=== PATIENT | female | born 1985 | race Caucasian/White ===

== ENCOUNTER 2017-08-16 22:18 | Emergency (ER) | payer SELFPAY ==
[2017-08-16 23:57] LABS: Urine Blood NEGATIVE (NEG); Urine Glucose NEGATIVE (NEG); Urine Protein NEGATIVE (NEG); Urine Specific Gravity <1.005 (1.005-1.030); Urine pH 5.5 (5.0-7.0)
--- NOTE | 2017-08-17 00:12 | ER ---
Nurse's Notes [facility] Name: Joyce Mera Age: 31 yrs Sex: Female : 1985 Arrival Date: 08/16/2017 Time: 22:20 Bed 8 Private MD: Diagnosis: Plantar fascial fibromatosis;Essential (primary) hypertension;Sprain of other specified parts of knee Presentation: 08/16 22:30 Presenting complaint: Patient states: that every morning she wakes up and cannot walk fc on her feet due to pain and swelling. Also has pain behind right knee. BP high 182/122 at [facility] yesterday. Transition of care: patient was not received from another setting of care. Onset of symptoms was 2017. Initial Sepsis Screen: Does the patient meet any 2 criteria? No. Patient's initial sepsis screen is negative. Does the patient have a suspected source of infection? No. Patient's initial sepsis screen is negative. Care prior to arrival: Medication(s) given: Motrin, last at 1430 Tylenol, last at 1430. 22:30 Method Of Arrival: Ambulatory fc 22:30 Acuity: ALICIA 3 fc PROMPT CARE RN: 22:33 LMP 08/01/2017 fc Historical: - Allergies: 22:33 No Known Allergies; fc - Home Meds: 22:33 None [Active]; fc - PMHx: 22:33 Hypertension; fc - PSHx: 22:33 ; fc - Immunization history:: Last tetanus immunization: up to date. - Social history:: Smoking status: Patient/guardian denies using tobacco. Screenin:18 Abuse screen: Denies threats or abuse. Nutritional screening: No deficits noted. ea Tuberculosis screening: No symptoms or risk factors identified. Fall Risk None identified. Assessment: 23:15 General: Appears uncomfortable, Behavior is calm, cooperative, appropriate for age. ea General: "I took my blood pressure at [facility] and it read super high, I have been having headaches and my right knee feels swollen". Pain: Complains of pain in right knee Pain radiates to right foot Pain currently is 8 out of 10 on a pain scale. Quality of pain is described as aching. Neuro: Level of Consciousness is awake, alert, obeys commands, Oriented to person, place, time, situation. Cardiovascular: Heart tones S1 S2 present Patient's skin is warm and dry. Respiratory: Airway is patent Respiratory effort is even, unlabored, Respiratory pattern is regular, symmetrical, Breath sounds are clear bilaterally. GI: Abdomen is non-distended, Bowel sounds present X 4 quads. Abd is soft and non tender. : No signs and/or symptoms were reported regarding the genitourinary system. EENT: No signs and/or symptoms were reported regarding the EENT system. Derm: Skin is pink, warm \\T\\ dry. Vital Signs: 22:34 BP 157 / 107; Pulse 98; Resp 18; Temp 97.9(TE); Pulse Ox 100% on R/A; Weight 99.79 kg fc (R); Height 5 ft. 3 in. (160.02 cm) (R); Pain 8/10; 23:45 BP 147 / 89; Pulse 81; Resp 18; Pulse Ox 100% on R/A; ea 22:34 Body Mass Index 38.97 (99.79 kg, 160.02 cm) fc ED Course: 22:20 Patient arrived in ED. am2 22:32 Triage completed. fc 22:33 Arm band placed on left wrist. Patient placed in an exam room, on a stretcher, Patient fc notified of wait time. 22:44 Abilio Fernandez MD is Attending Physician. gs 23:07 Pretty Hdez RN is Primary Nurse. ea 23:17 Patient has correct armband on for positive identification. Placed in gown. Bed in low ea position. Call light in reach. Side rails up X 1. [id number] 00:10 José Miguel Yu DO is Referral Physician. gs 00:10 No provider procedures requiring assistance completed. Patient did not have IV access ea during this emergency room visit. Administered Medications: No medications were administered Outcome: 00:11 Discharge ordered by . gs 00:15 Discharged to home ambulatory, with significant other. ea 00:15 Condition: good 00:15 Discharge instructions given to patient, Instructed on discharge instructions, follow up and referral plans. Demonstrated understanding of instructions, follow-up care. 00:15 Patient left the ED. ea Signatures: Laura Hodge RN RN Roselia Rowell am2 Pretty Hdez RN RN ea Starr, Gregory, MD MD
--- NOTE | 2017-08-17 00:12 | EDPHYS ---
Physician Documentation [facility] Name: Joyce Mera Age: 31 yrs Sex: Female : 1985 Arrival Date: 08/16/2017 Time: 22:20 Bed 8 Private MD: ED Physician Abilio Fernandez HPI: 08/17 00:04 This 31 yrs old Female presents to ER via Ambulatory with complaints of Feet gs Swelling, High Blood Pressure. 00:04 The patient presents with pain, that is acute, bilateral heel pain. The complaints gs affect the left foot, right foot. Context: Mechanism of Injury: Unknown the patient can fully bear weight. Onset: The symptoms/episode began/occurred 5 day(s) ago. Modifying factors: The symptoms are alleviated by nothing, the symptoms are aggravated by weight bearing, movement, wearing shoes. Associated signs and symptoms: Pertinent negatives: numbness, swelling, tingling. Severity of symptoms: At their worst the symptoms were moderate, in the emergency department the symptoms are unchanged. The patient has experienced similar episodes in the past, a few times. also noted bp elevated on no bp meds has had documented before. 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 - Social history:: Smoking status: Patient/guardian denies using tobacco. ROS: 08/17 00:04 All other systems are negative. gs Exam: 00:04 Head/Face: Normocephalic, atraumatic. Eyes: Pupils equal round and reactive to light, gs extra-ocular motions intact. Lids and lashes normal. Conjunctiva and sclera are non-icteric and not injected. Cornea within normal limits. Periorbital areas with no swelling, redness, or edema. ENT: Nares patent. No nasal discharge, no septal abnormalities noted. Tympanic membranes are normal and external auditory canals are clear. Oropharynx with no redness, swelling, or masses, exudates, or evidence of obstruction, uvula midline. Mucous membranes moist. Neck: Trachea midline, no thyromegaly or masses palpated, and no cervical lymphadenopathy. Supple, full range of motion without nuchal rigidity, or vertebral point tenderness. No Meningismus. Chest/axilla: Normal chest wall appearance and motion. Nontender with no deformity. No lesions are appreciated. Cardiovascular: Regular rate and rhythm with a normal S1 and S2. No gallops, murmurs, or rubs. Normal PMI, no JVD. No pulse deficits. Respiratory: Lungs have equal breath sounds bilaterally, clear to auscultation and percussion. No rales, rhonchi or wheezes noted. No increased work of breathing, no retractions or nasal flaring. Abdomen/GI: Soft, non-tender, with normal bowel sounds. No distension or tympany. No guarding or rebound. No evidence of tenderness throughout. Back: No spinal tenderness. No costovertebral tenderness. Full range of motion. Skin: Warm, dry with normal turgor. Normal color with no rashes, no lesions, and no evidence of cellulitis. Neuro: Awake and alert, GCS 15, oriented to person, place, time, and situation. Cranial nerves II-XII grossly intact. Motor strength 5/5 in all extremities. Sensory grossly intact. Cerebellar exam normal. Normal gait. 00:04 Constitutional: The patient appears alert, awake. 00:04 Musculoskeletal/extremity: Extremities: noted in the right foot and left foot: mild bl heel tenderness, reproduces pain, no edema, Circulation is intact in all extremities. Compartment Syndrome exam of affected extremity: is normal. Joints: the right knee displays painful range of motion, mild no swelling. Vital Signs: 08/16 22:34 BP 157 / 107; Pulse 98; Resp 18; Temp 97.9(TE); Pulse Ox 100% on R/A; Weight 99.79 kg fc (R); Height 5 ft. 3 in. (160.02 cm) (R); Pain 8/10; 23:45 BP 147 / 89; Pulse 81; Resp 18; Pulse Ox 100% on R/A; ea 22:34 Body Mass Index 38.97 (99.79 kg, 160.02 cm) fc MDM: 23:44 Patient medically screened. 08/17 00:04 Differential diagnosis: sprain, arthritis, plantar fasciitis. Data reviewed: vital gs signs, nurses notes. 00:11 Counseling: I had a detailed discussion with the patient and/or guardian regarding: the gs presence of at least one elevated blood pressure reading (>120/80) during this emergency department visit. Special discussion: I have referred the patient to see his PCP for further evaluation of high blood pressure. 08/16 22:52 Order name: Urine Dipstick--Ancillary (enter results); Complete Time: 00:12 rg2 Administered Medications: No medications were administered Disposition: 08/17/17 00:11 Discharged to Home. Impression: Plantar fascial fibromatosis, Essential (primary) hypertension, Sprain of other specified parts of knee. - Condition is Stable. - Discharge Instructions: Hypertension, Plantar Fasciitis, Managing Your High Blood Pressure. - Work release form, Medication Reconciliation Form, Thank You Letter, Antibiotic Education, Prescription Opioid Use form. - Follow up: José Miguel Yu DO; When: 2 - 3 days; Reason: Re-evaluation by your physician. Signatures: Dispatcher [employer] EDMS Laura Hodge RN RN fc Antunez, Elena, RN RN ea Starr, Gregory, MD MD gs Corrections: (The following items were deleted from the chart) 00:15 00:11 08/17/2017 00:11 Discharged to Home. Impression: Plantar fascial fibromatosis; ea Essential (primary) hypertension; Sprain of other specified parts of knee. Condition is Stable. Forms are Work release form, Medication Reconciliation Form, Thank You Letter, Antibiotic Education, Prescription Opioid Use. Follow up: José Miguel Yu; When: 2 - 3 days; Reason: Re-evaluation by your physician. gs
== END 2017-08-17 00:15 | disposition home or self-care (01) ==
LOC: ER 22:18
DX: M72.2 Plantar fascial fibromatosis (principal); I10 Essential (primary) hypertension; S83.91XA Sprain of unspecified site of right knee, initial encounter; X58.XXXA Exposure to other specified factors, initial encounter; Y92.9 Unspecified place or not applicable
CPT/HCPCS: 81003; 99281

== ENCOUNTER 2017-08-18 15:18 | Emergency (ER) | payer SELFPAY ==
[2017-08-18] MEDS ORDERED: ACETAMINOPHEN 325 MG TABLET ONE (16:25)
[2017-08-18] MEDS ORDERED: NA CHLORIDE 0.9% 1,000 ML ONE (16:26)
[2017-08-18] MEDS ORDERED: ONDANSETRON 4 MG/2 ML VIAL ONE (16:26)
[2017-08-18 16:29] LABS: Absolute Monocytes 0.3 K/uL (0.1-1.3); Absolute Neutrophil 3.8 K/uL (1.8-8.0); Basophils % 0.5 % (0-1.3); Eosinophils % 0.2 % (0-4.4); Hematocrit 15.4 % (36.0-45.0); MCH 21.4 pg (27.0-35.0); MCV 72.2 fL (80-100); MPV 8.6 fL (7.6-11.3); Monocytes % 5.5 % (3.3-12.3); RBC Red Blood Cell Count 2.13 M/uL (3.86-4.86)
[2017-08-18 16:38] LABS: Bicarbonate 24 mEq/L (21-31); Glucose Level 93 mg/dL (65-120); Lipase 18 U/L (22-51); Potassium 3.3 mEq/L (3.6-5.0); Sodium Level 138 mEq/L (135-145)
[2017-08-18 16:45] LABS: ALT/SGPT 27 IU/L (10-60); AST/SGOT 26 IU/L (10-42); Albumin 3.5 g/dL (3.2-5.5); Alkaline Phosphatase 56 IU/L (42-121); BUN Blood Urea Nitrogen 34 mg/dL (6-20); Bilirubin Direct < 0.1 mg/dL (0-0.2); Bilirubin Total 0.5 mg/dL (0.3-1.2); Protein, Total 6.1 g/dL (6.0-8.3)
[2017-08-18 16:52] LABS: Urine Blood NEGATIVE (NEG); Urine Glucose NEGATIVE (NEG); Urine Protein NEGATIVE (NEG); Urine Specific Gravity 1.015 (1.005-1.030); Urine pH 5.5 (5.0-7.0)
[2017-08-18 16:54] LABS: Blood Morphology Comment NOTED (NOT SEEN); Hypochromasia 2+; Platelet Estimate ADEQ; Polychromasia 1+; Urine White Blood Cell Casts OK
[2017-08-18 16:55] LABS: Anisocytosis 2+
[2017-08-18 17:00] LABS: Urine Bacteria >50 /HPF (<20); Urine Culture Reflex Order NOT NEEDED; Urine RBC <5 /HPF (NONE SEEN); Urine Yeast FEW (NONE SEEN)
[2017-08-18 17:01] LABS: Urine Yeast with Hyphae PRESENT
[2017-08-18] MEDS ORDERED: CEFTRIAXONE/SWI 1gm 1 GM/10 ML SYR ONE (17:26)
[2017-08-18] MEDS ORDERED: PANTOPRAZOLE 40 MG INJ ONE (17:26)
--- NOTE | 2017-08-18 17:47 | ER ---
Nurse's Notes [facility] Name: Joyce Mera Age: 31 yrs Sex: Female : 1985 Arrival Date: 08/18/2017 Time: 15:19 Bed 7 Private MD: Diagnosis: Presentation: 08/18 15:23 Presenting complaint: Patient states: "I've been vomiting black today since early this aa5 morning". Pt states "I also feel weak and my heart racing". Transition of care: patient was not received from another setting of care. Onset of symptoms was August 18, 2017. Initial Sepsis Screen: Does the patient meet any 2 criteria? No. Patient's initial sepsis screen is negative. Does the patient have a suspected source of infection? No. Patient's initial sepsis screen is negative. Care prior to arrival: None. 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 - Social history:: Smoking status: Patient/guardian denies using tobacco. Screenin:18 Abuse screen: Denies threats or abuse. Denies injuries from another. Nutritional ph screening: No deficits noted. Tuberculosis screening: No symptoms or risk factors identified. Fall Risk None identified. Assessment: 16:30 General: Appears in no apparent distress. uncomfortable, well groomed, Behavior is ph calm, cooperative, appropriate for age, Reports fatigue for Denies fever. Pain: Complains of pain in head, chest, and abdomen. Neuro: Level of Consciousness is awake, alert, obeys commands, Oriented to person, place, time, situation, Reports dizziness, headache weakness. Cardiovascular: Reports chest pain, fatigue, lightheadedness, nausea, palpitations, shortness of breath, vomiting, Capillary refill < 3 seconds in bilateral fingers Patient's skin is warm and dry. Respiratory: GI: Abdomen is round non-distended, Bowel sounds present X 4 quads. Reports upper abdominal pain, bloody stool, nausea, vomiting, black stool, and black vomitus. Derm: Skin is intact, Skin is pale, Skin temperature is cool. Musculoskeletal: Circulation, motion, and sensation intact. Range of motion: intact in all extremities. 17:30 Reassessment: Patient appears in no apparent distress at this time. Patient and/or ph family updated on plan of care and expected duration. Pain level reassessed. Patient is alert, oriented x 3, equal unlabored respirations, skin warm/dry/pink. Pt resting quietly, VSS. 18:52 Reassessment: Patient appears in no apparent distress at this time. Patient and/or ph family updated on plan of care and expected duration. Pain level reassessed. Patient is alert, oriented x 3, equal unlabored respirations, skin warm/dry/pink. Pt resting quietly, receiving PRBCs, tolerating well, VSS, awaiting transfer. 19:06 General: Appears in no apparent distress. comfortable, Behavior is calm, cooperative, ao appropriate for age. Pain: Denies pain. Neuro: Level of Consciousness is awake, alert, obeys commands, Oriented to person, place, time, situation, Appropriate for age Moves all extremities. Speech is normal. Cardiovascular: Capillary refill < 3 seconds Patient's skin is warm and dry. Respiratory: Airway is patent Respiratory effort is even, unlabored, Respiratory pattern is regular, symmetrical. GI: Abdomen is round non-distended. : No signs and/or symptoms were reported regarding the genitourinary system. EENT: No signs and/or symptoms were reported regarding the EENT system. Derm: Skin is intact, Skin is pink, warm \\T\\ dry. Skin temperature is warm. Musculoskeletal: Circulation, motion, and sensation intact. Range of motion: intact in all extremities. 20:10 Reassessment: Patient appears in no apparent distress at this time. Patient and/or ao family updated on plan of care and expected duration. Pain level reassessed. Patient is alert, oriented x 3, equal unlabored respirations, skin warm/dry/pink. Patient is thinking that she is going to refused a transfer. Sheely CATALOGING ASSISTANT was notified. 21:10 Reassessment: Patient appears in no apparent distress at this time. Patient and/or ao family updated on plan of care and expected duration. Pain level reassessed. Patient is alert, oriented x 3, equal unlabored respirations, skin warm/dry/pink. Patient stated that she will not go to this other facility. Patient was advised that she will have to go AMA. Tamie CATALOGING ASSISTANT was at bedside talking to patient about the outcome if she doesn't go. 22:20 Reassessment: Patient appears in no apparent distress at this time. Patient and/or ao family updated on plan of care and expected duration. Pain level reassessed. Patient is alert, oriented x 3, equal unlabored respirations, skin warm/dry/pink. Patient to leave AMA after infusion is done. 23:26 Reassessment: Patient and/or family updated on plan of care and expected duration. Pain ao level reassessed. Blood transfusion complete. Patient left AMA. and was told to comeback is any problems occur> patient stated that she will follow up with a GI doctor. Vital Signs: 15:24 BP 126 / 79; Pulse 94; Resp 16 S; Temp 98.2(TE); Pulse Ox 100% on R/A; Weight 99.34 kg aa5 (R); Height 5 ft. 3 in. (160.02 cm) (R); Pain 9/10; 17:18 BP 144 / 91; Pulse 97; Resp 18; Temp 97.9; Pulse Ox 100% on R/A; ph 18:35 BP 142 / 83; Pulse 84; Resp 16; Temp 97.6; Pulse Ox 97% on R/A; ph 19:06 BP 148 / 88; Pulse 97; Resp 16; Temp 99.3(O); Pulse Ox 98% on R/A; Pain 0/10; ao 20:10 BP 136 / 90; Pulse 82; Resp 16; Temp 99.2(O); Pulse Ox 99% on R/A; Pain 0/10; ao 21:10 BP 156 / 98; Pulse 80; Resp 18; Pulse Ox 100% on R/A; Pain 0/10; ao 22:30 BP 145 / 60; Pulse 82; Resp 16; Pulse Ox 100% ; Pain 0/10; ao 23:27 BP 148 / 94; Pulse 98; Resp 16; Pulse Ox 100% ; Pain 0/10; ao 15:24 Body Mass Index 38.79 (99.34 kg, 160.02 cm) aa5 ED Course: 15:19 Patient arrived in ED. as 15:23 Triage completed. aa5 15:23 Arm band placed on. aa5 15:34 [facility] snw 15:34 Aman Frazier MD is Attending Physician. snw 16:30 Inserted saline lock: 20 gauge in right antecubital area, using aseptic technique. ph Blood collected. 17:10 Jacquie Ochoa, RN is Primary Nurse. ph 17:13 Patient has correct armband on for positive identification. Placed in gown. Bed in low ph position. Call light in reach. Side rails up X 1. Pulse ox on. NIBP on. Warm blanket given. 17:16 initiated transfer with Xiao from [facility]. eb 17:35 GI from [facility] called to speak to Tamie CATALOGING ASSISTANT for pt consult for transfer. eb 17:40 Hospitalist called from [facility] to Speak to Tamie CATALOGING ASSISTANT for patient consult on transfer. eb 18:54 No provider procedures requiring assistance completed. Patient transferred, IV remains ph in place. Administered Medications: 16:45 Drug: NS 0.9% 1000 ml Route: IV; Rate: 1 bolus; Site: right antecubital; ph 19:10 Follow up: Response: No adverse reaction; IV Status: Completed infusion ph 16:45 Drug: Zofran 4 mg Route: IVP; Site: right antecubital; ph 19:10 Follow up: Response: No adverse reaction ph 17:00 Drug: Rocephin 1 grams Route: IV; Rate: calculated rate; Site: right antecubital; ph 19:09 Follow up: Response: No adverse reaction; IV Status: Completed infusion ph 17:30 Drug: ProTONIX 40 mg Route: IVP; Site: right antecubital; ph 19:10 Follow up: Response: No adverse reaction ph Medication: 18:35 Blood products: PRBCs X 1 unit given. ph Outcome: 17:47 ER care complete, transfer ordered by . snw 23:23 AMA AMA form signed ao 23:23 Condition: stable 23:23 Instructed on Patient decided to leave AMA. Patient was advised to return to the ER if any problems occur while she waits to follow up with a GI doctor 23:33 Patient left the ED. ao Signatures: Tamie Adam FNP-C FNP-Toma Fraser Audri, RN RN aa5 Jacquie Ochoa, REJI RN ph Beau Akbar RN RN Erin Finn
--- NOTE | 2017-08-18 17:47 | EDPHYS ---
Physician Documentation [facility] Name: Joyce Mera Age: 31 yrs Sex: Female : 1985 Arrival Date: 08/18/2017 Time: 15:19 Bed 7 Private MD: ED Physician Aman Frazier HPI: 08/18 16:06 This 31 yrs old Female presents to ER via Ambulatory with complaints of snw Palpitations, Vomiting, Headache. 16:06 The patient presents to the emergency department with nausea, vomiting, diarrhea. snw Onset: The symptoms/episode began/occurred suddenly, today. Possible causes: unknown. The symptoms are aggravated by movement, pressure, food . Associated signs and symptoms: Pertinent positives: abdominal pain, diarrhea, nausea, vomiting. Severity of symptoms: At their worst the symptoms were moderate. It is unknown whether or not the patient has had similar symptoms in the past. The patient has not recently seen a physician. hx of anemia, takes iron. 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 - Social history:: Smoking status: Patient/guardian denies using tobacco. ROS: 16:05 Constitutional: Negative for fever, chills, and weight loss, Eyes: Negative for injury, snw pain, redness, and discharge, ENT: Negative for injury, pain, and discharge, Neck: Negative for injury, pain, and swelling, Cardiovascular: Negative for chest pain, palpitations, and edema, Respiratory: Negative for shortness of breath, cough, wheezing, and pleuritic chest pain. 16:05 : Negative for injury, bleeding, discharge, and swelling, MS/Extremity: Negative for injury and deformity, Skin: Negative for injury, rash, and discoloration, Neuro: Negative for headache, weakness, numbness, tingling, and seizure. 16:05 Abdomen/GI: Positive for abdominal pain, nausea, vomiting, and diarrhea, abdominal cramps. Exam: 16:05 Constitutional: This is a well developed, well nourished patient who is awake, alert, snw and in no acute distress. +pallor, hx of anemia Head/Face: Normocephalic, atraumatic. Eyes: Pupils equal round and reactive to light, extra-ocular motions intact. Lids and lashes normal. Conjunctiva and sclera are non-icteric and not injected. Cornea within normal limits. Periorbital areas with no swelling, redness, or edema. ENT: Nares patent. No nasal discharge, no septal abnormalities noted. Tympanic membranes are normal and external auditory canals are clear. Oropharynx with no redness, swelling, or masses, exudates, or evidence of obstruction, uvula midline. Mucous membranes moist. Neck: Trachea midline, no thyromegaly or masses palpated, and no cervical lymphadenopathy. Supple, full range of motion without nuchal rigidity, or vertebral point tenderness. No Meningismus. Chest/axilla: Normal chest wall appearance and motion. Nontender with no deformity. No lesions are appreciated. 16:05 Respiratory: Lungs have equal breath sounds bilaterally, clear to auscultation and percussion. No rales, rhonchi or wheezes noted. No increased work of breathing, no retractions or nasal flaring. 16:05 Back: No spinal tenderness. No costovertebral tenderness. Full range of motion. Skin: Warm, dry with normal turgor. Normal color with no rashes, no lesions, and no evidence of cellulitis. MS/ Extremity: Pulses equal, no cyanosis. Neurovascular intact. Full, normal range of motion. Neuro: Awake and alert, GCS 15, oriented to person, place, time, and situation. Cranial nerves II-XII grossly intact. Motor strength 5/5 in all extremities. Sensory grossly intact. Cerebellar exam normal. Normal gait. 16:05 Cardiovascular: Rate: tachycardic, Heart sounds: normal. 16:05 Abdomen/GI: Inspection: abdomen appears normal, Bowel sounds: hyperactive, Palpation: mild abdominal tenderness, in all quadrants, Rectal exam: rectal tone normal, Stool: guaiac positive, black. Vital Signs: 15:24 BP 126 / 79; Pulse 94; Resp 16 S; Temp 98.2(TE); Pulse Ox 100% on R/A; Weight 99.34 kg aa5 (R); Height 5 ft. 3 in. (160.02 cm) (R); Pain 9/10; 17:18 BP 144 / 91; Pulse 97; Resp 18; Temp 97.9; Pulse Ox 100% on R/A; ph 18:35 BP 142 / 83; Pulse 84; Resp 16; Temp 97.6; Pulse Ox 97% on R/A; ph 19:06 BP 148 / 88; Pulse 97; Resp 16; Temp 99.3(O); Pulse Ox 98% on R/A; Pain 0/10; ao 20:10 BP 136 / 90; Pulse 82; Resp 16; Temp 99.2(O); Pulse Ox 99% on R/A; Pain 0/10; ao 21:10 BP 156 / 98; Pulse 80; Resp 18; Pulse Ox 100% on R/A; Pain 0/10; ao 22:30 BP 145 / 60; Pulse 82; Resp 16; Pulse Ox 100% ; Pain 0/10; ao 23:27 BP 148 / 94; Pulse 98; Resp 16; Pulse Ox 100% ; Pain 0/10; ao 15:24 Body Mass Index 38.79 (99.34 kg, 160.02 cm) aa5 MDM: 16:00 Patient medically screened. snw 17:47 Data reviewed: vital signs, nurses notes. Data interpreted: Pulse oximetry: on room air snw is 100 %. Interpretation: normal. Counseling: I had a detailed discussion with the patient and/or guardian regarding: the historical points, exam findings, and any diagnostic results supporting the discharge/admit diagnosis, the presence of at least one elevated blood pressure reading (>120/80) during this emergency department visit, lab results, the need to transfer to another facility, for higher level of care, [facility] does not immediately have the required specialist. Physician consultation: [facility] was called at 17:48, was contacted at 17:48, regarding regarding transfer, to [facility]. Spoke to GI and Hospitalist at [facility], Want blood products started. 18:45 Refusal of service: The patient/guardian displays adequate decision making capability snw and despite a detailed discussion of alternatives, benefits, risks, and consequences refuses: transfer. Pt refuses transfer to [facility]. Encouraged pt to reconsider. Declined. Risks discussed. Pt voices understanding and still refuses transfer. Pt encouraged to at least stay to receive second unit PRBC. Pt agrees to rec blood but will not stay for re-eval or transfer.. 18:45 ED course: Pt rec'd 2nd unit. Leaves ED ambulatory with friend. Refuses further care. snw Declines transfer. [facility] notified.. 08/18 15:35 Order name: Basic Metabolic Panel; Complete Time: 16:45 snw 08/18 15:35 Order name: CBC with Diff; Complete Time: 16:58 snw 08/18 15:35 Order name: Hepatic Function; Complete Time: 16:45 snw 08/18 15:35 Order name: Lipase; Complete Time: 16:45 snw 08/18 15:35 Order name: Urine Microscopic Only; Complete Time: 17:03 snw 08/18 16:42 Order name: CBC Smear Scan; Complete Time: 16:58 EDMS 08/18 16:45 Order name: Type And Screen snw 08/18 16:46 Order name: Type and Screen EDSD 08/18 16:48 Order name: Urine Dipstick--Ancillary (enter results); Complete Time: 16:58 eb 08/18 16:48 Order name: Urine --Ancillary (enter results); Complete Time: 16:58 eb 08/18 17:38 Order name: Bb Add On eb 08/18 17:43 Order name: ABO/RH no charge; Complete Time: 17:44 EDMS 08/18 15:35 Order name: Urine Test (obtain specimen); Complete Time: 17:12 snw 08/18 15:35 Order name: IV Saline Lock; Complete Time: 17:12 snw 08/18 15:35 Order name: Labs collected and sent; Complete Time: 17:12 snw 08/18 15:35 Order name: Urine Dipstick-Ancillary (obtain specimen); Complete Time: 17:12 snw 08/18 16:45 Order name: Consent for Blood Transfusion; Complete Time: 17:14 snw 08/18 19:11 Order name: NPO; Complete Time: 19:12 snw Administered Medications: 16:45 Drug: NS 0.9% 1000 ml Route: IV; Rate: 1 bolus; Site: right antecubital; ph 19:10 Follow up: Response: No adverse reaction; IV Status: Completed infusion ph 16:45 Drug: Zofran 4 mg Route: IVP; Site: right antecubital; ph 19:10 Follow up: Response: No adverse reaction ph 17:00 Drug: Rocephin 1 grams Route: IV; Rate: calculated rate; Site: right antecubital; ph 19:09 Follow up: Response: No adverse reaction; IV Status: Completed infusion ph 17:30 Drug: ProTONIX 40 mg Route: IVP; Site: right antecubital; ph 19:10 Follow up: Response: No adverse reaction ph Disposition: 08/19 10:35 Co-signature as Attending Physician, Aman Frazier MD. rn Disposition: 08/18/17 23:33 Patient has left against medical advice. - Patients states they are going to Home. - Condition is Stable. Signatures: Dispatcher [employer] EDMS Tamie Adam, SOCIAL SCIENCE INSTRUCTOR-C SOCIAL SCIENCE INSTRUCTOR-Csnw Aman Frazier MD MD rn Calderon, Audri, RN RN aa5 Jacquie Ochoa RN RN ph Ortiz, Alex RN RN ao Corrections: (The following items were deleted from the chart) 08/18 17:50 16:05 Abdomen/GI: Inspection: abdomen appears normal, Bowel sounds: hyperactive, snw Palpation: mild abdominal tenderness, in all quadrants, snw 18:17 17:47 08/18/2017 17:47 Transfer ordered to [facility]. Diagnosis is snw Gastrointestinal bleeding; Urinary tract infection, site not specified; Iron deficiency anemia. Reason for transfer: Higher level of care. [facility]. Condition is Stable. Problem is an acute exacerbation. Symptoms have worsened. snw 23:27 18:17 08/18/2017 17:47 Transfer ordered to [facility]. Diagnosis is ao Gastrointestinal bleeding; Urinary tract infection, site not specified; Iron deficiency anemia. Reason for transfer: Higher level of care. Accepting physician is Dr. Patel. Condition is Stable. Problem is an acute exacerbation. Symptoms have worsened. snw
[2017-08-18] MEDS ORDERED: NA CHLORIDE 0.9% 500 ML ONE (18:27)
== END 2017-08-18 23:33 | disposition left against medical advice (07) ==
LOC: ER 15:18
PROC: 30233N1 Transfusion of Nonautologous Red Blood Cells into Peripheral Vein, Percutaneous Approach (ICD-10-PCS; principal; 2017-08-18)
DX: R10.9 Unspecified abdominal pain (principal); R19.7 Diarrhea, unspecified; I10 Essential (primary) hypertension
CPT/HCPCS: 36415; 36430; 80048; 80076; 81003; 81015; 81025; 83690; 85025; 86850; 86900; 86901; 96365; 96366; 96375; 99284; C9113; J0696; J2405; J7030; P9016

== ENCOUNTER 2017-10-28 10:39 | Emergency (ER) | payer SELFPAY ==
--- OUTSIDE RECORDS SUMMARY | 2017-10-28 10:41 | XMS REPORT | Clinical Summary ---
:1985 Author Organization [facility] Address [address] [place] [address] Phone Care Team Providers Name Role Phone Unavailable Primary Care Provider Unavailable Allergies Not on File Current Medications Not on file Active Problems Problem Noted Date Coffee ground emesis 08/18/2017 Acute blood loss anemia 08/18/2017 Overview: In anticipation for transfer to [facility] from [facility] to [place] [facility] for acute blood loss anemia with evidence of upper GI bleed. GI aware and planning to perform upper endoscopy on Sunday once patient is able to be admitted. ETA unknown at this time. GI will see in the morning of admission, no need to page overnight unless more symptoms of active GI bleeding are apparent such as continuous me federico or bright red emesis and hemodynamic instability. Already received 2units at [facility] in anticipation for transfer. Will need to perform serial CBCs q6hs and keep NPO with IV fluids. Garfield Worley MD PGY6 Gastroenterology and Hepatology Fellow [facility] Encounters Date Type Specialty Care Team Description 08/20/2017 Procedure Pass Gastroenterology 08/19/2017 Anesthesia Event Gastroenterology Crystal Tobias MD after 10/27/2016 Social History Tobacco Use Types Packs/Day Years Used Date Never Assessed Sex Assigned at Date Recorded Not on file Last Filed Vital Signs Not on file Plan of Treatment Not on file Results Not on fileafter 10/27/2016
[2017-10-28] MEDS ORDERED: NA CHLORIDE 0.9% 1,000 ML ONE (11:32)
[2017-10-28] MEDS ORDERED: MORPHINE 4 MG/ML SYR ONE (11:32)
[2017-10-28] MEDS ORDERED: ONDANSETRON 4 MG/2 ML VIAL ONE (11:32)
[2017-10-28 11:57] LABS: Absolute Lymphocytes (CBC) 1.1 K/uL (0.7-4.9); Absolute Monocytes 0.4 K/uL (0.1-1.3); Absolute Neutrophil 3.4 K/uL (1.8-8.0); Basophils % 0.7 % (0-1.3); Eosinophils % 1.7 % (0-4.4); Hematocrit 30.8 % (36.0-45.0); Lymphocytes % 22.1 % (15.3-44.8); MCH 22.4 pg (27.0-35.0); MCV 72.7 fL (80-100); MPV 8.4 fL (7.6-11.3); RBC Red Blood Cell Count 4.24 M/uL (3.86-4.86)
[2017-10-28] MEDS ORDERED: KETOROLAC 30 MG/ML INJ ONE (12:03)
[2017-10-28 12:13] LABS: Urine Bacteria <20 /HPF (<20); Urine Culture Reflex Order REFLEXED; Urine RBC <5 /HPF (NONE SEEN)
[2017-10-28 12:14] LABS: Urine Blood NEGATIVE (NEG); Urine Glucose NEGATIVE (NEG); Urine Protein NEGATIVE (NEG); Urine pH 5.5 (5.0-7.0)
[2017-10-28 12:16] LABS: Albumin 4.1 g/dL (3.4-5.0); Bilirubin Direct 0.1 mg/dL (0-0.2); Bilirubin Total 0.5 mg/dL (0.2-1.0); Potassium 3.3 mmol/L (3.5-5.1); Protein, Total 7.6 g/dL (6.4-8.2)
--- NOTE | 2017-10-28 12:37 | RAD REPORT ---
EXAM DESCRIPTION: CT - Abdomen Pelvis W Contrast - 10/28/2017 12:19 pm CLINICAL HISTORY: Abdominal pain with vomiting and diarrhea since yesterday COMPARISON: none. TECHNIQUE: Computed axial tomography of the abdomen pelvis was obtained. 100 cc Isovue-300 was admin istered intravenously. Oral contrast was not requested which limits evaluation of bowel. All CT scans are performed using dose optimization technique as appropriate and may include automated exposure control or mA/KV adjustment according to patient size. FINDINGS: The liver, spleen, pancreas, adrenal and kidneys appear unremarkable. There is no evidence of diverticulitis. The appendix is normal A 2 centimeter irregularly-shaped left ovarian cyst is present without significant free-fluid IMPRESSION: A 2 centimeter irregularly-shaped left ovarian cyst is present without significant free- fluid. It may have recently ruptured
--- NOTE | 2017-10-28 13:57 | ER ---
Nurse's Notes [facility] Name: Joyce Mera Age: 31 yrs Sex: Female : 1985 Arrival Date: 10/28/2017 Time: 10:42 Bed 14 Private MD: None, None Diagnosis: Vomiting;Diarrhea, unspecified;Unspecified ovarian cysts Presentation: 10/28 10:44 Presenting complaint: Patient states: Vomiting, abdominal cramping, diarrhea since aj1 yesterday. States that she took an antidiarrheal but it has not helped. Denies fever. Reports RLQ, LLQ abdominal pain. Transition of care: patient was not received from another setting of care. Onset of symptoms was October 27, 2017. Risk Assessment: Do you want to hurt yourself or someone else? Patient reports no desire to harm self or others. Initial Sepsis Screen: Does the patient meet any 2 criteria? No. Patient's initial sepsis screen is negative. Does the patient have a suspected source of infection? No. Patient's initial sepsis screen is negative. Care prior to arrival: None. 10:44 Method Of Arrival: Ambulatory aj1 10:44 Acuity: ALICIA 3 aj1 Triage Assessment: 10:47 General: Appears in no apparent distress. uncomfortable, Behavior is calm, cooperative, aj1 appropriate for age. Pain: Complains of pain in right lower quadrant and left lower quadrant Pain radiates to epigastric area Pain currently is 7 out of 10 on a pain scale. Quality of pain is described as sharp, Pain began 1 day ago. Is continuous, Alleviated by staying still Aggravated by nothing. Neuro: Level of Consciousness is awake, alert, obeys commands. Cardiovascular: Patient's skin is warm and dry. Respiratory: Airway is patent Respiratory effort is even, unlabored, Respiratory pattern is regular, symmetrical. GI: Abdomen is non-distended, Reports upper abdominal pain, cramping, diarrhea, nausea, vomiting. Derm: Skin is pink, warm \T\ dry. normal. 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 - Social history:: Smoking status: Patient/guardian denies using tobacco. - Ebola Screening: : Patient denies travel to an Ebola-affected area in the 21 days before illness onset. Screenin:51 Abuse screen: Denies threats or abuse. Nutritional screening: No deficits noted. rb1 Tuberculosis screening: No symptoms or risk factors identified. Fall Risk None identified. Assessment: 10:51 General: Appears in no apparent distress. comfortable, Behavior is calm, cooperative. rb1 General: Reports possible fever, didn't actually measure her temperature. Pain: Complains of pain in suprapubic Pain currently is 7 out of 10 on a pain scale. Pain began 1 day ago. Neuro: Level of Consciousness is awake, alert, obeys commands, Oriented to person, place, time, situation. Cardiovascular: Capillary refill < 3 seconds is brisk in bilateral fingers. Respiratory: Airway is patent Respiratory effort is even, unlabored, Respiratory pattern is regular, symmetrical. GI: Reports diarrhea, nausea, vomiting. GI: Bowel sounds present X 4 quads. hyperactive in right upper quadrant, left upper quadrant, right lower quadrant and left lower quadrant. : No signs and/or symptoms were reported regarding the genitourinary system. Derm: Skin is pink, warm \T\ dry. 11:49 Reassessment: Patient appears in no apparent distress at this time. No changes from rb1 previously documented assessment. Friend at bedside. 12:40 Reassessment: Patient appears in no apparent distress at this time. Patient and/or rb1 family updated on plan of care and expected duration. Pain level reassessed. Patient is alert, oriented x 3, equal unlabored respirations, skin warm/dry/pink. Pain 5/10. 13:33 Reassessment: Patient appears in no apparent distress at this time. No changes from rb1 previously documented assessment. Friend at bedside. 14:26 Reassessment: Patient appears in no apparent distress at this time. Patient and/or rb1 family updated on plan of care and expected duration. Pain level reassessed. Patient is alert, oriented x 3, equal unlabored respirations, skin warm/dry/pink. Patient states feeling better. Vital Signs: 10:47 BP 150 / 102; Pulse 82; Resp 18; Temp 98.2; Pulse Ox 97% on R/A; Weight 92.99 kg (R); aj1 Height 5 ft. 3 in. (160.02 cm) (R); Pain 6/10; 12:40 BP 148 / 88; Pulse 63; Resp 18; Pulse Ox 100% on R/A; dh3 13:33 BP 137 / 84; Pulse 61; Resp 17; Pulse Ox 99% on R/A; rb1 14:26 BP 134 / 81; Pulse 66; Resp 17; Pulse Ox 99% on R/A; rb1 10:47 Body Mass Index 36.31 (92.99 kg, 160.02 cm) aj1 ED Course: 10:42 Patient arrived in ED. sb2 10:42 None, None is Private Physician. sb2 10:46 Triage completed. aj1 10:47 Arm band placed on Patient placed in an exam room. aj1 10:50 Lalit Kasper PA is PHCP. jmm 10:50 So Alicia MD is Attending Physician. jmm 10:51 Patient has correct armband on for positive identification. Bed in low position. Call rb1 light in reach. Side rails up X 1. Pulse ox on. NIBP on. 11:11 Meme Adamson, RN is Primary Nurse. rb1 11:45 Urine collected: clean catch specimen, clear. dh3 11:49 Initial lab(s) drawn, by me, sent to lab. Inserted saline lock: 22 gauge in right cb2 antecubital area, using aseptic technique. Blood collected. 12:19 CT Abd/Pelvis - W/Contrast In Process Unspecified. EDMS 12:20 CT completed. Patient tolerated procedure well. Patient moved back from CT. bq 14:26 No provider procedures requiring assistance completed. IV discontinued, intact, rb1 bleeding controlled, No redness/swelling at site. Pressure dressing applied. Administered Medications: 11:53 Drug: Zofran 4 mg Route: IVP; Site: right antecubital; rb1 12:09 Follow up: Response: No adverse reaction; Nausea is decreased rb1 11:53 Drug: NS 0.9% 1000 ml Route: IV; Rate: 1 bolus; Site: right antecubital; rb1 13:08 Follow up: IV Status: Completed infusion rb1 12:04 Not Given (Patient Refused; Provider notified.): morphine 2 mg IVP once rb1 12:05 Drug: TORadol 30 mg Route: IVP; Site: right antecubital; rb1 12:30 Follow up: Response: No adverse reaction; Pain is decreased rb1 Outcome: 13:57 Discharge ordered by MD. mendoza 14:26 Patient left the ED. rb1 14:26 Discharged to home ambulatory, with significant other. rb1 14:26 Condition: stable 14:26 Discharge instructions given to patient, Instructed on discharge instructions, follow up and referral plans. medication usage, Demonstrated understanding of instructions, follow-up care, medications, Prescriptions given X 2. Signatures: Dispatcher [employer] EDAmanda Bowden, RN RN aj1 Lalit Kasper PA PA jmm Quilty, Betty bq Barber, Rebecca RN RN rb1 Marko Pearce Deanna 3 Kristin Khoury 2 Corrections: (The following items were deleted from the chart) 12:50 12:49 BP 148 / 88; Pulse 63bpm; Resp 18bpm; Pulse Ox 100% RA; 3 3 14:56 14:54 Patient left the ED. rb1 rb1
--- NOTE | 2017-10-28 13:57 | EDPHYS ---
Physician Documentation [facility] Name: Joyce Mera Age: 31 yrs Sex: Female : 1985 Arrival Date: 10/28/2017 Time: 10:42 Bed 14 Private MD: None, None ED Physician So Alicia HPI: 10/28 11:07 This 31 yrs old Female presents to ER via Ambulatory with complaints of jmm Vomiting/Diarrhea. 11:07 The patient presents to the emergency department with nausea, vomiting, diarrhea, jmm abdominal pain. Onset: The symptoms/episode began/occurred acutely, last night. Possible causes: unknown. Associated signs and symptoms: Pertinent negatives: fever. This is a 31 year old female with a history of htn and anemia that presents to the ED with abdominal pain, vomiting, diarrhea beginning last night. patient denies recent travel or antibiotic use. . 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 - Social history:: Smoking status: Patient/guardian denies using tobacco. - Ebola Screening: : Patient denies travel to an Ebola-affected area in the 21 days before illness onset. ROS: 11:07 Constitutional: Negative for fever, chills, and weight loss, Cardiovascular: Negative jmm for chest pain, palpitations, and edema, Respiratory: Negative for shortness of breath, cough, wheezing, and pleuritic chest pain. 11:07 MS/Extremity: Negative for injury and deformity, Skin: Negative for injury, rash, and discoloration, Neuro: Negative for headache, weakness, numbness, tingling, and seizure. 11:07 Abdomen/GI: Positive for abdominal pain, nausea and vomiting, diarrhea. 11:07 All other systems are negative. Exam: 11:07 Constitutional: This is a well developed, well nourished patient who is awake, alert, jmm and in no acute distress. Head/Face: atraumatic. Chest/axilla: Normal chest wall appearance and motion. Cardiovascular: Regular rate and rhythm. No edema appreciated Respiratory: Normal respirations, no respiratory distress appreciated 11:07 Skin: General appearance color normal 11:07 Abdomen/GI: Inspection: obese Palpation: mild abdominal tenderness, in the right lower quadrant and left lower quadrant. 11:07 Back: ROM is normal. Vital Signs: 10:47 BP 150 / 102; Pulse 82; Resp 18; Temp 98.2; Pulse Ox 97% on R/A; Weight 92.99 kg (R); aj1 Height 5 ft. 3 in. (160.02 cm) (R); Pain 6/10; 12:40 BP 148 / 88; Pulse 63; Resp 18; Pulse Ox 100% on R/A; dh3 13:33 BP 137 / 84; Pulse 61; Resp 17; Pulse Ox 99% on R/A; rb1 14:26 BP 134 / 81; Pulse 66; Resp 17; Pulse Ox 99% on R/A; rb1 10:47 Body Mass Index 36.31 (92.99 kg, 160.02 cm) aj1 MDM: 11:06 Patient medically screened. [facility] 12:45 ED course: CT imaging did not reveal an acute intraabdominal process. Appendix was [facility] unremarkable. Patient symptoms of vomiting and diarrhea appear more consistent with gastroenteritis. Patient given early appendicitis return precautions. Patient is able to tolerate PO in the ED. . 13:55 Data reviewed: vital signs, nurses notes, lab test result(s), radiologic studies, CT [facility] scan. Counseling: I had a detailed discussion with the patient and/or guardian regarding: the historical points, exam findings, and any diagnostic results supporting the discharge/admit diagnosis, lab results, radiology results, the need for outpatient follow up, to return to the emergency department if symptoms worsen or persist or if there are any questions or concerns that arise at home. Response to treatment: the patient's symptoms have markedly improved after treatment. 10/28 11: Order name: Amylase, Serum; Complete Time: 12:18 [facility] 10/28 11:07 Order name: Basic Metabolic Panel; Complete Time: 12:18 [facility] 10/28 11:07 Order name: CBC with Diff; Complete Time: 12:06 [facility] 10/28 11:07 Order name: Creatinine for Radiology; Complete Time: 12:18 [facility] 10/28 11:07 Order name: Hepatic Function; Complete Time: 12:18 [facility] 10/28 11:07 Order name: Lipase; Complete Time: 12:18 [facility] 10/28 11:07 Order name: Urine Microscopic Only; Complete Time: 12:18 [facility] 10/28 11:46 Order name: CT Abd/Pelvis - W/Contrast; Complete Time: 12:39 [facility] 10/28 11:51 Order name: Urine Dipstick--Ancillary (enter results); Complete Time: 12:18 10/28 11:51 Order name: Urine --Ancillary (enter results); Complete Time: 12:18 10/28 12:14 Order name: Urine Culture [facility] 10/28 11:07 Order name: Urine Test (obtain specimen); Complete Time: 11:55 [facility] 10/28 11:07 Order name: IV Saline Lock; Complete Time: 11:50 [facility] 10/28 11:07 Order name: Labs collected and sent; Complete Time: 11:50 [facility] 10/28 11:07 Order name: Urine Dipstick-Ancillary (obtain specimen); Complete Time: 11:55 [facility] 10/28 12:43 Order name: PO challenge; Complete Time: 13:35 jm Administered Medications: 11:53 Drug: Zofran 4 mg Route: IVP; Site: right antecubital; rb1 12:09 Follow up: Response: No adverse reaction; Nausea is decreased rb1 11:53 Drug: NS 0.9% 1000 ml Route: IV; Rate: 1 bolus; Site: right antecubital; rb1 13:08 Follow up: IV Status: Completed infusion rb1 12:04 Not Given (Patient Refused; Provider notified.): morphine 2 mg IVP once rb1 12:05 Drug: TORadol 30 mg Route: IVP; Site: right antecubital; rb1 12:30 Follow up: Response: No adverse reaction; Pain is decreased rb1 Disposition: 10/28/17 13:57 Discharged to Home. Impression: Vomiting, Diarrhea, unspecified, Unspecified ovarian cysts. - Condition is Stable. - Discharge Instructions: Food Choices to Help Relieve Diarrhea, Adult, Diarrhea, Nausea and Vomiting, Ovarian Cyst. - Prescriptions for Zofran ODT 4 mg Oral tablet,disintegrating - place 2 tablet by TRANSLINGUAL route every 4-6 hours; 30 tablet. Bentyl 20 mg Oral Tablet - take 2 tablet by ORAL route every 6 hours As needed; 40 tablet. - Medication Reconciliation Form, Thank You Letter, Antibiotic Education, Prescription Opioid Use, Work release form form. - Follow up: Private Physician; When: 1 - 2 days; Reason: Continuance of care. Addendum: 10/29/2017 21:28 Co-signature as Attending Physician, So Alicia MD. m a2 Signatures: Dispatcher [employer] EDAmanda Bowden RN RN aj1 Lalit Kasper PA PA jmm Barber, Rebecca, RN RN rb1 So Alicia MD MD ma2 Corrections: (The following items were deleted from the chart) 10/28 14:54 13:57 10/28/2017 13:57 Discharged to Home. Impression: Vomiting; Diarrhea, unspecified; rb1 Unspecified ovarian cysts. Condition is Stable. Forms are Medication Reconciliation Form, Thank You Letter, Antibiotic Education, Prescription Opioid Use. Follow up: Private Physician; When: 1 - 2 days; Reason: Continuance of care. kelly
== END 2017-10-28 14:54 | disposition home or self-care (01) ==
LOC: ER 10:39
DX: R19.7 Diarrhea, unspecified (principal); N83.209 Unspecified ovarian cyst, unspecified side; I10 Essential (primary) hypertension
CPT/HCPCS: 36415; 74177; 80048; 80076; 81003; 81015; 81025; 82150; 83690; 85025; 87086; 87088; 96361; 96374; 96375; 99284; J2405; J7030; Q9967

== ENCOUNTER 2017-12-02 16:01 | Emergency (ER) | payer SELFPAY ==
--- OUTSIDE RECORDS SUMMARY | 2017-12-02 16:02 | XMS REPORT | Clinical Summary ---
:1985 Author Organization [facility] Address [address] [place] [address] Phone Care Team Providers Name Role Phone Unavailable Primary Care Provider Unavailable Allergies Not on File Current Medications Not on file Active Problems Problem Noted Date Coffee ground emesis 08/18/2017 Acute blood loss anemia 08/18/2017 Overview: In anticipation for transfer to [facility] from [facility] to [place] on for acute blood loss anemia with [...] and hemodynamic instability. Already received 2units at [facility] in anticipation for transfer. Will need to perform serial CBCs q6hs and keep NPO with IV fluids. Garfield Worley MD PGY6 Gastroenterology and Hepatology Fellow [facility] Encounters Date Type Specialty Care Team Description 08/20/2017 Procedure Pass Gastroenterology 08/19/2017 Anesthesia Event Gastroenterology Crystal Tobias MD after 12/01/2016 Social History Tobacco Use Types Packs/Day Years Used Date Never Assessed Sex Assigned at Date Recorded Not on file Last Filed Vital Signs Not on file Plan of Treatment Not on file Results Not on fileafter 12/01/2016
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
== END 2017-12-02 17:04 | disposition left against medical advice (07) ==
LOC: ER 16:01
DX: Z53.21 Procedure and treatment not carried out due to patient leaving prior to being seen by health care provider (principal)
CPT/HCPCS: 99281

== ENCOUNTER 2017-12-26 23:30 | Emergency (ER) | payer SELFPAY ==
--- OUTSIDE RECORDS SUMMARY | 2017-12-26 23:32 | XMS REPORT | Clinical Summary ---
:1985 Author Organization [facility] Address [address] [place] [address] Phone Care Team Providers Name Role Phone Unavailable Primary Care Provider Unavailable Allergies Not on File Current Medications Not on file Active Problems Problem Noted Date Coffee ground emesis 08/18/2017 Acute blood loss anemia 08/18/2017 Overview: In anticipation for transfer to [facility] from [facility] to [place] on for acute blood loss anemia with [...] MD PGY6 Gastroenterology and Hepatology Fellow [facility] Encounters Date Type Specialty Care Team Description 08/20/2017 Procedure Pass Gastroenterology 08/19/2017 Anesthesia Event Gastroenterology Crystal Tobias MD after 12/25/2016 Social History Tobacco Use Types Packs/Day Years Used Date Never Assessed Sex Assigned at Date Recorded Not on file Last Filed Vital Signs Not on file Plan of Treatment Not on file Results Not on fileafter 12/25/2016
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
== END 2017-12-26 23:46 | disposition left against medical advice (07) ==
LOC: ER 23:30
DX: Z53.21 Procedure and treatment not carried out due to patient leaving prior to being seen by health care provider (principal)

== ENCOUNTER 2018-06-05 23:56 | Emergency (ER) | payer SELFPAY ==
--- OUTSIDE RECORDS SUMMARY | 2018-06-05 23:59 | XMS REPORT | Clinical Summary ---
:1985 Author Organization [facility] Address [address] [place] [address] Care Team Providers Name Role Phone Unavailable Primary Care Provider Unavailable Allergies Not on File Medications Not on file Active Problems Problem Noted Date Coffee ground emesis 08/18/2017 Acute blood loss anemia 08/18/2017 Overview: In anticipation for transfer to [facility] from [facility] to [place] on for acute blood loss anemia with [...] Worley MD PGY6 Gastroenterology and Hepatology Fellow [facility] Encounters Date Type Specialty Care Team Description 08/19/2017 Anesthesia Event Gastroenterology Crystal Tobias MD after 06/04/2017 Social History Tobacco Use Types Packs/Day Years Used Date Never Assessed Sex Assigned at Date Recorded Not on file Job Start Date Occupation Industry Not on file Not on file Not on file Travel History Travel Start Travel End No recent travel history available. Last Filed Vital Signs Not on file Plan of Treatment Not on file Results Not on fileafter 06/04/2017
[2018-06-06 00:53] LABS: Absolute Lymphocytes (CBC) 1.1 K/uL (0.7-4.9); Absolute Monocytes 0.3 K/uL (0.1-1.3); Absolute Neutrophil 3.4 K/uL (1.8-8.0); Basophils % 0.7 % (0-1.3); Hematocrit 23.7 % (36.0-45.0); Lymphocytes % 22.9 % (15.3-44.8); MPV 8.1 fL (7.6-11.3); Monocytes % 6.8 % (3.3-12.3); RBC Red Blood Cell Count 3.35 M/uL (3.86-4.86)
[2018-06-06 01:06] LABS: Albumin 3.9 g/dL (3.4-5.0); Bilirubin Direct 0.1 mg/dL (0-0.2); Bilirubin Total 0.4 mg/dL (0.2-1.0); Potassium 3.7 mmol/L (3.5-5.1); Protein, Total 7.3 g/dL (6.4-8.2)
[2018-06-06 02:02] LABS: Blood Morphology Comment NOTED (NOT SEEN); Hypochromasia 1+; Platelet Estimate ADEQ; Polychromasia 1+; Urine White Blood Cell Casts OK
--- NOTE | 2018-06-06 04:33 | ER ---
Nurse's Notes [facility] Name: Joyce Mera Age: 32 yrs Sex: Female : 1985 Arrival Date: 06/06/2018 Time: 00:08 Bed 20 Private MD: Diagnosis: Vaginitis, vulvitis and vulvovaginitis in diseases classified elsewhere Presentation: 06/06 00:17 Presenting complaint: Patient states: "I think I might have a kidney infection and jd3 recently I have started to have sever itching and pain down there in my groin region.". Transition of care: patient was not received from another setting of care. Onset of symptoms was June 06, 2018. Risk Assessment: Do you want to hurt yourself or someone else? Patient reports no desire to harm self or others. Initial Sepsis Screen: Does the patient meet any 2 criteria? No. Patient's initial sepsis screen is negative. Does the patient have a suspected source of infection? No. Patient's initial sepsis screen is negative. Care prior to arrival: None. 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 - Social history:: Smoking status: Patient/guardian denies using tobacco. - Ebola Screening: : Patient negative for fever greater than or equal to 101.5 degrees Fahrenheit, and additional compatible Ebola Virus Disease symptoms. - Family history:: not pertinent. - Hospitalizations: : No recent hospitalization is reported. Screenin:22 Abuse screen: Denies threats or abuse. Nutritional screening: No deficits noted. jd3 Tuberculosis screening: No symptoms or risk factors identified. Fall Risk Ambulatory Aid- None/Bed Rest/Nurse Assist (0 pts). Gait- Normal/Bed Rest/Wheelchair (0 pts) Mental Status- Oriented to own ability (0 pts). Total Parsons Fall Scale indicates No Risk (0-24 pts). Assessment: 00:20 General: Appears in no apparent distress. uncomfortable, Behavior is cooperative, jd3 appropriate for age, anxious. Pain: Complains of pain in groin Quality of pain is described as burning. Neuro: Level of Consciousness is awake, alert, obeys commands, Oriented to person, place, time, situation, Appropriate for age. Cardiovascular: Capillary refill < 3 seconds Patient's skin is warm and dry. Respiratory: Airway is patent Respiratory effort is even, unlabored, Respiratory pattern is regular, symmetrical. GI: No signs and/or symptoms were reported involving the gastrointestinal system. : Reports burning with urination, since 06/04/18 vaginal itching. EENT: No signs and/or symptoms were reported regarding the EENT system. Derm: Skin is intact, Skin is dry, Skin is normal, Skin temperature is warm. Musculoskeletal: Circulation, motion, and sensation intact. Range of motion: intact in all extremities. 01:30 Reassessment: Patient appears in no apparent distress at this time. No changes from rr5 previously documented assessment. Patient is alert, oriented x 3, equal unlabored respirations, skin warm/dry/pink. no complaints made. 02:48 Reassessment: Patient appears in no apparent distress at this time. Patient is alert, rr5 oriented x 3, equal unlabored respirations, skin warm/dry/pink. Patient denies pain at this time. Patient states feeling better. Patient states symptoms have improved. 03:35 Reassessment: Patient appears in no apparent distress at this time. Patient is alert, rr5 oriented x 3, equal unlabored respirations, skin warm/dry/pink. asleep comfortably on bed. 04:03 Reassessment: Patient appears in no apparent distress at this time. Patient is alert, rr5 oriented x 3, equal unlabored respirations, skin warm/dry/pink. no complaints made awaiting for CT scan report. 04:40 Reassessment: Patient appears in no apparent distress at this time. Patient is alert, rr5 oriented x 3, equal unlabored respirations, skin warm/dry/pink. discharge instruction given and explained without complaints made. Vital Signs: 00:19 BP 181 / 94; Pulse 90; Resp 16 S; Temp 98.1(O); Pulse Ox 100% on R/A; Weight 44.91 kg jd3 (R); Height 5 ft. 3 in. (160.02 cm) (R); Pain 5/10; 01:50 BP 162 / 94; Pulse 87; Resp 18; Pulse Ox 99% ; rr5 02:48 BP 148 / 84; Pulse 86; Resp 14; Pulse Ox 99% ; rr5 03:40 BP 146 / 75; Pulse 80; Resp 17; Pulse Ox 98% ; rr5 04:30 BP 155 / 71; Pulse 75; Resp 17; Pulse Ox 99% ; rr5 00:19 Body Mass Index 17.54 (44.91 kg, 160.02 cm) jd3 ED Course: 00:08 Patient arrived in ED. am2 00:10 Aman Frazier MD is Attending Physician. rn 00:17 Cornell Gonzalez RN is Primary Nurse. jd3 00:18 Triage completed. jd3 00:20 Arm band placed on. jd3 00:22 Patient has correct armband on for positive identification. Bed in low position. Call jd3 light in reach. Side rails up X 1. 00:40 Inserted saline lock: 20 gauge in right antecubital area, using aseptic technique. jd3 Blood collected. 01:44 CT completed. Patient tolerated procedure well. Patient moved to CT WALKED. Patient moved back from CT. 01:50 Pulse ox on. NIBP on. rr5 02:52 Stone Protocol In Process Unspecified. EDMS 04:41 No provider procedures requiring assistance completed. IV discontinued, intact, rr5 bleeding controlled, No redness/swelling at site. Pressure dressing applied. Administered Medications: 04:27 Drug: DiFLUcan 150 mg Route: PO; ea 04:40 Follow up: Response: Medication administered at discharge. rr5 Outcome: 04:33 Discharge ordered by . rn 04:41 Discharged to home ambulatory. rr5 04:41 Condition: stable 04:41 Discharge instructions given to patient, Instructed on discharge instructions, follow up and referral plans. no driving heavy equipment, Demonstrated understanding of instructions, follow-up care, medications, Prescriptions given X 2. 04:42 Patient left the ED. rr5 Signatures: Dispatcher [employer] EDWA Corey Noel Aman Frazier MD MD rn Moreno, Amanda am2 Antunez, Elena, RN RN ea Davies, Jonathon, REJI MENDOZA jAngel Balderas RN RN rr5
--- NOTE | 2018-06-06 04:34 | EDPHYS ---
Physician Documentation [facility] Name: Joyce Mera Age: 32 yrs Sex: Female : 1985 Arrival Date: 06/06/2018 Time: 00:08 Bed 20 Private MD: ED Physician Aman Frazier HPI: 06/06 00:23 This 32 yrs old Female presents to ER via Ambulatory with complaints of Back rn Pain. 00:23 The patient presents with pain that is acute, with no known mechanism of injury. The rn symptoms are located in the left mid back. Onset: The symptoms/episode began/occurred 1 week(s) ago. The pain radiates to the pelvis. Modifying factors: The patient symptoms are alleviated by nothing, the patient symptoms are aggravated by nothing. Severity of symptoms: At their worst the symptoms were mild, in the emergency department the symptoms are unchanged. The patient has not experienced similar symptoms in the past. Reports thinks started as Urine infection with left flank pain, radiates to groin, intermittent, now having vaginal itching without rash/lesions/discharge. NO abd pain. No fever/vomiting/diarrhea. NO hematuria. . 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 - Social history:: Smoking status: Patient/guardian denies using tobacco. - Ebola Screening: : Patient negative for fever greater than or equal to 101.5 degrees Fahrenheit, and additional compatible Ebola Virus Disease symptoms. - Family history:: not pertinent. - Hospitalizations: : No recent hospitalization is reported. ROS: 00:23 Constitutional: Negative for fever, chills, and weight loss, Eyes: Negative for injury, rn pain, redness, and discharge, Neck: Negative for injury, pain, and swelling, Cardiovascular: Negative for chest pain, palpitations, and edema, Respiratory: Negative for shortness of breath, cough, wheezing, and pleuritic chest pain, Abdomen/GI: Negative for abdominal pain, nausea, vomiting, diarrhea, and constipation, Back: Negative for injury : Negative for injury, bleeding, discharge MS/Extremity: Negative for injury and deformity, Skin: Negative for injury, rash, and discoloration, Neuro: Negative for headache, weakness, numbness, tingling, and seizure. Exam: 00:23 Constitutional: This is a well developed, well nourished patient who is awake, alert, rn and in no acute distress. Head/Face: Normocephalic, atraumatic. Abdomen/GI: soft, non-tender Back: No spinal tenderness. No costovertebral tenderness. Full range of motion. Skin: Warm, dry with normal turgor. Normal color with no rashes, no lesions, and no evidence of cellulitis. MS/ Extremity: Pulses equal, no cyanosis. Neurovascular intact. Full, normal range of motion. Equal circumference. Neuro: Awake and alert, GCS 15, oriented to person, place, time, and situation. Cranial nerves II-XII grossly intact. Motor strength 5/5 in all extremities. Sensory grossly intact. Cerebellar exam normal. Normal gait. Vital Signs: 00:19 BP 181 / 94; Pulse 90; Resp 16 S; Temp 98.1(O); Pulse Ox 100% on R/A; Weight 44.91 kg jd3 (R); Height 5 ft. 3 in. (160.02 cm) (R); Pain 5/10; 01:50 BP 162 / 94; Pulse 87; Resp 18; Pulse Ox 99% ; rr5 02:48 BP 148 / 84; Pulse 86; Resp 14; Pulse Ox 99% ; rr5 03:40 BP 146 / 75; Pulse 80; Resp 17; Pulse Ox 98% ; rr5 04:30 BP 155 / 71; Pulse 75; Resp 17; Pulse Ox 99% ; rr5 00:19 Body Mass Index 17.54 (44.91 kg, 160.02 cm) jd3 MDM: 00:10 Patient medically screened. rn 01:05 ED course: Hemoglobin low, patient reports chronic anemia, no current bleeding. rn Asymptomatic. . 03:15 ED course: long delay of care due to [employer] and [employer] not communicating, orders not rn crossing over. . 04:31 Differential diagnosis: Ureterolithiasis vaginitis, kidney stone, UTI. Data reviewed: rn vital signs, nurses notes, lab test result(s), radiologic studies, CT scan, and as a result, I will discharge patient. Counseling: I had a detailed discussion with the patient and/or guardian regarding: the historical points, exam findings, and any diagnostic results supporting the discharge/admit diagnosis, lab results, radiology results, the need for outpatient follow up, to return to the emergency department if symptoms worsen or persist or if there are any questions or concerns that arise at home. Special discussion: I discussed with the patient/guardian in detail that at this point there is no indication for admission to the hospital. It is understood, however, that if the symptoms persist or worsen the patient needs to return immediately for re-evaluation. ED course: Sleeping comfortably, will dc home with medication for vaginitis, ct stone protocol negative for acute finding.. 06/06 00:33 Order name: Urine Dipstick--Ancillary (enter results) oe 06/06 00:47 Order name: Basic Metabolic Panel; Complete Time: 01:23 EDIA 06/06 00:47 Order name: Liver (Hepatic) Function; Complete Time: 01:23 EDIA 06/06 00:47 Order name: Lipase; Complete Time: 01:23 EDIA 06/06 00:47 Order name: Test Serum, Qualitat; Complete Time: 01:23 EDMS 06/06 00:47 Order name: CBC with Automated Diff; Complete Time: 02:11 EDIA 06/06 00:55 Order name: CBC Smear Scan; Complete Time: 02:11 EDIA 06/06 01:56 Order name: XRAY Abdomen 1 View bb 06/06 00:14 Order name: Urine Dipstick-Ancillary (obtain specimen); Complete Time: 00:24 rn 06/06 00:15 Order name: Urine Test (obtain specimen); Complete Time: 00:24 rn 06/06 00:29 Order name: IV Start; Complete Time: 00:44 rn 06/06 00:29 Order name: Labs collected and sent; Complete Time: 00:44 rn 06/06 02:48 Order name: Stone Protocol EDMS Administered Medications: 04:27 Drug: DiFLUcan 150 mg Route: PO; ea 04:40 Follow up: Response: Medication administered at discharge. rr5 Disposition: 06/06/18 04:33 Discharged to Home. Impression: Vaginitis, vulvitis and vulvovaginitis in diseases classified elsewhere. - Condition is Stable. - Discharge Instructions: Vaginitis. - Prescriptions for Flagyl 500 mg Oral Tablet - take 1 tablet by ORAL route every 12 hours for 7 days; 14 tablet. Miconazole 7 2 % Vaginal Cream - insert 1 applicatorful by VAGINAL route At bedtime for 7 days; 45 gram. - Medication Reconciliation Form, Thank You Letter, Antibiotic Education, Prescription Opioid Use form. - Follow up: Private Physician; When: As needed; Reason: Recheck today's complaints, Re-evaluation by your physician. - Problem is new. - Symptoms have improved. Signatures: Dispatcher [employer] EDMS Aman Frazier MD MD rn Antunez, Elena RN Cornell Yeboah ea RN Angel Larsen RN RN rr5 Corrections: (The following items were deleted from the chart) 00:24 00:23 Constitutional: Negative for fever, chills, and weight loss, Eyes: Negative for rn injury, pain, redness, and discharge, Neck: Negative for injury, pain, and swelling, Cardiovascular: Negative for chest pain, palpitations, and edema, Respiratory: Negative for shortness of breath, cough, wheezing, and pleuritic chest pain, Abdomen/GI: Negative for abdominal pain, nausea, vomiting, diarrhea, and constipation, Back: Negative for injury : Negative for injury, bleeding, discharge, and swelling, MS/Extremity: Negative for injury and deformity, Skin: Negative for injury, rash, and discoloration, Neuro: Negative for headache, weakness, numbness, tingling, and seizure, rn 04:42 04:33 06/06/2018 04:33 Discharged to Home. Impression: Vaginitis, vulvitis and rr5 vulvovaginitis in diseases classified elsewhere. Condition is Stable. Discharge Instructions: Vaginitis. Prescriptions for Flagyl 500 mg Oral Tablet - take 1 tablet by ORAL route every 12 hours for 7 days; 14 tablet, Miconazole 7 2 % Vaginal Cream - insert 1 applicatorful by VAGINAL route At bedtime for 7 days; 45 gram. and Forms are Medication Reconciliation Form, Thank You Letter, Antibiotic Education, Prescription Opioid Use. Follow up: Private Physician; When: As needed; Reason: Recheck today's complaints, Re-evaluation by your physician. Problem is new. Symptoms have improved. rn
[2018-06-06] MEDS ORDERED: FLUCONAZOLE 100 MG TAB ONE (04:36)
[2018-06-06 07:30] LABS: Urine Blood TRACE (NEG); Urine Glucose NEGATIVE (NEG); Urine Protein NEGATIVE (NEG); Urine Specific Gravity <1.005 (1.005-1.030)
--- NOTE | 2018-06-06 15:12 | RAD REPORT ---
EXAM DESCRIPTION: CT abdomen and pelvis without IV contrast CLINICAL HISTORY: 32-year-old female with left mid back pain. COMPARISON: CT abdomen and pelvis with contrast performed on 10/28/2017. TECHNIQUE: Axial CT imaging of the abdomen and pelvis was performed. Sagittal and coronal reconstruc cliff images were then performed. The CT study is performed according to ALARA (as low as reasonably ac hievable) or ALARA/IMAGE GENTLY, with automatic adjustment of mA and/or kV according to patient size. FINDINGS: Lung bases: The lung bases are clear. There is minimal bibasilar atelectasis and/or fibros is. Liver: The liver is normal in size and configuration. No focal hepatic abnormalities are appreciated on this unenhanced scan. Liver attenuation is within normal limits. Spleen: The spleen is normal in size, configuration and attenuation. No focal splenic abnormalities a re appreciated on this unenhanced scan. Gallbladder and bile duct: The gallbladder is contracted. There is no bilary ductal dilatation. Pancreas: The pancreas is grossly normal in size and configuration. Adrenal Glands: The adrenal glands are normal in size and configuration. Kidneys: The kidneys are normal in size and configuration. There is no evidence of hydronephrosis. Th ere is no evidence of nephrolithiasis. No focal renal abnormalities are identified. Stomach: The stomach is grossly normal. There is no definite hiatal hernia. Bowel: The bowel gas pattern is non-specific and non obstructive. Appendix: The appendix is normal. Free air: There is no evidence of free air. Free fluid: There is no evidence of free fluid. Vasculature: The aorta is normal in caliber and contour. The inferior vena cava is grossly unremarkab le. Lymphadenopathy: No pathologic lymphadenopathy is identified. Bladder: The bladder is well distended and smooth in contour. Reproductive: The uterus is grossly within normal limits. Bones: No acute osseous abnormalities are identified. Soft tissues: There is a small fat-containing ventral umbilical hernia. IMPRESSION: 1. Normal unenhanced CT scan of the abdomen and pelvis. There is no evidence of urinary tract calcification or urinary tract obstruction. 2. The gallbladder is contracted. 3. Small fat-containing ventral umbilical hernia. 4. Otherwise, unremarkable unenhanced CT scan of the abdomen and pelvis. Electronically signed by Kelly Guerrier DO 06/06/2018 4:02 AM [employer] STATISTICAL PROGRAMMER Due to temporary technical issues with the PACS/Fluency reporting system, reports are being signed by the in house radiologist as a courtesy to ensure prompt reporting. The interpreting radiologist is f ully responsible for the content of the report.
== END 2018-06-06 04:42 | disposition home or self-care (01) ==
LOC: ER 23:56
DX: N77.1 Vaginitis, vulvitis and vulvovaginitis in diseases classified elsewhere (principal); I10 Essential (primary) hypertension
CPT/HCPCS: 36415; 74176; 76377; 80048; 80076; 81003; 83690; 84703; 85025; 99284

== ENCOUNTER 2018-07-16 00:26 | Emergency (ER) | payer SELFPAY ==
--- OUTSIDE RECORDS SUMMARY | 2018-07-16 00:28 | XMS REPORT | Clinical Summary ---
:1985 Author Organization [facility] Address [address] [place] [address] Care Team Providers Name Role Phone Unavailable Primary Care Provider Unavailable Allergies Not on File Medications Not on file Active Problems Problem Noted Date Coffee ground emesis 08/18/2017 Acute blood loss anemia 08/18/2017 Overview: In anticipation for transfer to [facility] from [facility] to [place] on for acute blood loss anemia with [...] and hemodynamic instability. Already received 2units at [facility] in anticipation for transfer. Will need to perform serial CBCs q6hs and keep NPO with IV fluids. Garfield Worley MD PGY6 Gastroenterology and Hepatology Fellow [facility] Encounters Date Type Specialty Care Team Description 08/19/2017 Anesthesia Event Gastroenterology Crystal Tobias MD after 07/15/2017 Social History Tobacco Use Types Packs/Day Years Used Date Never Assessed Sex Assigned at Date Recorded Not on file Job Start Date Occupation Industry Not on file Not on file Not on file Travel History Travel Start Travel End No recent travel history available. Last Filed Vital Signs Not on file Plan of Treatment Not on file Results Not on fileafter 07/15/2017
[2018-07-16 01:27] LABS: Absolute Lymphocytes (CBC) 1.2 K/uL (0.7-4.9); Absolute Monocytes 0.3 K/uL (0.1-1.3); Absolute Neutrophil 3.7 K/uL (1.8-8.0); Basophils % 1.3 % (0-1.3); Hematocrit 24.1 % (36.0-45.0); Lymphocytes % 22.4 % (15.3-44.8); MPV 8.5 fL (7.6-11.3); Monocytes % 5.5 % (3.3-12.3)
[2018-07-16 02:02] LABS: ALT/SGPT 26 U/L (12-78); AST/SGOT 34 U/L (15-37); Albumin 3.7 g/dL (3.4-5.0); Alkaline Phosphatase 78 U/L (45-117); BUN Blood Urea Nitrogen 12 mg/dL (7-18); Bicarbonate 25 mmol/L (21-32); Bilirubin Direct < 0.1 mg/dL (0-0.2); Bilirubin Total 0.3 mg/dL (0.2-1.0); Glucose Level 95 mg/dL (74-106); Lipase 104 U/L (73-393); Potassium 3.5 mmol/L (3.5-5.1); Protein, Total 7.3 g/dL (6.4-8.2); Sodium Level 142 mmol/L (136-145)
[2018-07-16 02:26] LABS: Anisocytosis 1+; Blood Morphology Comment NOTED (NOT SEEN); Hypochromasia 1+; Platelet Estimate ADEQ; Urine White Blood Cell Casts OK
[2018-07-16] MEDS ORDERED: HYDRALAZINE HCL 20 MG/ML VIAL ONE (02:31)
[2018-07-16] MEDS ORDERED: cloNIDine HCl 0.1 MG TAB ONE (03:21)
[2018-07-16] MEDS ORDERED: NA CHLORIDE 0.9% 250 ML ONE (03:22)
--- NOTE | 2018-07-16 07:26 | ER ---
Nurse's Notes [facility] Name: Joyce Mera Age: 32 yrs Sex: Female : 1985 Arrival Date: 07/16/2018 Time: 00:29 Bed 2 Private MD: Diagnosis: anemia Presentation: 07/16 00:45 Presenting complaint: Patient states: she has been feeling weak for several days and bb currently is having a heavy menstrual cycle pt states she is anemic with high blood pressure but does not take any medication pt states she has had to have a blood transfusion in the past. Transition of care: patient was not received from another setting of care. Onset of symptoms was July 13, 2018. Risk Assessment: Do you want to hurt yourself or someone else? Patient reports no desire to harm self or others. Initial Sepsis Screen: Does the patient meet any 2 criteria? No. Patient's initial sepsis screen is negative. Does the patient have a suspected source of infection? No. Patient's initial sepsis screen is negative. Care prior to arrival: None. 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 - Social history:: Smoking status: Patient/guardian denies using tobacco, Patient/guardian denies using alcohol, street drugs. - Ebola Screening: : No symptoms or risks identified at this time. Screenin:17 Abuse screen: Denies threats or abuse. Denies injuries from another. Nutritional lp1 screening: No deficits noted. Tuberculosis screening: No symptoms or risk factors identified. Fall Risk None identified. Assessment: 00:51 General: Appears in no apparent distress. Behavior is calm, cooperative, appropriate lp1 for age. Pain: Denies pain. Neuro: Level of Consciousness is awake, alert, obeys commands, Oriented to person, place, time, situation, Reports dizziness. Cardiovascular: Patient's skin is warm and dry. Respiratory: Respiratory effort is even, unlabored. GI: No signs and/or symptoms were reported involving the gastrointestinal system. : No signs and/or symptoms were reported regarding the genitourinary system. EENT: No signs and/or symptoms were reported regarding the EENT system. Derm: Skin is intact, Skin is dry, Skin is pale. Musculoskeletal: Circulation, motion, and sensation intact. 02:00 Reassessment: Provider at bedside to discuss results and plan of care with patient; lp1 demonstrates understanding. 03:00 Reassessment: Patient appears in no apparent distress at this time. Patient and/or lp1 family updated on plan of care and expected duration. Pain level reassessed. Patient aware of pending blood transfusion. 04:00 Reassessment: Patient appears in no apparent distress at this time. Transfusion of 1st lp1 PRBC unit at this time; Patient tolerating well; Significant other at bedside. 05:10 Reassessment: Patient appears in no apparent distress at this time. Assisted patient to lp1 bathroom Patient states feeling better. 06:02 Reassessment: Patient appears to have color improvement, pink in color; 2nd unit of lp1 PRBC transfusing Patient states feeling better. 06:50 Reassessment: 2nd Unit of PRBC completed at this time; Patient aware of post 4 hour H/H.lp1 07:20 Reassessment: Patient appears in no apparent distress at this time. Patient and/or sv family updated on plan of care and expected duration. Pain level reassessed. Pt noted to ambulate to the bathroom. 08:37 Reassessment: Pt noted to not be in the room. Left before getting her redraw of her sv blood work. Vital Signs: 00:47 BP 176 / 103; Pulse 78; Resp 16 S; Temp 98.6(O); Pulse Ox 98% on R/A; Weight 88.45 kg bb (R); Height 5 ft. 3 in. (160.02 cm) (R); Pain 6/10; 01:00 BP 169 / 107; Pulse 72; Resp 18; Pulse Ox 100% on R/A; lp1 01:30 BP 173 / 106; Pulse 77; Resp 18; Pulse Ox 100% on R/A; lp1 02:00 BP 177 / 97; Pulse 80; Resp 16; Pulse Ox 100% on R/A; lp1 02:30 BP 163 / 96; Pulse 81; Resp 18; Pulse Ox 100% on R/A; lp1 03:22 BP 159 / 92; Pulse 83; Resp 18; Temp 98.3(O); Pulse Ox 100% on R/A; lp1 03:30 lp1 03:37 BP 155 / 88; Pulse 88; Resp 16; Pulse Ox 100% on R/A; ao 05:15 BP 137 / 84; Pulse 76; Resp 18; Temp 98.4(TE); Pulse Ox 100% on R/A; lp1 05:40 lp1 06:51 BP 148 / 94; Pulse 85; Resp 18; Temp 97.7(TE); Pulse Ox 100% on R/A; lp1 00:47 Body Mass Index 34.54 (88.45 kg, 160.02 cm) bb 03:30 1st Unit of PRBC began at this time; See Transfusion flowsheet for further vitals lp1 05:40 2nd unit of PRBC began at this time; See Transfusion sheet for further vitals lp1 ED Course: 00:29 Patient arrived in ED. es 00:46 Triage completed. bb 00:47 Arm band placed on Patient placed in an exam room, on a stretcher, on pulse oximetry. bb Family accompanied patient. 00:50 Evan Ramirez MD is Attending Physician. tw4 00:51 Maritza Hardin, REJI is Primary Nurse. lp1 01:00 Patient has correct armband on for positive identification. lp1 01:17 Initial lab(s) drawn, by me, sent to lab. Missed attempt(s): 20 gauge in right lp1 antecubital area. 01:35 Notified ED physician of a critical lab result(s). HGB of 7.0. Dr Ramirez notified. bb 02:15 Inserted saline lock: 22 gauge in right antecubital area, using aseptic technique. lp1 02:15 T\T\S collected, blood band applied to patient. lp1 02:26 No provider procedures requiring assistance completed. lp1 02:30 Consent for blood and/or blood product transfusion explained by staff, explained by lp1 physician, signed by patient. 06:56 IV discontinued, No redness/swelling at site. Pressure dressing applied. lp1 07:05 Basic Metabolic Panel Sent. sv 07:05 CBC with Diff Sent. sv 07:05 Creatinine for Radiology Sent. sv Administered Medications: 02:25 Drug: hydrALAZINE 10 mg Route: IV; Rate: per protocol; Site: right antecubital; lp1 03:18 Drug: hydrALAZINE 10 mg Route: IV; Rate: per protocol; Site: right antecubital; lp1 03:45 Follow up: Response: Blood pressure is lowered; IV Status: Completed infusion lp1 03:18 Drug: cloNIDine 0.1 mg Route: PO; lp1 04:00 Follow up: Response: Blood pressure is lowered lp1 Intake: 05:15 IV: 312ml (Blood Products); Total: 312ml. lp1 Outcome: 07:26 Discharge ordered by tw4 08:37 Eloped from patient exam room, after seeing physician Time discovered patient gone: sv July 16, 2018 at 08:38 08:38 Patient left the ED. Signatures: Mine Montes RN Maureen Potter Brenda, RN RN bb Pena, Laura, RN RN lp1 Beau Akbar RN RN ao Wadley, Terrence, MD MD tw4 Corrections: (The following items were deleted from the chart) 01:20 01:20 BP 169 / 107; Pulse 72bpm; Resp 18bpm; Pulse Ox 100% RA; lp1 lp1
--- NOTE | 2018-07-16 07:26 | EDPHYS ---
Physician Documentation [facility] Name: Joyce Mera Age: 32 yrs Sex: Female : 1985 Arrival Date: 07/16/2018 Time: 00:29 Bed 2 Private MD: ED Physician Evan Ramirez HPI: 07/17 07:15 This 32 yrs old Female presents to ER via Ambulatory with complaints of tw4 Dizziness. 07:15 The patient presents with dizziness. Onset: The symptoms/episode began/occurred today. tw4 Context: occurred at a bar or nightclub, at daycare, at home. Modifying factors: The symptoms are alleviated by nothing, the symptoms are aggravated by nothing. Associated signs and symptoms: The patient has no apparent associated signs or symptoms. Severity of symptoms: At their worst the symptoms were in the emergency department the symptoms. The patient has not experienced similar symptoms in the past. 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 - Social history:: Smoking status: Patient/guardian denies using tobacco, Patient/guardian denies using alcohol, street drugs. - Ebola Screening: : No symptoms or risks identified at this time. ROS: 07/17 07:15 Constitutional: Negative for fever, chills, and weight loss, Eyes: Negative for injury, tw4 pain, redness, and discharge, Cardiovascular: Negative for chest pain, palpitations, and edema, Respiratory: Negative for shortness of breath, cough, wheezing, and pleuritic chest pain, Abdomen/GI: Negative for abdominal pain, nausea, vomiting, diarrhea, and constipation, Back: Negative for injury and pain, MS/Extremity: Negative for injury and deformity. Exam: 07:15 Constitutional: This is a well developed, well nourished patient who is awake, alert, tw4 and in no acute distress. Head/Face: Normocephalic, atraumatic. Chest/axilla: Normal chest wall appearance and motion. Nontender with no deformity. No lesions are appreciated. Cardiovascular: Regular rate and rhythm with a normal S1 and S2. No gallops, murmurs, or rubs. Normal PMI, no JVD. No pulse deficits. Respiratory: Lungs have equal breath sounds bilaterally, clear to auscultation and percussion. No rales, rhonchi or wheezes noted. No increased work of breathing, no retractions or nasal flaring. Abdomen/GI: Soft, non-tender, with normal bowel sounds. No distension or tympany. No guarding or rebound. No evidence of tenderness throughout. Back: No spinal tenderness. No costovertebral tenderness. Full range of motion. MS/ Extremity: Pulses equal, no cyanosis. Neurovascular intact. Full, normal range of motion. Neuro: Awake and alert, GCS 15, oriented to person, place, time, and situation. Cranial nerves II-XII grossly intact. Motor strength 5/5 in all extremities. Sensory grossly intact. Cerebellar exam normal. Normal gait. Vital Signs: 07/16 00:47 BP 176 / 103; Pulse 78; Resp 16 S; Temp 98.6(O); Pulse Ox 98% on R/A; Weight 88.45 kg bb (R); Height 5 ft. 3 in. (160.02 cm) (R); Pain 6/10; 01:00 BP 169 / 107; Pulse 72; Resp 18; Pulse Ox 100% on R/A; lp1 01:30 BP 173 / 106; Pulse 77; Resp 18; Pulse Ox 100% on R/A; lp1 02:00 BP 177 / 97; Pulse 80; Resp 16; Pulse Ox 100% on R/A; lp1 02:30 BP 163 / 96; Pulse 81; Resp 18; Pulse Ox 100% on R/A; lp1 03:22 BP 159 / 92; Pulse 83; Resp 18; Temp 98.3(O); Pulse Ox 100% on R/A; lp1 03:30 lp1 03:37 BP 155 / 88; Pulse 88; Resp 16; Pulse Ox 100% on R/A; ao 05:15 BP 137 / 84; Pulse 76; Resp 18; Temp 98.4(TE); Pulse Ox 100% on R/A; lp1 05:40 lp1 06:51 BP 148 / 94; Pulse 85; Resp 18; Temp 97.7(TE); Pulse Ox 100% on R/A; lp1 00:47 Body Mass Index 34.54 (88.45 kg, 160.02 cm) bb 03:30 1st Unit of PRBC began at this time; See Transfusion flowsheet for further vitals lp1 05:40 2nd unit of PRBC began at this time; See Transfusion sheet for further vitals lp1 MDM: 00:51 Patient medically screened. tw4 07/17 07:15 Differential diagnosis: cardiac arrhythmia, CVA, generalized weakness. Data reviewed: tw4 vital signs, nurses notes, EMS record. Counseling: I had a detailed discussion with the patient and/or guardian regarding: the historical points, exam findings, and any diagnostic results supporting the discharge/admit diagnosis. 07:17 Special discussion: I discussed with the patient/guardian in detail that at this point tw4 there is no indication for admission to the hospital. It is understood, however, that if the symptoms persist or worsen the patient needs to return immediately for re-evaluation. ED course: pt received 2 U PRBCs in the Ed pt tolerated transfusions well . 07/16 00:57 Order name: Basic Metabolic Panel tw4 07/16 00:57 Order name: CBC with Diff tw4 07/16 00:57 Order name: Creatinine for Radiology tw4 07/16 00:57 Order name: Hepatic Function tw4 07/16 00:57 Order name: Lipase tw 07/16 00:59 Order name: Basic Metabolic Panel EDWA 07/16 00:59 Order name: CBC with Automated Diff EDWA 07/16 00:59 Order name: Creatinine (Radiology Only) EDWA 07/16 02:07 Order name: Type And Screen lp1 07/16 02:12 Order name: Packed RBC Leukored -1 EDWA 07/16 02:26 Order name: CBC Smear Scan EDWA 07/16 00:57 Order name: IV Saline Lock; Complete Time: 02:38 tw4 07/16 00:57 Order name: Labs collected and sent; Complete Time: 01:17 tw4 Administered Medications: 07/16 02:25 Drug: hydrALAZINE 10 mg Route: IV; Rate: per protocol; Site: right antecubital; lp1 03:18 Drug: hydrALAZINE 10 mg Route: IV; Rate: per protocol; Site: right antecubital; lp1 03:45 Follow up: Response: Blood pressure is lowered; IV Status: Completed infusion lp1 03:18 Drug: cloNIDine 0.1 mg Route: PO; lp1 04:00 Follow up: Response: Blood pressure is lowered lp1 Disposition: 07/16/18 07:26 Discharged to Home. Impression: anemia. - Condition is Stable. - Discharge Instructions: Anemia, Nonspecific. - Medication Reconciliation Form, Thank You Letter, Antibiotic Education, Prescription Opioid Use form. - Follow up: Private Physician; When: Upon discharge from the Emergency Department; Reason: If symptoms return, Recheck today's complaints, Continuance of care. - Problem is new. - Symptoms have improved. Signatures: Dispatcher [employer] [facility] Mine Montes RN RN sv Kamilah Melendez RN RN bb Maritza Hardin RN RN lp1 Evan Ramirez MD MD tw4 Corrections: (The following items were deleted from the chart) 07:08 07:07 CBC without Diff ordered. [facility] 08:38 07:26 07/16/2018 07:26 Discharged to Home. Impression: anemia. Condition is Stable. sv Forms are Medication Reconciliation Form, Thank You Letter, Antibiotic Education, Prescription Opioid Use. Follow up: Private Physician; When: Upon discharge from the Emergency Department; Reason: If symptoms return, Recheck today's complaints, Continuance of care. Problem is new. Symptoms have improved. tw4
== END 2018-07-16 08:38 | disposition home or self-care (01) ==
LOC: ER 00:26
PROC: 30233N1 Transfusion of Nonautologous Red Blood Cells into Peripheral Vein, Percutaneous Approach (ICD-10-PCS; principal; 2018-07-16)
DX: D64.9 Anemia, unspecified (principal); I10 Essential (primary) hypertension
CPT/HCPCS: 36415; 80048; 80076; 83690; 85025; 86850; 86900; 86901; 96365; 99284; J0360; P9016

== ENCOUNTER 2018-10-07 15:31 | Emergency (ER) | payer SELFPAY ==
--- OUTSIDE RECORDS SUMMARY | 2018-10-07 15:33 | XMS REPORT | Clinical Summary ---
:1985 Author Organization [facility] Address [address] [place] [address] Care Team Providers Name Role Phone Unavailable Primary Care Provider Unavailable Allergies Not on File Medications Not on file Active Problems Problem Noted Date Coffee ground emesis 08/18/2017 Acute blood loss anemia 08/18/2017 Overview: In anticipation for transfer to [facility] from [facility] to [facility] on for acute blood loss anemia with [...] Worley MD PGY6 Gastroenterology and Hepatology Fellow [facility] Social History Tobacco Use Types Packs/Day Years Used Date Never Assessed Sex Assigned at Date Recorded Not on file Job Start Date Occupation Industry Not on file Not on file Not on file Travel History Travel Start Travel End No recent travel history available. Last Filed Vital Signs Not on file Plan of Treatment Not on file Results Not on fileafter 10/06/2017
[2018-10-07] MEDS ORDERED: KETOROLAC 30 MG/ML INJ ONE (16:12)
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
== END 2018-10-07 17:03 | disposition home or self-care (01) ==
LOC: ER 15:31
DX: M25.512 Pain in left shoulder (principal); I10 Essential (primary) hypertension; D64.9 Anemia, unspecified
CPT/HCPCS: 96372; 99284

== ENCOUNTER 2019-06-12 13:30 | Emergency (ER) | payer SELFPAY ==
--- OUTSIDE RECORDS SUMMARY | 2019-06-12 13:32 | XMS REPORT ---
:1985 [facility] Address [address] [place] [address] Dr. Murdock [address] [place] [id number] Care Team Providers Name Role Phone Unavailable Unavailable Unavailable Problems This patient has no known problems. Allergies, Adverse Reactions, Alerts This patient has no known allergies or adverse reactions. Medications This patient has no known medications.
--- OUTSIDE RECORDS SUMMARY | 2019-06-12 13:32 | XMS REPORT | Summary of Care ---
:1985 Author Organization [facility] Address [address] [place] [id number] Care Team Providers Name Role Phone Pcp, Patient Does Not Have A Primary Care Provider Reason for Visit Reason Comments Vaginal Problem Auth/Cert Status Reason Specialty Diagnoses / Referred By Referred To Procedures Contact Contact [facility] [address] [place] [address] [place] [address] Encounter Details Date Type Department Care Team Description 12/30/2018 Emergency [facility] Department MyersMyrna R, Dysuria (Primary Dx) [address] [place] [address] [place] [address] [address] [facility] [id number] [place], [place] [id number] Allergies No Known Allergiesdocumented as of this encounter (statuses as of 12/30/2018) Medications Medication Sig Dispensed Refills Start Date End Date Status traMADOL (ULTRAM) 50 Take 1 tablet by 20 tablet 0 07/29/2016 Active mg tablet mouth every 6 (six) hours as needed for Pain (scale 7-10). documented as of this encounter (statuses as of 12/30/2018) Active Problems No known active problemsdocumented as of this encounter (statuses as of 2018) Social History Tobacco Use Types Packs/Day Years Used Date Never Smoker Sex Assigned at Date Recorded Not on file Job Start Date Occupation Industry Not on file Not on file Not on file Travel History Travel Start Travel End No recent travel history available. documented as of this encounter Last Filed Vital Signs Vital Sign Reading Time Taken Comments Blood Pressure 165/107 12/30/2018 2:59 PM CDT Pulse 85 12/30/2018 2:59 PM CDT Temperature 37 C (98.6 F) 12/30/2018 2:59 PM CDT Respiratory Rate 16 12/30/2018 2:59 PM CDT Oxygen Saturation 100% 12/30/2018 2:59 PM CDT Inhaled Oxygen Concentration - - Weight 86.2 kg (190 lb) 12/30/2018 2:59 PM CDT Height - - Body Mass Index 32.61 07/29/2016 1:05 AM CDT documented in this encounter Plan of Treatment Health Maintenance Due Date Last Done Comments VARICELLA VACCINES (1 of 2 - 11/18/1999 13+ 2-dose series) DTaP,Tdap,and Td Vaccines (1 2005 - Tdap) PAP SMEAR 12/18/2011 12/17/2008, 02/28/2005 INFLUENZA VACCINE (Retired 12/15/2018 version) PNEUMOCOCCAL 0-64 YEARS Aged Out No longer eligible based COMBINED SERIES on patient's age to complete this topic documented as of this encounter Procedures Procedure Name Priority Date/Time Associated Comments Diagnosis POCT TEST TANVIR 12/30/2018 4:08 PM Dysuria Results for this CDT procedure are in the results section. URINALYSIS STAT 12/30/2018 4:08 PM Dysuria Results for this CDT procedure are in the results section. NOTICE OF PRIVACY Routine 12/30/2018 2:33 PM PRACTICES CDT documented in this encounter Results POCT TEST (12/30/2018 4:08 PM CDT) POCT PREG negative On board controls acceptable present with C Line POCT PREG LOT # [id number] POCT PREG TEST DATE 04-15-2020 Specimen Urine - URINE, CLEAN CATCH URINALYSIS (12/30/2018 4:08 PM CDT) APPEARANCE Clear Clear [facility] COLOR Straw (A) Yellow [facility] PH 6.0 4.8 - 8.0 [facility] SP GRAVITY 1.011 1.003 - 1.030 [facility] GLU U QUAL Normal Normal [facility] BLOOD Negative Negative [facility] KETONES Negative Negative [facility] PROTEIN Negative Negative [facility] UROBILIN Normal Normal [facility] BILIRUBIN Negative Negative [facility] NITRITE Negative Negative [facility] LEUK RANJANA 25/uL (A) Negative [facility] RBC/HPF 3 0 - 3 HPF [facility] WBC/HPF 1 0 - 5 HPF [facility] BACTERIA Negative Negative [facility] SQ EPITH 6 HPF [facility] Specimen Urine - URINE, CLEAN CATCH Performing Organization Address City/State/Zipcode Phone Number [facility] CLIA: [id number], [address] [place] [address] documented in this encounter Visit Diagnoses Diagnosis Dysuria - Primary documented in this encounter
[2019-06-12] MEDS ORDERED: IBUPROFEN 400 MG TAB ONE (14:01)
[2019-06-12] MEDS ORDERED: IBUPROFEN 200 MG TAB PO ONE (14:01)
[2019-06-12] MEDS ORDERED: dexAMETHasone 4 MG/ML VIAL ONE (14:02)
[2019-06-12 14:51] LABS: Absolute Lymphocytes (CBC) 0.3 K/uL (0.7-4.9); Basophils % 0.9 % (0-1.3); Hematocrit 20.6 % (36.0-45.0); Lymphocytes % 9.5 % (15.3-44.8); MPV 8.7 fL (7.6-11.3); RBC Red Blood Cell Count 3.21 M/uL (3.86-4.86)
[2019-06-12 15:03] LABS: ALT/SGPT 19 U/L (12-78); AST/SGOT 14 U/L (15-37); Albumin 3.6 g/dL (3.4-5.0); Alkaline Phosphatase 84 U/L (45-117); BUN Blood Urea Nitrogen 13 mg/dL (7-18); Bicarbonate 26 mmol/L (21-32); Bilirubin Total 0.6 mg/dL (0.2-1.0); Glucose Level 92 mg/dL (74-106); Potassium 3.5 mmol/L (3.5-5.1); Sodium Level 141 mmol/L (136-145)
[2019-06-12 15:22] LABS: Blood Morphology Comment NOTED (NOT SEEN); Hypochromasia 2+; Platelet Estimate ADEQ; White Blood Cell Scan OK
[2019-06-12] MEDS ORDERED: NA CHLORIDE 0.9% 250 ML ONE ×2 (15:29→19:27)
[2019-06-12 15:32] LABS: Urine Blood NEGATIVE (NEG); Urine Glucose NEGATIVE (NEG); Urine Protein NEGATIVE (NEG); Urine pH 5.5 (5.0-7.0)
[2019-06-12 15:50] LABS: Ferritin 1.6 ng/mL (8-388)
--- NOTE | 2019-06-12 18:09 | EDPHYS ---
Physician Documentation [facility] Name: Joyce Mera Age: 33 yrs Sex: Female : 1985 Arrival Date: 06/12/2019 Time: 13:35 Bed 19 Private MD: ED Physician Domingo Espino HPI: 06/12 13:54 This 33 yrs old Female presents to ER via Ambulatory with complaints of High ps1 Blood Pressure. 13:54 patient has had flu like symptoms for 2 days. Hx of significant anemia requiring ps1 transfusion. States that she has had BERRY, sore throat, body aches, chills. Took Tylenol Cold and Flu. States that she has had hx of gestational hypertension (not currently ) checked her BP today and elevated. . Historical: - Allergies: 13:43 No Known Allergies; ll1 - PMHx: 13:43 Anemia; Hypertension; ll1 - PSHx: 13:43 ; ll1 - Immunization history:: Adult Immunizations up to date. - Social history:: Patient/guardian denies using alcohol, street drugs, tobacco products, Smoking status: Patient denies any tobacco usage or history of. ROS: 15:22 Eyes: Negative for injury, pain, redness, and discharge, Neck: Negative for injury, ps1 pain, and swelling, Cardiovascular: Negative for chest pain, palpitations, and edema, Abdomen/GI: Negative for abdominal pain, nausea, vomiting, diarrhea, and constipation, MS/Extremity: Negative for injury and deformity, Neuro: Negative for headache, weakness, numbness, tingling, and seizure. 15:22 Constitutional: Positive for body aches, fatigue, malaise. 15:22 ENT: Positive for sore throat. 15:22 Respiratory: Positive for cough. 15:22 Skin: Positive for pallor. Exam: 15:22 Constitutional: This is a well developed, well nourished patient who is awake, alert, ps1 and in no acute distress. Head/Face: Normocephalic, atraumatic. Eyes: Pupils equal round and reactive to light, extra-ocular motions intact. Lids and lashes normal. Conjunctiva and sclera are non-icteric and not injected. Chest/axilla: Normal chest wall appearance and motion. Nontender with no deformity. No lesions are appreciated. Cardiovascular: Regular rate and rhythm. No gallops, murmurs, or rubs. Normal PMI, no JVD. No pulse deficits. Respiratory: Lungs have equal breath sounds bilaterally, clear to auscultation and percussion. No rales, rhonchi or wheezes noted. No increased work of breathing, no retractions or nasal flaring. Abdomen/GI: Soft, non-tender, with normal bowel sounds. No distension or tympany. No guarding or rebound. No evidence of tenderness throughout. MS/ Extremity: Pulses equal, no cyanosis. Neurovascular intact. Full, normal range of motion. Neuro: Awake and alert, GCS 15, oriented to person, place, time, and situation. Cranial nerves II-XII grossly intact. Sensory grossly intact. Psych: Awake, alert, with orientation to person, place and time. Behavior, mood, and affect are within normal limits. 15:22 Skin: Appearance: pallor. Vital Signs: 13:40 BP 155 / 103; Pulse 86; Resp 18; Temp 98.7; Pulse Ox 98% ; Weight 88.45 kg; Height 5 ll1 ft. 3 in. (160.02 cm); Pain 7/10; 14:20 BP 159 / 107; Pulse 74; Resp 18; Pulse Ox 97% on R/A; Pain 7/10; em 14:31 BP 163 / 97; Pulse 72; Resp 17; Pulse Ox 98% on R/A; mh5 15:00 BP 167 / 95; Pulse 73; Resp 20; Pulse Ox 99% on R/A; em 16:25 BP 165 / 97; Pulse 82; Resp 18; Temp 98.2(TE); Pulse Ox 97% on R/A; Pain 4/10; em 16:30 em 19:30 BP 168 / 96; Pulse 84; Resp 18; Pulse Ox 99% on R/A; wh 20:30 BP 168 / 87; Pulse 79; Resp 16; Pulse Ox 98% on R/A; wh 21:30 BP 178 / 93; Pulse 84; Resp 18; Pulse Ox 99% on R/A; wh 22:30 BP 172 / 94; Pulse 86; Resp 16; Pulse Ox 99% on R/A; wh 13:40 Body Mass Index 34.54 (88.45 kg, 160.02 cm) ll1 16:30 please see transfusion flow sheet for VS em MDM: 13:53 Patient medically screened. ps1 18:10 Differential diagnosis: Elevated Blood Pressure, Acute anemia, DUB, Viral syndrome, and ps1 others. Data reviewed: vital signs, nurses notes, lab test result(s), and as a result, I will discharge patient. Counseling: I had a detailed discussion with the patient and/or guardian regarding: the historical points, exam findings, and any diagnostic results supporting the discharge/admit diagnosis, the presence of at least one elevated blood pressure reading (>120/80) during this emergency department visit, lab results, the need for outpatient follow up, a family practitioner, an OB/Gyne specialist, to return to the emergency department if symptoms worsen or persist or if there are any questions or concerns that arise at home. 06/12 13:53 Order name: Flu; Complete Time: 14:41 ps1 06/12 14:01 Order name: CBC with Diff; Complete Time: 15:25 ps1 06/12 15:04 Interpretation: Abnormal: HGB 5.8; MCV 64.1; HCT 20.6. [facility] 06/12 14:01 Order name: CMP; Complete Time: 15:05 [facility] 06/12 15:05 Interpretation: Abnormal. [facility] 06/12 14:12 Order name: Urine Dipstick--Ancillary (enter results); Complete Time: 15:37 eb 06/12 14:12 Order name: Urine --Ancillary (enter results); Complete Time: 15:37 eb 06/12 15:04 Order name: Iron Level; Complete Time: 15:59 [facility] 06/12 15:04 Order name: TIBC; Complete Time: 15:59 [facility] 06/12 15:05 Order name: Type And Screen ps1 06/12 15:15 Order name: Bb Add On eb 06/12 15:19 Order name: Packed RBC Leukored EDAR 06/12 15:22 Order name: CBC Smear Scan; Complete Time: 15:25 [facility] 06/12 13:53 Order name: Urine Dipstick-Ancillary (obtain specimen); Complete Time: 14:08 [facility] 06/12 13:53 Order name: Urine Test (obtain specimen); Complete Time: 14:08 [facility] 06/12 15:12 Order name: Transfuse; Complete Time: 16:59 ps1 Administered Medications: 13:58 Drug: Decadron - Dexamethasone 10 mg {Note: given PO in ice water.} Route: IVP; Site: em Other; 15:00 Follow up: Response: No adverse reaction em 13:58 Drug: Motrin 600 mg Route: PO; em 15:00 Follow up: Response: No adverse reaction em 19:15 Drug: Tylenol 650 mg Route: PO; sg 22:58 Follow up: Response: No adverse reaction 21:56 Drug: TORadol - Ketorolac 15 mg Route: IVP; Site: right antecubital; 22:58 Follow up: Response: No adverse reaction; Pain is decreased Disposition: 06/12/19 18:08 Discharged to Home. Impression: Iron deficiency anemia. - Condition is Stable. - Discharge Instructions: How to Take Your Blood Pressure, [id number], Iron Deficiency Anemia, Adult, [id number]. - Prescriptions for Ferrous Sulfate 325 mg (65 mg Iron) Oral Tablet - take 1 tablet by ORAL route every 8 hours; 90 tablet. - Medication Reconciliation Form, Thank You Letter, Antibiotic Education, Prescription Opioid Use form. - Follow up: Emergency Department; When: As needed; Reason: Worsening of condition. Follow up: Private Physician; When: As needed; Reason: Further diagnostic work-up, Recheck today's complaints, Continuance of care, Re-evaluation by your physician. - Problem is chronic. - Symptoms have improved. Signatures: Dispatcher [employer] Bobby Espinal RN REJI Oneal Trujillo RN RN Meño Pan PA PA [id number] Richard Castaneda Domingo Espino MD MD ps1 Gurwinder Hercules RN RN ll1 Corrections: (The following items were deleted from the chart) 15:04 15:04 HGB 5.8; MCV 64.1; HCT 20.6. ps1 ps1 23:02 18:08 06/12/2019 18:08 Discharged to Home. Impression: Iron deficiency anemia. Condition is Stable. Forms are Medication Reconciliation Form, Thank You Letter, Antibiotic Education, Prescription Opioid Use. Follow up: Emergency Department; When: As needed; Reason: Worsening of condition. Follow up: Private Physician; When: As needed; Reason: Further diagnostic work-up, Recheck today's complaints, Continuance of care, Re-evaluation by your physician. Problem is chronic. Symptoms have improved. ps1
--- NOTE | 2019-06-12 18:09 | ER ---
Nurse's Notes [facility] Name: Joyce Mera Age: 33 yrs Sex: Female : 1985 Arrival Date: 06/12/2019 Time: 13:35 Bed 19 Private MD: Diagnosis: Iron deficiency anemia Presentation: 06/12 13:40 Chief complaint: Patient states: Body aches, sweaty, nasal congestion, cough for 2 ll1 days. No N/V/D. 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 Proceed with normal triage procedures. Ebola Screen: No symptoms or risks identified at this time. Initial Sepsis Screen: Does the patient meet any 2 criteria? No. Patient's initial sepsis screen is negative. Does the patient have a suspected source of infection? No. Patient's initial sepsis screen is negative. Risk Assessment: Do you want to hurt yourself or someone else? Patient reports no desire to harm self or others. 13:40 Method Of Arrival: Ambulatory ll1 16:07 Acuity: ALICIA 3 em 19:15 Onset of symptoms was June 12, 2019. wh Historical: - Allergies: 13:43 No Known Allergies; ll1 - PMHx: 13:43 Anemia; Hypertension; ll1 - PSHx: 13:43 ; ll1 - Immunization history:: Adult Immunizations up to date. - Social history:: Patient/guardian denies using alcohol, street drugs, tobacco products, Smoking status: Patient denies any tobacco usage or history of. Screenin:49 Abuse screen: Denies threats or abuse. Nutritional screening: No deficits noted. em Tuberculosis screening: No symptoms or risk factors identified. Fall Risk None identified. Assessment: 13:50 General: Appears in no apparent distress. comfortable, well groomed, well developed, em well nourished, Behavior is calm, cooperative, Reports fever for 0-12 hours. Pain: Complains of pain in "body aches" Pain currently is 7 out of 10 on a pain scale. Neuro: Level of Consciousness is awake, alert, obeys commands, Oriented to person, place, time, situation, Appropriate for age Reports headache. Cardiovascular: Denies chest pain, shortness of breath, Capillary refill < 3 seconds Patient's skin is warm and dry. Respiratory: Reports cough that is non-productive, Airway is patent Respiratory effort is even, unlabored, Respiratory pattern is regular, symmetrical, Breath sounds are clear bilaterally. GI: Abdomen is flat, Patient currently denies nausea, vomiting. : Denies pain with urination. Derm: Skin is intact, is healthy with good turgor, Skin is dry, Skin is pale. Musculoskeletal: Capillary refill < 3 seconds. 15:15 Reassessment: Patient appears in no apparent distress at this time. Patient and/or em family updated on plan of care and expected duration. Pain level reassessed. pending blood transfusion, skin pale warm and dry, respirations even and unlabored. 15:53 Reassessment: consent form for blood transfusion signed, states she will receive both em units of blood then will leave. 16:30 Reassessment: Patient appears in no apparent distress at this time. initiated blood em transfusion, double checked blood products with REJI Tavera. 17:25 Reassessment: Patient appears in no apparent distress at this time. Patient and/or em family updated on plan of care and expected duration. Pain level reassessed. Patient is alert, oriented x 3, equal unlabored respirations, skin warm/dry/pink. 18:10 Reassessment: Discharge pending completion of blood product transfusion. ss 18:55 Reassessment: Patient appears in no apparent distress at this time. completion of 1 em unit of PRBCs, also reports headache, provider notified, received orders for 650 mg Tylenol. 19:09 Reassessment: provider notified of BP, no orders received. em 19:15 Reassessment: Patient appears in no apparent distress at this time. Patient and/or wh family updated on plan of care and expected duration. Pain level reassessed. Patient is alert, oriented x 3, equal unlabored respirations, skin warm/dry/pink. Pt with DC order but still need to transfuse 2nd unit PRBC, Charge aware. 20:00 Reassessment: Patient appears in no apparent distress at this time. No changes from previously documented assessment. Patient and/or family updated on plan of care and expected duration. Pain level reassessed. Patient is alert, oriented x 3, equal unlabored respirations, skin warm/dry/pink. 21:15 Reassessment: Patient appears in no apparent distress at this time. No changes from previously documented assessment. Patient and/or family updated on plan of care and expected duration. Pain level reassessed. Patient is alert, oriented x 3, equal unlabored respirations, skin warm/dry/pink. 22:45 Reassessment: Pt with DC order but not wanting to stay for the 2 hour post H\\T\\H, Charge nurse notified, Pt signed AMA form. Pt discharged but signed AMA. Vital Signs: 13:40 BP 155 / 103; Pulse 86; Resp 18; Temp 98.7; Pulse Ox 98% ; Weight 88.45 kg; Height 5 ll1 ft. 3 in. (160.02 cm); Pain 7/10; 14:20 BP 159 / 107; Pulse 74; Resp 18; Pulse Ox 97% on R/A; Pain 7/10; em 14:31 BP 163 / 97; Pulse 72; Resp 17; Pulse Ox 98% on R/A; mh5 15:00 BP 167 / 95; Pulse 73; Resp 20; Pulse Ox 99% on R/A; em 16:25 BP 165 / 97; Pulse 82; Resp 18; Temp 98.2(TE); Pulse Ox 97% on R/A; Pain 4/10; em 16:30 em 19:30 BP 168 / 96; Pulse 84; Resp 18; Pulse Ox 99% on R/A; wh 20:30 BP 168 / 87; Pulse 79; Resp 16; Pulse Ox 98% on R/A; wh 21:30 BP 178 / 93; Pulse 84; Resp 18; Pulse Ox 99% on R/A; wh 22:30 BP 172 / 94; Pulse 86; Resp 16; Pulse Ox 99% on R/A; wh 13:40 Body Mass Index 34.54 (88.45 kg, 160.02 cm) ll1 16:30 please see transfusion flow sheet for VS em ED Course: 13:35 Patient arrived in ED. as 13:39 Domingo Espino MD is Attending Physician. ps1 13:42 Triage completed. ll1 13:43 Arm band placed on left wrist. Patient placed in an exam room. ll1 13:46 Oneal Trujillo, RN is Primary Nurse. em 13:50 Patient has correct armband on for positive identification. Placed in gown. Bed in low em position. Call light in reach. 14:31 Initial lab(s) drawn, by ar, sent to lab. Inserted saline lock: 22 gauge in right [facility] antecubital area, using aseptic technique. Blood collected. 14:31 CMP Sent. [facility] 14:31 CBC with Diff Sent. [facility] 23:00 No provider procedures requiring assistance completed. IV discontinued, intact, bleeding controlled, No redness/swelling at site. Administered Medications: 13:58 Drug: Decadron - Dexamethasone 10 mg {Note: given PO in ice water.} Route: IVP; Site: em Other; 15:00 Follow up: Response: No adverse reaction em 13:58 Drug: Motrin 600 mg Route: PO; em 15:00 Follow up: Response: No adverse reaction em 19:15 Drug: Tylenol 650 mg Route: PO; 22:58 Follow up: Response: No adverse reaction 21:56 Drug: TORadol - Ketorolac 15 mg Route: IVP; Site: right antecubital; 22:58 Follow up: Response: No adverse reaction; Pain is decreased Outcome: 18:08 Discharge ordered by . [facility] 23:00 Discharged to home ambulatory, with friend. 23:00 Condition: stable 23:00 Discharge instructions given to patient, Instructed on discharge instructions, follow up and referral plans. medication usage, POC Demonstrated understanding of instructions, follow-up care, medications, POC Prescriptions given X 1. 23:02 Patient left the ED. Signatures: Bobby Verma RN RN Oneal Trujillo RN RN Toma Egan Shelby, RN RN Key Egan [facility] Richard Castaneda Domingo Espino MD MD ps1 Gurwinder Hercules RN RN ll1 Corrections: (The following items were deleted from the chart) 15:32 13:50 Derm: Skin is intact, is healthy with good turgor, Skin is pink, warm \\T\\ dry. em em 16:07 13:40 Acuity: ALICIA 4 ll1 em
[2019-06-12] MEDS ORDERED: ACETAMINOPHEN 325 MG TABLET ONE (19:09)
[2019-06-12] MEDS ORDERED: KETOROLAC 30 MG/ML INJ ONE (22:00)
[2019-06-12 23:47] VITALS: TEMP 98.2
[2019-06-12 23:51] VITALS: O2SAT 99
[2019-06-12 23:53] VITALS: BP 172/94
== END 2019-06-12 23:02 | disposition home or self-care (01) ==
LOC: ER 13:30
PROC: 30233N1 Transfusion of Nonautologous Red Blood Cells into Peripheral Vein, Percutaneous Approach (ICD-10-PCS; principal; 2019-06-12)
DX: D50.9 Iron deficiency anemia, unspecified (principal); I10 Essential (primary) hypertension
CPT/HCPCS: 36415; 80053; 81003; 81025; 82728; 83540; 84466; 85025; 86850; 86900; 86901; 87804; 99284; J7030; P9016

== ENCOUNTER 2019-06-16 19:22 | Emergency (ER) | payer SELFPAY ==
--- OUTSIDE RECORDS SUMMARY | 2019-06-16 19:25 | XMS REPORT ---
:1985 [facility] Murdock [address] [place] [id number] Care Team Providers Name Role Phone Unavailable Unavailable Unavailable Problems This patient has no known problems. Allergies, Adverse Reactions, Alerts This patient has no known allergies or adverse reactions. Medications This patient has no known medications.
--- NOTE | 2019-06-16 20:54 | RAD REPORT ---
EXAM DESCRIPTION: RAD - Chest Pa And Lat (2 Views) - 06/16/2019 8:27 pm CLINICAL HISTORY: COUGH COMPARISON: No comparisons TECHNIQUE: Frontal and lateral views of the chest were obtained. FINDINGS: The lungs are clear of a peripheral mass consolidation. Interstitial markings are minimall y prominent with baseline unknown. A minimal viral infiltrate pattern is possible. Heart size is no rmal and central vasculature is within normal limits. No pleural effusion or pneumothorax seen. No acute bony finding noted. No aortic abnormality. IMPRESSION: No focal consolidation or other findings of bacterial pneumonia. Mild prominence of the interstitial pattern on a baseline study could be a mild viral infiltrate.
--- NOTE | 2019-06-16 21:26 | EDPHYS ---
Physician Documentation [facility] Name: Joyce Mera Age: 33 yrs Sex: Female : 1985 Arrival Date: 06/16/2019 Time: 19:25 Bed 14 Private MD: ED Physician Aman Frazier HPI: 06/15 21:23 This 33 yrs old Female presents to ER via Ambulatory with complaints of Flu rn Symptoms. 21:23 The patient or guardian reports cough, flu symptoms. Onset: The symptoms/episode rn began/occurred 5 day(s) ago. Severity of symptoms: At their worst the symptoms were mild, in the emergency department the symptoms are unchanged. Modifying factors: The symptoms are alleviated by nothing, the symptoms are aggravated by nothing. The patient has not experienced similar symptoms in the past. The patient has been recently seen by a physician:. Reports seen here recently, transfused blood for anemia, but URI not addressed, reports flu neg then, but feels worse, non-smoker. + headache/muscle aches/cough/runny nose/fatigue.. 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 - Social history:: Smoking status: Patient denies any tobacco usage or history of. - Family history:: not pertinent. - Hospitalizations: : No recent hospitalization is reported. ROS: 21:23 Constitutional: + fever and chills Eyes: Negative for injury, pain, redness, and rn telemetry, ENT: + nasal cognestion and cough/sore throat Neck: Negative for injury, pain, and swelling, Cardiovascular: Negative for chest pain, palpitations, and edema, Respiratory: Negative for shortness of breath, wheezing, and pleuritic chest pain, Abdomen/GI: Negative for abdominal pain, nausea, vomiting, diarrhea, and constipation, MS/Extremity: Negative for injury and deformity, Skin: Negative for injury, rash, and discoloration, Neuro: Negative for numbness, tingling, and seizure. Exam: 21:23 Constitutional: This is a well developed, well nourished patient who is awake, alert, rn and in no acute distress. Head/Face: Normocephalic, atraumatic. Eyes: Pupils equal round and reactive to light, extra-ocular motions intact. Lids and lashes normal. Conjunctiva and sclera are non-icteric and not injected. Cornea within normal limits. Periorbital areas with no swelling, redness, or edema. ENT: + clear nasal drainage, + mild pharyngeal erythema, no stridor Neck: Trachea midline, no thyromegaly or masses palpated, and no cervical lymphadenopathy. Supple, full range of motion without nuchal rigidity, or vertebral point tenderness. No Meningismus. Cardiovascular: Regular rate and rhythm. No pulse deficits. Respiratory: Lungs have equal breath sounds bilaterally, clear to auscultation. No increased work of breathing, no retractions or nasal flaring. Abdomen/GI: soft, non-tender Skin: Warm, dry with normal turgor. Normal color with no rashes, no lesions, and no evidence of cellulitis. MS/ Extremity: Pulses equal, no cyanosis. Neurovascular intact. Full, normal range of motion. Equal circumference. Neuro: Awake and alert, GCS 15, oriented to person, place, time, and situation. Vital Signs: 19:41 BP 157 / 104; Pulse 83; Resp 16 S; Temp 99.1(O); Pulse Ox 96% on R/A; Weight 88.45 kg bb (R); Height 5 ft. 3 in. (160.02 cm) (R); Pain 9/10; 21:15 BP 151 / 102; Pulse 84; Resp 18; Pulse Ox 99% on R/A; wh 19:41 Body Mass Index 34.54 (88.45 kg, 160.02 cm) bb MDM: 20:04 Patient medically screened. rn 21:23 Differential Diagnosis: Influenza Upper Respiratory Infection Viral Syndrome Pneumonia. rn Data reviewed: vital signs, nurses notes, lab test result(s), radiologic studies, plain films, and as a result, I will discharge patient. Counseling: I had a detailed discussion with the patient and/or guardian regarding: the historical points, exam findings, and any diagnostic results supporting the discharge/admit diagnosis, lab results, radiology results, the need for outpatient follow up, to return to the emergency department if symptoms worsen or persist or if there are any questions or concerns that arise at home. Special discussion: I discussed with the patient/guardian in detail that at this point there is no indication for admission to the hospital. It is understood, however, that if the symptoms persist or worsen the patient needs to return immediately for re-evaluation. ED course: CXR with viral infiltrate, flu +, no oxygen requirement, too late for tamiflu. . 06/15 19:50 Order name: Strep; Complete Time: 21:10 bb 06/15 19:50 Order name: Flu; Complete Time: 21:10 bb 06/15 20:12 Order name: XRAY Chest Pa And Lat (2 Views); Complete Time: 21:10 rn 06/15 20:23 Order name: Throat Culture EDMS Administered Medications: No medications were administered Disposition: 06/16/19 21:26 Discharged to Home. Impression: Acute upper respiratory infection, unspecified, Influenza due to other identified influenza virus. - Condition is Stable. - Discharge Instructions: Influenza, Adult, Viral Respiratory Infection. - Medication Reconciliation Form, Thank You Letter, Antibiotic Education, Prescription Opioid Use, Work release form form. - Follow up: Private Physician; When: As needed; Reason: Recheck today's complaints, Re-evaluation by your physician. - Problem is an ongoing problem. - Symptoms have improved. Signatures: Dispatcher [employer] EDMS Kamilah Melendez RN RN bb Nieto, Roman, MD MD rn Habalo, Winsy wh Corrections: (The following items were deleted from the chart) 22:11 21:26 06/16/2019 21:26 Discharged to Home. Impression: Acute upper respiratory wh infection, unspecified; Influenza due to other identified influenza virus. Condition is Stable. Forms are Medication Reconciliation Form, Thank You Letter, Antibiotic Education, Prescription Opioid Use. Follow up: Private Physician; When: As needed; Reason: Recheck today's complaints, Re-evaluation by your physician. Problem is an ongoing problem. Symptoms have improved. rn
--- NOTE | 2019-06-16 21:26 | ER ---
Nurse's Notes [facility] Name: Joyce Mera Age: 33 yrs Sex: Female : 1985 Arrival Date: 06/16/2019 Time: 19:25 Bed 14 Private MD: Diagnosis: Acute upper respiratory infection, unspecified;Influenza due to other identified influenza virus Presentation: 06/15 19:41 Chief complaint: Patient states: she has been having the same symptoms x 5 days which bb are worsening she was here 5 days ago and her hgb was 5.9 so she received 2 units of blood but her cold-like symptoms weren't addressed and she is feeling worse with cough, pain when coughing, fever, body aches. Coronavirus screen: The patient has NOT traveled to [place] in the past 14 days. Proceed with normal triage procedures. Ebola Screen: No symptoms or risks identified at this time. Initial Sepsis Screen: Does the patient meet any 2 criteria? No. Patient's initial sepsis screen is negative. Does the patient have a suspected source of infection? No. Patient's initial sepsis screen is negative. Risk Assessment: Do you want to hurt yourself or someone else? Patient reports no desire to harm self or others. Onset of symptoms was May 2019. 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 - Social history:: Smoking status: Patient denies any tobacco usage or history of. - Family history:: not pertinent. - Hospitalizations: : No recent hospitalization is reported. Screenin:15 Abuse screen: Denies threats or abuse. Denies injuries from another. Nutritional wh screening: No deficits noted. Tuberculosis screening: No symptoms or risk factors identified. Fall Risk None identified. Assessment: 20:15 General: Appears in no apparent distress. Behavior is calm, cooperative, appropriate wh for age. Pain: Complains of pain in generalized pain. Neuro: Level of Consciousness is awake, alert, obeys commands, Oriented to person, place, time, situation, Appropriate for age. Cardiovascular: Heart tones S1 S2. Respiratory: Reports cough that is pain with cough Airway is patent Respiratory effort is even, unlabored, Respiratory pattern is regular, symmetrical, Breath sounds are clear bilaterally. GI: Abdomen is flat, non-distended. : No signs and/or symptoms were reported regarding the genitourinary system. EENT: Throat is pink. Derm: Skin is intact, is healthy with good turgor, Skin is pink, warm \T\ dry. normal. Musculoskeletal: Circulation, motion, and sensation intact. 21:45 Reassessment: Patient appears in no apparent distress at this time. No changes from previously documented assessment. Patient and/or family updated on plan of care and expected duration. Pain level reassessed. Patient is alert, oriented x 3, equal unlabored respirations, skin warm/dry/pink. Vital Signs: 19:41 BP 157 / 104; Pulse 83; Resp 16 S; Temp 99.1(O); Pulse Ox 96% on R/A; Weight 88.45 kg bb (R); Height 5 ft. 3 in. (160.02 cm) (R); Pain 9/10; 21:15 BP 151 / 102; Pulse 84; Resp 18; Pulse Ox 99% on R/A; wh 19:41 Body Mass Index 34.54 (88.45 kg, 160.02 cm) ED Course: 19:25 Patient arrived in ED. [id number] 19:44 Triage completed. bb 19:45 Arm band placed on Patient placed in waiting room, Patient notified of wait time. flu bb swab sent to lab. 20:00 Richard Castaneda is Primary Nurse. 20:04 Aman Frazier MD is Attending Physician. rn 20:15 Patient has correct armband on for positive identification. Bed in low position. Call light in reach. Side rails up X 1. Pulse ox on. NIBP on. 20:24 XRAY Chest Pa And Lat (2 Views) In Process Unspecified. EDMS 22:10 No provider procedures requiring assistance completed. Patient did not have IV access during this emergency room visit. Administered Medications: No medications were administered Outcome: 21:26 Discharge ordered by . rn 22:10 Discharged to home ambulatory, with friend. 22:10 Condition: stable 22:10 Discharge instructions given to patient, Instructed on discharge instructions, follow up and referral plans. POC Demonstrated understanding of instructions, follow-up care, POC 22:11 Patient left the ED. wh Signatures: Dispatcher [employer] Kamilah Atkinson, Aman Hanson RN, MD MD rn Habalo, Winsy wh Gutierrez, Jessica [id number]
[2019-06-17 00:49] VITALS: TEMP 99.1
[2019-06-17 00:50] VITALS: BP 151/102; O2SAT 99
== END 2019-06-16 22:11 | disposition home or self-care (01) ==
LOC: ER 19:22
DX: J10.1 Influenza due to other identified influenza virus with other respiratory manifestations (principal)
CPT/HCPCS: 71046; 87070; 87081; 87804; 99283

== ENCOUNTER 2019-08-02 21:29 | Emergency (ER) | payer SELFPAY ==
--- OUTSIDE RECORDS SUMMARY | 2019-08-02 21:31 | XMS REPORT ---
:1985 Author Organization [facility] t Address [address] [place] [address] Dr. Murdock [address] [place] [id number] Care Team Providers Name Role Phone Unavailable Unavailable Unavailable Problems This patient has no known problems. Allergies, Adverse Reactions, Alerts This patient has no known allergies or adverse reactions. Medications This patient has no known medications.
[2019-08-02 22:05] LABS: Absolute Lymphocytes (CBC) 1.2 K/uL (0.7-4.9); Basophils % 0.7 % (0-1.3); Hematocrit 22.4 % (36.0-45.0); Lymphocytes % 20.2 % (15.3-44.8); MPV 8.1 fL (7.6-11.3); RBC Red Blood Cell Count 3.15 M/uL (3.86-4.86)
[2019-08-02 22:27] LABS: Potassium 3.6 mmol/L (3.5-5.1)
[2019-08-02 23:17] LABS: Platelet Estimate ADEQ; Urine White Blood Cell Casts OK
[2019-08-02 23:18] LABS: Anisocytosis 1+; Blood Morphology Comment NOTED (NOT SEEN); Hypochromasia 1+
[2019-08-02] MEDS ORDERED: NA CHLORIDE 0.9% 250 ML ONE (23:18)
[2019-08-03] MEDS ORDERED: NA CHLORIDE 0.9% 250 ML ONE (02:05)
--- NOTE | 2019-08-03 05:02 | ER ---
Nurse's Notes [facility] Name: Joyce Mera Age: 33 yrs Sex: Female : 1985 Arrival Date: 08/02/2019 Time: 21:30 Bed 6 Private MD: Diagnosis: Anemia, unspecified;Abnormal uterine and vaginal bleeding, unspecified Presentation: 08/01 21:46 Chief complaint: Patient states: she has a history of anemia and had a blood bb transfusion approx 2 months ago she started her period yesterday and has been "gushing blood with clots" and now is feeling weak. Coronavirus screen: Proceed with normal triage. Ebola Screen: No symptoms or risks identified at this time. Initial Sepsis Screen: Does the patient meet any 2 criteria? No. Patient's initial sepsis screen is negative. Does the patient have a suspected source of infection? No. Patient's initial sepsis screen is negative. Risk Assessment: Do you want to hurt yourself or someone else? Patient reports no desire to harm self or others. Onset of symptoms was August 02, 2019. 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 - Social history:: Smoking status: Patient denies any tobacco usage or history of. Patient uses alcohol, occasionally. Patient/guardian denies using street drugs. Screenin:59 Abuse screen: Denies threats or abuse. Denies injuries from another. Nutritional rr5 screening: No deficits noted. Tuberculosis screening: No symptoms or risk factors identified. Fall Risk IV access (20 points). Total Parsons Fall Scale indicates No Risk (0-24 pts). Assessment: 21:50 General: Appears in no apparent distress. comfortable, Behavior is calm, cooperative, rr5 appropriate for age. Pain: Complains of pain in right lower quadrant and left lower quadrant Pain does not radiate. Pain currently is 6.5 out of 10 on a pain scale. Quality of pain is described as aching, Pain began 30 min ago. Is continuous. 21:50 Neuro: Level of Consciousness is awake, alert, obeys commands, Oriented to person, rr5 place, time, situation, Appropriate for age. Cardiovascular: Capillary refill < 3 seconds Patient's skin is warm and dry. Respiratory: Airway is patent Respiratory effort is even, unlabored, Respiratory pattern is regular, symmetrical. GI: Reports lower abdominal pain. : Reports vaginal bleeding that is heavy flow. EENT: No signs and/or symptoms were reported regarding the EENT system. Derm: Skin is intact, is healthy with good turgor, Skin temperature is warm. Musculoskeletal: Circulation, motion, and sensation intact. Capillary refill < 3 seconds. 22:25 Reassessment: Patient appears in no apparent distress at this time. Patient is alert, rr5 oriented x 3, equal unlabored respirations, skin warm/dry/pink. Hgb 6.8 Ed provider ordered for 2 PRBC. consented and request sent. 23:30 Reassessment: Patient appears in no apparent distress at this time. Patient is alert, rr5 oriented x 3, equal unlabored respirations, skin warm/dry/pink. awaiting for the PRBC. patient is resting no complaints made. 08/02 00:15 Reassessment: Patient appears in no apparent distress at this time. Patient is alert, rr5 oriented x 3, equal unlabored respirations, skin warm/dry/pink. Blood transfusion first unit PRBC with blood component number [id number] exp august, type O negative. double checked by michael MENDOZA. 01:05 Reassessment: Patient appears in no apparent distress at this time. Patient is alert, rr5 oriented x 3, equal unlabored respirations, skin warm/dry/pink. ongoing Blood transfusion, lying on bed comfortably. 02:10 Reassessment: Patient appears in no apparent distress at this time. Patient is alert, rr5 oriented x 3, equal unlabored respirations, skin warm/dry/pink. first unit of PRBC consumed and terminated. second unit of PRBC requested and sent to blood bank. 02:55 Reassessment: Patient appears in no apparent distress at this time. Patient is alert, rr5 oriented x 3, equal unlabored respirations, skin warm/dry/pink. second unit of PRBC started. 03:00 Reassessment: Patient appears in no apparent distress at this time. No changes from rr5 previously documented assessment. Patient is alert, oriented x 3, equal unlabored respirations, skin warm/dry/pink. no complaints made. 04:50 Reassessment: Patient appears in no apparent distress at this time. Patient is alert, rr5 oriented x 3, equal unlabored respirations, skin warm/dry/pink. second unit PRBC consumed and terminated. patient for repeat H\\T\\H. ED provider informed patient does not want to wait for the result she wants to go now. ED provider ordered to extract blood then discharge. 05:15 Reassessment: Patient appears in no apparent distress at this time. Patient is alert, rr5 oriented x 3, equal unlabored respirations, skin warm/dry/pink. discharge instruction given and explained without complaints made. Patient states feeling better. Patient states symptoms have improved. Vital Signs: 08/01 21:46 BP 147 / 103; Pulse 91; Resp 16 S; Temp 98.2(O); Pulse Ox 100% on R/A; Weight 88.45 kg bb (R); Height 5 ft. 3 in. (160.02 cm) (R); Pain 7/10; 22:50 BP 180 / 106; Pulse 100; Resp 17; Pulse Ox 99% on R/A; rr5 08/02 00:00 BP 166 / 105; Pulse 94; Resp 16; Temp 98; Pulse Ox 100% ; rr5 01:00 rr5 08/01 21:46 Body Mass Index 34.54 (88.45 kg, 160.02 cm) bb 01:00 suceeding V/S please see the attached transfusion record form. rr5 ED Course: 08/01 21:30 Patient arrived in ED. cl3 21:37 Angel Garcia, REJI is Primary Nurse. rr5 21:38 Evan Ramirez MD is Attending Physician. tw4 21:45 Inserted saline lock: 18 gauge in right antecubital area, using aseptic technique. ds4 Blood collected. 21:50 Triage completed. bb 21:50 Arm band placed on Patient placed in an exam room, on a stretcher, on pulse oximetry. bb 21:53 Basic Metabolic Panel Sent. ds4 21:53 Type And Screen Sent. ds4 21:53 Basic Metabolic Panel Sent. ds4 21:53 CBC with Diff Sent. ds4 22:42 Patient has correct armband on for positive identification. Placed in gown. Bed in low rr5 position. Call light in reach. Side rails up X2. Pulse ox on. NIBP on. 08/02 05:00 Repeat lab(s) drawn. by wy, sent to lab. rr5 05:14 Sharona Combs MD is Referral Physician. tw4 05:14 Federico Gregg MD is Referral Physician. tw4 05:14 Rick Jj MD is Referral Physician. tw4 05:20 No provider procedures requiring assistance completed. IV discontinued, intact, rr5 bleeding controlled, No redness/swelling at site. Pressure dressing applied. Administered Medications: No medications were administered Medication: 00:15 Blood products: PRBCs X 1 unit given. [id number] Expiration august 15, 2019, Type O rr5 negative, double checked by michael MENDOZA- hooked and started. See transfusion record. 02:55 Blood products: PRBCs X 1 unit given. [id number], Exp: 08/13/2019 2359H, type O rr5 positive, double checked by ken MENDOZA, hooked as second unit of PRBC. See transfusion record. Outcome: 05:02 Discharge ordered by . tw4 05:20 Discharged to home ambulatory. rr5 05:20 Condition: stable 05:20 Discharge instructions given to patient, Instructed on discharge instructions, follow up and referral plans. medication usage, Demonstrated understanding of instructions, follow-up care, medications, Prescriptions given X 1. 05:21 Patient left the ED. rr5 Signatures: Kamilah Melendez, RN RN Hernandez Gonzáles ds4 Evan Ramirez MD MD tw4 Angel Garcia RN RN rr5 Adwoa Hercules cl3
--- NOTE | 2019-08-03 05:02 | EDPHYS ---
Physician Documentation [facility] Name: Joyce Mera Age: 33 yrs Sex: Female : 1985 Arrival Date: 08/02/2019 Time: 21:30 Bed 6 Private MD: ED Physician Evan Ramirez HPI: 08/02 02:56 This 33 yrs old Female presents to ER via Ambulatory with complaints of tw4 General Weakness. 02:56 The patient presents with generalized weakness. Onset: The symptoms/episode tw4 began/occurred today. Context: occurred at home. Modifying factors: The symptoms are alleviated by nothing, the symptoms are aggravated by nothing. Associated signs and symptoms: Pertinent positives: vaginal bleeding. Severity of symptoms: At their worst the symptoms were mild in the emergency department the symptoms are unchanged. The patient has not experienced similar symptoms in the past. 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 - Social history:: Smoking status: Patient denies any tobacco usage or history of. Patient uses alcohol, occasionally. Patient/guardian denies using street drugs. ROS: 08/02 02:56 Constitutional: Negative for fever, chills, and weight loss, Eyes: Negative for injury, tw4 pain, redness, and discharge, Cardiovascular: Negative for chest pain, palpitations, and edema, Respiratory: Negative for shortness of breath, cough, wheezing, and pleuritic chest pain, Abdomen/GI: Negative for abdominal pain, nausea, vomiting, diarrhea, and constipation, Back: Negative for injury and pain, MS/Extremity: Negative for injury and deformity, Skin: Negative for injury, rash, and discoloration. Exam: 02:56 Constitutional: This is a well developed, well nourished patient who is awake, alert, tw4 and in no acute distress. Head/Face: Normocephalic, atraumatic. Chest/axilla: Normal chest wall appearance and motion. Nontender with no deformity. No lesions are appreciated. Cardiovascular: Regular rate and rhythm with a normal S1 and S2. No gallops, murmurs, or rubs. Normal PMI, no JVD. No pulse deficits. Respiratory: Lungs have equal breath sounds bilaterally, clear to auscultation and percussion. No rales, rhonchi or wheezes noted. No increased work of breathing, no retractions or nasal flaring. Abdomen/GI: Soft, non-tender, with normal bowel sounds. No distension or tympany. No guarding or rebound. No evidence of tenderness throughout. Back: No spinal tenderness. No costovertebral tenderness. Full range of motion. MS/ Extremity: Pulses equal, no cyanosis. Neurovascular intact. Full, normal range of motion. Neuro: Awake and alert, GCS 15, oriented to person, place, time, and situation. Cranial nerves II-XII grossly intact. Motor strength 5/5 in all extremities. Sensory grossly intact. Cerebellar exam normal. Normal gait. Vital Signs: 08/01 21:46 BP 147 / 103; Pulse 91; Resp 16 S; Temp 98.2(O); Pulse Ox 100% on R/A; Weight 88.45 kg bb (R); Height 5 ft. 3 in. (160.02 cm) (R); Pain 7/10; 22:50 BP 180 / 106; Pulse 100; Resp 17; Pulse Ox 99% on R/A; rr5 08/02 00:00 BP 166 / 105; Pulse 94; Resp 16; Temp 98; Pulse Ox 100% ; rr5 01:00 rr5 08/01 21:46 Body Mass Index 34.54 (88.45 kg, 160.02 cm) bb 01:00 suceeding V/S please see the attached transfusion record form. rr5 MDM: 08/01 21:50 Patient medically screened. tw4 08/02 03:18 Differential diagnosis: generalized weakness, hypovolemia, idiopathic dizziness, tw4 near-syncope, , sepsis. Data reviewed: vital signs, nurses notes, lab test result(s), cardiac enzymes, CBC, urinalysis. Data interpreted: Pulse oximetry: Interpretation: normal. Test interpretation: by ED physician or midlevel provider: not applicable. Counseling: I had a detailed discussion with the patient and/or guardian regarding: the historical points, exam findings, and any diagnostic results supporting the discharge/admit diagnosis, lab results. 08/01 21:51 Order name: Basic Metabolic Panel [facility] 08/01 21:51 Order name: CBC with Diff [facility] 08/01 22:26 Interpretation: Normal except: RDW 20.5; MCH 21.5; MCHC 30.1; MCV 71.3; HCT 22.4; HGB tw4 6.8; RBC 3.15. 08/01 21:51 Order name: Type And Screen [facility] 08/01 21:52 Order name: Basic Metabolic Panel [facility] 08/01 22:35 Order name: Packed RBC Leukored [facility] 08/01 23:18 Order name: CBC Smear Scan [facility] 08/01 21:51 Order name: IV Saline Lock; Complete Time: 21:53 [facility] 08/01 21:51 Order name: Labs collected and sent; Complete Time: 21:53 [facility] 08/01 21:51 Order name: NPO; Complete Time: 21:52 [facility] 08/01 21:51 Order name: Urine Dipstick-Ancillary (obtain specimen); Complete Time: 22:41 [facility] 08/01 22:21 Order name: Transfuse; Complete Time: 05:37 [facility] 08/01 22:41 Order name: Urine Test (obtain specimen); Complete Time: 22:41 rr5 08/02 05:05 Order name: Hemoglobin [facility] 08/02 05:05 Order name: Hematocrit [facility] Administered Medications: No medications were administered Disposition: 08/03/19 05:02 Discharged to Home. Impression: Anemia, unspecified, Abnormal uterine and vaginal bleeding, unspecified. - Condition is Stable. - Discharge Instructions: Abnormal Uterine Bleeding, Anemia, Nonspecific. - Prescriptions for Ferrous Sulfate 325 mg (65 mg Iron) Oral Tablet - take 1 tablet by ORAL route every 8 hours; 90 tablet. - Medication Reconciliation Form, Thank You Letter, Antibiotic Education, Prescription Opioid Use, Work release form form. - Follow up: Private Physician; When: Upon discharge from the Emergency Department; Reason: Recheck today's complaints, Continuance of care, Re-evaluation by your physician. Follow up: Sharona Combs MD; When: Upon discharge from the Emergency Department; Reason: Recheck today's complaints, Continuance of care, Re-evaluation by your physician. Follow up: Federico Gregg MD; When: Upon discharge from the Emergency Department; Reason: Recheck today's complaints, Continuance of care, Re-evaluation by your physician. Follow up: Rick Jj MD; When: Upon discharge from the Emergency Department; Reason: Recheck today's complaints, Continuance of care, Re-evaluation by your physician. - Problem is new. - Symptoms have improved. Signatures: Dispatcher [employer] EDKamilah Fregoso RN RN Evan Stern MD MD tw4 Angel Garcia RN RN rr5 Corrections: (The following items were deleted from the chart) 05:15 05:02 08/03/2019 05:02 Discharged to Home. Impression: Anemia, unspecified; Abnormal tw4 uterine and vaginal bleeding, unspecified. Condition is Stable. Forms are Medication Reconciliation Form, Thank You Letter, Antibiotic Education, Prescription Opioid Use. Follow up: Private Physician; When: Upon discharge from the Emergency Department; Reason: Recheck today's complaints, Continuance of care, Re-evaluation by your physician. Problem is new. Symptoms have improved. tw4 05:21 05:15 08/03/2019 05:02 Discharged to Home. Impression: Anemia, unspecified; Abnormal rr5 uterine and vaginal bleeding, unspecified. Condition is Stable. Discharge Instructions: Abnormal Uterine Bleeding, Anemia, Nonspecific. Prescriptions for Ferrous Sulfate 325 mg (65 mg Iron) Oral Tablet - take 1 tablet by ORAL route every 8 hours; 90 tablet. and Forms are Medication Reconciliation Form, Thank You Letter, Antibiotic Education, Prescription Opioid Use, Work release form. Follow up: Private Physician; When: Upon discharge from the Emergency Department; Reason: Recheck today's complaints, Continuance of care, Re-evaluation by your physician. Follow up: Sharona Combs; When: Upon discharge from the Emergency Department; Reason: Recheck today's complaints, Continuance of care, Re-evaluation by your physician. Follow up: Federico Gregg; When: Upon discharge from the Emergency Department; Reason: Recheck today's complaints, Continuance of care, Re-evaluation by your physician. Follow up: Rick Jj; When: Upon discharge from the Emergency Department; Reason: Recheck today's complaints, Continuance of care, Re-evaluation by your physician. Problem is new. Symptoms have improved. tw4
[2019-08-03 05:14] LABS: Hematocrit 25.9 % (36.0-45.0)
[2019-08-03 05:31] VITALS: BP 166/105; TEMP 98; O2SAT 100
== END 2019-08-03 05:21 | disposition home or self-care (01) ==
LOC: ER 21:29
PROC: 30233N1 Transfusion of Nonautologous Red Blood Cells into Peripheral Vein, Percutaneous Approach (ICD-10-PCS; principal; 2019-08-03)
DX: D64.9 Anemia, unspecified (principal); I10 Essential (primary) hypertension
CPT/HCPCS: 36415; 36430; 80048; 85014; 85018; 85025; 86850; 86900; 86901; 86922; 99284; J7030; P9016

== ENCOUNTER 2019-08-25 10:44 | Emergency (ER) | payer SELFPAY ==
--- OUTSIDE RECORDS SUMMARY | 2019-08-25 10:52 | XMS REPORT ---
:1985 Author Organization [facility] t Address [address] [place] [address] Dr. Murdock [address] [place] [id number] Care Team Providers Name Role Phone Unavailable Unavailable Unavailable Problems This patient has no known problems. Allergies, Adverse Reactions, Alerts This patient has no known allergies or adverse reactions. Medications This patient has no known medications.
--- OUTSIDE RECORDS SUMMARY | 2019-08-25 10:52 | XMS REPORT | Clinical Summary ---
:1985 Author Organization [facility] Address [address] [place] [address] Care Team Providers Name Role Phone Unavailable Primary Care Provider Unavailable Allergies Not on File Medications Not on file Active Problems Problem Noted Date Coffee ground emesis 08/18/2017 Acute blood loss anemia 08/18/2017 Overview: In anticipation for transfer to [facility] from [facility] to [facility] on for acute blood loss anemia with evidence of upper GI bleed. GI aware and planning to perform upper endoscopy on Sunday once patient is able to be admitted. ETA unkn own at this time. GI will see in the morning of admission, no need to page overnight unless more symptoms of active GI bleeding are apparent such as continuous me federico or bright red emesis and hemodynami c instability. Already received 2units at [facility] in anticipation for transfer. Will need to perform serial CBCs q6hs and keep NPO with IV fluids. Garfield Worley MD PGY6 Gastroenterology and Hepatology [facility] Social History Tobacco Use Types Packs/Day Years Used Date Never Assessed Sex Assigned at Date Recorded Not on file Job Start Date Occupation Industry Not on file Not on file Not on file Travel History Travel Start Travel End No recent travel history available. Last Filed Vital Signs Not on file Plan of Treatment Not on file Results Not on fileafter 08/24/2018
--- NOTE | 2019-08-25 12:55 | ER ---
Nurse's Notes [facility] Name: Joyce Mera Age: 33 yrs Sex: Female : 1985 Arrival Date: 08/25/2019 Time: 10:45 Bed Waiting Private MD: Diagnosis: Presentation: 08/24 11:21 Chief complaint: Patient states: Started itching all over since 0200 today. Denies rash ca1 and hives. Took Benadryl at 0300. Coronavirus screen: Proceed with normal triage. Patient denies a cough. Patient denies shortness of breath or difficulty breathing. Patient denies measured and/or subjective temperature greater than 100.4F prior to today's visit. Patient denies travel on a cruise ship or to a country the [facility] currently lists as an affected area. Patient denies contact with known and/or suspected case of COVID-19. Ebola Screen: Patient negative for fever greater than or equal to 101.5 degrees Fahrenheit, and additional compatible Ebola Virus Disease symptoms Patient denies exposure to infectious person. Patient denies travel to an Ebola-affected area in the 21 days before illness onset. No symptoms or risks identified at this time. Initial Sepsis Screen: Does the patient meet any 2 criteria? No. Patient's initial sepsis screen is negative. Does the patient have a suspected source of infection? No. Patient's initial sepsis screen is negative. Risk Assessment: Do you want to hurt yourself or someone else? Patient reports no desire to harm self or others. Onset of symptoms was August 25, 2019. 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 - Social history:: Smoking status: Patient denies any tobacco usage or history of. Vital Signs: 11: BP 176 / 116; Pulse 82; Resp 16 S; Temp 97.6(TE); Pulse Ox 99% on R/A; Weight 88.45 kg ca1 (R); Height 5 ft. 3 in. (160.02 cm) (R); 11:21 Body Mass Index 34.54 (88.45 kg, 160.02 cm) ca1 ED Course: 10:45 Patient arrived in ED. ag5 11:24 Triage completed. ca1 11:25 Arm band placed on right wrist. ca1 11:30 Armand Barton NP is PHCP. pm1 11:30 Shreyas Mera MD is Attending Physician. pm1 Administered Medications: No medications were administered Outcome: 12:54 Patient left the ED. 3 Signatures: Armand Barton NP TRIP FOLLOWER pm1 Diandra Calvillo 3 Liana Rodríguez RN RN ca1 Christiane Galvan ag5 Corrections: (The following items were deleted from the chart) 11:27 11:21 Pulse 82bpm; Resp 16bpm; Spontaneous; Pulse Ox 99% RA; Temp 97.6F Temporal; 88.45 ca1 kg Reported; Height 5 ft. 3 in. Reported; BMI: 34.5; ca1
[2019-08-25 13:05] VITALS: BP 176/116; TEMP 97.6; O2SAT 99
--- NOTE | 2019-08-26 12:59 | EDPHYS ---
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 - Social history:: Smoking status: Patient denies any tobacco usage or history of. Vital Signs: 11:21 BP 176 / 116; Pulse 82; Resp 16 S; Temp 97.6(TE); Pulse Ox 99% on R/A; Weight 88.45 kg ca1 (R); Height 5 ft. 3 in. (160.02 cm) (R); 11:21 Body Mass Index 34.54 (88.45 kg, 160.02 cm) ca1 MDM: 13:06 ED course: Patient left the ER after triage. I did not get the opportunity to evaluate pm1 the patient. Administered Medications: No medications were administered Disposition: 20:25 Co-signature as Attending Physician, Shreyas Mera MD I agree with the assessment and anselmo plan of care. Disposition: 08/25/19 12:54 Patient left the facility before being seen by provider. - Patient left due to wait time. Signatures: Shreyas Mera MD MD cha Marinas, Patrick, NP HULL GRINDER pm1 Diandra Calvillo 3 Liana Rodríguez, RN RN ca1
== END 2019-08-25 12:54 | disposition left against medical advice (07) ==
LOC: ER 10:44
DX: Z53.21 Procedure and treatment not carried out due to patient leaving prior to being seen by health care provider (principal)
CPT/HCPCS: 99281

== ENCOUNTER 2019-08-25 23:01 | Emergency (ER) | payer SELFPAY ==
--- OUTSIDE RECORDS SUMMARY | 2019-08-25 23:03 | XMS REPORT ---
:1985 Author Organization [facility] t Address [address] [place] [address] Dr. Murdock [address] [place] [id number] Care Team Providers Name Role Phone Unavailable Unavailable Unavailable Problems This patient has no known problems. Allergies, Adverse Reactions, Alerts This patient has no known allergies or adverse reactions. Medications This patient has no known medications.
--- OUTSIDE RECORDS SUMMARY | 2019-08-25 23:03 | XMS REPORT | Clinical Summary ---
:1985 Author Organization [facility] Address [address] [place] [address] Care Team Providers Name Role Phone Unavailable Primary Care Provider Unavailable Allergies Not on File Medications Not on file Active Problems Problem Noted Date Coffee ground emesis 08/18/2017 Acute blood loss anemia 08/18/2017 Overview: In anticipation for transfer to [facility] from [facility] to [place] on for acute blood loss anemia with [...] hemodynami c instability. Already received 2units at [facility] in anticipation for transfer. Will need to perform serial CBCs q6hs and keep NPO with IV fluids. Garfield Worley MD PGY6 Gastroenterology and Hepatology [facility] Social History Tobacco Use Types Packs/Day Years [...]
--- NOTE | 2019-08-25 23:36 | ER ---
Nurse's Notes [facility] Name: Joyce Mera Age: 33 yrs Sex: Female : 1985 Arrival Date: 08/25/2019 Time: 23:04 Bed 23 Private MD: Diagnosis: Scabies Presentation: 08/24 23:10 Chief complaint: Patient states: I had itching that began around noon today, reports no sg new medications or supplements, maybe a reaction to a new soap, states that she has no rash or bumps just skin itching. Coronavirus screen: Proceed with normal triage. Ebola Screen: Patient negative for fever greater than or equal to 101.5 degrees Fahrenheit, and additional compatible Ebola Virus Disease symptoms Patient denies exposure to infectious person. Patient denies travel to an Ebola-affected area in the 21 days before illness onset. No symptoms or risks identified at this time. Onset: The symptoms/episode began/occurred gradually, 10 hour(s) ago. Anaphylaxis evaluation, no signs or symptoms of anaphylaxis were noted. Initial Sepsis Screen: Does the patient meet any 2 criteria? No. Patient's initial sepsis screen is negative. Does the patient have a suspected source of infection? No. Patient's initial sepsis screen is negative. Risk Assessment: Do you want to hurt yourself or someone else? Patient reports no desire to harm self or others. Onset of symptoms was August 25, 2019. Care prior to arrival: None. 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 - Social history:: Smoking status: Patient denies any tobacco usage or history of. Screenin:36 Abuse screen: Denies threats or abuse. Nutritional screening: No deficits noted. ll1 Tuberculosis screening: No symptoms or risk factors identified. Fall Risk None identified. Total Parsons Fall Scale indicates No Risk (0-24 pts). Assessment: 23:34 General: Appears in no apparent distress. Behavior is calm, cooperative, appropriate ll1 for age. Pain: Denies pain. Neuro: No deficits noted. Cardiovascular: No deficits noted. Respiratory: No deficits noted. Airway is patent Trachea midline Respiratory effort is even, unlabored, Respiratory pattern is regular, symmetrical, Breath sounds are clear bilaterally. Derm: Reports itching, itching all over today. No rash or sores. States she had a new laundry detergent she had washed her sheets in. Informed to go back to old detergent. 23:52 Reassessment: Patient appears in no apparent distress at this time. No changes from ll1 previously documented assessment. Patient and/or family updated on plan of care and expected duration. Pain level reassessed. Patient is alert, oriented x 3, equal unlabored respirations, skin warm/dry/pink. Vital Signs: 23:10 Temp 97.6; Weight 79.38 kg (R); Height 5 ft. 7 in. (170.18 cm); sg 23:11 BP 176 / 115; Pulse 83; Resp 16; Pulse Ox 99% on R/A; mt 23:52 BP 183 / 124; Pulse 83; Resp 16; Pulse Ox 100% ; Pain 0/10; ll1 23:10 Body Mass Index 27.41 (79.38 kg, 170.18 cm) sg ED Course: 23:04 Patient arrived in ED. bp1 23:06 Gissel Villela [facility]C [facility] kb 23:06 Aman Frazier MD is Attending Physician. kb 23:09 Gurwinder Hercules, REJI is Primary Nurse. ll1 23:12 Triage completed. sg 23:12 Arm band placed on. sg 23:36 Patient has correct armband on for positive identification. Bed in low position. Call ll1 light in reach. Side rails up X 1. 23:53 No provider procedures requiring assistance completed. Patient did not have IV access ll1 during this emergency room visit. Administered Medications: 23:34 Drug: Atarax 50 mg Route: PO; ll1 23:52 Follow up: Response: No adverse reaction; RASS: Alert and Calm (0) ll1 Outcome: 23:35 Discharge ordered by . kb 23:53 Discharged to home ambulatory. ll1 23:53 Condition: stable 23:53 Discharge instructions given to patient, Instructed on discharge instructions, follow up and referral plans. medication usage, Demonstrated understanding of instructions, follow-up care, medications, Prescriptions given X 2. 23:53 Patient left the ED. ll1 Signatures: Gissel Villela, JACQUELINE TOLLIVERP-Bobby Guerra RN RN Brenda Antony mt, Lynsay RN RN ll1 Anila Haines [facility]
--- NOTE | 2019-08-25 23:36 | EDPHYS ---
Physician Documentation [facility] Name: Joyce Mera Age: 33 yrs Sex: Female : 1985 Arrival Date: 08/25/2019 Time: 23:04 Bed 23 Private MD: ED Physician Aman Frazier HPI: 08/25 00:08 This 33 yrs old Female presents to ER via Ambulatory with complaints of kb Itching. 00:08 The patient's rash thought to be caused by an unknown cause. The rash is located on the kb left scapular area. Onset: The symptoms/episode began/occurred last night. Associated signs and symptoms: Pertinent positives: itching. Severity of symptoms: At their worst the symptoms were moderate in the emergency department the symptoms are unchanged. Treatment given at home: Benadryl. The patient has not experienced similar symptoms in the past. The patient has not recently seen a physician. Pt reports itching started last night. States itching has been severe to extremities and upper back. Only rash noted to to left scapular area that is linear, but pt states could be from scratching. No other finding on physical exam. 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 . 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 - Social history:: Smoking status: Patient denies any tobacco usage or history of. ROS: 08/25 00:07 Constitutional: Negative for fever, chills, and weight loss, Cardiovascular: Negative kb for chest pain, palpitations, and edema, Respiratory: Negative for shortness of breath, cough, wheezing, and pleuritic chest pain, Abdomen/GI: Negative for abdominal pain, nausea, vomiting, diarrhea, and constipation, Back: Negative for injury and pain, MS/Extremity: Negative for injury and deformity, Neuro: Negative for headache, weakness, numbness, tingling, and seizure. Skin: Positive for itching. Exam: 00:07 Constitutional: This is a well developed, well nourished patient who is awake, alert, kb and in no acute distress. Head/Face: Normocephalic, atraumatic. Chest/axilla: Normal chest wall appearance and motion. Nontender with no deformity. No lesions are appreciated. Cardiovascular: Regular rate and rhythm with a normal S1 and S2. No gallops, murmurs, or rubs. Normal PMI, no JVD. No pulse deficits. Respiratory: Lungs have equal breath sounds bilaterally, clear to auscultation and percussion. No rales, rhonchi or wheezes noted. No increased work of breathing, no retractions or nasal flaring. Abdomen/GI: Soft, non-tender, with normal bowel sounds. No distension or tympany. No guarding or rebound. No evidence of tenderness throughout. MS/ Extremity: Pulses equal, no cyanosis. Neurovascular intact. Full, normal range of motion. Neuro: Awake and alert, GCS 15, oriented to person, place, time, and situation. Cranial nerves II-XII grossly intact. Motor strength 5/5 in all extremities. Sensory grossly intact. Cerebellar exam normal. Normal gait. 00:07 Skin: rash a mild rash is noted, rash can be described as linear, on the left scapular area. Vital Signs: 08/24 23:10 Temp 97.6; Weight 79.38 kg (R); Height 5 ft. 7 in. (170.18 cm); sg 23:11 BP 176 / 115; Pulse 83; Resp 16; Pulse Ox 99% on R/A; mt 23:52 BP 183 / 124; Pulse 83; Resp 16; Pulse Ox 100% ; Pain 0/10; ll1 23:10 Body Mass Index 27.41 (79.38 kg, 170.18 cm) sg MDM: 23:10 Patient medically screened. kb 08/25 00:06 Data reviewed: vital signs, nurses notes. Data interpreted: Pulse oximetry: on room air kb is 100 %. Interpretation: normal. Counseling: I had a detailed discussion with the patient and/or guardian regarding: the historical points, exam findings, and any diagnostic results supporting the discharge/admit diagnosis, the need for outpatient follow up, a family practitioner, to return to the emergency department if symptoms worsen or persist or if there are any questions or concerns that arise at home. Administered Medications: 08/24 23:34 Drug: Atarax 50 mg Route: PO; ll1 23:52 Follow up: Response: No adverse reaction; RASS: Alert and Calm (0) ll1 Disposition: 08/25 00:08 Co-signature as Attending Physician, Aman Frazier MD. rn Disposition: 08/25/19 23:35 Discharged to Home. Impression: Scabies. - Condition is Stable. - Discharge Instructions: Scabies, Adult. - Prescriptions for Elimite 5 % Topical Cream - apply 1 application by TOPICAL route one time Wash after 12 hours.; 60 gram. Hydroxyzine HCl 25 mg Oral Tablet - take 1 tablet by ORAL route every 6 hours As needed; 30 tablet. - Medication Reconciliation Form, Thank You Letter, Antibiotic Education, Prescription Opioid Use form. - Follow up: Emergency Department; When: As needed; Reason: Worsening of condition. Follow up: Private Physician; When: 2 - 3 days; Reason: Recheck today's complaints, Continuance of care, Re-evaluation by your physician. Signatures: Gissel Villela, ZAHRA-C WEDDING DAY COORDINATOR-Bobby Guerra RN RN sg Nieto, Roman, MD MD rn Lewis, Lynsay, RN RN ll1 Corrections: (The following items were deleted from the chart) 08/24 23:53 23:35 08/25/2019 23:35 Discharged to Home. Impression: Scabies. Condition is Stable. ll1 Forms are Medication Reconciliation Form, Thank You Letter, Antibiotic Education, Prescription Opioid Use. Follow up: Emergency Department; When: As needed; Reason: Worsening of condition. Follow up: Private Physician; When: 2 - 3 days; Reason: Recheck today's complaints, Continuance of care, Re-evaluation by your physician. kb
[2019-08-25] MEDS ORDERED: hydrOXYzine HCL 25 MG TAB ONE (23:37)
[2019-08-26 01:52] VITALS: TEMP 97.6
[2019-08-26 01:54] VITALS: BP 183/124; O2SAT 100
== END 2019-08-25 23:53 | disposition home or self-care (01) ==
LOC: ER 23:01
DX: B86 Scabies (principal); I10 Essential (primary) hypertension
CPT/HCPCS: 99283

== ENCOUNTER 2019-10-08 16:27 | Inpatient (IN) | payer SELFPAY ==
[2019-10-08] MEDS ORDERED: NA CHLORIDE 0.9% 1,000 ML ONE (17:28)
[2019-10-08 17:55] LABS: Absolute Lymphocytes (CBC) 0.5 K/uL (0.7-4.9); Basophils % 0.3 % (0-1.3); Hematocrit 24.6 % (36.0-45.0); Lymphocytes % 20.8 % (15.3-44.8); MPV 8.2 fL (7.6-11.3)
[2019-10-08 18:19] LABS: ALT/SGPT 68 U/L (12-78); AST/SGOT 87 U/L (15-37); Albumin 3.5 g/dL (3.4-5.0); Alkaline Phosphatase 90 U/L (45-117); BUN Blood Urea Nitrogen 11 mg/dL (7-18); Bicarbonate 25 mmol/L (21-32); Bilirubin Total 0.3 mg/dL (0.2-1.0); Glucose Level 117 mg/dL (74-106); Potassium 3.6 mmol/L (3.5-5.1); Protein, Total 7.6 g/dL (6.4-8.2); Sodium Level 136 mmol/L (136-145)
--- OUTSIDE RECORDS SUMMARY | 2019-10-08 18:37 | XMS REPORT | Continuity of Care Document ---
:1985 Author Organization [facility] Address [address] [place] [address] Care Team Providers Name Role Phone Pat Owusu Attending Clinician Curtis Dutton Attending Clinician Problems Condition Condition Condition Status Onset Resolution Last Treating Co mments Source Name Details Category Date Date Treatment Clinician Date Coffee Coffee Disease Active [facility] ground ground 5-05 [facility] - emesis emesis 00:00: Medical 00 [place] Acute Acute Disease Active Overview: [facility] blood loss blood loss 5-05 In Vicky kes - anemia anemia 00:00: anticipat Medical 00 [facility] transfer to [facility] from [facility] to [place] on for acute blood loss anemia with evidence of upper GI bleed. GI aware and planning to perform upper endoscopy on Sunday once patient is able to be admitted. ETA unknown at this time. GI will see in the morning of admission , no need to page overnight unless more symptoms of active GI bleeding are apparent such as continuou s melena or bright red emesis and hemodynam ic instabili ty. Already received 2units at [facility] in anticipat ion for transfer. Will need to perform serial CBCs q6hs and keep NPO with IV fluids.Aung Spencer etis, [id number] Gastroent erology and Hepatolog y [facility] Allergies, Adverse Reactions, Alerts This patient has no known allergies or adverse reactions. Social History Social Habit Start Date Stop Date Quantity Comments Source Sex Assigned At [facility] Medications This patient has no known medications. Procedures This patient has no known procedures. Encounters Start End Encounter Admission Attending Care Care Encounter Source Date/Time Date/Time Type Type Clinicians Facility Department ID 2019-10-01 2019-10-01 Emergency Braydon Lee [facility] [id number] 17:49:15 20:06:00 Pat Ribera [id number] [place] [id number] [place] [id number] 2018-12-30 2018-12-30 Emergency [facility] [id number] 14:58:03 17:46:00 Myrna Ribera [id number] [place] [id number] [place] [id number] Results This patient has no known results.
--- OUTSIDE RECORDS SUMMARY | 2019-10-08 18:37 | XMS REPORT | Clinical Summary ---
:1985 Author Organization [facility] Address [address] [place] [address] Care Team Providers Name Role Phone Unavailable Primary Care Provider Unavailable Allergies Not on File Medications Not on file Active Problems Problem Noted Date Coffee ground emesis 08/18/2017 Acute blood loss anemia 08/18/2017 Overview: In anticipation for transfer to [facility] from [facility] to [place] on for acute blood loss [...] hemodynami c instability. Already received 2units at [facility] in anticipation for transfer. Will need to perform serial CBCs q6hs and keep NPO with IV fluids. Garfield Worley MD PGY6 Gastroenterology and Hepatology [employer] Social History Tobacco Use Types Packs/Day Years Used Date Never Assessed Sex Assigned at Date Recorded Not on file Job Start Date Occupation Industry Not on file Not on file Not on file Travel History Travel Start Travel End No recent travel history available. Last Filed Vital Signs Not on file Plan of Treatment Not on file Results Not on fileafter 10/07/2018
--- OUTSIDE RECORDS SUMMARY | 2019-10-08 18:38 | XMS REPORT | Summary of Care ---
:1985 Author Organization [facility] - [facility] Address [address] [place] [address] Care Team Providers Name Role Phone Pcp, Does Not Have A Primary Care Provider Reason for Visit Reason Comments ITCHING Auth/Cert Status Reason Specialty Diagnoses / Referred By Referred To Procedures Contact Contact Emergency Medicine [facility] Dept [address] [place] [phone] Fax: Encounter Details Date Type Department Care Team Description 10/01/2019 Emergency ADC-Emergency Braydon Lee, MADALYNID-19 ( Primary Dx); Department PAC Cough; [address] [place] [address] [address] [place] [address] [facility] [address] [place] [address] Allergies No Known Allergiesdocumented as of this encounter (statuses as of 10/01/2019) Medications Medication Sig Dispensed Refills Start Date End Date Status traMADOL (ULTRAM) 50 Take 1 tablet by 20 tablet 0 07/29/2016 Active mg tablet mouth every 6 (six) hours as needed for Pain (scale 7-10). hydrOXYzine (VISTARIL) Take 1 capsule by 30 capsule 0 10/01/19 20 Active 50 mg mouth 3 (three) capsuleIndications: times daily as Itching needed for Itching. famotidine (PEPCID) 40 Take 1 tablet by 30 tablet 0 10/01/2019 Active mg tabletIndications: mouth daily. Itching benzonatate 100 mg Take 1 capsule by 20 capsule 0 10/01/2019 Active capsuleIndications: mouth 3 (three) COVID-19 times daily as needed for Cough. documented as of this encounter (statuses as of 10/01/2019) Active Problems No known active problemsdocumented as of this encounter (statuses as of 10/01/2019) Social History Tobacco Use Types Packs/Day Years Used Date Never Smoker Sex Assigned at Date Recorded Not on file Job Start Date Occupation Industry Not on file Not on file Not on file Travel History Travel Start Travel End No recent travel history available. COVID-19 Exposure Response Date Recorded In the last month, have you been in contact with No / Unsure 10/01/2019 5:36 PM CDT someone who was confirmed or suspected to have Coronavirus / COVID-19? documented as of this encounter Last Filed Vital Signs Vital Sign Reading Time Taken Comments Blood Pressure 172/88 10/01/2019 5:46 PM CDT Pulse 100 10/01/2019 5:46 PM CDT Temperature 36.7 C (98 F) 10/01/2019 5:46 PM CDT Respiratory Rate 16 10/01/2019 5:46 PM CDT Oxygen Saturation 100% 10/01/2019 5:46 PM CDT Inhaled Oxygen Concentration - - Weight 88.5 kg (195 lb) 10/01/2019 5:46 PM CDT Height 160 cm (5' 3") 10/01/2019 5:46 PM CDT Body Mass Index 34.54 10/01/2019 5:46 PM CDT documented in this encounter Discharge Instructions AttachmentsThe following attachments cannot be sent through Care Everywhere. Coronavirus Disease 2019 (COVID-19) (Kazakh)documented in this encounter Plan of Treatment Health Maintenance Due Date Last Done Comments VARICELLA VACCINES (1 of 2 - 11/18/1987 2-dose childhood series) DTaP,Tdap,and Td Vaccines (1 1997 - Tdap) Depression Screening 1998 PAP SMEAR 12/18/2011 12/17/2008, 02/28/2005 INFLUENZA VACCINE (Season 12/16/2019 Ended) PNEUMOCOCCAL 0-64 YEARS Aged Out No longe r eligible based COMBINED SERIES on patient's age to complete this to [facility] documented as of this encounter Procedures Procedure Name Priority Date/Time Associated Diagnosis Comme nts COVID-19 (ID NOW STAT 10/01/2019 6:52 PM Cough Resu lts for this RAPID TESTING) CDT procedure are in the results section. CONSENT/REFUSAL FOR Routine 10/01/2019 5:35 PM DIAGNOSIS AND CDT TREATMENT documented in this encounter Results COVID-19 (ID NOW RAPID TESTING) (10/01/2019 6:52 PM CDT) SARS-CoV-2 Rapid ID Positive (A) Not Detected [facility] Specimen Swab - NASOPHARYNGEAL SWAB Narrative Performed At [facility] COVID-19 Assay is an isothermal nucleic [facility] acid amplification test intended for the qualitative detection of nucleic acid from SARS-CoV-2 viral RNA in nasopharyngeal (WINDOW CLEANER) specimens. It is used under Emergency Use Authorization (EUA) by FDA. The limit of detection (LOD) of the assay is 125 Genome Equivalents/mL. A positive result is indicative of the presence of SARS-CoV-2 RNA. Clinical correlation with patient history and other diagnostic information is necessary to determine patient infection status. A negative (Not Detected) result does not preclude SARS-CoV-2 infection. In patients with clinical symptoms and other tests that are consistent with SARS-CoV-2 infection, negative results should be treated as presumptive negative and a new specimen should be tested with alternative PCR molecular test. Invalid: Please collect a new specimen for repeat patient testing if clinically indicated. Performing Organization Address City/State/Zipcode Phone Number [facility] CLIA: [id number], [address] [place], [place] [address] documented in this encounter Visit Diagnoses Diagnosis COVID-19 - Primary Cough Itching Unspecified pruritic disorder documented in this encounter Administered Medications Medication Order MAR Action Action Date Dose Rate Site famotidine (PEPCID AC) tablet 40 Given 10/01/2019 6:43 PM CDT 4 0 mg mg 40 mg, Oral, ONCE, 1 dose, Sun10/01/19 at 1930, TANVIR hydrOXYzine (ATARAX) tablet 25 mg Given 10/01/2019 6:43 PM CDT 25 mg 25 mg, Oral, ONCE, 1 dose, Sun10/01/19 at 1945, TANVIR methylprednisolone sod succ Given 10/01/2019 6:48 PM CDT 125 mg Left Hip (SOLU-MEDROL) injection 125 mg 125 mg, Intramuscular, ONCE, 1 dose, 10/01/19 at 1930, STAT documented in this encounter
[2019-10-08 19:07] LABS: Blood Morphology Comment NOTED (NOT SEEN); Platelet Estimate ADEQ; Urine White Blood Cell Casts OK
[2019-10-08 19:08] LABS: Hypochromasia 2+
--- NOTE | 2019-10-08 19:59 | RAD REPORT ---
EXAM DESCRIPTION: RAD - Chest Single View - 10/08/2019 7:20 pm CLINICAL HISTORY: shortness of breath, history of positive COVID test COMPARISON: Two view chest June 2019 TECHNIQUE: AP portable chest image was obtained 10/08/2019 7:20 pm . FINDINGS: Lung volumes are low. Hazy opacification is seen in both lung doshi, worse on the right. Cardiac silhouette is enlarged by body habitus, portable imaging and shallow inspiration. This also a ccentuates the vasculature. No measurable pleural effusion and no pneumothorax. No acute bony abnorma lity seen. No acute aortic findings suspected. IMPRESSION: Bilateral airspace disease worse on the right. Lung pattern is consistent with COVID-19 pneumonia.
[2019-10-08] MEDS ORDERED: NA CHLORIDE 0.9% 250 ML ONE (20:27)
[2019-10-08] MEDS ORDERED: HYDROCORTISONE SUC 100 MG INJ ONE (20:57)
[2019-10-08] MEDS ORDERED: ACETAMINOPHEN 325 MG TABLET ONE (20:57)
[2019-10-08] MEDS ORDERED: DIPHENHYDRAMINE 50 MG/ML VIAL ONE (20:57)
--- NOTE | 2019-10-08 21:00 | ER ---
Nurse's Notes [facility] Name: Joyce Mera Age: 33 yrs Sex: Female : 1985 Arrival Date: 10/08/2019 Time: 16:42 Bed 20 Private MD: Diagnosis: Viral pneumonia, unspecified;Anemia Presentation: 10/07 16:54 Chief complaint: Patient states: "I tested positive for COVID last Sunday, last vc night I started having trouble breathing and it hurts every time I take in a deep breath.". Coronavirus screen: Surgical mask placed on patient. Patient moved to private room, placed in contact and droplet isolation with eye protection until further assessment. Patient reports a cough. Patient reports shortness of breath or difficulty breathing. Prior COVID test collected on: last sunday. Ebola Screen: No symptoms or risks identified at this time. Initial Sepsis Screen: Does the patient meet any 2 criteria? No. Patient's initial sepsis screen is negative. Does the patient have a suspected source of infection? Yes: Other: COVID positive. Risk Assessment: Do you want to hurt yourself or someone else? Patient reports no desire to harm self or others. Onset of symptoms was October 07, 2019. 16:54 Method Of Arrival: EMS: [facility] vc 16:54 Acuity: ALICIA 3 vc Triage Assessment: 17:00 Respiratory: Reports shortness of breath at rest cough that is dry, pain with cough the vc patient has moderate shortness of breath. 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 - Social history:: Smoking status: Patient denies any tobacco usage or history of. Screenin:59 Abuse screen: Denies threats or abuse. Nutritional screening: No deficits noted. vc Tuberculosis screening: No symptoms or risk factors identified. Fall Risk None identified. Assessment: 17:00 General: Appears in no apparent distress. uncomfortable, ill, Behavior is cooperative, vc appropriate for age, anxious. Pain: Complains of pain in chest Pain does not radiate. Pain currently is 10 out of 10 on a pain scale. Quality of pain is described as sharp, Pain began 1 day ago. Aggravated by coughing. Neuro: Level of Consciousness is awake, obeys commands, lethargic, Oriented to person, place, time, situation, Appropriate for age. Cardiovascular: Capillary refill < 3 seconds Patient's skin is warm and dry. Rhythm is regular. Respiratory: Airway is patent Respiratory effort is even, labored, shallow, Respiratory pattern is regular, symmetrical. GI: No signs and/or symptoms were reported involving the gastrointestinal system. : No signs and/or symptoms were reported regarding the genitourinary system. EENT: No signs and/or symptoms were reported regarding the EENT system. 18:00 Reassessment: Patient appears in no apparent distress at this time. No changes from ll1 previously documented assessment. Patient and/or family updated on plan of care and expected duration. Pain level reassessed. Patient is alert, oriented x 3, equal unlabored respirations, skin warm/dry/pink. 19:00 Reassessment: Patient appears in no apparent distress at this time. No changes from ll1 previously documented assessment. Patient and/or family updated on plan of care and expected duration. Pain level reassessed. Patient is alert, oriented x 3, equal unlabored respirations, skin warm/dry/pink. 21:15 Reassessment: Patient appears in no apparent distress at this time. No changes from fu previously documented assessment. Patient and/or family updated on plan of care and expected duration. Pain level reassessed. Patient is alert, oriented x 3, equal unlabored respirations, skin warm/dry/pink. Blood trans fusion started after obtaining consent from patient. 10/08 07:52 Respiratory: fu Vital Signs: 10/07 16:54 BP 136 / 62; Pulse 88; Resp 20; Temp 97.8; Pulse Ox 99% on R/A; Weight 88.45 kg; Height vc 5 ft. 3 in. (160.02 cm); 18:00 BP 155 / 90; Pulse 61; Resp 18; Pulse Ox 98% ; ll1 19:05 BP 145 / 86; Pulse 63; Resp 18; Pulse Ox 100% ; ll1 16:54 Body Mass Index 34.54 (88.45 kg, 160.02 cm) ED Course: 16:42 Patient arrived in ED. ss 16:43 Lalit Kasper PA is PHCP. [facility] 16:43 Aman Frazier MD is Attending Physician. [facility] 16:54 Nimisha Waterman, RN is Primary Nurse. vc 16:58 Triage completed. vc 17:00 Arm band placed on left wrist. vc 17:32 Patient has correct armband on for positive identification. Bed in low position. Pulse vc ox on. NIBP on. 19:09 Primary Nurse role handed off by Nimisha Waterman RN 19:09 Nain Johnson, REJI is Primary Nurse. fu 19:10 No provider procedures requiring assistance completed. X-ray(s) taken. IV is intact, fu with fluids infusing freely. 19:20 Chest Single View XRAY In Process Unspecified. EDMS 20:15 Consent for blood and/or blood product transfusion explained by staff, signed by fu patient. 20:58 Jason Lua is Hospitalizing Provider. [facility] 23:00 Patient admitted, IV remains in place. fu Administered Medications: 17:43 Drug: NS 0.9% 1000 ml Route: IV; Rate: 1 bolus; Site: right antecubital; 19:00 Follow up: Response: No adverse reaction fu 20:55 Drug: Tylenol 650 mg Route: PO; fu 20:56 Drug: Solu-CORTEF 50 mg Route: IVP; Site: right antecubital; fu 20:59 Drug: Benadryl 12.5 mg Route: IVP; Site: right antecubital; fu Outcome: 20:59 Decision to Hospitalize by Provider. [facility] 23:50 Admitted to Tele accompanied by nurse, room 417, Report called to REJI Mendoza 23:50 Condition: stable 23:50 Discharge instructions given to patient, Instructed on the need for admit. 23:58 Patient left the ED. ll1 Signatures: Dispatcher [employer] EDMS Lalit Kasper PA PA [facility] Ayse Ayers RN RN Nain Johnson RN RN Nimisha Waterman, Gurwinder Espino RN, vc, RN RN ll1 Corrections: (The following items were deleted from the chart) 10/08 07:55 07:52 Admitted to Tele accompanied by nurse, room 417, Report called to REJI Mendoza [facility] 07:52 Condition: stable fu fu 07:55 07:52 Discharge instructions given to patient, Instructed on the need for admit, fu fu
--- NOTE | 2019-10-08 21:00 | EDPHYS ---
Physician Documentation [facility] Name: Joyce Mera Age: 33 yrs Sex: Female : 1985 Arrival Date: 10/08/2019 Time: 16:42 Bed 20 Private MD: ED Physician Aman Frazier HPI: 10/07 17:04 This 33 yrs old Female presents to ER via EMS with complaints of Shortness Of jmm Breath. 17:04 The patient has shortness of breath at rest, with light activity. Onset: The jmm symptoms/episode began/occurred gradually, 2 day(s) ago. Duration: The symptoms are continuous. The patient's shortness of breath is aggravated by nothing, is alleviated by nothing. This is a 33 year old female with a history of anemia, htn, that presents to the ED with complaints of shortness of breath, weakness. Patient was recently diagnosed with COVID approximately 1 week ago. . 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 - Social history:: Smoking status: Patient denies any tobacco usage or history of. ROS: 17:04 Abdomen/GI: Negative for abdominal pain, nausea, vomiting, diarrhea, and constipation. jmm 17:04 Constitutional: Positive for body aches, chills. 17:04 Respiratory: Positive for cough, shortness of breath. 17:04 All other systems are negative. Exam: 17:04 Constitutional: This is a well developed, well nourished patient who is awake, alert, jmm and in no acute distress. Head/Face: atraumatic. Eyes: EOMI, no conjunctival erythema appreciated ENT: Moist Mucus Membranes Neck: Trachea midline, Supple Chest/axilla: Normal chest wall appearance and motion. Cardiovascular: Regular rate and rhythm. No edema appreciated Respiratory: Normal respirations, no respiratory distress appreciated Abdomen/GI: Non distended, soft Back: Normal ROM Skin: General appearance color normal MS/ Extremity: Moves all extremities, no obvious deformities appreciated, no edema noted to the lower extremities Neuro: Awake and alert, normal gait Psych: Behavior is normal, Mood is normal, Patient is cooperative and pleasant Vital Signs: 16:54 BP 136 / 62; Pulse 88; Resp 20; Temp 97.8; Pulse Ox 99% on R/A; Weight 88.45 kg; Height vc 5 ft. 3 in. (160.02 cm); 18:00 BP 155 / 90; Pulse 61; Resp 18; Pulse Ox 98% ; ll1 19:05 BP 145 / 86; Pulse 63; Resp 18; Pulse Ox 100% ; ll1 16:54 Body Mass Index 34.54 (88.45 kg, 160.02 cm) vc MDM: 17:[address] Patient medically screened. [facility] 20:53 Data reviewed: vital signs, nurses notes. Counseling: I had a detailed discussion with [facility] the patient and/or guardian regarding: the historical points, exam findings, and any diagnostic results supporting the discharge/admit diagnosis, lab results, radiology results, the need for further work-up and treatment in the hospital. ED course: I discussed the patient with Dr. Lua whom accepted the patient for admission. . 10/07 17:06 Order name: CBC with Diff; Complete Time: 19:[address] [facility] 10/07 17:06 Order name: CMP; Complete Time: 18:[address] [facility] 10/07 17:06 Order name: Procalcitonin; Complete Time: 20:[address] [facility] 10/07 17:06 Order name: Lactate; Complete Time: 18:[address] [facility] 10/07 18:32 Order name: Type And Screen [facility] 10/07 19:07 Order name: CBC Smear Scan; Complete Time: 19:17 [facility] 10/07 18:32 Order name: Chest Single View XRAY; Complete Time: 20:[address] [facility] 10/07 19:58 Order name: Packed RBC Leukored [facility] 10/07 17:06 Order name: Saline Lock; Complete Time: 17:[address] [facility] Administered Medications: 17:43 Drug: NS 0.9% 1000 ml Route: IV; Rate: 1 bolus; Site: right antecubital; ss 19:00 Follow up: Response: No adverse reaction fu 20:55 Drug: Tylenol 650 mg Route: PO; fu 20:56 Drug: Solu-CORTEF 50 mg Route: IVP; Site: right antecubital; fu 20:59 Drug: Benadryl 12.5 mg Route: IVP; Site: right antecubital; fu Disposition: 10/08/19 20:59 Hospitalization ordered by Jason Lua for Observation. Preliminary diagnosis are Viral pneumonia, unspecified, Anemia. - Bed requested for Telemetry/MedSurg (observation). - Status is Observation. ll1 - Condition is Stable. - Problem is new. - Symptoms are unchanged. Addendum: 10/11/2019 07:21 Co-signature as Attending Physician, Aman Frazier MD. r n Signatures: Dispatcher [employer] EDWY Lalit Kasper PA PA Aman Ivory MD MD rn Smirch, Shelby, RN RN lexi Cote, [facility] Nain Johnson RN Nimisha Dowell RN Gurwinder Espino vc, RN RN ll1 Corrections: (The following items were deleted from the chart) 10/07 19:57 19:28 PACKED RBC LEUKORED -1+BB.LAB.BRZ ordered. [facility] EDWY 19:57 19:28 ABO/RH typing ordered. [facility] 19:57 19:28 Antibody Screen ordered. [facility] 22:58 20:59 Hospitalization Ordered by Jason Lua for Observation. Preliminary diagnosis mt is Viral pneumonia, unspecified; Anemia. Bed requested for Telemetry/MedSurg (observation). Status is Observation. Condition is Stable. Problem is new. Symptoms are unchanged. [facility] 23:58 22:58 10/08/2019 20:59 Hospitalization Ordered by Jason Lua for Observation. ll1 Preliminary diagnosis is Viral pneumonia, unspecified; Anemia. Bed requested for Telemetry/MedSurg (observation). Status is Observation. Condition is Stable. Problem is new. Symptoms are unchanged. mt
--- NOTE | 2019-10-08 22:28 | P.HP ---
Certification for Inpatient Patient admitted to: Observation With expected LOS: <2 Midnights Practitioner: I am a practitioner with admitting privileges, knowledge of patient current condition, hospital course, and medical plan of care. Services: Services provided to patient in accordance with Admission requirements found in Title 42 Section 412.3 of the Code of Federal Regulations Patient History Date of Service: 10/08/19 Reason for admission: Generalize weakness and fatigue History of Present Illness: 33-year-old woman with a history of iron-deficiency present to the emergency department with a complaint of progressive weakness and fatigue, worse with exertion. She also report generalized body aches, nonproductive cough and diarrhea. She has tested positive for COVID 19 1 week ago. Her hemoglobin in the ED is 7.3. Patient reports menorrhalgia which could be responsible for her iron deficiency anemia. She denies shortness of breath and her oxygen saturations 100% on room air. Her pro calcitonin is elevated to 200. Her chest x-ray shows bilateral infiltrates consistent with viral pneumonia. Patient is hospitalalized for further management. Allergies No Known Allergies Allergy (Unverified 01/16/16 20:32) - Past Medical/Surgical History -: Iron deficiency anemia -: hypertension -: Anxiety -: section - Family History Family History: Reviewed- Non-Contributory - Social History Smoking Status: Never smoker Alcohol use: No CD- Drugs: No Review of Systems Other: Except as documented, all other systems reviewed and negative. Physical Examination - Physical Exam General: Alert, In no apparent distress HEENT: Normocephalic, Mucous membr. moist/pink Neck: Supple, JVD not distended Respiratory: Clear to auscultation bilaterally, Normal air movement Cardiovascular: No edema, Regular rate/rhythm, Normal S1 S2 Capillary refill: <2 Seconds Gastrointestinal: Normal bowel sounds, Soft and benign, Non-distended, No tenderness Musculoskeletal: No swelling, No erythema Integumentary: No rashes Neurological: Normal speech, Normal strength at 5/5 x4 extr - Studies Laboratory Data (last 24 hrs) 10/08/19 17:20: Sodium 136, Potassium 3.6, BUN 11, Creatinine 0.73, Glucose 117 H, Total Bilirubin 0.3, AST 87 H, ALT 68, Alkaline Phosphatase 90 10/08/19 17:20: WBC 2.4 L, Hgb 7.3 L*, Hct 24.6 L, Plt Count 215 Assessment and Plan - Problems (Diagnosis) (1) Viral pneumonia Current Visit: Yes Status: Acute (2) COVID-19 Current Visit: Yes Status: Acute (3) Iron deficiency anemia Current Visit: Yes Status: Acute - Plan Patient has risk factors for progression of COVID pneumonia. Place under observation. Supplemental oxygen as needed Supportive measures with IV fluid. Transfuse 1 unit PRBC. Bronchodilators p.r.n. Droplet isolation. Antipyretics and antitussives as needed. - Advance Directives Does patient have a Living Will: No Does patient have a Durable POA for Healthcare: No
[2019-10-09] MEDS: ACETAMINOPHEN 500 MG TAB PO PRN ×3 (00:47→19:53)
[2019-10-09] MEDS: ONDANSETRON 4 MG/2 ML VIAL IV PRN ×3 (00:47→18:25)
[2019-10-09] MEDS: BENZONATATE 100 MG CAP PO PRN ×3 (00:48→19:30)
[2019-10-09] MEDS: NA CHLORIDE 0.9% 1,000 ML IV SCH ×2 (00:48→08:03)
[2019-10-09] MEDS ORDERED: NA CHLORIDE 0.9% 250 ML ONE (00:54)
[2019-10-09] MEDS ORDERED: NA CHLORIDE 0.9% 250 ML IV ONE (01:38)
[2019-10-09 02:04] VITALS: BMI 33.7
[2019-10-09 02:06] LABS: Urine Appearance CLEAR; Urine Bilirubin NEGATIVE (NEG); Urine Blood TRACE (NEG); Urine Color YELLOW; Urine Glucose NEGATIVE (NEG); Urine Protein NEGATIVE (NEG); Urine Urobilinogen 0.2 mg/dL (0.2-1.0); Urine pH 5.5 (5.0-7.0)
[2019-10-09 02:42] LABS: Urine Microscopic Reflex ORDER UMIC
[2019-10-09 03:12] LABS: Urine Bacteria <20 /HPF (<20); Urine Culture Reflex Order REFLEXED; Urine RBC <5 /HPF (NONE SEEN)
[2019-10-09] MEDS ORDERED: HYDRALAZINE HCL 20 MG/ML VIAL IV ONE (05:00)
[2019-10-09 05:18] LABS: Absolute Lymphocytes (CBC) 0.6 K/uL (0.7-4.9); Basophils % 0.2 % (0-1.3); Hematocrit 29.3 % (36.0-45.0); Lymphocytes % 17.1 % (15.3-44.8); MPV 8.4 fL (7.6-11.3); RBC Red Blood Cell Count 4.09 M/uL (3.86-4.86)
[2019-10-09 05:39] LABS: BUN Blood Urea Nitrogen 10 mg/dL (7-18); Bicarbonate 23 mmol/L (21-32); Glucose Level 112 mg/dL (74-106); Magnesium 2.3 mg/dL (1.8-2.4); Phosphorus 3.3 mg/dL (2.5-4.9); Potassium 3.5 mmol/L (3.5-5.1); Sodium Level 139 mmol/L (136-145)
[2019-10-09] MEDS: TRAMADOL HCL 50 MG TAB PO PRN ×2 (08:02→17:05)
[2019-10-09] MEDS ORDERED: POTASSIUM CL SA 10 MEQ TAB PO ONE (09:00)
[2019-10-09] MEDS ORDERED: LABETALOL 20 MG/4ML SYRINGE IV PRN (11:22)
[2019-10-09] MEDS ORDERED: FUROSEMIDE 20 MG/ 2ML VIAL IV ONE (18:58)
[2019-10-09 19:53] VITALS: TEMP 99.9
[2019-10-09 20:26] VITALS: BP 167/95; O2SAT 94
[2019-10-09] MEDS ORDERED: predniSONE 20 MG TAB PO SCH (21:00)
[2019-10-09] MEDS ORDERED: SPIRONOLACTONE 25 MG TABLET PO SCH (21:00)
--- NOTE | 2019-10-10 00:55 | DS ---
Date of Discharge: 10/09/2019 Consultants: Dr. Fernandes, pulmonology. Discharge Diagnoses: 1.Acute blood loss anemia. 2.Iron-deficiency anemia secondary to menorrhagia. 3.Menorrhagia. 4.Coronavirus disease 2019 pneumonia. Hospital Course: Patient is a 33-year-old female with past medical history of iron deficiency, comes into the ER for progressive weakness and fatigue. She was tested positive for COVID 1 week prior to admission. In the ER, her hemoglobin was 7.3. Her baseline is around 6.7. Patient does report men orrhagia which is likely the result of her iron-deficiency anemia. Patient did not have any shortnes s of breath. Chest x-ray showed bilateral infiltrates consistent with viral pneumonia. Patient was admitted for further evaluation. She was given blood transfusion. Her electrolytes remained stable. Lactate was negative. Her hemoglobin improved to 9. She received 2 units of PRBCs and Dr. Estephania arteaga with Pulmonology was consulted. He recommended the patient to be discharged he did not feel there was any need for this patient to remain hospitalized. She had no respiratory symptoms. No shortness of breath. Did have some dry cough. Patient will need to be started on control pills for her menorrhagia, which is the cause of her anemia. She states that she has never seen a primary care ph ysician or an Ob-Dairy Associate regarding her menorrhagia. This has been ongoing for several years. Previous C T scan from 2019 does not show any fibroids. Patient understands that she needs to follow up with OB /PROSTHETIST as soon as possible within the next week and to have her hemoglobin level recheck. She is to st art on the control pills after she has recovered from COVID-19. She understands that con trol pills can cause hypercoagulable state. She does not smoke and this should be avoided during an active COVID-19 infection. Patient was given dose of dose of Deltasone 10 mg p.o. b.i.d. for 1 week as recommended by Pulmonology. No antibiotics necessary. The patient not a candidate for convalesce nt plasma or Remdesivir as she has no pulmonary symptoms. Patient to establish care with primary car e physician in the next week. Establish care with [facility] in 1-2 weeks. Return to ER for worsening c ondition. Continue self isolation 14 days. Do not start Sprintec until recovered from COVID-19 and have a negative COVID-19 test. Return to ER for worsening condition. Diet: Regular. Activity: As tolerated. Physical Examination: Vital Signs: Temperature 99.1, heart rate 78, blood pressure 168/96, respirations 18, O2 96% on room air. General: Does not appear to be any acute distress. Mildly ill-appearing female, obese, BMI 33. Respiratory: Not using any accessory muscles. Does not appear to be short of breath with talking Neuro: Moves all 4 extremities. Cranial nerves 3-12 intact grossly. Based on the current COVID-19 outbreak, current CDC state local and [facility] guidance for Social distancin g and self isolation of COVID positive patient, the patient was identified in the need of Tele-health Service. Patient was offered Tele-health Medicine services. Risks, benefits and alternatives throu gh this virtual visit were explained to the patient and the patient consented to this modality of car e. Visit was carried out using the secure line. All parties in the room were identified and approve d by the patient prior to the consult. No technical issues were experienced. Level of care equivale nt in-person care was achieved. Patient was seen virtually. Physical exam completed with assistance from the bedside RN. Both the a ssessment and plan based on chart review, HPI and physical examination findings gathered during the e ncounter. Every effort has been made to make this encounter comprehensive to the best of our abiliti es. Total time spent discharging patient was 47 minutes. JASIEL Voice ID: [id number] Report ID: [id number]
== END 2019-10-09 21:30 | disposition home or self-care (01) | DRG 177 ==
LOC: ER 16:27 → ERHOLD 22:31 → 4TH 23:43 → OBSVTOIN 10-09 07:50
PROVIDERS: ADMIT Internal Medicine; ATTEND Family Medicine
PROC: 8E0ZXY6 Isolation (ICD-10-PCS; principal; 2019-10-09)
PROC: 30233N1 Transfusion of Nonautologous Red Blood Cells into Peripheral Vein, Percutaneous Approach (ICD-10-PCS; 2019-10-09)
DX: U07.1 COVID-19 (principal); J12.89 Other viral pneumonia; D62 Acute posthemorrhagic anemia; D50.9 Iron deficiency anemia, unspecified; N92.0 Excessive and frequent menstruation with regular cycle; I10 Essential (primary) hypertension
CPT/HCPCS: 36415; 71045; 80048; 80053; 81003; 81015; 83605; 83735; 84100; 84145; 84703; 85025; 86850; 86900; 86901; 87086; 87088; 94760; 96374; 96375; 99285; G0378; J0360; J1200; J1720; J1940; J2405; J7030; J7512; P9016

== ENCOUNTER 2019-12-04 03:45 | Emergency (ER) | payer SELFPAY ==
--- OUTSIDE RECORDS SUMMARY | 2019-12-04 03:46 | XMS REPORT | Clinical Summary ---
:1985 Author Organization [facility] Address [address] [place] [address] Care Team Providers Name Role Phone Unavailable Primary Care Provider Unavailable Allergies Not on File Medications Not on file Active Problems Problem Noted Date Coffee ground emesis 08/18/2017 Acute blood loss anemia 08/18/2017 Overview: In anticipation for transfer to [facility] from [facility] to [place] on for acute blood loss anemia with [...] hemodynami c instability. Already received 2units at [facility] in anticipation for transfer. Will need to perform serial CBCs q6hs and keep NPO with IV fluids. Garfield Worley MD PGY6 Gastroenterology and Hepatology [facility] Social History Tobacco Use Types Packs/Day Years Used Date Never Assessed Sex Assigned at Date Recorded Not on file Job Start Date Occupation Industry Not on file Not on file Not on file Travel History Travel Start Travel End No recent travel history available. Last Filed Vital Signs Not on file Plan of Treatment Not on file Results Not on fileafter 12/03/2018
--- OUTSIDE RECORDS SUMMARY | 2019-12-04 03:46 | XMS REPORT | Continuity of Care Document ---
:1985 Author Organization [facility] Address [address] [place] [address] Care Team Providers Name Role Phone Pat Owusu Attending Clinician Curtis Dutton Attending Clinician Problems Condition Condition Condition Status Onset Resolution Last Treating Co mments Source Name Details Category Date Date Treatment Clinician Date Coffee Coffee Disease Active [facility] ground ground 5-05 [facility] - emesis emesis 00:00: Medical 00 [place] Acute Acute Disease Active Overview: [facility] blood loss blood loss 5-05 In [facility]icky k[facility] - anemia anemia 00:00: anticipat Medical 00 [facility] transfer to [facility] from [facility] to [place] on for acute blood loss anemia with [...] ic instabili ty. Already received 2units at [facility] in anticipat ion for transfer. Will need to perform serial CBCs q6hs and keep NPO with IV fluids.Aung Spencer etis, [id number] Gastroent erology and Hepatolog y [facility] Allergies, Adverse Reactions, Alerts This patient has no known allergies or adverse reactions. Social History Social Habit Start Date Stop Date Quantity Comments Source Sex Assigned At [facility] Medications This patient has no known medications. Procedures This patient has no known procedures. Encounters Start End Encounter Admission Attending Care Care Encounter Source Date/Time Date/Time Type Type Clinicians Facility Department ID 2019-10-01 2019-10-01 Emergency Braydon Lee [facility] [id number] 17:49:15 20:06:00 Pat Ribera [id number] [place] [id number] [place] [id number] 2018-12-30 2018-12-30 Emergency [facility] [id number] 14:58:03 17:46:00 Myrna Ribera [id number] [place] [employer] [id number] [place] [id number] Results This patient has no known results.
[2019-12-04 05:40] LABS: Barbiturates NEGATIVE (NEGATIVE); Benzodiazepines NEGATIVE (NEGATIVE); Cocaine NEGATIVE (NEGATIVE); METHAMPHETAM NEGATIVE (NEGATIVE); Methadone NEGATIVE (NEGATIVE); Opiates NEGATIVE (NEGATIVE); Phencyclidine NEGATIVE (NEGATIVE); THC Cannibis NEGATIVE (NEGATIVE)
[2019-12-04] MEDS ORDERED: hydrOXYzine HCL 25 MG TAB ONE (06:44)
[2019-12-04] MEDS ORDERED: FAMOTIDINE 20 MG TAB ONE (06:45)
[2019-12-04 06:53] LABS: Absolute Lymphocytes (CBC) 1.4 K/uL (0.7-4.9); Basophils % 0.9 % (0-1.3); Hematocrit 25.7 % (36.0-45.0); Lymphocytes % 34.3 % (15.3-44.8); MPV 8.3 fL (7.6-11.3); RBC Red Blood Cell Count 3.64 M/uL (3.86-4.86)
[2019-12-04 07:05] LABS: Albumin 3.7 g/dL (3.4-5.0); Bilirubin Direct 0.1 mg/dL (0-0.2); Bilirubin Total 0.8 mg/dL (0.2-1.0); Potassium 3.8 mmol/L (3.5-5.1); Protein, Total 7.5 g/dL (6.4-8.2)
[2019-12-04] MEDS ORDERED: METOPROLOL TAR 25 MG TAB ONE (07:25)
--- NOTE | 2019-12-04 08:07 | EDPHYS ---
Physician Documentation [facility] Name: Joyce Mera Age: 34 yrs Sex: Female : 1985 Arrival Date: 12/04/2019 Time: 03:47 Bed 4 Private MD: ED Physician Shreyas Mera HPI: 12/03 05:27 This 34 yrs old Female presents to ER via Ambulatory with complaints of mh7 Itching. 05:29 generalized itching. Onset: The symptoms/episode began/occurred today. Severity of mh7 symptoms: At their worst the symptoms were moderate today, in the emergency department the symptoms have improved moderately. The patient has experienced similar episodes in the past, a few times. Patient reports having generalized itching that started around midnight. Denies any rash, change in soaps/detergents, new foods, medications, recent travel, sick contacts, nausea, vomiting, abdominal pain, fever, or pain anywhere. She took Benadryl which helped some. She states that this has occurred intermittently for the past 6 months.. Historical: - Allergies: 03:52 No Known Allergies; jb4 - Home Meds: 03:52 None [Active]; jb4 - PMHx: 03:52 Anemia; Anxiety; Hypertension; jb4 - PSHx: 03:52 ; jb4 - Immunization history:: Adult Immunizations up to date. - Social history:: Smoking status: Patient denies any tobacco usage or history of. Patient uses alcohol, weekly. Patient/guardian denies using street drugs. ROS: 05:29 Constitutional: Negative for fever, chills, and weight loss, Eyes: Negative for injury, mh7 pain, redness, and discharge, ENT: Negative for injury, pain, and discharge, Neck: Negative for injury, pain, and swelling, Cardiovascular: Negative for chest pain, palpitations, and edema, Respiratory: Negative for shortness of breath, cough, wheezing, and pleuritic chest pain, Abdomen/GI: Negative for abdominal pain, nausea, vomiting, diarrhea, and constipation, Back: Negative for injury and pain, : Negative for injury, bleeding, discharge, and swelling, MS/Extremity: Negative for injury and deformity, Neuro: Negative for headache, weakness, numbness, tingling, and seizure, Psych: Negative for depression, anxiety, suicide ideation, homicidal ideation, and hallucinations, Endocrine: Negative for neck swelling, polydipsia, polyuria, polyphagia, and marked weight changes, Hematologic/Lymphatic: Negative for swollen nodes, abnormal bleeding, and unusual bruising. Exam: 05:29 Constitutional: This is a well developed, well nourished patient who is awake, alert, mh7 and in no acute distress. Head/Face: Normocephalic, atraumatic. Eyes: Pupils equal round and reactive to light, extra-ocular motions intact. Lids and lashes normal. Conjunctiva and sclera are non-icteric and not injected. Cornea within normal limits. Periorbital areas with no swelling, redness, or edema. ENT: Nares patent. No nasal discharge, no septal abnormalities noted. Tympanic membranes are normal and external auditory canals are clear. Oropharynx with no redness, swelling, or masses, exudates, or evidence of obstruction, uvula midline. Mucous membranes moist. Neck: Trachea midline, no thyromegaly or masses palpated, and no cervical lymphadenopathy. Supple, full range of motion without nuchal rigidity, or vertebral point tenderness. No Meningismus. Chest/axilla: Normal chest wall appearance and motion. Nontender with no deformity. No lesions are appreciated. Cardiovascular: Regular rate and rhythm with a normal S1 and S2. No gallops, murmurs, or rubs. Normal PMI, no JVD. No pulse deficits. Respiratory: Lungs have equal breath sounds bilaterally, clear to auscultation and percussion. No rales, rhonchi or wheezes noted. No increased work of breathing, no retractions or nasal flaring. Abdomen/GI: Soft, non-tender, with normal bowel sounds. No distension or tympany. No guarding or rebound. No evidence of tenderness throughout. Back: No spinal tenderness. No costovertebral tenderness. Full range of motion. Skin: Warm, dry with normal turgor. Normal color with no rashes, no lesions, and no evidence of cellulitis. MS/ Extremity: Pulses equal, no cyanosis. Neurovascular intact. Full, normal range of motion. Neuro: Awake and alert, GCS 15, oriented to person, place, time, and situation. Cranial nerves II-XII grossly intact. Motor strength 5/5 in all extremities. Sensory grossly intact. Cerebellar exam normal. Normal gait. Psych: Awake, alert, with orientation to person, place and time. Behavior, mood, and affect are within normal limits. Vital Signs: 03:52 BP 196 / 127 LA Sitting (auto/reg); Pulse 75; Resp 16; Temp 98.2(O); Pulse Ox 100% on jb4 R/A; Weight 88.45 kg (R); Height 5 ft. 3 in. (160.02 cm); Pain 0/10; 04:05 BP 218 / 136 (man/); jb4 05:00 BP 195 / 127; Pulse 79; Resp 16; Pulse Ox 100% on R/A; jb4 06:00 BP 198 / 118; Pulse 69; Resp 16; Pulse Ox 100% on R/A; jb4 07:23 BP 209 / 130; Pulse 68; Resp 18; Pulse Ox 100% on R/A; em 08:13 BP 192 / 124; Pulse 75; Resp 18; Pulse Ox 100% on R/A; Pain 0/10; em 08:59 BP 174 / 120; Pulse 82; Resp 18; Pulse Ox 99% on R/A; em 03:52 Body Mass Index 34.54 (88.45 kg, 160.02 cm) jb4 MDM: 05:01 Patient medically screened. [facility] 07:11 Differential Diagnosis Pruritus, Iron Deficiency Anemia, Uremia. Data reviewed: vital [facility] signs, nurses notes, old medical records, lab test result(s), CBC, electrolytes, urinalysis. Data interpreted: Pulse oximetry: on room air is 100 %. Interpretation: normal. Transition of care: After a detail discussion of the patient's case, care is transferred to Shreyas Mera MD. 08:18 Test interpretation: by ED physician or midlevel provider: ECG. Counseling: I had a anselmo detailed discussion with the patient and/or guardian regarding: the historical points, exam findings, and any diagnostic results supporting the discharge/admit diagnosis, the presence of at least one elevated blood pressure reading (>120/80) during this emergency department visit, lab results, the need for outpatient follow up, for definitive care, a manager financial reporting. Medication response: lopressor, norvasc, lisinopril and clonidine. 12/03 05:08 Order name: UDS; Complete Time: 06:15 mh7 12/03 05:25 Order name: CBC with Diff mh7 12/03 05:25 Order name: Basic Metabolic Panel; Complete Time: 07:07 7 12/03 05:25 Order name: LFT's; Complete Time: 07:07 [facility] 12/03 08:37 Order name: Manual Differential EDMS 12/03 05:08 Order name: Urine Test (obtain specimen); Complete Time: 05:19 7 12/03 05:25 Order name: Urine Dipstick-Ancillary (obtain specimen); Complete Time: 06:30 mh7 Administered Medications: 06:35 Drug: hydrOXYzine 50 mg Route: PO; jb4 08:13 Follow up: Response: No adverse reaction em 06:35 Drug: Pepcid 20 mg Route: PO; jb4 08:13 Follow up: Response: No adverse reaction em 07:19 Drug: Metoprolol 12.5 mg Route: PO; em 08:10 Follow up: Response: No adverse reaction; Blood pressure is unchanged em 08:10 CANCELLED (Duplicate Order): Lisinopril 5 mg PO once anselmo 08:12 Drug: Norvasc 10 mg Route: PO; em 09:00 Follow up: Response: No adverse reaction em 08:12 Drug: cloNIDine 0.1 mg Route: PO; em 09:00 Follow up: Response: No adverse reaction em 08:25 Drug: Lisinopril 5 mg Route: PO; em 09:00 Follow up: Response: No adverse reaction em Disposition: 12/04/19 08:07 Discharged to Home. Impression: Anemia, unspecified, Essential (primary) hypertension. - Condition is Stable. - Discharge Instructions: Iron Deficiency Anemia, Adult, Anemia, Nonspecific, Hypertension, Hypertension, [id number], How to Take Your Blood Pressure, [id number], Iron Deficiency Anemia, Adult, [id number]. - Prescriptions for Ferrous Sulfate 325 mg (65 mg Iron) Oral Tablet - take 1 tablet by ORAL route every 8 hours; 90 tablet. Hydroxyzine HCl 25 mg Oral Tablet - take 1 tablet by ORAL route every 6 hours As needed; 12 tablet. Lotrel 5- 10 mg Oral capsule - take 1 capsule by ORAL route once daily; 20 capsule. - Medication Reconciliation Form, Thank You Letter, Antibiotic Education, Prescription Opioid Use, Work release form form. - Follow up: Alden Shore MD; When: 2 - 3 days; Reason: Recheck today's complaints, Continuance of care, Re-evaluation by your physician. Follow up: Jackson Hansen MD; When: 2 - 3 days; Reason: Recheck today's complaints, Continuance of care, Re-evaluation by your physician. - Problem is new. - Symptoms have improved. Signatures: Dispatcher [employer] Shreyas Arellano MD MD cha Munoz, Edgar, RN RN em Ermias Adames RN RN jb4 Tima Solano MD MD mh7 Corrections: (The following items were deleted from the chart) 08:10 08:09 Lisinopril 5 mg PO once ordered. anselmo briones 09:05 08:07 12/04/2019 08:07 Discharged to Home. Impression: Anemia, unspecified; Essential em (primary) hypertension. Condition is Stable. Forms are Medication Reconciliation Form, Thank You Letter, Antibiotic Education, Prescription Opioid Use. Follow up: Alden Shore; When: 2 - 3 days; Reason: Recheck today's complaints, Continuance of care, Re-evaluation by your physician. Follow up: Jackson Hansen; When: 2 - 3 days; Reason: Recheck today's complaints, Continuance of care, Re-evaluation by your physician. Problem is new. Symptoms have improved. anselmo
--- NOTE | 2019-12-04 08:07 | ER ---
Nurse's Notes [facility] Name: Joyce Mera Age: 34 yrs Sex: Female : 1985 Arrival Date: 12/04/2019 Time: 03:47 Bed 4 Private MD: Diagnosis: Anemia, unspecified;Essential (primary) hypertension Presentation: 12/03 03:52 Chief complaint: Patient states: I have been itching for the past 4 hours and I can't jb4 stop, I tried benadryl and it wont stop. 03:52 Coronavirus screen: Client denies travel out of the [place] in the last 14 days. At this jb4 time, the client does not indicate any symptoms associated with coronavirus-19. Ebola Screen: No symptoms or risks identified at this time. Initial Sepsis Screen: Does the patient meet any 2 criteria? No. Patient's initial sepsis screen is negative. Does the patient have a suspected source of infection? No. Patient's initial sepsis screen is negative. Risk Assessment: Do you want to hurt yourself or someone else? Patient reports no desire to harm self or others. Onset of symptoms was December 04, 2019. 03:52 Method Of Arrival: Ambulatory jb4 03:52 Acuity: ALICIA 2 jb4 Historical: - Allergies: 03:52 No Known Allergies; jb4 - Home Meds: 03:52 None [Active]; jb4 - PMHx: 03:52 Anemia; Anxiety; Hypertension; jb4 - PSHx: 03:52 ; jb4 - Immunization history:: Adult Immunizations up to date. - Social history:: Smoking status: Patient denies any tobacco usage or history of. Patient uses alcohol, weekly. Patient/guardian denies using street drugs. Screenin:52 Abuse screen: Denies threats or abuse. Nutritional screening: No deficits noted. jb4 Tuberculosis screening: No symptoms or risk factors identified. Fall Risk None identified. Assessment: 04:00 General: Appears in no apparent distress. uncomfortable, Behavior is calm, cooperative, jb4 appropriate for age. Pain: Denies pain. Neuro: Level of Consciousness is awake, alert, obeys commands, Oriented to person, place, time, situation. Cardiovascular: Patient's skin is warm and dry. Respiratory: Airway is patent Respiratory effort is even, unlabored, Respiratory pattern is regular, symmetrical. GI: No signs and/or symptoms were reported involving the gastrointestinal system. : No signs and/or symptoms were reported regarding the genitourinary system. EENT: No signs and/or symptoms were reported regarding the EENT system. Derm: Skin is intact, Skin is pink, warm \T\ dry. Musculoskeletal: Circulation, motion, and sensation intact. Range of motion: intact in all extremities. 04:05 Reassessment: Provider notified of B/p, no new orders at this time. jb4 05:15 Reassessment: Patient appears in no apparent distress at this time. Patient and/or jb4 family updated on plan of care and expected duration. Pain level reassessed. Patient is alert, oriented x 3, equal unlabored respirations, skin warm/dry/pink. 06:30 Reassessment: Patient appears in no apparent distress at this time. Patient and/or jb4 family updated on plan of care and expected duration. Pain level reassessed. Patient is alert, oriented x 3, equal unlabored respirations, skin warm/dry/pink. 07:20 Reassessment: Patient appears in no apparent distress at this time. Patient and/or em family updated on plan of care and expected duration. Pain level reassessed. Patient is alert, oriented x 3, equal unlabored respirations, skin warm/dry/pink. 08:20 Reassessment: will be discharged after [address] Mera to monitor pt BP. em 09:00 Reassessment: Patient appears in no apparent distress at this time. Patient is alert, em oriented x 3, equal unlabored respirations, skin warm/dry/pink. Patient states symptoms have improved. Vital Signs: 03:52 BP 196 / 127 LA Sitting (auto/reg); Pulse 75; Resp 16; Temp 98.2(O); Pulse Ox 100% on jb4 R/A; Weight 88.45 kg (R); Height 5 ft. 3 in. (160.02 cm); Pain 0/10; 04:05 BP 218 / 136 (man/); jb4 05:00 BP 195 / 127; Pulse 79; Resp 16; Pulse Ox 100% on R/A; jb4 06:00 BP 198 / 118; Pulse 69; Resp 16; Pulse Ox 100% on R/A; jb4 07:23 BP 209 / 130; Pulse 68; Resp 18; Pulse Ox 100% on R/A; em 08:13 BP 192 / 124; Pulse 75; Resp 18; Pulse Ox 100% on R/A; Pain 0/10; em 08:59 BP 174 / 120; Pulse 82; Resp 18; Pulse Ox 99% on R/A; em 03:52 Body Mass Index 34.54 (88.45 kg, 160.02 cm) jb4 ED Course: 03:47 Patient arrived in ED. cl3 03:52 Ermias Adames, RN is Primary Nurse. jb4 03:52 Arm band placed on right wrist. jb4 03:52 Patient has correct armband on for positive identification. Bed in low position. Call jb4 light in reach. Side rails up X 1. Pulse ox on. NIBP on. 03:59 Tima Solano MD is Attending Physician. mh7 04:14 Triage completed. jb4 05:37 UDS Sent. jb5 07:01 LFT's Sent. jb5 07:01 Basic Metabolic Panel Sent. jb5 07:01 CBC with Diff Sent. jb5 07:21 Attending Physician role handed off by Tima Solano MD anselmo 07:21 Shreyas Mera MD is Attending Physician. anselmo 08:04 Alden Shore MD is Referral Physician. anselmo 08:05 Jackson Hansen MD is Referral Physician. anselmo 09:03 No provider procedures requiring assistance completed. IV discontinued, intact, em bleeding controlled, No redness/swelling at site. Pressure dressing applied. Administered Medications: 06:35 Drug: hydrOXYzine 50 mg Route: PO; jb4 08:13 Follow up: Response: No adverse reaction em 06:35 Drug: Pepcid 20 mg Route: PO; jb4 08:13 Follow up: Response: No adverse reaction em 07:19 Drug: Metoprolol 12.5 mg Route: PO; em 08:10 Follow up: Response: No adverse reaction; Blood pressure is unchanged em 08:10 CANCELLED (Duplicate Order): Lisinopril 5 mg PO once anselmo 08:12 Drug: Norvasc 10 mg Route: PO; em 09:00 Follow up: Response: No adverse reaction em 08:12 Drug: cloNIDine 0.1 mg Route: PO; em 09:00 Follow up: Response: No adverse reaction em 08:25 Drug: Lisinopril 5 mg Route: PO; em 09:00 Follow up: Response: No adverse reaction em Outcome: 08:07 Discharge ordered by . anselmo 09:03 Discharged to home ambulatory. em 09:03 Condition: improved 09:03 Discharge instructions given to patient, Instructed on discharge instructions, follow up and referral plans. medication usage, Demonstrated understanding of instructions, follow-up care, medications, Prescriptions given X 3. 09:05 Patient left the ED. em Signatures: Shreyas Mera MD MD cha Munoz, Edgar RN RN Ermias Nunez RN RN jb4 Deyanira López5 Adwoa Hercules3 Tima Solano MD MD mh7
[2019-12-04] MEDS ORDERED: cloNIDine HCL 0.1 MG TAB ONE (08:12)
[2019-12-04] MEDS ORDERED: AMLODIPINE 10 MG TAB ONE (08:19)
[2019-12-04] MEDS ORDERED: lisinopriL 5 MG TAB ONE (08:34)
[2019-12-04 08:36] LABS: Anisocytosis SLIGHT; Blood Morphology Comment NOTED (NOT SEEN); Platelet Estimate ADEQ
[2019-12-04 08:37] LABS: Hypochromasia 1+
[2019-12-04 09:11] VITALS: TEMP 98.2
[2019-12-04 09:18] VITALS: BP 174/120; O2SAT 99
== END 2019-12-04 09:05 | disposition home or self-care (01) ==
LOC: ER 03:45
DX: D64.9 Anemia, unspecified (principal); I10 Essential (primary) hypertension
CPT/HCPCS: 36415; 80048; 80076; 80307; 85025; 99284

== ENCOUNTER 2020-01-21 08:00 | Emergency (ER) | payer SELFPAY ==
[2020-01-21 08:49] LABS: Hematocrit 21.8 % (36.0-45.0); Lymphocytes % 32.1 % (15.3-44.8); MPV 8.6 fL (7.6-11.3); RBC Red Blood Cell Count 3.21 M/uL (3.86-4.86)
[2020-01-21 08:54] LABS: BUN Blood Urea Nitrogen 18 mg/dL (7-18); Bicarbonate 28 mmol/L (21-32); Glucose Level 101 mg/dL (74-106); Potassium 3.9 mmol/L (3.5-5.1); Sodium Level 143 mmol/L (136-145)
[2020-01-21 09:20] LABS: HCG, Quantitative < 1 mIU/mL (1-3)
[2020-01-21 09:24] LABS: Urine Blood 3+ (NEG); Urine Glucose NEGATIVE (NEG); Urine Protein 1+ (NEG); Urine Specific Gravity 1.025 (1.005-1.030)
[2020-01-21 09:40] LABS: Urine Bacteria <20 /HPF (<20); Urine Culture Reflex Order NOT NEEDED; Urine RBC TNTC /HPF (NONE SEEN)
--- NOTE | 2020-01-21 09:50 | RAD REPORT ---
EXAM DESCRIPTION: US - Transvaginal Study Probe - 01/21/2020 9:39 am CLINICAL HISTORY: Vaginal bleeding, pelvic pain, COMPARISON: none FINDINGS: The uterus measures 10 x 5 x 6 cm. A fibroid is not seen. The endometrial stripe measures 9 millimeters. A gestational sac is not seen. The ovaries are normal in size and echotexture. The right and left adnexa appear unremarkable No significant free fluid is seen. IMPRESSION: Nonvisualization of a gestational sac within the endometrium. This may indicate a comple te . Other considerations include an early IUP in which the gestational sac is not yet visual ized. An ectopic can also result in this appearance. This all should be correlated clinically and with appropriate lab values. Follow up endovaginal sonog sona in 1 week and serial beta hCGs may helpful
[2020-01-21 10:45] LABS: Anisocytosis 1+; Blood Morphology Comment NOTED (NOT SEEN); Hypochromasia 1+; Platelet Estimate ADEQ
[2020-01-21] MEDS ORDERED: NA CHLORIDE 0.9% 100 ML IV ONE (10:57)
--- NOTE | 2020-01-21 12:21 | ER ---
Nurse's Notes [facility] Name: Joyce Mera Age: 34 yrs Sex: Female : 1985 Arrival Date: 01/21/2020 Time: 08:01 Bed 7 Private MD: Diagnosis: Spontaneous ;Anemia, unspecified Presentation: 01/20 08:17 Chief complaint: Patient states: LMP was 20, positive home UPT on 12-19-19, started iw spotting 2 days ago, heavier bleeding with clots last night and cramping, G9, P7 , previous miscarriage when she was 19. Coronavirus screen: At this time, the client does not indicate any symptoms associated with coronavirus-19. Ebola Screen: Patient negative for fever greater than or equal to 101.5 degrees Fahrenheit, and additional compatible Ebola Virus Disease symptoms Patient denies exposure to infectious person. Patient denies travel to an Ebola-affected area in the 21 days before illness onset. No symptoms or risks identified at this time. Initial Sepsis Screen: Does the patient meet any 2 criteria? No. Patient's initial sepsis screen is negative. Does the patient have a suspected source of infection? No. Patient's initial sepsis screen is negative. Risk Assessment: Do you want to hurt yourself or someone else? Patient reports no desire to harm self or others. Onset of symptoms was January 19, 2020. 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 - Social history:: Smoking status: Patient denies any tobacco usage or history of. - Family history:: not pertinent. - Hospitalizations: : No recent hospitalization is reported. Screenin:10 Abuse screen: Denies threats or abuse. Nutritional screening: No deficits noted. aa5 Tuberculosis screening: No symptoms or risk factors identified. Fall Risk None identified. Assessment: 08:10 General: Appears comfortable, Behavior is calm, cooperative. Pain: Complains of pain in aa5 right lower quadrant and left lower quadrant Pain does not radiate. Pain currently is 8 out of 10 on a pain scale. Quality of pain is described as crampy, Is continuous. Neuro: Level of Consciousness is awake, alert, obeys commands, Oriented to person, place, time, situation. Cardiovascular: Heart tones S1 S2 present Rhythm is regular. Respiratory: Airway is patent Respiratory effort is even, unlabored, Respiratory pattern is regular, symmetrical. GI: No signs and/or symptoms were reported involving the gastrointestinal system. : Reports vaginal bleeding that is bright red, with clots, moderate flow. EENT: No signs and/or symptoms were reported regarding the EENT system. Derm: Skin is pink, warm \T\ dry. Musculoskeletal: Range of motion: intact in all extremities. 09:06 Reassessment: Patient is alert, oriented x 3, equal unlabored respirations, skin aa5 warm/dry/pink. Called US and US states they need UPT before US is completed, pt notified and pt ambulatory to restroom. . 10:45 Reassessment: Patient is alert, oriented x 3, equal unlabored respirations, skin aa5 warm/dry/pink. Consent for RBC blood transfusion signed by pt. Awaiting unit of blood from lab at this time. . 10:47 Reassessment: Pt ambulatory to restroom . aa5 10:52 Reassessment: Patient is alert, oriented x 3, equal unlabored respirations, skin aa5 warm/dry/pink. 11:15 Reassessment: RBC infusion started at 50cc/hr at 1100, infusion now at 250cc/hr, pt aa5 tolerating well. No adverse reaction noted. Pt now resting in bed with eyes closed, respirations even and unlabored, skin is pink/warm/dry. . 11:15 Reassessment: See blood transfusion record for more information and VS. . aa5 11:45 Reassessment: Patient is alert, oriented x 3, equal unlabored respirations, skin aa5 warm/dry/pink. states no complaints at this time. . 11:52 Reassessment: Patient is alert, oriented x 3, equal unlabored respirations, skin aa5 warm/dry/pink. Pt requesting pain medication for cramping, notified. . 12:30 Reassessment: Patient is alert, oriented x 3, equal unlabored respirations, skin aa5 warm/dry/pink. Pt given bottle of water. Blood transfusion almost complete at this time. . 12:40 Reassessment: Patient is alert, oriented x 3, equal unlabored respirations, skin aa5 warm/dry/pink. 12:40 Reassessment: RBC 1 unit complete. Pt tolerated well, no adverse reaction noted. Total aa5 amount transfused 400mls. . Vital Signs: 08:17 BP 155 / 85; Pulse 69; Resp 16; Temp 97.8; Pulse Ox 100% on R/A; Weight 88.45 kg; iw Height 5 ft. 3 in. (160.02 cm); Pain 8/10; 10:52 BP 156 / 97; Pulse 60; Resp 16 S; Temp 98.8(TE); Pulse Ox 100% on R/A; aa5 11:30 BP 146 / 78; Pulse 64; Resp 18 S; Temp 98.7(TE); Pulse Ox 100% on R/A; aa5 12:40 BP 148 / 78; Pulse 70; Resp 16 S; Temp 98.6(TE); Pulse Ox 100% on R/A; aa5 08:17 Body Mass Index 34.54 (88.45 kg, 160.02 cm) iw ED Course: 08:01 Patient arrived in ED. as 08:06 Aman Frazier MD is Attending Physician. rn 08:08 Shantel Noland, RN is Primary Nurse. aa5 08:10 Arm band placed on. aa5 08:10 Patient has correct armband on for positive identification. Placed in gown. Bed in low aa5 position. Call light in reach. Side rails up X2. rotary dump operator on. Pulse ox on. NIBP on. 08:19 Initial lab(s) drawn, by me, sent to lab. Inserted saline lock: 20 gauge in right aa5 antecubital area, using aseptic technique. Blood collected. 08:21 Triage completed. iw 08:55 Radiology exam delayed due to lab results not completed at this time. (HCG) aa4 test not completed at this time. 09:10 Urine collected: clean catch specimen, blood tinged, Urine micro sent to lab. aa5 09:38 Transvaginal Study Probe In Process Unspecified. EDMS 12:40 No provider procedures requiring assistance completed. IV discontinued, intact, aa5 bleeding controlled, No redness/swelling at site. Pressure dressing applied. Administered Medications: 12:20 Drug: Tylenol 650 mg Route: PO; aa5 Outcome: 12:21 Discharge ordered by . rn 12:45 Discharged to home ambulatory. aa5 12:45 Condition: stable 12:45 Discharge instructions given to patient, Instructed on discharge instructions, follow up and referral plans. Demonstrated understanding of instructions, follow-up care. 12:49 Patient left the ED. aa5 Signatures: Dispatcher [employer] EDNJ Toma Egan Irene RN RN Roselia Ceballos aa4 Aman Frazier MD MD rn Calderon, Audri, RN RN aa5 Corrections: (The following items were deleted from the chart) 09:24 08:22 Arm band placed on aa5 12:59 12:49 Patient left the ED. [facility] :59 12:45 Patient left the ED. [place] [id number] :59 12:45 AMA Other AMA form signed by father [facility] aa :59 12:45 Condition: stable aa5 aa5
--- NOTE | 2020-01-21 12:21 | EDPHYS ---
Physician Documentation [facility] Name: Joyce Mera Age: 34 yrs Sex: Female : 1985 Arrival Date: 01/21/2020 Time: 08:01 Bed 7 Private MD: ED Physician Aman Frazier HPI: 01/20 11:49 This 34 yrs old Female presents to ER via Ambulatory with complaints of rn Vaginal Bleeding, + Preg <12wks. 11:49 The patient presents to the emergency department with vaginal bleeding. rn course: care: none. Previous pregnancies: in previous pregnancies patient has had. The patient has experienced a previous episode. at unknown gestation, presents with vaginal bleeding, has positive test this past week, no trauma, no urinary symptoms, reports lower abd pain. Reports chronic anemia, sometimes in 4s-5s. . 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 - Social history:: Smoking status: Patient denies any tobacco usage or history of. - Family history:: not pertinent. - Hospitalizations: : No recent hospitalization is reported. ROS: 11:49 Constitutional: Negative for fever, chills, and weight loss, Eyes: Negative for injury, rn pain, redness, and discharge, Neck: Negative for injury, pain, and swelling, Cardiovascular: Negative for chest pain, palpitations, and edema, Respiratory: Negative for shortness of breath, cough, wheezing, and pleuritic chest pain, Abdomen/GI: Negative for nausea, vomiting, diarrhea, and constipation, : + vaginal bleeding MS/Extremity: Negative for injury and deformity, Skin: Negative for injury, rash, and discoloration, Neuro: Negative for headache, weakness, numbness, tingling, and seizure. Exam: 11:49 Constitutional: This is a well developed, well nourished patient who is awake, alert, rn and in no acute distress. Head/Face: Normocephalic, atraumatic. Cardiovascular: Regular rate and rhythm. No pulse deficits. Respiratory: No increased work of breathing, no retractions or nasal flaring. Abdomen/GI: soft, mild lower abd tenderness Skin: Warm, dry MS/ Extremity: Pulses equal, no cyanosis. Neurovascular intact. Full, normal range of motion. Equal circumference. Neuro: Awake and alert, GCS 15 Vital Signs: 08:17 BP 155 / 85; Pulse 69; Resp 16; Temp 97.8; Pulse Ox 100% on R/A; Weight 88.45 kg; iw Height 5 ft. 3 in. (160.02 cm); Pain 8/10; 10:52 BP 156 / 97; Pulse 60; Resp 16 S; Temp 98.8(TE); Pulse Ox 100% on R/A; aa5 11:30 BP 146 / 78; Pulse 64; Resp 18 S; Temp 98.7(TE); Pulse Ox 100% on R/A; aa5 12:40 BP 148 / 78; Pulse 70; Resp 16 S; Temp 98.6(TE); Pulse Ox 100% on R/A; aa5 08:17 Body Mass Index 34.54 (88.45 kg, 160.02 cm) iw MDM: 08:06 Patient medically screened. rn 12:19 Differential diagnosis: ectopic , anemia. rn 12:19 Data reviewed: vital signs, nurses notes, lab test result(s), radiologic studies, rn ultrasound, and as a result, I will discharge patient. Counseling: I had a detailed discussion with the patient and/or guardian regarding: the historical points, exam findings, and any diagnostic results supporting the discharge/admit diagnosis, lab results, radiology results, the need for outpatient follow up, to return to the emergency department if symptoms worsen or persist or if there are any questions or concerns that arise at home. Response to treatment: the patient's symptoms have markedly improved after treatment, and as a result, I will discharge patient. Special discussion: I discussed with the patient/guardian in detail that at this point there is no indication for admission to the hospital. It is understood, however, that if the symptoms persist or worsen the patient needs to return immediately for re-evaluation. ED course: Pt with HCG < 1, no evidence of on U/S, no ectopic, + chronic anemia so given 1 unit pRBC, will dc home with pcp f/u and return precautions. . 12:21 ED course: Either false positive preg test at home, or complete . Either way, rn stable and RH +.. 01/20 08:11 Order name: Quantitative Hcg; Complete Time: 09:21 rn 01/20 08:11 Order name: Abo/rh Typing rn 01/20 08:11 Order name: Basic Metabolic Panel; Complete Time: 09:21 rn 01/20 08:11 Order name: CBC with Diff; Complete Time: 12:19 rn 01/20 08:11 Order name: Urine Microscopic Only; Complete Time: 10:01 rn 01/20 09:19 Order name: Urine Dipstick--Ancillary (enter results); Complete Time: 09:34 bd 01/20 09:19 Order name: Urine --Ancillary (enter results); Complete Time: 09:34 bd 01/20 09:37 Order name: Transvaginal Study Probe; Complete Time: 10:01 EDMS 01/20 09:37 Order name: Bb Add On bd 01/20 09:46 Order name: Antibody Screen EDMS 01/20 09:46 Order name: Packed RBC Leukored EDMS 01/20 10:45 Order name: Manual Differential; Complete Time: 12:19 EDMS 01/20 08:11 Order name: Urine Test (obtain specimen); Complete Time: 09:19 rn 01/20 08:11 Order name: IV Saline Lock; Complete Time: 08:24 rn 01/20 08:11 Order name: Labs collected and sent; Complete Time: 08:24 rn 01/20 08:11 Order name: NPO; Complete Time: 08:13 rn 01/20 08:11 Order name: Urine Dipstick-Ancillary (obtain specimen); Complete Time: 09:19 rn Administered Medications: 12:20 Drug: Tylenol 650 mg Route: PO; aa5 Disposition: 01/21/20 12:21 Discharged to Home. Impression: Spontaneous , Anemia, unspecified. - Condition is Stable. - Discharge Instructions: Anemia, Nonspecific, Miscarriage. - Medication Reconciliation Form, Thank You Letter, Antibiotic Education, Prescription Opioid Use form. - Follow up: Private Physician; When: As needed; Reason: Recheck today's complaints, Re-evaluation by your physician. - Problem is new. - Symptoms have improved. Signatures: Dispatcher [employer] [facility] Amaya Hines RN RN iw Aman Frazier MD MD rn Calderon, Audri, RN RN aa5 Corrections: (The following items were deleted from the chart) 09:37 08:19 Transvaginal Ob+US.RAD.BRZ ordered. [facility] 12:49 12:21 01/21/2020 12:21 Discharged to Home. Impression: Spontaneous ; Anemia, iw unspecified. Condition is Stable. Forms are Medication Reconciliation Form, Thank You Letter, Antibiotic Education, Prescription Opioid Use. Follow up: Private Physician; When: As needed; Reason: Recheck today's complaints, Re-evaluation by your physician. Problem is new. Symptoms have improved. rn
[2020-01-21] MEDS ORDERED: ACETAMINOPHEN 325 MG TABLET ONE (12:24)
[2020-01-21 13:02] VITALS: O2SAT 100
[2020-01-21 13:04] VITALS: BP 146/78; TEMP 98.7
--- OUTSIDE RECORDS SUMMARY | 2020-01-22 18:42 | XMS REPORT | Continuity of Care Document ---
:1985 Author Organization [facility] Address [address] [place] [address] Care Team Providers Name Role Phone Pat Owusu Attending Clinician Curtis Dutton Attending Clinician Problems Condition Condition Condition Status Onset Resolution Last Treating Co mments Source Name Details Category Date Date Treatment Clinician Date Coffee Coffee Disease Active [facility] ground ground 5-05 [facility] - em[facility] emesis 00:00: Medical 00 [place] Acute Acute Disease Active Overview: [facility] blood loss blood loss 5-05 In [place] k[place] - anemia anemia 00:00: anticipat Medical 00 [facility] transfer to [facility] from [facility] to [place] on for acute blood loss anemia with [...] ic instabili ty. Already received 2units at [facility] in anticipat ion for transfer. Will need to perform serial CBCs q6hs and keep NPO with IV fluids.Aung Spencer etis, MDPGY6 Gastroent erology and Hepatolog y [facility] Allergies, Adverse Reactions, Alerts This patient has no known allergies or adverse reactions. Social History Social Habit Start Date Stop Date Quantity Comments Source Sex Assigned At [facility] Medications This patient has no known medications. Procedures This patient has no known procedures. Encounters Start End Encounter Admission Attending Care Care Encounter Source Date/Time Date/Time Type Type Clinicians Facility Department ID 2019-10-01 2019-10-01 Emergency Braydon Lee [facility] [id number] 17:49:15 20:06:00 Pat Ribera [id number] [place] [id number] [place] [id number] 2018-12-30 2018-12-30 Emergency [facility] [id number] 14:58:03 17:46:00 Myrna Ribera [id number] [place] [id number] [place] [id number] Results This patient has no known results.
--- OUTSIDE RECORDS SUMMARY | 2020-01-22 18:42 | XMS REPORT | Clinical Summary ---
:1985 Author Organization [facility] Address [address] [place] [address] Care Team Providers Name Role Phone Unavailable Primary Care Provider Unavailable Allergies Not on File Medications Not on file Active Problems Problem Noted Date Coffee ground emesis 08/18/2017 Acute blood loss anemia 08/18/2017 Overview: In anticipation for transfer to [facility] from [facility] to [place] on for acute blood loss anemia with [...] Garfield Worley MD PGY6 Gastroenterology and Hepatology [facility] Social History Tobacco Use Types Packs/Day Years Used Date Never Assessed Sex Assigned at Date Recorded Not on file Job Start Date Occupation Industry Not on file Not on file Not on file Travel History Travel Start Travel End No recent travel history available. Last Filed Vital Signs Not on file Plan of Treatment Not on file Results Not on fileafter 01/20/2019
== END 2020-01-21 12:49 | disposition home or self-care (01) ==
LOC: ER 08:00
PROC: 30233N1 Transfusion of Nonautologous Red Blood Cells into Peripheral Vein, Percutaneous Approach (ICD-10-PCS; principal; 2020-01-21)
DX: D64.9 Anemia, unspecified (principal); I10 Essential (primary) hypertension; F41.9 Anxiety disorder, unspecified
CPT/HCPCS: 36415; 76830; 80048; 81003; 81015; 81025; 84702; 85025; 86850; 86900; 86901; 99284; P9016

== ENCOUNTER 2020-04-01 22:47 | Emergency (ER) | payer OTHER ==
--- OUTSIDE RECORDS SUMMARY | 2020-04-01 22:50 | XMS REPORT | Continuity of Care Document ---
:1985 Author Organization [facility] Address [address] [place] [address] Care Team Providers Name Role Phone Pat Owusu Attending Clinician Curtis Dutton Attending Clinician Problems Condition Condition Condition Status Onset Resolution Last Treating Co mments Source Name Details Category Date Date Treatment Clinician Date Coffee Coffee Disease Active [facility] ground ground 5-05 [facility] - emesis emesis 00:00: Medical 00 [place] Acute Acute Disease Active Overview: [facility] blood loss blood loss 5-05 In [place] - anemia anemia 00:00: anticipat Medical 00 [facility] for [facility] transfer to [facility] from [facility] to [place] on for acute blood loss anemia with [...] ic instabili ty. Already received 2units at [facility] in anticipat ion for transfer. Will need to perform serial CBCs q6hs and keep NPO with IV fluids.Aung Spencer etis, MDPGY6 Gastroent erology and Hepatolog y [facility] Allergies, Adverse Reactions, Alerts This patient has no known allergies or adverse reactions. Social History Social Habit Start Date Stop Date Quantity Comments Source Sex Assigned At [facility] Medications This patient has no known medications. Procedures This patient has no known procedures. Encounters Start End Encounter Admission Attending Care Care Encounter Source Date/Time Date/Time Type Type Clinicians Facility Department ID 2019-10-01 2019-10-01 Emergency Braydon Lee [facility] [id number] 17:49:15 20:06:00 Pat Ribera [id number] [place] [id number] [place] [id number] 2018-12-30 2018-12-30 Emergency [facility] [id number] 14:58:03 17:46:00 Myrna Ribera [id number] [place] [id number] [place] [id number] Results This patient has no known results.
--- OUTSIDE RECORDS SUMMARY | 2020-04-01 22:50 | XMS REPORT | Clinical Summary ---
:1985 Author Organization [facility] Address [address] [place] [address] Care Team Providers Name Role Phone Unavailable Primary Care Provider Unavailable Allergies Not on File Medications Not on file Active Problems Problem Noted Date Coffee ground emesis 08/18/2017 Acute blood loss anemia 08/18/2017 Overview: In anticipation for transfer to [facility] from [facility] to [place] on for acute blood loss anemia with [...] Garfield Worley MD PGY6 Gastroenterology and Hepatology [facility] Social History Tobacco Use Types Packs/Day Years Used Date Never Assessed Sex Assigned at Date Recorded Not on file Last Filed Vital Signs Not on file Plan of Treatment Not on file Results Not on fileafter 04/01/2019
[2020-04-01] MEDS ORDERED: IBUPROFEN 400 MG TAB ONE (23:39)
--- NOTE | 2020-04-02 00:55 | EDPHYS ---
Physician Documentation [facility] Name: Joyce Mera Age: 34 yrs Sex: Female : 1985 Arrival Date: 04/01/2020 Time: 22:52 Bed 25 Private MD: ED Physician Shreyas Mera HPI: 04/01 23:25 This 34 yrs old Female presents to ER via Ambulatory with complaints of Wrist jmm Pain - right. 23:25 The patient or guardian reports injury, pain. Onset: The symptoms/episode jmm began/occurred acutely, just prior to arrival. Modifying factors: The symptoms are alleviated by nothing, the symptoms are aggravated by nothing. Associated signs and symptoms: Pertinent negatives: decreased sensation distally, fever, nausea, numbness distally, tingling distally, vomiting. This is a 34 year old female with a history of anemia, anxiety, htn that presents to the ED with complaints of right wrist pain, patient felt a pop after lifting a heavy object. Denies other injury. . Historical: - Allergies: 23:07 No Known Allergies; sg - PMHx: 23:07 Anemia; Anxiety; Hypertension; sg - PSHx: 23:07 ; sg - Immunization history:: Adult Immunizations up to date. - Social history:: Smoking status: Patient denies any tobacco usage or history of. ROS: 23:25 Constitutional: Negative for fever, chills, and weight loss, Cardiovascular: Negative jmm for chest pain, palpitations, and edema, Respiratory: Negative for shortness of breath, cough, wheezing, and pleuritic chest pain. 23:25 MS/extremity: Positive for injury or acute deformity, pain. 23:25 All other systems are negative. Exam: 23:25 Constitutional: This is a well developed, well nourished patient who is awake, alert, jmm and in no acute distress. Head/Face: atraumatic. Eyes: EOMI, no conjunctival erythema appreciated ENT: Moist Mucus Membranes Neck: Trachea midline, Supple Chest/axilla: Normal chest wall appearance and motion. Cardiovascular: Regular rate and rhythm. No edema appreciated Respiratory: Normal respirations, no respiratory distress appreciated Abdomen/GI: Non distended, soft Back: Normal ROM Skin: General appearance color normal 23:25 Musculoskeletal/extremity: right distal radius ttp, full radial pulse, compartments are soft, NVI. 23:25 Skin: Appearance: Color: normal in color. 23:25 Neuro: Orientation: is normal, Mentation: is normal, Memory: is normal. 23:25 Psych: Behavior/mood is pleasant, cooperative. Vital Signs: 23:06 BP 142 / 70; Pulse 77; Resp 18; Temp 97.7; Pulse Ox 100% on R/A; Pain 8/10; sg MDM: 23:[address] [facility] 04/02 00:53 Data reviewed: vital signs, nurses notes. Counseling: I had a detailed discussion with mihir the patient and/or guardian regarding: the historical points, exam findings, and any diagnostic results supporting the discharge/admit diagnosis, radiology results, the need for outpatient follow up, to return to the emergency department if symptoms worsen or persist or if there are any questions or concerns that arise at home. ED course: No fracture on xray, most likely ligament injury. Advised to follow up with ortho. Otherwise given strict return precautions. Patient understood and agrees with the plan of care. . 04/01 23:15 Order name: Wrist Right [address] [facility] 04/02 00:24 Order name: Wrist Splint; Complete Time: 00:32 [facility] Administered Medications: 04/01 23:28 Drug: Ibuprofen 800 mg Route: PO; Disposition: 04/02 07:46 Co-signature as Attending Physician, Shreyas Mera MD I agree with the assessment and anselmo plan of care. Disposition: 04/02/20 00:55 Discharged to Home. Impression: Other and unspecified sprain of wrist. - Condition is Stable. - Discharge Instructions: Wrist Sprain. - Prescriptions for Ibuprofen 800 mg Oral Tablet - take 1 tablet by ORAL route every 8 hours As needed take with food; 30 tablet. - Medication Reconciliation Form, Thank You Letter, Antibiotic Education, Prescription Opioid Use form. - Follow up: Fabiano Roy MD; When: 2 - 3 days; Reason: Recheck today's complaints, Continuance of care, Re-evaluation by your physician. Signatures: Dispatcher [employer] EDMS Bobby Verma RN RN sg Anderson, Corey, MD MD cha Mickail, Joel, PA PA [facility] Corrections: (The following items were deleted from the chart) 01:07 00:55 04/02/2020 00:55 Discharged to Home. Impression: Other and unspecified sprain of sg wrist. Condition is Stable. Forms are Medication Reconciliation Form, Thank You Letter, Antibiotic Education, Prescription Opioid Use. Follow up: Fabiano Roy; When: 2 - 3 days; Reason: Recheck today's complaints, Continuance of care, Re-evaluation by your physician. kelly
--- NOTE | 2020-04-02 00:55 | ER ---
Nurse's Notes [facility] Name: Joyce Mera Age: 34 yrs Sex: Female : 1985 Arrival Date: 04/01/2020 Time: 22:52 Bed 25 Private MD: Diagnosis: Other and unspecified sprain of wrist Presentation: 04/01 23:06 Acuity: ALICIA 4 sg 23:06 Chief complaint: Patient states: R wrist pain, states was picking up a bucket and felt sg the wrist pop with movement to the bone in the arm, states pain a 10/10. Coronavirus screen: Client denies travel out of the [place] in the last 14 days. At this time, the client does not indicate any symptoms associated with coronavirus-19. Ebola Screen: Patient negative for fever greater than or equal to 101.5 degrees Fahrenheit, and additional compatible Ebola Virus Disease symptoms Patient denies exposure to infectious person. Patient denies travel to an Ebola-affected area in the 21 days before illness onset. No symptoms or risks identified at this time. Initial Sepsis Screen: Does the patient meet any 2 criteria? No. Patient's initial sepsis screen is negative. Does the patient have a suspected source of infection? No. Patient's initial sepsis screen is negative. Risk Assessment: Do you want to hurt yourself or someone else? Patient reports no desire to harm self or others. Onset of symptoms was April 01, 2020. Care prior to arrival: None. Activity prior to arrival: None. Transition of care: patient was not received from another setting of care. 23:06 Method Of Arrival: Ambulatory sg Historical: - Allergies: 23:07 No Known Allergies; sg - PMHx: 23:07 Anemia; Anxiety; Hypertension; sg - PSHx: 23:07 ; sg - Immunization history:: Adult Immunizations up to date. - Social history:: Smoking status: Patient denies any tobacco usage or history of. Vital Signs: 23:06 BP 142 / 70; Pulse 77; Resp 18; Temp 97.7; Pulse Ox 100% on R/A; Pain 8/10; sg ED Course: 22:52 Patient arrived in ED. am2 23:06 Triage completed. sg 23:07 Arm band placed on. sg 23:14 Lalit Kasper PA is PHCP. kelly 23:14 Shreyas Mera MD is Attending Physician. [facility] 23:17 Bobby Verma RN is Primary Nurse. 04/02 00:54 Fabiano Roy MD is Referral Physician. [facility] Administered Medications: 04/01 23:28 Drug: Ibuprofen 800 mg Route: PO; sg Outcome: 04/02 00:55 Discharge ordered by . [facility] 01:07 Patient left the ED. Signatures: Bobby Verma RN RN Lalit Kasper PA PA [facility] Roselia Rowell [facility]
--- NOTE | 2020-04-02 08:09 | RAD REPORT ---
EXAM DESCRIPTION: RAD - Wrist Right 3 View - 04/02/2020 7:28 am CLINICAL HISTORY: PAIN, trauma, lifting injury COMPARISON: No comparisons FINDINGS: No fracture is identified. There is no dislocation or periosteal reaction noted. Epiphyses and growth plates are normal in appearance. No foreign body or other soft tissue abnormality. IMPRESSION: Negative right wrist examination.
[2020-04-05 09:04] VITALS: BP 142/70; TEMP 97.7; O2SAT 100
== END 2020-04-02 01:07 | disposition home or self-care (01) ==
LOC: ER 22:47
DX: S63.591A Other specified sprain of right wrist, initial encounter (principal); X50.0XXA Overexertion from strenuous movement or load, initial encounter; Y93.89 Activity, other specified; Y92.9 Unspecified place or not applicable; I10 Essential (primary) hypertension
CPT/HCPCS: 99282

== ENCOUNTER 2020-08-13 18:25 | Observation (INO) | payer OTHER ==
--- OUTSIDE RECORDS SUMMARY | 2020-08-13 18:27 | XMS REPORT | Continuity of Care Document ---
:1985 Author Organization [facility] Address [address] [place] [address] Care Team Providers Name Role Phone Amanda Fajardo Attending Clinician Pat Owusu Attending Clinician Curtis Dutton Attending Clinician Problems Condition Condition Condition Status Onset Resolution Last Treating Co mments Source Name Details Category Date Date Treatment Clinician Date Coffee Coffee Disease Active [facility] ground ground 5-05 [facility] - emesis emesis 00:00: Medical 00 [place] Acute Acute Disease Active Overview: [facility] blood loss blood loss 5-05 In [place] - [facility] from [facility] to [place] on for acute blood loss anemia with [...] ty. Already received 2units at [facility] in anticipat ion for transfer. Will need to perform serial CBCs q6hs and keep NPO with IV fluids.Aung Spencer etis, MDPGY6 Gastroent erology and Hepatolog y [facility] Allergies, Adverse Reactions, Alerts This patient has no known allergies or adverse reactions. Social History Social Habit Start Date Stop Date Quantity Comments Source Sex Assigned At [facility] Medications This patient has no known medications. Procedures This patient has no known procedures. Encounters Start End Encounter Admission Attending Care Care Encounter Source Date/Time Date/Time Type Type Clinicians Facility Department ID 2020-05-09 2020-05-09 Emergency [facility] [id number] 00:11:00 03:03:00 Linda Ribera [id number] [place] [id number] [place] [id number] 2019-10-01 2019-10-01 Emergency Jesus, K [id number] 17:49:15 20:06:00 Pat Ribera [id number] [place] [id number] [place] [id number] 2018-12-30 2018-12-30 Emergency [id number] 14:58:03 17:46:00 Myrna Ribera [id number] [place] [id number] [place] [id number] Results This patient has no known results.
[2020-08-13 20:44] LABS: SARS-COV-2 RT PCR NEGATIVE (NEGATIVE)
--- NOTE | 2020-08-13 20:57 | ER ---
Nurse's Notes [facility] Name: Joyce Mera Age: 34 yrs Sex: Female : 1985 Arrival Date: 08/13/2020 Time: 18:28 Bed 23 [facility] MD: Diagnosis: Streptococcal pharyngitis;Iron deficiency anemia Presentation: 08/13 18:37 Chief complaint: Fatigue, dizziness, sore throat, and headache upon waking today. Hx of hb anemia. Coronavirus screen: At this time, the client does not indicate any symptoms associated with coronavirus-19. Ebola Screen: No symptoms or risks identified at this time. Initial Sepsis Screen: Does the patient meet any 2 criteria? No. Patient's initial sepsis screen is negative. Does the patient have a suspected source of infection? No. Patient's initial sepsis screen is negative. Risk Assessment: Do you want to hurt yourself or someone else? Patient reports no desire to harm self or others. Onset of symptoms was August 13, 2020. 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 - Social history:: Smoking status: Patient denies any tobacco usage or history of. Screenin:09 Abuse screen: Denies threats or abuse. Nutritional screening: No deficits noted. kg Tuberculosis screening: No symptoms or risk factors identified. Fall Risk None identified. No fall in past 12 months (0 pts). No secondary diagnosis (0 pts). No IV (0 pts). Ambulatory Aid- None/Bed Rest/Nurse Assist (0 pts). Gait- Normal/Bed Rest/Wheelchair (0 pts) Mental Status- Oriented to own ability (0 pts). Total Parsons Fall Scale indicates No Risk (0-24 pts). Assessment: 19:06 General: Appears in no apparent distress. Behavior is calm, cooperative, appropriate kg for age, quiet. Pain: Complains of pain in face Pain radiates to Generalized Pain currently is 6 out of 10 on a pain scale. at worst was 6 out of 10 on a pain scale. level that patient reports is acceptable is 3 out of 10 on a pain scale. Quality of pain is described as aching, Pain began gradually, 1 day ago. Is continuous, Alleviated by nothing. Neuro: No deficits noted. Cardiovascular: No deficits noted. Respiratory: No deficits noted. GI: No deficits noted. : No deficits noted. EENT: Reports difficulty swallowing pain in Throat when swallowing Pain is 6 out of 10 on a pain scale. since This AM. Derm: No deficits noted. Musculoskeletal: Reports pain in neck since This AM. Pain is 6 out of 10 on a pain scale. 19:55 Reassessment: Patient and/or family updated on plan of care and expected duration. Pain kg level reassessed. Patient is alert, oriented x 3, equal unlabored respirations, skin warm/dry/pink. Vital Signs: 18:37 BP 129 / 76; Pulse 93; Resp 16; Temp 98.2; Pulse Ox 100% on R/A; Pain 6/10; hb 19:54 BP 118 / 74; Pulse 87; Resp 18; Temp 97.9; Pulse Ox 100% ; Pain 0/10; kg 21:00 BP 125 / 82; Pulse 88; Resp 18; Pulse Ox 100% ; Pain 6/10; cr4 21:51 BP 136 / 78; Pulse 84; Resp 18; Temp 97.9; Pulse Ox 100% ; cr4 ED Course: 18:28 Patient arrived in ED. am2 18:32 [facility] jr8 18:32 Shreyas Mera MD is Attending Physician. jr8 18:38 Triage completed. hb 18:38 Arm band placed on. hb 18:54 Joyce James is Primary Nurse. kg 19:14 Report given to Betina MENDOZA. kg 20:08 Hemoglobin Sent. kg 20:08 CORONAVIRUS Sent. kg 20:08 Influenza Screen (A Sent. kg 20:41 Notified Nurse Practitioner and/or Physician Charge Manager of a critical lab result(s), hgb kg 5.6. 20:53 Admitting physician to see patient. Nurse Practitioner and/or Physician Charge Manager to kg see patient. 20:56 Rayo Seals DO is Hospitalizing Provider. jr8 21:09 Inserted saline lock: 20 gauge in right antecubital area, using aseptic technique. cr4 21:52 No provider procedures requiring assistance completed. Patient admitted, IV remains in cr4 place. 22:03 Patient has correct armband on for positive identification. cr4 Administered Medications: 21:13 Drug: Augmentin (Amoxicillin-Clavulanate) 875 mg Route: PO; cr4 21:50 Follow up: Response: No adverse reaction cr4 Outcome: 20:57 Decision to Hospitalize by Provider. jr8 21:52 Admitted to Med/surg accompanied by tech, via wheelchair, room 206, with chart, Report cr4 called to Christie 21:52 Condition: good 21:52 Instructed on the need for admit. 22:05 Patient left the ED. cr4 Signatures: Betina Harman, RN RN cr4 Meño Pan PA PA jr8 Ebonie Jones RN RN Roselia Rowlel am2 Joyce James kg Corrections: (The following items were deleted from the chart) 22:04 21:51 BP 136 / 78; Pulse 84bpm; Resp 18bpm; Pulse Ox 100%; cr4 cr4
--- NOTE | 2020-08-13 20:57 | EDPHYS ---
Physician Documentation [facility] Name: Joyce Mera Age: 34 yrs Sex: Female : 1985 Arrival Date: 08/13/2020 Time: 18:28 Bed 23 Private MD: VILMA Physician Shreyas Mera HPI: 08/13 19:53 This 34 yrs old Female presents to ER via Ambulatory with complaints of jr8 Doesn't Feel Right. 19:53 Patient stated that she woke up today having fatigue an body aches. Stated that her jr8 throat was also sore. Denies n/v or fevers at this time . Onset: The symptoms/episode began/occurred acutely, today. Severity of symptoms: At their worst the symptoms were moderate in the emergency department the symptoms are unchanged. The patient has not experienced similar symptoms in the past. The patient has not recently seen a physician. 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 - Social history:: Smoking status: Patient denies any tobacco usage or history of. ROS: 19:53 Eyes: Negative for injury, pain, redness, and discharge, Neck: Negative for injury, jr8 pain, and swelling, Cardiovascular: Negative for chest pain, palpitations, and edema, Respiratory: Negative for shortness of breath, cough, wheezing, and pleuritic chest pain, Abdomen/GI: Negative for abdominal pain, nausea, vomiting, diarrhea, and constipation, Back: Negative for injury and pain, MS/Extremity: Negative for injury and deformity, Skin: Negative for injury, rash, and discoloration, Neuro: Negative for headache, weakness, numbness, tingling, and seizure. 19:53 Constitutional: Positive for body aches, fatigue. 19:53 ENT: Positive for sore throat. Exam: 19:53 Eyes: Pupils equal round and reactive to light, extra-ocular motions intact. Lids and jr8 lashes normal. Conjunctiva and sclera are non-icteric and not injected. Cornea within normal limits. Periorbital areas with no swelling, redness, or edema. Neck: Trachea midline, no thyromegaly or masses palpated, and no cervical lymphadenopathy. Supple, full range of motion without nuchal rigidity, or vertebral point tenderness. No Meningismus. Cardiovascular: Regular rate and rhythm with a normal S1 and S2. No gallops, murmurs, or rubs. Normal PMI, no JVD. No pulse deficits. Respiratory: Lungs have equal breath sounds bilaterally, clear to auscultation and percussion. No rales, rhonchi or wheezes noted. No increased work of breathing, no retractions or nasal flaring. Abdomen/GI: Soft, non-tender, with normal bowel sounds. No distension or tympany. No guarding or rebound. No evidence of tenderness throughout. Back: No spinal tenderness. No costovertebral tenderness. Full range of motion. Skin: Warm, dry with normal turgor. Normal color with no rashes, no lesions, and no evidence of cellulitis. MS/ Extremity: Pulses equal, no cyanosis. Neurovascular intact. Full, normal range of motion. Neuro: Awake and alert, GCS 15, oriented to person, place, time, and situation. Cranial nerves II-XII grossly intact. Motor strength 5/5 in all extremities. Sensory grossly intact. Cerebellar exam normal. Normal gait. 19:53 ENT: Exam is negative for earache, ear discharge, TM abnormalities, nasal discharge, Mouth: Lips: moist, Oral mucosa: pink and intact, moist, Gums: normal with healthy appearance, Tongue: is normal, Posterior pharynx: Airway: patent, Tonsils: with erythema, with exudate, no ulcerations, Uvula: midline, non-edematous, no erythema, swelling, is not appreciated, erythema, that is mild. Vital Signs: 18:37 BP 129 / 76; Pulse 93; Resp 16; Temp 98.2; Pulse Ox 100% on R/A; Pain 6/10; hb 19:54 BP 118 / 74; Pulse 87; Resp 18; Temp 97.9; Pulse Ox 100% ; Pain 0/10; kg 21:00 BP 125 / 82; Pulse 88; Resp 18; Pulse Ox 100% ; Pain 6/10; cr4 21:51 BP 136 / 78; Pulse 84; Resp 18; Temp 97.9; Pulse Ox 100% ; cr4 MDM: 18:47 Patient medically screened. [facility] 20:56 Data reviewed: vital signs, nurses notes, lab test result(s), and as a result, I will jr8 admit patient. Data interpreted: Pulse oximetry: on room air is 100 %. Interpretation: normal. Counseling: I had a detailed discussion with the patient and/or guardian regarding: the historical points, exam findings, and any diagnostic results supporting the discharge/admit diagnosis, lab results, the need for further work-up and treatment in the hospital. 08/13 19:16 Order name: Strep [facility] 08/13 19:16 Order name: COVID-19 : Document "Date of Symptom Onset" if Symptomatic. [facility] 08/13 19:16 Order name: Flu [facility] 08/13 19:52 Order name: Hemoglobin [facility] 08/13 20:42 Order name: CBC with Diff [facility] 08/13 20:42 Order name: Basic Metabolic Panel [facility] 08/13 20:42 Order name: TS [facility] 08/13 20:44 Order name: COVID-19/FLU A+B; Complete Time: 20:46 EDID 08/13 20:47 Order name: Iron Level la 08/13 20:47 Order name: TIBC la1 08/13 20:48 Order name: Hemoglobin [facility] 08/13 20:42 Order name: IV; Complete Time: 21:09 [facility] 08/13 20:53 Order name: Group A Streptococcus Rapid Sc [facility] 08/13 21:33 Order name: CBC with Automated Diff [facility] 08/13 21:39 Order name: Basic Metabolic Panel [facility] 08/13 21:39 Order name: Transferrin Sat/Iron Binding EDID 08/13 21:39 Order name: Ferritin EDID 08/13 22:00 Order name: Type and Screen [facility] 08/13 22:02 Order name: Urine --Ancillary (enter results) tt3 08/13 22:02 Order name: Urine Dipstick-Ancillary; Complete Time: 22:04 EDMS Administered Medications: 21:13 Drug: Augmentin (Amoxicillin-Clavulanate) 875 mg Route: PO; cr4 21:50 Follow up: Response: No adverse reaction cr4 Disposition: 08/14 08:01 Co-signature as Attending Physician, Shreyas Mera MD I agree with the assessment and anselmo plan of care. Disposition: 08/13/20 20:57 Hospitalization ordered by Rayo Seals for Observation. Preliminary diagnosis are Streptococcal pharyngitis, Iron deficiency anemia. - Bed requested for Telemetry/MedSurg (observation). - Status is Observation. cr4 - Condition is Stable. - Problem is new. - Symptoms have improved. Signatures: Dispatcher [employer] EDShreyas Torres MD MD cha Ruiz, Claudia, RN RN cr4 Meño Pan PA PA jr8 Larry Osman, MOP MAN-C MOP MAN-Cla1 Shani Andrade, RN RN cg Ebonie Jones, RN RN Corrections: (The following items were deleted from the chart) 08/13 21:14 20:57 Hospitalization Ordered by Rayo Seals DO for Observation. Preliminary cg diagnosis is Streptococcal pharyngitis; Iron deficiency anemia. Bed requested for Telemetry/MedSurg (observation). Status is Observation. Condition is Stable. Problem is new. Symptoms have improved. jr8 22:05 21:14 08/13/2020 20:57 Hospitalization Ordered by Rayo Seals DO for Observation. cr4 Preliminary diagnosis is Streptococcal pharyngitis; Iron deficiency anemia. Bed requested for Telemetry/MedSurg (observation). Status is Observation. Condition is Stable. Problem is new. Symptoms have improved. cg
[2020-08-13 21:27] LABS: Absolute Lymphocytes (CBC) 0.5 K/uL (0.7-4.9); Basophils % 0.3 % (0-1.3); Hematocrit 19.4 % (36.0-45.0); Lymphocytes % 7.8 % (15.3-44.8); MPV 8.3 fL (7.6-11.3); RBC Red Blood Cell Count 3.01 M/uL (3.86-4.86)
[2020-08-13] MEDS ORDERED: AMOX/K CLAV 875 MG TAB ONE (21:29)
[2020-08-13 21:39] LABS: Ferritin 1.2 ng/mL (8-388); Potassium 3.6 mmol/L (3.5-5.1)
[2020-08-13 22:02] LABS: Urine Blood 3+ (Negative); Urine Glucose Negative (Negative); Urine Protein Negative (Negative); Urine Specific Gravity 1.025 (1.005-1.030); Urine pH 5.5 (5.0-7.0)
[2020-08-13 22:10] LABS: Blood Morphology Comment NOTED (NOT SEEN); Platelet Estimate ADEQ; White Blood Cell Scan OK (OK)
[2020-08-13 22:11] LABS: Hypochromasia 2+; Ovalocytes 1+; Poikilocytosis 1+; Stomatocytes 1+; Teardrop Cell 1+
[2020-08-13 22:11] LABS: Urine Specific Gravity/Preg 1.025 (1.005-1.030)
[2020-08-13] MEDS ORDERED: ONDANSETRON 4 MG/2 ML VIAL IV PRN (22:12)
[2020-08-13] MEDS ORDERED: ACETAMINOPHEN 325 MG TABLET PO ONE (22:14)
[2020-08-13] MEDS ORDERED: DIPHENHYDRAMINE 50 MG/ML VIAL IV ONE (22:16)
[2020-08-13 22:35] VITALS: BMI 34.3
--- NOTE | 2020-08-13 22:59 | P.HP ---
Certification for Inpatient Patient admitted to: Observation With expected LOS: <2 Midnights Patient will require the following post-hospital care: None Practitioner: I am a practitioner with admitting privileges, knowledge of patient current condition, hospital course, and medical plan of care. Services: Services provided to patient in accordance with Admission requirements found in Title 42 Section 412.3 of the Code of Federal Regulations Patient History Date of Service: 08/13/20 Reason for admission: Symptomatic anemia History of Present Illness: 34-year-old female history of anemia, hypertension presents emergency department for generalized weakness and sore throat. Patient reports sore throat for the last few days and on going malaise, dyspnea on exertion. Patient history of multiple blood transfusions for iron deficiency anemia, reports that she has heavy and prolonged menstrual cycles. Patient evaluated in the emergency department found to be strep positive in addition having a hemoglobin of 5.8 hematocrit of 19.4 MCV 16.4 iron level 16 transferring saturation percent 3.7 ferritin 1.2 patient denies any melena, hematochezia, hematemesis, coffee- ground emesis, current vaginal bleeding. Reports multiple blood transfusions in the past. ED provider wishes to admit patient under observation for administration of blood products. Allergies No Known Allergies Allergy (Verified 10/09/19 02:02) Home Medications: Amlodipine Besylate/Benazepril [Amlodipine-Benazepril 5-10 mg] 1 tab PO DAILY 08/13/20 Gabapentin 300 mg PO DAILY 08/13/20 - Past Medical/Surgical History Has patient received pneumonia vaccine in the past: No Diabetic: No -: Iron deficiency anemia -: hypertension -: Anxiety -: section Psychosocial/ Personal History: Patient is employed, lives with family - Social History Smoking Status: Never smoker Alcohol use: No CD- Drugs: No Caffeine use: No Place of Residence: Home Review of Systems 10-point ROS is otherwise unremarkable General: Weakness, Malaise ENT: Throat Pain Respiratory: Shortness of Breath Physical Examination - Vital Signs Temperature: 98.1 F Blood Pressure: 129/79 Pulse: 79 Respirations: 18 Pulse Ox (%): 100 - Physical Exam General: Alert, In no apparent distress HEENT: Atraumatic, PERRLA, Mucous membr. moist/pink Neck: Supple, 2+ carotid pulse no bruit, No LAD Respiratory: Clear to auscultation bilaterally, Normal air movement Cardiovascular: Regular rate/rhythm, Normal S1 S2 Gastrointestinal: Normal bowel sounds, No tenderness Musculoskeletal: No tenderness Integumentary: No rashes Neurological: Normal speech, Normal strength at 5/5 x4 extr, Normal tone, Normal affect - Studies Laboratory Data (last 24 hrs) 08/13/20 20:07: Hgb 5.6 L* Microbiology Data (last 24 hrs): 08/13/20 19:19 Throat Group A Streptococcus Rapid Screen - Final Assessment and Plan - Plan Assessment Symptomatic iron-deficiency anemia likely secondary to menorrhagia Strep throat Hypertension Plan Symptomatic iron-deficiency anemia likely secondary to menorrhagia: Transfuse to hemoglobin level greater than 7, patient went to follow up with ELECT[employer] WORKER at discharge for evaluation and further management menorrhagia. Patient has not seen GI in the past, amendable to plan for follow up. DVT prophylaxis with SCDs. Strep throat: Continue with Augmentin p.o., patient will need prescription at discharge. Hypertension: Continue home meds. Discharge Plan: Home Plan to discharge in: 24 Hours - Advance Directives Does patient have a Living Will: No Does patient have a Durable POA for Healthcare: No - Code Status/Comfort Care Code Status Assessed: Yes (Full code) Critical Care: No Time Spent Managing Pts Care (In Minutes): 55
[2020-08-13] MEDS ORDERED: NA CHLORIDE 0.9% 250 ML ONE (23:46)
[2020-08-14] MEDS: ACETAMINOPHEN 500 MG TAB PO PRN ×2 (02:49→08:16)
[2020-08-14] MEDS ORDERED: NA CHLORIDE 0.9% 250 ML ONE (03:18)
[2020-08-14] MEDS ORDERED: KETOROLAC 30 MG/ML INJ IV ONE (04:30)
[2020-08-14] MEDS ORDERED: DIPHENHYDRAMINE 50 MG/ML VIAL IV ONE (04:30)
[2020-08-14] MEDS ORDERED: TRAMADOL HCL 50 MG TAB PO PRN (07:31)
--- NOTE | 2020-08-14 08:11 | P.DS ---
Admission Date: 08/13/20 Discharge Date: 08/14/20 Primary Care Provider: Dr. Vizcarra Disposition: ROUTINE DISCHARGE Discharge Condition: GOOD Reason for Admission: Symptomatic anemia Consultations: none Procedures: COVID: Negative Medical Problem List: Symptomatic iron-deficiency anemia likely secondary to menorrhagia Strep throat Hypertension Chronic pain Brief History of Present Illness: 34-year-old female history of anemia, hypertension presents emergency department for generalized weakness and sore throat. Patient reports sore throat for the last few days and on going malaise, dyspnea on exertion. Patient has had a history of multiple blood transfusions for iron deficiency anemia, reports that she has heavy and prolonged menstrual cycles. She has not seen gynecology for this. Patient evaluated in the emergency department found to be strep positive in addition having a hemoglobin of 5.8 hematocrit of 19.4 MCV 16.4 iron level 16 transferring saturation percent 3.7 ferritin 1.2 patient denies any melena, hematochezia, hematemesis, coffee-ground emesis, current vaginal bleeding. Reports multiple blood transfusions in the past. Patient admitted for further evaluation and treatment. Hospital Course: Patient presented with symptomatic iron deficiency anemia. This is likely related to menorrhagia. Hemoglobin 5.8. Patient required admission for transfusion and observation. Patient has done well. Patient given 2 units of packed red blood cells with improvement. At discharge will recommend to continue iron 325 mg 1 pill 3 times a day with stool softener daily. Recommend follow-up with PCP in 1 week to follow his hospitalization. Recommend to recheck CBC in 1 to 2 weeks to monitor her progress. We will also recommend patient to see gynecology as an outpatient for thorough woman examination with likely initiation of control medication to help with her menorrhagia. If her anemia persists in the future without any improvement on oral medication then patient may require IV iron. This can be done as an outpatient. Education on iron deficiency anemia and menorrhagia provided. Patient also found to have strep pharyngitis. Patient was positive for strep. At discharge patient will continue with Augmentin 875 mg 1 pill twice daily for 7 days. Patient will need to change her toothbrush. Education on strep pharyngitis provided. Patient may take Tylenol or ibuprofen as needed for pain. Patient with hypertension. Patient takes Norvasc/benazepril. Will recommend to discontinue benazepril as the patient is of childbearing age and benazepril with potential risks for malformations. At discharge, will recommend to continue Norvasc at 5 mg daily with the new medication hydrochlorothiazide 25 mg daily. Recommend to monitor blood pressure daily. Recommend to maintain blood pressure less than 130/80. Further adjustment in her medication can be done by her PCP. Recommend to recheck labBMP in 1 week to monitor her progress on hydrochlorothiazide. Patient with history of chronic pain. Patient takes Neurontin 300 mg twice daily. She may continue with this at discharge. Vital Signs/Physical Exam: Temp Pulse Resp BP Pulse Ox 99.8 F 94 H 18 150/84 H 99 08/14/20 04:00 08/14/20 04:00 08/14/20 04:00 08/14/20 04:00 08/14/20 04:00 General: Alert, In no apparent distress, Oriented x3, Cooperative HEENT: Atraumatic, Other (Patient reports sore throat) Neck: Supple Respiratory: Clear to auscultation bilaterally, Normal air movement Cardiovascular: Normal pulses, Regular rate/rhythm Gastrointestinal: Normal bowel sounds, No tenderness, No masses, No rebound, No guarding Integumentary: No tenderness/swelling Neurological: Normal speech, Normal strength at 5/5 x4 extr, Normal tone, Normal affect Laboratory Data at Discharge: WBC 6.50 K/uL (4.3-10.9) 08/13/20 21:06 Hgb 5.8 g/dL (12.0-15.0) L* 08/13/20 21:06 Hct 19.4 % (36.0-45.0) L* 08/13/20 21:06 Plt Count 221 K/uL (152-406) 08/13/20 21:06 Sodium 141 mmol/L (136-145) 08/13/20 21:06 Potassium 3.6 mmol/L (3.5-5.1) 08/13/20 21:06 BUN 17 mg/dL (7-18) 08/13/20 21:06 Creatinine 1.00 mg/dL (0.55-1.3) 08/13/20 21:06 Glucose 102 mg/dL (74-106) 08/13/20 21:06 Home Medications: Amlodipine [Norvasc*] 5 mg PO DAILY #30 tab 08/14/20 Amox/Clavulanate [Augmentin 875-125 Tab*] 875 mg PO BID #14 tab 08/14/20 Ascorbic Acid [Vitamin C*] 500 mg PO DAILY #30 tablet 08/14/20 Docusate [Colace Cap*] 100 mg PO DAILY #30 cap 08/14/20 Ferrous Sulfate [Ferrous Sulfate*] 325 mg PO TID #90 tab 08/14/20 Gabapentin 300 mg PO BID 08/14/20 hydroCHLOROthiazide [Hydrochlorothiazide] 25 mg PO DAILY #30 tablet 08/14/20 New Medications: Amox/Clavulanate [Augmentin 875-125 Tab*] 875 mg PO BID #14 tab Docusate [Colace Cap*] 100 mg PO DAILY #30 cap Ferrous Sulfate [Ferrous Sulfate*] 325 mg PO TID #90 tab hydroCHLOROthiazide [Hydrochlorothiazide] 25 mg PO DAILY #30 tablet Amlodipine [Norvasc*] 5 mg PO DAILY #30 tab Ascorbic Acid [Vitamin C*] 500 mg PO DAILY #30 tablet Physician Discharge Instructions: Patient presented with symptomatic iron deficiency anemia. This is likely related to menorrhagia. Hemoglobin 5.8. Patient required admission for transfusion and observation. Patient has done well. Patient given 2 units of packed red blood cells with improvement. At discharge will recommend to continue iron 325 mg 1 pill 3 times a day with stool softener daily. Recommend follow-up with PCP in 1 week to follow his hospitalization. Recommend to recheck CBC in 1 to 2 weeks to monitor her progress. We will also recommend patient to see gynecology as an outpatient for thorough woman examination with likely initiation of control medication to help with her menorrhagia. If her anemia persists in the future without any improvement on oral medication then patient may require IV iron. This can be done as an outpatient. Education on iron deficiency anemia and menorrhagia provided. Patient also found to have strep pharyngitis. Patient was positive for strep. At discharge patient will continue with Augmentin 875 mg 1 pill twice daily for 7 days. Patient will need to change her toothbrush. Education on strep pharyngitis provided. Patient may take Tylenol or ibuprofen as needed for pain. Patient with hypertension. Patient takes Norvasc/benazepril. Will recommend to discontinue benazepril as the patient is of childbearing age and benazepril with potential risks for malformations. At discharge, will recommend to continue Norvasc at 5 mg daily with the new medication hydrochlorothiazide 25 mg daily. Recommend to monitor blood pressure daily. Recommend to maintain blood pressure less than 130/80. Further adjustment in her medication can be done by her PCP. Recommend to recheck labBMP in 1 week to monitor her progress on hydrochlorothiazide. Patient with history of chronic pain. Patient takes Neurontin 300 mg twice daily. She may continue with this at discharge. Diet: AHA Activity: Ad jeanette Followup: Asya Talamantes DO [Primary Care Provider] - Time spent managing pt's care (in minutes): 55
[2020-08-14 08:17] VITALS: BP 151/97
[2020-08-14 08:36] LABS: Hematocrit 25.3 % (36.0-45.0)
[2020-08-14] MEDS ORDERED: GABAPENTIN 300 MG CAP PO SCH (09:00)
[2020-08-14] MEDS ORDERED: AMLODIPINE BESYLATE PO SCH (09:00)
[2020-08-14] MEDS ORDERED: AMLODIPINE 5 MG TAB PO SCH (09:00)
[2020-08-14] MEDS ORDERED: BENAZEPRIL PO SCH (09:00)
[2020-08-14] MEDS ORDERED: FERROUS SULFATE 325 MG TAB PO SCH (09:00)
[2020-08-14] MEDS ORDERED: [UNRECOGNIZED DRUG - OTHER] PO SCH (09:00)
[2020-08-14] MEDS ORDERED: ASCORBIC ACID 500 MG TABLET PO SCH (09:00)
[2020-08-14] MEDS ORDERED: AMOX/K CLAV 875 MG TAB PO SCH (09:00)
[2020-08-14] MEDS ORDERED: BENAZEPRIL 10 MG TAB PO SCH (09:00)
[2020-08-14 10:32] VITALS: TEMP 98.9
[2020-08-14 10:38] VITALS: O2SAT 99
== END 2020-08-14 11:00 | disposition home or self-care (01) ==
LOC: ER 18:25 → ERHOLD 21:05 → 2ND 21:41
PROVIDERS: ADMIT Family Medicine; ATTEND Family Medicine
DX: D50.9 Iron deficiency anemia, unspecified (principal); N92.0 Excessive and frequent menstruation with regular cycle; J02.0 Streptococcal pharyngitis; I10 Essential (primary) hypertension; G89.29 Other chronic pain; F41.9 Anxiety disorder, unspecified; Z20.822 Contact with and (suspected) exposure to COVID-19
CPT/HCPCS: 36430; 85025; 80048; 36415; 86900; 86850; 81025; 86901; 87081; 85018 ×2; 85014; 81003; 82728; 83540; 0240U; 84466; 99285; J1200 ×2; P9016 ×2; J7050 ×2; G0378 ×3

== ENCOUNTER 2020-09-22 12:53 | Emergency (ER) | payer OTHER ==
--- OUTSIDE RECORDS SUMMARY | 2020-09-22 12:56 | XMS REPORT | Continuity of Care Document ---
:[address] [facility] [place], [place] Address [address] [place] [address] Care Team Providers Name Role Phone Amanda Fajardo Attending Clinician Pat Owusu Attending Clinician Curtis Dutton Attending Clinician Problems Condition Condition Condition Status Onset Resolution Last Treating Co mments Source Name Details Category Date Date Treatment Clinician Date Coffee Coffee Disease Active [facility] ground ground 5-05 [facility] - em[facility] emesis 00:00: Medical 00 [place] Acute Acute Disease Active Overview: [facility] blood loss blood loss 5-05 [facility] [place] - [facility] from [facility] to [place] for acute blood loss anemia with [...] ic instabili ty. Already received 2units at [facility] in anticipat ion for transfer. Will need to perform serial CBCs q6hs and keep NPO with IV fluids.Aung Spencer etis, [id number] Gastroent erology and Hepatolog y [facility] Allergies, Adverse Reactions, Alerts This patient has no known allergies or adverse reactions. Social History Social Habit Start Date Stop Date Quantity Comments Source Sex Assigned At [facility] Medications This patient has no known medications. Procedures This patient has no known procedures. Encounters Start End Encounter Admission Attending Care Care Encounter Source Date/Time Date/Time Type Type Clinicians Facility Department ID 2020-05-09 2020-05-09 Emergency [facility] [id number] 00:11:00 03:03:00 Linda Ribera [id number] [place] [id number] [place] [id number] 2019-10-01 2019-10-01 Emergency Jesus, K [id number] 17:49:15 20:06:00 Pat Ribera [id number] [place] [id number] [place] [id number] 2018-12-30 2018-12-30 Emergency [id number] 14:58:03 17:46:00 Myrna Ribera [id number] [place] [id number] [place] [id number] Results This patient has no known results.
[2020-09-22] MEDS ORDERED: KETOROLAC 30 MG/ML INJ ONE (13:22)
--- NOTE | 2020-09-22 13:45 | ER ---
Nurse's Notes [facility] Name: Joyce Mera Age: 34 yrs Sex: Female : 1985 Arrival Date: 09/22/2020 Time: 12:56 Bed 6 Private MD: Guy Vizcarra Diagnosis: Superficial laceration external auditory canal left side Presentation: 09/22 13:01 Chief complaint: Patient states: Left ear bleeding upon waking, denies pain, denies jl7 trauma, reports loss of hearing and feeling like it needs to pop. Coronavirus screen: Client denies travel out of the [place] in the last 14 days. At this time, the client does not indicate any symptoms associated with coronavirus-19. Ebola Screen: No symptoms or risks identified at this time. Initial Sepsis Screen: Does the patient meet any 2 criteria? No. Patient's initial sepsis screen is negative. Does the patient have a suspected source of infection? No. Patient's initial sepsis screen is negative. Risk Assessment: Do you want to hurt yourself or someone else? Patient reports no desire to harm self or others. Onset of symptoms was September 22, 2020. 13:01 Method Of Arrival: Ambulatory 7 13:01 Acuity: ALICIA 4 jl7 Triage Assessment: 13:03 General: Appears in no apparent distress. uncomfortable, Behavior is calm, cooperative, jl7 appropriate for age. Pain: Denies pain. EENT: Ear canal w/ bleeding noted from left ear. 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 - Social history:: Smoking status: Patient denies any tobacco usage or history of. Screenin:40 Abuse screen: Denies threats or abuse. Denies injuries from another. Nutritional ld1 screening: No deficits noted. Tuberculosis screening: No symptoms or risk factors identified. Fall Risk None identified. Assessment: 13:40 General: Appears in no apparent distress. comfortable, Behavior is calm, cooperative, ld1 appropriate for age. Pain: Denies pain. Neuro: Level of Consciousness is awake, alert, obeys commands, Oriented to person, place, time, situation, Appropriate for age. Cardiovascular: Capillary refill < 3 seconds Patient's skin is warm and dry. Respiratory: Airway is patent Respiratory effort is even, unlabored, Respiratory pattern is regular, symmetrical. GI: Abdomen is round non-distended. : No signs and/or symptoms were reported regarding the genitourinary system. EENT: Tympanic membrane clear on left ear Ear canal w/ bleeding noted from left ear Blood in ear canal, Blood clot noted in left ear.. Derm: No signs and/or symptoms reported regarding the dermatologic system. Musculoskeletal: No signs and/or symptoms reported regarding the musculoskeletal system. Vital Signs: 13:01 BP 145 / 97; Pulse 77; Resp 17; Temp 97.9; Pulse Ox 99% ; Weight 88.45 kg; Height 5 ft. jl7 3 in. (160.02 cm); Pain 0/10; 13:40 BP 135 / 90; Pulse 74; Resp 18; Pulse Ox 100% on R/A; Pain 0/10; ld1 13:01 Body Mass Index 34.54 (88.45 kg, 160.02 cm) jl7 ED Course: 12:56 Patient arrived in ED. mr 12:56 Guy Vizcarra DO is Private Physician. mr 13:02 Triage completed. jl7 13:03 Arm band placed on right wrist. jl7 13:08 Meño Pan PA is PHCP. jr8 13:08 Aman Frazier MD is Attending Physician. jr8 13:40 Anais Chanel, RN is Primary Nurse. ld1 13:40 Patient has correct armband on for positive identification. Bed in low position. Call ld1 light in reach. Side rails up X 1. Pulse ox on. NIBP on. 13:40 No provider procedures requiring assistance completed. Patient did not have IV access ld1 during this emergency room visit. 13:42 Guy Vizcarra DO is Referral Physician. jr8 Administered Medications: No medications were administered Outcome: 13:44 Discharge ordered by . jr8 13:48 Discharged to home ambulatory. ld1 13:48 Condition: stable 13:48 Discharge instructions given to patient, Instructed on discharge instructions, follow up and referral plans. Demonstrated understanding of instructions, follow-up care. 13:48 Patient left the ED. ld1 Signatures: Dalila Nicolas mr Meño Pan PA PA jr8 Stefany Bustos RN RN jl7 Anais Chanel RN RN ld1
[2020-09-22 13:57] VITALS: BP 135/90; O2SAT 100
[2020-09-22 14:06] VITALS: TEMP 97.9
--- NOTE | 2020-09-23 13:54 | EDPHYS ---
Physician Documentation [facility] Name: Joyce Mera Age: 34 yrs Sex: Female : 1985 Arrival Date: 09/22/2020 Time: 12:56 Bed 6 Private MD: Guy Vizcarra ED Physician Aman Frazier HPI: 09/22 14:52 This 34 yrs old Female presents to ER via Ambulatory with complaints of Ear jr8 Bleeding. 14:52 Onset: The symptoms/episode began/occurred acutely, today. Modifying factors: The jr8 symptoms are alleviated by nothing, the symptoms are aggravated by nothing. Associated signs and symptoms: The patient has no apparent associated signs or symptoms. Severity of symptoms: At their worst the symptoms were mild in the emergency department the symptoms are unchanged. The patient has not experienced similar symptoms in the past. The patient has not recently seen a physician. Patient stated that she cleaned her ears last night. Woke up this morning feeling blood on her when she turned over and noticed that it was coming from her left ear. Denies pain or recent infection . 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 - Social history:: Smoking status: Patient denies any tobacco usage or history of. ROS: 14:52 Constitutional: Negative for fever, chills, and weight loss. jr8 14:52 Cardiovascular: Negative for chest pain, palpitations, and edema, Respiratory: Negative for shortness of breath, cough, wheezing, and pleuritic chest pain, Abdomen/GI: Negative for abdominal pain, nausea, vomiting, diarrhea, and constipation. 14:52 ENT: Positive for ear bleeding, Negative for drainage from ear(s), ear pain. 14:52 All other systems are negative. Exam: 14:52 Head/Face: Normocephalic, atraumatic. Eyes: Pupils equal round and reactive to light, jr8 extra-ocular motions intact. Lids and lashes normal. Conjunctiva and sclera are non-icteric and not injected. Cornea within normal limits. Periorbital areas with no swelling, redness, or edema. Neck: Trachea midline, no thyromegaly or masses palpated, and no cervical lymphadenopathy. Supple, full range of motion without nuchal rigidity, or vertebral point tenderness. No Meningismus. Cardiovascular: Regular rate and rhythm with a normal S1 and S2. No gallops, murmurs, or rubs. Normal PMI, no JVD. No pulse deficits. Respiratory: Lungs have equal breath sounds bilaterally, clear to auscultation and percussion. No rales, rhonchi or wheezes noted. No increased work of breathing, no retractions or nasal flaring. Skin: Warm, dry with normal turgor. Normal color with no rashes, no lesions, and no evidence of cellulitis. MS/ Extremity: Pulses equal, no cyanosis. Neurovascular intact. Full, normal range of motion. Neuro: Awake and alert, GCS 15, oriented to person, place, time, and situation. Motor strength 5/5 in all extremities. Sensory grossly intact. 14:52 ENT: External ear(s): are unremarkable, Ear canal(s): bleeding, clotted blood, in the left canal, TM's: are normal, Examination of the other ear shows no obvious abnormality, Nose: is normal, Mouth: is normal, Posterior pharynx: is normal. Vital Signs: 13:01 BP 145 / 97; Pulse 77; Resp 17; Temp 97.9; Pulse Ox 99% ; Weight 88.45 kg; Height 5 ft. jl7 3 in. (160.02 cm); Pain 0/10; 13:40 BP 135 / 90; Pulse 74; Resp 18; Pulse Ox 100% on R/A; Pain 0/10; ld1 13:01 Body Mass Index 34.54 (88.45 kg, 160.02 cm) jl7 MDM: 13:08 Patient medically screened. jr8 14:55 Data reviewed: vital signs, nurses notes, and as a result, I will discharge patient. jr8 Data interpreted: Pulse oximetry: on room air is 100 %. Interpretation: normal. Counseling: I had a detailed discussion with the patient and/or guardian regarding: the historical points, exam findings, and any diagnostic results supporting the discharge/admit diagnosis, the need for outpatient follow up, a family practitioner, to return to the emergency department if symptoms worsen or persist or if there are any questions or concerns that arise at home. ED course: Discussed with patient that she no longer should be using Q-tips for her ears as this is was cause the superficial lac to the canal. Recommended flushing kit if needed. To f/u with her pcp. If worse or something changes to come back. Patient good with this plan . Administered Medications: No medications were administered Disposition: 15:58 Co-signature as Attending Physician, Aman Frazier MD. rn Disposition: 09/22/20 13:44 Discharged to Home. Impression: Superficial laceration external auditory canal left side. - Condition is Stable. - Discharge Instructions: Earwax Buildup, Adult, Ear Irrigation. - Medication Reconciliation Form, Thank You Letter, Antibiotic Education, Prescription Opioid Use form. - Follow up: Guy Vizcarra DO; When: As needed; Reason: Recheck today's complaints, Continuance of care, Re-evaluation by your physician. - Problem is new. - Symptoms have improved. Signatures: Aman Frazier MD MD rn Roszak, Josh, PA PA jr8 Stefany Bustos RN RN jl7 Anais Chanel RN RN ld1 Corrections: (The following items were deleted from the chart) 13:48 13:44 09/22/2020 13:44 Discharged to Home. Impression: Superficial laceration external ld1 auditory canal left side. Condition is Stable. Forms are Medication Reconciliation Form, Thank You Letter, Antibiotic Education, Prescription Opioid Use. Follow up: Guy Vizcarra; When: As needed; Reason: Recheck today's complaints, Continuance of care, Re-evaluation by your physician. Problem is new. Symptoms have improved. jr8
== END 2020-09-22 13:48 | disposition home or self-care (01) ==
LOC: ER 12:53
DX: S01.312A Laceration without foreign body of left ear, initial encounter (principal); I10 Essential (primary) hypertension
CPT/HCPCS: 99283

== ENCOUNTER 2020-10-03 17:25 | Emergency (ER) | payer OTHER ==
--- OUTSIDE RECORDS SUMMARY | 2020-10-03 17:28 | XMS REPORT | Continuity of Care Document ---
:1985 Author Organization [facility] Address [address] [place] [address] Care Team Providers Name Role Phone Amanda Fajardo Attending Clinician Pat Owusu Attending Clinician Curtis Dutton Attending Clinician Problems Condition Condition Condition Status Onset Resolution Last Treating Co mments Source Name Details Category Date Date Treatment Clinician Date Coffee Coffee Disease Active [facility] ground ground 5-05 [facility] - em[facility] emesis 00:00: Medical 00 [place] Acute Acute Disease Active Overview: [facility] blood loss blood loss 5-05 In Vicky kes - [facility] 00[facility] transfer to [facility] from [facility] to [place] for acute blood loss anemia with [...] ic instabili ty. Already received 2units at [facility] in anticipat ion for transfer. Will need to perform serial CBCs q6hs and keep NPO with IV fluids.Aung Spencer etis, MDPGY6 Gastroent erology and Hepatolog y [facility] Allergies, Adverse Reactions, Alerts This patient has no known allergies or adverse reactions. Social History Social Habit Start Date Stop Date Quantity Comments Source Sex Assigned At [facility] Medications This patient has no known medications. Procedures This patient has no known procedures. Encounters Start End Encounter Admission Attending Care Care Encounter Source Date/Time Date/Time Type Type Clinicians Facility Department ID 2020-05-09 2020-05-09 Emergency [facility] [id number] 00:11:00 03:03:00 Linda Ribera [id number] [place] [id number] [place] [id number] 2019-10-01 2019-10-01 Emergency Jesus, K [id number] 17:49:15 20:06:00 Pat Ribera [id number] [place] [id number] [place] [id number] 2018-12-30 2018-12-30 [id number] 14:58:03 17:46:00 Myrna Ribera [id number] [place] [id number] [place] [id number] Results This patient has no known results.
[2020-10-03] MEDS ORDERED: NA CHLORIDE 0.9% 1,000 ML ONE (19:02)
[2020-10-03] MEDS ORDERED: ONDANSETRON 4 MG/2 ML VIAL ONE (19:10)
[2020-10-03] MEDS ORDERED: FAMOTIDINE 20 MG/2 ML VIAL IV ONE (19:11)
[2020-10-03 19:25] LABS: Urine Blood 3+ (Negative); Urine Glucose Negative (Negative); Urine Protein 2+ (Negative); Urine pH 5.5 (5.0-7.0)
[2020-10-03 19:31] LABS: Absolute Lymphocytes (CBC) 0.8 K/uL (0.7-4.9); Hematocrit 22.2 % (36.0-45.0); Lymphocytes % 21.3 % (15.3-44.8); MPV 8.9 fL (7.6-11.3); RBC Red Blood Cell Count 3.25 M/uL (3.86-4.86)
[2020-10-03 19:36] LABS: BUN Blood Urea Nitrogen 14 mg/dL (7-18); Bicarbonate 24 mmol/L (21-32); Glucose Level 132 mg/dL (74-106); Potassium 3.4 mmol/L (3.5-5.1); Sodium Level 140 mmol/L (136-145)
[2020-10-03 20:46] LABS: Blood Morphology Comment NOTED (NOT SEEN); Hypochromasia 1+; Platelet Estimate ADEQ; White Blood Cell Scan OK (OK)
[2020-10-03] MEDS ORDERED: HYDROCORTISONE SUC 100 MG INJ ONE (21:01)
[2020-10-03] MEDS ORDERED: NA CHLORIDE 0.9% 250 ML ONE (21:02)
[2020-10-03] MEDS ORDERED: ACETAMINOPHEN 325 MG TABLET ONE (21:02)
[2020-10-03] MEDS ORDERED: DIPHENHYDRAMINE 50 MG/ML VIAL ONE (21:02)
--- NOTE | 2020-10-04 00:01 | EDPHYS ---
Physician Documentation [facility] Name: Joyce Mera Age: 34 yrs Sex: Female : 1985 Arrival Date: 10/03/2020 Time: 17:28 Bed 14 Private MD: ED Physician So Alicia HPI: 10/03 18:24 This 34 yrs old Female presents to ER via Ambulatory with complaints of jmm Anemia, Weakness. 18:24 The patient presents with vaginal bleeding that is. Onset: The symptoms/episode jmm began/occurred gradually. Modifying factors: The symptoms are alleviated by nothing, the symptoms are aggravated by nothing. Associated signs and symptoms: Pertinent positives: vaginal bleeding. patient complains of weakness and fatigue along with vaginal bleeding. states needing blood transfusions in the past. . 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 - Social history:: Smoking status: Patient denies any tobacco usage or history of. ROS: 18:24 Constitutional: Negative for fever, chills, and weight loss, Cardiovascular: Negative jmm for chest pain, palpitations, and edema, Respiratory: Negative for shortness of breath, cough, wheezing, and pleuritic chest pain, Abdomen/GI: Negative for abdominal pain, nausea, vomiting, diarrhea, and constipation. 18:24 : Positive for vaginal bleeding. 18:24 All other systems are negative. Exam: 18:24 Constitutional: This is a well developed, well nourished patient who is awake, alert, jmm and in no acute distress. Head/Face: atraumatic. Eyes: EOMI, no conjunctival erythema appreciated ENT: Moist Mucus Membranes Neck: Trachea midline, Supple Chest/axilla: Normal chest wall appearance and motion. Cardiovascular: Regular rate and rhythm. No edema appreciated Respiratory: Normal respirations, no respiratory distress appreciated Abdomen/GI: Non distended, soft Back: Normal ROM Skin: General appearance color normal MS/ Extremity: Moves all extremities, no obvious deformities appreciated, no edema noted to the lower extremities Neuro: Awake and alert, normal gait Psych: Behavior is normal, Mood is normal, Patient is cooperative and pleasant Vital Signs: 17:43 BP 135 / 80; Pulse 95; Resp 16 S; Temp 97.3(TE); Pulse Ox 99% on R/A; Weight 70.31 kg jd3 (R); Height 5 ft. 4 in. (162.56 cm) (R); Pain 7/10; 19:00 BP 140 / 77; Pulse 74; Resp 16; Pulse Ox 100% on R/A; vg1 20:30 BP 141 / 86; Pulse 72; Resp 16; Pulse Ox 100% on R/A; vg1 21:50 BP 133 / 77; Pulse 64; Resp 16; Pulse Ox 100% on R/A; zb 22:50 BP 128 / 89; Pulse 67; Resp 16; Pulse Ox 100% on R/A; zb 17:43 Body Mass Index 26.61 (70.31 kg, 162.56 cm) jd3 MDM: 18:24 Patient medically screened. kelly 23:57 Data reviewed: vital signs, nurses notes. Counseling: I had a detailed discussion with kelly the patient and/or guardian regarding: the historical points, exam findings, and any diagnostic results supporting the discharge/admit diagnosis, lab results, the need for outpatient follow up, to return to the emergency department if symptoms worsen or persist or if there are any questions or concerns that arise at home. ED course: Patient is alert and non toxic in appearance in the ED. H/H slightly low, 1 unit given. Patient advised to follow up with her OBGYN for further evaluation. Patient understood and agrees with the plan of care. . 10/03 18:26 Order name: CBC with Diff [facility] 10/03 18:26 Order name: BMP [facility] 10/03 18:27 Order name: Type And Screen [facility] 10/03 18: Order name: CBC with Automated Diff; Complete Time: 21:03 [facility] 10/03 18:27 Order name: Basic Metabolic Panel; Complete Time: 19:40 [facility] 10/03 18:27 Order name: Type and Screen [facility] 10/03 19:25 Order name: Urine Dipstick-Ancillary; Complete Time: 19:40 [facility] 10/03 19:30 Order name: Urine --Ancillary (enter results); Complete Time: 19:[address] [facility] 10/03 19:59 Order name: Packed RBC Leukored [facility] 10/03 20:46 Order name: CBC Smear Scan; Complete Time: 21:03 [facility] 10/03 18:26 Order name: Urine Dipstick-Ancillary (obtain specimen); Complete Time: 19:22 [facility] 10/03 18:26 Order name: Saline Lock; Complete Time: 19:06 [facility] Administered Medications: 19:00 Drug: NS 0.9% 1000 ml Route: IV; Rate: 1 bolus; Site: right antecubital; vg1 19:00 Drug: Zofran (Ondansetron) 4 mg Route: IVP; Site: right antecubital; 1 19:03 Drug: Pepcid (famotidine) 20 mg Route: IVP; Site: right antecubital; 1 Disposition: 10/03/20 23:59 Discharged to Home. Impression: Other abnormal uterine and vaginal bleeding, Anemia, unspecified. - Condition is Stable. - Discharge Instructions: Anemia, Nonspecific, Blood Transfusion, Adult. - Medication Reconciliation Form, Thank You Letter, Antibiotic Education, Prescription Opioid Use form. - Follow up: Private Physician; When: 2 - 3 days; Reason: Recheck today's complaints, Continuance of care, Re-evaluation by your physician. Signatures: Dispatcher [employer] [facility] Lalit Kasper PA PA jmm Davies, Jonathon, RN RN Sheila Cortez RN RN vg1 Marty Odonnell Corrections: (The following items were deleted from the chart) 19:58 19:46 PACKED RBC LEUKORED -1+BB.LAB.BRZ ordered. [facility] 19:58 19:47 ABO/RH typing ordered. [facility] :58 19:47 Antibody Screen ordered. [facility] 10/04 00:04 10/03 23:59 10/03/2020 23:59 Discharged to Home. Impression: Other abnormal uterine and ak2 vaginal bleeding; Anemia, unspecified. Condition is Stable. Forms are Medication Reconciliation Form, Thank You Letter, Antibiotic Education, Prescription Opioid Use. Follow up: Private Physician; When: 2 - 3 days; Reason: Recheck today's complaints, Continuance of care, Re-evaluation by your physician. kelly
--- NOTE | 2020-10-04 00:01 | ER ---
Nurse's Notes [facility] Name: Joyce Mera Age: 34 yrs Sex: Female : 1985 Arrival Date: 10/03/2020 Time: 17:28 Bed 14 Private MD: Diagnosis: Other abnormal uterine and vaginal bleeding;Anemia, unspecified Presentation: 10/03 17:41 Chief complaint: Patient states: "I am anemic and I have had to have transfusions jd3 before because of this and I am feeling weak as a result of it.". Coronavirus screen: At this time, the client does not indicate any symptoms associated with coronavirus-19. Ebola Screen: Patient negative for fever greater than or equal to 101.5 degrees Fahrenheit, and additional compatible Ebola Virus Disease symptoms. Initial Sepsis Screen: Does the patient meet any 2 criteria? No. Patient's initial sepsis screen is negative. Does the patient have a suspected source of infection? No. Patient's initial sepsis screen is negative. Risk Assessment: Do you want to hurt yourself or someone else? Patient reports no desire to harm self or others. Onset of symptoms was October 02, 2020. 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 - Social history:: Smoking status: Patient denies any tobacco usage or history of. Screenin:09 Abuse screen: Denies threats or abuse. Abuse screen:. Nutritional screening: No vg1 deficits noted. Tuberculosis screening: No symptoms or risk factors identified. Fall Risk No fall in past 12 months (0 pts). No secondary diagnosis (0 pts). IV access (20 points). Ambulatory Aid- None/Bed Rest/Nurse Assist (0 pts). Gait- Normal/Bed Rest/Wheelchair (0 pts) Mental Status- Oriented to own ability (0 pts). Total Parsons Fall Scale indicates No Risk (0-24 pts). Assessment: 18:43 General: Appears in no apparent distress. comfortable, Behavior is calm, cooperative. vg1 Pain: Complains of pain in lower back and lower ABD Pain currently is 8 out of 10 on a pain scale. Quality of pain is described as crampy, Pain began 1 day ago. Neuro: Level of Consciousness is awake, alert, obeys commands, Oriented to person, place, time, situation. Cardiovascular: Patient's skin is warm and dry. Respiratory: Airway is patent Respiratory effort is even, unlabored. GI: Reports lower abdominal pain, nausea, Patient currently denies vomiting. : No signs and/or symptoms were reported regarding the genitourinary system. EENT: Sclera/Cornea white. Derm: Skin is intact, is healthy with good turgor. Musculoskeletal: Circulation, motion, and sensation intact. 20:33 Reassessment: Patient appears in no apparent distress at this time. No changes from vg1 previously documented assessment. Patient and/or family updated on plan of care and expected duration. Pain level reassessed. Patient is alert, oriented x 3, equal unlabored respirations, skin warm/dry/pink. 21:38 Reassessment: Blood transfusion consent form is signed. Received first unit at 2112. vg1 Began blood infusion at 2119. Please refer to Transfusion Record for vitals. 22:00 Reassessment: Patient appears in no apparent distress at this time. Patient and/or vg1 family updated on plan of care and expected duration. Pain level reassessed. Patient is alert, oriented x 3, equal unlabored respirations, skin warm/dry/pink. 23:12 Reassessment: Patient appears in no apparent distress at this time. Patient and/or zb family updated on plan of care and expected duration. Pain level reassessed. Patient is alert, oriented x 3, equal unlabored respirations, skin warm/dry/pink. blood continue to infuse no reaction at this time. Vital Signs: 17:43 BP 135 / 80; Pulse 95; Resp 16 S; Temp 97.3(TE); Pulse Ox 99% on R/A; Weight 70.31 kg jd3 (R); Height 5 ft. 4 in. (162.56 cm) (R); Pain 7/10; 19:00 BP 140 / 77; Pulse 74; Resp 16; Pulse Ox 100% on R/A; vg1 20:30 BP 141 / 86; Pulse 72; Resp 16; Pulse Ox 100% on R/A; vg1 21:50 BP 133 / 77; Pulse 64; Resp 16; Pulse Ox 100% on R/A; zb 22:50 BP 128 / 89; Pulse 67; Resp 16; Pulse Ox 100% on R/A; zb 17:43 Body Mass Index 26.61 (70.31 kg, 162.56 cm) jd3 ED Course: 17:28 Patient arrived in ED. mr 17:42 Triage completed. jd3 17:44 Arm band placed on. jd3 18:18 Lalit Kasper PA is PHCP. [facility] 18:18 So Alicia MD is Attending Physician. tremaine 18:35 Sheila Andrade RN is Primary Nurse. vg1 18:58 Initial lab(s) drawn, by mi, sent to lab. Inserted saline lock: 20 gauge in right vg1 antecubital area, using aseptic technique. Blood collected. 19:10 Patient has correct armband on for positive identification. Bed in low position. Call vg1 light in reach. Side rails up X2. Adult w/ patient. 19:19 Primary Nurse role handed off by Sheila Andrade RN mw2 19:22 Sheila Andrade RN is Primary Nurse. vg1 22:05 Report given to REJI Gamble. vg1 23:19 Primary Nurse role handed off by Sheila Andrade RN zb 23:19 Lashaun Baeza RN is Primary Nurse. zb Administered Medications: 19:00 Drug: NS 0.9% 1000 ml Route: IV; Rate: 1 bolus; Site: right antecubital; vg1 19:00 Drug: Zofran (Ondansetron) 4 mg Route: IVP; Site: right antecubital; vg1 19:03 Drug: Pepcid (famotidine) 20 mg Route: IVP; Site: right antecubital; vg1 Outcome: 23:59 Discharge ordered by MD. mendoza 10/04 00:04 Discharged to home ambulatory. ak2 Condition: good Discharge instructions given to patient. 00:04 Patient left the ED. ak2 Signatures: Lalit Kasper PA PA jmm Rivera, Mary mr GonzalezCornell, RN RN jd3 Bronwyn Ruano mw2 Sheila Andrade RN RN vg1 Lashaun Baeza RN RN Marty Shea2 Corrections: (The following items were deleted from the chart) 10/03 21:39 21:38 Reassessment: Received first unit at 2112. Began blood infusion at 2119 vg1 vg1 22:00 21:38 Reassessment: Received first unit at 2112. Began blood infusion at 2119. Please vg1 refer to Transfusion Record for vitals vg1
[2020-10-04 00:15] VITALS: TEMP 97.3
[2020-10-04 00:16] VITALS: O2SAT 100
[2020-10-04 00:20] VITALS: BP 128/89
== END 2020-10-04 00:04 | disposition home or self-care (01) ==
LOC: ER 17:25
DX: D64.9 Anemia, unspecified (principal); N93.8 Other specified abnormal uterine and vaginal bleeding; F41.9 Anxiety disorder, unspecified; I10 Essential (primary) hypertension
CPT/HCPCS: 85025; 80048; 36415; 86900; 86850; 81025; 86901; 81003; J1200; P9016; J7050; J7030; J1720; J2405; 96374; 96375; 99284

== ENCOUNTER 2020-12-04 03:26 | Emergency (ER) | payer OTHER ==
--- OUTSIDE RECORDS SUMMARY | 2020-12-04 03:30 | XMS REPORT | Continuity of Care Document ---
:1985 Author Organization [facility] Address [address] [place] [address] Care Team Providers Name Role Phone Amanda Fajardo Attending Clinician Pat Owusu Attending Clinician Curtis Dutton Attending Clinician Problems Condition Condition Condition Status Onset Resolution Last Treating Co mments Source Name Details Category Date Date Treatment Clinician Date Coffee Coffee Disease Active [facility] ground ground 5-05 [facility] - emesis emesis 00:00: Medical 00 [place] Acute Acute Disease Active Overview: [facility] blood loss blood loss 5-05 [facility] transfer to [facility] from [facility] to [place] on for acute blood loss anemia with [...] ic instabili ty. Already received 2units at [facility] in anticipat ion for transfer. Will need to perform serial CBCs q6hs and keep NPO with IV fluids.Aung Spencer etis, [id number] Gastroent erology and Hepatolog y [facility] Allergies, Adverse Reactions, Alerts This patient has no known allergies or adverse reactions. Social History Social Habit Start Date Stop Date Quantity Comments Source Sex Assigned At [facility] Medications This patient has no known medications. Procedures This patient has no known procedures. Encounters Start End Encounter Admission Attending Care Care Encounter Source Date/Time Date/Time Type Type Clinicians Facility Department ID 2020-05-09 2020-05-09 Emergency [facility] [id number] 00:11:00 03:03:00 Linda Ribera [id number] [place] [id number] [place] [id number] 2019-10-01 2019-10-01 Emergency Jesus, K [id number] 17:49:15 20:06:00 Pat Ribera [id number] [place] [id number] [place] [id number] 2018-12-30 2018-12-30 Emergency [id number] 14:58:03 17:46:00 Myrna Ribera [id number] [place] [id number] [place] [id number] Results This patient has no known results.
[2020-12-04 03:59] LABS: Urine Blood 3+ (Negative); Urine Glucose Negative (Negative); Urine Protein 3+ (Negative)
[2020-12-04 04:08] LABS: Absolute Lymphocytes (CBC) 1.3 K/uL (0.7-4.9); Basophils % 1.1 % (0-1.3); Hematocrit 22.2 % (36.0-45.0); Lymphocytes % 28.4 % (15.3-44.8); MPV 8.2 fL (7.6-11.3); RBC Red Blood Cell Count 3.37 M/uL (3.86-4.86)
[2020-12-04 04:11] LABS: Protime INR 0.95
[2020-12-04 04:23] LABS: Urine Amorphous Sediment 2+ /HPF (NONE SEEN); Urine Bacteria >50 /HPF (<20); Urine Mucus 2+ /HPF (NONE SEEN); Urine RBC TNTC /HPF (NONE SEEN)
[2020-12-04 04:33] LABS: ALT/SGPT 24 U/L (12-78); AST/SGOT 16 U/L (15-37); Alkaline Phosphatase 103 U/L (45-117); BUN Blood Urea Nitrogen 15 mg/dL (7-18); Bicarbonate 24 mmol/L (21-32); Bilirubin Direct < 0.1 mg/dL (0-0.2); Bilirubin Total 0.3 mg/dL (0.2-1.0); Glucose Level 113 mg/dL (74-106); NT PRO-BNP 184 pg/mL (<125); Potassium 3.3 mmol/L (3.5-5.1); Protein, Total 7.5 g/dL (6.4-8.2); Sodium Level 141 mmol/L (136-145); Troponin (Emerg Dept Use Only) < 0.02 ng/mL (0.0-0.045)
[2020-12-04 04:36] LABS: Blood Morphology Comment NOTED (NOT SEEN); Platelet Estimate ADEQ; White Blood Cell Scan OK (OK)
[2020-12-04 04:37] LABS: Anisocytosis 1+; Hypochromasia 2+; Stomatocytes 1+
[2020-12-04] MEDS ORDERED: CEFTRIAXONE/SWI 1gm 1 GM/10 ML SYR ONE (05:00)
[2020-12-04] MEDS ORDERED: NA CHLORIDE 0.9% 1,000 ML ONE (05:05)
[2020-12-04] MEDS ORDERED: NA CHLORIDE 0.9% 250 ML ONE (07:32)
--- NOTE | 2020-12-04 07:52 | EDPHYS ---
Physician Documentation [facility] Name: Joyce Mera Age: 35 yrs Sex: Female : 1985 Arrival Date: 12/04/2020 Time: 03:27 Bed 25 Private MD: Shreyas Damon HPI: 12/04 03:45 This 35 yrs old Female presents to ER via Wheelchair with complaints of mh7 Passed Out Prior To Arrival, Anemia. 03:45 The patient has experienced syncope, collapsed, lost consciousness. Onset: The mh7 symptoms/episode began/occurred today. Duration: This was a single episode, that lasted 10 second(s). Context: the episode(s) was witnessed, by no one, occurred at home, occurred while the patient was standing, Just prior to the episode the patient experienced dizziness, lightheadedness. Associated injury: The patient did not suffer any apparent associated injury. Associated signs and symptoms: Pertinent negatives: abdominal pain, agitation, ataxia, blurred vision, chest pain, combativeness, confusion, diaphoresis, diarrhea, headache, nausea, numbness, palpitations, seizure, shortness of breath, tingling, vertigo, vomiting, weakness. Current symptoms: Dizziness. The patient has experienced similar episodes in the past, several times. Patient reports a history of anemia and heavy menstrual cycles. She states that she started her menstrual cycle yesterday was having intermittent dizziness. She states that she fell after taking a shower and passed out briefly. She denies any headache, neck pain, chest pain, abdominal pain, shortness of breath, fever, cough, nausea, vomiting, numbness/tingling, or focal weakness. She has had similar issues multiple times in the past and has received blood transfusions.. [employer]: 03:39 LMP 12/04/2020 em Historical: - Allergies: 03:39 No Known Allergies; em - Home Meds: 03:39 amlodipine oral [Active]; Iron CR Oral [Active]; gabapentin Oral [Active]; em - PMHx: 03:39 Anemia; Anxiety; Hypertension; em - Immunization history:: Client reports having NOT received the Covid vaccine. - Social history:: Smoking status: Patient denies any tobacco usage or history of. ROS: 03:45 Constitutional: Negative for fever, chills, and weight loss, Eyes: Negative for injury, mh7 pain, redness, and discharge, ENT: Negative for injury, pain, and discharge, Neck: Negative for injury, pain, and swelling, Cardiovascular: Negative for chest pain, palpitations, and edema, Respiratory: Negative for shortness of breath, cough, wheezing, and pleuritic chest pain, Abdomen/GI: Negative for abdominal pain, nausea, vomiting, diarrhea, and constipation, Back: Negative for injury and pain, MS/Extremity: Negative for injury and deformity, Skin: Negative for injury, rash, and discoloration, Neuro: Negative for headache, weakness, numbness, tingling, and seizure, Psych: Negative for depression, anxiety, suicide ideation, homicidal ideation, and hallucinations, Allergy/Immunology: Negative for hives, rash, and allergies, Endocrine: Negative for neck swelling, polydipsia, polyuria, polyphagia, and marked weight changes, Hematologic/Lymphatic: Negative for swollen nodes, abnormal bleeding, and unusual bruising. Exam: 03:45 Constitutional: This is a well developed, well nourished patient who is awake, alert, mh7 and in no acute distress. Head/Face: Normocephalic, atraumatic. Eyes: Pupils equal round and reactive to light, extra-ocular motions intact. Lids and lashes normal. Conjunctiva and sclera are non-icteric and not injected. Cornea within normal limits. Periorbital areas with no swelling, redness, or edema. Neck: Trachea midline, no thyromegaly or masses palpated, and no cervical lymphadenopathy. Supple, full range of motion without nuchal rigidity, or vertebral point tenderness. No Meningismus. Chest/axilla: Normal chest wall appearance and motion. Nontender with no deformity. No lesions are appreciated. Cardiovascular: Regular rate and rhythm with a normal S1 and S2. No gallops, murmurs, or rubs. Normal PMI, no JVD. No pulse deficits. Respiratory: Lungs have equal breath sounds bilaterally, clear to auscultation and percussion. No rales, rhonchi or wheezes noted. No increased work of breathing, no retractions or nasal flaring. Abdomen/GI: Soft, non-tender, with normal bowel sounds. No distension or tympany. No guarding or rebound. No evidence of tenderness throughout. Back: No spinal tenderness. No costovertebral tenderness. Full range of motion. Skin: Warm, dry with normal turgor. Normal color with no rashes, no lesions, and no evidence of cellulitis. MS/ Extremity: Pulses equal, no cyanosis. Neurovascular intact. Full, normal range of motion. Neuro: Awake and alert, GCS 15, oriented to person, place, time, and situation. Cranial nerves II-XII grossly intact. Motor strength 5/5 in all extremities. Sensory grossly intact. Cerebellar exam normal. Normal gait. Psych: Awake, alert, with orientation to person, place and time. Behavior, mood, and affect are within normal limits. 08:17 ECG was reviewed by the Attending Physician. [facility] Vital Signs: 03:37 BP 144 / 72; Pulse 94; Resp 18; Temp 98.4(O); Pulse Ox 100% on R/A; Weight 88.45 kg; em Height 5 ft. 4 in. (162.56 cm); Pain 0/10; 07:50 BP 144 / 89; Pulse 79; Resp 15; Temp 97.4; Pulse Ox 100% ; jl7 09:32 BP 134 / 89; Pulse 73; Resp 15; Temp 97.1; Pulse Ox 100% ; jl7 03:37 Body Mass Index 33.47 (88.45 kg, 162.56 cm) em MDM: 07:17 Transition of care: After a detail discussion of the patient's case, care is [facility] transferred to Shreyas Mera MD. 07:35 Patient medically screened. [facility] 07:37 Differential Diagnosis: cardiac arrhythmia, emotional response, GI bleed, , anselmo vasovagal episode. Data reviewed: vital signs, nurses notes, lab test result(s), EKG, radiologic studies, CT scan, plain films. Data interpreted: vehicle monitor technician: rate is 94 beats/min, rhythm is regular. Test interpretation: by ED physician or midlevel provider: ECG, plain radiologic studies. Counseling: I had a detailed discussion with the patient and/or guardian regarding: the historical points, exam findings, and any diagnostic results supporting the discharge/admit diagnosis, lab results, the need for outpatient follow up, for definitive care, an OB/Gyne specialist. 12/04 03:43 Order name: Basic Metabolic Panel [facility] 12/04 03:43 Order name: CBC with Diff; Complete Time: 05:04 [facility] 12/04 03:43 Order name: LFT's; Complete Time: 04:35 [facility] 12/04 03:43 Order name: Magnesium; Complete Time: 04:35 [facility] 12/04 03:43 Order name: NT PRO-BNP; Complete Time: 04:35 [facility] 12/04 03:43 Order name: PT-INR; Complete Time: 04:24 [facility] 12/04 03:43 Order name: Troponin (emerg Dept Use Only); Complete Time: 04:35 [facility] 12/04 03:44 Order name: Basic Metabolic Panel; Complete Time: 04:35 [facility] 12/04 03:44 Order name: Type And Screen [facility] 12/04 03:58 Order name: Urine Dipstick-Ancillary; Complete Time: 04:24 [facility] 12/04 03:59 Order name: Urine Microscopic Only; Complete Time: 04:24 3 12/04 03:59 Order name: Urine Culture [facility] 12/04 04:02 Order name: Urine --Ancillary (enter results); Complete Time: 04:24 [facility] 12/04 04:20 Order name: CBC Smear Scan; Complete Time: 05:04 [facility] 12/04 03:43 Order name: XRAY Chest (1 view) [facility] 12/04 03:43 Order name: EKG; Complete Time: 03:44 [facility] 12/04 03:43 Order name: Cardiac monitoring; Complete Time: 04:00 [facility] 12/04 03:43 Order name: EKG - Nurse/Tech; Complete Time: 04:08 [facility] 12/04 03:43 Order name: IV Saline Lock; Complete Time: 03:54 [facility] 12/04 03:44 Order name: CT Head Brain wo Cont [facility] 12/04 05:34 Order name: Packed RBC Leukored [facility] 12/04 03:43 Order name: Labs collected and sent; Complete Time: 03:54 [facility] 12/04 03:43 Order name: O2 Per Protocol; Complete Time: 04:00 [facility] 12/04 03:43 Order name: O2 Sat Monitoring; Complete Time: 03:54 [facility] 12/04 03:43 Order name: Urine Dipstick-Ancillary (obtain specimen); Complete Time: 03:58 [facility] 12/04 03:43 Order name: Urine Test (obtain specimen); Complete Time: 03:58 [facility] 12/04 06:03 Order name: Transfuse; Complete Time: 08:27 mh7 EC:17 Rate is 72 beats/min. Rhythm is regular. QRS [place] is Normal. [place] interval is normal. QRS anselmo interval is normal. QT interval is normal. No Q waves. T waves are Normal. No ST changes noted. Clinical impression: NSR w/ Non-specific ST/T Changes and No evidence of ischemia. Interpreted by me. Reviewed by me. Administered Medications: 04:40 Drug: Rocephin (cefTRIAXone) 1 grams Route: IV; Rate: per protocol; Site: right bs2 antecubital; 04:43 Follow up: Response: No adverse reaction; IV Status: Completed infusion jl7 04:41 Drug: NS 0.9% 1000 ml Route: IV; Rate: 1000 ml; Site: right antecubital; bs2 07:00 Follow up: Response: No adverse reaction; IV Status: Completed infusion; IV Intake: jl7 1000ml 08:15 Drug: Cipro (ciprofloxacin) 500 mg Route: PO; jl7 08:27 Follow up: Response: No adverse reaction jl7 08:15 Drug: Potassium Effervescent Tablet 25 mEq Route: PO; jl7 08:27 Follow up: Response: No adverse reaction jl7 08:15 Drug: Ibuprofen 600 mg Route: PO; jl7 09:33 Follow up: Response: No adverse reaction; Pain is decreased jl7 Disposition Summary: 12/04/20 07:51 Discharge Ordered Location: Home anselmo Problem: new anselmo Symptoms: have improved anselmo Condition: Stable anselmo Diagnosis - Abnormal uterine and vaginal bleeding, unspecified anselmo - UTI/ Urinary tract infection, site not specified anselmo - Hypokalemia anselmo - Syncope Near anselmo Followup: anselmo - With: Private Physician - When: 2 - 3 days - Reason: Recheck today's complaints, Continuance of care, Re-evaluation by your physician Followup: anselmo - With: Danika Tan MD - When: 2 - 3 days - Reason: Recheck today's complaints, Re-evaluation by your physician Discharge Instructions: - Discharge Summary Sheet anselmo - Abnormal Uterine Bleeding anselmo - Potassium Content of Foods anselmo - Dysuria anselmo - Urinary Tract Infection, Adult anselmo - Urinary Tract Infection, Adult, [id number] anselmo - Hypokalemia anselmo Forms: - Medication Reconciliation Form anselmo - Thank You Letter anselmo - Antibiotic Education anselmo - Prescription Opioid Use anselmo - Work release form jl7 Prescriptions: - Cipro 500 mg Oral Tablet - take 1 tablet by ORAL route every 12 hours for 7 days; 14 tablet; Refills: 0, [facility] Product Selection Permitted - Ibuprofen 600 mg Oral Tablet - take 1 tablet by ORAL route every 6 hours As needed take with food; 21 tablet; anselmo Refills: 0, Product Selection Permitted Signatures: Dispatcher [employer] EDSrheyas Torres MD MD cha Munoz, Edgar RN RN em Larry Osman, DATA MANAGEMENT-C DATA MANAGEMENT-Cla1 Stefany Bustos RN RN jl7 Tima Solano MD MD 7 Maria Esther Pena RN RN bs2 Corrections: (The following items were deleted from the chart) 05:33 04:25 PACKED RBC LEUKORED -1+BB.LAB.BRZ ordered. EDMS EDMS 05:33 04:25 ABO/RH typing ordered. EDMS EDMS 05:33 04:25 Antibody Screen ordered. EDMS EDMS
--- NOTE | 2020-12-04 07:52 | ER ---
Nurse's Notes [facility] Name: Joyce Mera Age: 35 yrs Sex: Female : 1985 Arrival Date: 12/04/2020 Time: 03:27 Bed 25 Private MD: Diagnosis: Abnormal uterine and vaginal bleeding, unspecified;UTI/ Urinary tract infection, site not specified;Hypokalemia;Syncope Near Presentation: 12/04 03:37 Chief complaint: Patient states: was getting out of the shower, pt is on her period, em had some blood clots come out and became dizzy, reports having a syncopal episode after becoming dizzy, has hx of anemia, last transfusion was in August. Coronavirus screen: Client denies travel out of the [place] in the last 14 days. Ebola Screen: Patient negative for fever greater than or equal to 101.5 degrees Fahrenheit, and additional compatible Ebola Virus Disease symptoms Patient denies exposure to infectious person. Patient denies travel to an Ebola-affected area in the 21 days before illness onset. No symptoms or risks identified at this time. Initial Sepsis Screen: Does the patient meet any 2 criteria? No. Patient's initial sepsis screen is negative. Does the patient have a suspected source of infection? No. Patient's initial sepsis screen is negative. Risk Assessment: Do you want to hurt yourself or someone else? Patient reports no desire to harm self or others. Onset of symptoms was December 04, 2020. 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 - Social history:: Smoking status: Patient denies any tobacco usage or history of. Screenin:40 Abuse screen: Denies threats or abuse. Denies injuries from another. Nutritional bs2 screening: No deficits noted. Tuberculosis screening: No symptoms or risk factors identified. Fall Risk None identified. Assessment: 03:40 General: Appears in no apparent distress. comfortable, obese, well groomed, well bs2 developed, well nourished, Behavior is calm, cooperative, appropriate for age. Pain: Denies pain. Neuro: No deficits noted. Neuro: Reports a syncopal episode. Cardiovascular: No deficits noted. Respiratory: No deficits noted. GI: No deficits noted. : Reports vaginal bleeding that is with clots, heavy flow pt states she has anemia and has had to have transfusions after heavy periods before and her last transfusion was in August. EENT: No deficits noted. Derm: No deficits noted. Musculoskeletal: No deficits noted. 07:19 Reassessment: Patient appears in no apparent distress at this time. No changes from jl7 previously documented assessment. Patient and/or family updated on plan of care and expected duration. Pain level reassessed. Neuro: Level of Consciousness is awake, alert, obeys commands, Oriented to person, place, time, situation. Cardiovascular: Patient's skin is warm and dry. Respiratory: Airway is patent Respiratory effort is even, unlabored, Respiratory pattern is regular, symmetrical. Derm: Skin is pink, warm \T\ dry. 08:30 Reassessment: Pt will be discharged once transfusion is complete. jl7 Vital Signs: 03:37 BP 144 / 72; Pulse 94; Resp 18; Temp 98.4(O); Pulse Ox 100% on R/A; Weight 88.45 kg; em Height 5 ft. 4 in. (162.56 cm); Pain 0/10; 07:50 BP 144 / 89; Pulse 79; Resp 15; Temp 97.4; Pulse Ox 100% ; jl7 09:32 BP 134 / 89; Pulse 73; Resp 15; Temp 97.1; Pulse Ox 100% ; jl7 03:37 Body Mass Index 33.47 (88.45 kg, 162.56 cm) em ED Course: 03:27 Patient arrived in ED. bp1 03:36 Tima Solano MD is Attending Physician. mh7 03:39 Triage completed. em 03:39 Arm band placed on. em 03:48 Maria Esther Pena, RN is Primary Nurse. bs2 03:51 Troponin (emerg Dept Use Only) Sent. bs2 03:51 PT-INR Sent. bs2 03:51 NT PRO-BNP Sent. bs2 03:54 Magnesium Sent. bs2 03:54 LFT's Sent. bs2 03:54 CBC with Diff Sent. bs2 03:57 XRAY Chest (1 view) In Process Unspecified. EDMS 04:00 Basic Metabolic Panel Sent. bs2 04:00 CT Head Brain wo Cont Sent. bs2 04:00 Urine Microscopic Only Sent. bs2 04:00 Urine Culture Sent. bs2 04:01 Initial lab(s) drawn, by me, sent to lab. Urine collected: clean catch specimen, blood tt3 tinged. Inserted saline lock: 20 gauge in right antecubital area, using aseptic technique. Blood collected. 04:06 CT Head Brain wo Cont In Process Unspecified. EDMS 06:05 Patient has correct armband on for positive identification. Placed in gown. Bed in low bs2 position. Call light in reach. Side rails up X2. Adult w/ patient. school bus monitor on. Pulse ox on. NIBP on. Warm blanket given. Pillow given. 07:35 Attending Physician role handed off by Tima Solano MD anselmo 07:35 Shreyas Mera MD is Attending Physician. anselmo 07:51 Danika Tna MD is Referral Physician. anselmo 09:32 No provider procedures requiring assistance completed. IV discontinued, intact, jl7 bleeding controlled, No redness/swelling at site. Pressure dressing applied. Administered Medications: 04:40 Drug: Rocephin (cefTRIAXone) 1 grams Route: IV; Rate: per protocol; Site: right bs2 antecubital; 04:43 Follow up: Response: No adverse reaction; IV Status: Completed infusion jl7 04:41 Drug: NS 0.9% 1000 ml Route: IV; Rate: 1000 ml; Site: right antecubital; bs2 07:00 Follow up: Response: No adverse reaction; IV Status: Completed infusion; IV Intake: jl7 1000ml 08:15 Drug: Cipro (ciprofloxacin) 500 mg Route: PO; jl7 08:27 Follow up: Response: No adverse reaction jl7 08:15 Drug: Potassium Effervescent Tablet 25 mEq Route: PO; jl7 08:27 Follow up: Response: No adverse reaction jl7 08:15 Drug: Ibuprofen 600 mg Route: PO; jl7 09:33 Follow up: Response: No adverse reaction; Pain is decreased jl7 Intake: 07:00 IV: 1000ml; Total: 1000ml. jl7 Outcome: 07:51 Discharge ordered by . anselmo 09:32 Discharged to home ambulatory. jl7 09:32 Condition: stable 09:32 Discharge instructions given to patient, Instructed on discharge instructions, follow up and referral plans. medication usage, Demonstrated understanding of instructions, follow-up care, medications, Prescriptions given X 3. 09:34 Patient left the ED. jl7 Signatures: Dispatcher [employer] EDShreyas Torres MD MD cha Munoz, Edgar, RN RN Stefany Reeves RN RN jl7 Anila Haines Maurice, MD MD 7 Crispin Gamez tt3 Maria Esther Pena RN RN bs2 Corrections: (The following items were deleted from the chart) 07:50 07:19 BP 144 / 89; Pulse 79bpm; Resp 15bpm; Pulse Ox 100%; Temp 97.4F; jl7 jl7
[2020-12-04] MEDS ORDERED: IBUPROFEN 200 MG TAB PO ONE (08:33)
[2020-12-04] MEDS ORDERED: CIPROFLOXACIN HCL 500 MG TAB ONE (08:33)
[2020-12-04] MEDS ORDERED: POTASSIUM 25 MEQ EFFERV TAB ONE (08:33)
[2020-12-04] MEDS ORDERED: IBUPROFEN 400 MG TAB ONE (08:33)
--- NOTE | 2020-12-04 09:22 | RAD REPORT ---
EXAM DESCRIPTION: Samir Single View12/04/2020 3:58 am CLINICAL HISTORY: Dizziness and anemia COMPARISON: 2019 FINDINGS: The lungs appear clear of acute infiltrate. The heart is normal size IMPRESSION: No acute abnormalities displayed
[2020-12-04 09:42] VITALS: O2SAT 100
[2020-12-04 09:45] VITALS: BP 134/89; TEMP 97.1
--- NOTE | 2020-12-05 10:43 | EKG ---
Test Date: 2020-12-04 Test Time: 04:17:00 Licensing Specialist: CARLOS EDUARDO MEASUREMENT RESULTS: Intervals: Rate: 72 KS: 150 QRSD: 120 QT: 396 QTc: 433 [place]: P: 62 KS: 150 QRS: 76 T: 56 INTERPRETIVE STATEMENTS: Normal sinus rhythm Nonspecific intraventricular conduction delay Borderline ECG No previous ECG available for comparison Electronically Signed On 12-05-20 10:40:01 CDT by Jackson Hansen
--- NOTE | 2020-12-06 11:39 | RAD REPORT ---
EXAM DESCRIPTION: CT - Head Brain Wo Cont - 12/04/2020 6:36 am COMPARISON: None. CLINICAL HISTORY: [facility] MAIN DIZZINESS TECHNIQUE: Axial images were obtained from skull base to vertex without intravenous contrast. Imag es viewed on bone and brain windows. Multiplanar reformats were performed. Automated exposure contr ol was utilized on this examination as a dose lowering technique. FINDINGS: Brain parenchyma, ventricles, dura, meninges, and extra-axial spaces: Ventricles and sulci are normal. No abnormal attenuation of brain parenchyma is present. No acute intracranial hemor rhage or abnormal extra-axial fluid collections are present.Vascular structures: No hyperdense arteri es or veins.Calvarium, mastoid air cells, paranasal sinuses and orbits: The calvarium is normal. The mastoid air cells are clear. Visualized paranasal sinuses are unremarkable. Orbital structures are un remarkable. IMPRESSION: No acute intracranial abnormality. Electronically signed by: Rik Vicente MD 12/04/2020 4:32 AM CDT Due to temporary technical issues with the PACS/Fluency reporting system, reports are being signed by the in house radiologist without review as a courtesy to ensure prompt reporting. The interpreting r adiologist is fully responsible for the content of the report.
== END 2020-12-04 09:34 | disposition home or self-care (01) ==
LOC: ER 03:26
PROC: 30233N1 Transfusion of Nonautologous Red Blood Cells into Peripheral Vein, Percutaneous Approach (ICD-10-PCS; principal; 2020-12-04)
DX: N93.9 Abnormal uterine and vaginal bleeding, unspecified (principal); E87.6 Hypokalemia; N39.0 Urinary tract infection, site not specified; I10 Essential (primary) hypertension; F41.9 Anxiety disorder, unspecified
CPT/HCPCS: 96361; 93005; 87088; 85025; 87086; 80048; 36415; 86900; 83735; 86850; 81025; 85610; 86901; 80076; 87077; 87186; 84484; 83880; 70450; 71045; 96374; 99284; 36430; J0696; P9016; J7050; J7030; 81003; 81015

== ENCOUNTER 2021-04-24 17:37 | Emergency (ER) | payer OTHER ==
--- NOTE | 2021-04-24 18:40 | ER ---
Nurse's Notes [facility] Name: Joyce Mera Age: 35 yrs Sex: Female : 1985 Arrival Date: 04/24/2021 Time: 17:38 Bed Waiting Private MD: Guy Vizcarra Diagnosis: Dental pain Presentation: 04/24 17:54 Chief complaint: Patient states: Left bottom tooth pain that started last night and has ww progressively gotten worse throughout the day. Coronavirus screen: Vaccine status: Patient reports being unvaccinated. Client denies travel out of the [place] in the last 14 days. Ebola Screen: Patient negative for fever greater than or equal to 101.5 degrees Fahrenheit, and additional compatible Ebola Virus Disease symptoms Patient denies exposure to infectious person. Initial Sepsis Screen: Does the patient meet any 2 criteria? No. Patient's initial sepsis screen is negative. Does the patient have a suspected source of infection? No. Patient's initial sepsis screen is negative. Risk Assessment: Do you want to hurt yourself or someone else? Patient reports no desire to harm self or others. Onset of symptoms was April 23, 2021. 17:54 Method Of Arrival: Ambulatory ww 17:54 Acuity: ALICIA 4 ww Triage Assessment: 17:56 General: Appears uncomfortable, Behavior is calm, cooperative, appropriate for age. ww Pain: Complains of pain in lower left third molar, lower left second molar and lower left first molar. EENT: Reports pain in lower left third molar, lower left second molar and lower left first molar. Neuro: Level of Consciousness is awake, alert, obeys commands, Oriented to person, place, time, situation. Cardiovascular: No deficits noted. Denies chest pain, shortness of breath. Cardiovascular: Reports. Respiratory: No deficits noted. Airway is patent Respiratory effort is even, unlabored, Respiratory pattern is regular, symmetrical. GI: No deficits noted. No signs and/or symptoms were reported involving the gastrointestinal system. : No deficits noted. No signs and/or symptoms were reported regarding the genitourinary system. Derm: No deficits noted. No signs and/or symptoms reported regarding the dermatologic system. Skin is intact. Musculoskeletal: No deficits noted. 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 Flu vaccine is not up to date. - Social history:: Smoking status: Patient denies any tobacco usage or history of. Screenin:58 Abuse screen: Denies threats or abuse. Denies injuries from another. Nutritional ww screening: No deficits noted. Tuberculosis screening: No symptoms or risk factors identified. Fall Risk None identified. Vital Signs: 17:54 BP 148 / 106; Pulse 83; Resp 18; Temp 97.3; Pulse Ox 100% on R/A; Weight 88.45 kg; ww Height 5 ft. 4 in. (162.56 cm); Pain 10/10; 17:54 Body Mass Index 33.47 (88.45 kg, 162.56 cm) ww ED Course: 17:38 Patient arrived in ED. am2 17:38 Guy Vizcarra DO is Private Physician. am2 17:56 Triage completed. ww 17:56 Arm band placed on left wrist. ww 18:39 Armand Barton NP is PHCP. pm1 18:39 So Alicia MD is Attending Physician. pm1 18:45 Patient has correct armband on for positive identification. ww 18:45 No provider procedures requiring assistance completed. Patient did not have IV access ww during this emergency room visit. Administered Medications: No medications were administered Outcome: 18:40 Discharge ordered by . pm1 18:44 Discharged to home ambulatory, with family. ww 18:44 Condition: stable 18:44 Discharge instructions given to patient, Instructed on discharge instructions, follow up and referral plans. medication usage, safety practices, Demonstrated understanding of instructions, follow-up care, medications. 18:45 Patient left the ED. ww Signatures: Armand Barton NP WEIGHT COUNT OPERATOR pm1 Roselia Rowell am2 Marci Ochoa RN RN ww
--- NOTE | 2021-04-24 18:40 | EDPHYS ---
Physician Documentation [facility] Name: Joyce Mera Age: 35 yrs Sex: Female : 1985 Arrival Date: 04/24/2021 Time: 17:38 Bed Waiting Private MD: Zackery [facility] ED Physician So Alicia HPI: 04/24 18:42 This 35 yrs old Female presents to ER via Ambulatory with complaints of Toothache. pm1 18:42 The patient presents with pain. The problem is located in the lower left first molar. pm1 18:42 Onset: The symptoms/episode began/occurred last night. Duration: The symptoms are pm1 continuous. Modifying factors: The symptoms are alleviated by nothing, the symptoms are aggravated by chewing, food. Associated signs and symptoms: Pertinent negatives: inability to eat, swelling. Severity of symptoms: in the emergency department the symptoms are actually worse. The patient has experienced similar episodes in the past, ongoing dental issue for a long time. The patient has not recently seen a physician. 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 Flu vaccine is not up to date. - Social history:: Smoking status: Patient denies any tobacco usage or history of. ROS: 18:42 Constitutional: Negative for fever, chills, and weight loss. pm1 18:42 Neck: Negative for injury, pain, and swelling, Cardiovascular: Negative for chest pain, palpitations, and edema, Respiratory: Negative for shortness of breath, cough, wheezing, and pleuritic chest pain, Abdomen/GI: Negative for abdominal pain, nausea, vomiting, diarrhea, and constipation, Neuro: Negative for headache, weakness, numbness, tingling, and seizure. 18:42 ENT: Positive for dental pain, Negative for sore throat, difficulty swallowing, difficulty handling secretions, hoarseness. 18:42 All other systems are negative. Exam: 18:42 Constitutional: This is a well developed, well nourished patient who is awake, alert, pm1 and in no acute distress. Head/Face: Normocephalic, atraumatic. 18:42 Skin: Warm, dry with normal turgor. Normal color with no rashes, no lesions, and no evidence of cellulitis. MS/ Extremity: Pulses equal, no cyanosis. Neurovascular intact. Full, normal range of motion. 18:42 ENT: Dental exam: dental caries, that is moderate, specifically in the lower left first molar (#19), gum swelling, not appreciated, pain, specifically in the lower left first molar (#19). 18:42 Cardiovascular: Exam negative for acute changes, Rate: normal, Rhythm: regular, Pulses: no pulse deficits are appreciated. 18:42 Respiratory: Exam negative for acute changes, respiratory distress, shortness of breath. 18:42 Neuro: Exam negative for acute changes, Orientation: is normal, Mentation: is normal, Motor: is normal, Gait: is steady, at a normal pace, without difficulty. Vital Signs: 17:54 BP 148 / 106; Pulse 83; Resp 18; Temp 97.3; Pulse Ox 100% on R/A; Weight 88.45 kg; ww Height 5 ft. 4 in. (162.56 cm); Pain 10/10; 17:54 Body Mass Index 33.47 (88.45 kg, 162.56 cm) ww MDM: 18:39 Data reviewed: vital signs. Data interpreted: Pulse oximetry: on room air is 100 %. pm1 Interpretation: normal. Counseling: I had a detailed discussion with the patient and/or guardian regarding: the historical points, exam findings, and any diagnostic results supporting the discharge/admit diagnosis, the need for outpatient follow up, for definitive care, a dentist, to return to the emergency department if symptoms worsen or persist or if there are any questions or concerns that arise at home. 18:40 Patient medically screened. pm1 18:42 ED course: PMPaware reviewed. pm1 Administered Medications: No medications were administered Disposition Summary: 04/24/21 18:40 Discharge Ordered Location: Home pm1 Problem: new pm1 Symptoms: have improved pm1 Condition: Stable pm1 Diagnosis - Dental pain pm1 Followup: pm1 - With: Emergency Department - When: As needed - Reason: Worsening of condition Followup: pm1 - With: Private Physician - When: 2 - 3 days - Reason: Recheck today's complaints, Continuance of care, Re-evaluation by your physician Discharge Instructions: - Discharge Summary Sheet pm1 - Dental Pain pm1 Forms: - Medication Reconciliation Form pm1 - Thank You Letter pm1 - Antibiotic Education pm1 - Prescription Opioid Use pm1 Prescriptions: - Augmentin 875-125 mg Oral Tablet - take 1 tablet by ORAL route every 12 hours for 10 days; 20 tablet; Refills: 0, pm1 Product Selection Permitted - Tylenol-Codeine #3 300 mg-30 mg Oral - take 2 tablet by ORAL route every 6 hours As needed; 20 tablet; Refills: 0, pm1 Product Selection Permitted Signatures: Armand Barton NP TIMBER ROBBER pm1 Marci Ochoa RN RN ww
[2021-04-24 18:54] VITALS: BP 148/106; TEMP 97.3; O2SAT 100
== END 2021-04-24 18:45 | disposition home or self-care (01) ==
LOC: ER 17:37
DX: K08.89 Other specified disorders of teeth and supporting structures (principal); I10 Essential (primary) hypertension; F41.9 Anxiety disorder, unspecified
CPT/HCPCS: 99281

== ENCOUNTER 2021-07-11 00:03 | Emergency (ER) | payer OTHER ==
--- OUTSIDE RECORDS SUMMARY | 2021-07-11 00:08 | XMS REPORT | Continuity of Care Document ---
:1985 Author Organization [facility] Address [address] [place] [address] Care Team Providers Name Role Phone Luisa JOSEPH Primary Care Physician Unavailable Keith LOPEZ Attending Clinician Unavailable Jennifer GROUND TRANSPORTATION OPERATOR, B Attending Clinician Marycruz CAMPOS L Attending Clinician Yair JIMENES Attending Clinician Unavailable Fela PAC S Attending Clinician Amanda STONE Attending Clinician Unavailable Pat Owusu Attending Clinician Lucia KEITH, R Attending Clinician Payers Payer Name Policy Type Policy Number Effective Date Expiration Date [facility] [id number] 2020 [facility] MEDICAID 00:00:00 Problems Condition Condition Condition Status Onset Resolution Last Treating Co mments Source Name Details Category Date Date Treatment Clinician Date Coffee Coffee Disease Active [facility] ground ground 5-05 [facility] em[facility] emesis [facility]: Medical 00 Center Acute Acute Disease Active Overview: [facility] blood loss blood loss 5-05 Formattin [facility] - anemia anemia 00:00: g of this Medical 00 note Center might be different from the original. In anticipat ion for transfer to [facility] from [facility] on for acute blood loss anemia with [...] ic instabili ty. Already received 2units at [facility] in critical access hospital for transfer. Will need to perform serial CBCs q6hs and keep NPO with IV fluids. laith s Johanna etis, [id number] Gastroent erology and Hepatolog y [facility] No known No known Disease Unive rs active active ity of problems problems [facility] Allergies, Adverse Reactions, Alerts Allergy Allergy Status Severity Reaction(s) Onset Inactive Treating Comm ents Source Name Type Date Date Clinician NO KNOWN Drug Active Univers ALLERGIE Class ity of S [facility] Social History Social Habit Start Date Stop Date Quantity Comments Source Exposure to Not sure [facility] SARS-CoV-2 (event) Medica l Branch Sex Assigned At [birth year] [facility] [place] 00:00:00 00:00:00 [facility] Branch Smoking Status Start Date Stop Date Source Never smoker [facility] Medications Ordered Filled Start Stop Current Ordering Indication Dosage Frequency Signature Comments Components Source Medication Medication Date Date Medication? Clinician (SIG) Name Name ketorolac 2021- No 30mg 30 mg, Unive rs (TORADOL) 04-26 Intramuscu ity of injection 02:45: 01:46 lar, ONCE, [place] 30 mg 00 :00 1 dose, On Medical Mon Branch 04/25/21 at 2045, TANVIR gabapentin 2020-04- No 300mg 300 mg, Un earlene (NEURONTIN) 04-15 Oral, ONCE i ty of capsule 300 05:15: 04:15 NOW, 1 Jonathan as mg 00 :00 dose, On [facility] Tiffany Branch 04/14/21 at 2315, TANVIR amLODIPine 2020-04 Yes [id number] 2.5mg Take 1 Univers 2.5 mg 2-30 tablet by ity of tablet 00:00: mouth at [place] 00 bedtime. Medical Branch amLODIPine 2020-04 Yes [id number] 2.5mg Take 1 Univers 2.5 mg 2-30 tablet by ity of tablet 00:00: mouth at [place] 00 bedtime. Medical Branch gabapentin 2020-04- Yes [id number] 300mg Take 1 Univers 300 mg 2-30 -30 capsule by ity of capsule 00:00: 05:59 mouth 3 [place] 00 :00 (three) Medical times [place] daily for 30 days. gabapentin 2020-04- Yes [id number] 300mg Take 1 Univers 300 mg 2-30 -30 capsule by ity of capsule 00:00: 05:59 mouth 3 [place] 00 :00 (three) Medical [facility] daily for 30 days. naproxen 2020- No 500mg 500 mg, Univ ers (NAPROSYN) 05-09-24 Oral, ity of tablet 500 09:00: 07:59 ONCE, 1 [place] as mg 00 :00 dose, [place] [facility] 05/09/20 at Branch 0300, Routine NaCl 0.9% 2020- No 1000mL at 999 Uni vers (NS) bolus 05-0924 mL/hr, ity of infusion 08:00: 08:45 1,000 mL, Jonathan as 1,000 mL 00 :00 IV Medical Infusion, [place] ONCE, 1 dose, [place] 05/09/20 at 0200, STAT naproxen Yes [id number] 500mg Take 1 Univers (NAPROSYN) 1-24 100 tablet by ity of 500 mg 00:00: mouth 2 [place] tablet 00 (two) [facility] daily with meals. norgestimat Yes [id number] 1{tbl} Take 1 Univers e-ethinyl 1-24 100 tablet by ity o f estradioL 00:00: mouth [place] 0.25-35 00 daily. Medical mg-mcg per Branch tablet naproxen Yes [id number] 500mg Take 1 Univers (NAPROSYN) 1-24 100 tablet by ity of 500 mg 00:00: mouth 2 [place] tablet 00 (two) Medical times [place] daily with meals. norgestimat Yes [id number] 1{tbl} Take 1 Univers e-ethinyl 1-24 100 tablet by ity o f estradioL 00:00: mouth [place] 0.25-35 00 daily. Medical mg-mcg per Branch tablet naproxen Yes [id number] 500mg Take 1 Univers (NAPROSYN) 1-24 100 tablet by ity of 500 mg 00:00: mouth 2 [place] tablet 00 (two) [facility] daily with meals. norgestimat Yes [id number] 1{tbl} Take 1 Univers e-ethinyl 1-24 100 tablet by ity o f estradioL 00:00: mouth [place] 0.25-35 00 daily. Medical mg-mcg per Branch tablet hydrOXYzine 2019- No 25mg 25 mg, Uni vers (ATARAX) 10-01 Oral, ity of tablet 25 00:45: 23:43 ONCE, 1 [place] mg 00 :00 dose, [facility] Medical 10/01/19 at [place] 194, TANVIR famotidine 2019- No 40mg 40 mg, Univ ers (PEPCID AC) 10-01 Oral, ity of tablet 40 00:30: 23:43 ONCE, 1 [place] mg 00 :00 dose, [facility] 10/01/19 at Branch 193, TANVIR methylpredn 2019- No 125mg 125 mg, U nivers isolone sod 10-01 Intramuscu i ty of succ 00:30: 23:48 lar, ONCE, [place] (SOLU-MEDRO 00 :00 1 dose, Medic al L) [facility] injection 10/01/19 at 125 mg 1929, STAT benzonatate 2019-0 Yes [id number] 100mg Take 1 Univers 100 mg 6-17 capsule by ity of capsule 00:00: mouth 3 [place] 00 (three) [facility] daily as needed for Cough. hydrOXYzine 2019-0 Yes [id number] 50mg Take 1 Univers (VISTARIL) 6-17 capsule by ity of 50 mg 00:00: mouth 3 [place] capsule 00 (three) [facility] daily as needed for Itching. famotidine 2019-0 Yes [id number] 40mg Take 1 Univers (PEPCID) 40 6-17 tablet by ity of mg tablet 00:00: mouth [place] [address] [facility] benzonatate 2019-0 Yes [id number] 100mg Take 1 Univers 100 mg 6-17 capsule by ity of capsule 00:00: mouth 3 [place] 00 (three) Medical [facility] daily as needed for Cough. hydrOXYzine 2020-0 Yes [id number] 50mg Take 1 Univers (VISTARIL) 6-17 capsule by ity of 50 mg 00:00: mouth 3 [place] capsule 00 (three) Medical times Branch daily as needed for Itching. famotidine 2020-0 Yes [id number] 40mg Take 1 Univers (PEPCID) 40 6-17 tablet by ity of mg tablet 00:00: mouth [place] 00 daily. Medical Branch benzonatate 2020-0 Yes [id number] 100mg Take 1 Univers 100 mg 6-17 capsule by ity of capsule 00:00: mouth 3 [place] 00 (three) Medical times Branch daily as needed for Cough. hydrOXYzine 2020-0 Yes [id number] 50mg Take 1 Univers (VISTARIL) 6-17 capsule by ity of 50 mg 00:00: mouth 3 [place] capsule 00 (three) Medical times Branch daily as needed for Itching. famotidine 2020-0 Yes [id number] 40mg Take 1 Univers (PEPCID) 40 6-17 tablet by ity of mg tablet 00:00: mouth [place] 00 daily. Medical Branch benzonatate 2020-0 Yes [id number] 100mg Take 1 Univers 100 mg 6-17 capsule by ity of capsule 00:00: mouth 3 [place] 00 (three) Medical times Branch daily as needed for Cough. hydrOXYzine 2020-0 Yes [id number] 50mg Take 1 Univers (VISTARIL) 6-17 capsule by ity of 50 mg 00:00: mouth 3 [place] capsule 00 (three) Medical times Branch daily as needed for Itching. famotidine 2020-0 Yes [id number] 40mg Take 1 Univers (PEPCID) 40 6-17 tablet by ity of mg tablet 00:00: mouth [place] 00 daily. Medical Branch traMADOL 2017-0 Yes 50mg Take 1 Univers (ULTRAM) 50 4-15 tablet by ity of mg tablet 00:00: mouth [place] 00 every 6 Medical (six) Branch hours as needed for Pain (scale 7-10). traMADOL 2017-0 Yes 50mg Take 1 Univers (ULTRAM) 50 4-15 tablet by ity of mg tablet 00:00: mouth [place] 00 every 6 Medical (six) Branch hours as needed for Pain (scale 7-10). traMADOL 2017-0 Yes 50mg Take 1 Univers (ULTRAM) 50 4-15 tablet by ity of mg tablet 00:00: mouth [place] 00 every 6 Medical (six) Branch hours as needed for Pain (scale 7-10). traMADOL 2017-0 Yes 50mg Take 1 Univers (ULTRAM) 50 4-15 tablet by ity of mg tablet 00:00: mouth [place] 00 every 6 Medical (six) Branch hours as needed for Pain (scale 7-10). traMADOL 2017-0 Yes 50mg Take 1 Univers (ULTRAM) 50 4-15 tablet by ity of mg tablet 00:00: mouth [place] 00 every 6 Medical (six) Branch hours as needed for Pain (scale 7-10). Vital Signs Vital Name Observation Time Observation Value Comments Source Systolic blood 2021-04-26 00:45:00 148 [facility]Hg[facility] 2021-04-26 00:45:00 113 mm[Hg] [facility] 2021-04-26 00:45:00 92 /min [facility] Body temperature 2021-04-26 00:45:00 36.11 Jen [facility] Respiratory rate 2021-04-26 00:45:00 22 /min [facility] Body height 2021-04-26 00:45:00 162.6 cm [facility] Body weight 2021-04-26 00:45:00 90.719 kg [facility] BMI 2021-04-26 00:45:00 34.33 kg/m2 [facility] Oxygen saturation in 2021-04-26 00:45:00 100 /min [facility] Arterial blood by [facility] Pulse oximetry Branch Systolic blood 2021-04-15 04:01:00 149 mm[Hg] [facility] Di[facility] blood 2021-04-15 04:01:00 105 mm[Hg] [facility] 2021-04-15 04:01:00 89 /min [facility] Body temperature 2021-04-15 04:01:00 37.17 Jen [facility] Respiratory rate 2021-04-15 04:01:00 18 /min [facility] [place] [facility] Body height 2021-04-15 04:01:00 162.6 cm [facility] ty [facility] [place] [facility] Body weight 2021-04-15 04:01:00 90.719 kg [facility]i ty [facility] [place] [facility] BMI 2021-04-15 04:01:00 34.33 kg/m2 [facility] [place] [facility] Oxygen saturation in 2021-04-15 04:01:00 100 /min University of Arterial blood by [place] Medi ricardo Pulse oximetry Branch Systolic blood 2020-05-09 08:00:00 126 mm[Hg] Univer sity of pressure [place] [facility] Diastolic blood 2020-05-09 08:00:00 74 mm[Hg] Unive rsity of pressure [place] [facility] Heart rate 2020-05-09 08:00:00 78 /min [facility] [place] [facility] Respiratory rate 2020-05-09 08:00:00 18 /min [facility] [place] [facility] Oxygen saturation in 2020-05-09 08:00:00 99 /min University of Arterial blood by [place] Medi ricardo Pulse oximetry Branch Body temperature 2020-05-09 06:23:00 36.5 Jen [facility] [place] [facility] Body height 2020-05-09 06:16:00 162.6 cm [facility] [place] [facility] Body weight 2020-05-09 06:16:00 88.451 kg [facility] [place] [facility] BMI 2020-05-09 06:16:00 33.47 kg/m2 [facility] [place] [facility] Systolic blood 2020-05-09 08:00:00 126 mm[Hg] Univer sity of pressure [place] [facility] Diastolic blood 2020-05-09 08:00:00 74 mm[Hg] Unive rsity of pressure [place] [facility] Heart rate 2020-05-09 08:00:00 78 /min [facility]i ty [facility] [place] [facility] Respiratory rate 2020-05-09 08:00:00 18 /min Univ [facility] [place] [facility] Oxygen saturation in 2020-05-09 08:00:00 99 /min University of Arterial blood by [place] Medi ricardo Pulse oximetry Branch Body temperature 2020-05-09 06:23:00 36.5 Jen [facility] [place] [facility] Body height 2020-05-09 06:16:00 162.6 cm [facility] [place] [facility] Body weight 2020-05-09 06:16:00 88.451 kg [facility] [place] [facility] BMI 2020-05-09 06:16:00 33.47 kg/m2 [facility] [place] [facility] Systolic blood 2019-10-01 22:46:00 172 mm[Hg] Univer sity of pressure [place] [facility] Diastolic blood 2019-10-01 22:46:00 88 mm[Hg] Unive rsity of pressure [place] [facility] Heart rate 2019-10-01 22:46:00 100 /min [facility] [place] [facility] Body temperature 2019-10-01 22:46:00 36.67 Jen [facility] [place] [facility] Respiratory rate 2019-10-01 22:46:00 16 /min [facility] [place] [facility] Body height 2019-10-01 22:46:00 160 cm [facility] [place] [facility] Body weight 2019-10-01 22:46:00 88.451 kg [facility] [place] [facility] BMI 2019-10-01 22:46:00 34.54 kg/m2 [facility] [place] [facility] Oxygen saturation in 2019-10-01 22:46:00 100 /min University of Arterial blood by [facility] Pulse oximetry Branch Systolic blood 2019-10-01 22:46:00 172 mm[Hg] Univer sity of pressure [place] [facility] Diastolic blood 2019-10-01 22:46:00 88 mm[Hg] Unive rsity of pressure [place] [facility] Heart rate 2019-10-01 22:46:00 100 /min [facility] [place] [facility] Body temperature 2019-10-01 22:46:00 36.67 Jen [facility] [place] [facility] Respiratory rate 2019-10-01 22:46:00 16 /min [facility] [place] [facility] Body height 2019-10-01 22:46:00 160 cm [facility] [place] [facility] Body weight 2019-10-01 22:46:00 88.451 kg [facility] [place] [facility] BMI 2019-10-01 22:46:00 34.54 kg/m2 [facility] [place] [facility] Oxygen saturation in 2019-10-01 22:46:00 100 /min University of Arterial blood by [facility] [place] [facility] ricardo Pulse oximetry Branch Diastolic blood 2018-12-30 19:59:00 107 mm[Hg] Unive rsity of pressure [facility] Branch Heart rate 2018-12-30 19:59:00 85 /min Universi ty of [facility] Branch Body temperature 2018-12-30 19:59:00 37 Jen Univ ersity of [facility] Branch Respiratory rate 2018-12-30 19:59:00 16 /min Univ ersity of [facility] Branch Body weight 2018-12-30 19:59:00 86.183 kg Universi ty of [facility] Branch BMI 2018-12-30 19:59:00 32.61 kg/m2 Universi ty of [facility] Branch Oxygen saturation in 2018-12-30 19:59:00 100 /min University of Arterial blood by [facility] Pulse oximetry Branch Systolic blood 2018-12-30 19:59:00 165 mm[Hg] Univer sity of pressure [facility] Branch Diastolic blood 2018-12-30 19:59:00 107 mm[Hg] Unive rsity of pressure [facility] Branch Heart rate 2018-12-30 19:59:00 85 /min Universi ty of [facility] Branch Body temperature 2018-12-30 19:59:00 37 Jen Univ ersity of [facility] Branch Respiratory rate 2018-12-30 19:59:00 16 /min Univ ersity of [facility] Branch Body weight 2018-12-30 19:59:00 86.183 kg Universi ty of [facility] Branch BMI 2018-12-30 19:59:00 32.61 kg/m2 Universi ty of [facility] Branch Oxygen saturation in 2018-12-30 19:59:00 100 /min University of Arterial blood by [facility] Pulse oximetry Branch Systolic blood 2018-12-30 19:59:00 165 mm[Hg] Univer sity of [facility] Procedures Procedure Date / Time Performed Performing Clinician Sourc e [place] INJECTION AA&/STRD 2021-04-26 02:11:49 [facility] [place] TRIGEMINAL NERVE EACH Medical Br anch BRANCH POCT TEST 2021-04-26 01:11:[address] [facility] NOTICE OF PRIVACY 2021-04-26 00:35:44 Doctor Unassigned, No [facility] Name Medical Branch CONSENT/REFUSAL FOR 2021-04-26 00:35:26 Doctor Unassigned, No Un iversity of [place] DIAGNOSIS AND Name Medical Branch TREATMENT POCT TEST 2021-04-15 04:16:00 Sarah Jimenes [facility] NOTICE OF PRIVACY 2021-04-15 03:49:11 Doctor [facility]assigned, No [facility] CONSENT/REFUSAL FOR 2021-04-15 03:42:10 Doctor Unassigned, No Un iversity of [place] DIAGNOSIS AND Name Medical Branch TREATMENT TEST, SERUM 2020-05-09 06:50:00 Faby Stone [facility] HB ABO GROUPING 2020-05-09 06:50:00 Fela [facility] BASIC METABOLIC PANEL 2020-05-09 06:39:00 Faby Stone [facility] (NA, K, CL, CO2, Medical Branch GLUCOSE, BUN, CREATININE, CA) CBC WITH DIFF 2020-05-09 06:39:00 Faby Stone [facility] URINALYSIS 2020-05-09 06:39:00 Faby Stone [facility] POCT TEST 2020-05-09 06:31:00 Faby Stone [facility] NOTICE OF PRIVACY 2020-05-09 06:12:27 Doctor Unassigned, No [facility] CONSENT/REFUSAL FOR 2020-05-09 06:09:51 Doctor Unassigned, No Un [facility]ity of [place] DIAGNOSIS AND Name Medical Branch TREATMENT CONSENT/REFUSAL FOR 2020-05-09 06:09:50 Doctor Unassigned, No Un [facility] [place] DIAGNOSIS AND Name Medical Branch TREATMENT CONSENT/REFUSAL FOR 2020-05-09 06:09:49 Doctor Unassigned, No Un [facility] [place] DIAGNOSIS AND Name Medical Branch TREATMENT CONSENT/REFUSAL FOR 2020-05-09 06:09:48 Doctor Unassigned, No Un [facility]ity of [place] DIAGNOSIS AND Name Medical Branch TREATMENT CONSENT/REFUSAL FOR 2020-05-09 06:09:47 Doctor Unassigned, No Un [facility]ity of [place] DIAGNOSIS AND Name Medical Branch TREATMENT CONSENT/REFUSAL FOR 2020-05-09 06:09:45 Doctor Unassigned, No Un [facility]ity of [place] DIAGNOSIS AND Name Medical Branch TREATMENT CONSENT/REFUSAL FOR 2020-05-09 06:09:44 Doctor Unassigned, No Un [facility]ity [facility] [place] DIAGNOSIS AND Name Medical Branch TREATMENT COVID-19 (ID NOW RAPID 2019-10-01 23:52:00 [facility] Medical Branch CONSENT/REFUSAL FOR 2019-10-01 22:35:59 Doctor Unassigned, No Un [facility] [place] DIAGNOSIS AND Name Medical Branch TREATMENT URINALYSIS 2018-12-30 21:08:00 Myrna Myers [place] [facility] POCT TEST 2018-12-30 21:08:00 Myrna Myers [facility] ty [facility] NOTICE OF PRIVACY 2018-12-30 19:33:39 Doctor Unassigned, No [facility] Name Medical Branch Encounters Start End Encounter Admission Attending Care Care Encounter Source Date/Time Date/Time Type Type Clinicians Facility Department ID 2021-04-25 2021-04-25 [facility] [id number] Univers 18:47:00 20:45:00 CHRIS itarian [facility] 2021-04-25 2021-04-25 [facility] [id number] Univers 18:47:00 20:45:00 Chris CALIX [id number] i ty of [place] 4.2.7.2.686 [facility] [id number] [address] 2021-04-14 2021-04-14 [facility] [id number] Univers 22:04:00 23:00:00 Sarah CALIX [id number] ity of [place] 4.2.7.2.686 [facility] [id number] [address] 2021-04-14 2021-04-14 Emergency [facility] [id number] Univers 22:04:00 23:00:00 SARAH pereira [facility] 2020-05-09 2020-05-09 [facility] [id number] Univers 00:11:00 03:03:00 Faby S [place] [id number] i ty of [place] 4.2.7.2.686 [facility] [id number] [address] 2020-05-09 2020-05-09 Emergency [facility] [id number] 00:11:00 03:03:00 Faby S [place] [id number] [place] [address] [place] [address] [id number] [facility] 2020-05-09 2020-05-09 Emergency X [facility] ERT [id number] Univers 00:11:00 00:11:00 [facility] 2019-10-01 2019-10-01 Emergency Braydon Lee [facility] [id number] Univers 17:49:15 20:06:00 Pat [place] [id number] i ty of [place] [address]7.[address] [place] [id number] 2019-10-01 2019-10-01 Emergency Jesus [facility] [id number] 17:49:15 20:06:00 Pat [place] [id number] [place] [address] [place] [address] [id number] [facility] 2019-10-01 2019-10-01 Emergency X [facility] ERT [id number] Univers 17:36:00 17:36:00 ity [facility] 2018-12-30 2018-12-30 Emergency [facility] [id number] Univers 14:58:03 17:46:00 Myrna R [place] [id number] i ty of [place] [address]7.[address] [place] [id number] 2018-12-30 2018-12-30 Emergency [facility] [id number] 14:58:03 17:46:00 Myrna R [place] [id number] [place] [address] [place] [address] [id number] Results Test Description Test Time Test Comments Results Result Comments Source POCT TEST 2021-04-26 01:11:00 Test Item Value Reference Range Interpretation Comme nts POCT PREG (test code = 1605) negative On board controls acceptable with C Line (test code = 3574) present POCT PREG LOT # (test code = 3575) [id number] POCT PREG TEST DATE (test code = 3576) 06/13/2022 Lab Interpretation (test code = 70519-0) Normal [facility] [id number] 04:16:00 Test Item Value Reference Range Interpretation Comments POCT PREG (test code = 1605) neg On board controls acceptable with yes C Line (test code = 3574) POCT PREG LOT # (test code = 3575) [id number] POCT PREG TEST DATE (test 06/13/2022 code = 3576) Lab Interpretation (test code = Normal 20392-5) [facility], [id number] 07:35:00 Test Item Value Reference Range Interpretation Comments PREG SERUM (test code Negative = 7487728459) AL (test code = AL) Less than 10 IU/L. ?If low titer or ectopic is suspected, resubmit specimen in 48-[address] and Screen - ONCE [id number] 07:34:36 Test Item Value Reference Range Interpretation Comments ABO & RH (test code O Positive Performe d at PAMB = 20) Laboratory Serv [facility] Blood [facility]1 [address] [place] [phone] Free: [phone] A No. [id number] IAT (test code = Negative Performed a t [place] 1185) Laboratory Serv [facility] [address] [place] [phone] Free: [phone] A No. [id number] [facility]2021-01-24 07:28:00 Test Item Value Reference Range Interpretation Comments APPEARANCE (test code = Clear Clear [id number]) COLOR (test code = Red Yellow A 5535628155) PH (test code = 4.8-8.0 5944642038) SP GRAVITY (test code = 1.003-1.030 L 6617620033) GLU U QUAL (test code = Normal Normal 0041023881) BLOOD (test code = 3+ Negative A 3150631829) KETONES (test code = Negative Negative 6922240992) PROTEIN (test code = 30 mg/dL Negative A 2887-8) UROBILIN (test code = Normal Normal 0717497591) BILIRUBIN (test code = Negative Negative 0369768082) NITRITE (test code = Negative Negative 2225210828) LEUK RANJANA (test code = 25/uL Negative A 8350278423) RBC/HPF (test code = See_Comment H [Autom ated message] 8516384283) The system [employer] generated this result transmitted ref erence range: 0 - 3 HP F. The reference range was not used to int erpret this result as normal/abnormal . WBC/HPF (test code = See_Comment H [Autom ated message] 4510251065) The system [employer] generated this result transmitted ref erence range: 0 - 5 HP F. The reference range was not used to int erpret this result as normal/abnormal . BACTERIA (test code = Few Negative A 6564939087) SQ EPITH (test code = <1 HPF 7790807709) Lab Interpretation (test Abnormal code = 33209-8) [facility] [facility] (NA, K, CL, CO2, GLUCOSE, BUN, CREATININE, CA)2020-05-09 07:11:00 Test Item Value Reference Range Interpretation Comments NA (test code = 138 mmol/L 135-145 2599204221) K (test code = 3.7 mmol/L 3.5-5 8809865663) CL (test code = 105 mmol/L 98-108 7184631363) CO2 TOTAL (test code = 23 mmol/L 23-31 3295508245) AGAP (test code = 2-16 3628702300) BUN (test code = 14 mg/dL 7-23 1943186712) GLUCOSE (test code = 101 mg/dL 70-110 1940465896) CREATININE (test code 0.61 mg/dL 0.5-1.04 = 2763396921) CALCIUM (test code = 9.2 mg/dL 8.6-10.6 6788677317) eGFR Calculation mL/min/1.73m2 (Non-) (test code = 1149309897) eGFR Calculation mL/min/1.73m2 () (test code = 3197942574) AL (test code = AL) Association of Glomerular Filtration Rate (GFR) and Staging of Kidney Disease* + -+ + ---+| GFR (mL/min/1.73 m2) ?| With Kidney Damage ?| ?Without Kidney Damage+ -------+ ------+ ---------+| ?>90 ?| ?Stage one ?| ? Normal ?+ --+ -+ ----+| ?60-89 ?| ?Stage two ?| ? Decreased GFR ? + -+ + ---+| ?30-59 ?| ?Stage three ?| ? Stage three ? + -+ + ---+| ?15-29 ?| ?Stage four ? | ? Stage four ?+ --+ -+ ----+| ?<15 (or dialysis) ? ?| ?Stage five ? | ? Stage five ?+ --+ -+ ----+ *Each stage assumes the associated GFR level has been in effect for at least three months. ?Stages 1 to 5, with or without kidney disease, indicate chronic kidney disease. Notes: Determination of stages one and two (with eGFR >59mL/min/1.73 m2) requires estimation of kidney damage for at least three months as defined by structural or functional abnormalities of the kidney, manifested by either:Pathological abnormalities or Markers of kidney damage (including abnormalities in the composition of the blood or urine or abnormalities in imaging tests). [facility] WITH [id number] 06:47:00 Test Item Value Reference Range Interpretation Comments WBC (test code = See_Comment [Automated 1788-2) message] The sy stem which generated this result transmitted reference range : 4.30 - 11.10 10*3/?L. The reference range was not used to interpret this result as normal/abnormal . RBC (test code = See_Comment L [Automated 419-8) message] The sy stem which generated this result transmitted reference range : 3.93 - 5.25 10*6/?L. The reference range was not used to interpret this result as normal/abnormal . HGB (test code = 8.5 g/dL 11.6-15 L 718-7) HCT (test code = 29.1 % 35.7-45.2 L 4544-3) MCV (test code = 79.7 fL 80.6-95.5 L 787-2) MCH (test code = 23.3 pg 25.9-32.8 L 785-6) MCHC (test code = 29.2 g/dL 31.6-35.1 L 786-4) RDW-SD (test code = 46.9 fL 39-49.9 19102-5) RDW-CV (test code = 16.3 % 12-15.5 H 788-0) PLT (test code = See_Comment [Automated 777-3) message] The sy stem which generated this result transmitted reference range : 166 - 358 10*3/ ?L. The reference r duane was not used to interpret this result as normal/abnormal . MPV (test code = 10.7 fL 9.5-12.9 82040-5) NRBC/100 WBC (test See_Comment [Automat ed code = 5948610640) message] The system which generated this result transmitted reference range : 0.0 - 10.0 /100 WBCs. The refer ence range was not u sed to interpret th is result as normal/abnormal . NRBC x10^3 (test code <0.01 See_Comment [Auto mated = 9410108252) message] The s ystem which generated this result transmitted reference range : 10*3/?L. The reference range was not used to interpret this result as normal/abnormal . GRAN MAT (NEUT) % 56.2 % (test code = 770-8) IMM GRAN % (test code 0.00 % = 6419613655) LYMPH % (test code = 33.9 % 736-9) MONO % (test code = 6.9 % 5905-5) EOS % (test code = 2.4 % 713-8) BASO % (test code = 0.6 % 706-2) GRAN MAT x10^3(ANC) 2.62 10*3/uL 1.88-7.09 (test code = 1870812056) IMM GRAN x10^3 (test <0.03 0-0.06 code = 5855543755) LYMPH x10^3 (test code 1.58 10*3/uL 1.32-3.29 = 731-0) MONO x10^3 (test code 0.32 10*3/uL 0.33-0.92 L = 742-7) EOS x10^3 (test code = 0.11 10*3/uL 0.03-0.39 711-2) BASO x10^3 (test code 0.03 10*3/uL 0.01-0.07 = 704-7) Lab Interpretation Abnormal (test code = 66072-6) [facility] [id number] 06:31:00 Test Item Value Reference Range Interpretation Comments POCT PREG (test code = 1605) negative On board controls acceptable with positive C Line (test code = 3574) POCT PREG LOT # (test code = 3575) [id number] POCT PREG TEST DATE (test 02/12/2021 code = 3576) Lab Interpretation (test code = Normal 26898-9) [facility] (ID NOW RAPID TESTING)2019-10-02 00:40:00 Test Item Value Reference Range Interpretation Comments SARS-CoV-2 Rapid ID NOW Positive Not Detected A (test code = 17143-3) AL (test code = AL) ID NOW COVID-19 Assay is an isothermal nucleic acid amplification test intended for the qualitative detection of nucleic acid from SARS-CoV-2 viral RNA in nasopharyngeal ([employer]IST) specimens. It is used under Emergency Use Authorization (EUA) by FDA. The limit of detection (LOD) of the assay is 125 Genome Equivalents/mL. A positive result is indicative of the presence of SARS-CoV-2 RNA. ?Clinical correlation with patient history and other diagnostic [...] for repeat patient testing if clinically indicated. Lab Interpretation Abnormal (test code = 16601-2) [facility]2019-09-16 22:04:00 Test Item Value Reference Range Interpretation Comments APPEARANCE (test code = Clear Clear 8587624642) COLOR (test code = Straw Yellow A 2303347575) PH (test code = 4.8-8.0 1042926921) SP GRAVITY (test code = 1.003-1.030 4545649852) GLU U QUAL (test code = Normal Normal 9918141916) BLOOD (test code = Negative Negative 6395337370) KETONES (test code = Negative Negative 7041427059) PROTEIN (test code = Negative Negative 2887-8) UROBILIN (test code = Normal Normal 5951852551) BILIRUBIN (test code = Negative Negative 4577510679) NITRITE (test code = Negative Negative 9165089695) LEUK RANJANA (test code = 25/uL Negative A 3233774232) RBC/HPF (test code = See_Comment [Autom ated message] 6535127698) The system [employer] generated this result transmitted ref erence range: 0 - 3 HP F. The reference range was not used to int erpret this result as normal/abnormal . WBC/HPF (test code = See_Comment [Autom ated message] 2792589808) The system [employer] generated this result transmitted ref erence range: 0 - 5 HP F. The reference range was not used to int erpret this result as normal/abnormal . BACTERIA (test code = Negative Negative 6253726270) SQ EPITH (test code = HPF 3171835437) Lab Interpretation (test Abnormal code = 09718-2) [facility] [id number] 21:08:00 Test Item Value Reference Range Interpretation Comments POCT PREG (test code = 1605) negative On board controls acceptable with present C Line (test code = 3574) POCT PREG LOT # (test code = 3575) [id number] POCT PREG TEST DATE (test 04-15-2020 code = 3576) Lab Interpretation (test code = Normal 05853-7) [facility]"
[2021-07-11 01:42] LABS: SARS-COV-2 RT PCR NEGATIVE (NEGATIVE)
--- NOTE | 2021-07-11 02:37 | ER ---
Nurse's Notes [facility] Name: Joyce Mera Age: 35 yrs Sex: Female : 1985 Arrival Date: 07/11/2021 Time: 00:06 Bed 16 Private MD: Diagnosis: Acute nasopharyngitis [common cold] Presentation: 07/11 00:27 Chief complaint: Patient states: i started to have the sniffles yesterday and this kd3 morning I woke up and my voice was almost gone. Coronavirus screen: Vaccine status: Patient reports being unvaccinated. Ebola Screen: No symptoms or risks identified at this time. Initial Sepsis Screen: Does the patient meet any 2 criteria? No. Patient's initial sepsis screen is negative. Does the patient have a suspected source of infection? No. Patient's initial sepsis screen is negative. Risk Assessment: Do you want to hurt yourself or someone else? Patient reports no desire to harm self or others. Onset of symptoms was July 11, 2021. 00:27 Method Of Arrival: Ambulatory kd3 00:27 Acuity: ALICIA 3 kd3 Triage Assessment: 00:29 General: Appears in no apparent distress. Behavior is calm, cooperative, appropriate kd3 for age. Pain: Denies pain. EENT: Reports nasal congestion. 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 - Social history:: Smoking status: unknown. Screenin:31 Abuse screen: Denies threats or abuse. Denies injuries from another. Nutritional kd3 screening: No deficits noted. Tuberculosis screening: No symptoms or risk factors identified. Fall Risk None identified. Assessment: 01:21 Reassessment: No changes from previously documented assessment. rosaura 01:23 Respiratory: No deficits noted. rosaura 01:23 Respiratory: Airway is patent. rosaura 01:23 Respiratory: Breath sounds are clear. rosaura 01:24 Respiratory: Respiratory effort is even, unlabored. rosaura 01:49 Reassessment: Awaiting dispo. rosaura 03:21 EENT: Throat is reddened. rosaura Vital Signs: 01:24 BP 160 / 102; Pulse 88; Resp 18; Temp 98.5; Pulse Ox 100% on R/A; Pain 0/10; rosaura 03:20 BP 158 / 102; Pulse 82; Resp 16; Temp 98.5; Pulse Ox 100% on R/A; Pain 0/10; rosaura ED Course: 00:06 Patient arrived in ED. ja2 00:14 Shreyas Schmitt PA is PHCP. cp 00:14 Tima Solano MD is Attending Physician. cp 00:29 Triage completed. kd3 00:30 Arm band placed on right wrist. kd3 00:31 Patient has correct armband on for positive identification. Call light in reach. kd3 01:21 Kamilah Raza, RN is Primary Nurse. rosaura 01:22 Strep Sent. rosaura 01:22 COVID-19/FLU A+B (Document "Date of Onset" if Symptomatic) Sent. rosaura 01:23 No provider procedures requiring assistance completed. rosaura 02:17 Throat Culture Sent. rosaura 03:21 Patient did not have IV access during this emergency room visit. rosaura Administered Medications: No medications were administered Outcome: 01:24 Condition: stable rosaura 02:36 Discharge ordered by MD. cp 03:21 Discharged to home ambulatory. rosaura 03:21 Discharge instructions given to patient, Instructed on discharge instructions, follow up and referral plans. medication usage, Demonstrated understanding of instructions, follow-up care, medications, Prescriptions given X 1. 03:21 Patient left the ED. rosaura Signatures: Shreyas Schmitt PA PA cp Alexander, Jessica ja2 Charlotte Dotson RN RN kd3 Kamilah Raza, REJI RN rosaura
--- NOTE | 2021-07-11 02:37 | EDPHYS ---
Physician Documentation [facility] Name: Joyce Mera Age: 35 yrs Sex: Female : 1985 Arrival Date: 07/11/2021 Time: 00:06 Bed 16 Private MD: ED Physician Tima Solano HPI: 07/11 01:00 This 35 yrs old Female presents to ER via Ambulatory with complaints of Sore Throat. cp 01:00 The patient presents with sore throat. The patient describes throat pain as scratchy. cp Onset: The symptoms/episode began/occurred yesterday, and became worse today. Associated signs and symptoms: Pertinent positives: cough, loss of voice, Pertinent negatives chills, diarrhea, fever, flu-like symptoms, headache, shortness of breath, vomiting. 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 - Social history:: Smoking status: unknown. ROS: 01:05 Constitutional: Negative for body aches, chills, fever, poor PO intake. cp 01:05 Eyes: Negative for injury, pain, redness, and discharge. cp 01:05 ENT: Positive for sore throat, loss of voice, Negative for drainage from ear(s), ear pain, difficulty swallowing, difficulty handling secretions. 01:05 Cardiovascular: Negative for chest pain, palpitations. 01:05 Respiratory: Negative for cough, shortness of breath, wheezing. 01:05 Abdomen/GI: Negative for abdominal pain, nausea, vomiting, and diarrhea. 01:05 Back: Negative for pain at rest, pain with movement. 01:05 Skin: Negative for rash. 01:05 Neuro: Negative for altered mental status, headache, weakness. 01:05 All other systems are negative. Exam: 01:10 Constitutional: The patient appears in no acute distress, alert, awake, comfortable, cp non-toxic, well developed, well nourished. 01:10 Head/Face: Normocephalic, atraumatic. cp 01:10 Eyes: Periorbital structures: appear normal, Conjunctiva: normal, no exudate, no injection, Sclera: no appreciated abnormality, Lids and lashes: appear normal, bilaterally. 01:10 ENT: External ear(s): are unremarkable, Nose: is normal, Mouth: Lips: moist, Oral mucosa: pink and intact, moist, Posterior pharynx: Airway: no evidence of obstruction, patent, Tonsils: no enlargement, no exudate, swelling, is not appreciated, erythema, that is mild, exudate, is not appreciated. 01:10 Neck: ROM/movement: is normal, is supple, without pain, no range of motions limitations, no meningismus, Lymph nodes: no appreciated lymphadenopathy. 01:10 Chest/axilla: Inspection: normal. 01:10 Cardiovascular: Rate: normal, Rhythm: regular. 01:10 Respiratory: the patient does not display signs of respiratory distress, Respirations: normal, no use of accessory muscles, no retractions, labored breathing, is not present, Breath sounds: are clear throughout, no decreased breath sounds, no stridor, no wheezing. 01:10 Abdomen/GI: Exam negative for discomfort, distension, guarding, Inspection: abdomen appears normal. 01:10 Skin: no rash present. Vital Signs: 01:24 BP 160 / 102; Pulse 88; Resp 18; Temp 98.5; Pulse Ox 100% on R/A; Pain 0/10; rosaura 03:20 BP 158 / 102; Pulse 82; Resp 16; Temp 98.5; Pulse Ox 100% on R/A; Pain 0/10; rosaura MDM: 00:16 Patient medically screened. cp 01:40 Differential diagnosis: apthous stomatitis, apthous ulcer, epiglottitis, [place] cp virus, group A strep tonsillitis, influenza, peritonsillar abscess pharyngitis, retropharyngeal abcess. 02:36 Data reviewed: vital signs, nurses notes, lab test result(s). cp 02:36 Counseling: I had a detailed discussion with the patient and/or guardian regarding: the cp historical points, exam findings, and any diagnostic results supporting the discharge/admit diagnosis, lab results, to return to the emergency department if symptoms worsen or persist or if there are any questions or concerns that arise at home. Special discussion: I discussed with the patient/guardian that the patient's current presentation does not indicate dosing of antibiotics. They should follow-up with their primary care provider and return if the symptoms persist or progress. 07/11 00:40 Order name: Strep; Complete Time: 02:35 cp 07/11 00:40 Order name: COVID-19/FLU A+B (Document "Date of Onset" if Symptomatic); Complete Time: cp 02:35 07/11 01:32 Order name: Throat Culture EDMS Administered Medications: No medications were administered Disposition Summary: 07/11/21 02:36 Discharge Ordered Location: Home cp Problem: new cp Symptoms: have improved cp Condition: Stable cp Diagnosis - Acute nasopharyngitis [common cold] cp Followup: cp - With: Private Physician - When: 2 - 3 days - Reason: Worsening of condition Discharge Instructions: - Discharge Summary Sheet cp - Pharyngitis cp - Sore Throat cp - Cool Mist Vaporizer cp - Cough, Adult cp Forms: - Medication Reconciliation Form cp - Thank You Letter cp - Antibiotic Education cp - Prescription Opioid Use cp - Work release form mw2 Prescriptions: - Tessalon Perles 100 mg Oral Capsule - take 1 capsule by ORAL route every 8 hours As needed; 15 capsule; Refills: 0, cp Product Selection Permitted Addendum: 07/16/2021 01:00 Co-signature as Attending Physician, Tima Solano MD. [facility] Signatures: Dispatcher [employer] EDShreyas Davila PA PA cp Tima Solano MD MD mh7 Charlotte Dotson RN RN kd3
[2021-07-11 03:28] VITALS: TEMP 98.5; O2SAT 100
[2021-07-11 03:30] VITALS: BP 158/102
== END 2021-07-11 03:21 | disposition home or self-care (01) ==
LOC: ER 00:03
DX: J00 Acute nasopharyngitis [common cold] (principal); Z20.822 Contact with and (suspected) exposure to COVID-19; I10 Essential (primary) hypertension; F41.9 Anxiety disorder, unspecified
CPT/HCPCS: 87070; 87081; 0240U; 99283

== ENCOUNTER 2021-12-02 16:28 | Emergency (ER) | payer OTHER ==
--- OUTSIDE RECORDS SUMMARY | 2021-12-02 16:32 | XMS REPORT | Continuity of Care Document ---
:1985 Author Organization [facility] t Address [address] [place] [address] Care Team Providers Name Role Phone Guy Vizcarra Primary Care Physician JARED GALLEGOS Attending Clinician Unavailable Jared Gallegos MD Attending Clinician OFELIA ESPINO Attending Clinician Unavailable Ofelia Espino DO Attending Clinician CHRIS RODRIGUEZ Attending Clinician Unavailable Chris Engle Attending Clinician Sarah Joel APN Attending Clinician SARAH JOEL Attending Clinician Unavailable Faby Fajardo Attending Clinician FABY STONE Attending Clinician Unavailable Braydon Owusu Attending Clinician Myrna Dutton Attending Clinician Payers Payer Name Policy Type Policy Number Effective Date Expiration Date [facility] [id number] 2020 CHOICE MEDICAID 00:00:00 Problems Condition Condition Condition Status Onset Resolution Last Treating Co mments Source Name Details Category Date Date Treatment Clinician Date Coffee Coffee Disease Active [facility] ground ground 5-05 [place] emesis emesis 00:00: Medical 00 Center Acute Acute Disease Active Overview: [facility] blood loss blood loss 5-05 Formattin [place] anemia anemia 00:00: g of this Medical 00 note Center might be different from the original. In [facility] for transfer to [facility] from [facility] to [place] on for acute blood loss anemia with [...] ic instabili ty. Already received 2units at [facility] in [facility] for transfer. Will need to perform serial CBCs q6hs and keep NPO with IV fluids.Aung Spencer etis, [id number] Gastroent erology and Hepatolog y [facility] No known No known Disease Unive rs active active ity of problems problems [facility] [place] Allergies, Adverse Reactions, Alerts Allergy Allergy Status Severity Reaction(s) Onset Inactive Treating Comm ents Source Name Type Date Date Clinician NO KNOWN Drug Active Univers ALLERGIE Class ity of S [facility] [place] Social History Social Habit Start Date Stop Date Quantity Comments Source Exposure to 2021-10-18 2021-10-28 Not sure [facility] SARS-CoV-2 (event) 00:00:00 01:25:00 Medica l Branch Sex Ass[birth year] At [birth year] [facility] 00:00:00 00:00:00 [facility] Branch Smoking Status Start Date Stop Date Source Never smoked tobacco [facility] Medications Ordered Filled Start Stop Current Ordering Indication Dosage Frequency Signature Comments Components Source Medication Medication Date Date Medication? Clinician (SIG) Name Name gabapentin 2021- No 600mg 600 mg, Un earlene (NEURONTIN) 10-28 07-15 Oral, ity of capsule 600 07:00: 06:56 [place]CE[place] 1 [place] 00 :[place] dose, On Medical Fri Branch 10/28/21 at 0200, TANVIR gabapentin Yes [id number] 600mg Take 1 Univers 600 mg 7-15 07 tablet by ity of tablet 00:00: mouth in [place] 00 the Medical morning Branch and 1 tablet in the evening. methylPREDN Yes [id number] Take by Univers ISolone 4-27 mouth ity of (MEDROL, 00:00: SEE-INSTRU Jonathan as TREASURE,) 4 mg 00 CTIONS. Medica l tablets follow Branch package directions methylPREDN Yes [id number] Take by Univers ISolone 4-27 mouth ity of (MEDROL, 00:00: SEE-INSTRU Jonathan as TREASURE,) 4 mg 00 CTIONS. Medica l tablets follow Branch package directions gabapentin 2021- No [id number] 300mg Take 1 Univers 300 mg 08-10 05-08 capsule by ity of capsule 00:00: 04:59 mouth 3 [place] 00 :00 (three) Medical times Branch daily for 10 days. methocarbam 2021- No [id number] 500mg Take 1 Univers oL 500 mg 08-10-03 tablet by ity of tablet 00:00: 04:59 mouth 3 [place] 00 :00 (three) Medical times Branch daily for 5 days. ketorolac 2021- No 30mg 30 mg, Unive rs (TORADOL) 04-26 Intramuscu ity of injection 02:45: 01:46 lar, ONCE, [place] 30 mg 00 :00 1 dose, On Medical Mon Branch 04/25/21 at 2045, TANVIR gabapentin 2020-04- No 300mg 300 mg, Un earlene (NEURONTIN) 04-15 Oral, ONCE i ty of capsule 300 05:15: 04:15 NOW, 1 [place] mg 00 :00 dose, On Medical Tiffany Branch 04/14/21 at 2315, TANVIR amLODIPine 2020-04 Yes [id number] 2.5mg Take 1 Univers 2.5 mg 2-30 tablet by ity of tablet 00:00: mouth at [place] 00 bedtime. Medical Branch amLODIPine 2020-04 Yes [id number] 2.5mg Take 1 Univers 2.5 mg 2-30 tablet by ity of tablet 00:00: mouth at [place] 00 bedtime. Medical Branch amLODIPine 2020-04 Yes [id number] 2.5mg Take 1 Univers 2.5 mg 2-30 tablet by ity of tablet 00:00: mouth at [place] 00 bedtime. Medical Branch amLODIPine 2020-04 Yes [id number] 2.5mg Take 1 Univers 2.5 mg 2-30 tablet by ity of tablet 00:00: mouth at [place] 00 bedtime. Medical Branch gabapentin 2020-04- No [id number] 300mg Take 1 Univers 300 mg 2-30 -30 capsule by ity of capsule 00:00: 05:59 mouth 3 [place] 00 :00 (three) Medical times [place] daily for 30 days. gabapentin 2020-04- No [id number] 300mg Take 1 Univers 300 mg 2-30 -30 capsule by ity of capsule 00:00: 05:59 mouth 3 [place] 00 :00 (three) [facility] daily for 30 days. naproxen No 500mg 500 mg, Univ ers (NAPROSYN) 1-24 01-24 Oral, ity of tablet 500 09:00: 07:59 ONCE, 1 [place] mg 00 :00 dose, [facility] 05/09/20 at Branch 0300, Routine NaCl 0.9% 2020- No 1000mL at 999 Uni vers (NS) bolus -24 -24 mL/hr, ity of infusion 08:00: 08:45 1,000 mL, [place] as 1,000 mL 00 :00 IV Medical Infusion, [place] ONCE, 1 dose, [place] 05/09/20 at 0200, STAT naproxen Yes [id number] 500mg Take 1 Univers (NAPROSYN) 1-24 100 tablet by ity of 500 mg 00:00: mouth 2 [place] tablet 00 (two) [facility] daily with meals. norgestimat Yes [id number] 1{tbl} Take 1 Univers e-ethinyl 1-24 100 tablet by ity o f estradioL 00:00: mouth [place] 0.25-35 00 daily. Medical mg-mcg per Branch tablet naproxen Yes [id number] 500mg Take 1 Univers (NAPROSYN) 1-24 100 tablet by ity of 500 mg 00:00: mouth 2 [place] tablet 00 (two) Medical times [place] daily with meals. norgestimat Yes [id number] 1{tbl} Take 1 Univers e-ethinyl 1-24 100 tablet by ity o f estradioL 00:00: mouth [place] 0.25-35 00 daily. Medical mg-mcg per Branch tablet naproxen Yes [id number] 500mg Take 1 Univers (NAPROSYN) 1-24 100 tablet by ity of 500 mg 00:00: mouth 2 [place] tablet 00 (two) Medical times [place] daily with meals. norgestimat Yes [id number] 1{tbl} Take 1 Univers e-ethinyl 1-24 100 tablet by ity o f estradioL 00:00: mouth [place] 0.25-35 00 daily. Medical mg-mcg per Branch tablet naproxen Yes [id number] 500mg Take 1 Univers (NAPROSYN) 1-24 100 tablet by ity of 500 mg 00:00: mouth 2 [place] tablet 00 (two) Medical times [place] daily with meals. norgestimat Yes [id number] 1{tbl} Take 1 Univers e-ethinyl 1-24 100 tablet by ity o f estradioL 00:00: mouth [place] 0.25-35 00 daily. Medical mg-mcg per Branch tablet naproxen Yes [id number] 500mg Take 1 Univers (NAPROSYN) 1-24 100 tablet by ity of 500 mg 00:00: mouth 2 [place] tablet 00 (two) Medical times [place] daily with meals. norgestimat Yes [id number] 1{tbl} Take 1 Univers e-ethinyl 1-24 100 tablet by ity o f estradioL 00:00: mouth [place] 0.25-35 00 daily. Medical mg-mcg per Branch tablet hydrOXYzine 2019- No 25mg 25 mg, Uni vers (ATARAX) 10-01 Oral, ity of tablet 25 00:45: 23:43 ONCE, 1 [place] mg 00 :00 dose, [facility] 10/01/19 at Branch 1945, TANVIR famotidine 2020- No 40mg 40 mg, Univ ers (PEPCID AC) 10-01 Oral, ity of tablet 40 00:30: 23:43 ONCE, 1 [place] mg 00 :00 dose, [facility] 10/01/19 at Branch 1930, TANVIR methylpredn 2020-0 2020- No 125mg 125 mg, U nivers isolone sod 10-01 Intramuscu i ty of succ 00:30: 23:48 lar, ONCE, [place] (SOLU-MEDRO 00 :00 1 dose, Medic al L) Wed Branch injection 10/01/19 at 125 mg 1929, STAT hydrOXYzine 2020-0 Yes [id number] 50mg Take 1 Univers (VISTARIL) 6-17 capsule by ity of 50 mg 00:00: mouth 3 [place] capsule 00 (three) Medical times Branch daily as needed for Itching. famotidine 2020-0 Yes [id number] 40mg Take 1 Univers (PEPCID) 40 6-17 tablet by ity of mg tablet 00:00: mouth [place] 00 daily. Medical Branch benzonatate 2020-0 Yes [id number] 100mg Take 1 Univers 100 mg 6-17 capsule by ity of capsule 00:00: mouth 3 [place] 00 (three) Medical times Branch daily as needed for Cough. hydrOXYzine 2020-0 Yes [id number] 50mg Take 1 Univers (VISTARIL) 6-17 capsule by ity of 50 mg 00:00: mouth 3 [place] capsule 00 (three) Medical times Branch daily as needed for Itching. famotidine 2020-0 Yes [id number] 40mg Take 1 Univers (PEPCID) 40 6-17 tablet by ity of mg tablet 00:00: mouth [place] 00 daily. Medical Branch benzonatate 2020-0 Yes [id number] 100mg Take 1 Univers 100 mg 6-17 capsule by ity of capsule 00:00: mouth 3 [place] 00 (three) Medical times Branch daily as needed for Cough. hydrOXYzine 2020-0 Yes [id number] 50mg Take 1 Univers (VISTARIL) 6-17 capsule by ity of 50 mg 00:00: mouth 3 [place] capsule 00 (three) Medical times Branch daily as needed for Itching. famotidine 2020-0 Yes [id number] 40mg Take 1 Univers (PEPCID) 40 6-17 tablet by ity of mg tablet 00:00: mouth [place] 00 daily. Medical Branch benzonatate 2020-0 Yes [id number] 100mg Take 1 Univers 100 mg 6-17 capsule by ity of capsule 00:00: mouth 3 [place] 00 (three) Medical times Branch daily as needed for Cough. hydrOXYzine 2020-0 Yes [id number] 50mg Take 1 Univers (VISTARIL) 6-17 capsule by ity of 50 mg 00:00: mouth 3 [place] capsule 00 (three) Medical times Branch daily as needed for Itching. famotidine 2020-0 Yes [id number] 40mg Take 1 Univers (PEPCID) 40 6-17 tablet by ity of mg tablet 00:00: mouth [place] 00 daily. Medical Branch benzonatate 2020-0 Yes [id number] 100mg Take 1 Univers 100 mg 6-17 capsule by ity of capsule 00:00: mouth 3 [place] 00 (three) Medical times Branch daily as needed for Cough. hydrOXYzine 2020-0 Yes [id number] 50mg Take 1 Univers (VISTARIL) 6-17 capsule by ity of 50 mg 00:00: mouth 3 [place] capsule 00 (three) Medical times Branch daily as needed for Itching. famotidine 2020-0 Yes [id number] 40mg Take 1 Univers (PEPCID) 40 6-17 tablet by ity of mg tablet 00:00: mouth [place] 00 daily. Medical Branch benzonatate 2020-0 Yes [id number] 100mg Take 1 Univers 100 mg 6-17 capsule by ity of capsule 00:00: mouth 3 [place] 00 (three) Medical times Branch daily as needed for Cough. hydrOXYzine 2020-0 Yes [id number] 50mg Take 1 Univers (VISTARIL) 6-17 capsule by ity of 50 mg 00:00: mouth 3 [place] capsule 00 (three) Medical times Branch daily as needed for Itching. famotidine 2020-0 Yes [id number] 40mg Take 1 Univers (PEPCID) 40 6-17 tablet by ity of mg tablet 00:00: mouth [place] 00 daily. Medical Branch benzonatate 2020-0 Yes [id number] 100mg Take 1 Univers 100 mg 6-17 capsule by ity of capsule 00:00: mouth 3 [place] 00 (three) Medical times Branch daily as needed for Cough. traMADOL 2017-0 Yes 50mg Take 1 Univers [...] Time Observation Value Comments Source Systolic blood 2021-10-28 06:27:00 174 mm[Hg] [facility] [place] [facility] Diastolic blood 2021-10-28 06:27:00 119 mm[Hg] [facility] Heart rate 2021-10-28 06:27:00 88 /min [facility] Body temperature 2021-10-28 06:27:00 36.28 Jen [facility] Respiratory rate 2021-10-28 06:27:00 16 /min [facility] Body height 2021-10-28 06:27:00 162.6 cm [facility] Body weight 2021-10-28 06:27:00 94.53 kg [facility] BMI 2021-10-28 06:27:00 35.77 kg/m2 [facility] Oxygen saturation in 2021-10-28 06:27:00 98 /min University of Arterial blood by [place] [employer] ricardo Pulse oximetry Branch Systolic blood 2021-08-10 20:28:00 160 mm[Hg] Univer sity of pressure [place] [facility] Diastolic blood 2021-08-10 20:28:00 108 mm[Hg] Unive rsity of pressure [place] [facility] Heart rate 2021-08-10 20:28:00 73 /min Universi ty of [place] [facility] Body temperature 2021-08-10 20:28:00 36.61 Jen Univ ersity of [place] [facility] Respiratory rate 2021-08-10 20:28:00 17 /min Univ ersity of [place] [facility] Body height 2021-08-10 20:28:00 162.6 cm Universi ty of [place] [facility] Body weight 2021-08-10 20:28:00 88.905 kg Universi ty of [place] [facility] BMI 2021-08-10 20:28:00 33.64 kg/m2 Universi ty of [place] [facility] Oxygen saturation in 2021-08-10 20:28:00 100 /min University of Arterial blood by [place] [employer] ricardo Pulse oximetry Branch Systolic blood 2021-04-26 00:45:00 148 mm[Hg] Univer sity of pressure [place] [facility] Diastolic blood 2021-04-26 00:45:00 113 mm[Hg] Unive rsity of pressure [place] [facility] Heart rate 2021-04-26 00:45:00 92 /min Universi ty of [place] [facility] Body temperature 2021-04-26 00:45:00 36.11 Jen Univ ersity of [place] [facility] Respiratory rate 2021-04-26 00:45:00 22 /min Univ ersity of [place] [facility] Body height 2021-04-26 00:45:00 162.6 cm Universi ty of [place] [facility] Body weight 2021-04-26 00:45:00 90.719 kg Universi ty of [place] [facility] BMI 2021-04-26 00:45:00 34.33 kg/m2 Universi ty of [place] [facility] Oxygen saturation in 2021-04-26 00:45:00 100 /min University of Arterial blood by [place] [employer] ricardo Pulse oximetry Branch Systolic blood 2021-04-15 04:01:00 149 mm[Hg] Univer sity of pressure [place] [facility] Diastolic blood 2021-04-15 04:01:00 105 mm[Hg] Unive rsity of pressure [place] [facility] Heart rate 2021-04-15 04:01:00 89 /min Universi ty of [place] [facility] Body temperature 2021-04-15 04:01:00 37.17 Jen Univ ersity of [place] [facility] Respiratory rate 2021-04-15 04:01:00 18 /min Univ ersity of [place] [facility] Body height 2021-04-15 04:01:00 162.6 cm Universi ty of [place] [facility] Body weight 2021-04-15 04:01:00 90.719 kg Universi ty of [place] [facility] BMI 2021-04-15 04:01:00 34.33 kg/m2 Universi ty of [place] [facility] Oxygen saturation in 2021-04-15 04:01:00 100 /min University of Arterial blood by [facility] Pulse oximetry Branch Systolic blood 2020-05-09 08:00:00 126 mm[Hg] Univer sity of pressure [place] [facility] Diastolic blood 2020-05-09 08:00:00 74 mm[Hg] Unive rsity of pressure [place] [facility] Heart rate 2020-05-09 08:00:00 78 /min Universi ty of [place] [facility] Respiratory rate 2020-05-09 08:00:00 18 /min Univ ersity of [place] [facility] Oxygen saturation in 2020-05-09 08:00:00 99 /min University of Arterial blood by [facility] Pulse oximetry Branch Body temperature 2020-05-09 06:23:00 36.5 Jen Univ ersity of [place] [facility] Body height 2020-05-09 06:16:00 162.6 cm Universi ty of [place] [facility] Body weight 2020-05-09 06:16:00 88.451 kg Universi ty of [place] [facility] BMI 2020-05-09 06:16:00 33.47 kg/m2 Universi ty of [place] [facility] Systolic blood 2020-05-09 08:00:00 126 mm[Hg] Univer sity of pressure [place] [facility] Diastolic blood 2020-05-09 08:00:00 74 mm[Hg] Unive rsity of pressure [place] [facility] Heart rate 2020-05-09 08:00:00 78 /min Universi ty of [place] [facility] Respiratory rate 2020-05-09 08:00:00 18 /min Univ ersity of [place] [facility] Oxygen saturation in 2020-05-09 08:00:00 99 /min University of Arterial blood by [facility] Pulse oximetry Branch Body temperature 2020-05-09 06:23:00 36.5 Jen Univ ersity of [place] [facility] Body height 2020-05-09 06:16:00 162.6 cm Universi ty of [place] [facility] Body weight 2020-05-09 06:16:00 88.451 kg Universi ty of [place] [facility] BMI 2020-05-09 06:16:00 33.47 kg/m2 Universi ty of [place] [facility] Systolic blood 2019-10-01 22:46:00 172 mm[Hg] Univer sity of pressure [place] [facility] Diastolic blood 2019-10-01 22:46:00 88 mm[Hg] Unive rsity of pressure [place] [facility] Heart rate 2019-10-01 22:46:00 100 /min Universi ty of [place] [facility] Body temperature 2019-10-01 22:46:00 36.67 Jen Univ ersity of [place] [facility] Respiratory rate 2019-10-01 22:46:00 16 /min Univ ersity of [place] [facility] Body height 2019-10-01 22:46:00 160 cm Universi ty of [place] [facility] Body weight 2019-10-01 22:46:00 88.451 kg Universi ty [facility] [place] [facility] BMI 2019-10-01 22:46:00 34.54 kg/m2 Universi ty of [place] [facility] Oxygen saturation in 2019-10-01 22:46:00 100 /min University of Arterial blood by [facility] Pulse oximetry Branch Systolic blood 2019-10-01 22:46:00 172 mm[Hg] Univer sity of pressure [place] [facility] Diastolic blood 2019-10-01 22:46:00 88 mm[Hg] Unive rsity of pressure [place] [facility] Heart rate 2019-10-01 22:46:00 100 /min Universi ty of [place] [facility] Body temperature 2019-10-01 22:46:00 36.67 Jen Univ ersity of [place] [facility] Respiratory rate 2019-10-01 22:46:00 16 /min Univ ersity of [place] [facility] Body height 2019-10-01 22:46:00 160 cm Universi ty [facility] [place] [facility] Body weight 2019-10-01 22:46:00 88.451 kg Universi ty of [place] [facility] BMI 2019-10-01 22:46:00 34.54 kg/m2 Universi ty of [place] [facility] Oxygen saturation in 2019-10-01 22:46:00 100 /min [facility] of Arterial blood by [place] [facility] ricardo Pulse oximetry Branch Diastolic blood 2018-12-30 19:59:00 107 mm[Hg] Unive rsity of pressure [place] [facility] Heart rate 2018-12-30 19:59:00 85 /min Universi ty of [place] [facility] Body temperature 2018-12-30 19:59:00 37 Jen Univ ersity of [place] [facility] Respiratory rate 2018-12-30 19:59:00 16 /min Univ ersity of [place] [facility] Body weight 2018-12-30 19:59:00 86.183 kg Universi ty of [place] [facility] BMI 2018-12-30 19:59:00 32.61 kg/m2 Universi ty of [place] [facility] Oxygen saturation in 2018-12-30 19:59:00 100 /min University of Arterial blood by [place] [facility] ricardo Pulse oximetry Branch Systolic blood 2018-12-30 19:59:00 165 mm[Hg] Univer sity of pressure [place] [facility] Diastolic blood 2018-12-30 19:59:00 107 mm[Hg] Unive rsity of pressure [place] [facility] Heart rate 2018-12-30 19:59:00 85 /min Universi ty of [place] [facility] Body temperature 2018-12-30 19:59:00 37 Jen Univ ersity of [place] [facility] Respiratory rate 2018-12-30 19:59:00 16 /min Univ ersity of [place] [facility] Body weight 2018-12-30 19:59:00 86.183 kg Universi ty of [place] [facility] BMI 2018-12-30 19:59:00 32.61 kg/m2 Universi ty of [place] [facility] Oxygen saturation in 2018-12-30 19:59:00 100 /min University of Arterial blood by [place] Medi ricardo Pulse oximetry Branch Systolic blood 2018-12-30 19:59:00 165 mm[Hg] Univer sity of pressure [place] [facility] Procedures Procedure Date / Time Performed Performing Clinician [facility] e CONSENT/REFUSAL FOR 2021-10-28 06:12:45 Doctor Unassigned, No Un iversity of [place] DIAGNOSIS AND Name Medical Branch TREATMENT NOTICE OF PRIVACY 2021-08-10 20:22:03 Doctor Unassigned, No Univ ersity of [facility] Name Medical Branch CONSENT/REFUSAL FOR 2021-08-10 20:20:00 Doctor Unassigned, No Un iversity of [place] DIAGNOSIS AND Name Medical Branch TREATMENT [place] INJECTION AA&/STRD 2021-04-26 02:11:49 [facility] EACH Medical Br anch BRANCH POCT TEST 2021-04-26 01:11:00 Chris Rodriguez [facility] NOTICE OF PRIVACY 2021-04-26 00:35:44 Doctor Unassigned, No Univ ersity [facility] Name Medical Branch CONSENT/REFUSAL FOR 2021-04-26 00:35:26 Doctor Unassigned, No Un iversity [facility] DIAGNOSIS AND Name Medical Branch TREATMENT POCT TEST 2021-04-15 04:16:00 Sarah Joel [facility] NOTICE OF PRIVACY 2021-04-15 03:49:11 Doctor [facility]assigned, No [facility] Name Medical Branch CONSENT/REFUSAL FOR 2021-04-15 03:42:10 Doctor Unassigned, No Un iversity of [place] DIAGNOSIS AND Name Medical Branch TREATMENT TEST, SERUM 2020-05-09 06:50:00 Faby Stone [facility] HB ABO GROUPING 2020-05-09 06:50:00 Faby Stone [facility] BASIC METABOLIC PANEL 2020-05-09 06:39:00 Faby Stone [facility] (NA, K, CL, CO2, Medical Branch GLUCOSE, BUN, CREATININE, CA) CBC WITH DIFF 2020-05-09 06:39:00 Faby Stone [facility] URINALYSIS 2020-05-09 06:39:00 Faby Stone [facility] POCT TEST 2020-05-09 06:31:00 Faby Stone [facility] NOTICE OF PRIVACY 2020-05-09 06:12:27 Doctor Unassigned, No Univ ersity of [place] [facility]ACTICES Name Medical Branch CONSENT/REFUSAL FOR 2020-05-09 06:09:51 Doctor Unassigned, No Un [facility]ity of [place] DIAGNOSIS AND Name Medical Branch TREATMENT CONSENT/REFUSAL FOR 2020-05-09 06:09:50 Doctor Unassigned, No Un iversity of [place] DIAGNOSIS AND Name Medical Branch TREATMENT CONSENT/REFUSAL FOR 2020-05-09 06:09:49 Doctor Unassigned, No Un iversity of [place] DIAGNOSIS AND Name Medical Branch TREATMENT CONSENT/REFUSAL FOR 2020-05-09 06:09:48 Doctor Unassigned, No Un iversity of [place] DIAGNOSIS AND Name Medical Branch TREATMENT CONSENT/REFUSAL FOR 2020-05-09 06:09:47 Doctor Unassigned, No Un iversity of [place] DIAGNOSIS AND Name Medical Branch TREATMENT CONSENT/REFUSAL FOR 2020-05-09 06:09:45 Doctor Unassigned, No Un iversity of [place] DIAGNOSIS AND Name Medical Branch TREATMENT CONSENT/REFUSAL FOR 2020-05-09 06:09:44 Doctor Unassigned, No Un i[facility]ity of [place] DIAGNOSIS AND Name Medical Branch TREATMENT COVID-19 (ID NOW RAPID 2019-10-01 23:52:00 [facility] Medical Branch CONSENT/REFUSAL FOR 2019-10-01 22:35:59 Doctor Unassigned, No Un [facility] of [place] DIAGNOSIS AND Name Medical Branch TREATMENT URINALYSIS 2018-12-30 21:08:00 Myrna Myers [facility] POCT TEST 2018-12-30 21:08:00 Myrna Myers [facility] NOTICE OF PRIVACY 2018-12-30 19:33:39 Doctor Unassigned, No Univ ersity of [place] [facility]ACT[facility] Name Medical Branch Encounters Start End Encounter Admission Attending Care Care Encounter Source Date/Time Date/Time Type Type Clinicians Facility Department ID 2021-10-28 2021-10-28 Emergency X KRISTAL GALLEGOS ERT [id number] Univers 01:33:00 02:01:00 JARED pereira [facility] [place] [facility] 2021-10-28 2021-10-28 Emergency El [facility] [id number] Univers 01:33:00 02:01:00 Jared CALIX [id number] [facility] [id number] [facility] [id number] [address] 2021-08-10 2021-08-10 Emergency X [facility] ERT [id number] Univers 15:29:00 16:34:00 OFELIA pereira [facility] [place] [facility] 2021-08-10 2021-08-10 [facility] [id number] Univers 15:29:00 16:34:00 Ofelia CALIX [id number] i ty of [place] [id number] [facility] [id number] [address] 2021-04-25 2021-04-25 Emergency [facility] [id number] Univers 18:47:00 20:45:00 CHRIS pereira [facility] [place] [facility] 2021-04-25 2021-04-25 Emergency [facility] [id number] Univers 18:47:00 20:45:00 Chris CALIX [id number] i ty of [place] [id number] [facility] [id number] [address] 2021-04-14 2021-04-14 Emergency [facility] [id number] Univers 22:04:00 23:00:00 Sarah VELEZANUSHKA [id number] ity of [facility] [id number] [facility] [id number] [address] 2021-04-14 2021-04-14 Emergency [facility] ERT [id number] Univers 22:04:00 23:00:00 SARAH pereira [facility] [place] [facility] 2020-05-09 2020-05-09 Emergency [facility] [id number] Univers 00:11:00 03:03:00 Faby Calix [id number] i ty of [place] [id number] [facility] [id number] [address] 2020-05-09 2020-05-09 Emergency Chase [facility] [id number] 00:11:00 03:03:00 Faby Patel Erskine 350.1.13.10 [place] 4.2.7.2.686 [place] [id number] [facility] 2020-05-09 2020-05-09 Emergency X CHASE [facility] ERT [id number] [facility] 00:11:00 00:11:00 [facility] 2019-10-01 2019-10-01 Emergency Braydon Lee [facility] [id number] Univers 17:49:15 20:06:00 Pat Erskine 350.1.13.10 i ty of [place] 4.2.7.[address] [place] [id number] 2019-10-01 2019-10-01 Emergency Braydon Lee [facility] [id number] 17:49:15 20:06:00 Pat Velezton 350.1.13.10 [place] [address] [place] [address] [id number] [facility] 2019-10-01 2019-10-01 Emergency X [facility] ERT [id number] Univers 17:36:00 17:36:[facility] 2018-12-30 2018-12-30 Emergency [facility] [id number] Univers 14:58:03 17:46:00 Myrna Acevedo Erskine 350.1.13.10 i ty of [place] 4.2.7.2.[address] [place] [address] [id number] 2018-12-30 2018-12-30 [facility] [id number] 14:58:03 17:46:00 Myrna R Erskine 350.1.13.10 [place] [address] [place] [address] [id number] Results Test Description Test Time Test Comments Results Result Comments Source POCT TEST 2021-04-26 01:11:00 Test Item Value Reference Range Interpretation Comme nts POCT PREG (test code = 1605) negative On board controls acceptable with C Line (test code = 3574) present POCT PREG LOT # (test code = 3575) [id number] POCT PREG TEST DATE (test code = 3576) 06/13/2022 Lab Interpretation (test code = 97268-2) [facility] [id number] 04:16:00 Test Item Value Reference Range Interpretation Comments POCT PREG (test code = 1605) neg On board controls acceptable with yes C Line (test code = 3574) POCT PREG LOT # (test code = 3575) [id number] POCT PREG TEST DATE (test 06/13/2022 code = 3576) Lab Interpretation (test code = Normal 20172-0) [facility], [id number] 07:35:00 Test Item Value Reference Range Interpretation Comments PREG SERUM (test code Negative = 3280072727) AL (test code = AL) Less than 10 IU/L. ?If low titer or ectopic is suspected, resubmit specimen in 48-72 hours. [facility]Type and Screen - ONCE [id number] 07:34:36 Test Item Value Reference Range Interpretation Comments ABO & RH (test code O Positive Performe d at [facility] = 20) Laboratory Serv [facility] [place] [address] Free: [phone] A No. [id number] IAT (test code = Negative Performed a t [facility] 1185) Laboratory Serv [facility] [place], [place] [id number] Free: [phone] A No. [id number] [facility]URINALYSIS2021-01-24 07:28:00 Test Item Value Reference Range Interpretation Comments APPEARANCE (test code = Clear Clear 0166276639) COLOR (test code = Red Yellow A 9973375786) PH (test code = 4.8-8.0 2410143254) SP GRAVITY (test code = 1.003-1.030 L 7390640702) GLU U QUAL (test code = Normal Normal 9648042909) BLOOD (test code = 3+ Negative A 6852769970) KETONES (test code = Negative Negative 9244052816) PROTEIN (test code = 30 mg/dL Negative A 2887-8) UROBILIN (test code = Normal Normal 6759751339) BILIRUBIN (test code = Negative Negative 6452783238) NITRITE (test code = Negative Negative 2447068243) LEUK RANJANA (test code = 25/uL Negative A 5335300576) RBC/HPF (test code = See_Comment H [Autom ated message] 6217970341) The system [employer] generated this result transmitted ref erence range: 0 - 3 HP F. The reference range was not used to int erpret this result as normal/abnormal . WBC/HPF (test code = See_Comment H [Autom ated message] 3626075191) The system [employer] generated this result transmitted ref erence range: 0 - 5 HP F. The reference range was not used to int erpret this result as normal/abnormal . BACTERIA (test code = Few Negative A 4589289602) SQ EPITH (test code = <1 HPF 6967902346) Lab Interpretation (test Abnormal code = 08750-5) [facility] METABOLIC PANEL (NA, K, CL, CO2, GLUCOSE, BUN, CREATININE, CA)2020-05-09 07:11:00 Test Item Value Reference Range Interpretation Comments NA (test code = 138 mmol/L 135-145 0470559146) K (test code = 3.7 mmol/L 3.5-5 1124115459) CL (test code = 105 mmol/L 98-108 3232406627) CO2 TOTAL (test code = 23 mmol/L 23-31 7140656086) AGAP (test code = 2-16 8325586814) BUN (test code = 14 mg/dL 7-23 5589884881) GLUCOSE (test code = 101 mg/dL 70-110 0016747033) CREATININE (test code 0.61 mg/dL 0.5-1.04 = 1115425710) CALCIUM (test code = 9.2 mg/dL 8.6-10.6 8802369784) eGFR Calculation mL/min/1.73m2 (Non-) (test code = 0444948229) eGFR Calculation mL/min/1.73m2 () (test code = 0493379383) AL (test code = AL) Association of [...] or urine or abnormalities in imaging tests). [facility] WITH [id number] 06:47:00 Test Item Value Reference Range Interpretation Comments WBC (test code = See_Comment [Automated 0005-2) message] The sy stem which generated this result transmitted reference range : 4.30 - 11.10 10*3/?L. The reference range was not used to interpret this result as normal/abnormal . RBC (test code = See_Comment L [Automated 741-8) message] The sy stem which generated this [...] RDW-SD (test code = 46.9 fL 39-49.9 58951-4) RDW-CV (test code = 16.3 % 12-15.5 H 788-0) PLT (test code = See_Comment [Automated 777-3) message] The sy stem which generated this result transmitted reference range : 166 - 358 10*3/ ?L. The reference r duane was not used to interpret this result as normal/abnormal . MPV (test code = 10.7 fL 9.5-12.9 05539-3) NRBC/100 WBC (test See_Comment [Automat ed code = 8762759424) message] The system which generated this result transmitted reference range : 0.0 - 10.0 /100 WBCs. The refer ence range was not u sed to interpret th is result as normal/abnormal . NRBC x10^3 (test code <0.01 See_Comment [Auto mated = 8762106381) message] The s ystem which generated this result transmitted reference range : 10*3/?L. The reference range was not used to interpret this result as normal/abnormal . GRAN MAT (NEUT) % 56.2 % (test code = 770-8) IMM GRAN % (test code 0.00 % = 4967805023) LYMPH % (test code = 33.9 % 736-9) MONO % (test code = 6.9 % 5905-5) EOS % (test code = 2.4 % 713-8) BASO % (test code = 0.6 % 706-2) GRAN MAT x10^3(ANC) 2.62 10*3/uL 1.88-7.09 (test code = 5594291390) IMM GRAN x10^3 (test <0.03 0-0.06 code = 0986031288) LYMPH x10^3 (test code 1.58 10*3/uL 1.32-3.29 = 731-0) MONO x10^3 (test code 0.32 10*3/uL 0.33-0.92 L = 742-7) EOS x10^3 (test code = 0.11 10*3/uL 0.03-0.39 711-2) BASO x10^3 (test code 0.03 10*3/uL 0.01-0.07 = 704-7) Lab Interpretation Abnormal (test code = 04940-8) [facility] [id number] 06:31:00 Test Item Value Reference Range Interpretation Comments POCT PREG (test code = 1605) negative On board controls acceptable with positive C Line (test code = 3574) POCT PREG LOT # (test code = 3575) [id number] POCT PREG TEST DATE (test 02/12/2021 code = 3576) Lab Interpretation (test code = Normal 88571-2) [facility]OVID[facility] (ID NOW RAPID TESTING)2019-10-02 00:40:00 Test Item Value Reference Range Interpretation Comments SARS-CoV-2 Rapid ID NOW Positive Not Detected A (test code = 58886-1) AL (test code = AL) ID NOW COVID-19 Assay is an isothermal nucleic acid amplification test intended for the qualitative detection of nucleic acid from SARS-CoV-2 viral RNA in nasopharyngeal (GUN BARREL FINISHER) specimens. It is used under Emergency Use [...] indicated. Lab Interpretation Abnormal (test code = 88774-2) [facility]2019-09-16 22:04:00 Test Item Value Reference Range Interpretation Comments APPEARANCE (test code = Clear Clear 7510251413) COLOR (test code = Straw Yellow A 3511861838) PH (test code = 4.8-8.0 4100104154) SP GRAVITY (test code = 1.003-1.030 3132014552) GLU U QUAL (test code = Normal Normal 4110140464) BLOOD (test code = Negative Negative 4327622976) KETONES (test code = Negative Negative 5669057718) PROTEIN (test code = Negative Negative 2887-8) UROBILIN (test code = Normal Normal 0449566098) BILIRUBIN (test code = Negative Negative 8570380474) NITRITE (test code = Negative Negative 6757866515) LEUK RANJANA (test code = 25/uL Negative A 4451677997) RBC/HPF (test code = See_Comment [Autom ated message] 5463757840) The system [employer] generated this result transmitted ref erence range: 0 - 3 HP F. The reference range was not used to int erpret this result as normal/abnormal . WBC/HPF (test code = See_Comment [Autom ated message] 8107498307) The system [employer] generated this result transmitted ref erence range: 0 - 5 HP F. The reference range was not used to int erpret this result as normal/abnormal . BACTERIA (test code = Negative Negative 6430389644) SQ EPITH (test code = HPF 5345673317) Lab Interpretation (test Abnormal code = 27736-8) [facility] [id number] 21:08:00 Test Item Value Reference Range Interpretation Comments POCT PREG (test code = 1605) negative On board controls acceptable with present C Line (test code = 3574) POCT PREG LOT # (test code = 3575) [id number] POCT PREG TEST DATE (test 04-15-2020 code = 3576) Lab Interpretation (test code = Normal 46117-8) [facility]"
[2021-12-02] MEDS ORDERED: ONDANSETRON 4 MG/2 ML VIAL ONE (17:06)
[2021-12-02] MEDS ORDERED: NA CHLORIDE 0.9% 1,000 ML ONE (17:06)
[2021-12-02] MEDS ORDERED: ONDANSETRON 4 MG (ODT) TAB ONE (17:17)
[2021-12-02 17:21] LABS: Albumin 3.6 g/dL (3.4-5.0); Bilirubin Total 0.3 mg/dL (0.2-1.0); Potassium 3.7 mmol/L (3.5-5.1); Protein, Total 7.5 g/dL (6.4-8.2)
[2021-12-02 18:08] LABS: Urine Blood Negative (Negative); Urine Glucose Negative (Negative); Urine Protein Negative (Negative); Urine Specific Gravity <=1.005 (1.005-1.030)
[2021-12-02 18:11] LABS: Absolute Lymphocytes (CBC) 0.5 K/uL (0.7-4.9); MCV 77.8 fL (80-100); MPV 7.9 fL (7.6-11.3); RBC Red Blood Cell Count 3.85 M/uL (3.86-4.86)
--- NOTE | 2021-12-02 18:44 | ER ---
Nurse's Notes [facility] Name: Joyce Mera Age: 36 yrs Sex: Female : 1985 Arrival Date: 12/02/2021 Time: 16:30 Bed 10 Private MD: Diagnosis: Infectious mononucleosis, unspecified without complication Presentation: 12/02 16:33 Chief complaint: Patient states: I started having a bad stomach lissette, vomiting, body bm7 aches, and a bad head ache since yesterday. I did a home covid test and it was negative. Dr. Vizcarra said to still come in and get checked out. Coronavirus screen: Client presents with at least one sign or symptom that may indicate coronavirus-19. Standard/surgical mask placed on the client. Ebola Screen: No symptoms or risks identified at this time. Initial Sepsis Screen: Does the patient meet any 2 criteria? No. Patient's initial sepsis screen is negative. Does the patient have a suspected source of infection? No. Patient's initial sepsis screen is negative. Risk Assessment: Do you want to hurt yourself or someone else? Patient reports no desire to harm self or others. Onset of symptoms was December 02, 2021. 16:33 Method Of Arrival: Ambulatory bm7 16:33 Acuity: ALICIA 4 bm7 Triage Assessment: 16:38 Headache History: Denies prior headaches. General: Appears in no apparent distress. bm7 uncomfortable, Behavior is calm, cooperative, appropriate for age. Pain: Complains of pain in forehead Pain does not radiate. Pain currently is 10 out of 10 on a pain scale. Pain began gradually, Also complains of decreased appetite, nausea. EENT: No deficits noted. No signs and/or symptoms were reported regarding the EENT system. Neuro: Level of Consciousness is awake, alert, obeys commands, Oriented to person, place, time, situation, Facial symmetry appears normal, Pupils are PERRLA. Cardiovascular: No deficits noted. Respiratory: No deficits noted. GI: Abdomen is round non-distended, Reports cramping, nausea, vomiting. : No deficits noted. No signs and/or symptoms were reported regarding the genitourinary system. Derm: No deficits noted. No signs and/or symptoms reported regarding the dermatologic system. Musculoskeletal: No deficits noted. No signs and/or symptoms reported regarding the musculoskeletal system. 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 - Social history:: Smoking status: Patient/guardian denies using tobacco products. Screenin:00 Abuse screen: Denies threats or abuse. Denies injuries from another. Nutritional kb3 screening: No deficits noted. Tuberculosis screening: No symptoms or risk factors identified. Fall Risk None identified. Assessment: 17:00 Reassessment: No changes from previously documented assessment. Patient and/or family kb3 updated on plan of care and expected duration. Pain level reassessed. 17:00 General: Appears in no apparent distress. comfortable, Behavior is calm, cooperative. kb3 17:00 Pain: Complains of pain in head and abdomen. kb3 17:50 General: Pt ambulatory to restroom without distress. Urine specimen collected. kb3 17:52 General: Attempted to place IV at site specified by pt. Unsuccessful attempt. PT kb3 refusing further. ROOF TILE LAYER notified. Zofran given ODT. Vital Signs: 16:33 BP 144 / 98; Pulse 88; Resp 16; Temp 97.5(TE); Pulse Ox 100% on R/A; Weight 87.54 kg bm7 (R); Height 5 ft. 3 in. (160.02 cm); Pain 10/10; 18:00 BP 135 / 75; Pulse 72; Resp 20; Pulse Ox 100% ; Pain 5/10; kb3 19:00 BP 131 / 80; Pulse 78; Resp 20; Pulse Ox 100% ; Pain 2/10; kb3 16:33 Body Mass Index 34.19 (87.54 kg, 160.02 cm) 7 [place] Coma Score: 18:26 Eye Response: spontaneous(4). Verbal Response: oriented(5). Motor Response: obeys kb commands(6). Total: 15. ED Course: 16:30 Patient arrived in ED. as 16:30 Gissel Villela FNP-C is [facility]. kb 16:30 Shreyas Mera MD is Attending Physician. kb 16:38 Triage completed. bm7 16:38 Arm band placed on left wrist. bm7 16:40 COVID swab sent to lab. Flu and/or RSV swab sent to lab. bm7 16:52 Crystal Brooks, RN is Primary Nurse. kb3 17:00 Patient has correct armband on for positive identification. Bed in low position. Call kb3 light in reach. Side rails up X 1. 17:00 No provider procedures requiring assistance completed. Missed attempt(s): 20 gauge in kb3 left antecubital area. 18:28 Urine Microscopic Only Sent. kb3 19:20 Patient did not have IV access during this emergency room visit. kb3 Administered Medications: 17:51 Not Given (No IV access, pt refusing further attempts to place IV. Zofran ODT given. ROOF TILE LAYER kb3 notified.): Zofran (Ondansetron) 4 mg IVP once; over 2 minutes 17:52 Not Given (No IV access. Pt refusing further attempts. ROOF TILE LAYER notifiedd): NS 0.9% 1000 ml kb3 IV at 1 bolus Per protocol; 1000 mL bolus Medication: 17:00 VIS not applicable for this client. kb3 Outcome: 18:44 Discharge ordered by . kb 19:19 Discharged to home ambulatory. kb3 19:19 Condition: good 19:19 Discharge instructions given to patient, Instructed on discharge instructions, follow up and referral plans. medication usage, safety practices, Demonstrated understanding of instructions, follow-up care, medications, Prescriptions given X 1. 19:20 Patient left the ED. kb3 Signatures: Gissel Villela FNP-C GAME ADVISOR-Toma Lawrence Brittany, RN RN bm7 Crystal Brooks, RN RN kb3
--- NOTE | 2021-12-02 18:44 | EDPHYS ---
Physician Documentation [facility] Name: Joyce Mera Age: 36 yrs Sex: Female : 1985 Arrival Date: 12/02/2021 Time: 16:30 Bed 10 Private MD: ED Physician Shreyas Mera HPI: 12/02 18:27 This 36 yrs old Female presents to ER via Ambulatory with complaints of Headache, kb Cough, Vomiting/Diarrhea, body aches. 18:27 The patient or guardian reports cough, that is intermittent, described as mild, flu kb symptoms, myalgias. Onset: The symptoms/episode began/occurred yesterday. Severity of symptoms: At their worst the symptoms were moderate, in the emergency department the symptoms are unchanged. Modifying factors: The symptoms are alleviated by nothing, the symptoms are aggravated by nothing. Associated signs and symptoms: Pertinent positives: nausea, vomiting, Pertinent negatives: chest pain, diarrhea, ear ache, fever, rhinorrhea, sore throat. The patient has not experienced similar symptoms in the past. The patient has not recently seen a physician. Pt reports nausea, vomiting, cough, bodyaches, headache that started yesterday. 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 - Social history:: Smoking status: Patient/guardian denies using tobacco products. ROS: 18:28 Cardiovascular: Negative for chest pain, palpitations, and edema. kb 18:28 Constitutional: Positive for body aches, malaise. 18:28 Respiratory: Positive for cough. 18:28 Abdomen/GI: Positive for nausea and vomiting, Negative for abdominal pain, diarrhea, constipation. 18:28 Neuro: Positive for headache. 18:28 All other systems are negative. Exam: 18:28 Constitutional: This is a well developed, well nourished patient who is awake, alert, kb and in no acute distress. Head/Face: Normocephalic, atraumatic. ENT: Moist Mucous membranes Cardiovascular: Regular rate and rhythm with a normal S1 and S2. No gallops, murmurs, or rubs. No pulse deficits. Respiratory: Respirations even and unlabored. No increased work of breathing. Talking in full sentences Abdomen/GI: Soft, non-tender. No distention Skin: Warm, dry with normal turgor. Normal color. MS/ Extremity: Pulses equal, no cyanosis. Neurovascular intact. Full, normal range of motion. Neuro: Awake and alert, GCS 15, oriented to person, place, time, and situation. Moves all extremities. Normal gait. Psych: Awake, alert, with orientation to person, place and time. Behavior, mood, and affect are within normal limits. Vital Signs: 16:33 BP 144 / 98; Pulse 88; Resp 16; Temp 97.5(TE); Pulse Ox 100% on R/A; Weight 87.54 kg bm7 (R); Height 5 ft. 3 in. (160.02 cm); Pain 10/10; 18:00 BP 135 / 75; Pulse 72; Resp 20; Pulse Ox 100% ; Pain 5/10; kb3 19:00 BP 131 / 80; Pulse 78; Resp 20; Pulse Ox 100% ; Pain 2/10; kb3 16:33 Body Mass Index 34.19 (87.54 kg, 160.02 cm) bm7 [place] Coma Score: 18:26 Eye Response: spontaneous(4). Verbal Response: oriented(5). Motor Response: obeys kb commands(6). Total: 15. MDM: 16:31 Patient medically screened. kb 18:26 Data reviewed: vital signs, nurses notes. Data interpreted: Pulse oximetry: on room air kb is 100 %. Interpretation: normal. 18:43 Counseling: I had a detailed discussion with the patient and/or guardian regarding: the kb historical points, exam findings, and any diagnostic results supporting the discharge/admit diagnosis, lab results, the need for outpatient follow up, a family practitioner, to return to the emergency department if symptoms worsen or persist or if there are any questions or concerns that arise at home. 12/02 16:35 Order name: CBC with Diff; Complete Time: 18:26 kb 12/02 16:35 Order name: CMP; Complete Time: 17:27 kb 12/02 16:35 Order name: Lipase; Complete Time: 17:27 kb 12/02 16:35 Order name: COVID-19 SARS RT PCR (Document "Date of Onset" if Symptomatic); Complete kb Time: 17:42 12/02 16:35 Order name: Flu; Complete Time: 17:27 kb 12/02 17:43 Order name: [place] Screen Profile; Complete Time: 18:43 kb 12/02 16:35 Order name: IV Saline Lock; Complete Time: 16:56 kb 12/02 16:35 Order name: Labs collected and sent; Complete Time: 16:56 kb 12/02 17:43 Order name: Urine Dipstick-Ancillary (obtain specimen); Complete Time: 18:07 kb 12/02 18:09 Order name: Urine Dipstick-Ancillary; Complete Time: 18:09 EDMS 12/02 18:09 Order name: Urine Microscopic Only; Complete Time: 18:53 kb 12/02 18:50 Order name: Urine Culture EDMS Administered Medications: 17:51 Not Given (No IV access, pt refusing further attempts to place IV. Zofran ODT given. FIREARMS SPECIALIST kb3 notified.): Zofran (Ondansetron) 4 mg IVP once; over 2 minutes 17:52 Not Given (No IV access. Pt refusing further attempts. FIREARMS SPECIALIST notifiedd): NS 0.9% 1000 ml kb3 IV at 1 bolus Per protocol; 1000 mL bolus Disposition Summary: 12/02/21 18:44 Discharge Ordered Location: Home kb Condition: Stable kb Diagnosis - Infectious mononucleosis, unspecified without complication kb Followup: kb - With: Emergency Department - When: As needed - Reason: Worsening of condition Followup: kb - With: Private Physician - When: 2 - 3 days - Reason: Recheck today's complaints, Continuance of care, Re-evaluation by your physician Discharge Instructions: - Discharge Summary Sheet kb - Infectious Mononucleosis kb Forms: - Medication Reconciliation Form kb - Thank You Letter kb - Work release form kb - Antibiotic Education kb - Prescription Opioid Use kb Prescriptions: - Zofran 4 mg Oral Tablet - take 1 tablet by ORAL route every 6 hours As needed; 20 tablet; Refills: 0, kb Product Selection Permitted Signatures: Dispatcher [employer] EDMS Gissel Villela, ZAHRA-C MACHINE DYER-Anila Love, RN RN bm7 Crystal Brooks RN kb3
[2021-12-02 18:47] LABS: Urine Bacteria 20-50 /HPF (<20); Urine Mucus 1+ /HPF (None Seen); Urine RBC <5 /HPF (None Seen)
[2021-12-02 20:41] VITALS: TEMP 97.5; O2SAT 100
[2021-12-02 20:57] VITALS: BP 131/80
== END 2021-12-02 19:20 | disposition home or self-care (01) ==
LOC: ER 16:28
DX: B27.90 Infectious mononucleosis, unspecified without complication (principal); Z20.822 Contact with and (suspected) exposure to COVID-19; I10 Essential (primary) hypertension; F41.9 Anxiety disorder, unspecified
CPT/HCPCS: 87088; 85025; 87086; 36415; 86308; 83690; 80053; 87804 ×2; 99283; U0003; Q0162; J7030; J2405; 81003; 81015

== ENCOUNTER 2022-05-08 18:34 | Emergency (ER) | payer OTHER ==
--- OUTSIDE RECORDS SUMMARY | 2022-05-08 18:41 | XMS REPORT | Continuity of Care Document ---
:1985 Author Organization [facility] t Address [address] [place] [place] [address] Care Team Providers Name Role Phone Guy Vizcarra Primary Care Physician Guy Vizcarra Attending Clinician Unavailable WALI CORNELL Attending Clinician Unavailable Wali Jacques Attending Clinician LUZ MARINA TAYLOR Attending Clinician Unavailable Luz Marina Taylor MD Attending Clinician [phone] JARED GALLEGOS Attending Clinician Unavailable Jared Gallegos [...] Type Policy Number Effective Date Expiration Date [facility] [id number] 2020 CHOICE [place] STAR 00:00:00 Problems Condition Condition Condition Status Onset Resolution Last Treating Co mments Source Name Details Category Date Date Treatment Clinician Date Coffee Coffee Disease Active [facility] ground ground 08-18 [facility] em[facility] emesis [facility]: Medical 00 Center Acute Acute Disease Active Overview: [facility] blood loss blood loss 08-18 Formattin [facility] anemia anemia 00:00: g of this Medical 00 note Center might be different from the original. In [facility] for transfer to [facility] from [facility] to [place] for acute blood loss anemia with [...] at [facility] in [facility] for transfer. 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 Sp ludmila blood loss anemia - CHI secondary [facility] blood [facility] loss Medical (chronic) Center Benign Benign Problem Common essential essential Spir it hypertensi hypertensi - CHI on on [facility] Menorrhagi Menorrhagi Problem C ommon a a Spirit - [facility] Chronic Chronic Problem Common fatigue fatigue Spirit syndrome - [facility] [id number] Other Problem Common obesity Spirit due to - CHI excess [facility] Abnormal Abnormal Problem Commo n uterine bleeding Spirit bleeding in - [facility] menstrual [facility] [id number] Acute pain Problem C ommon of right Spirit knee - [facility] Decreased Other Problem Common blood decreased Spirit leucocyte white - CHI number blood cell St (WBC) [facility] [id number] RLS Problem Common (restless Spirit legs - CHI syndrome) [facility] [id number] Neuropathy Problem Co mmon Spirit - CHI [facility] [id number] GERD Problem Common without Spirit esophagiti - CHI s [facility] [id number] Body mass Problem Com mon index [facility] [BMI] - CHI 34.0-34.9, [facility] [id number] Peripheral Problem Co mmon tear of Spirit medial - CHI meniscus St of right [facility] knee as Medical current Center injury, subsequent encounter No known No known Disease Unive rs active active ity of problems problems [facility] Allergies, Adverse Reactions, Alerts Allergy Allergy Status Severity Reaction(s) Onset Inactive Treating Comm ents Source Name Type Date Date Clinician NO KNOWN Drug Active Univers ALLERGIE Class ity of S [facility] Social History Social Habit Start Date Stop Date Quantity Comments Source History of Tobacco Common Spirit - CHI Use [facility] Center Exposure to 2022-03-13 2022-03-23 Not sure [facility] SARS-CoV-2 (event) 00:00:00 22:23[facility]00 [facility] Sex Assigned At [birth year] [facility] Medical 00:00:00 00:00:00 Center Smoking Status Start Date Stop Date Source Never Smoker Common Spirit - [facility] Medications Ordered Filled Start Stop Current Ordering Indication Dosage Frequency Signature Comments Components Source Medication Medication Date Date Medication? Clinician (SIG) Name Name methocarbam 2021-04 Yes 500mg 500 mg, Un earlene oL 05-25 Oral, QID, ity of (ROBAXIN) 05:15: First dose [place] tablet 500 00 on [facility] mg 03/23/22 at Branch 2315, Until Discontinu ed, Routine ibuprofen 2021-04 800mg 800 mg, Uni vers (IBU) 05-25 Oral, ity of tablet 800 05:00: 05:16 ONCE, 1 [place] mg 00 :00 dose, On Medical [place] Branch 03/23/22 at 2315, TANVIR ibuprofen 2021-04 Yes [id number] 600mg Take 1 U nivers 600 mg 2- tablet by ity of tablet 00:00: mouth [place] 00 every 8 Medical (eight) Branch hours as needed for Pain (scale 4-6). gabapentin 2021-04 Yes [id number] 300mg Take 1 Univers 300 mg 2-09 capsule by ity of capsule 00:00: mouth 3 [place] 00 (three) Medical times Branch daily as needed for Pain (scale 7-10). methocarbam 2021-04 Yes [id number] 500mg Take 1 Univers oL 500 mg 2-08 tablet by ity o f tablet 00:00: mouth 3 [place] (three) Medical times Branch daily as needed for Pain (scale 7-10). ketorolac 2021-04- No 30mg 30 mg, Unive rs (TORADOL) 0-13 10-13 Intramuscu ity of injection 05:45: 05:56 lar, ONCE, [place] 30 mg 00 :00 1 dose, On Medical [place] Branch 01/26/22 at 0045, TANVIR cyclobenzap 2021-04 Yes [id number] 5mg Take 1 Univers rine 5 mg 0-13 tablet by ity o f tablet 00:00: mouth in [place] 00 the Medical morning Branch and 1 tablet at noon and 1 tablet in the evening. gabapentin 2021-04 Yes [id number] 300mg Take 1 Univers 300 mg 0-13 capsule by ity of capsule 00:00: mouth in [place] 00 the Medical morning Branch and 1 capsule at noon and 1 capsule in the evening. cyclobenzap 2021-04- No [id number] 5mg Take 1 Univers rine 5 mg 0-13 12-08 tablet by ity of tablet 00:00: 00:00 mouth in [place] 00 :00 the Medical morning Branch and 1 tablet at noon and 1 tablet in the evening. gabapentin 2021-04- No [id number] 300mg Take 1 Univers 300 mg 0-13 12-08 capsule by ity of capsule 00:00: 00:00 mouth in [place] 00 :00 the Medical morning Branch and 1 capsule at noon and 1 capsule in the evening. Mobic 7.5 Mobic 7.5 2021- No 1{table QD Mobic 7.5 MG MG 9-07 10-07 t} MG 00:00: 00:00 00 :00 Mobic 7.5 Mobic 7.5 2021- No 1{table QD Mobic 7.5 MG MG 9-10 23-07 t} MG 00:00: 00:00 00 :00 Mobic 7.5 Mobic 7.5 2021- No 1{table QD Mobic 7.5 MG MG 9-10 23-07 t} MG 00:00: 00:00 00 :00 Mobic 7.5 Mobic 7.5 2021- No 1{table QD Mobic 7.5 MG MG 9-10 23- t} MG 00:00: 00:00 00 :00 Mobic 7.5 Mobic 7.5 2021- No 1{table QD Mobic 7.5 MG MG 9-10 23-07 t} MG 00:00: 00:00 00 :00 Mobic 7.5 Mobic 7.5 2021- No 1{table QD Mobic 7.5 MG MG 9-10 23-07 t} MG 00:00: 00:00 00 :00 gabapentin 2021-0 2021- No 600mg 600 mg, Un earlene (NEURONTIN) 7-15 07-15 Oral, ity of capsule 600 07:00: 06:56 ONCE, 1 [place] mg 00 :00 dose, On Medical Fri Branch 10/28/21 at 0200, TANVIR gabapentin 2021-0 Yes [id number] 600mg Take 1 Univers 600 mg 7-15 07 tablet by ity of tablet 00:00: mouth in [place] [address] the morning Branch and 1 tablet in the evening. gabapentin 2021-0 Yes [id number] 600mg Take 1 Univers 600 mg 7-15 07 tablet by ity of tablet 00:00: mouth in [place] [address] the Branch and 1 tablet in the evening. gabapentin 2021-0 2021- No [id number] 600mg Take 1 Univers 600 mg 7-15 12-08 07 tablet by ity of tablet 00:00: 00:00 mouth in [place] 00 :00 the [facility] Branch and 1 tablet in the evening. methylPREDN 2021-0 Yes [id number] Take by [facility] ISolone 4-27 mouth ity of (MEDROL, 00:00: SEE-INSTRU [place] TREASURE,) 4 mg 00 CTIONS. Medica l tablets follow Branch package directions methylPREDN Yes [id number] Take by Univers ISolone 08-10 mouth ity of (MEDROL, 00:00: SEE-INSTRU [place] as TREASURE,) 4 mg 00 CTIONS. Medica l tablets follow Branch package directions methylPREDN Yes [id number] Take by Univers ISolone 08-10 mouth ity of (MEDROL, 00:00: SEE-INSTRU [place] TREASURE,) 4 mg 00 CTIONS. Medica l tablets follow Branch package directions methylPREDN 2021- No [id number] Take by Univers ISolone 08-1008 mouth ity of (MEDROL, 00:00: 00:00 [place]-INSTRU [place] TREASURE,) 4 mg 00 :00 CTIONS. Medica l tablets follow Branch package directions gabapentin 2021- No [id number] 300mg Take 1 Univers 300 mg 08-10 capsule by ity of capsule 00:00: 04:59 mouth 3 [place] 00 :00 (three) Medical times Branch daily for 10 days. methocarbam 2021- No [id number] 500mg Take 1 Univers oL 500 mg 08-1003 tablet by ity of tablet 00:00: 04:59 mouth 3 [place] 00 :00 (three) Medical times Branch daily [...] 04/14/21 at 2315, TANVIR amLODIPine 2020-04 Yes [id number] 2.5mg Take 1 Univers 2.5 mg 2-30 tablet by ity of tablet 00:00: mouth at [place] 00 bedtime. Medical Branch amLODIPine 2020-04 Yes [id number] 2.5mg Take 1 Univers 2.5 mg 2-30 tablet by ity of tablet 00:00: mouth at [place] [address] bedtime. Medical Branch amLODIPine 2020-04 Yes [id number] 2.5mg Take 1 Univers 2.5 mg 2-30 tablet by ity of tablet 00:00: mouth at [place] [address] bedtime. Medical Branch amLODIPine 2020-04 Yes [id number] 2.5mg Take 1 Univers 2.5 mg 2-30 tablet by ity of tablet 00:00: mouth at [place] [address] bedtime. Medical Branch amLODIPine 2020-04 Yes [id number] 2.5mg Take 1 Univers 2.5 mg 2-30 tablet by ity of tablet 00:00: mouth at [place] [address] bedtime. Medical Branch amLODIPine 2020-04 Yes [id number] 2.5mg Take 1 Univers 2.5 mg 2-30 tablet by ity of tablet 00:00: mouth at [place] [address] bedtime. Medical Branch gabapentin 2020-04- No [id number] 300mg Take 1 Univers 300 mg 2-30 01-30 capsule by ity of capsule 00:00: 05:59 mouth 3 [place] 00 :00 (three) Medical times Branch daily for 30 days. gabapentin 2020-04- No [id number] 300mg Take 1 Univers 300 mg 2-30 01-30 capsule by ity of capsule 00:00: 05:59 mouth 3 [place] 00 :00 (three) Medical times [place] daily for 30 days. Kenalog Kenalog 2020-04 No 40mg Common (Triamcinol (Triamcinol 2-07 S pirit one) one) 00:00: - CHI 00 [facility] Kenalog Kenalog 2020-04 No 40mg Common (Triamcinol (Triamcinol 2-07 S pirit one) one) 00:00: - CHI 00 [facility] Kenalog Kenalog 2020-04 No 40mg Common (Triamcinol (Triamcinol 2-07 S pirit one) one) 00:00: - CHI 00 [facility] Kenalog Kenalog 2020-04 No 40mg Common (Triamcinol (Triamcinol 2-07 S pirit one) one) 00:00: - CHI 00 [facility] Kenalog Kenalog 2020-04 No 40mg Common (Triamcinol (Triamcinol 2-07 S pirit one) one) 00:00: - CHI 00 [facility] 2020-04 No 40mg Common (Triamcinol (Triamcinol 2-07 S pirit one) one) 00:00: - CHI 00 [facility] 2020-04 No 40mg Common (Triamcinol (Triamcinol 2-07 S pirit one) one) 00:00: - CHI 00 [facility] 2020-04 No 40mg Common (Triamcinol (Triamcinol 2-07 S pirit one) one) 00:00: - CHI 00 [facility] 2020-04 No 40mg Common (Triamcinol (Triamcinol 2-07 S pirit one) one) 00:00: - CHI 00 [facility] 2020-04 No 40mg Common (Triamcinol (Triamcinol 2-07 S pirit one) one) 00:00: - CHI 00 [facility] 2020-04 No 40mg Common (Triamcinol (Triamcinol 2-07 S pirit one) one) 00:00: - CHI 00 [facility] 2020-04 No 40mg Common (Triamcinol (Triamcinol 2-07 S pirit one) one) 00:00: - CHI 00 [facility] 2020-04 No 40mg Common (Triamcinol (Triamcinol 2-07 S pirit one) one) 00:00: - CHI 00 [facility] 2020-04 No 40mg Common (Triamcinol (Triamcinol 2-07 S pirit one) one) 00:00: - CHI [facility] naproxen 2020- No 500mg 500 mg, Univ ers (NAPROSYN) 05-09 Oral, ity of tablet 500 09:00: 07:59 ONCE, 1 [place] as mg 00 :00 dose, [facility] 05/09/20 at Branch 0300, Routine NaCl 0.9% 2020- No 1000mL at 999 Uni vers (NS) bolus 1-24 01-24 mL/hr, ity of infusion 08:00: 08:45 1,000 mL, [place] 1,000 mL 00 :00 IV Medical Infusion, Branch ONCE, 1 dose, 05/09/20 at 0200, STAT naproxen 0 Yes [id number] 500mg Take 1 Univers (NAPROSYN) 1-24 100 tablet by ity of 500 mg 00:00: mouth 2 [place] tablet 00 (two) Medical times Branch daily with meals. norgestimat Yes [id number] 1{tbl} Take 1 Univers e-ethinyl 1-24 100 tablet by ity o f estradioL 00:00: mouth [place] 0.25-35 00 daily. Medical mg-mcg per Branch tablet naproxen Yes [id number] 500mg Take 1 Univers (NAPROSYN) 1-24 100 tablet by ity of 500 mg 00:00: mouth 2 [place] tablet 00 (two) Medical times Branch daily with meals. norgestimat Yes [id number] 1{tbl} Take 1 Univers e-ethinyl 1-24 100 tablet by ity o f estradioL 00:00: mouth [place] 0.25-35 00 daily. Medical mg-mcg per Branch tablet naproxen 0 Yes [id number] 500mg Take 1 Univers (NAPROSYN) 1-24 100 tablet by ity of 500 mg 00:00: mouth 2 [place] tablet 00 (two) Medical times Branch daily with meals. norgestimat Yes [id number] 1{tbl} Take 1 Univers e-ethinyl 1-24 100 tablet by ity o f estradioL 00:00: mouth [place] 0.25-35 00 daily. Medical mg-mcg per Branch tablet naproxen 2020-0 Yes [id number] 500mg Take 1 Univers (NAPROSYN) 1-24 100 tablet by ity of 500 mg 00:00: mouth 2 [place] tablet 00 (two) Medical times Branch daily with meals. norgestimat 0 Yes [id number] 1{tbl} Take 1 Univers e-ethinyl 1-24 100 tablet by ity o f estradioL 00:00: mouth [place] 0.25-35 00 daily. Medical mg-mcg per Branch tablet naproxen Yes [id number] 500mg Take 1 Univers (NAPROSYN) 1-24 100 tablet by ity of 500 mg 00:00: mouth 2 [place] tablet 00 (two) Medical times [place] daily with meals. norgestimat Yes [id number] 1{tbl} Take 1 Univers e-ethinyl 1-24 100 tablet by ity o f estradioL 00:00: mouth [place] 0.25-35 00 daily. Medical mg-mcg per Branch tablet naproxen Yes [id number] 500mg Take 1 Univers (NAPROSYN) 1-24 100 tablet by ity of 500 mg 00:00: mouth 2 [place] tablet 00 (two) Medical times [place] daily with meals. norgestimat Yes [id number] 1{tbl} Take 1 Univers e-ethinyl 1-24 100 tablet by ity o f estradioL 00:00: mouth [place] 0.25-35 00 daily. Medical mg-mcg per Branch tablet naproxen 2021- No [id number] 500mg Take 1 Univers (NAPROSYN) 1-24 12-08 100 tablet by ity of 500 mg 00:00: 00:00 mouth 2 [place] tablet 00 :00 (two) Medical times [place] daily with meals. norgestimat 2021- No [id number] 1{tbl} Take 1 Univers e-ethinyl 1-24 12-08 100 tablet by ity of estradioL 00:00: 00:00 mouth [place] 0.25-35 00 :00 daily. Medical mg-mcg per Branch tablet hydrOXYzine 2019- No 25mg 25 mg, Uni vers (ATARAX) 10-01 Oral, ity of tablet 25 00:45: 23:43 ONCE, 1 [place] mg 00 :00 dose, [facility] Medical 10/01/19 at Branch 1945, TANVIR famotidine 2019- No 40mg 40 mg, Univ ers (PEPCID AC) 10-01 Oral, ity of tablet 40 00:30: 23:43 ONCE, 1 [place] mg 00 :00 dose, [facility] Medical 10/01/19 at Branch 1930, TANVIR methylpredn 2019- No 125mg 125 mg, U nivers isolone sod 10-01 Intramuscu i ty of succ 00:30: 23:48 lar, ONCE, [place] (SOLU-MEDRO 00 :00 1 dose, Medic al L) Wed Branch injection 10/01/19 at 125 mg 1930, STAT hydrOXYzine 2020-0 Yes [id number] 50mg Take 1 Univers (VISTARIL) 6-17 capsule by ity of 50 mg 00:00: mouth 3 [place] capsule 00 (three) Medical times Branch daily as needed for Itching. famotidine 2020-0 Yes [id number] 40mg Take 1 Univers (PEPCID) 40 6-17 tablet by ity of mg tablet 00:00: mouth [place] 00 daily. Medical Branch benzonatate 2020-0 Yes [id number] 100mg Take 1 Univers 100 mg 6-17 capsule by ity of capsule 00:00: mouth 3 [place] 00 (three) Medical times Branch daily as needed for Cough. hydrOXYzine 2020-0 Yes [id number] 50mg Take 1 Univers (VISTARIL) 6-17 capsule by ity of 50 mg 00:00: mouth 3 [place] capsule 00 (three) Medical times Branch daily as needed for Itching. famotidine 2020-0 Yes [id number] 40mg Take 1 Univers (PEPCID) 40 6-17 tablet by ity of mg tablet 00:00: mouth [place] 00 daily. Medical Branch benzonatate 2020-0 Yes [id number] 100mg Take 1 Univers 100 mg 6-17 capsule by ity of capsule 00:00: mouth 3 [place] 00 (three) Medical times Branch daily as needed for Cough. hydrOXYzine 2020-0 Yes [id number] 50mg Take 1 Univers (VISTARIL) 6-17 capsule by ity of 50 mg 00:00: mouth 3 [place] capsule 00 (three) Medical times Branch daily as needed for Itching. famotidine 2020-0 Yes [id number] 40mg Take 1 Univers (PEPCID) 40 6-17 tablet by ity of mg tablet 00:00: mouth [place] 00 daily. Medical Branch benzonatate 2020-0 Yes [id number] 100mg Take 1 Univers 100 mg 6-17 capsule by ity of capsule 00:00: mouth 3 [place] 00 (three) Medical times Branch daily as needed for Cough. hydrOXYzine 2020-0 Yes [id number] 50mg Take 1 Univers (VISTARIL) 6-17 capsule by ity of 50 mg 00:00: mouth 3 [place] capsule 00 (three) Medical times Branch daily as needed for Itching. famotidine 2020-0 Yes [id number] 40mg Take 1 Univers (PEPCID) 40 6-17 tablet by ity of mg tablet 00:00: mouth [place] 00 daily. Medical Branch benzonatate 2020-0 Yes [id number] 100mg Take 1 Univers 100 mg 6-17 capsule by ity of capsule 00:00: mouth 3 [place] 00 (three) Medical times Branch daily as needed for Cough. hydrOXYzine 2020-0 Yes [id number] 50mg Take 1 Univers (VISTARIL) 6-17 capsule by ity of 50 mg 00:00: mouth 3 [place] capsule 00 (three) Medical times Branch daily as needed for Itching. famotidine 2020-0 Yes [id number] 40mg Take 1 Univers (PEPCID) 40 6-17 tablet by ity of mg tablet 00:00: mouth [place] 00 daily. Medical Branch benzonatate 2020-0 Yes [id number] 100mg Take 1 Univers 100 mg 6-17 capsule by ity of capsule 00:00: mouth 3 [place] 00 (three) Medical times Branch daily as needed for Cough. famotidine 2020-0 Yes [id number] 40mg Take 1 Univers (PEPCID) 40 6-17 tablet by ity of mg tablet 00:00: mouth [place] 00 daily. Medical Branch hydrOXYzine 2020-0 Yes [id number] 50mg Take 1 Univers (VISTARIL) 6-17 capsule by ity of 50 mg 00:00: mouth 3 [place] capsule 00 (three) Medical times Branch daily as needed for Itching. famotidine 2020-0 Yes [id number] 40mg Take 1 Univers (PEPCID) 40 6-17 tablet by ity of mg tablet 00:00: mouth [place] 00 daily. Medical Branch benzonatate 2020-0 Yes [id number] 100mg Take 1 Univers 100 mg 6-17 capsule by ity of capsule 00:00: mouth 3 [place] 00 (three) Medical times Branch daily as needed for Cough. hydrOXYzine 2020-0 Yes [id number] 50mg Take 1 Univers (VISTARIL) 6-17 capsule by ity of 50 mg 00:00: mouth 3 [place] capsule 00 (three) Medical times Branch daily as needed for Itching. famotidine 2019- Yes [id number] 40mg Take 1 Univers (PEPCID) 40 6-17 tablet by ity of mg tablet 00:00: mouth [place] 00 daily. Medical Branch benzonatate 2019-0 Yes [id number] 100mg Take 1 Univers 100 mg 6-17 capsule by ity of capsule 00:00: mouth 3 [place] 00 (three) Medical times Branch daily as needed for Cough. hydrOXYzine 2021- No [id number] 50mg Take 1 Univers (VISTARIL) 6-17 12-08 capsule by it y of 50 mg 00:00: 00:00 mouth 3 [place] capsule 00 :00 (three) Medical times Branch daily as needed for Itching. benzonatate 2021- No [id number] 100mg Take 1 Univers 100 mg 6-17 12-08 capsule by ity of capsule 00:00: 00:00 mouth 3 [place] 00 :00 (three) Medical times Branch daily as needed [...] as needed for Pain (scale 7-10). traMADOL Yes 50mg Take 1 Univers (ULTRAM) 50 4-15 tablet by ity of mg tablet 00:00: mouth [place] 00 every 6 Medical (six) Branch hours as needed for Pain (scale 7-10). traMADOL Yes 50mg Take 1 Univers (ULTRAM) 50 4-15 tablet by ity of mg tablet 00:00: mouth [place] 00 every 6 Medical (six) Branch hours as needed for Pain (scale 7-10). traMADOL 2021- No 50mg Take 1 Univer s (ULTRAM) 50 4-15 12-08 tablet by it y of mg tablet 00:00: 00:00 mouth [place] 00 :00 every 6 Medical (six) Branch hours as needed for Pain (scale 7-10). Gabapentin Gabapentin No 1{table TID Gabapentin 600 MG 600 MG t} 600 MG Urea 20 % Urea 20 % No 1{appli QD Urea 20 % cation_ as_need ed} amLODIPine amLODIPine No QD amLODIPine Besylate 5 Besylate 5 Besylate 5 MG MG MG hydroCHLORO hydroCHLORO No QD hydroCHLOR thiazide 25 thiazide 25 Othiazide MG MG 25 MG Gabapentin Gabapentin No 1{capsu TID Gabapentin 600 MG 600 MG le} 600 MG hydroCHLORO hydroCHLORO No hydroCHLOR thiazide 25 thiazide 25 Othiazide MG MG 25 MG Urea 20 % Urea 20 % No 1{appli QD Urea 20 % cation_ as_need ed} amLODIPine amLODIPine No QD amLODIPine Besylate 5 Besylate 5 Besylate 5 MG MG MG Gabapentin Gabapentin No 1{capsu TID Gabapentin 600 MG 600 MG le} 600 MG hydroCHLORO hydroCHLORO No hydroCHLOR thiazide 25 thiazide 25 Othiazide MG MG 25 MG Urea 20 % Urea 20 % No 1{appli QD Urea 20 % cation_ as_need ed} amLODIPine amLODIPine No QD amLODIPine Besylate 5 Besylate 5 Besylate 5 MG MG MG hydroCHLORO hydroCHLORO No hydroCHLOR thiazide 25 thiazide 25 Othiazide MG MG 25 MG Urea 20 % Urea 20 % No 1{appli QD Urea 20 % cation_ as_need ed} amLODIPine amLODIPine No QD amLODIPine Besylate 5 Besylate 5 Besylate 5 MG MG MG Gabapentin Gabapentin No 1{capsu TID Gabapentin 600 MG 600 MG le} 600 MG amLODIPine amLODIPine No QD amLODIPine Besylate 5 Besylate 5 Besylate 5 MG MG MG hydroCHLORO hydroCHLORO No hydroCHLOR thiazide 25 thiazide 25 Othiazide MG MG 25 MG Gabapentin Gabapentin No 1{capsu TID Gabapentin 600 MG 600 MG le} 600 MG Urea 20 % Urea 20 % No 1{appli QD Urea 20 % cation_ as_need ed} Urea 20 % Urea 20 % No 1{appli QD Urea 20 % cation_ as_need ed} hydroCHLORO hydroCHLORO No QD hydroCHLOR thiazide 25 thiazide 25 Othiazide MG MG 25 MG Gabapentin Gabapentin No 1{capsu TID Gabapentin 600 MG 600 MG le} 600 MG amLODIPine amLODIPine No QD amLODIPine Besylate 5 Besylate 5 Besylate 5 MG MG MG Urea 20 % Urea 20 % No 1{appli QD Urea 20 % cation_ as_need ed} hydroCHLORO hydroCHLORO No QD hydroCHLOR thiazide 25 thiazide 25 Othiazide MG MG 25 MG Gabapentin Gabapentin No 1{capsu TID Gabapentin 600 MG 600 MG le} 600 MG amLODIPine amLODIPine No QD amLODIPine Besylate 5 Besylate 5 Besylate 5 MG MG MG Gabapentin Gabapentin No 1{capsu TID Gabapentin 600 MG 600 MG le} 600 MG hydroCHLORO hydroCHLORO No hydroCHLOR thiazide 25 thiazide 25 Othiazide MG MG 25 MG Urea 20 % Urea 20 % No 1{appli QD Urea 20 % cation_ as_need ed} amLODIPine amLODIPine No QD amLODIPine Besylate 5 Besylate 5 Besylate 5 MG MG MG Gabapentin Gabapentin No 1{capsu TID Gabapentin 600 MG 600 MG le} 600 MG hydroCHLORO hydroCHLORO No hydroCHLOR thiazide 25 thiazide 25 Othiazide MG MG 25 MG Urea 20 % Urea 20 % No 1{appli QD Urea 20 % cation_ as_need ed} amLODIPine amLODIPine No QD amLODIPine Besylate 5 Besylate 5 Besylate 5 MG MG MG hydroCHLORO hydroCHLORO No hydroCHLOR thiazide 25 thiazide 25 Othiazide MG MG 25 MG Urea 20 % Urea 20 % No 1{appli QD Urea 20 % cation_ as_need ed} amLODIPine amLODIPine No QD amLODIPine Besylate 5 Besylate 5 Besylate 5 MG MG MG Gabapentin Gabapentin No 1{capsu TID Gabapentin 600 MG 600 MG le} 600 MG amLODIPine amLODIPine No QD amLODIPine Besylate 5 Besylate 5 Besylate 5 MG MG MG hydroCHLORO hydroCHLORO No hydroCHLOR thiazide 25 thiazide 25 Othiazide MG MG 25 MG Gabapentin Gabapentin No 1{capsu TID Gabapentin 600 MG 600 MG le} 600 MG Urea 20 % Urea 20 % No 1{appli QD Urea 20 % cation_ as_need ed} Urea 20 % Urea 20 % No 1{appli QD Urea 20 % cation_ as_need ed} amLODIPine amLODIPine No QD amLODIPine Besylate 5 Besylate 5 Besylate 5 MG MG MG hydroCHLORO hydroCHLORO No hydroCHLOR thiazide 25 thiazide 25 Othiazide MG MG 25 MG Gabapentin Gabapentin No 1{capsu TID Gabapentin 600 MG 600 MG le} 600 MG hydroCHLORO hydroCHLORO No QD hydroCHLOR thiazide 25 thiazide 25 Othiazide MG MG 25 MG amLODIPine amLODIPine No QD amLODIPine Besylate 5 Besylate 5 Besylate 5 MG MG MG Urea 20 % Urea 20 % No 1{appli QD Urea 20 % cation_ as_need ed} amLODIPine amLODIPine No QD amLODIPine Besylate 5 Besylate 5 Besylate 5 MG MG MG hydroCHLORO hydroCHLORO No hydroCHLOR thiazide 25 thiazide 25 Othiazide MG MG 25 MG Gabapentin Gabapentin No 1{capsu TID Gabapentin 600 MG 600 MG le} 600 MG hydroCHLORO hydroCHLORO No QD hydroCHLOR thiazide 25 thiazide 25 Othiazide MG MG 25 MG amLODIPine amLODIPine No QD amLODIPine Besylate 5 Besylate 5 Besylate 5 MG MG MG hydroCHLORO hydroCHLORO No hydroCHLOR thiazide 25 thiazide 25 Othiazide MG MG 25 MG amLODIPine amLODIPine No QD amLODIPine Besylate 5 Besylate 5 Besylate 5 MG MG MG Gabapentin Gabapentin No 1{table TID Gabapentin 600 MG 600 MG t} 600 MG Urea 20 % Urea 20 % No 1{appli QD Urea 20 % cation_ as_need ed} amLODIPine amLODIPine No QD amLODIPine Besylate 5 Besylate 5 Besylate 5 MG MG MG hydroCHLORO hydroCHLORO No QD hydroCHLOR thiazide 25 thiazide 25 Othiazide MG MG 25 MG hydroCHLORO hydroCHLORO No hydroCHLOR thiazide 25 thiazide 25 Othiazide MG MG 25 MG amLODIPine amLODIPine No QD amLODIPine Besylate 5 Besylate 5 Besylate 5 MG MG MG Vital Signs Vital Name Observation Time Observation Value Comments Source Systolic blood 2022-03-24 06:11:54 157 mm[Hg] [facility] Diastolic blood 2022-03-24 06:11:54 109 mm[Hg] Unive rsity of pressure [facility] Heart rate 2022-03-24 06:11:54 71 /min Universi ty [facility] Respiratory rate 2022-03-24 06:11:54 18 /min [facility] in 2022-03-24 06:11:54 100 /min [facility] Arterial blood by [facility] Pulse oximetry Branch Body temperature 2022-03-24 04:25:00 36.61 Jen [facility] Body height 2022-03-24 04:25:00 162.6 cm [facility] Body weight 2022-03-24 04:25:00 86.183 kg [facility] BMI 2022-03-24 04:25:00 32.61 kg/m2 [facility] height 2022-02-28 16:30:00 63 [in_i] [facility] weight 2022-02-28 16:30:00 187.0 [lb_av] Common [facility] temperature 2022-02-28 16:30:00 97.2 [degF] [facility] bmi 2022-02-28 16:30:00 33.12 kg/m2 [facility] oximetry 2022-02-28 16:30:00 98 % [facility] respiratory rate 2022-02-28 16:30:00 18 /min Comm on [facility] blood pressure 2022-02-28 16:30:00 134 mm[Hg] Common [facility] - systolic [facility] blood pressure 2022-02-28 16:30:00 64 mm[Hg] Common [facility] - diastolic [facility] Systolic blood 2022-01-26 05:30:00 141 mm[Hg] Univer sity of [facility] Diastolic blood 2022-01-26 05:30:00 96 mm[Hg] Unive rsity of pressure [facility] Heart rate 2022-01-26 05:30:00 91 /min [facility] Body temperature 2022-01-26 05:30:00 36.78 Jen [facility] Respiratory rate 2022-01-26 05:30:00 18 /min [facility] Body height 2022-01-26 05:30:00 152.4 cm Universi ty of [facility] Body weight 2022-01-26 05:30:00 86.183 kg Universi ty [facility] BMI 2022-01-26 05:30:00 37.11 kg/m2 Universi [facility] Oxygen saturation in 2022-01-26 05:30:00 98 /min [facility] Arterial blood by [facility] Pulse oximetry Branch height 2022-01-18 08:45:00 63 [in_i] Common [facility] weight 2022-01-18 08:45:00 192 [lb_av] [facility] temperature 2022-01-18 08:45:00 97.4 [degF] Common [facility] bmi 2022-01-18 08:45:00 34.01 kg/m2 [facility] blood pressure 2022-01-18 08:45:00 130 mm[Hg] [facility] - [facility] blood pressure 2022-01-18 08:45:00 80 mm[Hg] [facility] - diastolic [facility] height 2021-12-21 10:00:00 63 [in_i] Common [facility] weight 2021-12-21 10:00:00 192 [lb_av] Common [facility] temperature 2021-12-21 10:00:00 97.8 [degF] Common [facility] bmi 2021-12-21 10:00:00 34.01 kg/m2 [facility] blood pressure 2021-12-21 10:00:00 128 mm[Hg] [facility] - systolic [facility] blood pressure 2021-12-21 10:00:00 78 mm[Hg] [facility] - diastolic [facility] Systolic blood 2021-10-28 06:27:00 174 mm[Hg] Univer sity of pressure [facility] Diastolic blood 2021-10-28 06:27:00 119 mm[Hg] Unive rsity of pressure [facility] Heart rate 2021-10-28 06:27:00 88 /min Universi ty [facility] Body temperature 2021-10-28 06:27:00 36.28 Jen Univ ers[facility] Respiratory rate 2021-10-28 06:27:00 16 /min Univ [facility] Body height 2021-10-28 06:27:00 162.6 cm [facility] Body weight 2021-10-28 06:27:00 94.53 kg [facility] BMI 2021-10-28 06:27:00 35.77 kg/m2 [facility] Oxygen saturation in 2021-10-28 06:27:00 98 /min University of [facility]terial blood by [place] [facility] Pulse oximetry Branch Systolic blood 2021-08-10 20:28:00 160 mm[Hg] Univer sity of pressure [facility] Diastolic blood 2021-08-10 20:28:00 108 mm[Hg] Unive rsity of pressure [facility] Heart rate 2021-08-10 20:28:00 73 /min [facility]i ty [facility] Body temperature 2021-08-10 20:28:00 36.61 Jen Univ [facility] Respiratory rate 2021-08-10 20:28:00 17 /min Univ [facility] Body height 2021-08-10 20:28:00 162.6 cm [facility] Body weight 2021-08-10 20:28:00 88.905 kg [facility] BMI 2021-08-10 20:28:00 33.64 kg/m2 [facility] Oxygen saturation in 2021-08-10 20:28:00 100 /min University of Arterial blood by [facility] ricardo Pulse oximetry Branch Systolic blood 2021-04-26 00:45:00 148 mm[Hg] Univer sity of pressure [facility] Diastolic blood 2021-04-26 00:45:00 113 mm[Hg] Unive rsity of pressure [facility] Heart rate 2021-04-26 00:45:00 92 /min Universi ty [facility] Body temperature 2021-04-26 00:45:00 36.11 Jen Univ [facility] Respiratory rate 2021-04-26 00:45:00 22 /min Univ ers[facility] Body height 2021-04-26 00:45:00 162.6 cm Universi ty [facility] Body weight 2021-04-26 00:45:00 90.719 kg [facility]i ty [facility] BMI 2021-04-26 00:45:00 34.33 kg/m2 [facility] ty [facility] Oxygen saturation in 2021-04-26 00:45:00 100 /min University of Arterial blood by [place] [facility] Pulse oximetry Branch Systolic blood 2021-04-15 04:01:00 149 mm[Hg] Univer sity of pressure [facility] Diastolic blood 2021-04-15 04:01:00 105 mm[Hg] Unive rsity of pressure [facility] Heart rate 2021-04-15 04:01:00 89 /min Universi ty [facility] Body temperature 2021-04-15 04:01:00 37.17 Jen Univ [facility] Respiratory rate 2021-04-15 04:01:00 18 /min Univ [facility] Body height 2021-04-15 04:01:00 162.6 cm [facility] ty [facility] Body weight 2021-04-15 04:01:00 90.719 kg [facility] BMI 2021-04-15 04:01:00 34.33 kg/m2 [facility] Oxygen saturation in 2021-04-15 04:01:00 100 /min University of Arterial blood by [place] [facility] Pulse oximetry Branch Systolic blood 2020-05-09 08:00:00 126 mm[Hg] Univer sity of pressure [facility] Diastolic blood 2020-05-09 08:00:00 74 mm[Hg] Unive rsity of pressure [facility] Heart rate 2020-05-09 08:00:00 78 /min Universi ty [facility] Respiratory rate 2020-05-09 08:00:00 18 /min Univ ers[facility] Oxygen saturation in 2020-05-09 08:00:00 99 /min University of Arterial blood by [facility] Pulse oximetry Branch Body temperature 2020-05-09 06:23:00 36.5 Jen [facility] Body height 2020-05-09 06:16:00 162.6 cm [facility] [place] [facility] [place] Body weight 2020-05-09 06:16:00 88.451 kg [facility] BMI 2020-05-09 06:16:00 33.47 kg/m2 [facility] Systolic blood 2020-05-09 08:00:00 126 mm[Hg] Univer sity of pressure [facility] Diastolic blood 2020-05-09 08:00:00 74 mm[Hg] Unive rsity of pressure [facility] [place] Heart rate 2020-05-09 08:00:00 78 /min Universi ty [facility] Respiratory rate 2020-05-09 08:00:00 18 /min Univ [facility] [place] [facility] [place] Oxygen saturation in 2020-05-09 08:00:00 99 /min University of Arterial blood by [facility] Pulse oximetry Branch Body temperature [...] 2019-10-01 22:46:00 34.54 kg/m2 Universi ty [facility] Oxygen saturation in 2019-10-01 22:46:00 100 /min University of Arterial blood by [facility] ricardo Pulse oximetry Branch Systolic blood 2019-10-01 22:46:00 172 mm[Hg] Univer sity of pressure [facility] Diastolic blood 2019-10-01 22:46:00 88 mm[Hg] Unive rsity of pressure [facility] Heart rate 2019-10-01 22:46:00 100 [...] 2019-10-01 22:46:00 34.54 kg/m2 [facility] Oxygen saturation in 2019-10-01 22:46:00 100 /min University of Arterial blood by [facility] Pulse oximetry Branch Diastolic blood 2018-12-30 19:59:00 107 mm[Hg] Unive rsity of pressure [facility] Heart rate 2018-12-30 19:59:00 85 /min [facility] ty [facility] Body temperature 2018-12-30 19:59:00 37 Jen Univ [facility] Respiratory rate 2018-12-30 19:59:00 16 /min Univ [facility] Body weight 2018-12-30 19:59:00 86.183 kg [facility] BMI 2018-12-30 19:59:00 32.61 kg/m2 [facility] Oxygen saturation in 2018-12-30 19:59:00 100 /min University of Arterial blood by [facility] Pulse oximetry Branch Systolic blood 2018-12-30 19:59:00 165 mm[Hg] Univer sity of pressure [facility] Diastolic blood 2018-12-30 19:59:00 107 mm[Hg] Unive rsity of pressure [facility] Heart rate 2018-12-30 19:59:00 85 /min Universi [facility] Body temperature 2018-12-30 19:59:00 37 Jen [facility] Respiratory rate 2018-12-30 19:59:00 16 /min [facility] Body weight 2018-12-30 19:59:[address] [facility] BMI 2018-12-30 19:59:00 32.61 kg/m2 [facility] Oxygen saturation in 2018-12-30 19:59:00 100 /min [facility] Arterial blood by [facility] Pulse oximetry Branch Systolic blood 2018-12-30 19:59:00 165 mm[Hg] Univer sity of [facility] [place] Procedures Procedure Date / Time Performed Performing Clinician Sourc e POCT TEST 2022-03-24 05:17:00 Wali Cornell [facility] CONSENT/REFUSAL FOR 2022-03-24 04:14:52 Doctor Unassigned, No [facility] [place] DIAGNOSIS AND Name Medical Branch TREATMENT CONSENT/REFUSAL FOR 2022-01-26 05:28:11 Doctor Unassigned, No [facility] [place] DIAGNOSIS AND Name Medical Branch TREATMENT CONSENT/REFUSAL FOR 2021-10-28 06:12:45 Doctor Unassigned, No [facility] [place] DIAGNOSIS AND Name Medical Branch TREATMENT NOTICE OF PRIVACY 2021-08-10 20:22:03 Doctor Unassigned, No Univ [facility] [place] PRACTICES Name Medical Branch CONSENT/REFUSAL FOR 2021-08-10 20:20:00 Doctor Unassigned, No [facility] [place] DIAGNOSIS AND Name Medical Branch TREATMENT OR INJECTION AA&/STRD 2021-04-26 02:11:49 [facility] Medical Br anch BRANCH POCT TEST 2021-04-26 01:11:00 Chris Rodriguez [facility] Medical Branch NOTICE OF PRIVACY 2021-04-26 00:35:44 Doctor Unassigned, No Univ [facility] [place] PRACTICES Name Medical Branch CONSENT/REFUSAL FOR 2021-04-26 00:35:26 Doctor Unassigned, No [facility] [place] DIAGNOSIS AND Name Medical Branch TREATMENT POCT TEST 2021-04-15 04:16:00 Sarah Joel [facility] NOTICE OF PRIVACY 2021-04-15 03:49:11 Doctor [facility]assigned, No [facility] CONSENT/REFUSAL FOR 2021-04-15 03:42:10 Doctor Unassigned, No [facility] [place] DIAGNOSIS AND Name Medical Branch TREATMENT TEST, SERUM 2020-05-09 06:50:00 Faby Stone [facility] HB ABO GROUPING 2020-05-09 06:50:00 Faby Stone [facility] BASIC METABOLIC PANEL 2020-05-09 06:39:00 Faby Stone [facility] (NA, K, CL, CO2, Medical Branch GLUCOSE, BUN, CREATININE, CA) CBC WITH DIFF 2020-05-09 06:39:00 [facility] URINALYSIS 2020-05-09 06:39:00 Faby Stone [facility] POCT TEST 2020-05-09 06:31:00 Faby Stone [facility] NOTICE OF PRIVACY 2020-05-09 06:12:27 Doctor Unassigned, No Univ ersity [facility] Name Medical Branch CONSENT/REFUSAL FOR 2020-05-09 06:09:51 [...] 06:09:45 Doctor Unassigned, No [facility] [place] DIAGNOSIS AND Name Medical Branch TREATMENT CONSENT/REFUSAL FOR 2020-05-09 06:09:44 Doctor Unassigned, No [facility] [place] [facility] AND Name Medical Branch TREATMENT COVID-19 (ID NOW RAPID 2019-10-01 23:52:00 Braydon Lee [facility] TESTING) Medical Branch CONSENT/REFUSAL FOR 2019-10-01 22:35:59 Doctor Unassigned, No [facility] Name Medical Branch TREATMENT URINALYSIS 2018-12-30 21:08:00 Myrna Myers [facility] POCT TEST 2018-12-30 21:08:00 Myrna Myers [facility] NOTICE OF PRIVACY 2018-12-30 19:33:39 Doctor Unassigned, No Univ [facility] PRACTICES Name Medical Branch Encounters Start End Encounter Admission Attending Care Care Encounter Source Date/Time Date/Time Type Type Clinicians Facility Department ID 2022-03-28 Outpatient Vizcarra, STLMLC STLC [id number] Common 10:06:03 Guy [facility] 2022-03-25 Outpatient Vizcarra, STLMLC STLC [id number] Common 10:29:00 Guy [facility] 2022-03-24 Outpatient Vizcarra, STLMLC STLC [id number] Common 11:51:02 Guy [facility] 2022-02-27 Outpatient Vizcarra, STLMLC STLC [id number] Common 10:44:05 Guy [facility] 2022-02-02 Outpatient Vizcarra, STLMLC STLC [id number] Common 10:37:04 Guy [facility] 2022-01-16 Outpatient Vizcarra, STLMLC STLC [id number] Common 09:19:02 Guy [facility] 2021-12-21 Outpatient Vizcarra, STLMLC STLC [id number] Common 10:09:03 Guy [facility] 2022-03-23 2022-03-24 Emergency X VIKTOR, [facility] ERT [id number] Univers 22:30:00 00:21:00 WALI pereira [facility] 2022-03-23 2022-03-24 Emergency Vincpeggy, [facility] [id number] Univers 22:30:00 00:21:00 Wali CALIX [id number] i ty of ASAF [id number] [facility] [id number] [place] [address] Branch 2022-03-23 2022-03-23 (TEL) STLMLC STLMLC [id number] Co mmon 00:00:00 00:00:00 [facility] 2022-02-28 2022-02-28 PREV VISIT STLMLC STLMLC [id number] Common 00:00:00 00:00:00 EST AGE [facility] 18-39 - [facility] 2022-02-24 2022-02-24 (TEL) STLMLC STLMLC [id number] Co mmon 00:00:00 00:00:00 [facility] 2022-01-30 2022-01-30 (TEL) STLMLC STLMLC [id number] Co mmon 00:00:00 00:00:00 [facility] 2022-01-27 2022-01-27 (TEL) STLMLC STLMLC [id number] Co mmon 00:00:00 00:00:00 [facility] 2022-01-26 2022-01-26 Emergency X AUFDERHEIDE [facility] ERT [id number] Univers 00:38:00 01:14:00 , LUZ MARINA pereira [facility] 2022-01-26 2022-01-26 Emergency Aufderide [facility] [id number] Univers 00:38:00 01:14:00 , Luz Marina CALIX [id number] i ty of [place]it[place] ASAF [id number] [facility] [id number] [place] [address] Branch 2022-01-18 2022-01-18 OFFICE STLMLC STLMLC [id number] Co mmon 00:00:00 00:00:00 VISIT EST Spir it PT LEVEL 3 - [facility] 2022-01-11 2022-01-11 (TEL) STLMLC STLMLC [id number] Co mmon 00:00:00 00:00:00 [facility] 2022-01-05 2022-01-05 (TEL) STLMLC STLMLC [id number] Co mmon 00:00:00 00:00:00 [facility] 2021-12-22 2021-12-22 (TEL) STLMLC STLMLC [id number] Co mmon 00:00:00 00:00:00 [facility] 2021-12-21 2021-12-21 OFFICE STLMLC STLMLC [id number] Co mmon 00:00:00 00:00:00 VISIT [facility] PT LEVEL 3 [facility] 2021-10-28 2021-10-28 Emergency X [facility] ERT [id number] Univers 01:33:00 02:01:00 JARED pereira [facility] 2021-10-28 2021-10-28 Emergency [facility] [id number] Univers 01:33:00 02:01:00 Jared Amanda VELEZANUSHKA [id number] itarian [facility] [id number] [facility] [id number] [address] 2021-08-10 2021-08-10 Emergency X ESPINOUNM [facility] ERT [id number] Univers 15:29:00 16:34:00 OFELIA pereira [facility] 2021-08-10 2021-08-10 Emergency [facility] [id number] Univers 15:29:00 16:34:00 Ofelia VELEZANUSHKA [id number] i ty [facility] [id number] [facility] [id number] [address] 2021-04-25 2021-04-25 [facility] [id number] Univers 18:47:00 20:45:00 CHRIS pereira [facility] 2021-04-25 2021-04-25 Emergency Jennifer, [facility] [id number] Univers 18:47:00 20:45:00 Chris VELEZANUSHKA [id number] i ty [facility] 4.2.7.2.6 [facility] [id number] [address] 2021-04-14 2021-04-14 Emergency [facility] [id number] Univers 22:04:00 23:00:00 Sarah VELEZANUSHKA [id number] ity of [facility] 4.2.7.2.6 [facility] [id number] [address] 2021-04-14 2021-04-14 Emergency X [facility] ERT [id number] Univers 22:04:00 23:00:00 SARAH kelli [facility] 2020-05-09 2020-05-09 Emergency [facility] [id number] Univers 00:11:00 03:03:00 Faby Velezton [id number] i ty of [place] 4.2.7.2.6 [facility] [id number] [address] 2020-05-09 2020-05-09 Emergency [facility] [id number] 00:11:00 03:03:00 Faby Calix [id number] [place] [address] [place] [address] [id number] [facility] 2020-05-09 2020-05-09 Emergency X CHASE [facility] ERT [id number] Univers 00:11:00 00:11:00 FABY itarian [facility] 2019-10-01 2019-10-01 Emergency Braydon Lee [facility] [id number] Univers 17:49:15 20:06:00 Pat Calix [id number] i ty of [place] 4.2.7.2.6 [facility] [id number] [address] 2019-10-01 2019-10-01 Emergency Braydon Lee [facility] [id number] 17:49:15 20:06:00 Pat Calix [id number] [place] [id number] [place] [id number] 2019-10-01 2019-10-01 Emergency X [facility] ERT [id number] Univers 17:36:00 17:36:00 ity of [facility] 2018-12-30 2018-12-30 Emergency [facility] [id number] [facility] 14:58:03 17:46:00 Myrna Calix [id number] i ty of [place] [id number] [facility] [id number] [address] 2018-12-30 2018-12-30 Emergency [facility] [id number] 14:58:03 17:46:00 Myrna Calix [id number] [place] [id number] [place] [id number] Results Test Description Test Time Test Comments Results Result Comments Source POCT TEST 2022-03-24 05:17:00 Test Item Value Reference Range Interpretation Comme nts POCT PREG (test code = 1605) negative On board controls acceptable with C Line (test code = 3574) positiv e POCT PREG LOT # (test code = 3575) [id number] POCT PREG TEST DATE (test code = 3576) 07/15/2023 Lab Interpretation (test code = 52952-4) Normal [facility] [id number] 01:11:00 Test Item Value Reference Range Interpretation Comments POCT PREG (test code = 1605) negative On board controls acceptable with present C Line (test code = 3574) POCT PREG LOT # (test code = 3575) [id number] POCT PREG TEST DATE (test 06/13/2022 code = 3576) Lab Interpretation (test code = Normal 50928-3) [facility] [id number] 04:16:00 Test Item Value Reference Range Interpretation Comments POCT PREG (test code = 1605) neg On board controls acceptable with yes C Line (test code = 3574) POCT PREG LOT # (test code = 3575) [id number] POCT PREG TEST DATE (test 06/13/2022 code = 3576) Lab Interpretation (test code = Normal 76869-3) [facility], [id number] 07:35:00 Test Item Value Reference Range Interpretation Comments PREG SERUM (test code Negative = 9589924161) AL (test code = AL) Less than 10 IU/L. ?If low titer or ectopic is suspected, resubmit specimen in 48-72 hours. [facility] and Screen - ONCE [id number] 07:34:36 Test Item Value Reference Range Interpretation Comments ABO & RH (test code O Positive Performe d at [facility] = 20) Laboratory Serv [facility] [place], [place] [address]Toll Free: [phone] A No. [id number] IAT (test code = Negative Performed a t [facility] 1185) Laboratory [facility] [place], [place] [address]Toll Free: [phone] A No. [id number] [facility]2021-01-24 07:28:00 Test Item Value Reference Range Interpretation Comments APPEARANCE (test code = Clear Clear 8816689749) COLOR (test code = Red Yellow A 8670752497) PH (test code = 4.8-8.0 0022714036) SP GRAVITY (test code = 1.003-1.030 L 1632043288) GLU U QUAL (test code = Normal Normal 9184613086) BLOOD (test code = 3+ Negative A 3537828999) KETONES (test code = Negative Negative 9146151870) PROTEIN (test code = 30 mg/dL Negative A 2887-8) UROBILIN (test code = Normal Normal 1308606754) BILIRUBIN (test code = Negative Negative 8309465501) NITRITE (test code = Negative Negative 3641130470) LEUK RANJANA (test code = 25/uL Negative A 0967530235) RBC/HPF (test code = See_Comment H [Autom ated message] 9987128068) The system [employer] generated this result transmitted ref erence range: 0 - 3 HP F. The reference range was not used to int erpret this result as normal/abnormal . WBC/HPF (test code = See_Comment H [Autom ated message] 6791700683) The system [employer] generated this result transmitted ref erence range: 0 - 5 HP F. The reference range was not used to int erpret this result as normal/abnormal . BACTERIA (test code = Few Negative A 4366031195) SQ EPITH (test code = <1 HPF 8649920252) Lab Interpretation (test Abnormal code = 47052-0) [facility] METABOLIC PANEL (NA, K, CL, CO2, GLUCOSE, BUN, CREATININE, CA)2020-05-09 07:11:00 Test Item Value Reference Range Interpretation Comments NA (test code = 138 mmol/L 135-145 7117539852) K (test code = 3.7 mmol/L 3.5-5 1094585003) CL (test code = 105 mmol/L 98-108 5950588752) CO2 TOTAL (test code = 23 mmol/L 23-31 6419044477) AGAP (test code = 2-16 1880931013) BUN (test code = 14 mg/dL 7-23 4770645601) GLUCOSE (test code = 101 mg/dL 70-110 2815276195) CREATININE (test code 0.61 mg/dL 0.5-1.04 = 3665489194) CALCIUM (test code = 9.2 mg/dL 8.6-10.6 4371360293) eGFR Calculation mL/min/1.73m2 (Non-) (test code = 4738934533) eGFR Calculation mL/min/1.73m2 () (test code = 1584455535) AL (test code = AL) Association of [...] or urine or abnormalities in imaging tests). [facility] WITH [id number] 06:47:00 Test Item Value Reference Range Interpretation Comments WBC (test code = See_Comment [Automated 8890-2) message] The sy stem which generated this result transmitted reference range : 4.30 - 11.10 10*3/?L. The reference range was not used to interpret this result as normal/abnormal . RBC (test code = See_Comment L [Automated 789-8) message] The sy stem which generated this [...] RDW-SD (test code = 46.9 fL 39-49.9 73027-6) RDW-CV (test code = 16.3 % 12-15.5 H 788-0) PLT (test code = See_Comment [Automated 777-3) message] The sy stem which generated this result transmitted reference range : 166 - 358 10*3/ ?L. The reference r duane was not used to interpret this result as normal/abnormal . MPV (test code = 10.7 fL 9.5-12.9 58062-8) NRBC/100 WBC (test See_Comment [Automat ed code = 3218005289) message] The system which generated this result transmitted reference range : 0.0 - 10.0 /100 WBCs. The refer ence range was not u sed to interpret th is result as normal/abnormal . NRBC x10^3 (test code <0.01 See_Comment [Auto mated = 0145392606) message] The s ystem which generated this result transmitted reference range : 10*3/?L. The reference range was not used to interpret this result as normal/abnormal . GRAN MAT (NEUT) % 56.2 % (test code = 770-8) IMM GRAN % (test code 0.00 % = 6874112260) LYMPH % (test code = 33.9 % 736-9) MONO % (test code = 6.9 % 5905-5) EOS % (test code = 2.4 % 713-8) BASO % (test code = 0.6 % 706-2) GRAN MAT x10^3(ANC) 2.62 10*3/uL 1.88-7.09 (test code = 9489531870) IMM GRAN x10^3 (test <0.03 0-0.06 code = 5436629781) LYMPH x10^3 (test code 1.58 10*3/uL 1.32-3.29 = 731-0) MONO x10^3 (test code 0.32 10*3/uL 0.33-0.92 L = 742-7) EOS x10^3 (test code = 0.11 10*3/uL 0.03-0.39 711-2) BASO x10^3 (test code 0.03 10*3/uL 0.01-0.07 = 704-7) Lab Interpretation Abnormal (test code = 15364-7) [facility] [id number] 06:31:00 Test Item Value Reference Range Interpretation Comments POCT PREG (test code = 1605) negative On board controls acceptable with positive C Line (test code = 3574) POCT PREG LOT # (test code = 3575) [id number] POCT PREG TEST DATE (test 02/12/2021 code = 3576) Lab Interpretation (test code = Normal 16513-1) [facility]2019-10-02 00:40:00 Test Item Value Reference Range Interpretation Comments SARS-CoV-2 Rapid ID NOW Positive Not Detected A (test code = 66082-1) AL (test code = AL) ID NOW COVID-19 Assay is an isothermal nucleic acid amplification test intended for the qualitative detection of nucleic acid from SARS-CoV-2 viral RNA in nasopharyngeal (RESEARCH ADMINISTRATOR) specimens. It is used under Emergency Use [...] indicated. Lab Interpretation Abnormal (test code = 62393-6) [facility] Test Item Value Reference Range Interpretation Comments APPEARANCE (test code = Clear Clear 8362786998) COLOR (test code = Straw Yellow A 4855329990) PH (test code = 4.8-8.0 9400998383) SP GRAVITY (test code = 1.003-1.030 4086440988) GLU U QUAL (test code = Normal Normal 8955190474) BLOOD (test code = Negative Negative 5163429632) KETONES (test code = Negative Negative 1553134982) PROTEIN (test code = Negative Negative 2887-8) UROBILIN (test code = Normal Normal 1810288644) BILIRUBIN (test code = Negative Negative 1819736429) NITRITE (test code = Negative Negative 7797336753) LEUK RANJANA (test code = 25/uL Negative A 8543089597) RBC/HPF (test code = See_Comment [Autom ated message] 4362675404) The system [employer] generated this result transmitted ref erence range: 0 - 3 HP F. The reference range was not used to int erpret this result as normal/abnormal . WBC/HPF (test code = See_Comment [Autom ated message] 6398821651) The system [employer] generated this result transmitted ref erence range: 0 - 5 HP F. The reference range was not used to int erpret this result as normal/abnormal . BACTERIA (test code = Negative Negative 6628288504) SQ EPITH (test code = HPF 6684157661) Lab Interpretation (test Abnormal code = 68626-4) [id number] 21:08:00 Test Item Value Reference Range Interpretation Comments POCT PREG (test code = 1605) negative On board controls acceptable with present C Line (test code = 3574) POCT PREG LOT # (test code = 3575) [id number] POCT PREG TEST DATE (test 04-15-2020 code = 3576) Lab Interpretation (test code = Normal 84152-0) [facility]"
[2022-05-08 20:12] LABS: Absolute Lymphocytes (CBC) 1.1 K/uL (0.7-4.9); Hematocrit 16.5 % (36.0-45.0); Lymphocytes % 28.5 % (15.3-44.8); MCV 64.4 fL (80-100); MPV 7.8 fL (7.6-11.3); RBC Red Blood Cell Count 2.57 M/uL (3.86-4.86)
[2022-05-08 20:23] LABS: Potassium 3.7 mmol/L (3.5-5.1)
[2022-05-08] MEDS ORDERED: NA CHLORIDE 0.9% 500 ML ONE (20:34)
--- NOTE | 2022-05-08 20:47 | EDPHYS ---
Physician Documentation [facility] Name: Joyce Mera Age: 36 yrs Sex: Female : 1985 Arrival Date: 05/08/2022 Time: 18:37 Bed 27 Private MD: ED Physician Aman Frazier HPI: 05/08 18:43 This 36 yrs old Female presents to ER via Unassigned with complaints of Abnormal Lab ms3 Results. 18:43 36-year-old female with past medical history of anemia and hypertension presents for ms3 anemia. Patient states she was called by her physician, Dr. Vizcarra, and informed her hemoglobin was 5.7. She was told she needed to come to the emergency department for a blood transfusion. Patient states she has had multiple blood transfusions in the past due to her heavy periods. Patient denies pain at this time. Patient endorses fatigue and shortness of breath.. 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 - Social history:: Smoking status: Patient denies any tobacco usage or history of. ROS: 18:43 Constitutional: Negative for fever, and chills. Cardiovascular: Negative for chest ms3 pain, and palpitations. 18:43 Abdomen/GI: Negative for abdominal pain, nausea, vomiting, diarrhea, and constipation, MS/Extremity: Negative for injury and deformity, Skin: Negative for injury, rash, and discoloration, Neuro: Negative for headache, weakness, numbness, tingling. 18:43 Constitutional: Positive for fatigue. 18:43 Respiratory: Positive for shortness of breath. Exam: 18:43 Constitutional: This is a well developed, well nourished patient who is awake, alert, ms3 and in no acute distress. Head/Face: Normocephalic, atraumatic. Neck: Trachea midline, no cervical lymphadenopathy. Supple, full range of motion without nuchal rigidity, or vertebral point tenderness. No Meningismus. Chest/axilla: Normal chest wall appearance and motion. Nontender with no deformity. 18:43 Respiratory: Lungs have equal breath sounds bilaterally, clear to auscultation and percussion. No rales, rhonchi or wheezes noted. No increased work of breathing, no retractions or nasal flaring. Abdomen/GI: Soft, non-tender, with normal bowel sounds. No distension or tympany. No guarding or rebound. No evidence of tenderness throughout. Skin: Warm, dry with normal turgor. Normal color with no rashes, no lesions, and no evidence of cellulitis. MS/ Extremity: Pulses equal, no cyanosis. Neurovascular intact. Full, normal range of motion. 18:43 Cardiovascular: Rate: normal, Rhythm: regular, Pulses: no pulse deficits are appreciated, Heart sounds: murmur, systolic. Vital Signs: 20:21 BP 142 / 87; Pulse 79; Resp 18; Temp 98.3(O); Pulse Ox 100% on R/A; Weight 82.55 kg; mb9 Height 5 ft. 4 in. (162.56 cm); Pain 7/10; 05/09 03:41 BP 153 / 91; Pulse 89; Resp 16 S; Temp 98.2; Pulse Ox 99% on R/A; bb 03:41 bb 05/08 20:21 Body Mass Index 31.24 (82.55 kg, 162.56 cm) mb9 03:41 see blood transfusion flow sheets for vital signs bb MDM: 05/08 18:43 Patient medically screened. ms3 18:43 Differential Diagnosis Anemia vs lab error vs DUB. Data reviewed: vital signs, nurses ms3 notes. 19:03 Transition of care: After a detail discussion of the patient's case, care is ms3 transferred to Aman Frazier MD. 20:45 Counseling: I had a detailed discussion with the patient and/or guardian regarding: the rn historical points, exam findings, and any diagnostic results supporting the discharge/admit diagnosis, lab results, the need for further work-up and treatment in the hospital. Response to treatment: There is no appreciated change of the patient's symptoms at this time, and as a result, I will admit patient. ED course: Pt with hemoglobin < 5, symptomatic, if only 1 or 2 units would transfuse here, will admit to hospitalist service for likely 3 unit transfusion and post h/h. . 22:59 Consideration of Admission/Observation Escalation of care including quality intern/observation considered. Patient refused admission, cites is single mom and has 3 kids with her. She does not want 3 units given, wants 2 and then to go home. . Refusal of service: The patient/guardian displays adequate decision making capability and despite a detailed discussion of alternatives, benefits, risks, and consequences refuses: Admission to the hospital for further work-up and treatment. 05/08 18:43 Order name: CBC with Diff ms3 05/08 18:43 Order name: BMP; Complete Time: 20:54 ms3 05/08 18:43 Order name: Type And Screen ms3 05/08 21:35 Order name: Packed RBCs (Additional Unit) EDAK 05/08 23:03 Order name: CBC Smear Scan EDAK 05/08 20:15 Order name: IV Saline Lock; Complete Time: 20:21 mb9 Administered Medications: 23:05 Drug: Tylenol 650 mg Route: PO; bb 05/09 03:42 Follow up: Response: No adverse reaction bb Disposition Summary: 05/09/22 02:54 Discharge Ordered Location: Home(05/09/22 02:54) rn Problem: new(05/09/22 02:54) rn Symptoms: have improved(05/09/22 02:54) rn Condition: Stable(05/09/22 02:54) rn Diagnosis - Anemia, unspecified(05/09/22 02:54) rn Followup: rn - With: Private Physician - When: As needed - Reason: Recheck today's complaints, Re-evaluation by your physician Discharge Instructions: - Discharge Summary Sheet rn - Anemia rn - Blood Transfusion, Adult rn - Blood Transfusion, Adult, Care After, [id number] rn Forms: - Medication Reconciliation Form rn - Thank You Letter rn - Antibiotic aprn - Prescription Opioid Use rn Signatures: Dispatcher [employer] EDMS Kamilah Melendez, RN RN Aman Powell MD MD rn Garcia, Cindy RN RN Bayron Berger DO DO ms3 Marguerite Baeza PA-C PA-C al4 Dalila Boothe, RN RN mb9 Corrections: (The following items were deleted from the chart) 05/08 22:49 20:46 Telemetry/MedSurg (observation) rn cg 22:49 20:46 rn cg 22:49 22:49 cg cg :00 20:46 Observation rn rn : 20:46 So Paiz rn rn : 20:46 Stable rn rn : 20:46 new rn rn : 20:46 have improved rn rn : 20:46 Standard rn rn : 20:46 Anemia, unspecified rn rn : 20:46 Abnormal uterine and vaginal bleeding, unspecified rn rn : 22:49 [facility] ER HOLD cg rn : 22:49 ERHOLD- cg rn
--- NOTE | 2022-05-08 20:47 | ER ---
Nurse's Notes [facility] Name: Joyce Mera Age: 36 yrs Sex: Female : 1985 Arrival Date: 05/08/2022 Time: 18:37 Bed 27 Private MD: Diagnosis: Anemia, unspecified Presentation: 05/08 20:21 Chief complaint: Patient states: "I was really short of breath at work today and became mb9 dizzy. I have a headache right now and was told by Dr. Vizcarra to come get a blood transfusion because my hemoglobin was low". Coronavirus screen: Vaccine status: Patient reports being unvaccinated. Ebola Screen: No symptoms or risks identified at this time. Initial Sepsis Screen: Does the patient meet any 2 criteria? No. Patient's initial sepsis screen is negative. Does the patient have a suspected source of infection? No. Patient's initial sepsis screen is negative. Risk Assessment: Do you want to hurt yourself or someone else? Patient reports no desire to harm self or others. Onset of symptoms was May 08, 2022. 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 - Social history:: Smoking status: Patient denies any tobacco usage or history of. Screenin:23 [facility] ED Fall Risk Assessment (Adult) History of falling in the last 3 months, mb9 including since admission No falls in past 3 months (0 pts) Confusion or Disorientation No (0 pts) Intoxicated or Sedated No (0 pts) Impaired Gait No (0 pts) Mobility Assist Device Used No (0 pt) Altered Elimination No (0 pt) Score/Fall Risk Level 0 - 2 = Low Risk Oriented to surroundings, Maintained a safe environment, Educated pt \\T\\ family on fall prevention, incl call for assistance when getting out of bed. Abuse screen: Denies threats or abuse. Nutritional screening: No deficits noted. Tuberculosis screening: No symptoms or risk factors identified. Assessment: 20:00 Reassessment: pt brought back to ER room 10. mb9 20:24 General: Appears comfortable, Behavior is calm, cooperative, appropriate for age. Pain: mb9 Complains of pain in head Pain does not radiate. Pain currently is 7 out of 10 on a pain scale. Quality of pain is described as throbbing, Pain began suddenly. Neuro: Ybarra Agitation-Sedation Scale (RASS): 0 - Alert and Calm Level of Consciousness is awake, alert, obeys commands, Oriented to person, place, time, situation, Appropriate for age Reports dizziness, headache. Cardiovascular: Heart tones S1 S2 present Capillary refill < 3 seconds is brisk. Respiratory: Airway is patent Respiratory effort is even, unlabored, Respiratory pattern is regular, symmetrical, Breath sounds are clear bilaterally. GI: Abdomen is flat, non-distended, Bowel sounds present X 4 quads. Abd is soft and non tender X 4 quads. : Urine is clear. EENT: No signs and/or symptoms were reported regarding the EENT system. Derm: Skin is intact, Skin is dry, Skin is pale, Skin temperature is cool. Musculoskeletal: Range of motion: intact in all extremities. 20:43 Reassessment: Consent form for PRBCs signed by pt. mb9 22:43 Reassessment: Patient is alert, oriented x 3, equal unlabored respirations, skin bb warm/dry/pink. pt resting quietly blood checked by James RN and this RN at bedside. See blood transfusion flow sheet for further vital signs. 23:01 Reassessment: pt refused admission will receive transfusion and be discharged. bb 05/09 03:39 Reassessment: pt sleeping, eyes closed, resp unlabored, IV site with no erythema or bb edema noted pt aroused easily and verbalized understanding of and agrees to plan of care discharge instructions given pt ambulated with steady gait to exit accompanied by family. Vital Signs: 05/08 20:21 BP 142 / 87; Pulse 79; Resp 18; Temp 98.3(O); Pulse Ox 100% on R/A; Weight 82.55 kg; mb9 Height 5 ft. 4 in. (162.56 cm); Pain 7/10; 05/09 03:41 BP 153 / 91; Pulse 89; Resp 16 S; Temp 98.2; Pulse Ox 99% on R/A; bb 03:41 bb 05/08 20:21 Body Mass Index 31.24 (82.55 kg, 162.56 cm) mb9 03:41 see blood transfusion flow sheets for vital signs bb ED Course: 05/08 18:37 Patient arrived in ED. rg4 18:37 Arm band placed on. mb9 18:39 Bayron Siddiqi DO is Attending Physician. ms3 18:57 Attending Physician role handed off by Bayron Siddiqi DO rn 18:57 Aman Frazier MD is Attending Physician. rn 18:58 Aman Frazier MD is Attending Physician. rn 19:30 Dalila Boothe RN is Primary Nurse. mb9 20:01 Inserted saline lock: 20 gauge in right antecubital area, using aseptic technique. zm Blood collected. 20:02 CBC with Diff Sent. zm 20:02 BMP Sent. zm 20:02 Type And Screen Sent. 20:23 Triage completed. mb9 20:26 No provider procedures requiring assistance completed. mb9 20:26 Placed in gown. Bed in low position. Call light in reach. Side rails up X 1. Client mb9 placed on continuous cardiac and pulse oximetry monitoring. NIBP monitoring applied. Door closed. Noise minimized. Warm blanket given. 20:46 So Paiz MD is Hospitalizing Provider. rn 05/09 03:41 IV discontinued, intact, bleeding controlled, No redness/swelling at site. Pressure bb dressing applied. Administered Medications: 05/08 23:05 Drug: Tylenol 650 mg Route: PO; bb 05/09 03:42 Follow up: Response: No adverse reaction bb Medication: 05/08 20:25 VIS not applicable for this client. mb9 Outcome: 20:46 Decision to Hospitalize by Provider. rn 05/09 02:54 Discharge ordered by . rn 03:41 Discharged to home ambulatory, with family. bb 03:41 Condition: stable 03:41 Discharge instructions given to patient, Instructed on discharge instructions, follow up and referral plans. Demonstrated understanding of instructions, follow-up care. 03:43 Patient left the ED. bb Signatures: Kamilah Melendez RN RN bb Nieto, Roman, MD MD rn Garcia, Rubi rg4 Bayron Siddiqi DO DO msBrandee Varela, Alexandra, RN RN mb9
[2022-05-08] MEDS ORDERED: NA CHLORIDE 0.9% 250 ML ONE (22:33)
[2022-05-08] MEDS ORDERED: ACETAMINOPHEN 325 MG TABLET ONE (23:01)
[2022-05-08 23:54] LABS: Anisocytosis 1+; Blood Morphology Comment NOTED (NOT SEEN); Platelet Estimate ADEQ; Polychromasia 1+; White Blood Cell Scan OK (OK)
[2022-05-09] MEDS ORDERED: NA CHLORIDE 0.9% 250 ML ONE (01:05)
[2022-05-09 04:37] VITALS: BP 153/91; TEMP 98.2; O2SAT 99
== END 2022-05-09 03:43 | disposition home or self-care (01) ==
LOC: ER 18:34
PROC: 30233N1 Transfusion of Nonautologous Red Blood Cells into Peripheral Vein, Percutaneous Approach (ICD-10-PCS; principal; 2022-05-09)
DX: D64.9 Anemia, unspecified (principal); I10 Essential (primary) hypertension
CPT/HCPCS: 85025; 80048; 36415; 86900; 86850; 86901; 36430; P9016 ×2; J7050 ×2; J7040

== ENCOUNTER 2022-05-26 17:59 | Emergency (ER) | payer OTHER ==
--- OUTSIDE RECORDS SUMMARY | 2022-05-26 18:05 | XMS REPORT | Continuity of Care Document ---
:1985 Author Organization [facility] t Address [address] [place] [address] Care Team Providers Name Role Phone Guy Vizcarra Primary Care Physician Guy Vizcarra Attending Clinician Unavailable WALI CORNELL Attending Clinician Unavailable Wali Jacques Attending Clinician LUZ MARINA TAYLOR Attending Clinician Unavailable Luz Marina Taylor MD Attending Clinician [phone] JARED GALLEGOS Attending Clinician Unavailable Jared Gallegos [...] Number Effective Date Expiration Date Amanda rodgers [facility] [id number] 2020 CHOICE [place] STAR 00:00:00 Problems Condition Condition Condition Status Onset Resolution Last Treating Co mments Source Name Details Category Date Date Treatment Clinician Date Coffee Coffee Disease Active [facility] ground ground 08-18 [facility] emesis emesis [facility]:00: Medical 00 Center Acute Acute Disease Active Overview: [facility] blood loss blood loss 08-18 [facility] anemia anemia 00:00: g of this Medical 00 note Center might be different from the original. In [facility] for transfer to [facility] from [facility] to [place] for acute blood loss anemia with [...] ic instabili ty. Already received 2units at [facility] in [facility] for transfer. 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 loss Medical (chronic) Center Benign Benign Problem Common essential essential Spir it hypertensi hypertensi - CHI on on [facility] Menorrhagi Menorrhagi Problem C ommon a a Spirit - [facility] Chronic Chronic Problem Common fatigue fatigue Spirit syndrome - [facility] [id number] Other Problem Common obesity Spirit due to - CHI excess [facility] Abnormal Abnormal Problem Commo n uterine bleeding Spirit bleeding in - [facility] menstrual [facility] [id number] Acute pain Problem C ommon of right Spirit knee - [facility] Decreased Other Problem Common blood decreased Spirit leucocyte white - CHI number blood cell St (WBC) [facility] [id number] RLS Problem Common (restless Spirit legs - CHI syndrome) [facility] [id number] Neuropathy Problem Co mmon Spirit - CHI [facility] [id number] GERD Problem Common without Spirit esophagiti - CHI s [facility] [id number] Body mass Problem Com mon index [facility] [BMI] - CHI 34.0-34.9, [facility] [id number] Peripheral Problem Co mmon tear of Spirit medial - CHI meniscus St of right [facility] knee as Medical current Center injury, subsequent encounter No known No known Disease Unive rs active active ity of problems problems [facility] Allergies, Adverse Reactions, Alerts Allergy Allergy Status Severity Reaction(s) Onset Inactive Treating Comm ents Source Name Type Date Date Clinician NO KNOWN Drug Active Univers ALLERGIE Class ity of S [facility] Social History Social Habit Start Date Stop Date Quantity Comments Source History of Tobacco Common Spirit - CHI Use [facility] Center Exposure to 2022-03-13 2022-03-23 Not sure [facility] SARS-CoV-2 (event) 00:00:00 22:23[facility]00 [facility] Sex Ass[facility] At [birth year] [facility] Medical 00:00:00 00:00:00 Center Smoking Status Start Date Stop Date Source Never Smoker Common [facility] - [facility] Medications Ordered Filled Start Stop [...] 03/23/22 at 2315, TANVIR ibuprofen 2021-04 Yes [id number] 600mg Take 1 U nivers 600 mg 2- tablet by ity of tablet 00:00: mouth [place] 00 every 8 Medical (eight) Branch hours as needed for Pain (scale 4-6). gabapentin 2021-04 Yes [id number] 300mg Take 1 Univers 300 mg 2-09 capsule by ity of capsule 00:00: mouth 3 [place] 00 (three) Medical times Branch daily as needed for Pain (scale 7-10). methocarbam 2021-04 Yes [id number] 500mg Take 1 Univers oL 500 mg 2-08 tablet by ity o f tablet 00:00: mouth 3 [place] (three) Medical times Branch daily as needed for Pain (scale 7-10). ketorolac 2021-04- No 30mg 30 mg, Unive rs (TORADOL) 0-13 10-13 Intramuscu ity of injection 05:45: 05:56 lar, ONCE, [place] 30 mg 00 :00 1 dose, On Medical [place] Branch 01/26/22 at 0045, TANVIR cyclobenzap 2021-04 Yes [id number] 5mg Take 1 Univers rine 5 mg 0-13 tablet by ity o f tablet 00:00: mouth in [place] 00 the Medical morning Branch and 1 tablet at noon and 1 tablet in the evening. gabapentin 2021-04 Yes [id number] 300mg Take 1 Univers 300 mg 0-13 capsule by ity of capsule 00:00: mouth in [place] 00 the Medical morning Branch and 1 capsule at noon and 1 capsule in the evening. cyclobenzap 2021-04- No [id number] 5mg Take 1 Univers rine 5 mg 0-13 12-08 tablet by ity of tablet 00:00: 00:00 mouth in [place] 00 :00 the Medical morning Branch and 1 tablet at noon and 1 tablet in the evening. gabapentin 2021-04- No [id number] 300mg Take 1 Univers 300 mg 0-13 12-08 capsule by ity of capsule 00:00: 00:00 mouth in [place] 00 :00 the Medical morning Branch and [...] 10/28/21 at 0200, TANVIR gabapentin 2021-0 Yes [id number] 600mg Take 1 Univers 600 mg 7-15 07 tablet by ity of tablet 00:00: mouth in [place] [address] the morning Branch and 1 tablet in the evening. gabapentin 2021-0 Yes [id number] 600mg Take 1 Univers 600 mg 7-15 07 tablet by ity of tablet 00:00: mouth in [place] [address] the Branch and 1 tablet in the evening. gabapentin 2021-0 2021- No [id number] 600mg Take 1 Univers 600 mg 7-15 12-08 07 tablet by ity of tablet 00:00: 00:00 mouth in [place] 00 :00 the [facility] Branch and 1 tablet in the evening. methylPREDN 2021-0 Yes [id number] Take by [facility] ISolone 4-27 mouth ity of (MEDROL, 00:00: SEE-INSTRU [place] as TREASURE,) 4 mg 00 CTIONS. Medica l tablets follow Branch package directions methylPREDN Yes [id number] Take by Univers ISolone 08-10 mouth ity of (MEDROL, 00:00: SEE-INSTRU [place] as TREASURE,) 4 mg 00 CTIONS. Medica l tablets follow Branch package directions methylPREDN Yes [id number] Take by Univers ISolone 08-10 mouth ity of (MEDROL, 00:00: SEE-INSTRU [place] TREASURE,) 4 mg 00 CTIONS. Medica l tablets follow Branch package directions methylPREDN 2021- No [id number] Take by Univers ISolone 08-1008 mouth ity of (MEDROL, 00:00: 00:00 [place]INSTRU [place] TREASURE,) 4 mg 00 :00 CTIONS. Medica l tablets follow Branch package directions gabapentin 2021- No [id number] 300mg Take 1 Univers 300 mg 08-10 capsule by ity of capsule 00:00: 04:59 mouth 3 [place] 00 :00 (three) Medical times Branch daily for 10 days. methocarbam 2021- No [id number] 500mg Take 1 Univers oL 500 mg 08-1003 tablet by ity of tablet 00:00: 04:59 mouth 3 [place] 00 :00 (three) Medical times Branch daily [...] 04/14/21 at 2315, TANVIR amLODIPine 2020-04 Yes [id number] 2.5mg Take 1 Univers 2.5 mg 2-30 tablet by ity of tablet 00:00: mouth at [place] 00 bedtime. Medical Branch amLODIPine 2020-04 Yes [id number] 2.5mg Take 1 Univers 2.5 mg 2-30 tablet by ity of tablet 00:00: mouth at [place] [address] bedtime. Medical Branch amLODIPine 2020-04 Yes [id number] 2.5mg Take 1 Univers 2.5 mg 2-30 tablet by ity of tablet 00:00: mouth at [place] [address] bedtime. Medical Branch amLODIPine 2020-04 Yes [id number] 2.5mg Take 1 Univers 2.5 mg 2-30 tablet by ity of tablet 00:00: mouth at [place] [address] bedtime. Medical Branch amLODIPine 2020-04 Yes [id number] 2.5mg Take 1 Univers 2.5 mg 2-30 tablet by ity of tablet 00:00: mouth at [place] [address] bedtime. Medical Branch amLODIPine 2020-04 Yes [id number] 2.5mg Take 1 Univers 2.5 mg 2-30 tablet by ity of tablet 00:00: mouth at [place] [address] bedtime. Medical Branch gabapentin 2020-04- No [id number] 300mg Take 1 Univers 300 mg 2-30 01-30 capsule by ity of capsule 00:00: 05:59 mouth 3 [place] 00 :00 (three) Medical times Branch daily for 30 days. gabapentin 2020-04- No [id number] 300mg Take 1 Univers 300 mg 2-30 01-30 capsule by ity of capsule 00:00: 05:59 mouth 3 [place] 00 :00 (three) Medical times [place] daily for 30 days. Kenalog Kenalog 2020-04 No 40mg Common (Triamcinol (Triamcinol 2-07 S pirit one) one) 00:00: - CHI 00 [facility] Kenalog Kenalog 2020-04 No 40mg Common (Triamcinol (Triamcinol 2-07 S pirit one) one) 00:00: - CHI 00 [facility] Kenalog Kenalog 2020-04 No 40mg Common (Triamcinol (Triamcinol 2-07 S pirit one) one) 00:00: - CHI 00 [facility] Kenalog Kenalog 2020-04 No 40mg Common (Triamcinol (Triamcinol 2-07 S pirit one) one) 00:00: - CHI 00 [facility] Kenalog Kenalog 2020-04 No 40mg Common (Triamcinol (Triamcinol 2-07 S pirit one) one) 00:00: - CHI 00 [facility] Gladis Griffith 2020-04 No 40mg Common (Triamcinol (Triamcinol 2-07 S pirit one) one) 00:00: - CHI 00 [facility] Gladis Griffith 2020-04 No 40mg Common (Triamcinol (Triamcinol 2-07 S pirit one) one) 00:00: - CHI 00 [facility] Gladis Kensam 2020-04 No 40mg Common (Triamcinol (Triamcinol 2-07 S pirit one) one) 00:00: - CHI 00 [facility] Gladis Griffith 2020-04 No 40mg Common (Triamcinol (Triamcinol 2-07 S pirit one) one) 00:00: - CHI 00 [facility] Gladis Griffith 2020-04 No 40mg Common (Triamcinol (Triamcinol 2-07 S pirit one) one) 00:00: - CHI 00 [facility] Gladis Griffith 2020-04 No 40mg Common (Triamcinol (Triamcinol 2-07 S pirit one) one) 00:00: - CHI 00 [facility] Gladis Kensam 2020-04 No 40mg Common (Triamcinol (Triamcinol 2-07 S pirit one) one) 00:00: - CHI 00 [facility] Gladis Griffith 2020-04 No 40mg Common (Triamcinol (Triamcinol 2-07 S pirit one) one) 00:00: - CHI 00 [facility] Gladis Kensam 2020-04 No 40mg Common (Triamcinol (Triamcinol 2-07 S pirit one) one) 00:00: - CHI 00 [facility] Gladis Kensam 2020-04 No 40mg Common (Triamcinol (Triamcinol 2-07 S pirit one) one) 00:00: - CHI 00 [facility] Gladis Griffith 2020-04 No 40mg Common (Triamcinol (Triamcinol 2-07 S pirit one) one) 00:00: - CHI 00 [facility] naproxen 2020- No 500mg 500 mg, Univ ers (NAPROSYN) 1-24 01-24 Oral, ity of tablet 500 09:00: 07:59 ONCE, 1 [place] mg 00 :00 dose, [facility] 05/09/20 at Branch 0300, Routine NaCl 0.9% No 1000mL at 999 Uni vers (NS) bolus 24 -24 mL/hr, ity of infusion 08:00: 08:45 1,000 mL, [place] as 1,000 mL 00 :00 IV Medical Infusion, [place] ONCE, 1 dose, [place] 05/09/20 at 0200, STAT naproxen Yes [id number] 500mg Take 1 Univers (NAPROSYN) 1-24 100 tablet by ity of 500 mg 00:00: mouth 2 [place] tablet 00 (two) Medical times [place] daily with meals. norgestimat Yes [id number] 1{tbl} Take 1 Univers e-ethinyl 1-24 100 tablet by ity o f estradioL 00:00: mouth [place] 0.25-35 00 daily. Medical mg-mcg per Branch tablet naproxen Yes [id number] 500mg Take 1 Univers (NAPROSYN) 1-24 100 tablet by ity of 500 mg 00:00: mouth 2 [place] tablet 00 (two) Medical times [place] daily with meals. norgestimat Yes [id number] 1{tbl} Take 1 Univers e-ethinyl 1-24 100 tablet by ity o f estradioL 00:00: mouth [place] 0.25-35 00 daily. Medical mg-mcg per Branch tablet naproxen Yes [id number] 500mg Take 1 Univers (NAPROSYN) 1-24 100 tablet by ity of 500 mg 00:00: mouth 2 [place] tablet 00 (two) Medical times [place] daily with meals. norgestimat Yes [id number] 1{tbl} Take 1 Univers e-ethinyl 1-24 100 tablet by ity o f estradioL 00:00: mouth [place] 0.25-35 00 daily. Medical mg-mcg per Branch tablet naproxen Yes [id number] 500mg Take 1 Univers (NAPROSYN) 1-24 100 tablet by ity of 500 mg 00:00: mouth 2 [place] tablet 00 (two) Medical times [place] daily with meals. norgestimat Yes [id number] 1{tbl} Take 1 Univers e-ethinyl 1-24 100 tablet by ity o f estradioL 00:00: mouth [place] 0.25-35 00 daily. Medical mg-mcg per Branch tablet naproxen Yes [id number] 500mg Take 1 Univers (NAPROSYN) 1-24 100 tablet by ity of 500 mg 00:00: mouth 2 [place] tablet 00 (two) Medical times [place] daily with meals. norgestimat Yes [id number] 1{tbl} Take 1 Univers e-ethinyl 1-24 100 tablet by ity o f estradioL 00:00: mouth [place] 0.25-35 00 daily. Medical mg-mcg per Branch tablet naproxen Yes [id number] 500mg Take 1 Univers (NAPROSYN) 1-24 100 tablet by ity of 500 mg 00:00: mouth 2 [place] tablet 00 (two) Medical times [place] daily with meals. norgestimat Yes [id number] 1{tbl} Take 1 Univers e-ethinyl 1-24 100 tablet by ity o f estradioL 00:00: mouth [place] 0.25-35 00 daily. Medical mg-mcg per Branch tablet naproxen 2021- No [id number] 500mg Take 1 Univers (NAPROSYN) 1-24 12-08 100 tablet by ity of 500 mg 00:00: 00:00 mouth 2 [place] tablet 00 :00 (two) [facility] daily with meals. norgestimat 2021- No [id number] 1{tbl} Take 1 Univers e-ethinyl 1-24 12-08 100 tablet by ity of estradioL 00:00: 00:00 mouth [place] 0.25-35 00 :00 daily. Medical mg-mcg per Branch tablet hydrOXYzine 2020- No 25mg 25 mg, Uni vers (ATARAX) 10-01 Oral, ity of tablet 25 00:45: 23:43 ONCE, 1 [place] mg 00 :00 dose, Wed Medical 10/01/19 at Branch 1945, TANVIR famotidine 2020-0 2020- No 40mg 40 mg, Univ ers (PEPCID AC) 10-01-17 Oral, ity of tablet 40 00:30: 23:43 ONCE, 1 [place] mg 00 :00 dose, [facility] Medical 10/01/19 at Branch 1930, TANVIR methylpredn 2019-0 2020- No 125mg 125 mg, U nivers isolone sod 10-01 Intramuscu i ty of succ 00:30: 23:48 lar, ONCE, [place] (SOLU-MEDRO 00 :00 1 dose, Medic al L) [facility] Branch injection 10/01/19 at 125 mg 1929, STAT hydrOXYzine 2020-0 Yes [id number] 50mg Take 1 Univers (VISTARIL) 6-17 capsule by ity of 50 mg 00:00: mouth 3 [place] capsule 00 (three) Medical times [place] daily as needed for Itching. famotidine 2020-0 Yes [id number] 40mg Take 1 Univers (PEPCID) 40 6-17 tablet by ity of mg tablet 00:00: mouth [place] 00 daily. Medical Branch benzonatate 2020-0 Yes [id number] 100mg Take 1 Univers 100 mg 6-17 capsule by ity of capsule 00:00: mouth 3 [place] 00 (three) Medical times Branch daily as needed for Cough. hydrOXYzine 2020-0 Yes [id number] 50mg Take 1 Univers (VISTARIL) 6-17 capsule by ity of 50 mg 00:00: mouth 3 [place] capsule 00 (three) Medical times Branch daily as needed for Itching. famotidine 2020-0 Yes [id number] 40mg Take 1 Univers (PEPCID) 40 6-17 tablet by ity of mg tablet 00:00: mouth [place] 00 daily. Medical Branch benzonatate 2020-0 Yes [id number] 100mg Take 1 Univers 100 mg 6-17 capsule by ity of capsule 00:00: mouth 3 [place] 00 (three) Medical times [place] daily as needed for Cough. hydrOXYzine 2020-0 Yes [id number] 50mg Take 1 Univers (VISTARIL) 6-17 capsule by ity of 50 mg 00:00: mouth 3 [place] capsule 00 (three) Medical times Branch daily as needed for Itching. famotidine 2020-0 Yes [id number] 40mg Take 1 Univers (PEPCID) 40 6-17 tablet by ity of mg tablet 00:00: mouth [place] 00 daily. Medical Branch benzonatate 2020-0 Yes [id number] 100mg Take 1 Univers 100 mg 6-17 capsule by ity of capsule 00:00: mouth 3 [place] 00 (three) Medical times Branch daily as needed for Cough. hydrOXYzine 2020-0 Yes [id number] 50mg Take 1 Univers (VISTARIL) 6-17 capsule by ity of 50 mg 00:00: mouth 3 [place] capsule 00 (three) Medical times Branch daily as needed for Itching. famotidine 2020-0 Yes [id number] 40mg Take 1 Univers (PEPCID) 40 6-17 tablet by ity of mg tablet 00:00: mouth [place] 00 daily. Medical Branch benzonatate 2020-0 Yes [id number] 100mg Take 1 Univers 100 mg 6-17 capsule by ity of capsule 00:00: mouth 3 [place] 00 (three) Medical times Branch daily as needed for Cough. hydrOXYzine 2020-0 Yes [id number] 50mg Take 1 Univers (VISTARIL) 6-17 capsule by ity of 50 mg 00:00: mouth 3 [place] capsule 00 (three) Medical times Branch daily as needed for Itching. famotidine 2020-0 Yes [id number] 40mg Take 1 Univers (PEPCID) 40 6-17 tablet by ity of mg tablet 00:00: mouth [place] 00 daily. Medical Branch benzonatate 2020-0 Yes [id number] 100mg Take 1 Univers 100 mg 6-17 capsule by ity of capsule 00:00: mouth 3 [place] 00 (three) Medical times Branch daily as needed for Cough. famotidine 2020-0 Yes [id number] 40mg Take 1 Univers (PEPCID) 40 6-17 tablet by ity of mg tablet 00:00: mouth [place] 00 daily. Medical Branch hydrOXYzine 2020-0 Yes [id number] 50mg Take 1 Univers (VISTARIL) 6-17 capsule by ity of 50 mg 00:00: mouth 3 [place] capsule 00 (three) Medical times Branch daily as needed for Itching. famotidine 2020-0 Yes [id number] 40mg Take 1 Univers (PEPCID) 40 6-17 tablet by ity of mg tablet 00:00: mouth [place] 00 daily. Medical Branch benzonatate 2020-0 Yes [id number] 100mg Take 1 Univers 100 mg 6-17 capsule by ity of capsule 00:00: mouth 3 [place] 00 (three) Medical times Branch daily as needed for Cough. hydrOXYzine 2020-0 Yes [id number] 50mg Take 1 Univers (VISTARIL) 6-17 capsule by ity of 50 mg 00:00: mouth 3 [place] capsule 00 (three) Medical times Branch daily as needed for Itching. famotidine 2020-0 Yes [id number] 40mg Take 1 Univers (PEPCID) 40 6-17 tablet by ity of mg tablet 00:00: mouth [place] 00 daily. Medical Branch benzonatate 2020-0 Yes [id number] 100mg Take 1 Univers 100 mg 6-17 capsule by ity of capsule 00:00: mouth 3 [place] 00 (three) Medical times Branch daily as needed for Cough. hydrOXYzine 2019-2021- No [id number] 50mg Take 1 Univers (VISTARIL) 6-17 12-08 capsule by it y of 50 mg 00:00: 00:00 mouth 3 [place] capsule 00 :00 (three) Medical times Branch daily as needed for Itching. benzonatate 2019-0 2021- No [id number] 100mg Take 1 Univers 100 mg 6-17 [...] as needed for Pain (scale 7-10). traMADOL 2017-2021- No 50mg Take 1 Univer s (ULTRAM) 50 4-15 12-08 tablet by it y of mg tablet 00:00: 00:00 mouth [place] 00 :00 every 6 Medical (six) Branch hours as needed for Pain (scale 7-10). Urea 20 % Urea 20 % No [...] Besylate 5 Besylate 5 MG MG MG amLODIPine amLODIPine No QD amLODIPine Besylate 5 Besylate 5 Besylate 5 MG MG MG Urea 20 % Urea 20 % No 1{appli QD Urea 20 % cation_ as_need ed} hydroCHLORO hydroCHLORO No hydroCHLOR thiazide 25 thiazide [...] 600 MG 600 MG t} 600 MG Vital Signs Vital Name Observation Time Observation Value Comments Source Systolic blood 2022-03-24 06:11:54 157 mm[Hg] [facility] Diastolic blood 2022-03-24 06:11:54 109 mm[Hg] [facility] Heart rate 2022-03-24 06:11:54 71 /min [facility] Respiratory rate 2022-03-24 06:11:54 18 /min [facility] Oxygen saturation in 2022-03-24 06:11:54 100 /min [facility] Arterial blood by [facility] Pulse oximetry Branch Body temperature 2022-03-24 04:25:00 36.61 Jen [facility] Body height 2022-03-24 04:25:00 162.6 cm [facility] Body weight 2022-03-24 04:25:00 86.183 kg [facility] BMI 2022-03-24 04:25:00 32.61 kg/m2 Universi ty of [facility] height 2022-02-28 16:30:00 63 [in_i] Common [facility] weight 2022-02-28 16:30:00 187.0 [lb_av] [facility] temperature 2022-02-28 16:30:00 97.2 [degF] Common [facility] bmi 2022-02-28 16:30:00 33.12 kg/m2 [facility] oximetry 2022-02-28 16:30:00 98 % [facility] respiratory rate 2022-02-28 16:30:00 18 /min Comm on [facility] blood pressure 2022-02-28 16:30:00 134 mm[Hg] [facility] - systolic [facility] blood pressure 2022-02-28 16:30:00 64 mm[Hg] [facility] diastolic [facility] Systolic blood 2022-01-26 05:30:00 141 mm[Hg] Univer sity of pressure [facility] Diastolic blood 2022-01-26 05:30:00 96 mm[Hg] Unive rsity of pressure [facility] Heart rate 2022-01-26 05:30:00 91 /min Universi ty [facility] Body temperature 2022-01-26 05:30:00 36.78 Jen Univ ersity [facility] Respiratory rate 2022-01-26 05:30:00 18 /[facility] 2022-01-26 05:30:00 152.4 cm Universi ty [facility] Body weight 2022-01-26 05:30:00 86.183 kg Universi ty [facility] BMI 2022-01-26 05:30:00 37.11 [facility] Oxygen saturation in 2022-01-26 05:30:00 98 /min University Arterial blood by [facility] Pulse oximetry Branch height 2022-01-18 08:45:00 63 [in_i] Common [facility] weight 2022-01-18 08:45:00 192 [lb_av] Common [facility] temperature 2022-01-18 08:45:00 97.4 [degF] Common [facility] bmi 2022-01-18 08:45:00 34.01 kg/m2 Common [facility] blood pressure 2022-01-18 08:45:00 130 mm[Hg] [facility] - systolic [facility] blood pressure 2022-01-18 08:45:00 80 mm[Hg] [facility] - diastolic [facility] height 2021-12-21 10:00:00 63 [in_i] Common [facility] weight 2021-12-21 10:00:00 192 [lb_av] Common [facility] temperature 2021-12-21 10:00:00 97.8 [degF] Common [facility] bmi 2021-12-21 10:00:00 34.01 kg/m2 Common [facility] blood pressure 2021-12-21 10:00:00 128 mm[Hg] [facility] - systolic [facility] blood pressure 2021-12-21 10:00:00 78 mm[Hg] [facility] - diastolic [facility] Systolic blood 2021-10-28 06:27:00 174 mm[Hg] Univer sity of [facility] Diastolic blood 2021-10-28 06:27:00 119 mm[Hg] Unive rsity [facility] Heart rate 2021-10-28 06:27:00 88 /min Universi ty [facility] Body temperature 2021-10-28 06:27:00 36.28 [facility] 2021-10-28 06:27:00 16 /min [facility] Body height 2021-10-28 06:27:00 162.6 cm Universi ty [facility] Body weight 2021-10-28 06:27:00 [facility] 2021-10-28 06:27:00 35.77 kg/m2 Universi ty of [place] [facility] Oxygen saturation in 2021-10-28 06:27:00 98 /min University of Arterial blood by [place] [facility] ricardo Pulse oximetry Branch Systolic blood 2021-08-10 20:28:00 160 mm[Hg] Univer sity of pressure [place] [facility] Diastolic blood 2021-08-10 20:28:00 108 mm[Hg] Unive rsity of pressure [place] [facility] Heart rate 2021-08-10 20:28:00 73 /min Universi ty of [place] [facility] Body temperature 2021-08-10 20:28:00 36.61 Jen Univ ersity of [place] [facility] Respiratory rate 2021-08-10 20:28:00 17 /min Univ ersity of [place] [facility] Body height 2021-08-10 20:28:00 162.6 cm Universi ty of [place] [facility] Body weight 2021-08-10 20:28:00 88.905 kg Universi ty of [place] [facility] BMI 2021-08-10 20:28:00 33.64 kg/m2 Universi ty of [place] [facility] Oxygen saturation in 2021-08-10 20:28:00 100 /min University of Arterial blood by [place] [employer] ricardo Pulse oximetry Branch Systolic blood 2021-04-26 00:45:00 148 mm[Hg] Univer sity of pressure [place] [facility] Diastolic blood 2021-04-26 00:45:00 113 mm[Hg] Unive rsity of pressure [place] [facility] Heart rate 2021-04-26 00:45:00 92 /min Universi ty of [place] [facility] Body temperature 2021-04-26 00:45:00 36.11 Jen Univ [facility] Respiratory rate 2021-04-26 00:45:00 22 /min [facility] Body height 2021-04-26 00:45:00 162.6 cm [facility] Body weight 2021-04-26 00:45:00 90.719 kg [facility] BMI 2021-04-26 00:45:00 34.33 kg/m2 [facility] Oxygen saturation in 2021-04-26 00:45:00 100 /min [facility] blood by [employer] ricardo Pulse oximetry Branch Systolic blood 2021-04-15 04:01:00 149 mm[Hg] [facility] Diastolic blood 2021-04-15 04:01:00 105 mm[Hg] [facility] Heart rate 2021-04-15 04:01:00 89 /min [facility] Body temperature 2021-04-15 04:01:00 37.17 Jen [facility] Respiratory rate 2021-04-15 04:01:00 18 /min [facility] Body height 2021-04-15 04:01:00 162.6 cm [facility] Body weight 2021-04-15 04:01:00 90.719 kg [facility] BMI 2021-04-15 04:01:00 34.33 kg/m2 [facility] Oxygen saturation in 2021-04-15 04:01:00 100 /min [facility] blood by [place] [employer] ricardo Pulse [facility]xim[facility] Branch Systolic blood 2020-05-09 08:00:00 126 mm[Hg] [facility] Diastolic blood 2020-05-09 08:00:00 74 mm[Hg] [facility] Heart rate 2020-05-09 08:00:00 78 /min [facility] Respiratory rate 2020-05-09 08:00:00 18 /min [facility] Oxygen saturation in 2020-05-09 08:00:00 99 /min [facility] blood by [place] [employer] ricardo [facility] Body temperature 2020-05-09 06:23:00 36.5 Jen [facility] Body height 2020-05-09 06:16:00 162.6 cm [facility] Body weight 2020-05-09 06:16:00 88.451 kg [facility] BMI 2020-05-09 06:16:00 33.47 kg/m2 [facility] Systolic blood 2020-05-09 08:00:00 126 mm[Hg] [facility] Diastolic blood 2020-05-09 08:00:00 74 mm[Hg] [facility] Heart rate 2020-05-09 08:00:00 78 /min [facility] Respiratory rate 2020-05-09 08:00:00 18 /min [facility] Oxygen saturation in 2020-05-09 08:00:00 99 /min [facility] [place] [facility] Body temperature 2020-05-09 06:23:00 36.5 Jen [facility] Body height 2020-05-09 06:16:00 162.6 cm [facility] Body weight 2020-05-09 06:16:00 88.451 kg [facility] BMI 2020-05-09 06:16:00 33.47 kg/m2 [facility] Systolic blood 2019-10-01 22:46:00 172 mm[Hg] [facility] Diastolic blood 2019-10-01 22:46:00 88 mm[Hg] [facility] Heart rate 2019-10-01 22:46:00 100 /min [facility] Body temperature 2019-10-01 22:46:00 36.67 Jen [facility] Respiratory rate 2019-10-01 22:46:00 16 /min [facility] Body height 2019-10-01 22:46:00 160 cm [facility] Body weight 2019-10-01 22:46:00 88.451 kg [facility] BMI 2019-10-01 22:46:00 34.54 kg/m2 [facility] Oxygen saturation in 2019-10-01 22:46:00 100 /min [facility] Arterial blood by [facility] ricardo Pulse oximetry Branch Systolic blood 2019-10-01 22:46:00 172 mm[Hg] [facility] Diastolic blood 2019-10-01 22:46:00 88 mm[Hg] [facility] Heart rate 2019-10-01 22:46:00 100 /min [facility] Body temperature 2019-10-01 22:46:00 36.67 Jen [facility] Respiratory rate 2019-10-01 22:46:00 16 /min [facility] Body height 2019-10-01 22:46:00 160 cm [facility] Body weight 2019-10-01 22:46:00 88.451 kg [facility] BMI 2019-10-01 22:46:00 34.54 kg/m2 [facility] Oxygen saturation in 2019-10-01 22:46:00 100 /min [facility] [place] [facility] Diastolic blood 2018-12-30 19:59:00 107 mm[Hg] [facility] Heart rate 2018-12-30 19:59:00 85 /min [facility] Body temperature 2018-12-30 19:59:00 37 Jen [facility] Respiratory rate 2018-12-30 19:59:00 16 /min [facility] Body weight 2018-12-30 19:59:00 86.183 kg [facility] BMI 2018-12-30 19:59:00 32.61 kg/m2 [facility] Oxygen saturation in 2018-12-30 19:59:00 100 /min [facility] Arterial blood by [facility] ricardo Pulse oximetry Branch Systolic blood 2018-12-30 19:59:00 165 mm[Hg] [facility] [place] [facility] Diastolic blood 2018-12-30 19:59:00 107 mm[Hg] [facility] [place] [facility] Heart rate 2018-12-30 19:59:00 85 /min [facility] Body temperature 2018-12-30 19:59:00 37 Jen [facility] Respiratory rate 2018-12-30 19:59:00 16 /min [facility] Body weight 2018-12-30 19:59:00 86.183 kg [facility] BMI 2018-12-30 19:59:00 32.61 kg/m2 [facility] Oxygen saturation in 2018-12-30 19:59:00 100 /min [facility] [place] [facility] Systolic blood 2018-12-30 19:59:00 165 mm[Hg] [facility] Procedures Procedure Date / Time Performed Performing Clinician Sourc e POCT TEST 2022-03-24 05:17:[address] [facility]USAL FOR 2022-03-24 04:14:52 Doctor Unassigned, No [facility] [place] [facility] TREATMENT CONSENT/REFUSAL FOR 2022-01-26 05:28:11 Doctor Unassigned, No [facility] [place] [facility] TREATMENT CONSENT/REFUSAL FOR 2021-10-28 06:12:45 Doctor Unassigned, No [facility] [place] [facility] TREATMENT NOTICE OF PRIVACY 2021-08-10 20:22:03 Doctor Unassigned, No Univ [facility] Name Medical Branch CONSENT/REFUSAL FOR 2021-08-10 20:20:00 Doctor Unassigned, No [facility] [place] [facility] TREATMENT NE INJECTION AA&/STRD 2021-04-26 02:11:49 [facility] EACH Medical Br anch BRANCH POCT TEST 2021-04-26 01:11:00 Chris Rodriguez [facility] NOTICE OF PRIVACY 2021-04-26 00:35:44 [facility] CONSENT/REFUSAL FOR 2021-04-26 00:35:26 Doctor Unassigned, No [facility] [place] [facility] Medical Branch TREATMENT POCT TEST 2021-04-15 04:16:00 Sarah Joel [facility] NOTICE OF PRIVACY 2021-04-15 03:49:11 Doctor Unassigned, No Univ [facility] Name Medical Branch CONSENT/REFUSAL FOR 2021-04-15 03:42:10 Doctor Unassigned, No [facility] [place] [facility] Name Medical Branch TREATMENT TEST, SERUM 2020-05-09 06:50:00 Faby Stone [facility] HB ABO GROUPING 2020-05-09 06:50:00 Faby Stone [place] [facility] BASIC METABOLIC PANEL 2020-05-09 06:39:00 Faby Stone [facility] (NA, K, CL, CO2, Medical Branch GLUCOSE, BUN, CREATININE, CA) CBC WITH DIFF 2020-05-09 06:39:00 Faby Stone [facility] Medical Branch URINALYSIS 2020-05-09 06:39:00 Faby Stone [facility] Medical Branch POCT TEST 2020-05-09 06:31:00 Faby Stone [facility] Medical Branch NOTICE OF PRIVACY 2020-05-09 06:12:27 Doctor Unassigned, No [facility] [place] [facility] Name Medical Branch CONSENT/REFUSAL FOR 2020-05-09 [...] (ID NOW RAPID 2019-10-01 23:52:00 Braydon Lee [facility] Medical Branch CONSENT/REFUSAL FOR 2019-10-01 22:35:59 Doctor Unassigned, No [facility] [place] [facility] Medical Branch TREATMENT URINALYSIS 2018-12-30 21:08:00 Myrna Myers [facility] Medical Branch POCT TEST 2018-12-30 21:08:00 Myrna Myers [facility] Medical Branch NOTICE OF PRIVACY 2018-12-30 19:33:39 Doctor Unassigned, No Univ [facility] Name Medical Branch Encounters Start End Encounter Admission Attending Care Care Encounter Source Date/Time Date/Time Type Type Clinicians Facility Department ID 2022-03-28 Outpatient Vizcarra, STLMLC STLMLC [id number] Common 10:06:03 [facility] 2022-03-25 Outpatient Vizcarra, STLMLC STLMLC [id number] Common 10:29:00 [facility] 2022-03-24 Outpatient Vizcarra, STLMLC STLMLC [id number] Common 11:51:02 [facility] 2022-02-27 Outpatient Vizcarra, STLMLC STLMLC [id number] Common 10:44:05 [facility] 2022-02-02 Outpatient Vizcarra, STLMLC STLMLC [id number] Common 10:37:04 [facility] 2022-01-16 Outpatient Vizcarra, STLMLC STLMLC [id number] Common 09:19:02 Guy [address] [facility] 2021-12-21 Outpatient Vizcarra, STLMLC STLMLC [id number] Common 10:09:03 Guy 04135 [facility] 2022-05-19 2022-05-19 (TEL) STLMLC STLMLC [id number] Co mmon 00:00:00 00:00:00 [facility] 2022-03-29 2022-03-29 (TEL) STLC STLMLC [id number] Co mmon 00:00:00 00:00:00 [facility] 2022-03-23 2022-03-24 [facility] [id number] Univers 22:30:00 00:21:00 WALI pereira [facility] 2022-03-23 2022-03-24 Emergency [facility] [id number] Univers 22:30:00 00:21:00 Wali CALIX [id number] i sammi [facility] 4.2.7.2.686 [facility] [id number] [address] 2022-03-23 2022-03-23 (TEL) STLMLC STLMLC [id number] Co mmon 00:00:00 00:00:00 [facility] 2022-02-28 2022-02-28 PREV VISIT STLMLC STLMLC [id number] Common 00:00:00 00:00:00 EST AGE [facility] 18[facility]39 - [facility] 2022-02-24 2022-02-24 (TEL) STLMLC STLMLC [id number] Co mmon 00:00:00 00:00:00 [facility] 2022-01-30 2022-01-30 (TEL) STLMLC STLMLC [id number] Co mmon 00:00:00 00:00:00 [facility] 2022-01-27 2022-01-27 (TEL) STLMLC STLMLC [id number] Co mmon 00:00:00 00:00:00 [facility] 2022-01-26 2022-01-26 Emergency X [facility]IDE [facility] ERT [id number] Univers 00:38:00 01:14:00 , LUZ MARINA pereira of [facility] 2022-01-26 2022-01-26 [facility] [id number] Univers 00:38:00 01:14:00 , Luz Marina CALIX [id number] i ty of [place] RON 4.2.7.2.686 [facility] [id number] [place] [id number] Branch 2022-01-18 2022-01-18 OFFICE STLMLC STLMLC [id number] Co mmon 00:00:00 00:00:00 VISIT EST Spir it PT LEVEL 3 - [facility] 2022-01-11 2022-01-11 (TEL) STLMLC STLMLC [id number] Co mmon 00:00:00 00:00:00 [facility] 2022-01-05 2022-01-05 (TEL) STLMLC STLMLC [id number] Co mmon 00:00:00 00:00:00 [facility] 2021-12-22 2021-12-22 (TEL) STLMLC STLMLC [id number] Co mmon 00:00:00 00:00:00 [facility] 2021-12-21 2021-12-21 OFFICE STLMLC STLMLC [id number] Co mmon 00:00:00 00:00:00 VISIT NEW Spir it PT LEVEL 3 - [facility] 2021-10-28 2021-10-28 Emergency X AIDEN [facility] ERT [id number] Univers 01:33:00 02:01:00 JARED pereira [facility] 2021-10-28 2021-10-28 [facility] [id number] Univers 01:33:00 02:01:00 Jared CALIX [id number] ity [facility] 4.2.7.2.686 [facility] [id number] [address] 2021-08-10 2021-08-10 Emergency X [facility] ERT [id number] Univers 15:29:00 16:34:00 OFELIA pereira [facility] 2021-08-10 2021-08-10 Emergency [facility] [id number] Univers 15:29:00 16:34:00 Ofelia CALIX 350.1.13.10 i ty of [place] 4.2[address] [place] [id number] 2021-04-25 2021-04-25 Emergency [facility] [id number] Univers 18:47:00 20:45:00 CHRIS ity [facility] 2021-04-25 2021-04-25 Emergency [facility] [id number] Univers 18:47:00 20:45:00 Chris B FIFI 350.1.13.10 i ty of [place] 4.2.7.2.686 [facility] [id number] [address] 2021-04-14 2021-04-14 Emergency [facility] [id number] Univers 22:04:00 23:00:00 Sarah CALIX [id number] ity of [place] 4.2.7.2.686 [facility] [id number] [address] 2021-04-14 2021-04-14 Emergency X MARYCRUZ [facility] ERT [id number] Univers 22:04:00 23:00:00 SARAH pereira [facility] 2020-05-09 2020-05-09 Emergency [facility] [id number] 00:11:00 03:03:00 Faby Patel [place] 350.1.13.[address] [place] [address] [place] [address] [id number] [facility] 2020-05-09 2020-05-09 [facility] [id number] Univers 00:11:00 03:03:00 Faby Amanda Calix 350.1.13.10 i ty of [place] 4.2.7.2.[address] [place] [id number] 2020-05-09 2020-05-09 Emergency X CHASE, [facility] ERT [id number] Univers 00:11:00 00:11:00 FABY [facility] 2019-10-01 2019-10-01 Emergency Braydon Lee [facility] [id number] Univers 17:49:15 20:06:00 Pat Calix 350.1.13.10 i ty of [place] 4.2.7.2.[address] [place] [id number] 2019-10-01 2019-10-01 Emergency Jesus K [facility] [id number] 17:49:15 20:06:00 Pat Calix 350.1.13.[address] [place] [address] [place] [address] [id number] [facility] 2019-10-01 2019-10-01 Emergency X [facility] ERT [id number] Univers 17:36:00 17:36:00 ity [facility] 2018-12-30 2018-12-30 Emergency [facility] [id number] [facility] 14:58:03 17:46:00 Myrna Calix 350.1.13.10 i ty of [place] 4.2.7.2.686 [facility] [id number] [facility] 084 Branch 2018-12-30 2018-12-30 Emergency [facility] [id number] 14:58:03 17:46:00 Myrna Calix 350.1.13.10 [place] 4.2.7.2.686 [place] [id number] 084 Results Test Description Test Time Test Comments Results Result Comments Source POCT TEST 2022-03-24 05:17:00 Test Item Value Reference Range Interpretation Comme nts POCT PREG (test code = 1605) negative On board controls acceptable with C Line (test code = 3574) positiv e POCT PREG LOT # (test code = 3575) [id number] POCT PREG TEST DATE (test code = 3576) 07/15/2023 Lab Interpretation (test code = 12047-0) [id number] 01:11:00 Test Item Value Reference Range Interpretation Comments POCT PREG (test code = 1605) negative On board controls acceptable with present C Line (test code = 3574) POCT PREG LOT # (test code = 3575) [id number] POCT PREG TEST DATE (test 06/13/2022 code = 3576) Lab Interpretation (test code = Normal 15572-7) [facility] [id number] 04:16:00 Test Item Value Reference Range Interpretation Comments POCT PREG (test code = 1605) neg On board controls acceptable with yes C Line (test code = 3574) POCT PREG LOT # (test code = 3575) [id number] POCT PREG TEST DATE (test 06/13/2022 code = 3576) Lab Interpretation (test code = Normal 45037-0) [facility], [id number] 07:35:00 Test Item Value Reference Range Interpretation Comments PREG SERUM (test code Negative = 3666474869) AL (test code = AL) Less than 10 IU/L. ?If low titer or ectopic is suspected, resubmit specimen in 48-72 hours. [facility] Screen - ONCE [id number] 07:34:36 Test Item Value Reference Range Interpretation Comments ABO & RH (test code O Positive Performe d at [facility] = 20) Laboratory Serv [facility] Blood Bank1 [address] [place], [place] [id number] Free: [phone] A No. [id number] IAT (test code = Negative Performed a t [facility] 1185) Laboratory Serv [facility] Blood [address] [place], [place] [address]Toll Free: [phone] A No. [id number] [facility]2021-01-24 07:28:00 Test Item Value Reference Range Interpretation Comments APPEARANCE (test code = Clear Clear 0712315861) COLOR (test code = Red Yellow A 9840552691) PH (test code = 4.8-8.0 3108819616) SP GRAVITY (test code = 1.003-1.030 L 5049898999) GLU U QUAL (test code = Normal Normal 1395565878) BLOOD (test code = 3+ Negative A 9731734400) KETONES (test code = Negative Negative 3995034085) PROTEIN (test code = 30 mg/dL Negative A 2887-8) UROBILIN (test code = Normal Normal 4741146701) BILIRUBIN (test code = Negative Negative 4245985295) NITRITE (test code = Negative Negative 6823944497) LEUK RANJANA (test code = 25/uL Negative A 9045349578) RBC/HPF (test code = See_Comment H [Autom ated message] 8235110853) The system [employer] generated this result transmitted ref erence range: 0 - 3 HP F. The reference range was not used to int erpret this result as normal/abnormal . WBC/HPF (test code = See_Comment H [Autom ated message] 0850090801) The system [employer] generated this result transmitted ref erence range: 0 - 5 HP F. The reference range was not used to int erpret this result as normal/abnormal . BACTERIA (test code = Few Negative A 7874850385) SQ EPITH (test code = <1 HPF 3941634498) Lab Interpretation (test Abnormal code = 04392-4) [facility] METABOLIC PANEL (NA, K, CL, CO2, GLUCOSE, BUN, CREATININE, CA)2020-05-09 07:11:00 Test Item Value Reference Range Interpretation Comments NA (test code = 138 mmol/L 135-145 7537253383) K (test code = 3.7 mmol/L 3.5-5 4806640096) CL (test code = 105 mmol/L 98-108 4052476326) CO2 TOTAL (test code = 23 mmol/L 23-31 7581851111) AGAP (test code = 2-16 7458939199) BUN (test code = 14 mg/dL 7-23 5766733602) GLUCOSE (test code = 101 mg/dL 70-110 9945459019) CREATININE (test code 0.61 mg/dL 0.5-1.04 = 5246417293) CALCIUM (test code = 9.2 mg/dL 8.6-10.6 8384073857) eGFR Calculation mL/min/1.73m2 (Non-) (test code = 0112590434) eGFR Calculation mL/min/1.73m2 () (test code = 9151818025) AL (test code = AL) Association of [...] or urine or abnormalities in imaging tests). [facility] WITH [id number] 06:47:00 Test Item Value Reference Range Interpretation Comments WBC (test code = See_Comment [Automated 6690-2) message] The sy stem which generated this [...] RDW-SD (test code = 46.9 fL 39-49.9 17978-7) RDW-CV (test code = 16.3 % 12-15.5 H 788-0) PLT (test code = See_Comment [Automated 777-3) message] The sy stem which generated this result transmitted reference range : 166 - 358 10*3/ ?L. The reference r duane was not used to interpret this result as normal/abnormal . MPV (test code = 10.7 fL 9.5-12.9 67129-0) NRBC/100 WBC (test See_Comment [Automat ed code = 2341013210) message] The system which generated this result transmitted reference range : 0.0 - 10.0 /100 WBCs. The refer ence range was not u sed to interpret th is result as normal/abnormal . NRBC x10^3 (test code <0.01 See_Comment [Auto mated = 9294671045) message] The s ystem which generated this result transmitted reference range : 10*3/?L. The reference range was not used to interpret this result as normal/abnormal . GRAN MAT (NEUT) % 56.2 % (test code = 770-8) IMM GRAN % (test code 0.00 % = 2702752811) LYMPH % (test code = 33.9 % 736-9) MONO % (test code = 6.9 % 5905-5) EOS % (test code = 2.4 % 713-8) BASO % (test code = 0.6 % 706-2) GRAN MAT x10^3(ANC) 2.62 10*3/uL 1.88-7.09 (test code = 0067852250) IMM GRAN x10^3 (test <0.03 0-0.06 code = 6545407725) LYMPH x10^3 (test code 1.58 10*3/uL 1.32-3.29 = 731-0) MONO x10^3 (test code 0.32 10*3/uL 0.33-0.92 L = 742-7) EOS x10^3 (test code = 0.11 10*3/uL 0.03-0.39 711-2) BASO x10^3 (test code 0.03 10*3/uL 0.01-0.07 = 704-7) Lab Interpretation Abnormal (test code = 89419-8) [facility] [id number] 06:31:00 Test Item Value Reference Range Interpretation Comments POCT PREG (test code = 1605) negative On board controls acceptable with positive C Line (test code = 3574) POCT PREG LOT # (test code = 3575) [id number] POCT PREG TEST DATE (test 02/12/2021 code = 3576) Lab Interpretation (test code = Normal 55376-2) [facility]OVID[facility] (ID NOW RAPID TESTING)2019-10-02 00:40:00 Test Item Value Reference Range Interpretation Comments SARS-CoV-2 Rapid ID NOW Positive Not Detected A (test code = 85305-8) AL (test code = AL) ID NOW COVID-19 Assay is an isothermal nucleic acid amplification test intended for the qualitative detection of nucleic acid from SARS-CoV-2 viral RNA in nasopharyngeal (TARGET DEVELOPER) specimens. It is used under Emergency Use [...] indicated. Lab Interpretation Abnormal (test code = 69385-6) [facility]2019-09-16 22:04:00 Test Item Value Reference Range Interpretation Comments APPEARANCE (test code = Clear Clear 9099650236) COLOR (test code = Straw Yellow A 3780639468) PH (test code = 4.8-8.0 5042912716) SP GRAVITY (test code = 1.003-1.030 6053644644) GLU U QUAL (test code = Normal Normal 8214935406) BLOOD (test code = Negative Negative 5980436633) KETONES (test code = Negative Negative 1860053304) PROTEIN (test code = Negative Negative 2887-8) UROBILIN (test code = Normal Normal 1421517386) BILIRUBIN (test code = Negative Negative 0897423377) NITRITE (test code = Negative Negative 6895529453) LEUK RANJANA (test code = 25/uL Negative A 0421723215) RBC/HPF (test code = See_Comment [Autom ated message] 4930955695) The system [employer] generated this result transmitted ref erence range: 0 - 3 HP F. The reference range was not used to int erpret this result as normal/abnormal . WBC/HPF (test code = See_Comment [Autom ated message] 6337821036) The system [employer] generated this result transmitted ref erence range: 0 - 5 HP F. The reference range was not used to int erpret this result as normal/abnormal . BACTERIA (test code = Negative Negative 0962494763) SQ EPITH (test code = HPF 2061990916) Lab Interpretation (test Abnormal code = 25894-2) [facility] [id number] 21:08:00 Test Item Value Reference Range Interpretation Comments POCT PREG (test code = 1605) negative On board controls acceptable with present C Line (test code = 3574) POCT PREG LOT # (test code = 3575) [id number] POCT PREG TEST DATE (test 04-15-2020 code = 3576) Lab Interpretation (test code = Normal 26901-4) [facility]"
[2022-05-26 18:40] LABS: Urine Blood Negative (Negative); Urine Glucose Negative (Negative); Urine Protein Negative (Negative); Urine pH 5.5 (5.0-7.0)
[2022-05-26] MEDS ORDERED: ONDANSETRON 4 MG/2 ML VIAL ONE (19:57)
[2022-05-26] MEDS ORDERED: DICYCLOMINE HCL 20 MG/2 ML AMP IM ONE (19:57)
[2022-05-26] MEDS ORDERED: FAMOTIDINE 20 MG/2 ML VIAL IV ONE (19:58)
[2022-05-26] MEDS ORDERED: NA CHLORIDE 0.9% 1,000 ML ONE (19:58)
[2022-05-26 20:08] LABS: Absolute Lymphocytes (CBC) 0.4 K/uL (0.7-4.9); Hematocrit 24.4 % (36.0-45.0); MCV 69.6 fL (80-100); MPV 7.7 fL (7.6-11.3)
[2022-05-26 20:18] LABS: Albumin 3.5 g/dL (3.4-5.0); Bilirubin Total 0.7 mg/dL (0.2-1.0); Potassium 3.2 mmol/L (3.5-5.1); Protein, Total 6.9 g/dL (6.4-8.2)
[2022-05-26 21:13] LABS: Blood Morphology Comment NOTED (NOT SEEN); Platelet Estimate ADEQ; White Blood Cell Scan OK (OK)
[2022-05-26 21:14] LABS: Anisocytosis 1+; Hypochromasia 1+
--- NOTE | 2022-05-26 22:01 | RAD REPORT ---
EXAM DESCRIPTION: CTAbdomen Pelvis W Contrast - 05/26/2022 9:46 pm CLINICAL HISTORY: ABD PAIN COMPARISON: Abdomen Pelvis W Contrast dated 10/28/2017 TECHNIQUE: CT of the abdomen and pelvis was performed. All CT scans are performed using dose optimization technique as appropriate and may include automated exposure control or mA/KV adjustment according to patient size. FINDINGS: Lower chest: No acute abnormality. Liver: No acute abnormality or suspicious lesions. Biliary: No biliary ductal dilatation. Stomach: No significant focal abnormality. Duodenum: No significant focal abnormality. Pancreas: No significant abnormality. Spleen: No significant abnormality. Adrenal: No suspicious lesions. Kidney/ureter: No hydronephrosis. No renal calculi. Bilateral renal lesions which are likely cysts. Retroperitoneum: No retroperitoneal adenopathy. Vascular: No aneurysm. Bowel: No significant focal abnormality. Normal appendix. Peritoneum: Trace pelvic free fluid which is likely physiologic. Adnexal lesions also likely physiolo gic. Bladder: Grossly unremarkable. Reproductive: No adnexal masses. Bones: No acute fracture. Other: n/a IMPRESSION: No acute intra-abdominal or pelvic finding. Normal appendix.
--- NOTE | 2022-05-26 22:20 | ER ---
Nurse's Notes [facility] Name: Joyce Mera Age: 36 yrs Sex: Female : 1985 Arrival Date: 05/26/2022 Time: 18:03 Bed 5 Private MD: Diagnosis: Nausea with vomiting, unspecified;Diarrhea, unspecified;Anemia in other chronic diseases classified elsewhere Presentation: 05/26 18:14 Chief complaint: Patient states: fever, vomiting, diarrhea that began today at 0530. Pt aa5 states "I have stomach pain just from throwing up". Coronavirus screen: diarrhea, vomiting. Ebola Screen: Patient denies travel to an Ebola-affected area in the 21 days before illness onset. Initial Sepsis Screen: Does the patient meet any 2 criteria? No. Patient's initial sepsis screen is negative. Does the patient have a suspected source of infection? No. Patient's initial sepsis screen is negative. Risk Assessment: Do you want to hurt yourself or someone else? Patient reports no desire to harm self or others. Onset of symptoms was May 26, 2022. 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 - Social history:: Smoking status: Patient denies any tobacco usage or history of. Screenin:54 [facility] ED Fall Risk Assessment (Adult) History of falling in the last 3 months, vc1 including since admission No falls in past 3 months (0 pts) Confusion or Disorientation No (0 pts) Intoxicated or Sedated No (0 pts) Impaired Gait No (0 pts) Mobility Assist Device Used No (0 pt) Altered Elimination No (0 pt) Score/Fall Risk Level 0 - 2 = Low Risk Oriented to surroundings, Maintained a safe environment, Educated pt \\T\\ family on fall prevention, incl call for assistance when getting out of bed. Abuse screen: Denies threats or abuse. Nutritional screening: No deficits noted. Tuberculosis screening: No symptoms or risk factors identified. Assessment: 20:16 General: Appears in no apparent distress. Behavior is calm, cooperative. Pain: aa9 Complains of pain in abdomen. Neuro: Level of Consciousness is awake, alert, obeys commands, Oriented to person, place, time, situation. Cardiovascular: Patient's skin is warm and dry. Respiratory: Airway is patent Respiratory effort is even, unlabored. GI: Abdomen is flat, Reports diarrhea, nausea, vomiting. : No signs and/or symptoms were reported regarding the genitourinary system. Derm: Skin is intact, is healthy with good turgor. 22:29 Reassessment: Patient appears in no apparent distress at this time. Patient is alert, aa9 oriented x 3, equal unlabored respirations, skin warm/dry/pink. Patient denies pain at this time. Patient states feeling better. Vital Signs: 18:14 BP 132 / 84; Pulse 86; Resp 18 S; Temp 97.8(TE); Pulse Ox 100% on R/A; Weight 85.28 kg aa5 (R); Height 5 ft. 4 in. (162.56 cm) (R); 19:30 BP 134 / 84; Pulse 73; Resp 18; Pulse Ox 100% ; vc1 20:30 BP 121 / 92; Pulse 72; Resp 17; Pulse Ox 97% on R/A; vc1 18:14 Body Mass Index 32.27 (85.28 kg, 162.56 cm) aa5 ED Course: 18:03 Patient arrived in ED. rg4 18:14 Shreyas Schmitt PA is PHCP. cp 18:14 Peterson Lambert MD is Attending Physician. cp 18:14 Arm band placed on. aa5 18:15 Triage completed. aa5 19:28 Aman Frazier MD is Attending Physician. cp 19:46 CBC with Diff Sent. aa9 19:46 CMP Sent. aa9 19:46 Lipase Sent. aa9 20:02 Ericka Franklin, REJI is Primary Nurse. aa9 21:48 CT Abd/Pelvis - IV Contrast Only In Process Unspecified. EDMS 21:54 Patient has correct armband on for positive identification. Bed in low position. Call vc1 light in reach. Pulse ox on. NIBP on. 22:28 No provider procedures requiring assistance completed. IV discontinued, intact, aa9 bleeding controlled, No redness/swelling at site. Pressure dressing applied. Administered Medications: 20:00 Drug: Pepcid (famotidine) 20 mg Route: IVP; Site: right antecubital; aa9 21:45 Follow up: Response: No adverse reaction aa9 20:00 Drug: Zofran (Ondansetron) 4 mg Route: IVP; Site: right antecubital; aa9 21:45 Follow up: Response: No adverse reaction aa9 20:02 Drug: NS 0.9% 1000 ml Route: IV; Rate: 1 bolus; Site: right antecubital; aa9 21:45 Follow up: Response: No adverse reaction; IV Status: Completed infusion; IV Intake: aa9 1000ml 20:02 Drug: Dicyclomine 20 mg Route: IM; Site: right gluteus; aa9 21:45 Follow up: Response: No adverse reaction aa9 Medication: 21:54 VIS not applicable for this client. vc1 Intake: 21:45 IV: 1000ml; Total: 1000ml. aa9 Outcome: 22:19 Discharge ordered by . rajinder 22:28 Discharged to home ambulatory. aa9 22:28 Condition: stable 22:28 Discharge instructions given to patient, Instructed on discharge instructions, follow up and referral plans. Demonstrated understanding of instructions, follow-up care, medications, Prescriptions given X 2. 22:29 Patient left the ED. aa9 Signatures: Dispatcher [employer] EDMS Shantel Noland, RN RN aa5 Shreyas Schmitt PA PA cp Garcia, Rubi rg4 Nimisha Waterman RN RN vc1 Ericka Franklin RN RN aa9
--- NOTE | 2022-05-26 22:20 | EDPHYS ---
Physician Documentation [facility] Name: Joyce Mera Age: 36 yrs Sex: Female : 1985 Arrival Date: 05/26/2022 Time: 18:03 Bed 5 Private MD: ED Physician Aman Frazier HPI: 05/26 18:45 This 36 yrs old Female presents to ER via Ambulatory with complaints of Fever, Vomiting.cp 18:45 The patient presents to the emergency department with nausea, that is moderate, cp vomiting, that is continuous, diarrhea, that is continuous, abdominal pain, of the abdomen diffusely, described as crampy, and does not radiate. Onset: The symptoms/episode began/occurred this morning. Possible causes: unknown. Associated signs and symptoms: Pertinent positives: fever, Pertinent negatives: constipation, GI bleeding, cough, sore throat. 18:45 The patient reports fever, not measured (subjective). Severity of symptoms: in the emergency department the symptoms are unchanged despite home interventions. 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 - Social history:: Smoking status: Patient denies any tobacco usage or history of. ROS: 18:50 Constitutional: Positive for poor PO intake, Negative for fever. cp 18:50 Eyes: Negative for injury, pain, redness, and discharge. cp 18:50 ENT: Negative for drainage from ear(s), ear pain, difficulty swallowing, difficulty handling secretions. 18:50 Neck: Negative for pain with movement, pain at rest, stiffness, tenderness. 18:50 Cardiovascular: Negative for chest pain. 18:50 Respiratory: Negative for cough, shortness of breath, wheezing. 18:50 Abdomen/GI: Positive for abdominal pain, nausea, vomiting, and diarrhea, Negative for constipation, hematemesis, black/tarry stool. 18:50 : Negative for urinary symptoms. 18:50 Neuro: Negative for altered mental status, dizziness, headache. 18:50 All other systems are negative. Exam: 18:55 Constitutional: The patient appears in no acute distress, alert, awake, non-toxic, well cp developed, well nourished, uncomfortable. 18:55 Head/Face: Normocephalic, atraumatic. cp 18:55 Eyes: Periorbital structures: appear normal, Conjunctiva: normal, no exudate, no injection, Sclera: no appreciated abnormality, Lids and lashes: appear normal, bilaterally. 18:55 ENT: External ear(s): are unremarkable, Nose: is normal, Mouth: Lips: moist, Oral mucosa: pink and intact, moist, Posterior pharynx: is normal, airway is patent, no erythema, no exudate. 18:55 Chest/axilla: Inspection: normal. 18:55 Cardiovascular: Rate: tachycardic. 18:55 Respiratory: the patient does not display signs of respiratory distress, Respirations: normal, no use of accessory muscles, no retractions, labored breathing, is not present, Breath sounds: are clear throughout, no decreased breath sounds, no stridor, no wheezing. 18:55 Abdomen/GI: Inspection: abdomen appears normal, Bowel sounds: active, all quadrants, Palpation: soft, in all quadrants, moderate abdominal tenderness, in the right upper quadrant and left upper quadrant. 18:55 Back: pain, is absent, ROM is normal. 18:55 Neuro: Orientation: to person, place \T\ time. Mentation: is normal, Motor: moves all fours, strength is normal, Sensation: Vital Signs: 18:14 BP 132 / 84; Pulse 86; Resp 18 S; Temp 97.8(TE); Pulse Ox 100% on R/A; Weight 85.28 kg aa5 (R); Height 5 ft. 4 in. (162.56 cm) (R); 19:30 BP 134 / 84; Pulse 73; Resp 18; Pulse Ox 100% ; vc1 20:30 BP 121 / 92; Pulse 72; Resp 17; Pulse Ox 97% on R/A; vc1 18:14 Body Mass Index 32.27 (85.28 kg, 162.56 cm) aa5 MDM: 18:22 Patient medically screened. cp 20:00 Differential diagnosis: gastritis, cholecystitis, appendicitis, viral Infection, cp bacterial infection, gastroenteritis. 22:18 Data reviewed: vital signs, nurses notes, lab test result(s), radiologic studies, CT cp scan. 22:18 Consideration of Admission/Observation Escalation of care including cp admission/observation considered. I considered the following discharge prescriptions or medication management in the emergency department Medications were administered in the Emergency Department. See MAR. Test considered but Not performed: Labs: type and screen. Ultrasound gallbladder. External Records Reviewed: Inpatient record: H/H from previous admission. Care significantly affected by the following chronic conditions: Hypertension, anemia. Counseling: I had a detailed discussion with the patient and/or guardian regarding: the historical points, exam findings, and any diagnostic results supporting the discharge/admit diagnosis, lab results, radiology results, the need for outpatient follow up, a family practitioner, to return to the emergency department if symptoms worsen or persist or if there are any questions or concerns that arise at home. Response to treatment: the patient's symptoms have markedly improved after treatment, and as a result, I will discharge patient. ED course: VSS. Review of records show history of chronic anemia. Patient denies blood in stools, vaginal bleeding. Reports upcoming appt for IV iron infusion. Will discharge to home for continued monitoring. 05/26 18:40 Order name: Urine Dipstick-Ancillary; Complete Time: 20:30 EDMS 05/26 18:40 Order name: Urine --Ancillary (enter results); Complete Time: 20:30 aa5 05/26 19:28 Order name: CBC with Diff; Complete Time: 21:36 cp 05/26 20:30 Interpretation: Normal except: RBC 3.50; HGB 7.2; HCT 24.4; MCV 69.6; MCH 20.7; MCHC cp 29.8; RDW 22.6; KARTHIKEYAN% 83.4; LYM% 9.0; LYMA 0.4. 05/26 19:28 Order name: CMP; Complete Time: 20:30 cp 05/26 21:36 Interpretation: Normal except: K 3.2; CL 111; AST 14; CA 8.1; A/G 1.0. cp 05/26 19:28 Order name: Lipase; Complete Time: 20:30 cp 05/26 18:40 Order name: Urine Dipstick-Ancillary (obtain specimen); Complete Time: 18:40 aa5 05/26 18:40 Order name: Urine Test (obtain specimen); Complete Time: 18:40 aa5 05/26 20:11 Order name: CBC Smear Scan; Complete Time: 21:36 EDMS 05/26 21:36 Interpretation: Reviewed. cp 05/26 20:31 Order name: CT Abd/Pelvis - IV Contrast Only; Complete Time: 22:07 cp 05/26 22:07 Interpretation: Report reviewed. cp 05/26 19:28 Order name: IV Saline Lock; Complete Time: 19:46 cp 05/26 19:28 Order name: Labs collected and sent; Complete Time: 19:46 cp Administered Medications: 20:00 Drug: Pepcid (famotidine) 20 mg Route: IVP; Site: right antecubital; aa9 21:45 Follow up: Response: No adverse reaction aa9 20:00 Drug: Zofran (Ondansetron) 4 mg Route: IVP; Site: right antecubital; aa9 21:45 Follow up: Response: No adverse reaction aa9 20:02 Drug: NS 0.9% 1000 ml Route: IV; Rate: 1 bolus; Site: right antecubital; aa9 21:45 Follow up: Response: No adverse reaction; IV Status: Completed infusion; IV Intake: aa9 1000ml 20:02 Drug: Dicyclomine 20 mg Route: IM; Site: right gluteus; aa9 21:45 Follow up: Response: No adverse reaction aa9 Disposition: 05/27 02:42 Co-signature as Attending Physician, Aman Frazier MD I reviewed the patient's care rn provided by the Advanced Practice Provider and agree with the diagnosis and treatment plan. Disposition Summary: 05/26/22 22:19 Discharge Ordered Location: Home cp Problem: new cp Symptoms: have improved cp Condition: Stable cp Diagnosis - Nausea with vomiting, unspecified cp - Diarrhea, unspecified cp - Anemia in other chronic diseases classified elsewhere cp Followup: cp - With: Private Physician - When: 2 - 3 days - Reason: anemia Discharge Instructions: - Discharge Summary Sheet cp - Anemia cp - Food Choices to Help Relieve Diarrhea, Adult cp - Diarrhea, Adult cp - Nausea and Vomiting, Adult cp Forms: - Medication Reconciliation Form cp - Thank You Letter cp - Antibiotic Education cp - Prescription Opioid Use cp - Work release form aa9 Prescriptions: - Zofran 4 mg Oral Tablet - take 1 tablet by ORAL route every 12 hours As needed; 20 tablet; Refills: 0, cp Product Selection Permitted - dicyclomine 20 mg Oral Tablet - take 1 tablet by ORAL route 3 times per day; 20 tablet; Refills: 0, Product cp Selection Permitted Signatures: Dispatcher [employer] Aman Neely MD MD rn Shantel Noland RN RN aa5 hSreyas Schmitt PA PA cp Avalos, Aylin RN RN aa9
[2022-05-26 22:43] VITALS: TEMP 97.8
[2022-05-26 22:46] VITALS: BP 121/92; O2SAT 97
== END 2022-05-26 22:29 | disposition home or self-care (01) ==
LOC: ER 17:59
DX: R11.2 Nausea with vomiting, unspecified (principal); R19.7 Diarrhea, unspecified; D64.9 Anemia, unspecified; I10 Essential (primary) hypertension
CPT/HCPCS: 96361; 85025; 36415; 81025; 81003; 83690; 80053; 74177; 96375; 96372; 96374; 99284; Q9967; J0500; J7030; J2405

== ENCOUNTER 2022-09-10 09:16 | Emergency (ER) | payer OTHER ==
--- OUTSIDE RECORDS SUMMARY | 2022-09-10 09:22 | XMS REPORT | Continuity of Care Document ---
:1985 Author Organization [facility] t Address [address] [place] [id number] Care Team Providers Name Role Phone JUAN VIZCARRA Primary Care Physician Unavailable Juan Vizcarra Attending Clinician Unavailable RAIN CHU Attending Clinician Unavailable RAIN CHU Attending Clinician Unavailable ASHLEY KAT Attending Clinician Unavailable ASHLEY KAT Attending Clinician Unavailable Doctor Unassigned, [place] Attending Clinician Unavailable WALI CORNELL Attending Clinician Unavailable Wali Jacques Attending Clinician LUZ MARINA TAYLOR Attending Clinician Unavailable Luz Mraina Taylor MD Attending Clinician [phone] JARED GALLEGOS Attending Clinician Unavailable Jared Gallegos MD Attending Clinician OFELIA ESPINO Attending Clinician Unavailable Ofelia Espino DO Attending Clinician CHRIS RODRIGUEZ Attending Clinician Unavailable Chris Engle Attending Clinician Sarah Joel APN Attending Clinician SARAH JOEL Attending Clinician Unavailable Faby Fajardo Attending Clinician FABY STONE Attending Clinician Unavailable Braydon Owusu Attending Clinician Lucia KEITHAdalbertoedgar Acevedo Attending Clinician Payers Payer Name Policy Type Policy Number Effective Date Expiration Date Amanda rodgers [facility] [id number] 2020 CHOICE [place] STAR 00:00:00 [facility] [id number] 2020 CHIP 00:00:00 STAR - [facility] [id number] HEALTH CHOICE Problems Condition Condition Condition Status Onset Resolution Last Treating Co mments Source Name Details Category Date Date Treatment Clinician Date Coffee Coffee Disease Active [facility] ground ground [address] emesis emesis 00:00: Medical Center Acute Acute Disease Active Overview: [facility] blood loss blood loss 5-05 [facility] anemia anemia 00:00: g of this Medical 00 note Center might be different from the original. [facility] from [facility] to [place] on for acute blood loss anemia with [...] received 2units at [facility]. 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 Sp ludmila blood loss anemia - CHI secondary St to blood [facility] Medical (chronic) Center Benign Benign Problem Common essential essential Spir it hypertensi hypertensi - CHI on on [facility] Menorrhagi Menorrhagi Problem C ommon a a Spirit - [facility] Chronic Chronic Problem Common fatigue fatigue Spirit syndrome - [facility] [id number] Other Problem Common obesity Spirit due to - CHI excess calories [facility] Abnormal Abnormal Problem Commo n uterine bleeding Spirit bleeding in - CHI menstrual cycle [facility] [id number] Acute pain Problem C ommon of right Spirit knee - CHI [facility] Decreased Other Problem Common blood decreased Spirit leucocyte white - [facility] number blood cell St (WBC) [facility] count [facility] [id number] RLS Problem Common (restless Spirit legs - CHI syndrome) [facility] [id number] Neuropathy Problem Co mmon Spirit - CHI [facility] [id number] GERD Problem Common without Spirit esophagiti - [facility] s [facility] [id number] Body mass Problem Com mon index [facility] [BMI] - [facility] 34.0-34.9, [facility] [id number] Peripheral Problem Co mmon tear of Spirit medial - [facility] meniscus St of right [facility] knee as Medical current Center injury, subsequent encounter No known No known Disease Unive rs active active ity of problems problems [facility] Allergies, Adverse Reactions, Alerts Allergy Allergy Status Severity Reaction(s) Onset Inactive Treating Comm ents Source Name Type Date Date Clinician NO KNOWN Drug Active Univers ALLERGIE Class ity of S [facility] Social History Social Habit Start Date Stop Date Quantity Comments Source History of Common Spirit - Tobacco Use [facility] Alcohol intake 2022-08-14 2022-08-14 Ex-drinker [facility] 00:00:00 00:00:00 (finding) [facility] Exposure to 2022-07-22 2022-08-01 Not sure [facility] SARS-CoV-2 00:00:00 09:07:00 [facility] (event) Branch Sex Assigned At [birth year] [facility] 00:00:00 00:00:00 Medical Center Smoking Status Start Date Stop Date Source Never smoked tobacco [facility] Medications Ordered Filled Start Stop Current Ordering Indication Dosage Frequency Signature Comments Components Source Medication Medication Date Date Medication? Clinician (SIG) Name Name norethindro Yes [id number] .35mg Take 1 Univers ne (ORTHO 4-18 tablet by itarian o f MICRONOR) 00:[place] 0[place] mg 00 the Medical tablet morning. Branch norethindro 2023-0 Yes [id number] .35mg Take 1 Univers ne (ORTHO 4-18 tablet by ity o f MICRONOR) 00:00: [place] 0.[place] mg 00 the Medical tablet morning. Branch hydroCHLORO Yes Univer s thiazide 25 4-14 ity of mg tablet 00:00: [place] 00 Medical Branch hydroCHLORO 0 Yes Univer s thiazide 25 4-14 ity of mg tablet 00:00: [address] [facility] Branch methocarbam 2021-04 Yes 500mg 500 mg, Un earlene oL 2-09 Oral, QID, ity of (ROBAXIN) 05:15: [place] tablet 500 00 on [facility] mg 03/23/22 at Branch 2315, Until Discontinu ed, Routine ibuprofen 2021-04 800mg 800 mg, Uni vers (IBU) 2-09 12-09 Oral, ity of tablet 800 05:00: 05:16 ONCE, 1 [place] mg 00 :00 dose, On Medical [place] [facility] 03/23/22 at [facility], TANVIR ibuprofen 2021-04 Yes [id number] 600mg Take 1 U nivers 600 mg 2-09 tablet by ity of tablet 00:00: mouth [place] 00 every 8 Medical (eight) Branch hours as needed for Pain (scale 4-6). gabapentin 2021-04 Yes [id number] 300mg Take 1 Univers 300 mg 2-09 capsule by ity of capsule 00:00: mouth 3 00 (three) Medical times Branch daily as needed for Pain (scale 7-10). ibuprofen 2021-04 Yes [id number] 600mg Take 1 U nivers 600 mg 2-09 tablet by ity of tablet 00:00: mouth [place] 00 every 8 Medical (eight) Branch hours as needed for Pain (scale 4-6). gabapentin 2021-04 Yes [id number] 300mg Take 1 Univers 300 mg 2-09 capsule by ity of capsule 00:00: mouth 3 [place] 00 (three) Medical times Branch daily as needed for Pain (scale 7-10). ibuprofen 2021-04 Yes [id number] 600mg Take 1 U nivers 600 mg 2-09 tablet by ity of tablet 00:00: mouth [place] 00 every 8 Medical (eight) Branch hours as needed for Pain (scale 4-6). gabapentin 2021-04 Yes [id number] 300mg Take 1 Univers 300 mg 2-09 capsule by ity of capsule 00:00: mouth (three) Medical times Branch daily as needed for Pain (scale 7-10). ibuprofen 2021-04 Yes [id number] 600mg Take 1 U nivers 600 mg 2-09 tablet by ity of tablet 00:00: mouth 00 every 8 Medical (eight) Branch hours as needed for Pain (scale 4-6). gabapentin 2021-04 Yes [id number] 300mg Take 1 Univers 300 mg 2-09 capsule by ity of capsule 00:00: mouth (three) Medical times Branch daily as needed for Pain (scale 7-10). methocarbam 2021-04 Yes [id number] 500mg Take 1 Univers oL 500 mg 2-08 tablet by ity o f tablet 00:00: mouth (three) Medical times Branch daily as needed for Pain (scale 7-10). methocarbam 2021-04 Yes [id number] 500mg Take 1 Univers oL 500 mg 2-08 tablet by ity o f tablet 00:00: mouth (three) Medical times Branch daily as needed for Pain (scale 7-10). methocarbam 2021-04 Yes [id number] 500mg Take 1 Univers oL 500 mg 2-08 tablet by ity o f tablet 00:00: mouth (three) Medical times Branch daily as needed for Pain (scale 7-10). methocarbam 2021-04 Yes [id number] 500mg Take 1 Univers oL 500 mg 2-08 tablet by ity o f tablet 00:00: mouth (three) Medical times Branch daily as needed for Pain (scale 7-10). ketorolac 2021-04 30mg 30 mg, Unive rs (TORADOL) 0-13 01-26 Intramuscu ity of injection 05:45: 05:56 lar, ONCE, [place] 30 mg 00 :00 1 dose, On Medical [place] Branch 01/26/22 at 0045, TANVIR cyclobenzap 2021-04 Yes [id number] 5mg Take 1 Univers rine 5 mg 0-13 tablet by ity o f tablet 00:00: mouth in the Medical morning Branch and 1 tablet at noon and 1 tablet in the evening. gabapentin 2021-04 Yes [id number] 300mg Take 1 Univers 300 mg 0-13 capsule by ity of capsule 00:00: mouth in [place] 00 the Medical morning Branch and 1 capsule at noon and 1 capsule in the evening. cyclobenzap 2021-04- No [id number] 5mg Take 1 Univers rine 5 mg 0-13 12-08 tablet by ity of tablet 00:00: 00:00 mouth in [place] 00 :00 the Medical morning Branch and 1 tablet at noon and 1 tablet in the evening. gabapentin 2021-04- No [id number] 300mg Take 1 Univers 300 mg 0-13 12-08 capsule by ity of capsule 00:00: 00:00 mouth in [place] 00 :00 the Medical morning Branch and 1 capsule at noon and 1 capsule in the evening. Mobic 7.5 Mobic 7.5 2021- No 1{table QD Mobic 7.5 MG MG -10 23- t} MG 00:00: 00:00 00 :00 Mobic 7.5 Mobic 7.5 2021- No 1{table QD Mobic 7.5 MG MG -10 23- t} MG 00:00: 00:00 00 :00 Mobic 7.5 Mobic 7.5 2021- No 1{table QD Mobic 7.5 MG MG 9-10 23- t} MG 00:00: 00:00 00 :00 Mobic 7.5 Mobic 7.5 2021-2021- No 1{table QD Mobic 7.5 MG MG 9-10 23- t} MG 00:00: 00:00 00 :00 Mobic 7.5 Mobic 7.5 2021- No 1{table QD Mobic 7.5 MG MG 9-10 23- t} MG 00:00: 00:00 00 :00 Mobic 7.5 Mobic 7.5 2021- No 1{table QD Mobic 7.5 MG MG 9-10 23- t} MG 00:00: 00:00 00 :00 gabapentin 2021- No 600mg 600 mg, Un earlene (NEURONTIN) 7-15 07-15 Oral, ity of capsule 600 07:00: 06:56 ONCE, 1 [place] mg 00 :00 dose, On Medical Fri Branch 10/28/21 at 0200, TANVIR gabapentin 2021-0 Yes [id number] 600mg Take 1 Univers 600 mg - 07 tablet by ity of tablet 00:00: mouth in [place] 00 the Medical morning Branch and 1 tablet in the evening. gabapentin 2021-0 Yes [id number] 600mg Take 1 Univers 600 mg -15 07 tablet by ity of tablet 00:00: mouth in [place] 00 the Medical morning Branch and 1 tablet in the evening. gabapentin 2021-0 2021- No [id number] 600mg Take 1 Univers 600 mg -15 - 07 tablet by ity of tablet 00:00: 00:00 mouth in [place] 00 :00 the Medical morning Branch and 1 tablet in the evening. methylPREDN 2021-0 Yes [id number] Take by Univers ISolone -27 mouth ity of (MEDROL, 00:00: SEE-INSTRU [place] TREASURE,) 4 mg 00 CTIONS. Medica l tablets follow Branch package directions methylPREDN 2021-0 Yes [id number] Take by Univers ISolone 4-27 mouth ity of (MEDROL, 00:00: SEE-INSTRU [place] TREASURE,) 4 mg 00 CTIONS. Medica l tablets follow Branch package directions methylPREDN 2021-0 Yes [id number] Take by Univers ISolone -27 mouth ity of (MEDROL, 00:00: SEE-INSTRU [place] TREASURE,) 4 mg 00 CTIONS. Medica l tablets follow Branch package directions methylPREDN 2021-0 2021- No [id number] Take by Univers ISolone 4-27 12-08 mouth ity of (MEDROL, 00:00: 00:00 [place] TREASURE,) 4 mg 00 :00 CTIONS. Medica l tablets follow Branch package directions gabapentin 2021-0 2021- No [id number] 300mg Take 1 Univers 300 mg -09 09-08 capsule by ity of capsule 00:00: 04:59 mouth 3 [place] 00 :00 (three) Medical times Branch daily for 10 days. methocarbam 2021-2021- No [id number] 500mg Take 1 Univers oL 500 mg -09 09-03 tablet by ity of tablet 00:00: 04:59 [...] 04/14/21 at 2315, TANVIR amLODIPine 2020-04 Yes [id number] 2.5mg Take 1 Univers 2.5 mg 2-30 tablet by ity of tablet 00:00: mouth at [place] [address] bedtime. Medical Branch amLODIPine 2020-04 Yes [id number] 2.5mg Take 1 Univers 2.5 mg 2-30 tablet by ity of tablet 00:00: mouth at [place] [address] bedtime. Medical Branch amLODIPine 2020-04 Yes [id number] 2.5mg Take 1 Univers 2.5 mg 2-30 tablet by ity of tablet 00:00: mouth at [place] [address] bedtime. Medical Branch amLODIPine 2020-04 Yes [id number] 2.5mg Take 1 Univers 2.5 mg 2-30 tablet by ity of tablet 00:00: mouth at [place] [address] bedtime. Medical Branch amLODIPine 2020-04 Yes [id number] 2.5mg Take 1 Univers 2.5 mg 2-30 tablet by ity of tablet 00:00: mouth at [place] [address] bedtime. Medical Branch amLODIPine 2020-04 Yes [id number] 2.5mg Take 1 Univers 2.5 mg 2-30 tablet by ity of tablet 00:00: mouth at [place] [address] bedtime. Medical Branch amLODIPine 2020-04 Yes [id number] 2.5mg Take 1 Univers 2.5 mg 2-30 tablet by ity of tablet 00:00: mouth at [place] [address] bedtime. Medical Branch amLODIPine 2020-04 Yes [id number] 2.5mg Take 1 Univers 2.5 mg 2-30 tablet by ity of tablet 00:00: mouth at [place] 00 bedtime. Medical Branch amLODIPine 2020-04 Yes [id number] 2.5mg Take 1 Univers 2.5 mg 2-30 tablet by ity of tablet 00:00: mouth at [place] [address] bedtime. Medical Branch gabapentin 2020-04- No [id number] 300mg Take 1 Univers 300 mg 2-30 01-30 capsule by ity of capsule 00:00: 05:59 mouth 3 [place] 00 :00 (three) Medical times Branch daily for 30 days. gabapentin 2020-04- No [id number] 300mg Take 1 Univers 300 mg 2-30 01-30 capsule by ity of capsule 00:00: 05:59 mouth 3 [place] 00 :00 (three) Medical times [place] daily for 30 days. [facility] 2020-04 No 40mg Common (Triamcinol (Triamcinol 2-07 S pirit one) one) 00:00: - [facility]I 00 [facility] 2020-04 No 40mg Common (Triamcinol (Triamcinol 2-07 S pirit one) one) 00:00: - [facility]I 00 [facility] 2020-04 No 40mg Common (Triamcinol (Triamcinol 2-07 S pirit one) one) 00:00: - [facility]I 00 [facility] 2020-04 No 40mg Common (Triamcinol (Triamcinol 2-07 S pirit one) one) 00:00: - [facility]I 00 [facility] Griffith 2020-04 No 40mg Common (Triamcinol (Triamcinol 2-07 S pirit one) one) 00:00: - CHI 00 [facility] Griffith 2020-04 No 40mg Common (Triamcinol (Triamcinol 2-07 S pirit one) one) 00:00: - CHI 00 [facility] 2020-04 No 40mg Common (Triamcinol (Triamcinol 2-07 S pirit one) one) 00:00: - CHI 00 [facility] 2020-04 No 40mg Common (Triamcinol (Triamcinol 2-07 S pirit one) one) 00:00: - CHI 00 [facility] 2020-04 No 40mg Common (Triamcinol (Triamcinol 2-07 S pirit one) one) 00:00: - CHI 00 [facility] 2020-04 No 40mg Common (Triamcinol (Triamcinol 2-07 S pirit one) one) 00:00: - CHI 00 [facility] 2020-04 No 40mg Common (Triamcinol (Triamcinol 2-07 S pirit one) one) 00:00: - CHI 00 [facility] 2020-04 No 40mg Common (Triamcinol (Triamcinol 2-07 S pirit one) one) 00:00: - CHI 00 [facility] 2020-04 No 40mg Common (Triamcinol (Triamcinol 2-07 S pirit one) one) 00:00: - CHI 00 [facility] 2020-04 No 40mg Common (Triamcinol (Triamcinol 2-07 S pirit one) one) 00:00: - CHI 00 [facility] 2020-04 No 40mg Common (Triamcinol (Triamcinol 2-07 S pirit one) one) 00:00: - CHI 00 [facility] 2020-04 No 40mg Common (Triamcinol (Triamcinol 2-07 S pirit one) one) 00:00: - [facility]I 00 [facility] naproxen 2020- No 500mg 500 mg, Univ ers (NAPROSYN) 05-09 01-24 Oral, ity of tablet 500 09:00: [...] 05/09/20 at 0200, STAT naproxen 0 Yes [id number] 500mg Take 1 Univers (NAPROSYN) 1-24 100 tablet by ity of 500 mg 00:00: mouth 2 [place] tablet 00 (two) Medical times Branch daily with meals. norgestimat Yes [id number] 1{tbl} Take 1 Univers e-ethinyl 1-24 100 tablet by ity o f estradioL 00:00: mouth [place] 0.25-35 00 daily. Medical mg-mcg per Branch tablet naproxen 2020- Yes [id number] 500mg Take 1 Univers (NAPROSYN) 1-24 100 tablet by ity of 500 mg 00:00: mouth 2 [place] tablet 00 (two) Medical times Branch daily with meals. norgestimat Yes [id number] 1{tbl} Take 1 Univers e-ethinyl 1-24 100 tablet by ity o f estradioL 00:00: mouth [place] 0.25-35 00 daily. Medical mg-mcg per Branch tablet naproxen Yes [id number] 500mg Take 1 Univers (NAPROSYN) 1-24 100 tablet by ity of 500 mg 00:00: mouth 2 [place] tablet 00 (two) Medical times Branch daily with meals. norgestimat Yes [id number] 1{tbl} Take 1 Univers e-ethinyl 1-24 100 tablet by ity o f estradioL 00:00: mouth [place] 0.25-35 00 daily. Medical mg-mcg per Branch tablet naproxen 2020-0 Yes [id number] 500mg Take 1 Univers (NAPROSYN) 1-24 100 tablet by ity of 500 mg 00:00: mouth 2 [place] tablet 00 (two) Medical times Branch daily with meals. norgestimat 2020- Yes [id number] 1{tbl} Take 1 Univers e-ethinyl 1-24 100 tablet by ity o f estradioL 00:00: mouth [place] 0.25-35 00 daily. Medical mg-mcg per Branch tablet naproxen 2020- Yes [id number] 500mg Take 1 Univers (NAPROSYN) 1-24 100 tablet by ity of 500 mg 00:00: mouth 2 [place] tablet 00 (two) Medical times [place] daily with meals. norgestimat Yes [id number] 1{tbl} Take 1 Univers e-ethinyl 1-24 100 tablet by ity o f estradioL 00:00: mouth [place] 0.25-35 00 daily. Medical mg-mcg per Branch tablet naproxen Yes [id number] 500mg Take 1 Univers (NAPROSYN) 1-24 100 tablet by ity of 500 mg 00:00: mouth 2 [place] tablet 00 (two) Medical times [place] daily with meals. norgestimat Yes [id number] 1{tbl} Take 1 Univers e-ethinyl 1-24 100 tablet by ity o f estradioL 00:00: mouth [place] 0.25-35 00 daily. Medical mg-mcg per Branch tablet naproxen 2022- No [id number] 500mg Take 1 Univers (NAPROSYN) 1-24 12-08 100 tablet by ity of 500 mg 00:00: 00:00 mouth 2 [place] tablet 00 :00 (two) Medical times [place] daily with meals. norgestimat 2022- No [id number] 1{tbl} Take 1 Univers e-ethinyl 1-24 12-08 100 tablet by ity of estradioL 00:00: 00:00 mouth [place] 0.25-35 00 :00 daily. Medical mg-mcg per Branch tablet hydrOXYzine 2019-0 2020- No 25mg 25 mg, Uni vers (ATARAX) 10-01 Oral, ity of tablet 25 00:45: 23:43 ONCE, 1 [place] mg 00 :00 dose, [facility] 10/01/19 at Branch 1945, TANVIR famotidine 2019-0 2020- No 40mg 40 mg, Univ ers (PEPCID AC) 10-01 Oral, ity of tablet 40 00:30: 23:43 ONCE, 1 [place] mg 00 :00 dose, [facility] 10/01/19 at Branch 1930, TANVIR methylpredn 2019-0 2020- No 125mg 125 mg, U nivers isolone sod 10-01 Intramuscu i ty of succ 00:30: 23:48 lar, ONCE, [place] (SOLU-MEDRO 00 :00 1 dose, Medic al L) Wed Branch injection 10/01/19 at 125 mg 1930, STAT hydrOXYzine 2020-0 Yes [id number] 50mg Take 1 Univers (VISTARIL) 6-17 capsule by ity of 50 mg 00:00: mouth 3 [place] capsule 00 (three) Medical times Branch daily as needed for Itching. famotidine 2020-0 Yes [id number] 40mg Take 1 Univers (PEPCID) 40 6-17 tablet by ity of mg tablet 00:00: mouth 00 daily. Medical Branch benzonatate 2020-0 Yes [id number] 100mg Take 1 Univers 100 mg 6-17 capsule by ity of capsule 00:00: mouth 3 [place] (three) Medical times Branch daily as needed for Cough. hydrOXYzine 2020-0 Yes [id number] 50mg Take 1 Univers (VISTARIL) 6-17 capsule by ity of 50 mg 00:00: mouth 3 [place] capsule 00 (three) Medical times Branch daily as needed for Itching. famotidine 2020-0 Yes [id number] 40mg Take 1 Univers (PEPCID) 40 6-17 tablet by ity of mg tablet 00:00: mouth [place] 00 daily. Medical Branch benzonatate 2020-0 Yes [id number] 100mg Take 1 Univers 100 mg 6-17 capsule by ity of capsule 00:00: mouth 3 [place] (three) Medical times Branch daily as needed for Cough. hydrOXYzine 2020-0 Yes [id number] 50mg Take 1 Univers (VISTARIL) 6-17 capsule by ity of 50 mg 00:00: mouth 3 [place] capsule 00 (three) Medical times Branch daily as needed for Itching. famotidine 2020-0 Yes [id number] 40mg Take 1 Univers (PEPCID) 40 6-17 tablet by ity of mg tablet 00:00: mouth 00 daily. Medical Branch benzonatate 2020-0 Yes [id number] 100mg Take 1 Univers 100 mg 6-17 capsule by ity of capsule 00:00: mouth 3 [place] 00 (three) Medical times Branch daily as needed for Cough. hydrOXYzine 2020-0 Yes [id number] 50mg Take 1 Univers (VISTARIL) 6-17 capsule by ity of 50 mg 00:00: mouth 3 [place] capsule 00 (three) Medical times Branch daily as needed for Itching. famotidine 2020-0 Yes [id number] 40mg Take 1 Univers (PEPCID) 40 6-17 tablet by ity of mg tablet 00:00: mouth [place] 00 daily. Medical Branch benzonatate 2020-0 Yes [id number] 100mg Take 1 Univers 100 mg 6-17 capsule by ity of capsule 00:00: mouth 3 [place] 00 (three) Medical times Branch daily as needed for Cough. hydrOXYzine 2020-0 Yes [id number] 50mg Take 1 Univers (VISTARIL) 6-17 capsule by ity of 50 mg 00:00: mouth 3 [place] capsule 00 (three) Medical times Branch daily as needed for Itching. famotidine 2020-0 Yes [id number] 40mg Take 1 Univers (PEPCID) 40 6-17 tablet by ity of mg tablet 00:00: mouth [place] 00 daily. Medical Branch benzonatate 2020-0 Yes [id number] 100mg Take 1 Univers 100 mg 6-17 capsule by ity of capsule 00:00: mouth 3 [place] 00 (three) Medical times Branch daily as needed for Cough. famotidine 2020-0 Yes [id number] 40mg Take 1 Univers (PEPCID) 40 6-17 tablet by ity of mg tablet 00:00: mouth [place] 00 daily. Medical Branch hydrOXYzine 2020-0 Yes [id number] 50mg Take 1 Univers (VISTARIL) 6-17 capsule by ity of 50 mg 00:00: mouth 3 [place] capsule 00 (three) Medical times Branch daily as needed for Itching. famotidine 2020-0 Yes [id number] 40mg Take 1 Univers (PEPCID) 40 6-17 tablet by ity of mg tablet 00:00: mouth [place] 00 daily. Medical Branch famotidine 2020-0 Yes [id number] 40mg Take 1 Univers (PEPCID) 40 6-17 tablet by ity of mg tablet 00:00: mouth [place] 00 daily. Medical Branch benzonatate 2020-0 Yes [id number] 100mg Take 1 Univers 100 mg 6-17 capsule by ity of capsule 00:00: mouth 3 [place] 00 (three) Medical times Branch daily as needed for Cough. famotidine 2020-0 Yes [id number] 40mg Take 1 Univers (PEPCID) 40 6-17 tablet by ity of mg tablet 00:00: mouth [place] 00 daily. Medical Branch famotidine 2020-0 Yes [id number] 40mg Take 1 Univers (PEPCID) 40 6-17 tablet by ity of mg tablet 00:00: mouth [place] 00 daily. Medical Branch hydrOXYzine 2020-0 Yes [id number] 50mg Take 1 Univers (VISTARIL) 6-17 capsule by ity of 50 mg 00:00: mouth 3 [place] capsule 00 (three) Medical times Branch daily as needed for Itching. famotidine 2020-0 Yes [id number] 40mg Take 1 Univers (PEPCID) 40 6-17 tablet by ity of mg tablet 00:00: mouth [place] 00 daily. Medical Branch benzonatate 2020-0 Yes [id number] 100mg Take 1 Univers 100 mg 6-17 capsule by ity of capsule 00:00: mouth 3 [place] 00 (three) Medical times Branch daily as needed for Cough. hydrOXYzine 2019-0 2021- No [id number] 50mg Take 1 Univers (VISTARIL) 6-17 12-08 capsule by it y of 50 mg 00:00: 00:00 mouth 3 [place] capsule 00 :00 (three) Medical times Branch daily as needed for Itching. benzonatate 2020-0 2021- No [id number] 100mg Take 1 Univers 100 mg 6-17 [...] as needed for Pain (scale 7-10). traMADOL 2016-2021- No 50mg Take 1 Univer s (ULTRAM) 50 4-15 12-08 tablet by it y of mg tablet 00:00: 00:00 mouth [place] 00 :00 every 6 Medical (six) Branch hours as needed for Pain (scale 7-10). hydroCHLORO hydroCHLORO No QD hydroCHLOR thiazide 25 [...] 600 MG 600 MG le} 600 MG Vital Signs Vital Name Observation Time Observation Value Comments Source Systolic blood 2022-08-01 14:36:00 130 mm[Hg] Univer sity [facility] Diastolic blood 2022-08-01 14:36:00 90 [facility]Hg[facility] 2022-08-01 14:36:00 68 /min [facility] Respiratory rate 2022-08-01 14:36:00 16 /min [facility] [facility] 2022-08-01 14:36:00 162.6 cm [facility] Body weight 2022-08-01 14:36:00 79.47 kg [facility] BMI 2022-08-01 14:36:00 30.07 kg/m2 [facility] Oxygen saturation in 2022-08-01 14:36:00 96 /min [facility] blood by [facility] Pulse oximetry Branch Systolic blood 2022-03-24 06:11:54 157 mm[Hg] Univer [facility] Diastolic blood 2022-03-24 06:11:54 109 mm[Hg] Unive rsity of [facility] Heart rate 2022-03-24 06:11:54 71 /min Universi ty [facility] Respiratory rate 2022-03-24 06:11:54 18 /min [facility] in 2022-03-24 06:11:54 100 /min University of Arterial blood by [facility] Pulse oximetry Branch Body temperature 2022-03-24 04:25:00 36.61 Jen [facility] Body height 2022-03-24 04:25:00 162.6 cm [facility] Body weight 2022-03-24 04:25:00 86.183 kg [facility] BMI 2022-03-24 04:25:00 32.61 kg/m2 [facility] height 2022-02-28 16:30:00 63 [in_i] Common [facility] weight 2022-02-28 16:30:00 187.0 [lb_av] Common [facility] temperature 2022-02-28 16:30:00 97.2 [degF] Common [facility] bmi 2022-02-28 16:30:00 33.12 kg/m2 [facility] oximetry 2022-02-28 16:30:00 98 % Common [facility] respiratory rate 2022-02-28 16:30:00 18 /min Comm on [facility] blood pressure 2022-02-28 16:30:00 134 mm[Hg] Common [facility] - systolic [facility] blood pressure 2022-02-28 16:30:00 64 mm[Hg] Common [facility] - diastolic [facility] Systolic blood 2022-01-26 05:30:00 141 mm[Hg] Univer sity of [facility] Diastolic blood 2022-01-26 05:30:00 96 mm[Hg] Unive rsity of [facility] Heart rate 2022-01-26 05:30:00 91 /min Universi ty [facility] Body temperature 2022-01-26 05:30:00 36.78 Jen Univ ersity of [facility] Respiratory rate 2022-01-26 05:30:00 18 /min [facility] Body height 2022-01-26 05:30:00 152.4 cm Universi ty [facility] Body weight 2022-01-26 05:30:00 86.183 kg Universi ty [facility] BMI 2022-01-26 05:30:00 37.11 kg/m2 Universi [facility] Oxygen saturation in 2022-01-26 05:30:00 98 /min [facility] Arterial blood by [facility] Pulse oximetry Branch height 2022-01-18 08:45:00 63 [in_i] Common [facility] weight 2022-01-18 08:45:00 192 [lb_av] [facility] temperature 2022-01-18 08:45:00 97.4 [degF] Common [facility] bmi 2022-01-18 08:45:00 34.01 kg/m2 Common [facility] blood pressure 2022-01-18 08:45:00 130 mm[Hg] [facility] blood pressure 2022-01-18 08:45:00 80 mm[Hg] [facility] - [facility] height 2021-12-21 10:00:00 63 [in_i] Common [facility] weight 2021-12-21 10:00:00 192 [lb_av] [facility] temperature 2021-12-21 10:00:00 97.8 [degF] Common [facility] bmi 2021-12-21 10:00:00 34.01 kg/m2 [facility] blood pressure 2021-12-21 10:00:00 128 mm[Hg] [facility] - [facility] blood pressure 2021-12-21 10:00:00 78 mm[Hg] [facility] - diastolic [facility] Systolic blood 2021-10-28 06:27:00 174 mm[Hg] Univer sity of [facility] Diastolic blood 2021-10-28 06:27:00 119 mm[Hg] Unive rsity of [facility] Heart rate 2021-10-28 06:27:00 88 /min Universi ty [facility] Body temperature 2021-10-28 06:27:00 36.28 Jen Univ ersity [facility] Respiratory rate 2021-10-28 06:27:00 16 /min Univ ersity [facility] Body height 2021-10-28 06:27:00 162.6 cm [facility] Body weight 2021-10-28 06:27:00 94.53 kg [facility] BMI 2021-10-28 06:27:00 35.77 kg/m2 [facility] Oxygen saturation in 2021-10-28 06:27:00 98 /min University of Arterial blood by [place] [facility] ricardo Pulse oximetry Branch Systolic blood 2021-08-10 20:28:00 160 mm[Hg] Univer sity of [facility] Diastolic blood 2021-08-10 20:28:00 108 mm[Hg] Unive rsity of [facility] Heart rate 2021-08-10 20:28:00 73 /min Universi ty [facility] Body temperature 2021-08-10 20:28:00 36.61 Jen Univ ersity [facility] Respiratory rate 2021-08-10 20:28:00 17 /min Univ ersity [facility] Body height 2021-08-10 20:28:00 162.6 cm [facility]i [facility] Body weight 2021-08-10 20:28:00 88.905 kg [facility] BMI 2021-08-10 20:28:00 33.64 kg/m2 Universi ty [facility] Oxygen saturation in 2021-08-10 20:28:00 100 /min University of Arterial blood by [employer] ricardo Pulse oximetry Branch Systolic blood 2021-04-26 00:45:00 148 mm[Hg] Univer sity of [facility] Diastolic blood 2021-04-26 00:45:00 113 mm[Hg] Unive rsity of pressure [facility] Heart rate 2021-04-26 00:45:00 92 /min Universi ty [facility] Body temperature 2021-04-26 00:45:00 36.11 Jen Univ ersity [facility] Respiratory rate 2021-04-26 00:45:00 22 /min Univ ersity [facility] Body height 2021-04-26 00:45:00 162.6 cm [facility]i [facility] Body weight 2021-04-26 00:45:00 90.719 kg [facility] BMI 2021-04-26 00:45:00 34.33 kg/m2 [facility] Oxygen saturation in 2021-04-26 00:45:00 100 /min [facility] Arterial blood by [place] [facility] ricardo Pulse oximetry Branch Systolic blood 2021-04-15 04:01:00 149 mm[Hg] Univer sity of [facility] Diastolic blood 2021-04-15 04:01:00 105 mm[Hg] Unive rsity of pressure [facility] Heart rate 2021-04-15 04:01:00 89 /min Universi ty [facility] Body temperature 2021-04-15 04:01:00 37.17 Jen Univ ersity [facility] Respiratory rate 2021-04-15 04:01:00 18 /min Univ ersity [facility] Body height 2021-04-15 04:01:00 162.6 cm [facility]i [facility] Body weight 2021-04-15 04:01:00 90.719 kg [facility]i [facility] BMI 2021-04-15 04:01:00 34.33 kg/m2 [facility]i [facility] Oxygen saturation in 2021-04-15 04:01:00 100 /min [facility] Arterial blood by [place] [facility] ricardo Pulse oximetry Branch Systolic blood 2020-05-09 08:00:00 126 mm[Hg] Univer sity of [facility] Diastolic blood 2020-05-09 08:00:00 74 mm[Hg] Unive rsity of pressure [facility] Heart rate 2020-05-09 08:00:00 78 /min Universi ty [facility] Respiratory rate 2020-05-09 08:00:00 18 /min Univ ersity [facility] Oxygen saturation in 2020-05-09 08:00:00 99 /min [facility] Arterial blood by [facility] Pulse oximetry Branch Body temperature 2020-05-09 06:23:00 36.5 Ejn Univ ersity [facility] Body height 2020-05-09 06:16:00 162.6 cm [facility]i [facility] Body weight 2020-05-09 06:16:00 88.451 kg [facility] BMI 2020-05-09 06:16:00 33.47 kg/m2 [facility] Systolic blood 2020-05-09 08:00:00 126 mm[Hg] Univer sity of [facility] Diastolic blood 2020-05-09 08:00:00 74 mm[Hg] Unive rsity of [facility] Heart rate 2020-05-09 08:00:00 78 /min Universi ty [facility] Respiratory rate 2020-05-09 08:00:00 18 /min Univ ersity [facility] Oxygen saturation in 2020-05-09 08:00:00 99 /min [facility] Arterial blood by [facility] Pulse oximetry Branch Body temperature 2020-05-09 06:23:00 36.5 Jen Univ ers[facility] Body height 2020-05-09 06:16:00 162.6 cm [facility] Body weight 2020-05-09 06:16:00 88.451 kg [facility] BMI 2020-05-09 06:16:00 33.47 kg/m2 [facility] Systolic blood 2019-10-01 22:46:00 172 mm[Hg] Univer sity of [facility] Diastolic blood 2019-10-01 22:46:00 88 mm[Hg] Unive rsity of [facility] Heart rate 2019-10-01 22:46:00 100 /min Universi ty [facility] Body temperature 2019-10-01 22:46:00 36.67 Jen Univ ersity [facility] Respiratory rate 2019-10-01 22:46:00 16 /min Univ [facility] Body height 2019-10-01 22:46:00 160 cm [facility] Body weight 2019-10-01 22:46:00 88.451 kg [facility] BMI 2019-10-01 22:46:00 34.54 kg/m2 [facility] Oxygen saturation in 2019-10-01 22:46:00 100 /min [facility]terial blood by [place] [facility] Pulse oximetry Branch Systolic blood 2019-10-01 22:46:00 172 mm[Hg] Univer sity of [facility] Diastolic blood 2019-10-01 22:46:00 88 mm[Hg] Unive rsity of [facility] Heart rate 2019-10-01 22:46:00 100 /min [facility]i ty [facility] Body temperature 2019-10-01 22:46:00 36.67 Jen Univ ers[facility] Respiratory rate 2019-10-01 22:46:00 16 /min Univ ersity [facility] Body height 2019-10-01 22:46:00 160 cm [facility] Body weight 2019-10-01 22:46:00 88.451 kg [facility] BMI 2019-10-01 22:46:00 34.54 kg/m2 [facility] Oxygen saturation in 2019-10-01 22:46:00 100 /min [facility] Arterial blood by [place] [facility] ric[facility] Pulse oximetry Branch Diastolic blood 2018-12-30 19:59:00 107 mm[Hg] Unive rsity of pressure [facility] Heart rate 2018-12-30 19:59:00 85 /min [facility]i ty [facility] Body temperature 2018-12-30 19:59:00 37 Jen Univ [facility] Respiratory rate 2018-12-30 19:59:00 16 /min Univ ersity [facility] Body weight 2018-12-30 19:59:00 86.183 kg [facility] BMI 2018-12-30 19:59:00 32.61 kg/m2 [facility] Oxygen saturation in 2018-12-30 19:59:00 100 /min [facility] Arterial blood by [place] [facility] Pulse oximetry Branch Systolic blood 2018-12-30 19:59:00 165 mm[Hg] Univer sity of [facility] Diastolic blood 2018-12-30 19:59:00 107 mm[Hg] Unive rsity [facility] Heart rate 2018-12-30 19:59:00 85 /min [facility] Body temperature 2018-12-30 19:59:[address] [facility] [place] [facility] Res[facility] rate 2018-12-30 19:59:00 16 /min [facility] Body weight 2018-12-30 19:59:00 86.183 kg [facility] BMI 2018-12-30 19:59:00 32.61 kg/m2 [facility] Oxygen saturation in 2018-12-30 19:59:00 100 /min [facility] Arterial blood by [facility] Pulse oximetry Branch Systolic blood 2018-12-30 19:59:00 165 mm[Hg] Univer sit of [facility] Procedures Procedure Date / Time Performed Performing Clinician Sour e URINE CULTURE 2022-08-01 19:56:00 Rain Chu [facility] ASSIGNMENT OF BENEFITS 2022-08-01 14:08:22 Doctor Unassigned, No [facility] POCT URINALYSIS W/O 2022-08-01 00:00:00 Rain Chu [facility] SPECIFIC GRAVITY [facility] POCT TEST 2022-03-24 05:17:00 Wali Cornell [facility] CONSENT/REFUSAL FOR 2022-03-24 04:14:52 Doctor Unassigned, No [facility] [place] [facility] AND Name Medical Branch TREATMENT CONSENT/REFUSAL FOR 2022-01-26 05:28:11 Doctor Unassigned, No [facility] [place] DIAGNOSIS AND Name Medical Branch TREATMENT CONSENT/REFUSAL FOR 2021-10-28 06:12:45 Doctor Unassigned, No [facility] [place] DIAGNOSIS AND Name Medical Branch TREATMENT NOTICE OF PRIVACY 2021-08-10 20:22:03 Doctor Unassigned, No [facility] Medical Branch CONSENT/REFUSAL FOR 2021-08-10 20:20:00 Doctor Unassigned, No [facility] [place] DIAGNOSIS AND Name Medical Branch TREATMENT MS INJECTION AA&/STRD 2021-04-26 02:11:49 Chris Rodriguez [facility] TRIGEMINAL NERVE EACH Medical Br anch BRANCH POCT TEST 2021-04-26 01:11:00 Chris Rodriguez [facility] NOTICE OF PRIVACY 2021-04-26 00:35:44 Doctor [facility]igned, No [facility] CONSENT/REFUSAL FOR 2021-04-26 00:35:26 Doctor Unassigned, No [facility] [place] DIAGNOSIS AND Name Medical Branch TREATMENT POCT TEST 2021-04-15 04:16:00 Sarah Joel [facility] NOTICE OF PRIVACY 2021-04-15 03:49:11 Doctor [facility]igned, [facility] CONSENT/REFUSAL FOR 2021-04-15 03:42:10 Doctor Unassigned, No [facility] [place] DIAGNOSIS AND Name Medical Branch TREATMENT TEST, SERUM 2020-05-09 06:50:00 Faby Stone [facility] HB ABO GROUPING 2020-05-09 06:50:00 Faby Stone [facility] BASIC METABOLIC PANEL 2020-05-09 06:39:00 Faby Stone [facility] (NA, K, CL, CO2, Medical Branch GLUCOSE, BUN, CREATININE, CA) CBC WITH DIFF 2020-05-09 06:39:00 Faby Stone [facility] URINALYSIS 2020-05-09 06:39:00 Faby Stone [facility] POCT TEST 2020-05-09 06:31:00 Faby Stone [facility] NOTICE OF PRIVACY 2020-05-09 06:12:27 Doctor [facility]igned, [facility] CONSENT/REFUSAL FOR 2020-05-09 06:09:51 Doctor Unassigned, No [facility] [place] DIAGNOSIS AND Name Medical Branch TREATMENT CONSENT/REFUSAL FOR 2020-05-09 06:09:50 Doctor Unassigned, No [facility] [place] DIAGNOSIS AND Name Medical Branch TREATMENT CONSENT/REFUSAL [...] (ID NOW RAPID 2019-10-01 23:52:[address] [facility], [facility] TESTING) Medical Branch CONSENT/REFUSAL FOR 2019-10-01 22:35:59 Doctor Unassigned, No [facility] [place] DIAGNOSIS AND Name Medical Branch TREATMENT URINALYSIS 2018-12-30 21:08:00 Myrna Myers [facility] POCT TEST 2018-12-30 21:08:00 Myrna Myers [facility] NOTICE OF PRIVACY 2018-12-30 19:33:39 Doctor Unassigned, No [facility] Name Medical Branch Plan of Care Planned Activity Planned Date Details Comments Source Future Scheduled 2022-12-[address] [facility] Test 00:00:00 (Season Ended) [code Medical Center = INFLUENZA VACCINE (Season Ended)] Future Scheduled 2022-04-[address] [facility] Test 00:00:00 (12+) [code = Medical Center DEPRESSION SCREENING (12+)] Future Scheduled 2007-11-[address] Test 00:00:00 malignant neoplasm of Medica l Center cervix (procedure) [code = 212615146] Future Scheduled 2005 DTAP/TDAP/TD VACCINES [facility] Test 00:00:00 (1 - Tdap) [code = Medical C enter DTAP/TDAP/TD VACCINES (1 - Tdap)] Future Scheduled 2004 HEPATITIS C SCREENING [facility] Test 00:00:00 [code = HEPATITIS C Medical Center SCREENING] Future Scheduled [address] [facility] Test 00:00:00 Counseling and Medical Cente r Screening (12+) [code = Tobacco Cessation Counseling and Screening (12+)] Future Scheduled 1987-05-20 COVID-19 VACCINE (#1) [facility] Test 00:00:00 [code = COVID-[address] VACCINE (#1)] Encounters Start End Encounter Admission Attending Care Care Encounter Source Date/Time Date/Time Type Type Clinicians Facility Department ID 2022-03-28 Outpatient Vizcarra, STLMLC STLMLC [id number] Common 10:06:03 Juan [address]165 [facility] 2022-03-25 Outpatient Vizcarra, STLMLC STLMLC [id number] Common 10:29:00 Juan [facility] 2022-03-24 Outpatient Vizcarra, STLMLC STLMLC [id number] Common 11:51:02 Juan 8[address] [facility] 2022-02-27 Outpatient Vizcarra, STLMLC STLC [id number] Common 10:44:05 Juan 06183 [facility] 2022-02-02 Outpatient Vizcarra, STLMLC STLMLC [id number] Common 10:37:04 Juan [facility] 2022-01-16 Outpatient Vizcarra, STLMLC STLMLC [id number] Common 09:19:02 Juan [facility] 2021-12-21 Outpatient Vizcarra, STLMLC STLC [id number] Common 10:09:03 Juan [id number] [facility] 2022-09-18 2022-09-18 Outpatient RAIN [facility] B [id number] Univers 00:00:00 00:00:00 RAIN CHU [facility] 2022-09-14 2022-09-14 Outpatient AMOS KAT [facility] [id number] SLE 00:00:00 00:00:00 ASHLEY 2022-08-04 2022-08-04 Outpatient [facility] B [id number] Univers 11:00:00 11:00:00 DERECKRAIN BLANKENSHIP arian [facility] 2022-08-04 2022-08-04 Outpatient LORI KAT [facility] [id number] [facility] [place] 00:00:00 00:00:00 ASHLEY linda of Medicin e 2022-08-01 2022-08-01 Outpatient R DESIREERAIN BAIRD [facility] B [id number] [facility] 09:00:00 09:58:49 DERECKRAIN BLANKENSHIP [facility] 2022-08-01 2022-08-01 Office [facility] [id number] [facility] 09:00:00 09:58:49 Visit Rain DERRICK [id number] it y of [facility] [id number] [facility] [id number] [facility] 134 Branch 2022-08-01 2022-08-01 Orders Doctor NATE [id number] Univers 00:00:00 00:00:00 Only Unassigned, MELANY [id number] ity of [place] [facility] [id number] Jonathan [id number] [facility] 009 Branch 2022-05-19 2022-05-19 (TEL) STLC STLMLC [id number] Co mmon 00:00:00 00:00:00 [facility] 2022-03-29 2022-03-29 (TEL) STLMLC STLMLC [id number] Co mmon 00:00:00 00:00:00 [facility] 2022-03-23 2022-03-24 Emergency X [facility] ERT [id number] Univers 22:30:00 00:21:00 SHINTA [facility] 2022-03-23 2022-03-24 Emergency [facility] [id number] Univers 22:30:00 00:21:00 Wali CALIX [id number] i ty of [place] [id number] [facility] [id number] [place] [id number] Branch 2022-03-23 2022-03-23 (TEL) STLMLC STLMLC [id number] Co mmon 00:00:00 00:00:00 [facility] 2022-02-28 2022-02-28 PREV VISIT STLMLC STLMLC [id number] Common 00:00:00 00:00:00 EST AGE Spirit 18-39 - [facility] 2022-02-24 2022-02-24 (TEL) STLMLC STLMLC [id number] Co mmon 00:00:00 00:00:00 [facility] 2022-01-30 2022-01-30 (TEL) STLMLC STLMLC [id number] Co mmon 00:00:00 00:00:00 [facility] 2022-01-27 2022-01-27 (TEL) STLMLC STLMLC [id number] Co mmon 00:00:00 00:00:00 [facility] 2022-01-26 2022-01-26 Emergency X AUFDERHEIDE RUST ERT [id number] Univers 00:38:00 01:14:00 , LUZ MARINA [facility] 2022-01-26 2022-01-26 [facility] [id number] Univers 00:38:00 01:14:00 , Luz Marina CALIX [id number] i ty of [place] R[place] [id number] [facility] [id number] [place] [address] Branch 2022-01-18 2022-01-18 OFFICE STLMLC STLMLC [id number] Co mmon 00:00:00 00:00:00 VISIT EST Spir it PT LEVEL 3 - [facility] 2022-01-11 2022-01-11 (TEL) STLMLC STLMLC [id number] Co mmon 00:00:00 00:00:00 [facility] 2022-01-05 2022-01-05 (TEL) STLMLC STLMLC [id number] Co mmon 00:00:00 00:00:00 [facility] 2021-12-22 2021-12-22 (TEL) STLMLC STLMLC [id number] Co mmon 00:00:00 00:00:00 [facility] 2021-12-21 2021-12-21 OFFICE STLMLC STLMLC [id number] Co mmon 00:00:00 00:00:00 VISIT NEW Spir it PT LEVEL 3 - [facility] 2021-10-28 2021-10-28 Emergency [facility] [id number] Univers 01:33:00 02:01:00 JARED pereira [facility] 2021-10-28 2021-10-28 Emergency [facility] [id number] Univers 01:33:00 02:01:00 Jared CALIX [id number] ity of [place] 4.2.7.2.6 [facility] [id number] [address] 2021-08-10 2021-08-10 Emergency [facility] [id number] Univers 15:29:00 16:34:00 OFELIA pereira [facility] 2021-08-10 2021-08-10 Emergency [facility] [id number] Univers 15:29:00 16:34:00 Ofelia CALIX [id number] i ty of [place] 4.2.7.[address] [place] [id number] 2021-04-25 2021-04-25 Emergency [facility] [id number] Univers 18:47:00 20:45:00 CHRIS ity [facility] 2021-04-25 2021-04-25 Emergency Formerly named [facility] [id number] Univers 18:47:00 20:45:00 Chris CALIX [id number] i ty of [place] [id number] [facility] [id number] [address] 2021-04-14 2021-04-14 Emergency [facility] [id number] Univers 22:04:00 23:00:00 Sarah CALIX [id number] ity of [place] [id number] [facility] [id number] [address] 2021-04-14 2021-04-14 Emergency [facility] ERT [id number] Univers 22:04:00 23:00:00 SARAH pereira [facility] 2020-05-09 2020-05-09 Emergency [facility] [id number] Univers 00:11:00 03:03:00 Faby Calix [id number] i ty of [place] [address].7.[address] [place] [id number] 2020-05-09 2020-05-09 Emergency [facility] [id number] 00:11:00 03:03:00 Faby [place]ton [id number] [place] [address] [place] [address] [id number] [facility] 2020-05-09 2020-05-09 Emergency [facility] ERT [id number] Univers 00:11:00 00:11:00 [facility] 2019-10-01 2019-10-01 Emergency Braydon Lee [facility] [id number] Univers 17:49:15 20:06:00 Pat Bacilio [id number] i ty of [place] 4.[address]7.[address] [place] [id number] 2019-10-01 2019-10-01 Emergency Braydon Lee [facility] [id number] 17:49:15 20:06:00 Pat [place] [id number] [place] [address] [place] [address] [id number] [facility] 2019-10-01 2019-10-01 Emergency X RUST ERT [id number] Univers 17:36:00 17:36:00 ity [facility] 2018-12-30 2018-12-30 Emergency [facility] [id number] [facility] 14:58:03 17:46:00 Myrna Calix [id number] i ty of [place] 4.2.7.2.686 [facility] [id number] [facility] 084 Branch 2018-12-30 2018-12-30 Emergency [facility] [id number] 14:58:03 17:46:00 Myrna Calix [id number] [place] 4.2.7.2.686 [place] [id number] Results Test Description Test Time Test Comments Results Result Comments Source POCT URINALYSIS W/O SPECIFIC GRAVITY 2022-08-01 14:43:00 Test Item Value Reference Range Interpretation Comme nts POCT PH U (test code = 3254) 5 mg/dl 5-8 POCT U LEUK EST (test code = 3263) positive Negative - Negative POCT U NIT (test code = 3262) negative Negative - Negative POCT U PROT (test code = 3259) trace Negative - Negative POCT U GLU (test code = 3256) negative Negative - Negative POCT U KETONE (test code = 3258) negative Negative - Negative POCT U BLD (test code = 3257) positive Negative - Negative [facility] URINALYSIS W/O SPECIFIC [id number] 14:43:00 Test Item Value Reference Range Interpretation Comments POCT PH U (test code = 3254) 5 mg/dl 5-8 POCT U LEUK EST (test code = positive Negative - Negative 3263) POCT U NIT (test code = 3262) negative Negative - Negative POCT U PROT (test code = 3259) trace Negative - Negative POCT U GLU (test code = 3256) negative Negative - Negative POCT U KETONE (test code = 3258) negative Negative - Negative POCT U BLD (test code = 3257) positive Negative - Negative [id number]00 Test Item Value Reference Range Interpretation Comments POCT PREG (test code = 1605) negative On board controls acceptable with positive C Line (test code = 3574) POCT PREG LOT # (test code = 3575) [id number] POCT PREG TEST DATE (test 07/15/2023 code = 3576) Lab Interpretation (test code = Normal 33855-0) [facility] [id number] 01:11:00 Test Item Value Reference Range Interpretation Comments POCT PREG (test code = 1605) negative On board controls acceptable with present C Line (test code = 3574) POCT PREG LOT # (test code = 3575) [id number] POCT PREG TEST DATE (test 06/13/2022 code = 3576) Lab Interpretation (test code = Normal 99768-9) [facility] [id number] 04:16:00 Test Item Value Reference Range Interpretation Comments POCT PREG (test code = 1605) neg On board controls acceptable with yes C Line (test code = 3574) POCT PREG LOT # (test code = 3575) [id number] POCT PREG TEST DATE (test 06/13/2022 code = 3576) Lab Interpretation (test code = Normal 62898-0) [facility], [id number] 07:35:00 Test Item Value Reference Range Interpretation Comments PREG SERUM (test code Negative = 5033498176) AL (test code = AL) Less than 10 IU/L. ?If low titer or ectopic is suspected, resubmit specimen in 48-72 hours. [facility] - ONCE [id number] 07:34:36 Test Item Value Reference Range Interpretation Comments ABO & RH (test code O Positive Performe d at RUST = 20) Laboratory Serv [facility] [place], [place] [address]Toll Free: [phone] A No. [id number] IAT (test code = Negative Performed a t RUST 1185) Laboratory [facility] [place] [address]Vncw Free: [phone] A No. [id number] [facility] 07:28:00 Test Item Value Reference Range Interpretation Comments APPEARANCE (test code = Clear Clear 6486972740) COLOR (test code = Red Yellow A 0292244888) PH (test code = 4.8-8.0 7876291991) SP GRAVITY (test code = 1.003-1.030 L 4956851600) GLU U QUAL (test code = Normal Normal 6024256806) BLOOD (test code = 3+ Negative A 4987375623) KETONES (test code = Negative Negative 7681339223) PROTEIN (test code = 30 mg/dL Negative A 2887-8) UROBILIN (test code = Normal Normal 0916498281) BILIRUBIN (test code = Negative Negative 9570589884) NITRITE (test code = Negative Negative 6047267321) LEUK RANJANA (test code = 25/uL Negative A 5611442685) RBC/HPF (test code = See_Comment H [Autom ated message] 4215443394) The system [employer] generated this result transmitted ref erence range: 0 - 3 HP F. The reference range was not used to int erpret this result as normal/abnormal . WBC/HPF (test code = See_Comment H [Autom ated message] 7593764256) The system [employer] generated this result transmitted ref erence range: 0 - 5 HP F. The reference range was not used to int erpret this result as normal/abnormal . BACTERIA (test code = Few Negative A 1743400875) SQ EPITH (test code = <1 HPF 1994303733) Lab Interpretation (test Abnormal code = 68582-1) [facility] (NA, K, CL, CO2, GLUCOSE, BUN, CREATININE, CA)2020-05-09 07:11:00 Test Item Value Reference Range Interpretation Comments NA (test code = 138 mmol/L 135-145 4440689318) K (test code = 3.7 mmol/L 3.5-5 1500502042) CL (test code = 105 mmol/L 98-108 4964620006) CO2 TOTAL (test code = 23 mmol/L 23-31 7732438509) AGAP (test code = 2-16 2075837604) BUN (test code = 14 mg/dL 7-23 6222510419) GLUCOSE (test code = 101 mg/dL 70-110 0066195224) CREATININE (test code 0.61 mg/dL 0.5-1.04 = 3094440780) CALCIUM (test code = 9.2 mg/dL 8.6-10.6 5425334906) eGFR Calculation mL/min/1.73m2 (Non-) (test code = 6437089599) eGFR Calculation mL/min/1.73m2 () (test code = 2073310757) AL (test code = AL) Association of [...] or urine or abnormalities in imaging tests). [facility] WITH [id number] 06:47:00 Test Item Value Reference Range Interpretation Comments WBC (test code = See_Comment [Automated 2980-2) message] The sy stem which generated this result transmitted reference range : 4.30 - 11.10 10*3/?L. The reference range was not used to interpret this result as normal/abnormal . RBC (test code = See_Comment L [Automated 289-8) message] The sy stem which generated this [...] RDW-SD (test code = 46.9 fL 39-49.9 16556-2) RDW-CV (test code = 16.3 % 12-15.5 H 788-0) PLT (test code = See_Comment [Automated 777-3) message] The sy stem which generated this result transmitted reference range : 166 - 358 10*3/ ?L. The reference r duane was not used to interpret this result as normal/abnormal . MPV (test code = 10.7 fL 9.5-12.9 09686-4) NRBC/100 WBC (test See_Comment [Automat ed code = 0269112949) message] The system which generated this result transmitted reference range : 0.0 - 10.0 /100 WBCs. The refer ence range was not u sed to interpret th is result as normal/abnormal . NRBC x10^3 (test code <0.01 See_Comment [Auto mated = 7606182210) message] The s ystem which generated this result transmitted reference range : 10*3/?L. The reference range was not used to interpret this result as normal/abnormal . GRAN MAT (NEUT) % 56.2 % (test code = 770-8) IMM GRAN % (test code 0.00 % = 4038705212) LYMPH % (test code = 33.9 % 736-9) MONO % (test code = 6.9 % 5905-5) EOS % (test code = 2.4 % 713-8) BASO % (test code = 0.6 % 706-2) GRAN MAT x10^3(ANC) 2.62 10*3/uL 1.88-7.09 (test code = 8291174552) IMM GRAN x10^3 (test <0.03 0-0.06 code = 5889956127) LYMPH x10^3 (test code 1.58 10*3/uL 1.32-3.29 = 731-0) MONO x10^3 (test code 0.32 10*3/uL 0.33-0.92 L = 742-7) EOS x10^3 (test code = 0.11 10*3/uL 0.03-0.39 711-2) BASO x10^3 (test code 0.03 10*3/uL 0.01-0.07 = 704-7) Lab Interpretation Abnormal (test code = 81413-1) [facility] [id number] 06:31:00 Test Item Value Reference Range Interpretation Comments POCT PREG (test code = 1605) negative On board controls acceptable with positive C Line (test code = 3574) POCT PREG LOT # (test code = 3575) [id number] POCT PREG TEST DATE (test 02/12/2021 code = 3576) Lab Interpretation (test code = Normal 89939-7) [facility]OVID[facility] (ID NOW RAPID TESTING)2019-10-02 00:40:00 Test Item Value Reference Range Interpretation Comments SARS-CoV-2 Rapid ID NOW Positive Not Detected A (test code = 24682-7) AL (test code = AL) ID NOW COVID-19 Assay is an isothermal nucleic acid amplification test intended for the qualitative detection of nucleic acid from SARS-CoV-2 viral RNA in nasopharyngeal (COMPANY PILOT) specimens. It is used under Emergency Use [...] indicated. Lab Interpretation Abnormal (test code = 45921-5) [facility]2019-09-16 22:04:00 Test Item Value Reference Range Interpretation Comments APPEARANCE (test code = Clear Clear 5715384215) COLOR (test code = Straw Yellow A 0182808498) PH (test code = 4.8-8.0 6145363599) SP GRAVITY (test code = 1.003-1.030 8833547485) GLU U QUAL (test code = Normal Normal 5876088959) BLOOD (test code = Negative Negative 7912012486) KETONES (test code = Negative Negative 2900572361) PROTEIN (test code = Negative Negative 2887-8) UROBILIN (test code = Normal Normal 3459345323) BILIRUBIN (test code = Negative Negative 5975351941) NITRITE (test code = Negative Negative 3163046082) LEUK RANJANA (test code = 25/uL Negative A 4778502568) RBC/HPF (test code = See_Comment [Autom ated message] 0334007421) The system [employer] generated this result transmitted ref erence range: 0 - 3 HP F. The reference range was not used to int erpret this result as normal/abnormal . WBC/HPF (test code = See_Comment [Autom ated message] 9108850052) The system [employer] generated this result transmitted ref erence range: 0 - 5 HP F. The reference range was not used to int erpret this result as normal/abnormal . BACTERIA (test code = Negative Negative 9881250137) SQ EPITH (test code = HPF 6891613385) Lab Interpretation (test Abnormal code = 93318-1) [facility] [id number] 21:08:00 Test Item Value Reference Range Interpretation Comments POCT PREG (test code = 1605) negative On board controls acceptable with present C Line (test code = 3574) POCT PREG LOT # (test code = 3575) [id number] POCT PREG TEST DATE (test 04-15-2020 code = 3576) Lab Interpretation (test code = Normal 68898-0) [facility]"
[2022-09-10] MEDS ORDERED: BUPIVACAINE 0.5% PF 10 ML VIAL ONE (09:34)
--- NOTE | 2022-09-10 10:31 | ER ---
Nurse's Notes [facility] Name: Joyce Mera Age: 36 yrs Sex: Female : 1985 Arrival Date: 09/10/2022 Time: 09:16 Bed 11 Private MD: Diagnosis: Felon of the right thumb Presentation: 09/10 09:27 Chief complaint: Patient states: she jammed her right thumb 2 days ago with acrylic ap3 nails on, which have since been removed. patient is complaining of pain and swelling to the right thumb, with pulsating pain. Coronavirus screen: At this time, the client does not indicate any symptoms associated with coronavirus-19. Ebola Screen: No symptoms or risks identified at this time. Initial Sepsis Screen: Does the patient meet any 2 criteria? No. Patient's initial sepsis screen is negative. Does the patient have a suspected source of infection? Yes: Skin breakdown/wound. Risk Assessment: Do you want to hurt yourself or someone else? Patient reports no desire to harm self or others. Onset of symptoms was September 08, 2022. 09:27 Method Of Arrival: Ambulatory ap3 09:27 Acuity: ALICIA 4 ap3 Triage Assessment: 09:30 General: Appears in no apparent distress. Behavior is calm, cooperative, appropriate ap3 for age. Pain: Complains of pain in right thumb Pain began 2-3 days ago. Neuro: Level of Consciousness is awake, alert, obeys commands, Oriented to person, place, time, situation. Cardiovascular: Patient's skin is warm and dry. Respiratory: Airway is patent Respiratory effort is even, unlabored, Respiratory pattern is regular, symmetrical. Derm:. Musculoskeletal: Range of motion: intact in all extremities. Musculoskeletal: Swelling present in right thumb. Injury Description: patient states she "jammed" her right thumb 2 days ago. 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 Last tetanus immunization: up to date. - Social history:: Smoking status: Reported history of juuling and/or vaping. Screenin:32 [facility] ED Fall Risk Assessment (Adult) History of falling in the last 3 months, ap3 including since admission No falls in past 3 months (0 pts). Abuse screen: Denies threats or abuse. Nutritional screening: No deficits noted. Tuberculosis screening: No symptoms or risk factors identified. Vital Signs: 09:27 BP 151 / 91; Pulse 67; Resp 17; Temp 97.8; Pulse Ox 99% ; Weight 79.38 kg; Height 5 ft. ap3 4 in. ; Pain 7/10; 09:27 Body Mass Index 30.04 (79.38 kg, 162.56 cm) ap3 09:27 Pain Scale: Adult ap3 ED Course: 09:18 Patient arrived in ED. ts1 09:22 Lalit Kasper PA is PHCP. [facility] 09:22 Shreyas Mera MD is Attending Physician. jm 09:27 Roselia Silverman, REJI is Primary Nurse. ap3 09:29 Triage completed. ap3 09:32 Arm band placed on left wrist. ap3 09:32 Patient has correct armband on for positive identification. Bed in low position. Call ap3 light in reach. Pulse ox on. NIBP on. Door closed. Noise minimized. 10:30 Yoni Le MD is Referral Physician. [facility] 10:41 No provider procedures requiring assistance completed. Patient did not have IV access ap3 during this emergency room visit. Administered Medications: 09:42 Drug: Bupivacaine Infiltration (0.5 %) 10 ml {Note: by MARKUS montesinos.} Volume: 10 ml; Route: ap3 Infiltration; 10:40 Follow up: Response: No adverse reaction ap3 Medication: 10:42 VIS not applicable for this client. ap3 Outcome: 10:30 Discharge ordered by . [facility] 10:41 Discharged to home ambulatory, with family. ap3 10:41 Condition: good 10:41 Discharge instructions given to patient, Instructed on discharge instructions, follow up and referral plans. medication usage, Demonstrated understanding of instructions, follow-up care, medications, Prescriptions given X 2. 10:42 Patient left the ED. ap3 Signatures: Lalit Kasper PA PA jmm Prokisch, Amanda, RN RN ap3 Higgins, Linda, PAS PAS ts1
--- NOTE | 2022-09-10 10:31 | EDPHYS ---
Physician Documentation [facility] Name: Joyce Mera Age: 36 yrs Sex: Female : 1985 Arrival Date: 09/10/2022 Time: 09:16 Bed 11 Private MD: Shreyas Damon HPI: 09/10 09:25 This 36 yrs old Female presents to ER via Ambulatory with complaints of Thumb Injury. jmm 09:25 Is a 36-year-old female with history of anemia, anxiety, hypertension the presents jmm emerged part with complaints of right thumb pain. Patient states swelling began after knocking it against a doorknob.. Patient states that she developed redness soon after. Patient does have a history of paronychia.. 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 Last tetanus immunization: up to date. - Social history:: Smoking status: Reported history of juuling and/or vaping. ROS: 09:25 Constitutional: Negative for fever, chills, and weight loss, Cardiovascular: Negative jmm for chest pain, palpitations, and edema, Respiratory: Negative for shortness of breath, cough, wheezing, and pleuritic chest pain. 09:25 MS/extremity: Positive for pain, swelling. 09:25 All other systems are negative. Exam: 09:25 Constitutional: This is a well developed, well nourished patient who is awake, alert, jmm and in no acute distress. Head/Face: atraumatic. Eyes: EOMI, no conjunctival erythema appreciated ENT: Moist Mucus Membranes Neck: Trachea midline, Supple Chest/axilla: Normal chest wall appearance and motion. Cardiovascular: Regular rate and rhythm. No edema appreciated Respiratory: Normal respirations, no respiratory distress appreciated Abdomen/GI: Non distended Back: Normal ROM Skin: General appearance color normal 09:25 Musculoskeletal/extremity: Swelling to the right great thumb, less than 2-second distal cap refill, compartments are soft, neurovascular intact. 09:25 Skin: Appearance: Color: normal in color, Erythema noted to the distal right thumb. 09:25 Neuro: Orientation: is normal, Mentation: is normal, Memory: is normal. 09:25 Psych: Behavior/mood is pleasant, cooperative. Vital Signs: 09:27 BP 151 / 91; Pulse 67; Resp 17; Temp 97.8; Pulse Ox 99% ; Weight 79.38 kg; Height 5 ft. ap3 4 in. ; Pain 7/10; 09:27 Body Mass Index 30.04 (79.38 kg, 162.56 cm) ap3 09:27 Pain Scale: Adult ap3 MDM: 09:25 Patient medically screened. kelly 14:19 Differential diagnosis: Felon, paronychia. Data reviewed: vital signs, nurses notes. I kelly considered the following discharge prescriptions or medication management in the emergency department Medications were administered in the Emergency Department. See MAR. Counseling: I had a detailed discussion with the patient and/or guardian regarding: the historical points, exam findings, and any diagnostic results supporting the discharge/admit diagnosis, the need for outpatient follow up, to return to the emergency department if symptoms worsen or persist or if there are any questions or concerns that arise at home. ED course: I was able to express purulent drainage by lifting the nail plate of the right thumb. The area was initially cleaned with alcohol at the base of the thumb. 4 mL 0.5% bupivacaine was injected. 2 mL on each side. Patient tolerated this well. The distal thumb was cleaned with Betadine. Scissors were used to left the nail plate. Approximately 1-2 mils of pus was expressed.. Administered Medications: 09:42 Drug: Bupivacaine Infiltration (0.5 %) 10 ml {Note: by PA. yamel} Volume: 10 ml; Route: ap3 Infiltration; 10:40 Follow up: Response: No adverse reaction ap3 Disposition Summary: 09/10/22 10:30 Discharge Ordered Location: Home kelly Condition: Stable kelly Diagnosis - Felon of the right thumb kelly Followup: kelly - With: Yoni Le MD - When: As needed - Reason: Recheck today's complaints, Continuance of care, Re-evaluation by your physician Discharge Instructions: - Discharge Summary Sheet kelly - Conner mendoza Forms: - Medication Reconciliation Form [facility] - Thank You Letter tremaine - Antibiotic Education [facility] - Prescription Opioid Use [facility] Prescriptions: - Doxycycline Hyclate 100 mg Oral Tablet - take 1 tablet by ORAL route every 12 hours; 20 tablet; Refills: 0, Product [facility] Selection Permitted - Bactrim DS 800-160 mg Oral Tablet - take 1 tablet by ORAL route every 12 hours for 10 days; 20 tablet; Refills: 0, [facility] Product Selection Permitted Signatures: Yamel Kasper PA PA jmm Prokisch, Amanda, RN RN ap3
[2022-09-10 10:51] VITALS: BP 151/91; TEMP 97.8; O2SAT 99
== END 2022-09-10 10:42 | disposition home or self-care (01) ==
LOC: ER 09:16
DX: L03.011 Cellulitis of right finger (principal)
CPT/HCPCS: 99283

== ENCOUNTER 2022-09-23 00:12 | Emergency (ER) | payer OTHER ==
--- OUTSIDE RECORDS SUMMARY | 2022-09-23 00:25 | XMS REPORT | Continuity of Care Document ---
:[address] [facility] t Address [address] [place] [address] [place] [id number] Care Team Providers Name Role Phone VIZCARRA JUAN M Primary Care Physician Unavailable Zackery Juan M Attending Clinician Unavailable RAIN CHU Attending Clinician Unavailable RAIN CHU Attending Clinician Unavailable ASHLEY KAT Attending Clinician Unavailable ASHLEY KAT Attending Clinician Unavailable Doctor Unassigned, [place] Attending Clinician Unavailable WALI CORNELL Attending Clinician Unavailable Wali Jacques Attending Clinician LUZ MARINA TAYLOR Attending Clinician Unavailable Luz Marina Taylor MD Attending Clinician [phone] JARED GALLEGOS Attending Clinician Unavailable Jared Gallegos [...] Effective Date Expiration Date Amanda rodgers [facility] [id number] 2020 CHOICE [place] STAR 00:00:00 [facility] [id number] 2020 CHIP 00:00:00 [facility] [id number] HEALTH CHOICE Problems Condition Condition Condition Status Onset Resolution Last Treating Co mments Source Name Details Category Date Date Treatment Clinician Date Coffee Coffee Disease Active [facility] ground ground [address] [facility] emesis emesis 00:00: Medical 00 Center Acute Acute Disease Active Overview: [facility] blood loss blood loss 5-05 [facility] anemia anemia 00:00: g of this Medical 00 note Center might be different from the original. In [facility] for transfer to [facility] from [facility] to [place] on for acute blood loss anemia with [...] ic instabili ty. Already received 2units at [facility] in [facility] for transfer. 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 (chronic) [place] Benign Benign Problem Common essential essential Spir it hypertensi hypertensi - CHI on on [facility] Menorrhagi Menorrhagi Problem C ommon a a Spirit - [facility] Chronic Chronic Problem Common fatigue fatigue Spirit syndrome - [facility] [id number] Other Problem Common obesity Spirit due to - CHI excess [facility] Abnormal Abnormal Problem Commo n uterine bleeding Spirit bleeding in - CHI menstrual [facility] cycle [facility] [id number] Acute pain Problem C ommon of right Spirit knee - CHI [facility] Decreased Other Problem Common blood decreased Spirit leucocyte white - [facility] number blood cell (WBC) [facility] [id number] RLS Problem Common (restless Spirit legs - CHI syndrome) [facility] [id number] Neuropathy Problem Co mmon Spirit - CHI [facility] [id number] GERD Problem Common without Spirit esophagiti - CHI s [facility] [id number] Body mass Problem Com mon index Spirit [BMI] - [facility] 34.0-34.9, [facility] [id number] Peripheral Problem Co mmon tear of Spirit medial - [facility] meniscus St of right [facility] knee as Medical current Center injury, subsequent encounter No known No known Disease Unive rs active active ity of problems problems [facility] Allergies, Adverse Reactions, Alerts Allergy Allergy Status Severity Reaction(s) Onset Inactive Treating Comm ents Source Name Type Date Date Clinician NO KNOWN Drug Active Univers ALLERGIE Class ity of S [facility] Social History Social Habit Start Date Stop Date Quantity Comments Source History of Common Spirit - Tobacco Use [facility] Alcohol intake 2022-08-14 2022-08-14 Ex-drinker [facility] 00:00:00 00:00:00 (finding) [facility] Exposure to 2022-07-22 2022-08-01 Not sure [facility]-CoV-2 00:00:00 09:07:00 [facility] (event) Branch Sex Assigned At [birth year] [facility] 00:00:00 00:00:00 Medical Center Smoking Status Start Date Stop Date Source Never smoked tobacco [facility] Medications Ordered Filled Start Stop Current Ordering Indication Dosage Frequency Signature Comments Components Source Medication Medication Date Date Medication? Clinician (SIG) Name Name norethindro Yes [id number] .35mg Take 1 Univers ne (ORTHO 4-18 tablet by itarian o f MICRONOR) 00:00: [place] 0.35 mg 00 the Medical tablet morning. Branch norethindro Yes [id number] .35mg Take 1 Univers ne (ORTHO 4-18 tablet by ity o f MICRONOR) 00:00: [place] 0.35 mg 00 the Medical tablet morning. Branch hydroCHLORO 0 Yes Univer s thiazide 25 4-14 ity of mg tablet 00:00: [place] 00 Medical Branch hydroCHLORO 2022-0 Yes Univer s thiazide 25 4-14 ity of mg tablet 00:00: [place] 00 [facility] Branch methocarbam 2021-04 Yes 500mg 500 mg, Un earlene oL 2-09 Oral, QID, ity of (ROBAXIN) 05:15: [place] tablet 500 00 on [facility] mg 03/23/22 at Branch 2315, Until Discontinu ed, Routine ibuprofen 2021-04 800mg 800 mg, Uni vers (IBU) 2-12 26-09 Oral, ity of tablet 800 05:00: 05:16 ONCE, 1 [place] mg 00 :00 dose, On Medical [place] Branch 03/23/22 at 2315, TANVIR ibuprofen 2021-04 Yes [id number] 600mg Take 1 U nivers 600 mg 2-09 tablet by ity of tablet 00:00: mouth [place] 00 every 8 Medical (eight) Branch hours as needed for Pain (scale 4-6). gabapentin 2021-04 Yes [id number] 300mg Take 1 Univers 300 mg 2-09 capsule by ity of capsule 00:00: mouth 3 00 (three) Medical times Branch daily as needed for Pain (scale 7-10). ibuprofen 2021-04 Yes [id number] 600mg Take 1 U nivers 600 mg 2-09 tablet by ity of tablet 00:00: mouth [place] 00 every 8 Medical (eight) Branch hours as needed for Pain (scale 4-6). gabapentin 2021-04 Yes [id number] 300mg Take 1 Univers 300 mg 2-09 capsule by ity of capsule 00:00: mouth 3 00 (three) Medical times Branch daily as needed for Pain (scale 7-10). ibuprofen 2021-04 Yes [id number] 600mg Take 1 U nivers 600 mg 2-09 tablet by ity of tablet 00:00: mouth [place] 00 every 8 Medical (eight) Branch hours as needed for Pain (scale 4-6). gabapentin 2021-04 Yes [id number] 300mg Take 1 Univers 300 mg 2-09 capsule by ity of capsule 00:00: mouth (three) Medical times Branch daily as needed for Pain (scale 7-10). ibuprofen 2021-04 Yes [id number] 600mg Take 1 U nivers 600 mg 2-09 tablet by ity of tablet 00:00: mouth 00 every 8 Medical (eight) Branch hours as needed for Pain (scale 4-6). gabapentin 2021-04 Yes [id number] 300mg Take 1 Univers 300 mg 2-09 capsule by ity of capsule 00:00: mouth 3 (three) Medical times Branch daily as needed for Pain (scale 7-10). methocarbam 2021-04 Yes [id number] 500mg Take 1 Univers oL 500 mg 2-08 tablet by ity o f tablet 00:00: mouth (three) Medical times Branch daily as needed for Pain (scale 7-10). methocarbam 2021-04 Yes [id number] 500mg Take 1 Univers oL 500 mg 2-08 tablet by ity o f tablet 00:00: mouth (three) Medical times Branch daily as needed for Pain (scale 7-10). methocarbam 2021-04 Yes [id number] 500mg Take 1 Univers oL 500 mg 2-08 tablet by ity o f tablet 00:00: mouth (three) Medical times Branch daily as needed for Pain (scale 7-10). methocarbam 2021-04 Yes [id number] 500mg Take 1 Univers oL 500 mg [...] 01/26/22 at 0045, TANVIR cyclobenzap 2021-04 Yes [id number] 5mg Take 1 Univers rine 5 mg 0-13 tablet by ity o f tablet 00:00: mouth in 00 the Medical morning Branch and 1 tablet at noon and 1 tablet in the evening. gabapentin 2021-04 Yes [id number] 300mg Take 1 Univers 300 mg 0-13 capsule by ity of capsule 00:00: mouth in [place] 00 the Medical morning Branch and 1 capsule at noon and 1 capsule in the evening. cyclobenzap 2021-04- No [id number] 5mg Take 1 Univers rine 5 mg 0-13 12-08 tablet by ity of tablet 00:00: 00:00 mouth in [place] 00 :00 the [facility] morning Branch and 1 tablet at noon and 1 tablet in the evening. gabapentin 2021-04- No [id number] 300mg Take 1 Univers 300 mg 0-13 12-08 capsule by ity of capsule 00:00: 00:00 mouth in [place] 00 :00 the Medical morning Branch and [...] 00:00 00 :00 Mobic 7.5 Mobic 7.5 2021-0 2021- No 1{table QD Mobic 7.5 MG MG 9-10 23- t} MG 00:00: 00:00 00 :00 Mobic 7.5 Mobic 7.5 2021-0 2021- No 1{table QD Mobic 7.5 MG MG 9-10 23-07 t} MG 00:00: 00:00 00 :00 Mobic 7.5 Mobic 7.5 2021-2021- No 1{table QD Mobic 7.5 MG MG 9-10 23-07 t} MG 00:00: 00:00 00 :00 gabapentin 2021-2021- No 600mg 600 mg, Un earlene (NEURONTIN) 715 07-15 Oral, ity of capsule 600 07:00: 06:56 ONCE, 1 [place] mg 00 :00 dose, On Medical Fri Branch 10/28/21 at 0200, TANVIR gabapentin 2021-0 Yes [id number] 600mg Take 1 Univers 600 mg 7-15 07 tablet by ity of tablet 00:00: mouth in [place] 00 the Medical morning Branch and 1 tablet in the evening. gabapentin 2021-0 Yes [id number] 600mg Take 1 Univers 600 mg 7-15 07 tablet by ity of tablet 00:00: mouth in [place] 00 the Medical morning Branch and 1 tablet in the evening. gabapentin 2021-0 2- No [id number] 600mg Take 1 Univers 600 mg 7-15 12-08 07 tablet by ity of tablet 00:00: 00:00 mouth in [place] 00 :00 the Medical morning Branch and 1 tablet in the evening. methylPREDN 2021-0 Yes [id number] Take by Univers ISolone 4-27 mouth ity of (MEDROL, 00:00: SEE-INSTRU [place] TREASURE,) 4 mg 00 CTIONS. Medica l tablets follow Branch package directions methylPREDN 2021-0 Yes [id number] Take by Univers ISolone 4-27 mouth ity of (MEDROL, 00:00: SEE-INSTRU [place] TREASURE,) 4 mg 00 CTIONS. Medica l tablets follow Branch package directions methylPREDN 2021-0 Yes [id number] Take by Univers ISolone 4-27 mouth ity of (MEDROL, 00:00: SEE-INSTRU [place] TREASURE,) 4 mg 00 CTIONS. Medica l tablets follow Branch package directions methylPREDN 2021-0 2021- No [id number] Take by Univers ISolone 4-27 12-08 mouth ity of (MEDROL, 00:00: 00:00 [place] TREASURE,) 4 mg 00 :00 CTIONS. Medica l tablets follow Branch package directions gabapentin 2021-0 2021- No [id number] 300mg Take 1 Univers 300 mg -09 09-08 capsule by ity of capsule 00:00: 04:59 mouth 3 [place] 00 :00 (three) Medical times Branch daily for 10 days. methocarbam 2021-2021- No [id number] 500mg Take 1 Univers oL 500 mg [...] 04/14/21 at 2315, TANVIR amLODIPine 2020-04 Yes [id number] 2.5mg Take 1 Univers 2.5 mg 2-30 tablet by ity of tablet 00:00: mouth at [place] [address] bedtime. Medical Branch amLODIPine 2020-04 Yes [id number] 2.5mg Take 1 Univers 2.5 mg 2-30 tablet by ity of tablet 00:00: mouth at [place] [address] bedtime. Medical Branch amLODIPine 2020-04 Yes [id number] 2.5mg Take 1 Univers 2.5 mg 2-30 tablet by ity of tablet 00:00: mouth at [place] [address] bedtime. Medical Branch amLODIPine 2020-04 Yes [id number] 2.5mg Take 1 Univers 2.5 mg 2-30 tablet by ity of tablet 00:00: mouth at [place] [address] bedtime. Medical Branch amLODIPine 2020-04 Yes [id number] 2.5mg Take 1 Univers 2.5 mg 2-30 tablet by ity of tablet 00:00: mouth at [place] [address] bedtime. Medical Branch amLODIPine 2020-04 Yes [id number] 2.5mg Take 1 Univers 2.5 mg 2-30 tablet by ity of tablet 00:00: mouth at [place] [address] bedtime. Medical Branch amLODIPine 2020-04 Yes [id number] 2.5mg Take 1 Univers 2.5 mg 2-30 tablet by ity of tablet 00:00: mouth at [place] [address] bedtime. Medical Branch amLODIPine 2020-04 Yes [id number] 2.5mg Take 1 Univers 2.5 mg 2-30 tablet by ity of tablet 00:00: mouth at [place] [address] bedtime. Medical Branch amLODIPine 2020-04 Yes [id number] 2.5mg Take 1 Univers 2.5 mg 2-30 tablet by ity of tablet 00:00: mouth at [place] [address] bedtime. Medical Branch gabapentin 2020-04- No [id number] 300mg Take 1 Univers 300 mg 2-30 -30 capsule by ity of capsule 00:00: 05:59 mouth 3 [place] 00 :00 (three) Medical times Branch daily for 30 days. gabapentin 2020-04- No [id number] 300mg Take 1 Univers 300 mg 2-30 -30 capsule by ity of capsule 00:00: 05:59 mouth 3 [place] 00 :00 (three) Medical times [place] daily for 30 days. Gladis Griffith 2020-04 No 40mg Common (Triamcinol (Triamcinol 2-07 S pirit one) one) 00:00: - CHI 00 [facility] Gladis Spangleralog 2020-04 No 40mg Common (Triamcinol (Triamcinol 2-07 S pirit one) one) 00:00: - CHI 00 [facility] Gladis Kenalog 2020-04 No 40mg Common (Triamcinol (Triamcinol 2-07 S pirit one) one) 00:00: - CHI 00 [facility] Gladis Kenalog 2020-04 No 40mg Common (Triamcinol (Triamcinol 2-07 S pirit one) one) 00:00: - CHI 00 [facility] Gladis Kenalog 2020-04 No 40mg Common (Triamcinol (Triamcinol 2-07 S pirit one) one) 00:00: - CHI 00 [facility] Gldais Kenalog 2020-04 No 40mg Common (Triamcinol (Triamcinol 2-07 S pirit one) one) 00:00: - CHI 00 [facility] Kensam Kenalog 2020-04 No 40mg Common (Triamcinol (Triamcinol 2-07 S pirit one) one) 00:00: - CHI 00 [facility] Kensam Kenalog 2020-04 No 40mg Common (Triamcinol (Triamcinol 2-07 S pirit one) one) 00:00: - CHI 00 [facility] Gladis 2020-04 No 40mg Common (Triamcinol (Triamcinol 2-07 S pirit one) one) 00:00: - CHI 00 [facility] 2020-04 No 40mg Common (Triamcinol (Triamcinol 2-07 S pirit one) one) 00:00: - CHI 00 [facility] 2020-04 No 40mg Common (Triamcinol (Triamcinol 2-07 S pirit one) one) 00:00: - CHI 00 [facility] 2020-04 No 40mg Common (Triamcinol (Triamcinol 2-07 S pirit one) one) 00:00: - CHI 00 [facility] 2020-04 No 40mg Common (Triamcinol (Triamcinol 2-07 S pirit one) one) 00:00: - CHI 00 [facility] 2020-04 No 40mg Common (Triamcinol (Triamcinol 2-07 S pirit one) one) 00:00: - CHI 00 [facility] 2020-04 No 40mg Common (Triamcinol (Triamcinol 2-07 S pirit one) one) 00:00: - CHI 00 [facility] 2020-04 No 40mg Common (Triamcinol (Triamcinol 2-07 S pirit one) one) 00:00: - CHI 00 [facility] naproxen 2020- No 500mg 500 mg, Univ ers (NAPROSYN) 05-09 01-24 Oral, ity of tablet 500 09:00: 07:59 ONCE, 1 [place] mg 00 :00 dose, [place] [facility] 05/09/20 at Branch 0300, Routine NaCl 0.9% 2020- No 1000mL at 999 Uni vers (NS) bolus 24 01-24 mL/hr, ity of infusion 08:00: 08:45 1,000 mL, [place] as 1,000 mL 00 :00 IV Medical Infusion, [place] ONCE, 1 dose, 05/09/20 at 0200, STAT naproxen 0 Yes [id number] 500mg Take 1 Univers (NAPROSYN) 1-24 100 tablet by ity of 500 mg 00:00: mouth 2 [place] tablet 00 (two) Medical times Branch daily with meals. norgestimat 0 Yes [id number] 1{tbl} Take 1 Univers e-ethinyl 1-24 100 tablet by ity o f estradioL 00:00: mouth [place] 0.25-35 00 daily. Medical mg-mcg per Branch tablet naproxen Yes [id number] 500mg Take 1 Univers (NAPROSYN) 1-24 100 tablet by ity of 500 mg 00:00: mouth 2 [place] tablet 00 (two) Medical times Branch daily with meals. norgestimat Yes [id number] 1{tbl} Take 1 Univers e-ethinyl 1-24 100 tablet by ity o f estradioL 00:00: mouth [place] 0.25-35 00 daily. Medical mg-mcg per Branch tablet naproxen Yes [id number] 500mg Take 1 Univers (NAPROSYN) 1-24 100 tablet by ity of 500 mg 00:00: mouth 2 [place] tablet 00 (two) Medical times Branch daily with meals. norgestimat Yes [id number] 1{tbl} Take 1 Univers e-ethinyl 1-24 100 tablet by ity o f estradioL 00:00: mouth [place] 0.25-35 00 daily. Medical mg-mcg per Branch tablet naproxen Yes [id number] 500mg Take 1 Univers (NAPROSYN) 1-24 100 tablet by ity of 500 mg 00:00: mouth 2 [place] tablet 00 (two) Medical times Branch daily with meals. norgestimat Yes [id number] 1{tbl} Take 1 Univers e-ethinyl 1-24 100 tablet by ity o f estradioL 00:00: mouth [place] 0.25-35 00 daily. Medical mg-mcg per Branch tablet naproxen 2020-0 Yes [id number] 500mg Take 1 Univers (NAPROSYN) 1-24 100 tablet by ity of 500 mg 00:00: mouth 2 [place] tablet 00 (two) Medical times Branch daily with meals. norgestimat Yes [id number] 1{tbl} Take 1 Univers e-ethinyl 1-24 100 tablet by ity o f estradioL 00:00: mouth [place] 0.25-35 00 daily. Medical mg-mcg per Branch tablet naproxen Yes [id number] 500mg Take 1 Univers (NAPROSYN) 1-24 100 tablet by ity of 500 mg 00:00: mouth 2 [place] tablet 00 (two) Medical [facility] daily with meals. norgestimat Yes [id number] 1{tbl} Take 1 Univers e-ethinyl 1-24 100 tablet by ity o f estradioL 00:00: mouth [place] 0.25-35 00 daily. Medical mg-mcg per Branch tablet naproxen 2021- No [id number] 500mg Take 1 Univers (NAPROSYN) 1-24 12-08 100 tablet by ity of 500 mg 00:00: 00:00 mouth 2 [place] tablet 00 :00 (two) [facility] daily with meals. norgestimat 2021- No [id number] 1{tbl} Take 1 Univers e-ethinyl 1-24 12-08 100 tablet by ity of estradioL 00:00: 00:00 mouth [place] 0.25-35 00 :00 daily. Medical mg-mcg per Branch tablet hydrOXYzine 2019- No 25mg 25 mg, Uni vers (ATARAX) 10-01 Oral, ity of tablet 25 00:45: 23:43 ONCE, 1 [place] mg 00 :00 dose, [facility] 10/01/19 at [place] 1945, TANVIR famotidine 2019- No 40mg 40 mg, Univ ers (PEPCID AC) 10-01 Oral, ity of tablet 40 00:30: 23:43 ONCE, 1 [place] mg 00 :00 dose, [facility] 10/01/19 at [place] 1930, TANVIR methylpredn 2019- No 125mg 125 mg, U nivers isolone sod 10-01 Intramuscu i ty of succ 00:30: 23:48 lar, ONCE, [place] (SOLU-MEDRO 00 :00 1 dose, Medic al L) [place] [facility] injection 10/01/19 at 125 mg 1930, STAT hydrOXYzine 2020-0 Yes [id number] 50mg Take 1 Univers (VISTARIL) 6-17 capsule by ity of 50 mg 00:00: mouth 3 [place] capsule 00 (three) Medical times Branch daily as needed for Itching. famotidine 2020-0 Yes [id number] 40mg Take 1 Univers (PEPCID) 40 6-17 tablet by ity of mg tablet 00:00: mouth [place] 00 daily. Medical Branch benzonatate 2020-0 Yes [id number] 100mg Take 1 Univers 100 mg 6-17 capsule by ity of capsule 00:00: mouth 3 [place] 00 (three) Medical times Branch daily as needed for Cough. hydrOXYzine 2020-0 Yes [id number] 50mg Take 1 Univers (VISTARIL) 6-17 capsule by ity of 50 mg 00:00: mouth 3 [place] capsule 00 (three) Medical times Branch daily as needed for Itching. famotidine 2020-0 Yes [id number] 40mg Take 1 Univers (PEPCID) 40 6-17 tablet by ity of mg tablet 00:00: mouth [place] 00 daily. Medical Branch benzonatate 2020-0 Yes [id number] 100mg Take 1 Univers 100 mg 6-17 capsule by ity of capsule 00:00: mouth 3 [place] 00 (three) Medical times Branch daily as needed for Cough. hydrOXYzine 2020-0 Yes [id number] 50mg Take 1 Univers (VISTARIL) 6-17 capsule by ity of 50 mg 00:00: mouth 3 [place] capsule 00 (three) Medical times Branch daily as needed for Itching. famotidine 2020-0 Yes [id number] 40mg Take 1 Univers (PEPCID) 40 6-17 tablet by ity of mg tablet 00:00: mouth [place] 00 daily. Medical Branch benzonatate 2020-0 Yes [id number] 100mg Take 1 Univers 100 mg 6-17 capsule by ity of capsule 00:00: mouth 3 [place] 00 (three) Medical times Branch daily as needed for Cough. hydrOXYzine 2020-0 Yes [id number] 50mg Take 1 Univers (VISTARIL) 6-17 capsule by ity of 50 mg 00:00: mouth 3 [place] capsule 00 (three) Medical times Branch daily as needed for Itching. famotidine 2020-0 Yes [id number] 40mg Take 1 Univers (PEPCID) 40 6-17 tablet by ity of mg tablet 00:00: mouth [place] 00 daily. Medical Branch benzonatate 2020-0 Yes [id number] 100mg Take 1 Univers 100 mg 6-17 capsule by ity of capsule 00:00: mouth 3 [place] 00 (three) Medical times Branch daily as needed for Cough. hydrOXYzine 2020-0 Yes [id number] 50mg Take 1 Univers (VISTARIL) 6-17 capsule by ity of 50 mg 00:00: mouth 3 [place] capsule 00 (three) Medical times Branch daily as needed for Itching. famotidine 2020-0 Yes [id number] 40mg Take 1 Univers (PEPCID) 40 6-17 tablet by ity of mg tablet 00:00: mouth [place] 00 daily. Medical Branch benzonatate 2020-0 Yes [id number] 100mg Take 1 Univers 100 mg 6-17 capsule by ity of capsule 00:00: mouth 3 [place] 00 (three) Medical times Branch daily as needed for Cough. famotidine 2020-0 Yes [id number] 40mg Take 1 Univers (PEPCID) 40 6-17 tablet by ity of mg tablet 00:00: mouth [place] 00 daily. Medical Branch hydrOXYzine 2020-0 Yes [id number] 50mg Take 1 Univers (VISTARIL) 6-17 capsule by ity of 50 mg 00:00: mouth 3 [place] capsule 00 (three) Medical times Branch daily as needed for Itching. famotidine 2020-0 Yes [id number] 40mg Take 1 Univers (PEPCID) 40 6-17 tablet by ity of mg tablet 00:00: mouth [place] 00 daily. Medical Branch famotidine 2020-0 Yes [id number] 40mg Take 1 Univers (PEPCID) 40 6-17 tablet by ity of mg tablet 00:00: mouth [place] 00 daily. Medical Branch benzonatate 2020-0 Yes [id number] 100mg Take 1 Univers 100 mg 6-17 capsule by ity of capsule 00:00: mouth 3 [place] 00 (three) Medical times Branch daily as needed for Cough. famotidine 2020-0 Yes [id number] 40mg Take 1 Univers (PEPCID) 40 6-17 tablet by ity of mg tablet 00:00: mouth [place] 00 daily. Medical Branch famotidine 2020-0 Yes [id number] 40mg Take 1 Univers (PEPCID) 40 6-17 tablet by ity of mg tablet 00:00: mouth [place] 00 daily. Medical Branch hydrOXYzine 2020-0 Yes [id number] 50mg Take 1 Univers (VISTARIL) 6-17 capsule by ity of 50 mg 00:00: mouth 3 [place] capsule 00 (three) Medical times Branch daily as needed for Itching. famotidine 2020-0 Yes [id number] 40mg Take 1 Univers (PEPCID) 40 6-17 tablet by ity of mg tablet 00:00: mouth [place] 00 daily. Medical Branch benzonatate 2020-0 Yes [id number] 100mg Take 1 Univers 100 mg 6-17 capsule by ity of capsule 00:00: mouth 3 [place] 00 (three) Medical times Branch daily as needed for Cough. hydrOXYzine 2019-0 2021- No [id number] 50mg Take 1 Univers (VISTARIL) 6-17 12-08 capsule by it y of 50 mg 00:00: 00:00 mouth 3 [place] capsule 00 :00 (three) Medical times Branch daily as needed for Itching. benzonatate 2019-0 2021- No [id number] 100mg Take 1 Univers 100 mg 6-17 [...] for Pain (scale 7-10). Gabapentin Gabapentin No 1{capsu TID Gabapentin 600 [...] thiazide 25 Othiazide MG MG 25 MG Vital Signs Vital Name Observation Time Observation Value Comments Source Systolic blood 2022-08-01 14:36:00 130 mm[Hg] Univer sity [facility] Diastolic blood 2022-08-01 14:36:00 90 [facility]Hg[facility] 2022-08-01 14:36:00 68 /min [facility] Respiratory rate 2022-08-01 14:36:00 16 /min [facility] height 2022-08-01 14:36:00 162.6 cm [facility] Body weight 2022-08-01 14:36:00 79.47 kg [facility] BMI 2022-08-01 14:36:00 30.07 kg/m2 [facility] Oxygen saturation in 2022-08-01 14:36:00 96 /min [facility] blood by [facility] Pulse oximetry Branch Systolic blood 2022-03-24 06:11:54 157 mm[Hg] Univer sity of pressure [facility] Diastolic blood 2022-03-24 06:11:54 109 mm[Hg] Unive rsity of [facility] Heart rate 2022-03-24 06:11:54 71 /min Universi ty [facility] Respiratory rate 2022-03-24 06:11:54 18 /min [facility] in 2022-03-24 06:11:54 100 /min [facility] Arterial blood by [facility] Pulse oximetry Branch Body temperature 2022-03-24 04:25:00 36.61 Jen [facility] [facility] 2022-03-24 04:25:00 162.6 cm [facility] Body weight 2022-03-24 04:25:00 86.183 kg [facility] BMI 2022-03-24 04:25:00 32.61 kg/m2 [facility] height 2022-02-28 16:30:00 63 [in_i] [facility] weight 2022-02-28 16:30:00 187.0 [lb_av] Common [facility] temperature 2022-02-28 16:30:00 97.2 [degF] [facility] bmi 2022-02-28 16:30:00 33.12 kg/m2 [facility] oximetry 2022-02-28 16:30:00 98 % [facility] respiratory rate 2022-02-28 16:30:00 18 /min Comm on [facility] blood pressure 2022-02-28 16:30:00 134 mm[Hg] Common [facility] - systolic [facility] blood pressure 2022-02-28 16:30:00 64 mm[Hg] Common [facility] - diastolic [facility] Systolic blood 2022-01-26 05:30:00 141 mm[Hg] Univer sity of [facility] Diastolic blood 2022-01-26 05:30:00 96 mm[Hg] Unive rsity of [facility] Heart rate 2022-01-26 05:30:00 91 /min Universi ty [facility] Body temperature 2022-01-26 05:30:00 36.78 Jen [facility] Res[facility] rate 2022-01-26 05:30:00 18 /min [facility] Body height 2022-01-26 05:30:00 152.4 cm Universi ty of [facility] Body weight 2022-01-26 05:30:00 86.183 kg Universi ty [facility] BMI 2022-01-26 05:30:00 37.11 kg/m2 Universi ty [facility] Oxygen saturation in 2022-01-26 05:30:00 98 /min [facility] Arterial blood by [facility] Pulse oximetry Branch height 2022-01-18 08:45:00 63 [in_i] Common [facility] weight 2022-01-18 08:45:00 192 [lb_av] Common [facility] temperature 2022-01-18 08:45:00 97.4 [degF] Common [facility] bmi 2022-01-18 08:45:00 34.01 kg/m2 Common [facility] blood pressure 2022-01-18 08:45:00 130 mm[Hg] [facility] blood pressure 2022-01-18 08:45:00 80 mm[Hg] [facility] - diastolic [facility] height 2021-12-21 10:00:00 63 [in_i] Common [facility] weight 2021-12-21 10:00:00 192 [lb_av] Common [facility] temperature 2021-12-21 10:00:00 97.8 [degF] Common [facility] bmi 2021-12-21 10:00:00 34.01 kg/m2 [facility] blood pressure 2021-12-21 10:00:00 128 mm[Hg] [facility] - systolic [facility] blood pressure 2021-12-21 10:00:00 78 mm[Hg] [facility] - diastolic [facility] Systolic blood 2021-10-28 06:27:00 174 mm[Hg] Univer sity of [facility] Diastolic blood 2021-10-28 06:27:00 119 mm[Hg] Unive rsity of pressure [facility] Heart rate 2021-10-28 06:27:00 88 /min [facility]i ty [facility] Body temperature 2021-10-28 06:27:00 36.28 Jen Univ ers[facility] Respiratory rate 2021-10-28 06:27:00 16 /min Univ ers[facility] Body height 2021-10-28 06:27:00 162.6 cm [facility] Body weight 2021-10-28 06:27:00 94.53 kg [facility] BMI 2021-10-28 06:27:00 35.77 kg/m2 [facility] [place] [facility] Oxygen saturation in 2021-10-28 06:27:00 98 /min University of Arterial blood by [facility] Pulse oximetry Branch Systolic blood 2021-08-10 20:28:00 160 mm[Hg] Univer sity of pressure [facility] [place] [facility] Diastolic blood 2021-08-10 20:28:00 108 mm[Hg] Unive rsity of pressure [facility] Heart rate 2021-08-10 20:28:00 73 /min [facility] Body temperature 2021-08-10 20:28:00 36.61 Jen [facility] [place] [facility] Respiratory rate 2021-08-10 20:28:00 17 /min Univ ers[facility] Body height 2021-08-10 20:28:00 162.6 cm [facility] Body weight 2021-08-10 20:28:00 88.905 kg [facility] BMI 2021-08-10 20:28:00 33.64 kg/m2 [facility] [place] [facility] Oxygen saturation in 2021-08-10 20:28:00 100 /min University of Arterial blood by [place] [facility] Pulse oximetry Branch Systolic blood 2021-04-26 00:45:00 148 mm[Hg] Univer sity of pressure [facility] [place] [facility] Diastolic blood 2021-04-26 00:45:00 113 mm[Hg] Unive rsity of pressure [facility] [place] [facility] Heart rate 2021-04-26 00:45:00 92 /min [facility] Body temperature 2021-04-26 00:45:00 36.11 Jen [facility] [place] [facility] Respiratory rate 2021-04-26 00:45:00 22 /min Univ ers[facility] Body height 2021-04-26 00:45:00 162.6 cm [facility] Body weight 2021-04-26 00:45:00 90.719 kg [facility] BMI 2021-04-26 00:45:00 34.33 kg/m2 [facility] [place] [facility] Oxygen saturation in 2021-04-26 00:45:00 100 /min University of Arterial blood by [place] [facility] Pulse oximetry Branch Systolic blood 2021-04-15 04:01:00 149 mm[Hg] Univer sity of pressure [facility] [place] [facility] Diastolic blood 2021-04-15 04:01:00 105 mm[Hg] Unive rsity of pressure [facility] Heart rate 2021-04-15 04:01:00 89 /min [facility] [place] [facility] Body temperature 2021-04-15 04:01:00 37.17 Jen [facility] [place] [facility] Respiratory rate 2021-04-15 04:01:00 18 /min Univ ers[facility] Body height 2021-04-15 04:01:00 162.6 cm [facility] Body weight 2021-04-15 04:01:00 90.719 kg [facility] BMI 2021-04-15 04:01:00 34.33 kg/m2 [facility] [place] [facility] Oxygen saturation in 2021-04-15 04:01:00 100 /min University of Arterial blood by [employer] ricardo Pulse oximetry Branch Systolic blood 2020-05-09 08:00:00 126 mm[Hg] Univer sity of pressure [facility] [place] [facility] Diastolic blood 2020-05-09 08:00:00 74 mm[Hg] Unive rsity of pressure [facility] [place] [facility] Heart rate 2020-05-09 08:00:00 78 /min [facility] Respiratory rate 2020-05-09 08:00:00 18 /min Univ ersity of [facility] [place] [facility] Oxygen saturation in 2020-05-09 08:00:00 99 /min University of Arterial blood by [facility] Pulse oximetry Branch Body temperature 2020-05-09 06:23:00 36.5 Jen [facility] [place] [facility] Body height 2020-05-09 06:16:00 162.6 cm [facility] [place] [facility] Body weight 2020-05-09 06:16:00 88.451 kg [facility] [place] [facility] BMI 2020-05-09 06:16:00 33.47 kg/m2 [facility] [place] [facility] Systolic blood 2020-05-09 08:00:00 126 mm[Hg] Univer sity of pressure [facility] [place] [facility] Diastolic blood 2020-05-09 08:00:00 74 mm[Hg] Unive rsity of pressure [facility] [place] [facility] Heart rate 2020-05-09 08:00:00 78 /min [facility] [place] [facility] Respiratory rate 2020-05-09 08:00:00 18 /min Univ ersity of [facility] [place] [facility] Oxygen saturation in 2020-05-09 08:00:00 99 /min University of Arterial blood by [facility] Pulse oximetry Branch Body temperature 2020-05-09 06:23:00 36.5 Jen [facility] [place] [facility] Body height 2020-05-09 06:16:00 162.6 cm [facility] [place] [facility] Body weight 2020-05-09 06:16:00 88.451 kg [facility] [place] [facility] BMI 2020-05-09 06:16:00 33.47 kg/m2 [facility] [place] [facility] Systolic blood 2019-10-01 22:46:00 172 mm[Hg] Univer sity of pressure [facility] [place] [facility] Diastolic blood 2019-10-01 22:46:00 88 mm[Hg] Unive rsity of pressure [facility] [place] [facility] Heart rate 2019-10-01 22:46:00 100 /min [facility] [place] [facility] Body temperature 2019-10-01 22:46:00 36.67 Jen [facility] [place] [facility] Respiratory rate 2019-10-01 22:46:00 16 /min Univ ers[facility] [place] [facility] Body height 2019-10-01 22:46:00 160 [...] 22:46:00 172 mm[Hg] Univer sity of pressure [facility] [place] [facility] Diastolic blood 2019-10-01 22:46:00 88 mm[Hg] Unive rsity of pressure [facility] [place] [facility] Heart rate 2019-10-01 22:46:00 100 /min [facility] [place] [facility] Body temperature 2019-10-01 22:46:00 36.67 Jen [facility] [place] [facility] Respiratory rate 2019-10-01 22:46:00 16 /min Univ ersity of [facility] [place] [facility] Body height 2019-10-01 22:46:00 160 cm [facility] Body weight 2019-10-01 22:46:00 88.451 kg [facility] BMI 2019-10-01 22:46:00 34.54 kg/m2 [facility] [place] [facility] Oxygen saturation in 2019-10-01 22:46:00 100 /min [facility] blood by [place] [facility] Pulse oximetry Branch Diastolic blood 2018-12-30 19:59:00 107 mm[Hg] Unive rsity of pressure [facility] Heart rate 2018-12-30 19:59:00 85 /min [facility] Body temperature 2018-12-30 19:59:00 37 Jen [facility] [place] [facility] Respiratory rate 2018-12-30 19:59:00 16 /min Univ [facility] Body weight 2018-12-30 19:59:00 86.183 kg [facility] BMI 2018-12-30 19:59:00 32.61 kg/m2 [facility] Oxygen saturation in 2018-12-30 19:59:00 100 /min [facility] by [place] [facility] Pulse oximetry Branch Systolic blood 2018-12-30 19:59:00 165 mm[Hg] Univer sity of pressure [facility] Diastolic blood 2018-12-30 19:59:00 107 mm[Hg] Baltazar rsity of pressure [facility] Heart rate 2018-12-30 19:59:00 85 /min [facility] Body temperature 2018-12-30 19:59:00 37 Jen [facility] Respiratory rate 2018-12-30 19:59:00 16 /min [facility] Body weight 2018-12-30 19:59:00 86.183 kg [facility] BMI 2018-12-30 19:59:00 32.61 kg/m2 [facility] Oxygen saturation in 2018-12-30 19:59:00 100 /min [facility] Arterial blood by [facility] Pulse oximetry Branch Systolic blood 2018-12-30 19:59:00 165 mm[Hg] Thao sity of pressure [facility] Procedures Procedure Date / Time Performed Performing Clinician Sourc e URINE CULTURE 2022-08-01 19:56:00 Rain Chu [facility] ASSIGNMENT OF BENEFITS 2022-08-01 14:08:22 Doctor Unassigned, No [facility] POCT URINALYSIS W/O 2022-08-01 00:00:00 Rain Chu [facility] SPECIFIC GRAVITY [facility] POCT TEST 2022-03-24 05:17:00 Wali Cornell [facility] CONSENT/REFUSAL FOR 2022-03-24 04:14:52 Doctor Unassigned, No [facility] [place] [facility] Name Medical Branch TREATMENT CONSENT/REFUSAL FOR 2022-01-26 05:28:11 Doctor Unassigned, No Un [facility] [place] DIAGNOSIS AND Name Medical Branch TREATMENT CONSENT/REFUSAL FOR 2021-10-28 06:12:45 Doctor Unassigned, No Un [facility] [place] DIAGNOSIS AND Name Medical Branch TREATMENT NOTICE OF PRIVACY 2021-08-10 20:22:03 Doctor Unassigned, No [facility] CONSENT/REFUSAL FOR 2021-08-10 20:20:00 Doctor Unassigned, No Un [facility] [place] DIAGNOSIS AND Name Medical Branch TREATMENT UT INJECTION AA&/STRD 2021-04-26 02:11:49 Chris Rodriguez [facility] N[facility]E EACH Medical Br anch BRANCH POCT TEST 2021-04-26 01:11:00 Chris Rodriguez [facility] NOTICE OF PRIVACY 2021-04-26 00:35:44 Doctor Unassigned, No [facility] CONSENT/REFUSAL FOR 2021-04-26 00:35:26 Doctor Unassigned, No Un [facility] [place] DIAGNOSIS AND Name Medical Branch TREATMENT POCT TEST 2021-04-15 04:16:00 Sarah Joel [facility] NOTICE OF PRIVACY 2021-04-15 03:49:11 Doctor Unassigned, No [facility] Name Medical Branch CONSENT/REFUSAL FOR 2021-04-15 03:42:10 Doctor Unassigned, No Un [facility] [place] DIAGNOSIS AND Name Medical Branch TREATMENT TEST, SERUM 2020-05-09 06:50:00 Faby Stone [facility] HB ABO GROUPING 2020-05-09 06:50:00 Faby Stone [facility] BASIC METABOLIC PANEL 2020-05-09 06:39:00 Faby Stone [facility] (NA, K, CL, CO2, Medical Branch GLUCOSE, BUN, CREATININE, CA) CBC WITH DIFF 2020-05-09 06:39:00 Faby Stone [facility] URINALYSIS 2020-05-09 06:39:00 Faby Stone [facility] POCT TEST 2020-05-09 06:31:00 Faby Stone [facility] NOTICE OF PRIVACY 2020-05-09 06:12:27 Doctor Unassigned, No [facility] CONSENT/REFUSAL FOR 2020-05-09 06:09:51 Doctor Unassigned, No [facility] [place] DIAGNOSIS AND Name Medical Branch TREATMENT CONSENT/REFUSAL FOR 2020-05-09 06:09:50 Doctor Unassigned, No [facility] [place] DIAGNOSIS AND Name Medical Branch TREATMENT CONSENT/REFUSAL FOR 2020-05-09 06:09:49 Doctor Unassigned, No [facility] [place] DIAGNOSIS AND Name Medical Branch TREATMENT CONSENT/REFUSAL FOR 2020-05-09 06:09:48 Doctor Unassigned, No [facility] [place] DIAGNOSIS AND Name Medical Branch TREATMENT CONSENT/REFUSAL FOR 2020-05-09 06:09:47 Doctor Unassigned, No [facility] [place] DIAGNOSIS AND Name Medical Branch TREATMENT CONSENT/REFUSAL FOR 2020-05-09 06:09:45 Doctor Unassigned, No [facility] [place] DIAGNOSIS AND Name Medical Branch TREATMENT CONSENT/REFUSAL FOR 2020-05-09 06:09:44 Doctor Unassigned, No [facility] [place] DIAGNOSIS AND Name Medical Branch TREATMENT COVID-19 (ID NOW RAPID 2019-10-01 23:52:00 Braydon Lee [facility] TESTING) Medical Branch CONSENT/REFUSAL FOR 2019-10-01 22:35:59 Doctor Unassigned, No [facility] [place] DIAGNOSIS AND Name Medical Branch TREATMENT URINALYSIS 2018-12-30 21:08:00 Myrna Myers [facility] POCT TEST 2018-12-30 21:08:00 Myrna Myers [facility] NOTICE OF PRIVACY 2018-12-30 19:33:39 Doctor Unassigned, No [facility] Name Medical Branch Plan of Care Planned Activity Planned Date Details Comments Source Future Scheduled 2022-12-[address] [facility] Test 00:00:00 (Season Ended) [code Medical Center = INFLUENZA VACCINE (Season Ended)] Future Scheduled 2022-12-[address] [facility] Test 00:00:00 (Season Ended) [code Medical Center = INFLUENZA VACCINE (Season Ended)] Future Scheduled 2022-04-[address] [facility] Test 00:00:00 (12+) [code = Medical Center DEPRESSION SCREENING (12+)] Future Scheduled 2022-04-[address] [facility] Test 00:00:00 (12+) [code = Medical Center DEPRESSION SCREENING (12+)] Future Scheduled 2007-11-[address] 00:[facility]00 [facility]) [code = 518618748] Future Scheduled 2007-11-[address] [facility] 00:00:00 [facility] cervix (procedure) [code = 136824968] Future Scheduled 2005 DTAP/TDAP/TD VACCINES [facility] 00:00:00 (1 - Tdap) [code = Medical C enter DTAP/TDAP/TD VACCINES (1 - Tdap)] Future Scheduled 2005 DTAP/TDAP/TD VACCINES [facility] Test 00:00:00 (1 - Tdap) [code = Medical C enter DTAP/TDAP/TD VACCINES (1 - Tdap)] Future Scheduled 2004 HEPATITIS C SCREENING [facility] 00:00:00 [code = HEPATITIS C Medical Center SCREENING] Future Scheduled 2004 HEPATITIS C [facility]CRE[facility]ING [facility] 00:00:00 [code = HEPATITIS C Medical Center SCREENING] Future Scheduled [address] [facility] Test 00:00:00 Counseling and Medical Cente r Screening (12+) [code = Tobacco Cessation Counseling and Screening (12+)] Future Scheduled [address] [facility] Test 00:00:00 Counseling and Medical Cente r Screening (12+) [code = Tobacco Cessation Counseling and Screening (12+)] Future Scheduled 1987-05-20 COVID-19 VACCINE (#1) [facility] 00:00:00 [code = COVID-[address] VACCINE (#1)] Future Scheduled 1987-05-20 COVID-19 VACCINE (#1) [facility] 00:00:00 [code = COVID-[address] VACCINE (#1)] Encounters Start End Encounter Admission Attending Care Care Encounter Source Date/Time Date/Time Type Type Clinicians Facility Department ID 2022-03-28 Outpatient Vizcarra, [facility] [id number] Common 10:06:03 Juan [id number] [facility] 2022-03-25 Outpatient Vizcarra, [facility] [id number] Common 10:29:00 Juan [id number] [facility] 2022-03-24 Outpatient [facility]izcarra, [facility] [id number] Common 11:51:02 Juan [id number] [facility] 2022-02-27 Outpatient Vizcarra, [facility] [id number] Common 10:44:05 Juan [id number] [facility] 2022-02-02 Outpatient Vizcarra, [facility] [id number] Common 10:37:04 Juan [id number] [facility] 2022-01-16 Outpatient Vizcarra, [facility] [id number] Common 09:19:02 Juan [facility] 2021-12-21 Outpatient Vizcarra, [facility] [id number] Common 10:09:03 Juan [id number] [facility] 2022-09-18 2022-09-18 Outpatient R RAIN CHU [facility] B [id number] [facility] 00:00:00 00:00:00 RAIN CHU [facility] 2022-09-14 2022-09-14 Outpatient AMOS KATGOOD [facility] [id number] [facility] 00:00:00 00:00:00 ASHLEY 2022-08-04 2022-08-04 Outpatient R RAIN CHU [facility] B [id number] [facility] 11:00:00 11:00:00 RAIN CHU [facility] 2022-08-04 2022-08-04 Outpatient LORI KAT [facility] [id number] [facility] 00:00:00 00:00:00 ASHLEYROSA linda of Medicin e 2022-08-01 2022-08-01 Outpatient R RAIN CHU [facility] B [id number] [facility] 09:00:00 09:58:49 RAIN CHU [facility] 2022-08-01 2022-08-01 Office KRISTAL Chu [id number] [facility] 09:00:00 09:58:49 Visit Rain MEZA [id number] it y of WOMEN'S [id number] [facility] [id number] [place] [address] Branch 2022-08-01 2022-08-01 Orders Doctor NATE [id number] Univers 00:00:00 00:00:00 Only Unassigned, MELANY [id number] [facility] [id number] Jonathan [id number] [facility] 009 Branch 2022-05-19 2022-05-19 (TEL) STLMLC STLMLC [id number] Co mmon 00:00:00 00:00:00 [facility] 2022-03-29 2022-03-29 (TEL) STLMLC STLMLC [id number] Co mmon 00:00:00 00:00:00 [facility] 2022-03-23 2022-03-24 Emergency X [facility] ERT [id number] Univers 22:30:00 00:21:00 SHINTA ity [facility] 2022-03-23 2022-03-24 Emergency [facility] [id number] Univers 22:30:00 00:21:00 Wali CALIX [id number] i ty [facility] [id number] [facility] [id number] [facility] 084 Branch 2022-03-23 2022-03-23 (TEL) STLMLC STLMLC [id number] Co mmon 00:00:00 00:00:00 [facility] 2022-02-28 2022-02-28 PREV VISIT STLMLC STLMLC [id number] Common 00:00:00 00:00:00 EST AGE [facility] 18-39 [facility] 2022-02-24 2022-02-24 (TEL) STLMLC STLMLC [id number] Co mmon 00:00:00 00:00:00 [facility] 2022-01-30 2022-01-30 (TEL) STLMLC STLMLC [id number] Co mmon 00:00:00 00:00:00 [facility] 2022-01-27 2022-01-27 (TEL) STLMLC STLMLC [id number] Co mmon 00:00:00 00:00:00 [facility] 2022-01-26 2022-01-26 Emergency X AUFDERIDE [facility] ERT [id number] Univers 00:38:00 01:14:00 , LUZ MARINA ity of [facility] 2022-01-26 2022-01-26 Emergency Aufderide [facility] [id number] Univers 00:38:00 01:14:00 , Luz Marina CALIX [id number] i ty of Maritza ASAF [id number] [facility] [id number] [place] [address] Branch 2022-01-18 2022-01-18 OFFICE STLMLC STLMLC [id number] Co mmon 00:00:00 00:00:00 VISIT EST Spir it PT LEVEL 3 - [facility] 2022-01-11 2022-01-11 (TEL) STLMLC STLMLC [id number] Co mmon 00:00:00 00:00:00 [facility] 2022-01-05 2022-01-05 (TEL) STLMLC STLMLC [id number] Co mmon 00:00:00 00:00:00 [facility] 2021-12-22 2021-12-22 (TEL) STLMLC STLMLC [id number] Co mmon 00:00:00 00:00:00 [facility] 2021-12-21 2021-12-21 OFFICE STLMLC STLMLC [id number] Co mmon 00:00:00 00:00:00 VISIT NEW Spir it PT LEVEL 3 - [facility] 2021-10-28 2021-10-28 Emergency X YARICA, [facility] ERT [id number] Univers 01:33:00 02:01:00 ZENLI ity [facility] 2021-10-28 2021-10-28 [facility] [id number] Univers 01:33:00 02:01:00 Jared VELEZANUSHKA [id number] ity of [place] [id number] [facility] [id number] [place] [address] Branch 2021-08-10 2021-08-10 Emergency X [facility] ERT [id number] Univers 15:29:00 16:34:00 OFELIA pereira [facility] 2021-08-10 2021-08-10 Emergency [facility] [id number] Univers 15:29:00 16:34:00 Ofelia CALIX [id number] i ty of [facility] 4.2.7.2.[address] [place] [id number] 2021-04-25 2021-04-25 Emergency [facility] [id number] Univers 18:47:00 20:45:00 CHRIS itarian [facility] 2021-04-25 2021-04-25 Emergency [facility] [id number] Univers 18:47:00 20:45:00 Chris CALIX [id number] i ty of [place] 4.2.7.2.[address] [place] [id number] 2021-04-14 2021-04-14 Emergency [facility] [id number] Univers 22:04:00 23:00:00 Sarah CALIX [id number] ity of [place] 4.2.7.2.[address] [place] [id number] 2021-04-14 2021-04-14 Emergency X [facility] ERT [id number] Univers 22:04:00 23:00:00 SARAH pereira [facility] 2020-05-09 2020-05-09 Emergency [facility] [id number] 00:11:00 03:03:00 Faby [place] [id number] [place] [address] [place] [address] [id number] [facility] 2020-05-09 2020-05-09 Emergency [facility] [id number] Univers 00:11:00 03:03:00 Faby Calix [id number] i ty of [place] [id number] [facility] [id number] [address] 2020-05-09 2020-05-09 Emergency X CHASE [facility] ERT [id number] Univers 00:11:00 00:11:00 FABY ity [facility] 2019-10-01 2019-10-01 Emergency Braydon Lee [facility] [id number] 17:49:15 20:06:00 Pat [place] [id number] [place] [id number] [place] [id number] [facility] 2019-10-01 2019-10-01 Emergency Braydon Lee [facility] [id number] Univers 17:49:15 20:06:00 Pat [place] [id number] i ty of [place] 4.2.7.2.6 [facility] [id number] [address] 2019-10-01 2019-10-01 Emergency X [facility] ERT [id number] [facility] 17:36[facility]00 [facility]-12-30 2018-12-30 Emergency [facility] [id number] 14:58:03 17:46:00 Myrna Acevedo [place] [id number] [place] [address] [place] [address] [phone] [facility] 2018-12-30 2018-12-30 Emergency [facility] [id number] [facility] 14:58:03 17:46:00 Myrna R [place] [id number] i ty of [place] 4.2.7.2.6 [facility] [phone] [address] Results Test Description Test Time Test Comments [...] code = 3257) positive Negative - Negative [facility] URINALYSIS W/O SPECIFIC [id number] 14:43:00 Test Item Value Reference Range Interpretation [...] code = 3257) positive Negative - Negative [facility] [id number] 05:17:00 Test Item Value Reference Range Interpretation Comments POCT PREG (test code = 1605) negative On board controls acceptable with positive C Line (test code = 3574) POCT PREG LOT # (test code = 3575) [id number] POCT PREG TEST DATE (test 07/15/2023 code = 3576) Lab Interpretation (test code = Normal 03314-8) [facility] [id number] 01:11:00 Test Item Value Reference Range Interpretation Comments POCT PREG (test code = 1605) negative On board controls acceptable with present C Line (test code = 3574) POCT PREG LOT # (test code = 3575) [id number] POCT PREG TEST DATE (test 06/13/2022 code = 3576) Lab Interpretation (test code = Normal 30477-1) [facility] [id number] 04:16:00 Test Item Value Reference Range Interpretation Comments POCT PREG (test code = 1605) neg On board controls acceptable with yes C Line (test code = 3574) POCT PREG LOT # (test code = 3575) [id number] POCT PREG TEST DATE (test 06/13/2022 code = 3576) Lab Interpretation (test code = Normal 44402-9) [facility] [id number] 07:35:00 Test Item Value Reference Range Interpretation Comments PREG SERUM (test code Negative = 4793982314) AL (test code = AL) Less than 10 IU/L. ?If low titer or ectopic is suspected, resubmit specimen in 48-72 hours. [facility] Screen - ONCE [id number] 07:34:36 Test Item Value Reference Range Interpretation Comments ABO & RH (test code O Positive Performe d at [facility] = 20) Laboratory Serv [facility] [address] [place], [place] [address]Toll Free: [phone] A No. [id number] IAT (test code = Negative Performed a t [facility] 1185) Laboratory [facility] [address] [place], [place] [id number] Free: [phone] A No. [id number] [facility] 07:28:00 Test Item Value Reference Range Interpretation Comments APPEARANCE (test code = Clear Clear 2899251055) COLOR (test code = Red Yellow A 3778713108) PH (test code = 4.8-8.0 7188427207) SP GRAVITY (test code = 1.003-1.030 L 5049673461) GLU U QUAL (test code = Normal Normal 2966437219) BLOOD (test code = 3+ Negative A 9519852217) KETONES (test code = Negative Negative 8223174631) PROTEIN (test code = 30 mg/dL Negative A 2887-8) UROBILIN (test code = Normal Normal 1215374686) BILIRUBIN (test code = Negative Negative 1471742697) NITRITE (test code = Negative Negative 5946559715) LEUK RANJANA (test code = 25/uL Negative A 8810596545) RBC/HPF (test code = See_Comment H [Autom ated message] 5037981408) The system [employer] generated this result transmitted ref erence range: 0 - 3 HP F. The reference range was not used to int erpret this result as normal/abnormal . WBC/HPF (test code = See_Comment H [Autom ated message] 0484514447) The system [employer] generated this result transmitted ref erence range: 0 - 5 HP F. The reference range was not used to int erpret this result as normal/abnormal . BACTERIA (test code = Few Negative A 6640306139) SQ EPITH (test code = <1 HPF 9398258930) Lab Interpretation (test Abnormal code = 68176-5) [facility] METABOLIC PANEL (NA, K, CL, CO2, GLUCOSE, BUN, CREATININE, CA)2020-05-09 07:11:00 Test Item Value Reference Range Interpretation Comments NA (test code = 138 mmol/L 135-145 4534212851) K (test code = 3.7 mmol/L 3.5-5 4730709185) CL (test code = 105 mmol/L 98-108 5639540473) CO2 TOTAL (test code = 23 mmol/L 23-31 0205036658) AGAP (test code = 2-16 5067917339) BUN (test code = 14 mg/dL 7-23 0288769726) GLUCOSE (test code = 101 mg/dL 70-110 5062144313) CREATININE (test code 0.61 mg/dL 0.5-1.04 = 8804324974) CALCIUM (test code = 9.2 mg/dL 8.6-10.6 4136335556) eGFR Calculation mL/min/1.73m2 (Non-) (test code = 9777330408) eGFR Calculation mL/min/1.73m2 () (test code = 8610636180) AL (test code = AL) Association of [...] or urine or abnormalities in imaging tests). [facility] WITH [id number] 06:47:00 Test Item Value Reference Range Interpretation [...] RDW-SD (test code = 46.9 fL 39-49.9 82793-6) RDW-CV (test code = 16.3 % 12-15.5 H 788-0) PLT (test code = See_Comment [Automated 777-3) message] The sy stem which generated this result transmitted reference range : 166 - 358 10*3/ ?L. The reference r duane was not used to interpret this result as normal/abnormal . MPV (test code = 10.7 fL 9.5-12.9 97071-0) NRBC/100 WBC (test See_Comment [Automat ed code = 5642319572) message] The system which generated this result transmitted reference range : 0.0 - 10.0 /100 WBCs. The refer ence range was not u sed to interpret th is result as normal/abnormal . NRBC x10^3 (test code <0.01 See_Comment [Auto mated = 2098833166) message] The s ystem which generated this result transmitted reference range : 10*3/?L. The reference range was not used to interpret this result as normal/abnormal . GRAN MAT (NEUT) % 56.2 % (test code = 770-8) IMM GRAN % (test code 0.00 % = 2995618886) LYMPH % (test code = 33.9 % 736-9) MONO % (test code = 6.9 % 5905-5) EOS % (test code = 2.4 % 713-8) BASO % (test code = 0.6 % 706-2) GRAN MAT x10^3(ANC) 2.62 10*3/uL 1.88-7.09 (test code = 9845331229) IMM GRAN x10^3 (test <0.03 0-0.06 code = 3811262667) LYMPH x10^3 (test code 1.58 10*3/uL 1.32-3.29 = 731-0) MONO x10^3 (test code 0.32 10*3/uL 0.33-0.92 L = 742-7) EOS x10^3 (test code = 0.11 10*3/uL 0.03-0.39 711-2) BASO x10^3 (test code 0.03 10*3/uL 0.01-0.07 = 704-7) Lab Interpretation Abnormal (test code = 93276-0) [facility] [id number] 06:31:00 Test Item Value Reference Range Interpretation Comments POCT PREG (test code = 1605) negative On board controls acceptable with positive C Line (test code = 3574) POCT PREG LOT # (test code = 3575) [id number] POCT PREG TEST DATE (test 02/12/2021 code = 3576) Lab Interpretation (test code = Normal 39883-2) [facility] (ID NOW RAPID TESTING)2019-10-02 00:40:00 Test Item Value Reference Range Interpretation Comments SARS-CoV-2 Rapid ID NOW Positive Not Detected A (test code = 90242-2) AL (test code = AL) ID NOW COVID-19 Assay is an isothermal nucleic acid amplification test intended for the qualitative detection of nucleic acid from SARS-CoV-2 viral RNA in nasopharyngeal (GRAINING OPERATOR) specimens. It is used under Emergency Use [...] indicated. Lab Interpretation Abnormal (test code = 08111-3) [facility]2019-09-16 22:04:00 Test Item Value Reference Range Interpretation Comments APPEARANCE (test code = Clear Clear 4058637091) COLOR (test code = Straw Yellow A 9155305498) PH (test code = 4.8-8.0 9029315352) SP GRAVITY (test code = 1.003-1.030 1389501922) GLU U QUAL (test code = Normal Normal 7566282326) BLOOD (test code = Negative Negative 8508779505) KETONES (test code = Negative Negative 3642995880) PROTEIN (test code = Negative Negative 2887-8) UROBILIN (test code = Normal Normal 1415029302) BILIRUBIN (test code = Negative Negative 5214552730) NITRITE (test code = Negative Negative 0110342471) LEUK RANJANA (test code = 25/uL Negative A 0228248765) RBC/HPF (test code = See_Comment [Autom ated message] 6062565034) The system [employer] generated this result transmitted ref erence range: 0 - 3 HP F. The reference range was not used to int erpret this result as normal/abnormal . WBC/HPF (test code = See_Comment [Autom ated message] 8330301526) The system [employer] generated this result transmitted ref erence range: 0 - 5 HP F. The reference range was not used to int erpret this result as normal/abnormal . BACTERIA (test code = Negative Negative 4223849154) SQ EPITH (test code = HPF 1787840064) Lab Interpretation (test Abnormal code = 74108-6) [facility] [id number] 21:08:00 Test Item Value Reference Range Interpretation Comments POCT PREG (test code = 1605) negative On board controls acceptable with present C Line (test code = 3574) POCT PREG LOT # (test code = 3575) [id number] POCT PREG TEST DATE (test 04-15-2020 code = 3576) Lab Interpretation (test code = Normal 33374-0) [facility]"
[2022-09-23 01:40] LABS: Absolute Lymphocytes (CBC) 1.4 K/uL (0.7-4.9); Hematocrit 22.3 % (36.0-45.0); Lymphocytes % 30.8 % (15.3-44.8); MCV 70.2 fL (80-100); RBC Red Blood Cell Count 3.17 M/uL (3.86-4.86)
[2022-09-23] MEDS ORDERED: NA CHLORIDE 0.9% 1,000 ML ONE (01:45)
[2022-09-23 01:51] LABS: Albumin 3.7 g/dL (3.4-5.0); Bilirubin Total 0.5 mg/dL (0.2-1.0); Potassium 3.6 mEq/L (3.5-5.1); Protein, Total 7.2 g/dL (6.4-8.2)
[2022-09-23 02:34] LABS: Specific Gravity 1.004 (1.005-1.030)
[2022-09-23] MEDS ORDERED: NA CHLORIDE 0.9% 500 ML ONE (02:44)
--- NOTE | 2022-09-23 05:31 | ER ---
Nurse's Notes [facility] Name: Joyce Mera Age: 36 yrs Sex: Female : 1985 Arrival Date: 09/23/2022 Time: 00:12 Bed 13 Private MD: Guy Vizcarra Diagnosis: Anemia, unspecified Presentation: 09/23 00:44 Chief complaint: Patient states: weakness,onset Sunday AM. Patient stated started her pf1 menstrual cycle on 09/21/22 with having pelvic pain of 9 and has a history of anemia and blood transfusions. Coronavirus screen: Vaccine status: Patient reports being unvaccinated. Client denies travel out of the [place] in the last 14 days. At this time, the client does not indicate any symptoms associated with coronavirus-19. Ebola Screen: Patient negative for fever greater than or equal to 101.5 degrees Fahrenheit, and additional compatible Ebola Virus Disease symptoms. Initial Sepsis Screen: Does the patient meet any 2 criteria? No. Patient's initial sepsis screen is negative. Does the patient have a suspected source of infection? No. Patient's initial sepsis screen is negative. Risk Assessment: Do you want to hurt yourself or someone else? Patient reports no desire to harm self or others. 00:44 Method Of Arrival: Ambulatory pf1 00:44 Acuity: ALICIA 3 pf1 03:32 Onset of symptoms was September 23, 2022. kd3 Triage Assessment: 03:32 General: Appears in no apparent distress. Behavior is calm, cooperative. Pain: kd3 Complains of pain in abdomen. 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 Last tetanus immunization: < 5 years ago Flu vaccine is not up to date. - Social history:: Smoking status: Patient denies any tobacco usage or history of. Patient/guardian denies using alcohol, street drugs. Screenin:33 [facility] ED Fall Risk Assessment (Adult) History of falling in the last 3 months, kd3 including since admission No falls in past 3 months (0 pts) Confusion or Disorientation No (0 pts) Intoxicated or Sedated No (0 pts) Impaired Gait No (0 pts) Mobility Assist Device Used No (0 pt) Altered Elimination No (0 pt) Score/Fall Risk Level 0 - 2 = Low Risk Maintained a safe environment. Abuse screen: Denies threats or abuse. Denies injuries from another. Nutritional screening: No deficits noted. Tuberculosis screening: No symptoms or risk factors identified. Assessment: 03:32 General: blood transfusion started. No adverse reaction in the first 15 minutes. . kd3 Neuro: Level of Consciousness is awake, alert, obeys commands, Oriented to person, place, time, situation. Respiratory: Airway is patent Trachea midline Respiratory effort is even, unlabored, Respiratory pattern is regular, symmetrical. 05:25 General: blood transfusion complete. no interaction . Neuro: Level of Consciousness is kd3 awake, alert, obeys commands, Oriented to person, place, time, situation. Cardiovascular: Patient's skin is warm and dry. Rhythm is sinus rhythm. Respiratory: Airway is patent Trachea midline Respiratory effort is even, unlabored, Respiratory pattern is regular, symmetrical. Vital Signs: 00:44 BP 148 / 100; Pulse 73; Resp 18; Temp 97.7; Pulse Ox 100% on R/A; Weight 79.38 kg; pf1 Height 5 ft. 4 in. ; Pain 9/10; 02:29 BP 145 / 97; Pulse 70; Resp 19; Pulse Ox 100% on R/A; kd3 03:32 BP 133 / 78; Pulse 75; Resp 14; Temp 98.4(TE); Pulse Ox 99% ; kd3 05:25 BP 127 / 82; Pulse 74; Resp 15; Temp 99(TE); Pulse Ox 99% on R/A; kd3 00:44 Body Mass Index 30.04 (79.38 kg, 162.56 cm) pf1 00:44 Pain Scale: Adult pf1 ED Course: 00:18 Patient arrived in ED. es 00:19 Guy Vizcarra DO is Private Physician. es 00:19 Robert Monson MD is Attending Physician. bs3 00:50 Triage completed. pf1 01:34 Inserted saline lock: 22 gauge in left antecubital area, using aseptic technique. Blood ds4 collected. Missed attempt(s): 20 gauge in right antecubital area. Bleeding controlled, band aid applied, catheter tip intact. 01:50 Test, Urine Sent. kd3 01:50 Type And Screen Sent. kd3 01:50 Comprehensive Metabolic Panel Sent. kd3 02:07 Charlotte Dotson, RN is Primary Nurse. kd3 03:32 Arm band placed on right wrist. kd3 03:33 Patient has correct armband on for positive identification. Bed in low position. kd3 05:26 No provider procedures requiring assistance completed. kd3 05:30 Guy Vizcarra DO is Referral Physician. bs3 05:58 IV discontinued, intact, bleeding controlled, No redness/swelling at site. Pressure kd3 dressing applied. Administered Medications: No medications were administered Medication: 05:26 VIS not applicable for this client. kd3 Outcome: 05:31 Discharge ordered by . bs3 05:58 Discharged to home ambulatory. kd3 05:58 Condition: stable 05:58 Discharge instructions given to patient, Instructed on discharge instructions, follow up and referral plans. Demonstrated understanding of instructions, follow-up care. 05:58 Patient left the ED. kd3 Signatures: Maureen Burris Donovan ds4 Charlotte Dotson, RN RN kd3 Robert Monson MD MD bs3 Rachel Braun RN RN pf1
--- NOTE | 2022-09-23 05:31 | EDPHYS ---
Physician Documentation [facility] Name: Joyce Mera Age: 36 yrs Sex: Female : 1985 Arrival Date: 09/23/2022 Time: 00:12 Bed 13 Private MD: Guy Vizcarra ED Physician Robert Monson HPI: 09/23 00:51 This 36 yrs old Female presents to ER via Ambulatory with complaints of bs3 General Weakness. 00:51 36yo f hx of iron deficiency anemia presents with generalized weakness. She notes that bs3 she is currently on her menses and feels weak and tired has been progressive since her last transfusion she was supposed to get iron transfusions in [place] however per the patient [facility] has been backed up and therefore unable to schedule this she denies any chest pain she does note general slight shortness of breath denies any shortness she is . 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 Last tetanus immunization: < 5 years ago Flu vaccine is not up to date. - Social history:: Smoking status: Patient denies any tobacco usage or history of. Patient/guardian denies using alcohol, street drugs. ROS: 00:51 Constitutional: Negative for fever, chills bs3 00:51 All other systems are negative. Exam: 00:51 Constitutional: This is a well developed, well nourished patient who is awake, alert, bs3 and in no acute distress. Head/Face: Normocephalic, atraumatic. Eyes: Pupils equal round and reactive to light, extra-ocular motions intact. Lids and lashes normal. ENT: mmm, no posterior phyarngeal erythema Neck: Trachea midline, no thyromegaly, no neck stiffness Chest/axilla: Normal chest wall appearance and motion. Nontender with no deformity. No lesions are appreciated. Cardiovascular: Regular rate and rhythm with a normal S1 and S2. symmetric pulses in upper extremities Respiratory: Lungs have equal breath sounds bilaterally, clear to auscultation, no respiratory distress Skin: Warm, dry with normal turgor. Normal color with no rashes, no lesions, and no evidence of cellulitis. MS/ Extremity: Pulses equal, no cyanosis. Neurovascular intact. Full, normal range of motion. Neuro: Awake and alert, GCS 15, oriented to person, place, time, and situation. Cranial nerves II-XII grossly intact. Motor strength 5/5 in all extremities. Sensory grossly intact. Psych: Awake, alert, with orientation to person, place and time. Behavior, mood, and affect are within normal limits. Vital Signs: 00:44 BP 148 / 100; Pulse 73; Resp 18; Temp 97.7; Pulse Ox 100% on R/A; Weight 79.38 kg; pf1 Height 5 ft. 4 in. ; Pain 9/10; 02:29 BP 145 / 97; Pulse 70; Resp 19; Pulse Ox 100% on R/A; kd3 03:32 BP 133 / 78; Pulse 75; Resp 14; Temp 98.4(TE); Pulse Ox 99% ; kd3 05:25 BP 127 / 82; Pulse 74; Resp 15; Temp 99(TE); Pulse Ox 99% on R/A; kd3 00:44 Body Mass Index 30.04 (79.38 kg, 162.56 cm) pf1 00:44 Pain Scale: Adult pf1 MDM: 00:19 Patient medically screened. bs3 00:51 Data reviewed: vital signs, nurses notes. ED course: Patient with generalized weakness bs3 no focal symptoms she is PE RC negative not consistent with PE, will evaluate for anemia if anemic less than 7 will transfuse we will evaluate for and electrolyte abnormality. 02:01 ED course: hgb <7, will transfuse. bs3 05:30 ED course: Patient tolerated transfusion discharged home advised follow-up with bs3 hematology and primary care. 09/23 00:49 Order name: CBC with Diff; Complete Time: 01:52 bs3 09/23 00:49 Order name: Comprehensive Metabolic Panel; Complete Time: 01:52 bs3 09/23 00:49 Order name: Type And Screen bs3 09/23 00:49 Order name: Test, Urine; Complete Time: 04:10 bs3 09/23 02:23 Order name: Packed RBC Leukored EDMS 09/23 01:53 Order name: Consent for Blood Transfusion; Complete Time: 02:29 bs3 09/23 01:53 Order name: IV Saline Lock; Complete Time: : bs3 Administered Medications: No medications were administered Disposition Summary: 09/23/22 05:31 Discharge Ordered Location: Home bs3 Problem: an acute exacerbation bs3 Symptoms: have improved bs3 Condition: Fair bs3 Diagnosis - Anemia, unspecified bs3 Followup: bs3 - With: Guy Vizcarra, DO - When: 5 - 6 days - Reason: Re-evaluation by your physician Discharge Instructions: - Discharge Summary Sheet bs3 - Anemia bs3 - Blood Transfusion, Adult bs3 Forms: - Medication Reconciliation Form bs3 - Thank You Letter bs3 - Antibiotic Education bs3 - Prescription Opioid Use bs3 Signatures: Dispatcher [employer] EDMS Larry Osman, PROCESS MANUFACTURING ENGINEER-C PROCESS MANUFACTURING ENGINEER-Cla1 Robert Monson MD MD bs3 Rachel Braun RN RN pf1
[2022-09-23 06:32] VITALS: O2SAT 99
[2022-09-23 06:34] VITALS: BP 127/82; TEMP 99
== END 2022-09-23 05:58 | disposition home or self-care (01) ==
LOC: ER 00:12
PROC: 30233N1 Transfusion of Nonautologous Red Blood Cells into Peripheral Vein, Percutaneous Approach (ICD-10-PCS; principal; 2022-09-23)
DX: D64.9 Anemia, unspecified (principal); I10 Essential (primary) hypertension
CPT/HCPCS: 85025; 36415; 86900; 86850; 81025; 86901; 86920; 80053; 99283; 36430; P9016; J7040; J7030

== ENCOUNTER 2022-10-27 18:53 | Emergency (ER) | payer OTHER ==
--- OUTSIDE RECORDS SUMMARY | 2022-10-27 18:59 | XMS REPORT | Continuity of Care Document ---
:1985 Author Organization [facility] t Address [address] [place] [address] [place] [id number] Care Team Providers Name Role Phone Zackery Guy M Primary Care Physician Guy Vizcarra Attending Clinician Unavailable RAIN CHU Attending Clinician Unavailable RAIN CHU Attending Clinician Unavailable ASHLEY KAT Attending Clinician Unavailable Doctor Unassigned, [place] Attending Clinician Unavailable WALI CORNELL Attending Clinician Unavailable Wali Jacques Attending Clinician LUZ MARINA TAYLOR Attending Clinician Unavailable Luz Marina Taylor MD Attending Clinician [phone] JARED GALLEGOS Attending Clinician Unavailable Jared Gallegos MD Attending Clinician OFELIA ESPINO Attending Clinician Unavailable Ofelia Espino DO Attending Clinician CHRIS RODRIGUEZ Attending Clinician Unavailable Chris Engle Attending Clinician Sarah Joel APN Attending Clinician SARAH JOEL Attending Clinician Unavailable Faby Fajardo Attending Clinician FABY STONE Attending Clinician Unavailable Braydon Owusu Attending Clinician Lucia SAGARMyrna Curtis Attending Clinician Payers Payer Name Policy Type Policy Number Effective Date Expiration Date Amanda rodgers [facility] [id number] 2020 CHOICE [place] STAR 00:00:00 [facility] [id number] 2020 CHIP 00:00:00 Problems Condition Condition Condition Status Onset Resolution Last Treating Co mments Source Name Details Category Date Date Treatment Clinician Date Coffee Coffee Disease Active [facility] ground ground 5-05 [facility] emesis emesis 00:00: Medical Center Acute Acute Disease Active Overview: [facility] blood loss blood loss 5-05 [facility] anemia anemia 00:00: g of this Medical 00 note Center might be different from the original. [facility] from [facility] to [place] [facility] for acute blood loss anemia with [...] received 2units at [facility]. 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 Sp ludmila blood loss anemia - [facility]I secondary [facility] blood [facility] (chronic) [place] Benign Benign Problem Common essential essential Spir it hypertensi hypertensi - CHI on on [facility] Menorrhagi Menorrhagi Problem C ommon a a Spirit - [facility] Chronic Chronic Problem Common fatigue fatigue Spirit syndrome - [facility] [id number] Other Problem Common obesity Spirit due to - [facility] excess [facility] Abnormal Abnormal Problem Commo n uterine bleeding Spirit bleeding in - CHI menstrual St cycle [facility] [id number] Acute pain Problem C ommon of right Spirit knee - CH[facility] Decreased Other Problem Common blood decreased Spirit leucocyte white - [facility] number blood cell (WBC) [facility] count [facility] [id number] RLS Problem Common (restless Spirit legs - CHI syndrome) [facility] [id number] Neuropathy Problem Co mmon Spirit - [facility] [id number] GERD Problem Common without Spirit esophagiti - CHI s [facility] [id number] Body mass Problem Com mon index Spirit [BMI] - [facility] 34.0-34.9, [facility] [id number] Peripheral Problem Co mmon tear of Spirit medial - [facility] meniscus St of right [facility] knee as Medical current Center injury, subsequent encounter No known No known Disease Unive rs active active ity of problems problems [facility] [place] Allergies, Adverse Reactions, Alerts Allergy Allergy Status Severity Reaction(s) Onset Inactive Treating Comm ents Source Name Type Date Date Clinician NO KNOWN Drug Active Univers ALLERGIE Class ity of S [facility] [place] Social History Social Habit Start Date Stop Date Quantity Comments Source History of Tobacco Common Spirit - Use [facility] Gender identity Universit y [facility] intake 2022-08-14 2022-08-14 Ex-drinker [facility] 00:00:00 00:00:00 (finding) [facility] [place] History of Social 2022-08-14 2022-08-14 Univers ity of function 00:00:00 00:00:[address] [facility] [place] Exposure to 2022-07-22 2022-08-01 Not sure [facility] SARS-CoV-2 (event) 00:00:00 09:07:[address] [facility] [place] Sex Assigned At [birth year] [facility] 00:00:00 00:00:00 Medical Center Smoking Status Start Date Stop Date Source Never smoked tobacco [facility] Medications Ordered Filled Start Stop Current Ordering Indication Dosage Frequency Signature Comments Components Source Medication Medication Date Date Medication? Clinician (SIG) Name Name norethindro Yes [id number] .35mg Take 1 Univers ne (ORTHO 4-18 tablet by ity o f MICRONOR) 00:[place] 0[place] 00 the Medical tablet morning. Branch norethindro 2022-0 Yes [id number] .35mg Take 1 Univers ne (ORTHO 4-18 tablet by ity o f MICRONOR) 00:00: [place] 0.35 mg 00 the Medical tablet morning. Branch norethindro 2022-0 Yes [id number] .35mg Take 1 Univers ne (ORTHO 4-18 tablet by ity o f MICRONOR) 00:00: [place] 0.[place] mg 00 the Medical tablet morning. Branch hydroCHLORO 2022-0 Yes Univer s thiazide 25 4-14 ity of mg tablet 00:00: [place] [facility] Branch hydroCHLORO 2022-0 Yes Univer s thiazide 25 4-14 ity of mg tablet 00:00: [place] [facility] Branch hydroCHLORO 2022-0 Yes Univer s thiazide 25 4-14 ity of mg tablet 00:00: [place] 00 [facility] Branch methocarbam 2021-04 Yes 500mg 500 mg, Un earlene oL 2-09 Oral, QID, ity of (ROBAXIN) 05:15: [place] tablet 500 00 on [facility] mg 03/23/22 at Branch 2315, Until Discontinu ed, Routine ibuprofen 2021-04- No 800mg 800 mg, Uni vers (IBU) 2-09 12-09 Oral, ity of tablet 800 05:00: 05:16 ONCE, 1 [place] mg 00 :00 dose, On Medical [place] [facility] 03/23/22 at 2315, TANVIR ibuprofen 2021-04 Yes [id number] 600mg Take 1 U nivers 600 mg 2-09 tablet by ity of tablet 00:00: mouth [place] 00 every 8 Medical (eight) Branch hours as needed for Pain (scale 4-6). gabapentin 2021-04 Yes [id number] 300mg Take 1 Univers 300 mg 2-09 capsule by ity of capsule 00:00: mouth 3 [place] 00 (three) Medical times Branch daily as needed for Pain (scale 7-10). ibuprofen 2021-04 Yes [id number] 600mg Take 1 U nivers 600 mg 2-09 tablet by ity of tablet 00:00: mouth [place] 00 every 8 Medical (eight) Branch hours as needed for Pain (scale 4-6). gabapentin 2021-04 Yes [id number] 300mg Take 1 Univers 300 mg 2-09 capsule by ity of capsule 00:00: mouth 3 (three) Medical times Branch daily as needed for Pain (scale 7-10). ibuprofen 2021-04 Yes [id number] 600mg Take 1 U nivers 600 mg 2-09 tablet by ity of tablet 00:00: mouth [place] 00 every 8 Medical (eight) Branch hours as needed for Pain (scale 4-6). gabapentin 2021-04 Yes [id number] 300mg Take 1 Univers 300 mg 2-09 capsule by ity of capsule 00:00: mouth (three) Medical times Branch daily as needed for Pain (scale 7-10). ibuprofen 2021-04 Yes [id number] 600mg Take 1 U nivers 600 mg 2-09 tablet by ity of tablet 00:00: mouth [place] 00 every 8 Medical (eight) Branch hours as needed for Pain (scale 4-6). gabapentin 2021-04 Yes [id number] 300mg Take 1 Univers 300 mg 2-09 capsule by ity of capsule 00:00: mouth (three) Medical times Branch daily as needed for Pain (scale 7-10). ibuprofen 2021-04 Yes [id number] 600mg Take 1 U nivers 600 mg 2-09 tablet by ity of tablet 00:00: mouth [place] 00 every 8 Medical (eight) Branch hours as needed for Pain (scale 4-6). gabapentin 2021-04 Yes [id number] 300mg Take 1 Univers 300 mg 2-09 capsule by ity of capsule 00:00: mouth (three) Medical times Branch daily as needed for Pain (scale 7-10). methocarbam 2021-04 Yes [id number] 500mg Take 1 Univers oL 500 mg 2-08 tablet by ity o f tablet 00:00: mouth (three) Medical times Branch daily as needed for Pain (scale 7-10). methocarbam 2021-04 Yes [id number] 500mg Take 1 Univers oL 500 mg 2-08 tablet by ity o f tablet 00:00: mouth (three) Medical times Branch daily as needed for Pain (scale 7-10). methocarbam 2021-04 Yes [id number] 500mg Take 1 Univers oL 500 mg 2-08 tablet by ity o f tablet 00:00: mouth 3 [place] 00 (three) Medical times Branch daily as needed for Pain (scale 7-10). methocarbam 2021-04 Yes [id number] 500mg Take 1 Univers oL 500 mg 2-08 tablet by ity o f tablet 00:00: mouth 3 [place] 00 (three) Medical times Branch daily as needed for Pain (scale 7-10). methocarbam 2021-04 Yes [id number] 500mg Take 1 Univers oL 500 mg 2-08 tablet by ity o f tablet 00:00: mouth 3 [place] 00 (three) Medical times Branch daily as needed for Pain (scale 7-10). ketorolac 2021-04 No 30mg 30 mg, Unive rs (TORADOL) 0-13 01-26 Intramuscu ity of injection 05:45: 05:56 lar, ONCE, [place] 30 mg 00 :00 1 dose, On Medical [place] Branch 01/26/22 at 0045, TANVIR cyclobenzap 2021-04 Yes [id number] 5mg Take 1 Univers rine 5 mg 0-13 tablet by ity o f tablet 00:00: mouth in [place] 00 the Medical morning Branch and 1 tablet at noon and 1 tablet in the evening. gabapentin 2021-04 Yes [id number] 300mg Take 1 Univers 300 mg 0-13 capsule by ity of capsule 00:00: mouth in [place] 00 the Medical morning Branch and 1 capsule at noon and 1 capsule in the evening. cyclobenzap 2021-04- No [id number] 5mg Take 1 Univers rine 5 mg 0-13 12-08 tablet by ity of tablet 00:00: 00:00 mouth in [place] 00 :00 the Medical morning Branch and 1 tablet at noon and 1 tablet in the evening. gabapentin 2021-04- No [id number] 300mg Take 1 Univers 300 mg 0-13 12-08 capsule by ity of capsule 00:00: 00:00 mouth in [place] 00 :00 the Medical morning Branch and 1 capsule at noon and 1 capsule in the evening. Mobic 7.5 Mobic 7.5 2021- No 1{table QD Mobic 7.5 MG MG 9-07 10-07 t} MG 00:00: 00:00 00 :00 Mobic 7.5 Mobic 7.5 2021-0 2- No 1{table QD Mobic 7.5 MG MG 9-10 23-07 t} MG 00:00: 00:00 00 :00 Mobic 7.5 Mobic 7.5 2021-0 2022- No 1{table QD Mobic 7.5 MG MG 9-10 23- t} MG 00:00: 00:00 00 :00 Mobic 7.5 Mobic 7.5 2021-0 2022- No 1{table QD Mobic 7.5 MG MG 9-10 23-07 t} MG 00:00: 00:00 00 :00 Mobic 7.5 Mobic 7.5 2021-0 2021- No 1{table QD Mobic 7.5 MG MG 9-10 23- t} MG 00:00: 00:00 00 :00 Mobic 7.5 Mobic 7.5 2021-0 2- No 1{table QD Mobic 7.5 MG MG -10 23- t} MG 00:00: 00:00 00 :00 gabapentin 2021-0 202- No 600mg 600 mg, Un earlene (NEURONTIN) 7-15 07-15 Oral, ity of capsule 600 07:00: 06:56 ONCE, 1 [place] mg 00 :00 dose, On [facility] Fri Branch 10/28/21 at 0200, TANVIR gabapentin 2021-0 Yes [id number] 600mg Take 1 Univers 600 mg 7-15 07 tablet by ity of tablet 00:00: mouth in [place] [address] the morning Branch and 1 tablet in the evening. gabapentin 2021-0 Yes [id number] 600mg Take 1 Univers 600 mg 7-15 07 tablet by ity of tablet 00:00: mouth in [place] 00 the morning Branch and 1 tablet in the evening. gabapentin 202-0 2022- No [id number] 600mg Take 1 Univers 600 mg 7-15 12-08 07 tablet by ity of tablet 00:00: 00:00 mouth in [place] 00 :00 the morning Branch and 1 tablet in the evening. methylPREDN 2022-0 Yes [id number] Take by [facility] ISolone 4-27 mouth ity of (MEDROL, 00:00: SEE-INSTRU [place] TREASURE,) 4 mg 00 CTIONS. Medica l tablets follow Branch package directions methylPREDN Yes [id number] Take by Univers ISolone 4-27 mouth ity of (MEDROL, 00:00: SEE-INSTRU [place] TREASURE,) 4 mg 00 CTIONS. Medica l tablets follow Branch package directions methylPREDN Yes [id number] Take by Univers ISolone 27 mouth ity of (MEDROL, 00:00: SEE-INSTRU [place] TREASURE,) 4 mg 00 CTIONS. Medica l tablets follow Branch package directions methylPREDN 2021- No [id number] Take by Univers ISolone 4-27 12-08 mouth ity of (MEDROL, 00:00: 00:00 [place] TREASURE,) 4 mg 00 :00 CTIONS. Medica l tablets follow Branch package directions gabapentin 2021- No [id number] 300mg Take 1 Univers 300 mg 08-10-08 capsule by ity of capsule 00:00: 04:59 mouth 3 [place] 00 :00 (three) Medical times Branch daily for 10 days. methocarbam 2021- No [id number] 500mg Take 1 Univers oL 500 mg 08-10 05-03 tablet by ity of tablet 00:00: 04:59 mouth 3 [place] 00 :00 (three) Medical times Branch daily [...] 04/14/21 at 2315, TANVIR amLODIPine 2020-04 Yes [id number] 2.5mg Take 1 Univers 2.5 mg 2-30 tablet by ity of tablet 00:00: mouth at [place] 00 bedtime. Medical Branch amLODIPine 2020-04 Yes [id number] 2.5mg Take 1 Univers 2.5 mg 2-30 tablet by ity of tablet 00:00: mouth at [place] [address] bedtime. Medical Branch amLODIPine 2020-04 Yes [id number] 2.5mg Take 1 Univers 2.5 mg 2-30 tablet by ity of tablet 00:00: mouth at [place] [address] bedtime. Medical Branch amLODIPine 2020-04 Yes [id number] 2.5mg Take 1 Univers 2.5 mg 2-30 tablet by ity of tablet 00:00: mouth at [place] [address] bedtime. Medical Branch amLODIPine 2020-04 Yes [id number] 2.5mg Take 1 Univers 2.5 mg 2-30 tablet by ity of tablet 00:00: mouth at [place] [address] bedtime. Medical Branch amLODIPine 2020-04 Yes [id number] 2.5mg Take 1 Univers 2.5 mg 2-30 tablet by ity of tablet 00:00: mouth at [place] [address] bedtime. Medical Branch amLODIPine 2020-04 Yes [id number] 2.5mg Take 1 Univers 2.5 mg 2-30 tablet by ity of tablet 00:00: mouth at [place] [address] bedtime. Medical Branch amLODIPine 2020-04 Yes [id number] 2.5mg Take 1 Univers 2.5 mg 2-30 tablet by ity of tablet 00:00: mouth at [place] [address] bedtime. Medical Branch amLODIPine 2020-04 Yes [id number] 2.5mg Take 1 Univers 2.5 mg 2-30 tablet by ity of tablet 00:00: mouth at [place] [address] bedtime. Medical Branch amLODIPine 2020-04 Yes [id number] 2.5mg Take 1 Univers 2.5 mg 2-30 tablet by ity of tablet 00:00: mouth at [place] [address] bedtime. Medical Branch gabapentin 2020-04- No [id number] 300mg Take 1 Univers 300 mg 2-30 01-30 capsule by ity of capsule 00:00: 05:59 mouth 3 [place] 00 :00 (three) Medical times Branch daily for 30 days. gabapentin 2020-2021- No [id number] 300mg Take 1 Univers 300 mg 2-30 01-30 capsule by ity of capsule 00:00: 05:59 mouth 3 [place] 00 :00 (three) Medical times Branch daily for 30 days. Kenalog Kenalog 2020-04 No 40mg Common (Triamcinol (Triamcinol 2-07 S pirit one) one) 00:00: - [facility]I 00 [facility] Gladis Griffith 2020-04 No 40mg Common (Triamcinol (Triamcinol 2-07 S pirit one) one) 00:00: - [facility]I 00 [facility] Gladis Griffith 2020-04 No 40mg Common (Triamcinol (Triamcinol 2-07 S pirit one) one) 00:00: - [facility]I 00 [facility] Gladis Griffith 2020-04 No 40mg Common (Triamcinol (Triamcinol 2-07 S pirit one) one) 00:00: - [facility] 00 [facility]04 No 40mg Common (Triamcinol (Triamcinol 2-07 S pirit one) one) 00:00: - [facility]I 00 [facility] Gladis Griffith 2020-04 No 40mg Common (Triamcinol (Triamcinol 2-07 S pirit one) one) 00:00: - [facility] 00 [facility] 2020-04 No 40mg Common (Triamcinol (Triamcinol 2-07 S pirit one) one) 00:00: - [facility]I 00 [facility] 2020-04 No 40mg Common (Triamcinol (Triamcinol 2-07 S pirit one) one) 00:00: - CHI 00 [facility] Gladis Griffith 2020-04 No 40mg Common (Triamcinol (Triamcinol 2-07 S pirit one) one) 00:00: - [facility]I 00 [facility] Gladis Griffith 2020-04 No 40mg Common (Triamcinol (Triamcinol 2-07 S pirit one) one) 00:00: - [facility] 00 [facility] 2020-04 No 40mg Common (Triamcinol (Triamcinol 2-07 S pirit one) one) 00:00: - [facility]I 00 [facility] Glad[facility] 2020-04 No 40mg Common (Triamcinol (Triamcinol 2-07 S pirit one) one) 00:00: - CHI 00 [facility] Gladis Spangleralog 2020-04 No 40mg Common (Triamcinol (Triamcinol 2-07 S pirit one) one) 00:00: - CHI 00 [facility] Aníbalalog Kenalog 2020-04 No 40mg Common (Triamcinol (Triamcinol 2-07 S pirit one) one) 00:00: - CHI 00 [facility] Gladis Kenalog 2020-04 No 40mg Common (Triamcinol (Triamcinol 2-07 S pirit one) one) 00:00: - CHI 00 [facility] Gladis Spangleralog 2020-04 No 40mg Common (Triamcinol (Triamcinol 2-07 S pirit one) one) 00:00: - CHI 00 [facility] naproxen 0 2020- No 500mg 500 mg, Univ ers (NAPROSYN) 1-24 01-24 Oral, ity of tablet 500 09:00: 07:59 ONCE, 1 [place] mg 00 :00 dose, [facility] 05/09/20 at Branch 0300, Routine NaCl 0.9% 2020- No 1000mL at 999 Uni vers (NS) bolus -24 01-24 mL/hr, ity of infusion 08:00: 08:45 1,000 mL, [place] 1,000 mL 00 :00 IV Medical Infusion, [place] ONCE, 1 dose, [place] 05/09/20 at 0200, STAT naproxen Yes [id number] 500mg Take 1 Univers (NAPROSYN) 1-24 100 tablet by ity of 500 mg 00:00: mouth 2 [place] tablet 00 (two) Medical times [place] daily with meals. norgestimat Yes [id number] 1{tbl} Take 1 Univers e-ethinyl 1-24 100 tablet by ity o f estradioL 00:00: mouth [place] 0.25-35 00 daily. Medical mg-mcg per Branch tablet naproxen 0 Yes [id number] 500mg Take 1 Univers (NAPROSYN) 1-24 100 tablet by ity of 500 mg 00:00: mouth 2 [place] tablet 00 (two) Medical times Branch daily with meals. norgestimat Yes [id number] 1{tbl} Take 1 Univers e-ethinyl 1-24 100 tablet by ity o f estradioL 00:00: mouth [place] 0.25-35 00 daily. Medical mg-mcg per Branch tablet naproxen Yes [id number] 500mg Take 1 Univers (NAPROSYN) 1-24 100 tablet by ity of 500 mg 00:00: mouth 2 [place] tablet 00 (two) Medical times Branch daily with meals. norgestimat Yes [id number] 1{tbl} Take 1 Univers e-ethinyl 1-24 100 tablet by ity o f estradioL 00:00: mouth [place] 0.25-35 00 daily. Medical mg-mcg per Branch tablet naproxen Yes [id number] 500mg Take 1 Univers (NAPROSYN) 1-24 100 tablet by ity of 500 mg 00:00: mouth 2 [place] tablet 00 (two) Medical times Branch daily with meals. norgestimat Yes [id number] 1{tbl} Take 1 Univers e-ethinyl 1-24 100 tablet by ity o f estradioL 00:00: mouth [place] 0.25-35 00 daily. Medical mg-mcg per Branch tablet naproxen Yes [id number] 500mg Take 1 Univers (NAPROSYN) 1-24 100 tablet by ity of 500 mg 00:00: mouth 2 [place] tablet 00 (two) Medical times Branch daily with meals. norgestimat Yes [id number] 1{tbl} Take 1 Univers e-ethinyl 1-24 100 tablet by ity o f estradioL 00:00: mouth [place] 0.25-35 00 daily. Medical mg-mcg per Branch tablet naproxen Yes [id number] 500mg Take 1 Univers (NAPROSYN) 1-24 100 tablet by ity of 500 mg 00:00: mouth 2 [place] tablet 00 (two) Medical times Branch daily with meals. norgestimat Yes [id number] 1{tbl} Take 1 Univers e-ethinyl 1-24 100 tablet by ity o f estradioL 00:00: mouth [place] 0.25-35 00 daily. Medical mg-mcg per Branch tablet naproxen 2021- No [id number] 500mg Take 1 Univers (NAPROSYN) 05-09 100 tablet by ity of 500 mg 00:00: 00:00 mouth 2 [place] tablet 00 :00 (two) Medical times Branch daily with meals. norgestimat 2021- No [id number] 1{tbl} Take 1 Univers e-ethinyl 05-09 100 tablet by ity of estradioL 00:00: 00:00 mouth [place] 0.25-35 00 :00 daily. Medical mg-mcg per Branch tablet hydrOXYzine 2020- No 25mg 25 mg, Uni vers (ATARAX) 10-01 Oral, ity of tablet 25 00:45: 23:43 ONCE, 1 [place] mg 00 :00 dose, [facility] Medical 10/01/19 at Branch 194, TANVIR famotidine 2020- No 40mg 40 mg, Univ ers (PEPCID AC) 10-01 Oral, ity of tablet 40 00:30: 23:43 ONCE, 1 [place] mg 00 :00 dose, [facility] Medical 10/01/19 at Branch 193, TANVIR methylpredn 2020- No 125mg 125 mg, U nivers isolone sod 10-01 Intramuscu i ty of succ 00:30: 23:48 lar, ONCE, [place] (SOLU-MEDRO 00 :00 1 dose, Medic al L) [facility] injection 10/01/19 at 125 mg 1929, STAT hydrOXYzine 2019-0 Yes [id number] 50mg Take 1 Univers (VISTARIL) 6-17 capsule by ity of 50 mg 00:00: mouth 3 [place] capsule 00 (three) Medical times Benge daily as needed for Itching. famotidine 2019-0 Yes [id number] 40mg Take 1 Univers (PEPCID) 40 6-17 tablet by ity of mg tablet 00:00: mouth [place] 00 daily. Medical Branch benzonatate 2019-0 Yes [id number] 100mg Take 1 Univers 100 mg 6-17 capsule by ity of capsule 00:00: mouth 3 [place] 00 (three) Medical times Benge daily as needed for Cough. hydrOXYzine 2019-0 Yes [id number] 50mg Take 1 Univers (VISTARIL) 6-17 capsule by ity of 50 mg 00:00: mouth 3 [place] capsule 00 (three) Medical times Branch daily as needed for Itching. famotidine 2020-0 Yes [id number] 40mg Take 1 Univers (PEPCID) 40 6-17 tablet by ity of mg tablet 00:00: mouth [place] 00 daily. Medical Branch benzonatate 2020-0 Yes [id number] 100mg Take 1 Univers 100 mg 6-17 capsule by ity of capsule 00:00: mouth 3 [place] 00 (three) Medical times Branch daily as needed for Cough. hydrOXYzine 2020-0 Yes [id number] 50mg Take 1 Univers (VISTARIL) 6-17 capsule by ity of 50 mg 00:00: mouth 3 [place] capsule 00 (three) Medical times Branch daily as needed for Itching. famotidine 2020-0 Yes [id number] 40mg Take 1 Univers (PEPCID) 40 6-17 tablet by ity of mg tablet 00:00: mouth [place] 00 daily. Medical Branch benzonatate 2020-0 Yes [id number] 100mg Take 1 Univers 100 mg 6-17 capsule by ity of capsule 00:00: mouth 3 [place] 00 (three) Medical times Branch daily as needed for Cough. hydrOXYzine 2020-0 Yes [id number] 50mg Take 1 Univers (VISTARIL) 6-17 capsule by ity of 50 mg 00:00: mouth 3 [place] capsule 00 (three) Medical times Branch daily as needed for Itching. famotidine 2020-0 Yes [id number] 40mg Take 1 Univers (PEPCID) 40 6-17 tablet by ity of mg tablet 00:00: mouth [place] 00 daily. Medical Branch benzonatate 2020-0 Yes [id number] 100mg Take 1 Univers 100 mg 6-17 capsule by ity of capsule 00:00: mouth 3 [place] 00 (three) Medical times Branch daily as needed for Cough. hydrOXYzine 2020-0 Yes [id number] 50mg Take 1 Univers (VISTARIL) 6-17 capsule by ity of 50 mg 00:00: mouth 3 [place] capsule 00 (three) Medical times Branch daily as needed for Itching. famotidine 2020-0 Yes [id number] 40mg Take 1 Univers (PEPCID) 40 6-17 tablet by ity of mg tablet 00:00: mouth [place] 00 daily. Medical Branch benzonatate 2020-0 Yes [id number] 100mg Take 1 Univers 100 mg 6-17 capsule by ity of capsule 00:00: mouth 3 [place] 00 (three) Medical times Branch daily as needed for Cough. famotidine 2020-0 Yes [id number] 40mg Take 1 Univers (PEPCID) 40 6-17 tablet by ity of mg tablet 00:00: mouth [place] 00 daily. Medical Branch hydrOXYzine 2020-0 Yes [id number] 50mg Take 1 Univers (VISTARIL) 6-17 capsule by ity of 50 mg 00:00: mouth 3 [place] capsule 00 (three) Medical times Branch daily as needed for Itching. famotidine 2020-0 Yes [id number] 40mg Take 1 Univers (PEPCID) 40 6-17 tablet by ity of mg tablet 00:00: mouth [place] 00 daily. Medical Branch famotidine 2020-0 Yes [id number] 40mg Take 1 Univers (PEPCID) 40 6-17 tablet by ity of mg tablet 00:00: mouth [place] 00 daily. Medical Branch benzonatate 2020-0 Yes [id number] 100mg Take 1 Univers 100 mg 6-17 capsule by ity of capsule 00:00: mouth 3 [place] 00 (three) Medical times Benge daily as needed for Cough. famotidine 2020-0 Yes [id number] 40mg Take 1 Univers (PEPCID) 40 6-17 tablet by ity of mg tablet 00:00: mouth [place] 00 daily. Medical Branch famotidine 2020-0 Yes [id number] 40mg Take 1 Univers (PEPCID) 40 6-17 tablet by ity of mg tablet 00:00: mouth [place] 00 daily. Medical Branch famotidine 2020-0 Yes [id number] 40mg Take 1 Univers (PEPCID) 40 6-17 tablet by ity of mg tablet 00:00: mouth [place] 00 daily. Medical Branch hydrOXYzine 2020-0 Yes [id number] 50mg Take 1 Univers (VISTARIL) 6-17 capsule by ity of 50 mg 00:00: mouth 3 [place] capsule 00 (three) Medical times Branch daily as needed for Itching. famotidine 2020-0 Yes [id number] 40mg Take 1 Univers (PEPCID) 40 6-17 tablet by ity of mg tablet 00:00: mouth [place] 00 daily. Medical Branch benzonatate 2019- Yes [id number] 100mg Take 1 Univers 100 mg 6-17 capsule by ity of capsule 00:00: mouth 3 [place] 00 (three) Medical times Branch daily as needed for Cough. hydrOXYzine 2021- No [id number] 50mg Take 1 Univers (VISTARIL) 6-17 12-08 capsule by it y of 50 mg 00:00: 00:00 mouth 3 [place] capsule 00 :00 (three) Medical times Branch daily as needed for Itching. benzonatate 2021- No [id number] 100mg Take 1 Univers 100 mg 6-17 [...] blood 2022-08-01 14:36:00 130 mm[Hg] Univer sity of [facility] Diastolic blood 2022-08-01 14:36:00 90 mm[Hg] [facility] rate 2022-08-01 14:36:00 68 /min [facility] Respiratory rate 2022-08-01 14:36:00 16 /min [facility] Body height 2022-08-01 14:36:00 162.6 cm [facility] Body weight 2022-08-01 14:36:00 79.47 kg [facility] BMI 2022-08-01 14:36:00 30.07 kg/m2 [facility] Oxygen saturation in 2022-08-01 14:36:00 96 /min [facility] Arterial blood by [facility] Pulse oximetry Branch Systolic blood 2022-03-24 06:11:54 157 mm[Hg] Univer sity [facility] Diastolic blood 2022-03-24 06:11:54 109 mm[Hg] [facility] Heart rate 2022-03-24 06:11:54 71 /min Universi ty [facility] Respiratory rate 2022-03-24 06:11:54 18 /min [facility] O[facility] saturation in 2022-03-24 06:11:54 100 /min University Arterial blood by [facility] Pulse oximetry Branch Body temperature 2022-03-24 04:25:00 36.61 Jen Univ ersity of [facility] [place] [place] Body height 2022-03-24 04:25:00 162.6 cm Universi ty of [facility] [place] Body weight 2022-03-24 04:25:00 86.183 kg Universi ty of [facility] [place] BMI 2022-03-24 04:25:00 32.61 kg/m2 Universi ty of [facility] [place] height 2022-02-28 16:30:00 63 [in_i] [facility] weight 2022-02-28 16:30:00 187.0 [lb_av] [facility] temperature 2022-02-28 16:30:00 97.2 [degF] [facility] bmi 2022-02-28 16:30:00 33.12 kg/m2 [facility] oximetry 2022-02-28 16:30:00 98 % [facility] respiratory rate 2022-02-28 16:30:00 18 /min Comm on [facility] blood pressure 2022-02-28 16:30:00 134 mm[Hg] Common [facility] - systolic [facility] blood pressure 2022-02-28 16:30:00 64 mm[Hg] Common [facility] diastolic [facility] Systolic blood 2022-01-26 05:30:00 141 mm[Hg] Univer sity of [facility] Diastolic blood 2022-01-26 05:30:00 96 mm[Hg] Unive rsity of [facility] Heart rate 2022-01-26 05:30:00 91 /min Universi ty of [facility] [place] Body temperature 2022-01-26 05:30:00 36.78 Jen Univ ersity [facility] Respiratory rate 2022-01-26 05:30:00 18 /min Univ ersity [facility] Body height 2022-01-26 05:30:00 152.4 cm Universi ty of [facility] [place] Body weight 2022-01-26 05:30:00 86.183 kg Universi ty of [facility] [place] BMI 2022-01-26 05:30:00 37.11 kg/m2 Universi ty [facility] Oxygen saturation in 2022-01-26 05:30:00 98 /min University Arterial blood by [facility] Pulse oximetry Branch height 2022-01-18 08:45:00 63 [in_i] Common [facility] weight 2022-01-18 08:45:00 192 [lb_av] Common [facility] temperature 2022-01-18 08:45:00 97.4 [degF] Common [facility] bmi 2022-01-18 08:45:00 34.01 kg/m2 [facility] blood pressure 2022-01-18 08:45:00 130 mm[Hg] [facility] blood pressure 2022-01-18 08:45:00 80 mm[Hg] [facility] height 2021-12-21 10:00:00 63 [in_i] Common [facility] weight 2021-12-21 10:00:00 192 [lb_av] [facility] temperature 2021-12-21 10:00:00 97.8 [degF] [facility] bmi 2021-12-21 10:00:00 34.01 kg/m2 [facility] blood pressure 2021-12-21 10:00:00 128 mm[Hg] [facility] - systolic [facility] blood pressure 2021-12-21 10:00:00 78 mm[Hg] [facility] - diastolic [facility] Systolic blood 2021-10-28 06:27:00 174 mm[Hg] Univer sity of [facility] Diastolic blood 2021-10-28 06:27:00 119 mm[Hg] Unive rsity of [facility] Heart rate 2021-10-28 06:27:00 88 /min Universi ty of [facility] [place] Body temperature 2021-10-28 06:27:00 36.28 Jen Univ ersity [facility] Respiratory rate 2021-10-28 06:27:00 16 /min Univ ersity of [place] [facility] Body height 2021-10-28 06:27:00 162.6 cm Universi ty of [place] [facility] Body weight 2021-10-28 06:27:00 94.53 kg Universi ty [facility] [place] [facility] BMI 2021-10-28 06:27:00 35.77 kg/m2 Universi ty of [place] [facility] Oxygen saturation in 2021-10-28 06:27:00 98 /min University of Arterial blood by [facility] ricardo Pulse oximetry Branch Systolic blood 2021-08-10 20:28:00 160 mm[Hg] Univer sity of pressure [place] [facility] Diastolic blood 2021-08-10 20:28:00 108 mm[Hg] Unive rsity of pressure [place] [facility] Heart rate 2021-08-10 20:28:00 73 /min Universi ty of [place] [facility] Body temperature 2021-08-10 20:28:00 36.61 Jen Univ ersity of [place] [facility] Respiratory rate 2021-08-10 20:28:00 17 /min Univ ersity of [place] [facility] Body height 2021-08-10 20:28:00 162.6 cm Universi ty [facility] [place] [facility] Body weight 2021-08-10 20:28:00 88.905 kg Universi ty [facility] [place] [facility] BMI 2021-08-10 20:28:00 33.64 kg/m2 Universi ty of [place] [facility] Oxygen saturation in 2021-08-10 20:28:00 100 /min University of Arterial blood by [facility] ricardo Pulse oximetry Branch Systolic blood 2021-04-26 00:45:00 148 mm[Hg] Univer sity of pressure [place] [facility] Diastolic blood 2021-04-26 00:45:00 113 mm[Hg] Unive rsity of pressure [place] [facility] Heart rate 2021-04-26 00:45:00 92 /min Universi ty of [place] [facility] Body temperature 2021-04-26 00:45:00 36.11 Jen Univ ersity of [place] [facility] Respiratory rate 2021-04-26 00:45:00 22 /min Univ ersity of [place] [facility] Body height 2021-04-26 00:45:00 162.6 cm Universi ty [facility] [place] [facility] Body weight 2021-04-26 00:45:00 90.719 kg Universi ty [facility] [place] [facility] BMI 2021-04-26 00:45:00 34.33 kg/m2 Universi ty of [place] [facility] Oxygen saturation in 2021-04-26 00:45:00 100 /min University of Arterial blood by [facility] Pulse oximetry Branch Systolic blood 2021-04-15 04:01:00 149 mm[Hg] Univer sity of pressure [place] [facility] Diastolic blood 2021-04-15 04:01:00 105 mm[Hg] Unive rsity of pressure [place] [facility] Heart rate 2021-04-15 04:01:00 89 /min Universi ty of [place] [facility] Body temperature 2021-04-15 04:01:00 37.17 Jen Univ ersity of [place] [facility] Respiratory rate 2021-04-15 04:01:00 18 /min Univ ersity of [place] [facility] Body height 2021-04-15 04:01:00 162.6 cm Universi ty [facility] [place] [facility] Body weight 2021-04-15 04:01:00 90.719 kg Universi ty of [place] [facility] BMI 2021-04-15 04:01:00 34.33 kg/m2 Universi ty of [place] [facility] Oxygen saturation in 2021-04-15 04:01:00 100 /min University of Arterial blood by [facility] Pulse oximetry Branch Systolic blood 2020-05-09 08:00:00 126 mm[Hg] Univer sity of pressure [place] [facility] Diastolic blood 2020-05-09 08:00:00 74 mm[Hg] Unive rsity of pressure [place] [facility] Heart rate 2020-05-09 08:00:00 78 /min Universi ty of [place] [facility] Respiratory rate 2020-05-09 08:00:00 18 /min Univ ersity of [place] [facility] Oxygen saturation in 2020-05-09 08:00:00 99 /min University of Arterial blood by [facility] Pulse oximetry Branch Body temperature 2020-05-09 06:23:00 36.5 Jen Univ ersity of [place] [facility] Body height 2020-05-09 06:16:00 162.6 cm Universi ty of [place] [facility] Body weight 2020-05-09 06:16:00 88.451 kg Universi ty of [place] [facility] BMI 2020-05-09 06:16:00 33.47 kg/m2 Universi ty [facility] [place] [facility] Systolic blood 2020-05-09 08:00:00 126 mm[Hg] Univer sity of pressure [place] [facility] Diastolic blood 2020-05-09 08:00:00 74 mm[Hg] Unive rsity of pressure [place] [facility] Heart rate 2020-05-09 08:00:00 78 /min Universi ty of [place] [facility] Respiratory rate 2020-05-09 08:00:00 18 /min Univ ersity of [place] [facility] Oxygen saturation in 2020-05-09 08:00:00 99 /min University of Arterial blood by [place] [facility] ricardo Pulse oximetry Branch Body temperature 2020-05-09 06:23:00 36.5 Jen Univ ersity of [place] [facility] Body height 2020-05-09 06:16:00 162.6 cm Universi ty [facility] [place] [facility] Body weight 2020-05-09 06:16:00 88.451 kg Universi ty [facility] [place] [facility] BMI 2020-05-09 06:16:00 33.47 kg/m2 Universi ty [facility] [place] [facility] Systolic blood 2019-10-01 22:46:00 172 mm[Hg] Univer sity of pressure [place] [facility] Diastolic blood 2019-10-01 22:46:00 88 mm[Hg] Unive rsity of pressure [place] [facility] Heart rate 2019-10-01 22:46:00 100 /min Universi ty of [place] [facility] Body temperature 2019-10-01 22:46:00 36.67 Jen Univ ersity of [place] [facility] Respiratory rate 2019-10-01 22:46:00 16 /min Univ ersity of [place] [facility] Body height 2019-10-01 22:46:00 160 cm Universi ty [facility] [place] [facility] Body weight 2019-10-01 22:46:00 88.451 kg Universi ty [facility] [place] [facility] BMI 2019-10-01 22:46:00 34.54 kg/m2 Universi ty of [place] [facility] Oxygen saturation in 2019-10-01 22:46:00 100 /min University of Arterial blood by [place] Medi ricardo Pulse oximetry Branch Systolic blood 2019-10-01 22:46:00 172 mm[Hg] Univer sity of pressure [place] [facility] Diastolic blood 2019-10-01 22:46:00 88 mm[Hg] Unive rsity of pressure [place] [facility] Heart rate 2019-10-01 22:46:00 100 /min Universi ty [facility] [place] [facility] Body temperature 2019-10-01 22:46:00 36.67 Jen Univ ersity of [place] [facility] Respiratory rate 2019-10-01 22:46:00 16 /min Univ ersity of [place] [facility] Body height 2019-10-01 22:46:00 160 cm Universi ty [facility] [place] [facility] Body weight 2019-10-01 22:46:00 88.451 kg Universi ty [facility] [place] [facility] BMI 2019-10-01 22:46:00 34.54 kg/m2 Universi ty [facility] [place] [facility] Oxygen saturation in 2019-10-01 22:46:00 100 /min University of Arterial blood by [facility] Pulse oximetry Branch Diastolic blood 2018-12-30 19:59:00 107 mm[Hg] Unive rsity of pressure [place] [facility] Heart rate 2018-12-30 19:59:00 85 /min Universi ty [facility] [place] [facility] Body temperature 2018-12-30 19:59:00 37 Jen Univ ersity of [place] [facility] Respiratory rate 2018-12-30 19:59:00 16 /min Univ ersity of [place] [facility] Body weight 2018-12-30 19:59:00 86.183 kg Universi ty [facility] [place] [facility] BMI 2018-12-30 19:59:00 32.61 kg/m2 Universi ty [facility] [place] [facility] Oxygen saturation in 2018-12-30 19:59:00 100 /min University of Arterial blood by [facility] Pulse oximetry Branch Systolic blood 2018-12-30 19:59:00 165 mm[Hg] Univer sity of pressure [place] [facility] Diastolic blood 2018-12-30 19:59:00 107 mm[Hg] Unive rsity of pressure [place] [facility] Heart rate 2018-12-30 19:59:00 85 /min Universi ty [facility] [place] [facility] Body temperature 2018-12-30 19:59:00 37 Jen Univ ersity [facility] [place] [facility] Respiratory rate 2018-12-30 19:59:00 16 /min Univ ersity of [place] [facility] Body weight 2018-12-30 19:59:00 86.183 kg Universi ty [facility] [place] [facility] BMI 2018-12-30 19:59:00 32.61 kg/m2 Universi ty of [place] [facility] Oxygen saturation in 2018-12-30 19:59:00 100 /min [facility] Arterial blood by [facility] Pulse oximetry Branch Systolic blood 2018-12-30 19:59:00 165 mm[Hg] Thao sity of [facility] [place] [facility] Procedures Procedure Date / Time Performed Performing Clinician Sourc e URINE CULTURE 2022-08-01 19:56:00 Rain Chu [facility] ASSIGNMENT OF BENEFITS 2022-08-01 14:08:22 Doctor Unassigned, No [facility] Name Medical Branch POCT URINALYSIS W/O 2022-08-01 00:00:[address] [facility] SPECIFIC GRAVITY Medical Branch POCT TEST 2022-03-24 05:17:00 Wali Cornell [facility] CONSENT/REFUSAL FOR 2022-03-24 04:14:52 Doctor Unassigned, No [facility] [place] [facility] Name Medical Branch TREATMENT CONSENT/REFUSAL FOR 2022-01-26 05:28:11 Doctor Unassigned, No Un [facility]ity [facility] [place] [facility] AND Name Medical Branch TREATMENT CONSENT/REFUSAL FOR 2021-10-28 06:12:45 Doctor Unassigned, No Un [facility] [place] DI[facility]NOSIS AND Name Medical Branch TREATMENT NOTICE OF PRIVACY 2021-08-10 20:22:03 Doctor Unassigned, No [facility] CONSENT/REFUSAL FOR 2021-08-10 20:20:00 Doctor Unassigned, No Un [facility]ity [facility] [place] DI[facility] AND Name Medical Branch TREATMENT LA INJECTION AA&/STRD 2021-04-26 02:11:49 [facility] [place] [facility] TRIGEMINAL NERVE EACH Medical Br anch BRANCH POCT TEST 2021-04-26 01:11:00 Chris Rodriguez [facility] Medical Branch NOTICE OF PRIVACY 2021-04-26 00:35:44 Doctor Unassigned, No [facility] [place] [facility] Name Medical Branch CONSENT/REFUSAL FOR 2021-04-26 00:35:26 Doctor Unassigned, No Un [facility] [place] DIAGNOSIS AND Name Medical Branch TREATMENT POCT TEST 2021-04-15 04:16:[address] [facility] NOTICE OF PRIVACY 2021-04-15 03:49:11 Doctor Unassigned, No Univ ersity [facility] [place] [facility] Name Medical Branch CONSENT/REFUSAL FOR 2021-04-15 03:42:10 Doctor Unassigned, No Un [facility] [place] DIAGNOSIS AND Name Medical Branch TREATMENT TEST, SERUM 2020-05-09 06:50:00 Faby Stone [facility] HB ABO GROUPING 2020-05-09 06:50:00 Faby Stone [facility] BASIC METABOLIC PANEL 2020-05-09 06:39:00 Faby Stone [facility] (NA, K, CL, CO2, Medical Branch GLUCOSE, BUN, CREATININE, CA) CBC WITH DIFF 2020-05-09 06:39:00 Chase [facility] URINALYSIS 2020-05-09 06:39:00 Chase [facility] POCT TEST 2020-05-09 06:31:00 Faby Stone [facility] NOTICE OF PRIVACY 2020-05-09 06:12:27 Doctor Unassigned, No Univ ersity [facility] [place] [facility] Name Medical Branch CONSENT/REFUSAL FOR 2020-05-09 06:09:51 Doctor Unassigned, No Un [facility] [place] DIAGNOSIS AND Name Medical Branch TREATMENT CONSENT/REFUSAL FOR 2020-05-09 06:09:50 Doctor Unassigned, No [facility] [place] DIAGNOSIS AND Name Medical Branch TREATMENT CONSENT/REFUSAL FOR 2020-05-09 06:09:49 Doctor Unassigned, No Un iversity of [place] DIAGNOSIS AND Name Medical Branch TREATMENT CONSENT/REFUSAL FOR 2020-05-09 06:09:48 Doctor Unassigned, No [facility] [place] DIAGNOSIS AND Name Medical Branch TREATMENT CONSENT/REFUSAL [...] (ID NOW RAPID 2019-10-01 23:52:00 Braydon Lee [facility] TESTING) Medical Branch CONSENT/REFUSAL FOR 2019-10-01 22:35:59 Doctor Unassigned, No [facility] Name Medical Branch TREATMENT URINALYSIS 2018-12-30 21:08:00 Myrna Myers [facility] POCT TEST 2018-12-30 21:08:00 Myrna Myers [facility] NOTICE OF PRIVACY 2018-12-30 19:33:39 Doctor Unassigned, No 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 2022-03-28 Outpatient Vizcarra, STLC STLC [id number] Common 10:06:[address] [facility] 2022-03-25 Outpatient Vizcarra, STLMLC STLC [id number] Common 10:29:[address] [facility] 2022-03-24 Outpatient Vizcarra, STLC STLC [id number] Common 11:51:[address] [facility] 2022-02-27 Outpatient Vizcarra, STLMLC STLC [id number] Common 10:44:[address] [facility] 2022-02-02 Outpatient Vizcarra, STLC STLC [id number] Common 10:37:[address] [facility] 2022-01-16 Outpatient Vizacrra, STLC [facility] [id number] Common 09:19:[address] [facility] 2021-12-21 Outpatient GENO Vizcarra [facility] [id number] Common 10:09:[address] [facility] 2022-10-26 2022-10-26 Outpatient R DERECKKRZYSZTOF [facility]IN [facility] B [id number] Univers 12:39:42 23:59:00 RAIN CHU [facility] 2022-10-26 2022-10-26 [facility] [id number] Univers 12:39:42 23:59:00 Encounter Rain CALIX [id number] ity of [facility] [id number] [facility] [id number] [facility] 806 Branch 2022-09-18 2022-09-18 Outpatient R RAIN CHU [facility] B [id number] Univers 00:00:00 00:00:00 RAIN CHU [facility] 2022-09-14 2022-09-14 Outpatient SHEY, [facility] [id number] SLE 00:00:00 00:00:00 ASHLEY 2022-08-04 2022-08-04 Outpatient R RAIN CHU [facility] B [id number] Univers 11:00:00 11:00:00 RAIN CHU [facility] 2022-08-01 2022-08-01 Outpatient R RAIN CHU [facility] B [id number] Univers 09:00:00 09:58:49 RAIN CHU [facility] 2022-08-01 2022-08-01 Office Aundrea [facility] [id number] Univers 09:00:00 09:58:49 Visit Rain MEZA [id number] it y of WOM[facility]'S [id number] [facility] [id number] [facility] CLINIC 134 Branch 2022-08-01 2022-08-01 Orders Doctor NATE [id number] Univers 00:00:00 00:00:00 Only Unassigned, MELANY [id number] ity of [facility] [id number] [facility] [id number] [facility] 009 Branch 2022-05-19 2022-05-19 (TEL) STLMLC STLMLC [id number] Co mmon 00:00:00 00:00:[address] [facility] 2022-03-29 2022-03-29 (TEL) STLMLC STLMLC [id number] Co mmon 00:00:00 00:00:[address] [facility] 2022-03-23 2022-03-24 Emergency X [facility] ERT [id number] Univers 22:30:00 00:21:00 WALI itarian [facility] 2022-03-23 2022-03-24 [facility] [id number] Univers 22:30:00 00:21:00 Wali CALIX [id number] i ty [facility] [id number] [facility] [id number] [facility] 084 Branch 2022-03-23 2022-03-23 (TEL) STLMLC STLMLC [id number] Co mmon 00:00:00 00:00:[address] [facility] 2022-02-28 2022-02-28 PREV VISIT STLMLC STLMLC [id number] Common 00:00:00 00:00:00 EST AGE [facility] 18-39 - [facility] 2022-02-24 2022-02-24 (TEL) STLMLC STLMLC [id number] Co mmon 00:00:00 00:00:[address] [facility] 2022-01-30 2022-01-30 (TEL) STLMLC STLMLC [id number] Co mmon 00:00:00 00:00:[address] [facility] 2022-01-27 2022-01-27 (TEL) STLMLC STLMLC [id number] Co mmon 00:00:00 00:00:[address] [facility] 2022-01-26 2022-01-26 Emergency [facility] [id number] Univers 00:38:00 01:14:00 , LUZ MARINA ity of [facility] [place] [place] 2022-01-26 2022-01-26 Emergency [facility] [id number] Univers 00:38:00 01:14:00 , Luz Marina CALIX [id number] i ty of [place] ASAF [id number] [facility] [id number] [address] 2022-01-18 2022-01-18 OFFICE STLMLC STLMLC [id number] Co mmon 00:00:00 00:00:00 VISIT EST Spir it PT LEVEL 3 [facility] 2022-01-11 2022-01-11 (TEL) STLMLC STLMLC [id number] Co mmon 00:00:00 00:00:[address] [facility] 2022-01-05 2022-01-05 (TEL) STLMLC STLMLC [id number] Co mmon 00:00:00 00:00:[address] [facility] 2021-12-22 2021-12-22 (TEL) STLMLC STLMLC [id number] Co mmon 00:00:00 00:00:[address] [facility] 2021-12-21 2021-12-21 OFFICE STLMLC STLMLC [id number] Co mmon 00:00:00 00:00:00 VISIT NEW Spir it PT LEVEL 3 [facility] 2021-10-28 2021-10-28 Emergency X YAREPLACED BY [facility], [facility] ERT [id number] Univers 01:33:00 02:01:00 JARED weissy [facility] 2021-10-28 2021-10-28 Emergency YaFormerly [facility] [id number] Univers 01:33:00 02:01:00 Liasjana Patel FIFI [id number] ity of [place] [id number] [facility] [id number] [address] 2021-08-10 2021-08-10 Emergency X , [facility] ERT [id number] Univers 15:29:00 16:34:00 OFELIA pereira [facility] 2021-08-10 2021-08-10 Emergency , [facility] [id number] Univers 15:29:00 16:34:00 Ofelia CALIX [id number] i ty of [place] [id number] [facility] [id number] [address] 2021-04-25 2021-04-25 Emergency X JENNIFER, [facility] ERT [id number] Univers 18:47:00 20:45:00 CHRIS itarian [facility] 2021-04-25 2021-04-25 Emergency [place], [facility] [id number] Univers 18:47:00 20:45:00 Chris CALIX [id number] i ty of [place] [address] [place] [id number] 2021-04-14 2021-04-14 [facility] [id number] Univers 22:04:00 23:00:00 Sarahalexei CALIX [id number] ity of [place] 4.2.7.2.6 [facility] [id number] [address] 2021-04-14 2021-04-14 [facility] [id number] Univers 22:04:00 23:00:00 SARAH pereira [facility] 2020-05-09 2020-05-09 [facility] [id number] 00:11:00 03:03:00 Faby [place] [id number] [place] [address] [place] [address] [id number] [facility] 2020-05-09 2020-05-09 [facility] [id number] Univers 00:11:00 03:03:00 Faby S [place] [id number] i ty of [place] [id number] [facility] [id number] [address] 2020-05-09 2020-05-09 Emergency X CHASE [facility] ERT [id number] Univers 00:11:00 00:11:00 FABY it[facility] 2019-10-01 2019-10-01 Emergency Braydon Lee [facility] [id number] Univers 17:49:15 20:06:00 [place] [id number] i [facility] [place] 4.2.7.2.686 [facility] [phone] [address] 2019-10-01 2019-10-01 Emergency Braydon Lee [facility] [id number] 17:49:15 20:06:00 Pat [place] [id number] [place] [address] [place] [address] [phone] [id number] 2019-10-01 2019-10-01 Emergency X [facility] ERT [id number] [facility] 17:36:00 [facility] 2018-12-30 2018-12-30 Emergency [facility] [id number] Univers 14:58:03 17:46:00 Myrna R [place] [id number] i [facility] [place] 4.2.7.2.[address] [place] [phone] 2018-12-30 2018-12-30 [facility] [id number] 14:58:03 17:46:00 Myrna R [place] 350.1.13.[address] [place] [address] [place] [address] [id number] [id number] Results Test Description Test Time Test [...] code = 3257) positive Negative - Negative [facility] URINALYSIS W/O SPECIFIC [id number] 14:43:00 Test Item Value Reference Range Interpretation [...] code = 3257) positive Negative - Negative [facility] [id number] 05:17:00 Test Item Value Reference Range Interpretation Comments POCT PREG (test code = 1605) negative On board controls acceptable with positive C Line (test code = 3574) POCT PREG LOT # (test code = 3575) [id number] POCT PREG TEST DATE (test 07/15/2023 code = 3576) Lab Interpretation (test code = Normal 59660-3) [facility] [id number] 01:11:00 Test Item Value Reference Range Interpretation Comments POCT PREG (test code = 1605) negative On board controls acceptable with present C Line (test code = 3574) POCT PREG LOT # (test code = 3575) [id number] POCT PREG TEST DATE (test 06/13/2022 code = 3576) Lab Interpretation (test code = Normal 88899-2) [facility] [id number] 04:16:00 Test Item Value Reference Range Interpretation Comments POCT PREG (test code = 1605) neg On board controls acceptable with yes C Line (test code = 3574) POCT PREG LOT # (test code = 3575) [id number] POCT PREG TEST DATE (test 06/13/2022 code = 3576) Lab Interpretation (test code = Normal 98456-6) [facility] [id number] 07:35:00 Test Item Value Reference Range Interpretation Comments PREG SERUM (test code Negative = 9699780737) AL (test code = AL) Less than 10 IU/L. ?If low titer or ectopic is suspected, resubmit specimen in 48-72 hours. [facility] Screen - ONCE [id number] 07:34:36 Test Item Value Reference Range Interpretation Comments ABO & RH (test code O Positive Performe d at [facility] = 20) Laboratory Serv [facility] [address] [place], [place] [id number] Free: [phone] A No. [id number] IAT (test code = Negative Performed a t [facility] 1185) Laboratory Serv [facility] [address] [place], [place] [id number] Free: [phone] A No. [id number] [facility]2021-01-24 07:28:00 Test Item Value Reference Range Interpretation Comments APPEARANCE (test code = Clear Clear 2318083449) COLOR (test code = Red Yellow A 6393741951) PH (test code = 4.8-8.0 0696959517) SP GRAVITY (test code = 1.003-1.030 L 7925875131) GLU U QUAL (test code = Normal Normal 1760750012) BLOOD (test code = 3+ Negative A 9738461456) KETONES (test code = Negative Negative 5749781359) PROTEIN (test code = 30 mg/dL Negative A 2887-8) UROBILIN (test code = Normal Normal 1976943227) BILIRUBIN (test code = Negative Negative 5479978186) NITRITE (test code = Negative Negative 8394196351) LEUK RANJANA (test code = 25/uL Negative A 1790681201) RBC/HPF (test code = See_Comment H [Autom ated message] 5852940350) The system eCollect generated this result transmitted ref erence range: 0 - 3 HP F. The reference range was not used to int erpret this result as normal/abnormal . WBC/HPF (test code = See_Comment H [Autom ated message] 9742503892) The system eCollect generated this result transmitted ref erence range: 0 - 5 HP F. The reference range was not used to int erpret this result as normal/abnormal . BACTERIA (test code = Few Negative A 1687255776) SQ EPITH (test code = <1 HPF 6544186766) Lab Interpretation (test Abnormal code = 26334-2) [facility] METABOLIC PANEL (NA, K, CL, CO2, GLUCOSE, BUN, CREATININE, CA)2020-05-09 07:11:00 Test Item Value Reference Range Interpretation Comments NA (test code = 138 mmol/L 135-145 9771420579) K (test code = 3.7 mmol/L 3.5-5 2814742753) CL (test code = 105 mmol/L 98-108 5501763153) CO2 TOTAL (test code = 23 mmol/L 23-31 2432886655) AGAP (test code = 2-16 6589054292) BUN (test code = 14 mg/dL 7-23 9683111305) GLUCOSE (test code = 101 mg/dL 70-110 0992730010) CREATININE (test code 0.61 mg/dL 0.5-1.04 = 0450882504) CALCIUM (test code = 9.2 mg/dL 8.6-10.6 5671047702) eGFR Calculation mL/min/1.73m2 (Non-) (test code = 4659667528) eGFR Calculation mL/min/1.73m2 () (test code = 2863505091) AL (test code = AL) Association of [...] or urine or abnormalities in imaging tests). [facility] WITH [id number] 06:47:00 Test Item Value Reference Range Interpretation [...] RDW-SD (test code = 46.9 fL 39-49.9 72824-7) RDW-CV (test code = 16.3 % 12-15.5 H 788-0) PLT (test code = See_Comment [Automated 777-3) message] The sy stem which generated this result transmitted reference range : 166 - 358 10*3/ ?L. The reference r duane was not used to interpret this result as normal/abnormal . MPV (test code = 10.7 fL 9.5-12.9 98433-4) NRBC/100 WBC (test See_Comment [Automat ed code = 3359200779) message] The system which generated this result transmitted reference range : 0.0 - 10.0 /100 WBCs. The refer ence range was not u sed to interpret th is result as normal/abnormal . NRBC x10^3 (test code <0.01 See_Comment [Auto mated = 7196337628) message] The s ystem which generated this result transmitted reference range : 10*3/?L. The reference range was not used to interpret this result as normal/abnormal . GRAN MAT (NEUT) % 56.2 % (test code = 770-8) IMM GRAN % (test code 0.00 % = 9817953407) LYMPH % (test code = 33.9 % 736-9) MONO % (test code = 6.9 % 5905-5) EOS % (test code = 2.4 % 713-8) BASO % (test code = 0.6 % 706-2) GRAN MAT x10^3(ANC) 2.62 10*3/uL 1.88-7.09 (test code = 2637889851) IMM GRAN x10^3 (test <0.03 0-0.06 code = 5938488126) LYMPH x10^3 (test code 1.58 10*3/uL 1.32-3.29 = 731-0) MONO x10^3 (test code 0.32 10*3/uL 0.33-0.92 L = 742-7) EOS x10^3 (test code = 0.11 10*3/uL 0.03-0.39 711-2) BASO x10^3 (test code 0.03 10*3/uL 0.01-0.07 = 704-7) Lab Interpretation Abnormal (test code = 98286-7) [facility] [id number] 06:31:00 Test Item Value Reference Range Interpretation Comments POCT PREG (test code = 1605) negative On board controls acceptable with positive C Line (test code = 3574) POCT PREG LOT # (test code = 3575) [id number] POCT PREG TEST DATE (test 02/12/2021 code = 3576) Lab Interpretation (test code = Normal 54100-8) [facility] (ID NOW RAPID TESTING)2019-10-02 00:40:00 Test Item Value Reference Range Interpretation Comments SARS-CoV-2 Rapid ID NOW Positive Not Detected A (test code = 76235-2) AL (test code = AL) ID NOW COVID-19 Assay is an isothermal nucleic acid amplification test intended for the qualitative detection of nucleic acid from SARS-CoV-2 viral RNA in nasopharyngeal (WEB [employer]ODUCTION ARTIST) specimens. It is used under Emergency Use [...] indicated. Lab Interpretation Abnormal (test code = 43836-0) [facility]2019-09-16 22:04:00 Test Item Value Reference Range Interpretation Comments APPEARANCE (test code = Clear Clear 2973190259) COLOR (test code = Straw Yellow A 0138562051) PH (test code = 4.8-8.0 8425421903) SP GRAVITY (test code = 1.003-1.030 2665103988) GLU U QUAL (test code = Normal Normal 9238021520) BLOOD (test code = Negative Negative 9288397175) KETONES (test code = Negative Negative 8790466145) PROTEIN (test code = Negative Negative 2887-8) UROBILIN (test code = Normal Normal 4943951880) BILIRUBIN (test code = Negative Negative 1275520643) NITRITE (test code = Negative Negative 6963661808) LEUK RANJANA (test code = 25/uL Negative A 1007055585) RBC/HPF (test code = See_Comment [Autom ated message] 5117570332) The system eCollect generated this result transmitted ref erence range: 0 - 3 HP F. The reference range was not used to int erpret this result as normal/abnormal . WBC/HPF (test code = See_Comment [Autom ated message] 1656150350) The system eCollect generated this result transmitted ref erence range: 0 - 5 HP F. The reference range was not used to int erpret this result as normal/abnormal . BACTERIA (test code = Negative Negative 2146139546) SQ EPITH (test code = HPF 6450859233) Lab Interpretation (test Abnormal code = 15802-2) [facility] [id number] 21:08:00 Test Item Value Reference Range Interpretation Comments POCT PREG (test code = 1605) negative On board controls acceptable with present C Line (test code = 3574) POCT PREG LOT # (test code = 3575) [id number] POCT PREG TEST DATE (test 04-15-2020 code = 3576) Lab Interpretation (test code = Normal 39542-4) [facility]"
[2022-10-27] MEDS ORDERED: ONDANSETRON 4 MG/2 ML VIAL ONE (19:33)
[2022-10-27 19:52] LABS: Potassium 3.6 mEq/L (3.5-5.1)
[2022-10-27 20:07] LABS: Absolute Lymphocytes (CBC) 0.9 K/uL (0.7-4.9); Hematocrit 22.7 % (36.0-45.0); Lymphocytes % 27.5 % (15.3-44.8); MPV 8.1 fL (7.6-11.3); Protime INR 1.01; RBC Red Blood Cell Count 3.24 M/uL (3.86-4.86)
[2022-10-27] MEDS ORDERED: NA CHLORIDE 0.9% 250 ML ONE (21:09)
[2022-10-27 21:33] LABS: Anisocytosis 1+; Blood Morphology Comment NOTED (NOT SEEN); Hypochromasia 2+; Platelet Estimate ADEQ; Poikilocytosis SLIGHT; Polychromasia 1+; Teardrop Cell FEW
[2022-10-27] MEDS ORDERED: ACETAMINOPHEN 500 MG TAB ONE (22:25)
[2022-10-28] MEDS ORDERED: NA CHLORIDE 0.9% 50 ML ONE (00:47)
[2022-10-28] MEDS ORDERED: ACETAMINOPHEN 500 MG TAB PO PRN (02:16)
[2022-10-28] MEDS ORDERED: ONDANSETRON 4 MG/2 ML VIAL IV PRN (02:16)
--- NOTE | 2022-10-28 02:18 | P.HP ---
Patient History Date of Service: 10/28/22 Allergies No Known Allergies Allergy (Verified 10/09/19 02:02) Home Medications: Amlodipine [Norvasc*] 5 mg PO DAILY #30 tab 08/14/20 Amox/Clavulanate [Augmentin 875-125 Tab*] 875 mg PO BID #14 tab 08/14/20 Ascorbic Acid [Vitamin C*] 500 mg PO DAILY #30 tablet 08/14/20 Docusate [Colace Cap*] 100 mg PO DAILY #30 cap 08/14/20 Ferrous Sulfate [Ferrous Sulfate*] 325 mg PO TID #90 tab 08/14/20 Gabapentin 300 mg PO BID 08/14/20 hydroCHLOROthiazide [Hydrochlorothiazide] 25 mg PO DAILY #30 tablet 08/14/20 - Past Medical/Surgical History Diabetic: No -: Iron deficiency anemia -: hypertension -: Anxiety -: section Psychosocial/ Personal History: Patient is employed, lives with family - Social History Alcohol use: No CD- Drugs: No Caffeine use: No Physical Examination - Studies Laboratory Data (last 24 hrs) 10/27/22 19:25: PT 11.1, INR 1.01 10/27/22 19:25: Sodium 140, Potassium 3.6, BUN 12, Creatinine 0.87, Glucose 103 10/27/22 19:25: WBC 3.30 L, Hgb 6.4 L, Hct 22.7 L, Plt Count 314 Assessment and Plan - Advance Directives Does patient have a Living Will: No Does patient have a Durable POA for Healthcare: No
--- NOTE | 2022-10-28 02:22 | ER ---
Nurse's Notes [facility] Name: Joyce Mera Age: 36 yrs Sex: Female : 1985 Arrival Date: 10/27/2022 Time: 18:53 Bed 5 Private MD: Diagnosis: Acute posthemorrhagic anemia;Menorrhagia Presentation: 10/27 19:06 Chief complaint: Patient states: heavy menstrual bleeding X4 days. weakness, SOB and ss nausea X3 days. last transfusion around 1 month ago. this is the worse i have felt in a long time so i know my count is really low. Coronavirus screen: Client denies travel out of the [place] in the last 14 days. At this time, the client does not indicate any symptoms associated with coronavirus-19. Ebola Screen: No symptoms or risks identified at this time. Initial Sepsis Screen: Does the patient meet any 2 criteria? No. Patient's initial sepsis screen is negative. Does the patient have a suspected source of infection? No. Patient's initial sepsis screen is negative. Risk Assessment: Do you want to hurt yourself or someone else? Patient reports no desire to harm self or others. Onset of symptoms was October 23, 2022. 19:06 Method Of Arrival: Wheelchair ss 19:06 Acuity: ALICIA 3 ss Triage Assessment: 19:11 General: Appears in no apparent distress. uncomfortable, Behavior is calm, cooperative. ss Pain: Complains of pain in generalized. EENT: No deficits noted. No signs and/or symptoms were reported regarding the EENT system. Neuro: No deficits noted. Ybarra Agitation-Sedation Scale (RASS): 0 - Alert and Calm Level of Consciousness is awake, alert, obeys commands, Oriented to person, place, time, situation. Cardiovascular: No deficits noted. Denies chest pain, Capillary refill < 3 seconds Clubbing of nail beds is absent JVD is absent Patient's skin is warm and dry. Respiratory: Reports shortness of breath Airway is patent Trachea midline Respiratory effort is even, unlabored, Respiratory pattern is regular, symmetrical, Onset: The symptoms/episode began/occurred gradually, the patient has mild shortness of breath. GI: No deficits noted. No signs and/or symptoms were reported involving the gastrointestinal system. : Reports vaginal bleeding that is with clots, heavy flow. Derm: Skin is intact, is healthy with good turgor, Skin is dry, Skin is pale, Skin temperature is warm. Musculoskeletal: No deficits noted. Circulation, motion, and sensation intact. Range of motion: intact in all extremities, Reports generalized weakness. 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 - Social history:: Smoking status: Patient denies any tobacco usage or history of. Patient/guardian denies using alcohol, street drugs. Screenin:34 [facility] ED Fall Risk Assessment (Adult) History of falling in the last 3 months, jb4 including since admission No falls in past 3 months (0 pts) Confusion or Disorientation No (0 pts) Score/Fall Risk Level 0 - 2 = Low Risk Oriented to surroundings, Maintained a safe environment. Abuse screen: Denies threats or abuse. Nutritional screening: No deficits noted. Tuberculosis screening: No symptoms or risk factors identified. Assessment: 19:34 General: Appears in no apparent distress. uncomfortable, Behavior is calm, cooperative, jb4 appropriate for age. Pain: Denies pain. Neuro: Level of Consciousness is awake, alert, obeys commands, Oriented to person, place, time, situation. Cardiovascular: Patient's skin is warm and dry. Respiratory: Airway is patent Respiratory effort is even, unlabored, Respiratory pattern is regular, symmetrical. GI: No signs and/or symptoms were reported involving the gastrointestinal system. : No signs and/or symptoms were reported regarding the genitourinary system. EENT: No signs and/or symptoms were reported regarding the EENT system. Derm: Skin is intact, Skin is dry, Skin is pale, Skin temperature is warm. Musculoskeletal: Circulation, motion, and sensation intact. Range of motion: intact in all extremities. 20:58 Reassessment: Patient appears in no apparent distress at this time. Patient and/or jb4 family updated on plan of care and expected duration. Pain level reassessed. Patient is alert, oriented x 3, equal unlabored respirations, skin warm/dry/pink. 21:01 Reassessment: Consent for RBC transfusion signed by pt. mb9 21:55 Reassessment: Patient appears in no apparent distress at this time. Patient and/or jb4 family updated on plan of care and expected duration. Pain level reassessed. Patient is alert, oriented x 3, equal unlabored respirations, skin warm/dry/pink. 23:00 Reassessment: Patient appears in no apparent distress at this time. Patient and/or jb4 family updated on plan of care and expected duration. Pain level reassessed. Patient is alert, oriented x 3, equal unlabored respirations, skin warm/dry/pink. Pt currently receiving blood transfussion. 10/28 00:11 Reassessment: Pt resting comfortably in bed, denies any complaints at this time. Blood jb4 continues to infuse without issue or complication. 00:55 Reassessment: Patient appears in no apparent distress at this time. Patient and/or jb4 family updated on plan of care and expected duration. Pain level reassessed. Patient is alert, oriented x 3, equal unlabored respirations, skin warm/dry/pink. Second unit of blood started. 02:25 Reassessment: D/c pending completion of Blood transfusion. jb4 03:03 Reassessment: Patient appears in no apparent distress at this time. Patient and/or jb4 family updated on plan of care and expected duration. Pain level reassessed. Patient is alert, oriented x 3, equal unlabored respirations, skin warm/dry/pink. Pt finished blood transfusion. Reports feeling much better. Vital Signs: 10/27 19:06 BP 119 / 74; Pulse 71; Resp 16 S; Temp 99(O); Pulse Ox 100% on R/A; Weight 78.47 kg; ss Height 5 ft. 4 in. (R); 20:45 BP 133 / 84; Pulse 63; Resp 16; Pulse Ox 94% on R/A; jb4 21:15 BP 124 / 64; Pulse 70; Resp 16; Pulse Ox 100% ; jb4 22:00 BP 129 / 88; Pulse 65; Resp 16; Pulse Ox 100% on R/A; jb4 23:00 BP 123 / 70; Pulse 54; Resp 16; Pulse Ox 99% on R/A; jb4 07/15 00:00 BP 152 / 95; Pulse 54; Resp 16; Pulse Ox 99% on R/A; jb4 01:00 BP 144 / 91; Pulse 60; Resp 16; Pulse Ox 100% on R/A; jb4 02:50 BP 174 / 95; Pulse 53; Resp 18; Pulse Ox 100% on R/A; jb4 10/27 19:06 Body Mass Index 29.70 (78.47 kg, 162.56 cm) ED Course: 10/27 18:55 Patient arrived in ED. ts1 18:58 Marguerite Baeza PA-C is PHCP. sb4 18:58 Peterson Lambert MD is Attending Physician. sb4 19:11 Triage completed. ss 19:11 Arm band placed on left wrist. ss 19:16 Ermias Adames, RN is Primary Nurse. jb4 19:25 Initial lab(s) drawn, by ga, sent to lab. Inserted saline lock: 18 gauge in right jb4 antecubital area, using aseptic technique. Blood collected. 19:33 PT-INR Sent. jb4 19:33 BMP Sent. jb4 19:33 CBC with Manual Differential Sent. jb4 19:33 Type And Screen Sent. jb4 19:34 Patient has correct armband on for positive identification. Placed in gown. Bed in low jb4 position. Call light in reach. Side rails up X 1. Client placed on continuous cardiac and pulse oximetry monitoring. NIBP monitoring applied. 20:43 Order to transfuse 2 units obtained from provider and faxed to the lab. Cherie in the kd3 lab was called and notified. 10/28 02:21 Danika Tan MD is Referral Physician. sb4 02:50 No provider procedures requiring assistance completed. IV discontinued, intact, jb4 bleeding controlled, No redness/swelling at site. Pressure dressing applied. Administered Medications: 10/27 19:33 Drug: Ondansetron IVP 4 mg Route: IVP; Site: right antecubital; jb4 22:18 Drug: Acetaminophen PO 1000 mg Route: PO; jb4 Medication: 19:34 VIS not applicable for this client. jb4 Outcome: 10/28 02:21 Discharge ordered by . sb4 02:50 Discharged to home ambulatory, with family. jb4 02:50 Condition: stable 02:50 Discharge instructions given to patient, Instructed on discharge instructions, follow up and referral plans. Demonstrated understanding of instructions, follow-up care. 03:04 Patient left the ED. jb4 Signatures: Ayse Heart, RN RN ss Ermias Adames RN RN jb4 Charlotte Dotson RN RN shelton3 Marguerite Baeza, PAReenaC PAReenaC la4 Dalila Boothe RN RN mb9 Linda Higgins PAS PAS ts1
--- NOTE | 2022-10-28 02:22 | EDPHYS ---
Physician Documentation [facility] Name: Joyce Mera Age: 36 yrs Sex: Female : 1985 Arrival Date: 10/27/2022 Time: 18:53 Bed 5 Private MD: ED Physician Peterson Lambert HPI: 10/27 19:17 This 36 yrs old Female presents to ER via Wheelchair with complaints of General sb4 Weakness, Shortness Of Breath. 19:21 36 year old female with past medical history of anemia secondary to heavy menstrual sb4 cycles requiring blood transfusions presents with weakness and shortness of breath. She states that she began her menstrual cycle 4 days ago and has had excessive bleeding with passage of clots. She saw an OBGYN yesterday and had a transvaginal US done but does not know the result. [employer]: 19:11 LMP 10/27/2022 ss Historical: - Allergies: 19:11 No Known Allergies; ss - Home Meds: 19:11 amlodipine oral [Active]; gabapentin Oral [Active]; ss - PMHx: 19:11 Anemia; Anxiety; blood transfusion; Hypertension; ss - PSHx: 19:11 section; ss - Immunization history:: Adult Immunizations up to date. - Social history:: Smoking status: Patient denies any tobacco usage or history of. Patient/guardian denies using alcohol, street drugs. ROS: 19:18 Eyes: Negative for injury, pain, redness, and discharge, ENT: Negative for injury, sb4 pain, and discharge, Cardiovascular: Negative for chest pain, palpitations, and edema, Back: Negative for injury and pain, MS/Extremity: Negative for injury and deformity, Skin: Negative for injury, rash, and discoloration, Neuro: Negative for headache, weakness, numbness, tingling, and seizure. 19:18 Constitutional: Positive for fatigue, Negative for body aches, chills, malaise. 19:18 Respiratory: Positive for shortness of breath. 19:18 Abdomen/GI: Positive for nausea, Negative for nausea and vomiting. 19:18 Hematologic/Lymphatic: Positive for anemia, abnormal bleeding, Negative for swollen nodes, petechiae, ecchymosis, joint pain. 19:18 All other systems are negative. Exam: 19:18 Eyes: Extra-ocular motions intact. Periorbital areas with no swelling, redness, or sb4 edema. ENT: Mucous membranes moist. Cardiovascular: Regular rate and rhythm with a normal S1 and S2. Respiratory: Lungs have equal breath sounds bilaterally, clear to auscultation and percussion. No rales, rhonchi or wheezes noted. No increased work of breathing, no retractions or nasal flaring. Abdomen/GI: Soft, non-tender, no distension. Back: No spinal tenderness. No costovertebral tenderness. Full range of motion. Skin: Warm, dry with normal turgor. Normal color with no rashes, no lesions, and no evidence of cellulitis. MS/ Extremity: Pulses equal, no cyanosis. Neurovascular intact. Full, normal range of motion. 19:18 Constitutional: The patient appears alert, awake, pale, uncomfortable. Vital Signs: 19:06 BP 119 / 74; Pulse 71; Resp 16 S; Temp 99(O); Pulse Ox 100% on R/A; Weight 78.47 kg; ss Height 5 ft. 4 in. (R); 20:45 BP 133 / 84; Pulse 63; Resp 16; Pulse Ox 94% on R/A; jb4 21:15 BP 124 / 64; Pulse 70; Resp 16; Pulse Ox 100% ; jb4 22:00 BP 129 / 88; Pulse 65; Resp 16; Pulse Ox 100% on R/A; jb4 23:00 BP 123 / 70; Pulse 54; Resp 16; Pulse Ox 99% on R/A; jb4 10/28 00:00 BP 152 / 95; Pulse 54; Resp 16; Pulse Ox 99% on R/A; jb4 01:00 BP 144 / 91; Pulse 60; Resp 16; Pulse Ox 100% on R/A; jb4 02:50 BP 174 / 95; Pulse 53; Resp 18; Pulse Ox 100% on R/A; jb4 10/27 19:06 Body Mass Index 29.70 (78.47 kg, 162.56 cm) ss MDM: 10/27 18:58 Patient medically screened. sb4 10/28 00:54 Differential diagnosis: menorrhagia, GI bleed, hematuria, anemia, pancytopenia. Data sb4 reviewed: vital signs, nurses notes, lab test result(s), and as a result, I will discharge patient. Consideration of Admission/Observation Escalation of care including admission/observation considered. Counseling: I had a detailed discussion with the patient and/or guardian regarding: the historical points, exam findings, and any diagnostic results supporting the discharge/admit diagnosis, the need for outpatient follow up, an OB/Gyne specialist. 10/27 19:15 Order name: Type And Screen sb4 10/27 19:15 Order name: CBC with Manual Differential; Complete Time: 21:36 sb4 10/27 19:15 Order name: BMP; Complete Time: 19:54 sb4 10/27 19:15 Order name: PT-INR; Complete Time: 20:07 sb4 10/27 21:40 Order name: Packed RBC Leukored EDMS 10/27 19:15 Order name: IV Start; Complete Time: 19:33 sb4 10/27 19:16 Order name: O2 Sat Monitoring; Complete Time: 19:32 sb4 10/27 20:43 Order name: Transfuse; Complete Time: 22:36 kd3 Administered Medications: 10/27 19:33 Drug: Ondansetron IVP 4 mg Route: IVP; Site: right antecubital; jb4 22:18 Drug: Acetaminophen PO 1000 mg Route: PO; jb4 Disposition: 10/28 19:19 Co-signature as Attending Physician, Peterson Lambert MD I reviewed the patient's care rt provided by the Advanced Practice Provider and agree with the diagnosis and treatment plan. Disposition Summary: 10/28/22 02:21 Discharge Ordered Location: Home sb4 Problem: an acute exacerbation sb4 Symptoms: have improved sb4 Condition: Stable sb4 Diagnosis - Acute posthemorrhagic anemia sb4 - Menorrhagia sb4 Followup: sb4 - With: - When: 2 - 3 days - Reason: Recheck today's complaints, Re-evaluation by your physician Discharge Instructions: - Discharge Summary Sheet sb4 - Anemia sb4 - Menorrhagia, [id number] sb4 - Blood Transfusion, Adult, Care After, [id number] sb4 Forms: - Work release form jb4 - Medication Reconciliation Form sb4 - Thank You Letter sb4 - Antibiotic Education sb4 - Prescription Opioid Use sb4 - Patient Portal Instructions sb4 Signatures: Dispatcher [employer] Ayse Gan RN RN Ermias Adames RN RN jbCharlotte Alegre RN RN kd3 Marguerite Baeza PAReenaC PA-C sb4 Peterson Lambert MD MD rt Corrections: (The following items were deleted from the chart) 02:19 Regular ordered. EDMS EDMS 02:19 Urinalysis w/ reflexes ordered. EDMS EDMS : 02:19 CBC with Automated Diff ordered. EDMS EDMS 02:19 CBC with Automated Diff ordered. EDMS EDMS 02:19 CBC with Automated Diff ordered. EDMS EDMS 02:19 Comprehensive Metabolic Panel ordered. EDMS EDMS 02:19 Comprehensive Metabolic Panel ordered. EDMS EDMS 02:19 Comprehensive Metabolic Panel ordered. EDMS EDMS 02:19 Magnesium ordered. EDMS EDMS 02:19 Magnesium ordered. EDMS EDMS : 02:19 Magnesium ordered. EDMS EDMS 02:19 Phosphorus ordered. EDMS EDMS 02:19 Phosphorus ordered. EDMS EDMS 02:19 Phosphorus ordered. EDMS EDMS : 02:19 Troponin High Sensitivity ordered. EDMS EDMS : 02:19 Troponin High Sensitivity ordered. EDMS EDMS : 02:19 Troponin High Sensitivity ordered. EDMS EDMS : 02:19 Troponin High Sensitivity ordered. EDMS EDMS 02: 02:18 Urine Culture ordered. EDMS EDMS
[2022-10-28] MEDS ORDERED: NA CHLORIDE 0.9% 1,000 ML IV SCH (03:00)
[2022-10-28 05:16] VITALS: TEMP 99
[2022-10-28 05:23] VITALS: O2SAT 100
[2022-10-28 05:24] VITALS: BP 174/95
== END 2022-10-28 03:04 | disposition home or self-care (01) ==
LOC: ER 18:53
PROC: 30233N1 Transfusion of Nonautologous Red Blood Cells into Peripheral Vein, Percutaneous Approach (ICD-10-PCS; principal; 2022-10-28)
DX: D62 Acute posthemorrhagic anemia (principal); N92.0 Excessive and frequent menstruation with regular cycle; I10 Essential (primary) hypertension
CPT/HCPCS: 85025; 80048; 36415; 86900; 86850; 85610; 86901; 86920 ×2; 96374; 99284; 36430; J2405; P9016 ×2; J7050

== ENCOUNTER 2023-01-18 20:22 | Emergency (ER) | payer OTHER ==
--- OUTSIDE RECORDS SUMMARY | 2023-01-18 20:28 | XMS REPORT | Continuity of Care Document ---
:1985 Author Organization [facility] t Address [address] [place] [address] [place] [address] Care Team Providers Name Role Phone Carlin Vizcarraranjan Moran Primary Care Physician VizcarraGuy Attending Clinician Unavailable RAIN CHU Attending Clinician Unavailable RAIN CHU Attending Clinician Unavailable Doctor Unassigned, [place] Attending Clinician Unavailable ASHLEY KAT Attending Clinician Unavailable WALI CORNELL Attending Clinician Unavailable Wali Jacques Attending Clinician LUZ MARINA TAYLOR Attending Clinician Unavailable Luz Marina Taylor MD Attending Clinician [phone] JARED GALLEGOS Attending Clinician Unavailable Jared Gallegos MD Attending Clinician OFELIA ESPINO Attending Clinician Unavailable Ofelia Espino DO Attending Clinician CHRIS RODRIGUEZ Attending Clinician Unavailable Chris Engle Attending Clinician Sarah Joel APN Attending Clinician SARAH JOEL Attending Clinician Unavailable Faby Fajardo Attending Clinician FABY STONE Attending Clinician Unavailable Braydon Owusu Attending Clinician Myrna Dutton Attending Clinician RAIN CHU Admitting Clinician Unavailable Payers Payer Name Policy Type Policy Number Effective Date Expiration Date S vishal [employer] [place] [id number] 2022 00:00:00 [place] [id number] 2022 WOMEN 00:00:00 [facility] [id number] 2020 CHOICE [place] STAR 00:00:00 [facility] [id number] 2020 CHIP 00:00:00 Problems Condition Condition Condition Status Onset Resolution Last Treating Co mments Source Name Details Category Date Date Treatment Clinician Date Coffee Coffee Disease Active [facility] ground ground 5-05 [facility] em[facility] em[facility] 00 Center Acute Acute Disease Active Overview: [facility] blood loss blood loss 5-05 Formattin [facility] anemia anemia 00:00: g of this Medical note Center might be different from the original. In anticipat [facility] for transfer to [facility] from [facility] to [place] for acute blood loss anemia with [...] ic instabili ty. Already received 2units at [facility] in [facility] for transfer. 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 Sp ludmila blood loss anemia - [facility] secondary St to blood [facility] loss Medical (chronic) Center Benign Benign Problem Common essential essential Spir it hypertensi hypertensi - [facility] on on [facility] Menorrhagi Menorrhagi Problem C ommon a a Spirit - [facility] Chronic Chronic Problem Common fatigue fatigue Spirit syndrome - [facility] [id number] Other Problem Common obesity Spirit due to - [facility] excess [facility] Abnormal Abnormal Problem Commo n uterine bleeding Spirit bleeding in - [facility] menstrual cycle [facility] [id number] Acute pain Problem C ommon of right Spirit knee - [facility] Decreased Other Problem Common blood decreased Spirit leucocyte white - [facility] number blood cell St (WBC) [facility] count [facility] [id number] RLS Problem Common (restless Spirit legs - [facility] syndrome) [facility] [id number] Neuropathy Problem Co mmon Spirit - [facility] [id number] GERD Problem Common without Spirit esophagiti - [facility] s [facility] [id number] Body mass Problem Com mon index [facility] [BMI] - [facility] 34.0-34.9, [facility] [id number] Peripheral Problem Co mmon tear of Spirit medial - CHI meniscus St of right [facility] knee as Medical current Center injury, subsequent encounter No known No known Disease Unive rs active active ity of problems problems [facility] Allergies, Adverse Reactions, Alerts Allergy Allergy Status Severity Reaction(s) Onset Inactive Treating Comm ents Source Name Type Date Date Clinician NO KNOWN Drug Active Univers ALLERGIE Class ity of S [facility] Social History Social Habit Start Date Stop Date Quantity Comments Source History of Tobacco Common Spirit - Use [facility] Gender identity Universit y of [facility] Sexual orientation Univer sity of [facility] Alcohol intake 2022-08-14 2022-08-14 Ex-drinker [facility] 00:00:00 00:00:00 (finding) [facility] History of Social 2022-08-14 2022-08-14 Univers ity of function 00:00:00 00:00:00 [facility] Exposure to 2022-07-22 2022-08-01 Not sure [facility] SARS-CoV-2 (event) 00:00:00 09:07:00 [facility] Sex Ass[birth year] At [birth year] [facility] 00:00:00 00:00:00 Medical Center Smoking Status Start Date Stop Date Source Never smoked tobacco [facility] Medications Ordered Filled Start Stop Current Ordering Indication Dosage Frequency Signature Comments Components Source Medication Medication Date Date Medication? Clinician (SIG) Name Name mikey 3-0 Yes [id number] .35mg Take 1 Univers ne (ORTHO 4-18 tablet by ity o f MICRONOR[place] 00 the Medical tablet morning. Fernanda jensen 3-0 Yes [id number] .35mg Take 1 Univers ne (ORTHO 4-18 tablet by ity o f MICRONOR) 00:[place] 0.[place] 00 the Medical tablet morning. Fernanda jensen 3-0 Yes [id number] .35mg Take 1 Univers ne (ORTHO 4-18 tablet by ity o f MICRONOR) 00:00: [place] 0.[place] mg 00 the Medical tablet morning. Fernanda jensen 3-0 Yes [id number] .35mg Take 1 Univers ne (ORTHO 4-18 tablet by ity o f MICRONOR) 00:00[place] 0.[place] mg 00 the Medical tablet morning. Fernanda jensen 2022-0 Yes [id number] .35mg Take 1 Univers ne (ORTHO 4-18 tablet by ity o f MICRONOR) 00:00: [place] 0.[place] mg 00 the Medical tablet morning. Fernanda jensen 3-0 Yes [id number] .35mg Take 1 Univers ne (ORTHO 4-18 tablet by ity o f MICRONOR) 00:00: [place] 0.[place] mg 00 the Medical tablet morning. Fernanda jensen 3-0 Yes [id number] .35mg Take 1 Univers ne (ORTHO 4-18 tablet by ity o f MICRONOR) 00:00: [place] 0.[place] mg 00 the Medical tablet morning. Fernanda jensen 3-0 Yes [id number] .35mg Take 1 Univers ne (ORTHO 4-18 tablet by ity o f MICRONOR) 00:00: [place] 0.[place] mg 00 the Medical tablet morning. Fernanda jensen 3-0 Yes [id number] .35mg Take 1 Univers ne (ORTHO 4-18 tablet by ity o f MICRONOR) 00:00: [place] 0.[place] mg 00 the Medical tablet morning. Branch norethindro 3-0 Yes [id number] .35mg Take 1 Univers ne (ORTHO 4-18 tablet by ity o f MICRONOR) 00:00: [place] 0.[place] mg 00 the Medical tablet morning. Branch norethindro 2023-0 Yes [id number] .35mg Take 1 Univers ne (ORTHO 4-18 tablet by ity o f MICRONOR) 00:00: [place] 0.[place] mg 00 the Medical tablet morning. Branch norethindro 2023-0 Yes [id number] .35mg Take 1 Univers ne (ORTHO 4-18 tablet by ity o f MICRONOR) 00:00: [place] 0.[place] mg 00 the Medical tablet morning. Branch norethindro 3-0 Yes [id number] .35mg Take 1 Univers ne (ORTHO 4-18 tablet by ity o f MICRONOR) 00:00: [place] 0.[place] mg 00 the Medical tablet morning. Branch norethindro 3-0 Yes [id number] .35mg Take 1 Univers ne (ORTHO 4-18 tablet by ity o f MICRONOR) 00:00: [place] 0.[place] mg 00 the Medical tablet morning. Branch hydroCHLORO 2022-0 Yes Univer s thiazide 25 4-14 ity of mg tablet 00:00: [address] hydroCHLORO 2022-0 Yes Univer s thiazide 25 4-14 ity of mg tablet 00:00: [place] [facility] hydroCHLORO 3-0 Yes Univer s thiazide 25 4-14 ity of mg tablet 00:00: [place] [facility] hydroCHLORO 3-0 Yes Univer s thiazide 25 4-14 ity of mg tablet 00:00: [place] [facility] hydroCHLORO 3-0 Yes Univer s thiazide 25 4-14 ity of mg tablet 00:00: [place] [facility] hydroCHLORO 2023-0 Yes Univer s thiazide 25 4-14 ity of mg tablet 00:00: [place] [facility] hydroCHLORO 3-0 Yes Univer s thiazide 25 4-14 ity of mg tablet 00:00: [place] [facility] hydroCHLORO 2023-0 Yes Univer s thiazide 25 4-14 ity of mg tablet 00:00: Medical Branch hydroCHLORO 2022-0 Yes Univer s thiazide 25 4-14 ity of mg tablet 00:00: [facility] Branch hydroCHLORO 2022-0 Yes Univer s thiazide 25 4-14 ity of mg tablet 00:00: [facility] Branch hydroCHLORO 2022-0 Yes Univer s thiazide 25 4-14 ity of mg tablet 00:00: Medical Branch hydroCHLORO 2022-0 Yes Univer s thiazide 25 4-14 ity of mg tablet 00:00: [place] [facility] Branch hydroCHLORO 2022-0 Yes Univer s thiazide 25 4-14 ity of mg tablet 00:00: [place] [facility] Branch hydroCHLORO 2022-0 Yes Univer s thiazide 25 4-14 ity of mg tablet 00:00: [place] [facility] Branch methocarbam 2021-04 Yes 500mg 500 mg, Un earlene oL 2-09 Oral, QID, ity of (ROBAXIN) 05:15: [place] tablet 500 00 on [facility] mg 03/23/22 at Branch 2315, Until Discontinu ed, Routine ibuprofen 2021-04 No 800mg 800 mg, Uni vers (IBU) 2- 12-09 Oral, ity of tablet 800 05:00: 05:16 ONCE, 1 [place] mg 00 :00 dose, On Medical [place] [facility] 03/23/22 at 2315, TANVIR ibuprofen 2021-04 Yes [id number] 600mg Take 1 U nivers 600 mg 2-09 tablet by ity of tablet 00:00: mouth [place] 00 every 8 Medical (eight) Branch hours as needed for Pain (scale 4-6). gabapentin 2021-04 Yes [id number] 300mg Take 1 Univers 300 mg 2-09 capsule by ity of capsule 00:00: mouth 3 [place] 00 (three) Medical times Branch daily as needed for Pain (scale 7-10). ibuprofen 2021-04 Yes [id number] 600mg Take 1 U nivers 600 mg 2-09 tablet by ity of tablet 00:00: mouth [place] 00 every 8 Medical (eight) Branch hours as needed for Pain (scale 4-6). gabapentin 2021-04 Yes [id number] 300mg Take 1 Univers 300 mg 2-09 capsule by ity of capsule 00:00: mouth 3 [place] 00 (three) Medical times Branch daily as needed for Pain (scale 7-10). ibuprofen 2021-04 Yes [id number] 600mg Take 1 U nivers 600 mg 2-09 tablet by ity of tablet 00:00: mouth [place] 00 every 8 Medical (eight) Branch hours as needed for Pain (scale 4-6). gabapentin 2021-04 Yes [id number] 300mg Take 1 Univers 300 mg 2-09 capsule by ity of capsule 00:00: mouth 3 [place] 00 (three) Medical times Branch daily as needed for Pain (scale 7-10). ibuprofen 2021-04 Yes [id number] 600mg Take 1 U nivers 600 mg 2-09 tablet by ity of tablet 00:00: mouth [place] 00 every 8 Medical (eight) Branch hours as needed for Pain (scale 4-6). gabapentin 2021-04 Yes [id number] 300mg Take 1 Univers 300 mg 2-09 capsule by ity of capsule 00:00: mouth 3 00 (three) Medical times Branch daily as needed for Pain (scale 7-10). ibuprofen 2021-04 Yes [id number] 600mg Take 1 U nivers 600 mg 2-09 tablet by ity of tablet 00:00: mouth [place] 00 every 8 Medical (eight) Branch hours as needed for Pain (scale 4-6). gabapentin 2021-04 Yes [id number] 300mg Take 1 Univers 300 mg 2-09 capsule by ity of capsule 00:00: mouth 3 00 (three) Medical times Branch daily as needed for Pain (scale 7-10). ibuprofen 2021-04 Yes [id number] 600mg Take 1 U nivers 600 mg 2-09 tablet by ity of tablet 00:00: mouth [place] 00 every 8 Medical (eight) Branch hours as needed for Pain (scale 4-6). gabapentin 2021-04 Yes [id number] 300mg Take 1 Univers 300 mg 2-09 capsule by ity of capsule 00:00: mouth 3 [place] 00 (three) Medical times Branch daily as needed for Pain (scale 7-10). ibuprofen 2021-04 Yes [id number] 600mg Take 1 U nivers 600 mg 2-09 tablet by ity of tablet 00:00: mouth [place] 00 every 8 Medical (eight) Branch hours as needed for Pain (scale 4-6). gabapentin 2021-04 Yes [id number] 300mg Take 1 Univers 300 mg 2-09 capsule by ity of capsule 00:00: mouth 3 [place] 00 (three) Medical times Branch daily as needed for Pain (scale 7-10). ibuprofen 2021-04 Yes [id number] 600mg Take 1 U nivers 600 mg 2-09 tablet by ity of tablet 00:00: mouth [place] 00 every 8 Medical (eight) Branch hours as needed for Pain (scale 4-6). gabapentin 2021-04 Yes [id number] 300mg Take 1 Univers 300 mg 2-09 capsule by ity of capsule 00:00: mouth 3 [place] 00 (three) Medical times Branch daily as needed for Pain (scale 7-10). ibuprofen 2021-04 Yes [id number] 600mg Take 1 U nivers 600 mg 2-09 tablet by ity of tablet 00:00: mouth [place] 00 every 8 Medical (eight) Branch hours as needed for Pain (scale 4-6). gabapentin 2021-04 Yes [id number] 300mg Take 1 Univers 300 mg 2-09 capsule by ity of capsule 00:00: mouth 3 [place] 00 (three) Medical times Branch daily as needed for Pain (scale 7-10). ibuprofen 2021-04 Yes [id number] 600mg Take 1 U nivers 600 mg 2-09 tablet by ity of tablet 00:00: mouth [place] 00 every 8 Medical (eight) Branch hours as needed for Pain (scale 4-6). gabapentin 2021-04 Yes [id number] 300mg Take 1 Univers 300 mg 2-09 capsule by ity of capsule 00:00: mouth 3 [place] 00 (three) Medical times Branch daily as needed for Pain (scale 7-10). ibuprofen 2021-04 Yes [id number] 600mg Take 1 U nivers 600 mg 2-09 tablet by ity of tablet 00:00: mouth [place] 00 every 8 Medical (eight) Branch hours as needed for Pain (scale 4-6). gabapentin 2021-04 Yes [id number] 300mg Take 1 Univers 300 mg 2-09 capsule by ity of capsule 00:00: mouth 3 [place] 00 (three) Medical times Branch daily as needed for Pain (scale 7-10). ibuprofen 2021-04 Yes [id number] 600mg Take 1 U nivers 600 mg 2-09 tablet by ity of tablet 00:00: mouth [place] 00 every 8 Medical (eight) Branch hours as needed for Pain (scale 4-6). gabapentin 2021-04 Yes [id number] 300mg Take 1 Univers 300 mg 2-09 capsule by ity of capsule 00:00: mouth 3 [place] 00 (three) Medical times Branch daily as needed for Pain (scale 7-10). ibuprofen 2021-04 Yes [id number] 600mg Take 1 U nivers 600 mg 2-09 tablet by ity of tablet 00:00: mouth [place] 00 every 8 Medical (eight) Branch hours as needed for Pain (scale 4-6). gabapentin 2021-04 Yes [id number] 300mg Take 1 Univers 300 mg 2-09 capsule by ity of capsule 00:00: mouth 3 [place] 00 (three) Medical times Branch daily as needed for Pain (scale 7-10). ibuprofen 2021-04 Yes [id number] 600mg Take 1 U nivers 600 mg 2-09 tablet by ity of tablet 00:00: mouth [place] 00 every 8 Medical (eight) Branch hours as needed for Pain (scale 4-6). gabapentin 2021-04 Yes [id number] 300mg Take 1 Univers 300 mg 2-09 capsule by ity of capsule 00:00: mouth 3 [place] 00 (three) Medical times Branch daily as needed for Pain (scale 7-10). ibuprofen 2021-04 Yes [id number] 600mg Take 1 U nivers 600 mg 2-09 tablet by ity of tablet 00:00: mouth [place] 00 every 8 Medical (eight) Branch hours as needed for Pain (scale 4-6). gabapentin 2021-04 Yes [id number] 300mg Take 1 Univers 300 mg 2-09 capsule by ity of capsule 00:00: mouth 3 [place] 00 (three) Medical times Branch daily as needed for Pain (scale 7-10). ibuprofen 2021-04 Yes [id number] 600mg Take 1 U nivers 600 mg 2-09 tablet by ity of tablet 00:00: mouth [place] 00 every 8 Medical (eight) Branch hours as needed for Pain (scale 4-6). gabapentin 2021-04 Yes [id number] 300mg Take 1 Univers 300 mg 2-09 capsule by ity of capsule 00:00: mouth 3 [place] 00 (three) Medical times Branch daily as needed for Pain (scale 7-10). methocarbam 2021-04 Yes [id number] 500mg Take 1 Univers oL 500 mg 2-08 tablet by ity o f tablet 00:00: mouth (three) Medical times Branch daily as needed for Pain (scale 7-10). methocarbam 2021-04 Yes [id number] 500mg Take 1 Univers oL 500 mg 2-08 tablet by ity o f tablet 00:00: mouth (three) Medical times Branch daily as needed for Pain (scale 7-10). methocarbam 2021-04 Yes [id number] 500mg Take 1 Univers oL 500 mg 2-08 tablet by ity o f tablet 00:00: mouth (three) Medical times Branch daily as needed for Pain (scale 7-10). methocarbam 2021-04 Yes [id number] 500mg Take 1 Univers oL 500 mg 2-08 tablet by ity o f tablet 00:00: mouth (three) Medical times Branch daily as needed for Pain (scale 7-10). methocarbam 2021-04 Yes [id number] 500mg Take 1 Univers oL 500 mg 2-08 tablet by ity o f tablet 00:00: mouth (three) Medical times Branch daily as needed for Pain (scale 7-10). methocarbam 2021-04 Yes [id number] 500mg Take 1 Univers oL 500 mg 2-08 tablet by ity o f tablet 00:00: mouth (three) Medical times Branch daily as needed for Pain (scale 7-10). methocarbam 2021-04 Yes [id number] 500mg Take 1 Univers oL 500 mg 2-08 tablet by ity o f tablet 00:00: mouth (three) Medical times Branch daily as needed for Pain (scale 7-10). methocarbam 2021-04 Yes [id number] 500mg Take 1 Univers oL 500 mg 2-08 tablet by ity o f tablet 00:00: mouth (three) Medical times Branch daily as needed for Pain (scale 7-10). methocarbam 2021-04 Yes [id number] 500mg Take 1 Univers oL 500 mg 2-08 tablet by ity o f tablet 00:00: mouth (three) Medical times Branch daily as needed for Pain (scale 7-10). methocarbam 2021-04 Yes [id number] 500mg Take 1 Univers oL 500 mg 2-08 tablet by ity o f tablet 00:00: mouth 3 (three) Medical times Branch daily as needed for Pain (scale 7-10). methocarbam 2021-04 Yes [id number] 500mg Take 1 Univers oL 500 mg 2-08 tablet by ity o f tablet 00:00: mouth 3 (three) Medical times Branch daily as needed for Pain (scale 7-10). methocarbam 2021-04 Yes [id number] 500mg Take 1 Univers oL 500 mg 2-08 tablet by ity o f tablet 00:00: mouth (three) Medical times Branch daily as needed for Pain (scale 7-10). methocarbam 2021-04 Yes [id number] 500mg Take 1 Univers oL 500 mg 2-08 tablet by ity o f tablet 00:00: mouth (three) Medical times Branch daily as needed for Pain (scale 7-10). methocarbam 2021-04 Yes [id number] 500mg Take 1 Univers oL 500 mg 2-08 tablet by ity o f tablet 00:00: mouth (three) Medical times Branch daily as needed for Pain (scale 7-10). methocarbam 2021-04 Yes [id number] 500mg Take 1 Univers oL 500 mg 2-08 tablet by ity o f tablet 00:00: mouth (three) Medical times Branch daily as needed for Pain (scale 7-10). methocarbam 2021-04 Yes [id number] 500mg Take 1 Univers oL 500 mg 2-08 tablet by ity o f tablet 00:00: mouth (three) Medical times Branch daily as needed for Pain (scale 7-10). ketorolac 2021-04 30mg 30 mg, Unive rs (TORADOL) 0-01-26 Intramuscu ity of injection 05:45: 05:56 [place], ONCE, [place] 30 mg 00 :00 1 dose, On Medical [place] [facility] 01/26/22 at 0045, TANVIR cyclobenzap 2021-04 Yes [id number] 5mg Take 1 Univers rine 5 mg 0-13 tablet by ity o f tablet 00:00: mouth in [place] 00 the Medical morning Branch and 1 tablet at noon and 1 tablet in the evening. gabapentin 2021-04 Yes [id number] 300mg Take 1 Univers 300 mg 0-13 capsule by ity of capsule 00:00: mouth in [place] 00 the Medical morning Branch and 1 capsule at noon and 1 capsule in the evening. cyclobenzap 2021-04- No [id number] 5mg Take 1 Univers rine 5 mg 0-13 12-08 tablet by ity of tablet 00:00: 00:00 mouth in [place] 00 :00 the Medical morning Branch and 1 tablet at noon and 1 tablet in the evening. gabapentin 2021-04- No [id number] 300mg Take 1 Univers 300 mg 0-13 [...] 10-07 t} MG 00:00: 00:00 00 :00 gabapentin 2022-0 2022- No 600mg 600 mg, Un earlene (NEURONTIN) 10-28-15 Oral, ity of capsule 600 07:00: 06:56 ONCE, 1 [place] mg 00 :00 dose, On Medical Fri Branch 10/28/21 at 0200, TANVIR gabapentin 2022-0 Yes [id number] 600mg Take 1 Univers 600 mg 7-15 07 tablet by ity of tablet 00:00: mouth in [place] 00 the Medical morning Branch and 1 tablet in the evening. gabapentin 2022-0 Yes [id number] 600mg Take 1 Univers 600 mg 7-15 07 tablet by ity of tablet 00:00: mouth in [place] 00 the Medical morning Branch and 1 tablet in the evening. gabapentin 202-0 2022- No [id number] 600mg Take 1 Univers 600 mg -15 03-23 07 tablet by ity of tablet 00:00: 00:00 mouth in [place] 00 :00 the Medical morning Branch and 1 tablet in the evening. methylPREDN 2022-0 Yes [id number] Take by Univers ISolone 4-27 mouth ity of (MEDROL, 00:00: SEE-INSTRU [place] TREASURE,) 4 mg 00 CTIONS. Medica l tablets follow Branch package directions methylPREDN 2022-0 Yes [id number] Take by Univers ISolone 4-27 mouth ity of (MEDROL, 00:00: SEE-INSTRU [place] TREASURE,) 4 mg 00 CTIONS. Medica l tablets follow Branch package directions methylPREDN 2-0 Yes [id number] Take by Univers ISolone 4-27 mouth ity of (MEDROL, 00:00: SEE-INSTRU [place] as TREASURE,) 4 mg 00 CTIONS. Medica l tablets follow Branch package directions methylPREDN 2022-0 2- No [id number] Take by Univers ISolone 4-27 12-08 mouth ity of (MEDROL, 00:00: 00:00 [place] TREASURE,) 4 mg 00 :00 CTIONS. Medica l tablets follow Branch package directions gabapentin 202-0 2- No [id number] 300mg Take 1 Univers 300 mg 4-27 05-08 capsule by ity of capsule 00:00: 04:59 mouth 3 [place] 00 :00 (three) Medical times Branch daily for 10 days. methocarbam 2021- No [id number] 500mg Take 1 Univers oL 500 mg [...] 04/14/21 at 2315, TANVIR amLODIPine 2020-04 Yes [id number] 2.5mg Take 1 Univers 2.5 mg 2-30 tablet by ity of tablet 00:00: mouth at [place] [address] bedtime. Medical Branch amLODIPine 2020-04 Yes [id number] 2.5mg Take 1 Univers 2.5 mg 2-30 tablet by ity of tablet 00:00: mouth at [place] [address] bedtime. Medical Branch amLODIPine 2020-04 Yes [id number] 2.5mg Take 1 Univers 2.5 mg 2-30 tablet by ity of tablet 00:00: mouth at [place] [address] bedtime. Medical Branch amLODIPine 2020-04 Yes [id number] 2.5mg Take 1 Univers 2.5 mg 2-30 tablet by ity of tablet 00:00: mouth at [place] [address] bedtime. Medical Branch amLODIPine 2020-04 Yes [id number] 2.5mg Take 1 Univers 2.5 mg 2-30 tablet by ity of tablet 00:00: mouth at [place] [address] bedtime. Medical Branch amLODIPine 2020-04 Yes [id number] 2.5mg Take 1 Univers 2.5 mg 2-30 tablet by ity of tablet 00:00: mouth at [place] [address] bedtime. Medical Branch amLODIPine 2020-04 Yes [id number] 2.5mg Take 1 Univers 2.5 mg 2-30 tablet by ity of tablet 00:00: mouth at [place] [address] bedtime. Medical Branch amLODIPine 2020-04 Yes [id number] 2.5mg Take 1 Univers 2.5 mg 2-30 tablet by ity of tablet 00:00: mouth at [place] [address] bedtime. Medical Branch amLODIPine 2020-04 Yes [id number] 2.5mg Take 1 Univers 2.5 mg 2-30 tablet by ity of tablet 00:00: mouth at [place] [address] bedtime. Medical Branch amLODIPine 2020-04 Yes [id number] 2.5mg Take 1 Univers 2.5 mg 2-30 tablet by ity of tablet 00:00: mouth at [place] [address] bedtime. Medical Branch amLODIPine 2020-04 Yes [id number] 2.5mg Take 1 Univers 2.5 mg 2-30 tablet by ity of tablet 00:00: mouth at [place] [address] bedtime. Medical Branch amLODIPine 2020-04 Yes [id number] 2.5mg Take 1 Univers 2.5 mg 2-30 tablet by ity of tablet 00:00: mouth at [place] [address] bedtime. Medical Branch amLODIPine 2020-04 Yes [id number] 2.5mg Take 1 Univers 2.5 mg 2-30 tablet by ity of tablet 00:00: mouth at [place] [address] bedtime. Medical Branch amLODIPine 2020-04 Yes [id number] 2.5mg Take 1 Univers 2.5 mg 2-30 tablet by ity of tablet 00:00: mouth at [place] [address] bedtime. Medical Branch amLODIPine 2020-04 Yes [id number] 2.5mg Take 1 Univers 2.5 mg 2-30 tablet by ity of tablet 00:00: mouth at [place] [address] bedtime. Medical Branch amLODIPine 2020-04 Yes [id number] 2.5mg Take 1 Univers 2.5 mg 2-30 tablet by ity of tablet 00:00: mouth at [place] [address] bedtime. Medical Branch amLODIPine 2020-04 Yes [id number] 2.5mg Take 1 Univers 2.5 mg 2-30 tablet by ity of tablet 00:00: mouth at [place] [address] bedtime. Medical Branch amLODIPine 2020-04 Yes [id number] 2.5mg Take 1 Univers 2.5 mg 2-30 tablet by ity of tablet 00:00: mouth at [place] [address] bedtime. Medical Branch amLODIPine 2020-04 Yes [id number] 2.5mg Take 1 Univers 2.5 mg 2-30 tablet by ity of tablet 00:00: mouth at [place] 00 bedtime. Medical Branch amLODIPine 2020-04 Yes [id number] 2.5mg Take 1 Univers 2.5 mg 2-30 tablet by ity of tablet 00:00: mouth at [place] [address] bedtime. Medical Branch amLODIPine 2020-04 Yes [id number] 2.5mg Take 1 Univers 2.5 mg 2-30 tablet by ity of tablet 00:00: mouth at [place] [address] bedtime. Medical Branch gabapentin 2020-04- No [id number] 300mg Take 1 Univers 300 mg 2-30 01-30 capsule by ity of capsule 00:00: 05:59 mouth 3 [place] 00 :00 (three) Medical times [place] daily for 30 days. gabapentin 2020-04- No [id number] 300mg Take 1 Univers 300 mg 2-30 01-30 capsule by ity of capsule 00:00: 05:59 mouth 3 [place] 00 :00 (three) [facility] times [place] daily for 30 days. [facility] Kenalog 2020-04 No 40mg Common (Triamcinol (Triamcinol 2-07 S pirit one) one) 00:00: - [facility] 00 [facility] Kenalog Kenalog 2020-04 No 40mg Common (Triamcinol (Triamcinol 2-07 S pirit one) one) 00:00: - [facility] 00 [facility] Kenalog Kenalog 2020-04 No 40mg Common (Triamcinol (Triamcinol 2-07 S pirit one) one) 00:00: - [facility] 00 [facility] Kenalog Kenalog 2020-04 No 40mg Common (Triamcinol (Triamcinol 2-07 S pirit one) one) 00:00: [facility] No [facility]mg Common (Triamcinol (Triamcinol 2-07 S pirit one) one) 00:00: - [facility] 00 [facility] Kenalog Kenalog 2020-04 No 40mg Common (Triamcinol (Triamcinol 2-07 S pirit one) one) 00:00: - [facility] 00 [facility] Kenalog Kenalog 2020-04 No 40mg Common (Triamcinol (Triamcinol 2-07 S pirit one) one) 00:00: - [facility] 00 [facility] Gladis Griffith 2020-04 No 40mg Common (Triamcinol (Triamcinol 2-07 S pirit one) one) 00:00: - [facility] 00 [facility] Gladis Griffith 2020-04 No 40mg Common (Triamcinol (Triamcinol 2-07 S pirit one) one) 00:00: - [facility] 00 [facility] Gladis Griffith 2020-04 No 40mg Common (Triamcinol (Triamcinol 2-07 S pirit one) one) 00:00: - [facility] 00 [facility]-04 No 40mg Common (Triamcinol (Triamcinol 2-07 S pirit one) one) 00:00: - [facility] 00 [facility] Gladis 2020-04 No 40mg Common (Triamcinol (Triamcinol 2-07 S pirit one) one) 00:00: - [facility] 00 [facility] Gladis Griffith 2020-04 No 40mg Common (Triamcinol (Triamcinol 2-07 S pirit one) one) 00:00: - [facility] 00 [facility] Gladis Griffith 2020-04 No 40mg Common (Triamcinol (Triamcinol 2-07 S pirit one) one) 00:00: - [facility] 00 [facility] Gladis Griffith 2020-04 No 40mg Common (Triamcinol (Triamcinol 2-07 S pirit one) one) 00:00: - [facility] 00 [facility] Gladis Griffith 2020-04 No 40mg Common (Triamcinol (Triamcinol 2-07 S pirit one) one) 00:00: - [facility] 00 [facility] naproxen 2020- No 500mg 500 mg, Univ ers (NAPROSYN) 05-09-24 Oral, ity of tablet 500 09:00: 07:59 ONCE, 1 [place] as mg 00 :00 dose, [facility] 05/09/20 at Branch 0300, Routine NaCl 0.9% 2020- No 1000mL at 999 Uni vers (NS) bolus 1-24 01-24 mL/hr, ity of infusion 08:00: 08:45 1,000 mL, [place] as 1,000 mL 00 :00 IV Medical Infusion, Branch ONCE, 1 dose, 05/09/20 at 0200, STAT naproxen 2020-0 Yes [id number] 500mg Take 1 Univers (NAPROSYN) 1-24 100 tablet by ity of 500 mg 00:00: mouth 2 [place] tablet 00 (two) Medical times [place] daily with meals. norgestimat 2020-0 Yes [id number] 1{tbl} Take 1 Univers e-ethinyl 1-24 100 tablet by ity o f estradioL 00:00: mouth [place] 0.25-35 00 daily. Medical mg-mcg per Branch tablet naproxen 2020-0 Yes [id number] 500mg Take 1 Univers (NAPROSYN) 1-24 100 tablet by ity of 500 mg 00:00: mouth 2 [place] tablet 00 (two) Medical times [place] daily with meals. norgestimat 0 Yes [id number] 1{tbl} Take 1 Univers e-ethinyl 1-24 100 tablet by ity o f estradioL 00:00: mouth [place] 0.25-35 00 daily. Medical mg-mcg per Branch tablet naproxen 0 Yes [id number] 500mg Take 1 Univers (NAPROSYN) 1-24 100 tablet by ity of 500 mg 00:00: mouth 2 [place] tablet 00 (two) Medical times [place] daily with meals. norgestimat 2020-0 Yes [id number] 1{tbl} Take 1 Univers e-ethinyl 1-24 100 tablet by ity o f estradioL 00:00: mouth [place] 0.25-35 00 daily. Medical mg-mcg per Branch tablet naproxen 2020-0 Yes [id number] 500mg Take 1 Univers (NAPROSYN) 1-24 100 tablet by ity of 500 mg 00:00: mouth 2 [place] tablet 00 (two) Medical times [place] daily with meals. norgestimat 2020-0 Yes [id number] 1{tbl} Take 1 Univers e-ethinyl 1-24 100 tablet by ity o f estradioL 00:00: mouth [place] 0.25-35 00 daily. Medical mg-mcg per Branch tablet naproxen Yes [id number] 500mg Take 1 Univers (NAPROSYN) 1-24 100 tablet by ity of 500 mg 00:00: mouth 2 [place] tablet 00 (two) Medical times [place] daily with meals. norgestimat Yes [id number] 1{tbl} Take 1 Univers e-ethinyl 1-24 100 tablet by ity o f estradioL 00:00: mouth [place] 0.25-35 00 daily. Medical mg-mcg per Branch tablet naproxen Yes [id number] 500mg Take 1 Univers (NAPROSYN) 1-24 100 tablet by ity of 500 mg 00:00: mouth 2 [place] tablet 00 (two) Medical times [place] daily with meals. norgestimat Yes [id number] 1{tbl} Take 1 Univers e-ethinyl 1-24 100 tablet by ity o f estradioL 00:00: mouth [place] 0.25-35 00 daily. Medical mg-mcg per Branch tablet naproxen 2021- No [id number] 500mg Take 1 Univers (NAPROSYN) 1-24 12-08 100 tablet by ity of 500 mg 00:00: 00:00 mouth 2 [place] tablet 00 :00 (two) Medical times [place] daily with meals. norgestimat 2021- No [id number] 1{tbl} Take 1 Univers e-ethinyl 1-24 12-08 [...] ty of succ 00:30: 23:48 lar, ONCE, [place] (SOLU-MEDRO 00 :00 1 dose, Medic al L) Wed Branch injection 10/01/19 at 125 mg 1929, STAT hydrOXYzine 2020-0 Yes [id number] 50mg Take 1 Univers (VISTARIL) 6-17 capsule by ity of 50 mg 00:00: mouth 3 [place] capsule 00 (three) Medical times Branch daily as needed for Itching. famotidine 2020-0 Yes [id number] 40mg Take 1 Univers (PEPCID) 40 6-17 tablet by ity of mg tablet 00:00: mouth [place] 00 daily. Medical Branch benzonatate 2020-0 Yes [id number] 100mg Take 1 Univers 100 mg 6-17 capsule by ity of capsule 00:00: mouth 3 [place] 00 (three) Medical times [place] daily as needed for Cough. hydrOXYzine 2020-0 Yes [id number] 50mg Take 1 Univers (VISTARIL) 6-17 capsule by ity of 50 mg 00:00: mouth 3 [place] capsule 00 (three) Medical times [place] daily as needed for Itching. famotidine 2020-0 Yes [id number] 40mg Take 1 Univers (PEPCID) 40 6-17 tablet by ity of mg tablet 00:00: mouth [place] 00 daily. Medical Branch benzonatate 2020-0 Yes [id number] 100mg Take 1 Univers 100 mg 6-17 capsule by ity of capsule 00:00: mouth 3 [place] 00 (three) Medical times [place] daily as needed for Cough. hydrOXYzine 2020-0 Yes [id number] 50mg Take 1 Univers (VISTARIL) 6-17 capsule by ity of 50 mg 00:00: mouth 3 [place] capsule 00 (three) Medical times [place] daily as needed for Itching. famotidine 2020-0 Yes [id number] 40mg Take 1 Univers (PEPCID) 40 6-17 tablet by ity of mg tablet 00:00: mouth [place] 00 daily. Medical Branch benzonatate 2020-0 Yes [id number] 100mg Take 1 Univers 100 mg 6-17 capsule by ity of capsule 00:00: mouth 3 [place] 00 (three) Medical times Branch daily as needed for Cough. hydrOXYzine 2020-0 Yes [id number] 50mg Take 1 Univers (VISTARIL) 6-17 capsule by ity of 50 mg 00:00: mouth 3 [place] capsule 00 (three) Medical times Branch daily as needed for Itching. famotidine 2020-0 Yes [id number] 40mg Take 1 Univers (PEPCID) 40 6-17 tablet by ity of mg tablet 00:00: mouth [place] 00 daily. Medical Branch benzonatate 2020-0 Yes [id number] 100mg Take 1 Univers 100 mg 6-17 capsule by ity of capsule 00:00: mouth 3 [place] 00 (three) Medical times Branch daily as needed for Cough. hydrOXYzine 2020-0 Yes [id number] 50mg Take 1 Univers (VISTARIL) 6-17 capsule by ity of 50 mg 00:00: mouth 3 [place] capsule 00 (three) Medical times Branch daily as needed for Itching. famotidine 2020-0 Yes [id number] 40mg Take 1 Univers (PEPCID) 40 6-17 tablet by ity of mg tablet 00:00: mouth [place] 00 daily. Medical Branch benzonatate 2020-0 Yes [id number] 100mg Take 1 Univers 100 mg 6-17 capsule by ity of capsule 00:00: mouth 3 [place] 00 (three) Medical times Branch daily as needed for Cough. famotidine 2020-0 Yes [id number] 40mg Take 1 Univers (PEPCID) 40 6-17 tablet by ity of mg tablet 00:00: mouth [place] 00 daily. Medical Branch hydrOXYzine 2020-0 Yes [id number] 50mg Take 1 Univers (VISTARIL) 6-17 capsule by ity of 50 mg 00:00: mouth 3 [place] capsule 00 (three) Medical times Branch daily as needed for Itching. famotidine 2020-0 Yes [id number] 40mg Take 1 Univers (PEPCID) 40 6-17 tablet by ity of mg tablet 00:00: mouth [place] 00 daily. Medical Branch famotidine 2020-0 Yes [id number] 40mg Take 1 Univers (PEPCID) 40 6-17 tablet by ity of mg tablet 00:00: mouth [place] 00 daily. Medical Branch benzonatate 2020-0 Yes [id number] 100mg Take 1 Univers 100 mg 6-17 capsule by ity of capsule 00:00: mouth 3 [place] 00 (three) Medical times Branch daily as needed for Cough. famotidine 2020-0 Yes [id number] 40mg Take 1 Univers (PEPCID) 40 6-17 tablet by ity of mg tablet 00:00: mouth [place] 00 daily. Medical Branch famotidine 2020-0 Yes [id number] 40mg Take 1 Univers (PEPCID) 40 6-17 tablet by ity of mg tablet 00:00: mouth [place] 00 daily. Medical Branch famotidine 2020-0 Yes [id number] 40mg Take 1 Univers (PEPCID) 40 6-17 tablet by ity of mg tablet 00:00: mouth [place] 00 daily. Medical Branch famotidine 2020-0 Yes [id number] 40mg Take 1 Univers (PEPCID) 40 6-17 tablet by ity of mg tablet 00:00: mouth [place] 00 daily. Medical Branch famotidine 2020-0 Yes [id number] 40mg Take 1 Univers (PEPCID) 40 6-17 tablet by ity of mg tablet 00:00: mouth [place] 00 daily. Medical Branch famotidine 2020-0 Yes [id number] 40mg Take 1 Univers (PEPCID) 40 6-17 tablet by ity of mg tablet 00:00: mouth [place] 00 daily. Medical Branch famotidine 2020-0 Yes [id number] 40mg Take 1 Univers (PEPCID) 40 6-17 tablet by ity of mg tablet 00:00: mouth [place] 00 daily. Medical Branch famotidine 2020-0 Yes [id number] 40mg Take 1 Univers (PEPCID) 40 6-17 tablet by ity of mg tablet 00:00: mouth [place] 00 daily. Medical Branch famotidine 2020-0 Yes [id number] 40mg Take 1 Univers (PEPCID) 40 6-17 tablet by ity of mg tablet 00:00: mouth [place] 00 daily. Medical Branch famotidine 2020-0 Yes [id number] 40mg Take 1 Univers (PEPCID) 40 6-17 tablet by ity of mg tablet 00:00: mouth [place] 00 daily. Medical Branch famotidine 2020-0 Yes [id number] 40mg Take 1 Univers (PEPCID) 40 6-17 tablet by ity of mg tablet 00:00: mouth [place] 00 daily. Medical Branch famotidine 2020-0 Yes [id number] 40mg Take 1 Univers (PEPCID) 40 6-17 tablet by ity of mg tablet 00:00: mouth [place] 00 daily. Medical Branch famotidine 2020-0 Yes [id number] 40mg Take 1 Univers (PEPCID) 40 6-17 tablet by ity of mg tablet 00:00: mouth [place] 00 daily. Medical Branch famotidine 2020-0 Yes [id number] 40mg Take 1 Univers (PEPCID) 40 6-17 tablet by ity of mg tablet 00:00: mouth [place] 00 daily. Medical Branch hydrOXYzine 2019-0 Yes [id number] 50mg Take 1 Univers (VISTARIL) 6-17 capsule by ity of 50 mg 00:00: mouth 3 [place] capsule 00 (three) Medical times Branch daily as needed for Itching. famotidine 2020-0 Yes [id number] 40mg Take 1 Univers (PEPCID) 40 6-17 tablet by ity of mg tablet 00:00: mouth [place] 00 daily. Medical Branch benzonatate 2019-0 Yes [id number] 100mg Take 1 Univers 100 mg 6-17 capsule by ity of capsule 00:00: mouth 3 [place] 00 (three) Medical times Branch daily as needed for Cough. hydrOXYzine 2019-0 2021- No [id number] 50mg Take 1 Univers (VISTARIL) 6-17 12-08 capsule by it y of 50 mg 00:00: 00:00 mouth 3 [place] capsule 00 :00 (three) Medical times Branch daily as needed for Itching. benzonatate 2019-0 2- No [id number] 100mg Take 1 Univers 100 mg 6-17 [...] needed for Pain (scale 7-10). traMADOL 2017-0 2021- No 50mg Take 1 Univer s (ULTRAM) 50 4-15 12-08 tablet by it y of mg tablet 00:00: 00:00 mouth [place] 00 :00 every 6 Medical (six) Branch hours as needed for Pain (scale 7-10). amLODIPine amLODIPine No QD amLODIPine Besylate 5 [...] blood 2022-08-01 14:36:00 130 mm[Hg] Univer [facility] Diastolic blood 2022-08-01 14:36:00 90 mm[Hg] [facility] Heart rate 2022-08-01 14:36:00 68 /min [facility] Respiratory rate 2022-08-01 14:36:00 16 /min [facility] Body height 2022-08-01 14:36:00 162.6 cm [facility] Body weight 2022-08-01 14:36:00 79.47 kg Universi ty [facility] BMI 2022-08-01 14:36:00 30.07 kg/m2 Universi ty [facility] Oxygen saturation in 2022-08-01 14:36:00 96 /min University of Arterial blood by [facility] Pulse oximetry Branch Systolic blood 2022-03-24 06:11:54 157 mm[Hg] Univer sity of pressure [facility] Diastolic blood 2022-03-24 06:11:54 109 mm[Hg] Unive rsity of pressure [facility] Heart rate 2022-03-24 06:11:54 71 /min Universi ty of [facility] Respiratory rate 2022-03-24 06:11:54 18 /min [facility] Oxygen saturation in 2022-03-24 06:11:54 100 /min University of Arterial blood by [facility] Pulse oximetry Branch Body temperature 2022-03-24 04:25:00 36.61 Jen [facility] Body height 2022-03-24 04:25:00 162.6 cm Universi ty of [facility] Body weight 2022-03-24 04:25:00 86.183 kg Universi ty of [facility] BMI 2022-03-24 04:25:00 32.61 kg/m2 Universi ty [facility] height 2022-02-28 16:30:00 63 [in_i] Common [facility] weight 2022-02-28 16:30:00 187.0 [lb_av] Common [facility] temperature 2022-02-28 16:30:00 97.2 [degF] Common [facility] bmi 2022-02-28 16:30:00 33.12 kg/m2 Common [facility] oximetry 2022-02-28 16:30:00 98 % Common [facility] respiratory rate 2022-02-28 16:30:00 18 /min Comm on [facility] blood pressure 2022-02-28 16:30:00 134 mm[Hg] Common [facility] systolic [facility] blood pressure 2022-02-28 16:30:00 64 mm[Hg] [facility] Systolic blood 2022-01-26 05:30:00 141 mm[Hg] Univer sity of pressure [facility] Diastolic blood 2022-01-26 05:30:00 96 mm[Hg] Unive rsity of pressure [facility] Heart rate 2022-01-26 05:30:00 91 /min Universi ty [facility] Body temperature 2022-01-26 05:30:00 36.78 Jen [facility] Respiratory rate 2022-01-26 05:30:00 18 /min [facility] Body height 2022-01-26 05:30:00 152.4 cm Universi ty [facility] Body weight 2022-01-26 05:30:00 86.183 kg Universi [facility] BMI 2022-01-26 05:30:00 37.11 kg/m2 [facility] Oxygen saturation in 2022-01-26 05:30:00 98 /min [facility] blood by [facility] Pulse oximetry Branch [facility] 2022-01-18 08:45:00 63 [in_i] Common [facility] weight 2022-01-18 08:45:00 192 [lb_av] Common [facility] temperature 2022-01-18 08:45:00 97.4 [degF] Common [facility] bmi 2022-01-18 08:45:00 34.01 kg/m2 Common S pirit - [facility] blood pressure 2022-01-18 08:45:00 130 mm[Hg] [facility] systolic [facility] blood pressure 2022-01-18 08:45:00 80 mm[Hg] [facility] diastolic [facility] height 2021-12-21 10:00:00 63 [in_i] Common [facility] weight 2021-12-21 10:00:00 192 [lb_av] Common [facility] temperature 2021-12-21 10:00:00 97.8 [degF] Common [facility] bmi 2021-12-21 10:00:00 34.01 kg/m2 Common S pirit - [facility] blood pressure 2021-12-21 10:00:00 128 mm[Hg] [facility] systolic [facility] blood pressure 2021-12-21 10:00:00 78 mm[Hg] [facility] diastolic [facility] Systolic blood 2021-10-28 06:27:00 174 mm[Hg] Univer sity of pressure [facility] Diastolic blood 2021-10-28 06:27:00 119 mm[Hg] Unive rsity of pressure [facility] Heart rate 2021-10-28 06:27:00 88 /min Universi ty of [facility] Body temperature 2021-10-28 06:27:00 36.28 Jen Univ ersity of [facility] Respiratory rate 2021-10-28 06:27:00 16 /min Univ ersity of [facility] Body height 2021-10-28 06:27:00 162.6 cm Universi ty of [facility] Body weight 2021-10-28 06:27:00 94.53 kg Universi ty of [facility] BMI 2021-10-28 06:27:00 35.77 kg/m2 Universi ty of [facility] Oxygen saturation in 2021-10-28 06:27:00 98 /min [facility] Arterial blood by [facility] Pulse oximetry Branch Systolic blood 2021-08-10 20:28:00 160 mm[Hg] Univer sity of [facility] Diastolic blood 2021-08-10 20:28:00 108 mm[Hg] Unive rsity of [facility] Heart rate 2021-08-10 20:28:00 73 /min Universi ty of [facility] Body temperature 2021-08-10 20:28:00 36.61 Jen Univ ersity of [facility] Respiratory rate 2021-08-10 20:28:00 17 /min Univ ersity of [facility] Body height 2021-08-10 20:28:00 162.6 cm Universi ty of [facility] Body weight 2021-08-10 20:28:00 88.905 kg Universi ty of [facility] Branch BMI 2021-08-10 20:28:00 33.64 kg/m2 Universi ty of [place] [facility] Oxygen saturation in 2021-08-10 20:28:00 100 /min University of Arterial blood by [place] [facility] Pulse oximetry Branch Systolic blood 2021-04-26 [...] /min University of Arterial blood by [place] [employer] ricardo Pulse oximetry Branch Systolic blood 2021-04-15 [...] /min University of Arterial blood by [place] [employer] ricardo Pulse oximetry Branch Systolic blood 2020-05-09 [...] 99 /min University of Arterial blood by [place] [employer] ricardo Pulse oximetry Branch Body temperature 2020-05-09 [...] 99 /min University of Arterial blood by [place] [employer] ricardo Pulse oximetry Branch Body temperature 2020-05-09 [...] 2019-10-01 22:46:00 100 /min Universi ty [facility] [place] [facility] Body temperature 2019-10-01 22:46:00 36.67 Jen Univ ersity [facility] [place] [facility] Respiratory rate 2019-10-01 22:46:00 16 /min Univ ersity [facility] [place] [facility] Body height 2019-10-01 22:46:00 160 cm Universi ty [facility] [place] [facility] Body weight 2019-10-01 22:46:00 88.451 kg Universi ty [facility] [place] [facility] BMI 2019-10-01 22:46:00 34.54 kg/m2 Universi ty [facility] [place] [facility] Oxygen saturation in 2019-10-01 22:46:00 100 /min University of Arterial blood by [facility] Pulse oximetry Branch Systolic blood 2019-10-01 22:46:00 172 mm[Hg] Univer sity of pressure [place] [facility] Diastolic blood 2019-10-01 22:46:00 88 [...] 2019-10-01 22:46:00 34.54 kg/m2 Universi ty of [place] [facility] Oxygen saturation in 2019-10-01 22:46:00 100 /min University of Arterial blood by [facility] Pulse oximetry Branch Diastolic blood 2018-12-30 19:59:00 107 mm[Hg] Unive rsity of pressure [place] [facility] Heart rate 2018-12-30 19:59:00 85 /min Universi ty [facility] [place] [facility] Body temperature 2018-12-30 19:59:00 37 Jen Univ [facility] [place] [facility] Respiratory rate 2018-12-30 19:59:00 16 /min Univ ers[facility] [place] [facility] Body weight 2018-12-30 19:59:00 86.183 kg Universi ty [facility] [place] [facility] BMI 2018-12-30 19:59:00 32.61 kg/m2 Universi ty [facility] [place] Oxygen saturation in 2018-12-30 19:59:00 100 /min University of Arterial blood by [facility] Pulse oximetry Branch Systolic blood 2018-12-30 19:59:00 165 mm[Hg] Univer sity of pressure [place] [facility] [place] Diastolic blood 2018-12-30 19:59:00 107 mm[Hg] Unive rsity of [facility] Heart rate 2018-12-30 19:59:00 85 /min Universi ty [facility] Body temperature 2018-12-30 19:59:00 37 Jen [facility] Respiratory rate 2018-12-30 19:59:00 16 /min [facility] Body weight 2018-12-30 19:59:00 86.183 kg Universi [facility] BMI 2018-12-30 19:59:00 32.61 kg/m2 Universi [facility] Oxygen saturation in 2018-12-30 19:59:00 100 /min University of Arterial blood by [facility] Pulse oximetry Branch Systolic blood 2018-12-30 19:59:00 165 mm[Hg] Univer sity of pressure [facility] Procedures Procedure Date / Time Performed Performing Clinician Sourc e EXTERNAL PROVIDER 2022-11-14 05:01:00 Doctor Unassigned, No [facility] RECORDS [facility] URINE CULTURE 2022-08-01 19:56:00 Rain Chu [facility] ASSIGNMENT OF BENEFITS 2022-08-01 14:08:22 Doctor Unassigned, No [facility] POCT URINALYSIS W/O 2022-08-01 00:00:00 Rain Chu [facility] SPECIFIC GRAVITY [facility] POCT TEST 2022-03-24 05:17:00 Wali [facility] CONSENT/REFUSAL FOR 2022-03-24 04:14:52 Doctor Unassigned, No [facility] [place] DI[facility]NOS[facility] AND Name Medical Branch TREATMENT CONSENT/REFUSAL FOR 2022-01-26 05:28:11 Doctor Unassigned, No [facility] [place] DIAGNOSIS AND Name Medical Branch TREATMENT CONSENT/REFUSAL FOR 2021-10-28 06:12:45 Doctor Unassigned, No [facility] [place] DIAGNOSIS AND Name Medical Branch TREATMENT NOTICE OF PRIVACY 2021-08-10 20:22:03 Doctor Unassigned, No Univ ersity of [facility] Name Medical Branch CONSENT/REFUSAL FOR 2021-08-10 20:20:00 Doctor Unassigned, No [facility] [place] DIAGNOSIS AND Name Medical Branch TREATMENT [place] INJECTION AA&/STRD 2021-04-26 02:11:49 Chris Rodriguez [facility] N[facility]E EACH Medical Br anch BRANCH POCT TEST 2021-04-26 01:11:00 Chris Rodriguez [facility] NOTICE OF PRIVACY 2021-04-26 00:35:44 Doctor Unassigned, No Univ ersity [facility] Name Medical Branch CONSENT/REFUSAL FOR 2021-04-26 00:35:26 Doctor Unassigned, No Un i[facility]ity [facility] DIAGNOSIS AND Name Medical Branch TREATMENT POCT TEST 2021-04-15 04:16:00 Sarah Joel [facility] NOTICE OF PRIVACY 2021-04-15 03:49:11 Doctor Unassigned, No [facility] Name Medical Branch CONSENT/REFUSAL FOR 2021-04-15 03:42:10 Doctor Unassigned, No [facility] [place] DIAGNOSIS AND Name Medical Branch TREATMENT TEST, SERUM 2020-05-09 06:50:00 Faby Stone [facility] HB ABO GROUPING 2020-05-09 06:50:00 Faby Stone [facility] BASIC METABOLIC PANEL 2020-05-09 06:39:00 Faby Stone [facility] (NA, K, CL, CO2, Medical Branch GLUCOSE, BUN, CREATININE, CA) CBC WITH DIFF 2020-05-09 06:39:00 Faby Stone [facility] URINALYSIS 2020-05-09 06:39:00 Faby Stone [facility] POCT TEST 2020-05-09 06:31:00 Faby Stone [facility] NOTICE OF PRIVACY 2020-05-09 06:12:27 Doctor Unassigned, No [facility] [place] [facility]ACT[facility] Name Medical Branch CONSENT/REFUSAL FOR 2020-05-09 [...] (ID NOW RAPID 2019-10-01 23:52:00 Braydon Lee [facility]) Medical Branch CONSENT/REFUSAL FOR 2019-10-01 22:35:59 Doctor Unassigned, No [facility] [place] DIAGNOSIS AND Name Medical Branch TREATMENT URINALYSIS 2018-12-30 21:08:00 Myrna Myers [facility] POCT TEST 2018-12-30 21:08:00 Myrna Myers [facility] NOTICE OF PRIVACY 2018-12-30 19:33:39 Doctor Unassigned, No [facility] Name [facility] Branch Plan of Care [...] Flaquito es Test 00:00:00 malignant neoplasm of [facility] cervix (procedure) [code = 319939495] Future Scheduled 2007-11-[address] [facility] Fla[facility] Test 00:00:00 malignant neoplasm of [facility] cervix (procedure) [code = 127208732] Future Scheduled 2005 DTAP/TDAP/TD VACCINES CH I [...] Type Clinicians Facility Department ID 2022-10-26 Outpatient Zackery, [facility] [id number] Common 11:24:01 Guy [id number] [facility] 2022-03-28 [facility] [id number] Common 10:06:03 Guy [facility] 2022-03-25 Outpatient Vizcarra, [facility] [id number] Common 10:29:00 Guy [facility] 2022-03-24 [facility] [id number] Common 11:51:02 Guy [facility] 2022-02-27 [facility] [id number] Common 10:44:05 Guy [facility] 2022-02-02 [facility] [id number] Common 10:37:04 Guy [facility] 2022-01-16 [facility] [id number] Common 09:19:02 Guy [facility] 2021-12-21 [facility] [id number] Common 10:09:03 Guy [facility] 2022-12-19 2022-12-19 Outpatient R [facility]IN [facility] B [id number] Univers 15:30:00 15:30:00 RAIN CHU [facility] 2022-12-19 2022-12-19 Laquey Kimberley [facility] 1.2.840.11 [id number] [facility] 00:00:00 00:00:00 Rain MEZA 350.1.13.10 it y of WOMEN'S 4.2.7.2.686 [facility] [id number] [place] [address] Branch 2022-11-28 2022-11-28 Outpatient R KIMBERLEY [facility] B [id number] Univers 16:30:00 16:30:00 RAIN CHU [facility] 2022-11-14 2022-11-14 Tatyana SULLIVAN 1.2.840.114 [id number] Univers 00:00:00 00:00:00 Only Unassigned, MELANY 350.1.13.10 ity of [place] [facility] 4.2.7.2.686 Jonathan as [id number] [facility] 009 Branch 2022-11-14 2022-11-14 Patient Doctor [facility] 1.2.840.114 [id number] Univers 00:00:00 00:00:00 Secure Msg Unassigned, [place] 350.1.13.10 ity [place] [facility] [id number] [place] [address] 2022-11-13 2022-11-13 Telephone [facility] 1.2.840.11 [id number] Univers 00:00:00 00:00:00 Rain MEZA 350.1.13.10 it [place] [id number] [address] 2022-10-31 2022-10-31 Telephone [facility] 1.2.840.11 [id number] Univers 00:00:00 00:00:00 Rain MEZA 350.1.13.10 it [place] [id number] [address] 2022-10-26 2022-10-26 Outpatient R [facility]IN [facility] B [id number] Univers 12:39:42 23:59:00 RAIN CHU ity [facility] 2022-10-26 2022-10-26 [facility] 1.2.840.114 1 [id number] Univers 12:39:42 23:59:00 Encounter Rain CALIX 350.1.13.10 ity [facility] 4.2.7.2.[place] [id number] [facility] 806 Branch 2022-09-18 2022-09-18 Outpatient R RAIN [facility] B [id number] Univers 00:00:00 00:00:00 TRIRAIN BAIRDarian [facility] 2022-09-14 2022-09-14 Outpatient ANAMARIA PALMER [facility] [id number] SLE 00:00:00 00:00:00 ASHLEY 2022-08-04 2022-08-04 Outpatient R [facility] B [id number] Univers 11:00:00 11:00:00 DERECKRAIN BLANKENSHIParian [facility] 2022-08-01 2022-08-01 Outpatient R [facility]IN [facility] B [id number] Univers 09:00:00 09:58:49 KIMBERLEYRAINarian [facility] 2022-08-01 2022-08-01 Office Kimberley [facility] 1.2.840.114 [id number] Univers 09:00:00 09:58:49 Visit Rain MEZA 350.1.13.10 it y of WOMEN'S 4.2.7.2.686 [facility] HEALTH [id number] [facility] 134 Branch 2022-08-01 2022-08-01 Orders Doctor NATE 1.2.840.114 [id number] Univers 00:00:00 00:00:00 Only Unassigned, MELANY 350.1.13.10 ity of [place] [facility] 4.2.7.2.686 Jonathan [id number] [facility] 009 Branch 2022-05-19 2022-05-19 (TEL) STLMLC STLMLC [id number] Co mmon 00:00:00 00:00:00 [facility] 2022-03-29 2022-03-29 (TEL) STLMLC STLMLC [id number] Co mmon 00:00:00 00:00:00 [facility] 2022-03-23 2022-03-24 Emergency X [facility] ERT [id number] Univers 22:30:00 00:21:00 WALI pereira [facility] 2022-03-23 2022-03-24 Emergency [facility] 1.2.840.114 [id number] Univers 22:30:00 00:21:00 Wali CALIX 350.1.13.10 i ty of [place] 4.2.7.2.686 [facility] [id number] [place] 990064 Branch 2022-03-23 2022-03-23 (TEL) STLMLC STLMLC [id number] Co mmon 00:00:00 00:00:00 [facility] 2022-02-28 2022-02-28 PREV VISIT STLMLC STLMLC [id number] Common 00:00:00 00:00:00 EST AGE Spirit 18-39 - [facility] 2022-02-24 2022-02-24 (TEL) STLMLC STLMLC [id number] Co mmon 00:00:00 00:00:00 [facility] 2022-01-30 2022-01-30 (TEL) STLMLC STLMLC [id number] Co mmon 00:00:00 00:00:00 [facility] 2022-01-27 2022-01-27 (TEL) STLMLC STLMLC [id number] Co mmon 00:00:00 00:00:00 [facility] 2022-01-26 2022-01-26 Emergency X AUFDERIDE [facility] ERT [id number] Univers 00:38:00 01:14:00 , LUZ MARINA weissy of [facility] 2022-01-26 2022-01-26 [facility] 1.2.840.114 [id number] Univers 00:38:00 01:14:00 , Luz Marina CALIX 350.1.13.10 i ty of [place] 4.2.7.2.686 [facility] [id number] [place] [address] Branch 2022-01-18 2022-01-18 OFFICE STLMLC STLMLC [id number] Co mmon 00:00:00 00:00:00 VISIT EST Spir it PT LEVEL 3 - [facility] 2022-01-11 2022-01-11 (TEL) STLMLC STLMLC [id number] Co mmon 00:00:00 00:00:00 [facility] 2022-01-05 2022-01-05 (TEL) STLC STLC [id number] Co mmon 00:00:00 00:00:00 [facility] 2021-12-22 2021-12-22 (TEL) STLMLC STLMLC [id number] Co mmon 00:00:00 00:00:00 [facility] 2021-12-21 2021-12-21 [facility] [id number] Co mmon 00:00:00 00:00:00 VISIT [facility] it PT LEVEL 3 - [facility] 2021-10-28 2021-10-28 Emergency [facility] ERT [id number] Univers 01:33:00 02:01:00 JARED kelli [facility] 2021-10-28 2021-10-28 Emergency YaFormerly [facility] 1.2.832.453 [id number] Univers 01:33:00 02:01:00 Jared CALIX 350.1.13.10 ity [facility] 4.2.7.2.6 [facility] [id number] [address] 2021-08-10 2021-08-10 Emergency X ESPINO, [facility] ERT [id number] Univers 15:29:00 16:34:00 OFELIA pereira [facility] 2021-08-10 2021-08-10 Emergency [facility] 1.2.119.190 [id number] Univers 15:29:00 16:34:00 Ofelia CALIX 350.1.13.10 i ty of [place] [address].7.[address] [place] [id number] 2021-04-25 2021-04-25 Emergency [facility] [id number] Univers 18:47:00 20:45:00 CHRIS pereira [facility] 2021-04-25 2021-04-25 Emergency JenniferCentinela [facility] 1.2.840.114 [id number] Univers 18:47:00 20:45:00 Chris CALIX 350.1.13.10 i ty of [place] 4.2.7.2.686 [facility] [id number] [address] 2021-04-14 2021-04-14 Emergency Marycruz [facility] 1.2.452.915 [id number] Univers 22:04:00 23:00:00 Sarah CALIX 350.1.13.10 ity of [facility] 4.2.7.2.686 [facility] [id number] [address] 2021-04-14 2021-04-14 Emergency [facility] ERT [id number] Univers 22:04:00 23:00:00 SARAH pereira [facility] 2020-05-09 2020-05-09 Emergency [facility] [id number] [id number] Univers 00:11:00 03:03:00 Faby Velezton 350.1.13.10 i ty of [place] 4.2.7.2.686 [facility] [id number] [address] 2020-05-09 2020-05-09 Emergency [facility] 1.2.149.062 [id number] 00:11:00 03:03:00 Faby Calix 350.1.13.10 [place] 4.2.7.2.6 [place] [id number] [employer] 2020-05-09 2020-05-09 Emergency [facility] ERT [id number] Univers 00:11:00 00:11:00 FABY pereira [facility] 2019-10-01 2019-10-01 Emergency Braydon Lee [facility] 1.2.840.114 [id number] Univers 17:49:15 20:06:00 Pat [place] 350.1.13.10 i ty of [place] 4.2.7.2.686 [facility] [id number] [address] 2019-10-01 2019-10-01 Emergency Braydon Lee [facility] 1.2.840.114 [id number] 17:49:15 20:06:00 Pat [place] 350.1.13.10 [place] 4.2.7.2.686 [place] [id number] [employer] 2019-10-01 2019-10-01 Emergency X [facility] ERT [id number] Univers 17:36:00 17:36:00 ity [facility] 2018-12-30 2018-12-30 Emergency [facility] 1.2.681.047 [id number] Univers 14:58:03 17:46:00 Myrna Curtis VelezLiberty 350.1.13.10 i ty of [place] 4.2.7.2.686 [facility] [id number] [address] 2018-12-30 2018-12-30 Emergency [facility] 1.2.272.478 [id number] 14:58:03 17:46:00 Myrna R [place] 350.1.13.10 [place] 4.2.7.2.686 [place] [id number] 084 Results Test Description Test Time Test [...] code = 3257) positive Negative - Negative [facility] URINAL[facility] W/O SPECIFIC [id number] 14:43:00 Test Item Value Reference Range Interpretation [...] code = 3257) positive Negative - Negative [facility] [place] [facility]PO[facility] [id number] 05:17:00 Test Item Value Reference Range Interpretation Comments POCT PREG (test code = 1605) negative On board controls acceptable with positive C Line (test code = 3574) POCT PREG LOT # (test code = 3575) [id number] POCT PREG TEST DATE (test 07/15/2023 code = 3576) Lab Interpretation (test code = Normal 54647-8) [facility] [place] [facility]PO[facility] [id number] 01:11:00 Test Item Value Reference Range Interpretation Comments POCT PREG (test code = 1605) negative On board controls acceptable with present C Line (test code = 3574) POCT PREG LOT # (test code = 3575) [id number] POCT PREG TEST DATE (test 06/13/2022 code = 3576) Lab Interpretation (test code = Normal 65709-2) [facility] [place] [facility]PO[facility] [id number] 04:16:00 Test Item Value Reference Range Interpretation Comments POCT PREG (test code = 1605) neg On board controls acceptable with yes C Line (test code = 3574) POCT PREG LOT # (test code = 3575) [id number] POCT PREG TEST DATE (test 06/13/2022 code = 3576) Lab Interpretation (test code = Normal 91597-5) [facility] [place] [facility] ResourcesPREGNANCY TEST, [id number] 07:35:00 Test Item Value Reference Range Interpretation Comments PREG SERUM (test code Negative = 1616587956) AL (test code = AL) Less than 10 IU/L. ?If low titer or ectopic is suspected, resubmit specimen in 48-72 hours. [facility] [place] [facility] ResourcesType and Screen - ONCE [id number] 07:34:36 Test Item Value Reference Range Interpretation Comments ABO & RH (test code O Positive Performe d at [facility] = 20) Laboratory Serv [facility] [address] [place], [place] [address]Toll Free: [phone] A No. [id number] IAT (test code = Negative Performed a t [place] 1185) Laboratory [facility] [address] [place], [place] [address]Toll Free: [phone] A No. [id number] [facility] [place] [facility] ResourcesURINALYSIS2021-01-24 07:28:00 Test Item Value Reference Range Interpretation Comments APPEARANCE (test code = Clear Clear 5624091822) COLOR (test code = Red Yellow A 8340022180) PH (test code = 4.8-8.0 6802607475) SP GRAVITY (test code = 1.003-1.030 L 2639219814) GLU U QUAL (test code = Normal Normal 3814308076) BLOOD (test code = 3+ Negative A 6102721406) KETONES (test code = Negative Negative 5405707658) PROTEIN (test code = 30 mg/dL Negative A 2887-8) UROBILIN (test code = Normal Normal 0201172290) BILIRUBIN (test code = Negative Negative 4876787330) NITRITE (test code = Negative Negative 3820871556) LEUK RANJANA (test code = 25/uL Negative A 8171030510) RBC/HPF (test code = See_Comment H [Autom ated message] 8030570381) The system [employer] generated this result transmitted ref erence range: 0 - 3 HP F. The reference range was not used to int erpret this result as normal/abnormal . WBC/HPF (test code = See_Comment H [Autom ated message] 0211303961) The system [employer] generated this result transmitted ref erence range: 0 - 5 HP F. The reference range was not used to int erpret this result as normal/abnormal . BACTERIA (test code = Few Negative A 1834466206) SQ EPITH (test code = <1 HPF 6061384418) Lab Interpretation (test Abnormal code = 64946-0) [facility] (NA, K, CL, CO2, GLUCOSE, BUN, CREATININE, CA)2020-05-09 07:11:00 Test Item Value Reference Range Interpretation Comments NA (test code = 138 mmol/L 135-145 6926546526) K (test code = 3.7 mmol/L 3.5-5 1745472760) CL (test code = 105 mmol/L 98-108 3607645090) CO2 TOTAL (test code = 23 mmol/L 23-31 9835332758) AGAP (test code = 2-16 8045480309) BUN (test code = 14 mg/dL 7-23 2143748897) GLUCOSE (test code = 101 mg/dL 70-110 2883687832) CREATININE (test code 0.61 mg/dL 0.5-1.04 = 8533649538) CALCIUM (test code = 9.2 mg/dL 8.6-10.6 6277595406) eGFR Calculation mL/min/1.73m2 (Non-) (test code = 5629464458) eGFR Calculation mL/min/1.73m2 () (test code = 4405270396) AL (test code = AL) Association of [...] or urine or abnormalities in imaging tests). General acute hospital WITH [id number] 06:47:00 Test Item Value Reference Range Interpretation [...] RDW-SD (test code = 46.9 fL 39-49.9 17100-5) RDW-CV (test code = 16.3 % 12-15.5 H 788-0) PLT (test code = See_Comment [Automated 777-3) message] The sy stem which generated this result transmitted reference range : 166 - 358 10*3/ ?L. The reference r duane was not used to interpret this result as normal/abnormal . MPV (test code = 10.7 fL 9.5-12.9 04345-5) NRBC/100 WBC (test See_Comment [Automat ed code = 6394065599) message] The system which generated this result transmitted reference range : 0.0 - 10.0 /100 WBCs. The refer ence range was not u sed to interpret th is result as normal/abnormal . NRBC x10^3 (test code <0.01 See_Comment [Auto mated = 8718779787) message] The s ystem which generated this result transmitted reference range : 10*3/?L. The reference range was not used to interpret this result as normal/abnormal . GRAN MAT (NEUT) % 56.2 % (test code = 770-8) IMM GRAN % (test code 0.00 % = 1221350658) LYMPH % (test code = 33.9 % 736-9) MONO % (test code = 6.9 % 5905-5) EOS % (test code = 2.4 % 713-8) BASO % (test code = 0.6 % 706-2) GRAN MAT x10^3(ANC) 2.62 10*3/uL 1.88-7.09 (test code = 1596384811) IMM GRAN x10^3 (test <0.03 0-0.06 code = 9805877129) LYMPH x10^3 (test code 1.58 10*3/uL 1.32-3.29 = 731-0) MONO x10^3 (test code 0.32 10*3/uL 0.33-0.92 L = 742-7) EOS x10^3 (test code = 0.11 10*3/uL 0.03-0.39 711-2) BASO x10^3 (test code 0.03 10*3/uL 0.01-0.07 = 704-7) Lab Interpretation Abnormal (test code = 48874-2) [facility] [place] [facility] [id number] 06:31:00 Test Item Value Reference Range Interpretation Comments POCT PREG (test code = 1605) negative On board controls acceptable with positive C Line (test code = 3574) POCT PREG LOT # (test code = 3575) [id number] POCT PREG TEST DATE (test 02/12/2021 code = 3576) Lab Interpretation (test code = Normal 93430-9) [facility] [place] [facility] ResourcesCOVID-19 (ID NOW RAPID TESTING)2019-10-02 00:40:00 Test Item Value Reference Range Interpretation Comments SARS-CoV-2 Rapid ID NOW Positive Not Detected A (test code = 27642-8) AL (test code = AL) ID NOW COVID-19 Assay is an isothermal nucleic acid amplification test intended for the qualitative detection of nucleic acid from SARS-CoV-2 viral RNA in nasopharyngeal (ADVENTURE GUIDE) specimens. It is used under Emergency Use [...] indicated. Lab Interpretation Abnormal (test code = 34294-4) [facility] [place] [facility] ResourcesURINALYSIS2019-09-16 22:04:00 Test Item Value Reference Range Interpretation Comments APPEARANCE (test code = Clear Clear 4855135221) COLOR (test code = Straw Yellow A 5993575216) PH (test code = 4.8-8.0 3643737084) SP GRAVITY (test code = 1.003-1.030 0840104174) GLU U QUAL (test code = Normal Normal 3273455475) BLOOD (test code = Negative Negative 9311297155) KETONES (test code = Negative Negative 0333016299) PROTEIN (test code = Negative Negative 2887-8) UROBILIN (test code = Normal Normal 5106126945) BILIRUBIN (test code = Negative Negative 9048911979) NITRITE (test code = Negative Negative 4457404470) LEUK RANJANA (test code = 25/uL Negative A 5457516665) RBC/HPF (test code = See_Comment [Autom ated message] 5224555109) The system [employer] generated this result transmitted ref erence range: 0 - 3 HP F. The reference range was not used to int erpret this result as normal/abnormal . WBC/HPF (test code = See_Comment [Autom ated message] 1204827180) The system [employer] generated this result transmitted ref erence range: 0 - 5 HP F. The reference range was not used to int erpret this result as normal/abnormal . BACTERIA (test code = Negative Negative 0692630323) SQ EPITH (test code = HPF 1347692976) Lab Interpretation (test Abnormal code = 85436-8) [facility] [place] [facility]PO[facility] [id number] 21:08:00 Test Item Value Reference Range Interpretation Comments POCT PREG (test code = 1605) negative On board controls acceptable with present C Line (test code = 3574) POCT PREG LOT # (test code = 3575) [id number] POCT PREG TEST DATE (test 04-15-2020 code = 3576) Lab Interpretation (test code = Normal 69376-4) [facility]"
[2023-01-18 21:18] LABS: Potassium 3.3 mEq/L (3.5-5.1)
[2023-01-18 21:35] LABS: Absolute Lymphocytes (CBC) 1.2 K/uL (0.7-4.9); Hematocrit 16.2 % (36.0-45.0); Lymphocytes % 27.3 % (15.3-44.8); MCV 68.8 fL (80-100); Platelets 295 thou/uL (152-406); RBC Red Blood Cell Count 2.36 M/uL (3.86-4.86)
[2023-01-18 21:40] LABS: Blood Morphology Comment NOTED (NOT SEEN); Hypochromasia 1+; Platelet Estimate ADEQ; White Blood Cell Scan OK (OK)
[2023-01-18] MEDS ORDERED: NA CHLORIDE 0.9% 500 ML ONE (22:29)
[2023-01-18] MEDS ORDERED: POTASSIUM 25 MEQ EFFERV TAB ONE (23:11)
--- NOTE | 2023-01-19 02:31 | ER ---
Nurse's Notes [facility] Name: Joyce Mera Age: 37 yrs Sex: Female : 1985 Arrival Date: 01/18/2023 Time: 20:22 Bed 19 Private MD: Diagnosis: Acute posthemorrhagic anemia;Other specified abnormal uterine and vaginal bleeding Presentation: 01/18 20:34 Chief complaint: Patient states: she was sent by PCP for having low blood count. ap3 patient states she has been having here cycle and it has been heavy. Coronavirus screen: At this time, the client does not indicate any symptoms associated with coronavirus-19. Ebola Screen: No symptoms or risks identified at this time. Initial Sepsis Screen: Does the patient meet any 2 criteria? No. Patient's initial sepsis screen is negative. Does the patient have a suspected source of infection? No. Patient's initial sepsis screen is negative. Risk Assessment: Do you want to hurt yourself or someone else? Patient reports no desire to harm self or others. Onset of symptoms is unknown. 20:34 Method Of Arrival: Ambulatory ap3 20:34 Acuity: ALICIA 3 ap3 Triage Assessment: 20:36 Headache History: The patient has had previous headaches and this one is similar to ap3 previous episodes. General: Appears uncomfortable, Behavior is calm, cooperative, appropriate for age. General: Reports fatigue for. Pain: Complains of pain in abdomen Pain currently is 9 out of 10 on a pain scale. Pain began gradually. Pain: Also complains of nausea. Neuro: Level of Consciousness is awake, alert, obeys commands, Oriented to person, place, time, situation. Cardiovascular: Patient's skin is warm and dry. Respiratory: Airway is patent Respiratory effort is even, unlabored, Respiratory pattern is regular, symmetrical. GI: Reports nausea. MANAGER TARGET: 20:37 LMP 01/11/2023, unknown ap3 Historical: - Allergies: 20:36 No Known Allergies; ap3 - PMHx: 20:36 Anemia; Anemia; Anxiety; Anxiety; blood transfusion; Hypertension; ap3 - PSHx: 20:36 section; ap3 - Immunization history:: Client reports having NOT received the Covid vaccine. - Social history:: Smoking status: Reported history of juuling and/or vaping. Screenin:37 [facility] ED Fall Risk Assessment (Adult) History of falling in the last 3 months, ap3 including since admission No falls in past 3 months (0 pts). Abuse screen: Denies threats or abuse. Nutritional screening: No deficits noted. Tuberculosis screening: No symptoms or risk factors identified. Assessment: 20:43 General: Appears in no apparent distress. comfortable, Behavior is calm, cooperative, jj7 appropriate for age. Pain: Denies pain. 21:37 Reassessment: HGB 4.9 PER LAB. bp 01/19 01:02 Reassessment: Patient and/or family updated on plan of care and expected duration. Pain ha1 level reassessed. Patient is alert, oriented x 3, equal unlabored respirations, skin warm/dry/pink. Vital Signs: 01/18 20:34 BP 145 / 91; Pulse 95; Resp 18; Temp 98.8; Pulse Ox 100% ; Weight 74.84 kg; Height 5 ap3 ft. 4 in. ; Pain 9/10; 21:30 BP 138 / 82; Pulse 86; Resp 17; Pulse Ox 100% ; jj7 22:24 BP 129 / 85; Pulse 88; Resp 19; Pulse Ox 100% ; Pain 0/10; jj7 23:30 BP 144 / 90; Pulse 80; Resp 19; Pulse Ox 100% ; Pain 0/10; jj7 01/19 00:30 BP 117 / 65; Pulse 79; Resp 18; Pulse Ox 100% ; jj7 01:03 BP 128 / 83; Pulse 80; Resp 18 S; Pulse Ox 99% on R/A; ha1 02:00 BP 110 / 69; Pulse 74; Resp 18; Pulse Ox 99% ; jj7 03:00 BP 124 / 75; Pulse 77; Resp 16; Pulse Ox 98% ; jj7 04:00 BP 130 / 86; Pulse 71; Resp 17; Pulse Ox 99% ; jj7 04:50 BP 122 / 73; Pulse 60; Resp 17; Pulse Ox 100% ; Pain 0/10; jj7 01/18 20:34 Body Mass Index 28.32 (74.84 kg, 162.56 cm) ap3 01/18 20:34 Pain Scale: Adult ap3 22:24 Pain Scale: Adult jj7 23:30 Pain Scale: Adult jj7 04:50 Pain Scale: Adult jj7 [place] Coma Score: 01/18 23:15 Eye Response: spontaneous(4). Motor Response: obeys commands(6). Verbal Response: sb4 oriented(5). Total: 15. ED Course: 20:24 Patient arrived in ED. jj6 20:25 Marguerite Baeza PA-C is PHCP. sb4 20:25 Dieter Jimenez MD is Attending Physician. sb4 20:36 Triage completed. ap3 20:37 Arm band placed on left wrist. ap3 20:42 Aster Magana RN is Primary Nurse. jj7 20:43 Patient has correct armband on for positive identification. Bed in low position. Call jj7 light in reach. Warm blanket given. 20:43 Inserted saline lock: 22 gauge in right antecubital area, using aseptic technique. jj7 Blood collected. 01/19 02:30 Guy Vizcarra DO is Referral Physician. sb4 04:50 Provided Education on: Blood Transfusion. jj7 04:50 No provider procedures requiring assistance completed. IV discontinued, intact, jj7 bleeding controlled, No redness/swelling at site. Pressure dressing applied. Administered Medications: 01/18 23:07 Drug: Potassium PO Effervescent Tablet 50 mEq PO once; dissolve in 4 ounces of water or jj7 juice Route: PO; 01/19 03:05 Follow up: Response: No adverse reaction jj7 04:15 Follow up: Response: No adverse reaction jj7 04:14 Drug: Calcium Gluconate IVPB 2 grams IVPB once over 60 mins; (mix in NS 100 mL) Route: jj7 IVPB; Infused Over: 60 mins; Site: left antecubital; 04:50 Follow up: IV Status: Infusion continued jj7 Medication: 01/18 20:43 VIS not applicable for this client. jj7 Outcome: 01/19 02:30 Discharge ordered by . sb4 04:50 Discharged to home ambulatory, jj7 04:50 Condition: improved 04:50 Discharge instructions given to patient, Instructed on discharge instructions, follow up and referral plans. Demonstrated understanding of instructions, follow-up care, 05:00 Patient left the ED. jj7 Signatures: Constantine Olson RN RN bp Roselia Silverman RN RN ap3 Deyanira Mendoza jj6 Rosa Edwards RN RN ha1 Aster Magana RN RN jj7 Marguerite Baeza PA-C PA-C sb4
--- NOTE | 2023-01-19 02:31 | EDPHYS ---
Physician Documentation [facility] Name: Joyce Mera Age: 37 yrs Sex: Female : 1985 Arrival Date: 01/18/2023 Time: 20:22 Bed 19 Private MD: ED Physician Dieter Jimenez HPI: 01/18 22:14 This 37 yrs old Female presents to ER via Ambulatory with complaints of weakness, low sb4 hgb. 23:15 The patient has been recently seen by a physician: the patient's primary care provider, sb4 yesterday. Patient presents with complaints of fatigue, weakness. She has history of heavy bleeding with her menstrual cycles that sometimes require blood transfusions. She states that she started her menstrual cycle 2 days ago and saw her PCP yesterday who checked a CBC. She was called with the results this evening and was told her hemoglobin was 5.7 and to come to the ED for a blood transfusion. She states that she is still having active bleeding with passage of clots. She does endorse fatigue, feeling generally unwell. 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 - Social history:: Smoking status: Reported history of juuling and/or vaping. ROS: 23:15 Cardiovascular: Negative for chest pain, palpitations, and edema, sb4 23:15 Constitutional: Positive for fatigue, 23:15 : Positive for vaginal bleeding, 23:15 All other systems are negative, Exam: 23:15 Head/Face: Normocephalic, atraumatic. Eyes: Extra-ocular motions intact. Periorbital sb4 areas with no swelling, redness, or edema. ENT: Mucous membranes moist. Cardiovascular: Regular rate and rhythm with a normal S1 and S2. Respiratory: Lungs have equal breath sounds bilaterally, clear to auscultation and percussion. No rales, rhonchi or wheezes noted. No increased work of breathing, no retractions or nasal flaring. Skin: Warm, dry with normal turgor. Normal color with no rashes, no lesions, and no evidence of cellulitis. MS/ Extremity: Pulses equal, no cyanosis. Neurovascular intact. Full, normal range of motion. Neuro: Awake and alert, GCS 15, oriented to person, place, time, and situation. Motor strength 5/5 in all extremities. Sensory grossly intact. 23:15 Constitutional: The patient appears in no acute distress, alert, awake, pale, Vital Signs: 20:34 BP 145 / 91; Pulse 95; Resp 18; Temp 98.8; Pulse Ox 100% ; Weight 74.84 kg; Height 5 ap3 ft. 4 in. ; Pain 9/10; 21:30 BP 138 / 82; Pulse 86; Resp 17; Pulse Ox 100% ; jj7 22:24 BP 129 / 85; Pulse 88; Resp 19; Pulse Ox 100% ; Pain 0/10; jj7 23:30 BP 144 / 90; Pulse 80; Resp 19; Pulse Ox 100% ; Pain 0/10; j7 01/19 00:30 BP 117 / 65; Pulse 79; Resp 18; Pulse Ox 100% ; j7 01:03 BP 128 / 83; Pulse 80; Resp 18 S; Pulse Ox 99% on R/A; ha1 02:00 BP 110 / 69; Pulse 74; Resp 18; Pulse Ox 99% ; 7 03:00 BP 124 / 75; Pulse 77; Resp 16; Pulse Ox 98% ; j7 04:00 BP 130 / 86; Pulse 71; Resp 17; Pulse Ox 99% ; 7 04:50 BP 122 / 73; Pulse 60; Resp 17; Pulse Ox 100% ; Pain 0/10; j7 01/18 20:34 Body Mass Index 28.32 (74.84 kg, 162.56 cm) ap3 10 20:34 Pain Scale: Adult ap3 22:24 Pain Scale: Adult jj7 23:30 Pain Scale: Adult jj7 04:50 Pain Scale: Adult jj7 [place] Coma Score: 01/18 23:15 Eye Response: spontaneous(4). Motor Response: obeys commands(6). Verbal Response: sb4 oriented(5). Total: 15. MDM: 20:31 Patient medically screened. sb4 23:15 Differential diagnosis: Differential diagnosis: Posthemorrhagic anemia, dysmenorrhea, sb4 metromenorrhagia. 23:17 Data reviewed: vital signs, nurses notes, lab test result(s), I have discussed the sb4 patient's presentation/case with the attending Emergency Department Physician; and as a result, I will discharge patient. Consideration of Admission/Observation Escalation of care including admission/observation considered. Counseling: I had a detailed discussion with the patient and/or guardian regarding the historical points, exam findings, and any diagnostic results supporting the discharge/admit diagnosis, lab results, the need for further work-up and treatment in the hospital. Refusal of service: The patient/guardian displays adequate decision making capability and despite a detailed discussion of alternatives, benefits, risks, and consequences refuses: Admission to the hospital for further work-up and treatment. ED course: I discussed patient with ED physician who recommended 4 units of blood transfusion and admission to the hospital. I discussed with the patient who refused admission stating she needs to be able to go home to take her kids to school. She will only consent to 3 units of blood at this time. She will follow-up with her PCP on Sunday. 01/19 02:30 Counseling: I had a detailed discussion with the patient and/or guardian regarding the sb4 need for outpatient follow up, an OB/Gyne specialist, she is waiting on insurance approval for hysterectomy. 01/18 20:36 Order name: Type And Screen sb4 01/18 20:36 Order name: Basic Metabolic Panel; Complete Time: 21:18 sb4 01/18 20:36 Order name: CBC with Diff; Complete Time: 21:42 sb4 01/18 21:38 Order name: CBC Smear Scan; Complete Time: 21:42 EDMS 01/18 21:44 Order name: Packed RBC Leukored EDMS 01/18 22:31 Order name: Packed RBCs (Additional Unit) EDMS 01/18 20:36 Order name: Labs collected and sent; Complete Time: 20:49 sb4 01/18 21:10 Order name: Transfuse; Complete Time: 22:57 sb4 Administered Medications: 01/18 23:07 Drug: Potassium PO Effervescent Tablet 50 mEq PO once; dissolve in 4 ounces of water or jj7 juice Route: PO; 01/19 03:05 Follow up: Response: No adverse reaction jj7 04:15 Follow up: Response: No adverse reaction jj7 04:14 Drug: Calcium Gluconate IVPB 2 grams IVPB once over 60 mins; (mix in NS 100 mL) Route: jj7 IVPB; Infused Over: 60 mins; Site: left antecubital; 04:50 Follow up: IV Status: Infusion continued jj7 Disposition: 01/18 22:35 Co-signature as Attending Physician, Dieter Jimenez MD I agree with the assessment sp4 and plan of care. I reviewed the patient's care provided by the Advanced Practice Provider and agree with the diagnosis and treatment plan. Disposition Summary: 01/19/23 02:30 Discharge Ordered Notes: Location: Home sb4 Problem: an acute exacerbation sb4 Symptoms: have improved sb4 Condition: Stable sb4 Diagnosis - Acute posthemorrhagic anemia sb4 - Other specified abnormal uterine and vaginal bleeding sb4 Followup: sb4 - With: Guy Vizcarra, DO - When: 2 - 3 days - Reason: Recheck today's complaints, Re-evaluation by your physician Discharge Instructions: - Discharge Summary Sheet sb4 - Blood Transfusion, Adult sb4 - Menorrhagia, [id number] sb4 Forms: - Medication Reconciliation Form sb4 - Thank You Letter sb4 - Antibiotic Education sb4 - Prescription Opioid Use sb4 - Patient Portal Instructions sb4 - Leadership Thank You Letter sb4 Signatures: Dispatcher [employer] Roselia Calvillo, RN RN ap3 Aster Magana RN RN jj7 Marguerite Baeza PACher PACher sb4 Dieter Jimenez MD MD sp4
[2023-01-19] MEDS ORDERED: NA CHLORIDE 0.9% 250 ML ONE (02:41)
[2023-01-19] MEDS ORDERED: CALCIUM GLUCONATE 1 GM IVPB 2 GM/100 ML BAG IV ONE (03:48)
[2023-01-19 05:15] VITALS: TEMP 98.8
[2023-01-19 05:39] VITALS: BP 122/73; O2SAT 100
== END 2023-01-19 05:00 | disposition home or self-care (01) ==
LOC: ER 20:22
PROC: 30233N1 Transfusion of Nonautologous Red Blood Cells into Peripheral Vein, Percutaneous Approach (ICD-10-PCS; principal; 2023-01-19)
DX: D62 Acute posthemorrhagic anemia (principal)
CPT/HCPCS: 96365; 85025; 80048; 36415; 86900; 86850; 86901; 86920 ×3; 99284; 36430; J0612; P9016 ×3; J7050 ×2

== ENCOUNTER → 2023-04-16 | Emergency (ER) | payer BC ==
[~2023-04-16] MED LIST: NA CHLORIDE 0.9% 1,000 ML ONE; NA CHLORIDE 0.9% 250 ML ONE
[2023-04-16 06:13] LABS: Absolute Lymphocytes (CBC) 0.9 K/uL (0.7-4.9); Hematocrit 15.2 % (36.0-45.0); Lymphocytes % 33.2 % (15.3-44.8); MCV 67.9 fL (80-100); MPV 7.1 fL (7.6-11.3); Platelets 242 thou/uL (152-406); RBC Red Blood Cell Count 2.23 M/uL (3.86-4.86)
[2023-04-16 06:34] LABS: Albumin 3.5 g/dL (3.4-5.0); Bilirubin Total 0.3 mg/dL (0.2-1.0); Potassium 3.3 mEq/L (3.5-5.1)
[2023-04-16 06:49] LABS: SARS-CoV-2 Antigen Rapid Res Negative (Negative)
--- NOTE | 2023-04-16 08:49 | RAD REPORT ---
EXAM DESCRIPTION: US - Pelvis Complete - 04/16/2023 7:23 am CLINICAL HISTORY: Pelvic pain. Vaginal bleeding COMPARISON: 2019 FINDINGS: The uterus measures 10 x 6 x 8cm. The echotexture of the uterus is heterogeneous. Endometr ial stripe poorly visualized. Several heterogeneous masses probably fibroids. The largest 2.5 centimeters The ovaries are normal in size and echotexture. The right and left adnexa unremarkable No significant free fluid is seen. IMPRESSION: Uterine fibroids Poor evaluation of the endometrial stripe. Endovaginal sonogram may be helpful. Alternatively a MRI c ould be obtained
[2023-04-16 10:42] LABS: Anisocytosis 1+; Blood Morphology Comment NOTED (NOT SEEN); Hypochromasia 3+; Platelet Estimate ADEQ; White Blood Cell Scan OK (OK)
[2023-04-16 11:23] LABS: Specific Gravity 1.025 (1.005-1.030); Urine Bacteria None Seen /HPF (<20); Urine Bilirubin NEGATIVE (Negative); Urine Blood Negative (Negative); Urine Clarity Clear (Clear); Urine Color Light-Yellow (Yellow); Urine Glucose NEGATIVE (Negative); Urine Mucus Slight /HPF (None Seen); Urine Protein NEGATIVE (Negative); Urine RBC None Seen /HPF (None Seen); Urine Urobilinogen Normal (Normal); Urine pH 5.5 (5.0-7.0)
[2023-04-16 11:24] LABS: Specific Gravity 1.025 (1.005-1.030)
--- NOTE | 2023-04-16 12:02 | EDPHYS ---
Physician Documentation [facility] Name: Joyce Mera Age: 37 yrs Sex: Female : 1985 Arrival Date: 04/16/2023 Time: 05:36 Bed 5 Private MD: ED Physician Aman Frazier HPI: 04/16 05:49 This 37 yrs old Female presents to ER via Unassigned with complaints of Flu ec2 Symptoms, Anemia. 05:49 Patient arrives today for evaluation of lightheadedness and fatigue with associated ec2 cough and cold symptoms. Patient has been having symptoms that have progressively been worsening for the past week. Patient reports that she is on her period, has pretty heavy bleeding, states that she suffers from anemia secondary to the uterine bleeding. Patient reports no issues with eating or drinking, no nausea or vomiting or diarrhea. Patient denies any urinary complaints. Does report some cough and cold symptoms.. Historical: - Allergies: 05:56 No Known Allergies; pf1 - PMHx: 05:56 Anemia; Anxiety; blood transfusion; Hypertension; pf1 05:57 chronic neck/nerve pain; pf1 - PSHx: 05:56 section; pf1 - Immunization history:: Adult Immunizations not up to date, Client reports having NOT received the Covid vaccine. Last tetanus immunization: < 5 years ago Flu vaccine is not up to date. - Social history:: Smoking status: Reported history of juuling and/or vaping. Patient/guardian denies using alcohol, street drugs. ROS: 05:49 Constitutional: as per hpi ec2 Exam: 05:49 Constitutional: GEN: NAD Head: atraumatic Eyes: EOMI Ears: External ears are ec2 normal. CV: regular rate LUNGS: no respiratory distress ABD: non-distended, soft, nontender, no guarding, not rigid SKIN: no evidence of rashes, pale MSK: no evidence of trauma NEURO: moves all extremities equally Vital Signs: 05:41 BP 143 / 88; Pulse 76; Resp 16; Temp 97.7; Pulse Ox 99% on R/A; Weight 73.48 kg; Height pf1 5 ft. 4 in. ; Pain 8/10; 07:58 BP 141 / 92; Pulse 70; Resp 15; Pulse Ox 98% ; ko1 08:40 BP 150 / 91; Pulse 68; Resp 12; Pulse Ox 99% ; ko1 10:14 BP 140 / 81; Pulse 62; Resp 14; Temp 98.6; Pulse Ox 100% ; ko1 11:42 BP 156 / 101; Pulse 60; Resp 12; Pulse Ox 100% ; ko1 12:36 BP 148 / 98; Pulse 72; Resp 16; Pulse Ox 100% ; ko1 05:41 Body Mass Index 27.81 (73.48 kg, 162.56 cm) pf1 05:41 Pain Scale: Adult pf1 MDM: 05:41 Patient medically screened. ec2 05:49 ED course: Patient arrives today for evaluation of lightheadedness, general weakness. ec2 Examination remarkable for well-appearing nontoxic individual is otherwise in no acute distress. Will obtain lab work, chest x-ray, viral swabs, type and screen, urine studies. Currently considering processes such as anemia, arrhythmia, dehydration, urinary tract infection.. 05:58 Data reviewed: vital signs. ED course: EKG independently reviewed and interpreted by ec2 me, shows normal sinus rhythm, rate of 66, no acute ST segment elevations, nonconcerning intervals.. 06:22 ED course: Patient with marked anemia noted, ordered for blood transfusion, will obtain ec2 pelvic ultrasound as well given the degree of vaginal bleeding she is having causing her anemia.. 07:00 Transition of care: After a detail discussion of the patient's case, care is ec2 transferred to Aman Frazier MD. 07:27 ED course: Plan by Dr. Lazo was to start blood transfusion and transfer her for rn gynecological evaluation. Spoke with patient, has kids at home and refuses transfer. Patient states does not have anybody to watch her kids and currently 16-year-old is watching her kids. Patient states that every time before she has had a blood transfusion here and discharged home and usually helps her. Keeps her good for a few months. Is in the middle of insurance change and checking if Dr. Alonso accept her new insurance, has been told needs hysterectomy. Patient has fibroids on ultrasound likely the cause of her menorrhagia. Patient understands risks of going home, refuses transfer. Will transfuse here and discharged home with return precautions following transfusion. 10:20 ED course: Second unit of blood almost done, will order a third. Patient already rn feeling better. Stable vital signs.. 12:00 Differential Diagnosis anemia. Counseling: I had a detailed discussion with the patient rn and/or guardian regarding the historical points, exam findings, and any diagnostic results supporting the discharge/admit diagnosis, lab results, radiology results, the need for outpatient follow up, to return to the emergency department if symptoms worsen or persist or if there are any questions or concerns that arise at home. Response to treatment: the patient's symptoms have markedly improved after treatment, and as a result, I will discharge patient. Refusal of service: The patient/guardian displays adequate decision making capability and despite a detailed discussion of alternatives, benefits, risks, and consequences refuses: Admission to the hospital for further work-up and treatment. 04/16 05:49 Order name: Type And Screen 2 04/16 05:49 Order name: CBC with Diff 2 04/16 05:49 Order name: CMP; Complete Time: 06:52 ec2 04/16 05:49 Order name: UAM 2 04/16 05:49 Order name: Test, Urine 2 04/16 05:51 Order name: SARS RAPID; Complete Time: 06:52 ec2 04/16 05:51 Order name: Influenza Screen (a \T\ B); Complete Time: 06:59 ec2 04/16 06:29 Order name: Packed RBC Leukored [facility] 04/16 10:29 Order name: Packed RBCs (Additional Unit) [facility] 04/16 10:42 Order name: CBC Smear Scan [facility] 04/16 05:49 Order name: CXR XRAY 2 04/16 07:25 Order name: Pelvis Complete; Complete Time: 09:38 [facility] 04/16 05:49 Order name: EKG; Complete Time: 05:49 ec2 04/16 05:49 Order name: EKG - Nurse/Tech; Complete Time: 05:57 ec2 04/16 06:19 Order name: Consent for Blood Transfusion; Complete Time: 06:26 ec2 04/16 06:19 Order name: IV Saline Lock; Complete Time: 06:21 ec2 Administered Medications: 06:20 Drug: NS 0.9% IV 1000 ml IV at 1 bolus Per protocol; 1000 mL bolus Route: IV; Rate: 1 lg3 bolus; Site: right antecubital; Disposition Summary: 04/16/23 12:01 Discharge Ordered Notes: Location: Home rn Condition: Stable rn Diagnosis - Anemia, unspecified rn - Leiomyoma of uterus, unspecified rn Followup: rn - With: Private Physician - When: As needed - Reason: Recheck today's complaints, Re-evaluation by your physician Discharge Instructions: - Discharge Summary Sheet rn - Anemia rn - Blood Transfusion, Adult rn - Uterine Fibroids rn Forms: - Medication Reconciliation Form rn - Thank You Letter rn - Antibiotic returned goods sorter - Prescription Opioid Use rn - Patient Portal Instructions rn - Leadership Thank You Letter induction furnace 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 Total time: 35 ec2 minutes Signatures: Dispatcher [employer] EDMS Aman Frazier MD MD rn Able, Lacie, RN RN lg3 Rachel Braun RN RN pf1 Gonzalo Lazo MD MD ec2 Corrections: (The following items were deleted from the chart) 06:27 06:19 PACKED RBC LEUKORED+BB.LAB.BRZ ordered. EDMS EDMS 06:27 06:21 ABO/RH typing ordered. EDMS EDMS 06:27 06:21 Antibody Screen ordered. EDMS EDMS 07:25 06:18 OB Limited+US.RAD.BRZ ordered. EDMS EDMS 10:47 10:17 BB Add On+BB.LAB.BRZ ordered. EDMS EDMS
--- NOTE | 2023-04-16 12:02 | ER ---
Nurse's Notes [facility] Name: Joyce Mera Age: 37 yrs Sex: Female : 1985 Arrival Date: 04/16/2023 Time: 05:36 Bed 5 Private MD: Diagnosis: Anemia, unspecified;Leiomyoma of uterus, unspecified Presentation: 04/16 05:41 Chief complaint: Patient states: lower abdominal pain with heavy menstrual cycle,onset pf1 3 days with left side chest pain, weakness, SOB and body aches for 2 days also having cough for 1 week. 05:41 Coronavirus screen: Vaccine status: Patient reports being unvaccinated. Client denies pf1 travel out of the [place] in the last 14 days. Client presents with at least one sign or symptom that may indicate coronavirus-19. Ebola Screen: Patient negative for fever greater than or equal to 101.5 degrees Fahrenheit, and additional compatible Ebola Virus Disease symptoms. Initial Sepsis Screen: Does the patient meet any 2 criteria? No. Patient's initial sepsis screen is negative. Does the patient have a suspected source of infection? No. Patient's initial sepsis screen is negative. Risk Assessment: Do you want to hurt yourself or someone else? Patient reports no desire to harm self or others. 05:41 Method Of Arrival: Wheelchair pf1 05:41 Acuity: ALICIA 3 pf1 Historical: - Allergies: 05:56 No Known Allergies; pf1 - PMHx: 05:56 Anemia; Anxiety; blood transfusion; Hypertension; pf1 05:57 chronic neck/nerve pain; pf1 - PSHx: 05:56 section; pf1 - Immunization history:: Adult Immunizations not up to date, Client reports having NOT received the Covid vaccine. Last tetanus immunization: < 5 years ago Flu vaccine is not up to date. - Social history:: Smoking status: Reported history of juuling and/or vaping. Patient/guardian denies using alcohol, street drugs. Screenin:03 [facility] ED Fall Risk Assessment (Adult) History of falling in the last 3 months, lg3 including since admission No falls in past 3 months (0 pts). Abuse screen: Denies threats or abuse. Denies injuries from another. Nutritional screening: No deficits noted. Tuberculosis screening: No symptoms or risk factors identified. Assessment: 06:03 General: Appears in no apparent distress. uncomfortable, Behavior is calm, cooperative. lg3 Pain: Complains of pain in chest and abdomen. Neuro: No deficits noted. Ybarra Agitation-Sedation Scale (RASS): 0 - Alert and Calm Level of Consciousness is awake, alert, obeys commands, Oriented to person, place, time, situation. Cardiovascular: No deficits noted. Reports chest pain, lightheadedness, shortness of breath, Capillary refill < 3 seconds Clubbing of nail beds is absent JVD is absent Patient's skin is warm and dry. Respiratory: No deficits noted. Reports shortness of breath Airway is patent Respiratory effort is even, unlabored, Respiratory pattern is regular, symmetrical. GI: No deficits noted. Abdomen is flat, non-distended, Reports lower abdominal pain, upper abdominal pain, cramping. : No deficits noted. No signs and/or symptoms were reported regarding the genitourinary system. Reports vaginal bleeding that is heavy flow. EENT: No deficits noted. No signs and/or symptoms were reported regarding the EENT system. Derm: Skin is intact, is healthy with good turgor, Skin is dry, Skin is pale, Skin temperature is cool. Musculoskeletal: No deficits noted. Circulation, motion, and sensation intact. Range of motion: intact in all extremities. 08:40 Reassessment: Patient is alert, oriented x 3, equal unlabored respirations, skin ko1 warm/dry/pink. First unit of prbc's initiated. 09:00 Reassessment: Patient is alert, oriented x 3, equal unlabored respirations, skin ko1 warm/dry/pink. patient is tolerating blood transfusion well, no s/s of reaction Patient denies pain at this time. 10:00 Reassessment: Patient is alert, oriented x 3, equal unlabored respirations, skin ko1 warm/dry/pink. 2nd unit of prbcs initiated Patient denies pain at this time. 10:20 Reassessment: Patient appears in no apparent distress at this time. Patient and/or ko1 family updated on plan of care and expected duration. Pain level reassessed. No s/s of reaction, blood continues to infuse. 11:00 Reassessment: Patient appears in no apparent distress at this time. Patient and/or ko1 family updated on plan of care and expected duration. Pain level reassessed. Patient is alert, oriented x 3, equal unlabored respirations, skin warm/dry/pink. 3rd unit prbcs initiated. Vital Signs: 05:41 BP 143 / 88; Pulse 76; Resp 16; Temp 97.7; Pulse Ox 99% on R/A; Weight 73.48 kg; Height pf1 5 ft. 4 in. ; Pain 8/10; 07:58 BP 141 / 92; Pulse 70; Resp 15; Pulse Ox 98% ; ko1 08:40 BP 150 / 91; Pulse 68; Resp 12; Pulse Ox 99% ; ko1 10:14 BP 140 / 81; Pulse 62; Resp 14; Temp 98.6; Pulse Ox 100% ; ko1 11:42 BP 156 / 101; Pulse 60; Resp 12; Pulse Ox 100% ; ko1 12:36 BP 148 / 98; Pulse 72; Resp 16; Pulse Ox 100% ; ko1 05:41 Body Mass Index 27.81 (73.48 kg, 162.56 cm) pf1 05:41 Pain Scale: Adult pf1 ED Course: 05:39 Patient arrived in ED. kj1 05:39 Gonzalo Lazo MD is Attending Physician. ec2 05:56 Triage completed. pf1 06:03 Kristin Hart, REJI is Primary Nurse. lg3 06:03 Patient has correct armband on for positive identification. Placed in gown. Bed in low lg3 position. Call light in reach. Side rails up X 1. Client placed on continuous cardiac and pulse oximetry monitoring. NIBP monitoring applied. gambling monitor on. Door closed. Noise minimized. Warm blanket given. Family accompanied patient. 06:03 Inserted saline lock: 20 gauge in right antecubital area, using aseptic technique. lg3 Blood collected. Patient maintains SpO2 saturation greater than 95% on room air. 06:05 Type And Screen Sent. lg3 06:05 CMP Sent. lg3 06:05 CBC with Diff Sent. lg3 06:07 CXR XRAY In Process Unspecified. EDMS 06:20 Influenza Screen (a \T\ B) Sent. lg3 06:20 SARS RAPID Sent. lg3 07:03 Attending Physician role handed off by Gonzalo Lazo MD rn 07:03 Aman Frazier MD is Attending Physician. rn 07:25 Pelvis Complete In Process Unspecified. EDMS 08:40 Provided Education on: Blood Transfusion. Consent for blood and/or blood product ko1 transfusion explained by staff, explained by physician, signed by patient. 09:23 Packed RBC Leukored Sent. jl7 10:47 Packed RBC Leukored Sent. ko1 10:47 Packed RBCs (Additional Unit) Sent. ko1 12:03 No provider procedures requiring assistance completed. ko1 12:38 IV discontinued, intact, bleeding controlled, No redness/swelling at site. Pressure ko1 dressing applied. Administered Medications: 06:20 Drug: NS 0.9% IV 1000 ml IV at 1 bolus Per protocol; 1000 mL bolus Route: IV; Rate: 1 lg3 bolus; Site: right antecubital; Medication: 12:03 VIS not applicable for this client. ko1 Outcome: 12:01 Discharge ordered by MD. rn 12:38 Discharged to home ambulatory, with family, ko1 12:38 Condition: improved 12:38 Discharge instructions given to patient, family, Instructed on discharge instructions, follow up and referral plans. Demonstrated understanding of instructions, follow-up care, 12:44 Patient left the ED. ko1 Signatures: Dispatcher [employer] EDIL Aman Frazier MD MD rn Leal, Jahala, RN RN jl7 Brittany Villela kj1 Kristin Hart RN RN lg3 Mitra Gandhi RN RN ko1 Rachel Braun RN RN pf1 Gonzalo Lazo MD MD ec2
[2023-04-16 13:08] VITALS: BP 148/98; TEMP 98.6; O2SAT 100
--- NOTE | 2023-04-16 13:11 | RAD REPORT ---
EXAM DESCRIPTION: RAD - Chest Single View - 04/16/2023 6:05 am CLINICAL HISTORY: Cough COMPARISON: None. TECHNIQUE: Chest 1 View AP FINDINGS: Trachea midline. Heart size and pulmonary vessels within normal limits. Lungs clear without evidence of consolidation, mass, or significant pulmonary edema. No significant pleural effusion or pneumothorax. Bones unremarkable. IMPRESSION: Normal chest radiograph. Electronically signed by: Rhett Bell MD 04/16/2023 06:42 AM TRANSLATOR Due to temporary technical issues with the PACS/Fluency reporting system, reports are being signed by the in house radiologists without review as a courtesy to insure prompt reporting. The interpreting radiologist is fully responsible for the content of the report.
== END ==
LOC: ER 05:36
PROC: 30233N1 Transfusion of Nonautologous Red Blood Cells into Peripheral Vein, Percutaneous Approach (ICD-10-PCS; principal; 2023-04-16)
DX: D64.9 Anemia, unspecified (principal); D25.9 Leiomyoma of uterus, unspecified; R05.9 Cough, unspecified; Z11.52 Encounter for screening for COVID-19; I10 Essential (primary) hypertension
CPT/HCPCS: 93005; 85025; 81001; 36415; 86900; 86850; 81025; 86901; 86920 ×3; 80053; 87804 ×2; 71045; 76856; 99285; 87811; 36430; P9016 ×3; J7050; J7030

== ENCOUNTER → 2023-05-11 | Emergency (ER) | payer BC ==
[~2023-05-11] MED LIST changes: -NA CHLORIDE 0.9% 1,000 ML ONE; -NA CHLORIDE 0.9% 250 ML ONE; +ONDANSETRON 4 MG/2 ML VIAL ONE
--- NOTE | 2023-05-11 07:49 | RAD REPORT ---
EXAM DESCRIPTION: RADChest Single View05/11/2023 7:06 am CLINICAL HISTORY: syncope COMPARISON: Chest Single View dated 04/16/2023; Chest Single View dated 07/22/2022; Chest Single View da cliff 12/04/2020; Chest Single View dated 10/08/2019 TECHNIQUE: Portable AP view of the chest. FINDINGS: The lungs are clear. No pneumothorax or effusion. The cardiomediastinal contours are unre markable. IMPRESSION: No acute cardiopulmonary process.
[2023-05-11 08:18] LABS: Hematocrit 29.3 % (36.0-45.0); Lymphocytes % 10.2 % (15.3-44.8); MPV 7.9 fL (7.6-11.3); Platelets 371 thou/uL (152-406)
[2023-05-11 08:22] LABS: Potassium 3.3 mEq/L (3.5-5.1); Troponin High Sensitivity 7.2 pg/mL (<58.9)
[2023-05-11 09:38] LABS: Anisocytosis SLIGHT; Blood Morphology Comment NOTED (NOT SEEN); Platelet Estimate ADEQ
--- NOTE | 2023-05-11 12:06 | EDPHYS ---
Physician Documentation [facility] Name: Joyce Mera Age: 37 yrs Sex: Female : 1985 Arrival Date: 05/11/2023 Time: 06:36 Bed 8 Private MD: ED Physician Bayron Siddiqi HPI: 05/11 07:57 This 37 yrs old Female presents to ER via Wheelchair with complaints of Anemia, Syncope.ms3 07:57 37-year-old female with past medical history of anemia, anxiety, chronic neck/nerve ms3 pain, hypertension presents to the emergency department for lightheadedness, weakness. Patient states she started her cycle yesterday and is having heavy bleeding typical of her periods. Patient states she does have fibroids. Patient endorses abdominal cramping that began yesterday. Historical: - Allergies: 06:46 No Known Allergies; jb4 - PMHx: 06:46 Anemia; Anxiety; blood transfusion; chronic neck/nerve pain; Hypertension; jb4 - PSHx: 06:46 section; jb4 - Immunization history:: Adult Immunizations up to date. - Social history:: Smoking status: Patient denies any tobacco usage or history of. ROS: 07:57 Constitutional: Negative for fever, and chills. Neck: Negative for injury, pain, and ms3 swelling, Cardiovascular: Negative for chest pain, and palpitations. Respiratory: Negative for shortness of breath, cough, wheezing, and pleuritic chest pain, Abdomen/GI: Negative for abdominal pain, nausea, vomiting, diarrhea, and constipation, MS/Extremity: Negative for injury and deformity, Skin: Negative for injury, rash, and discoloration, 07:57 Neuro: Positive for Lightheaded, 07:57 All other systems are negative, Exam: 07:57 Constitutional: This is a well developed, well nourished patient who is awake, alert, ms3 and in no acute distress. Head/Face: Normocephalic, atraumatic. Neck: Trachea midline, no cervical lymphadenopathy. Supple, full range of motion without nuchal rigidity, or vertebral point tenderness. No Meningismus. Chest/axilla: Normal chest wall appearance and motion. Nontender with no deformity. Cardiovascular: Regular rate and rhythm with a normal S1 and S2. No gallops, murmurs, or rubs. Normal PMI, no JVD. No pulse deficits. Respiratory: Lungs have equal breath sounds bilaterally, clear to auscultation and percussion. No rales, rhonchi or wheezes noted. No increased work of breathing, no retractions or nasal flaring. Skin: Warm, dry with normal turgor. Normal color with no rashes, no lesions, and no evidence of cellulitis. MS/ Extremity: Pulses equal, no cyanosis. Neurovascular intact. Full, normal range of motion. 09:49 Abdomen/GI: Inspection: abdomen appears normal, Bowel sounds: normal, Palpation: ms3 moderate abdominal tenderness, in the suprapubic area, right lower quadrant and left lower quadrant, Vital Signs: 06:44 BP 135 / 86; Pulse 72; Resp 12; Pulse Ox 100% on R/A; jb4 07:56 BP 151 / 78; Pulse 93; Resp 18; Pulse Ox 99% on R/A; ld1 09:14 BP 148 / 87; Pulse 81; Resp 18; Pulse Ox 99% on R/A; ld1 11:00 BP 146 / 79; Pulse 84; Resp 18; Pulse Ox 100% on R/A; ld1 12:01 BP 141 / 82; Pulse 86; Resp 18; Pulse Ox 100% on R/A; ld1 MDM: 07:22 Patient medically screened. ms3 07:57 Differential Diagnosis Anemia versus arrhythmia versus electrolyte abnormality. ms3 12:05 Data reviewed: vital signs, nurses notes, lab test result(s), and as a result, I will ms3 discharge patient. I considered the following discharge prescriptions or medication management in the emergency department Medications were administered in the Emergency Department. See MAR. Care significantly affected by the following chronic conditions: anemia. Counseling: I had a detailed discussion with the patient and/or guardian regarding the historical points, exam findings, and any diagnostic results supporting the discharge/admit diagnosis, lab results, the need for outpatient follow up, to return to the emergency department if symptoms worsen or persist or if there are any questions or concerns that arise at home. Special discussion: I discussed with the patient/guardian in detail that at this point there is no indication for admission to the hospital. It is understood, however, that if the symptoms persist or worsen the patient needs to return immediately for re-evaluation. ED course: Labs discussed with patient. Patient does not wish to wait for urinalysis and urine test to return. Patient to follow-up with Dr. Bella in 2 to 3 days. Patient understands and agrees with plan. All questions were answered. Return precautions discussed include worsening symptoms, or any other concerns. On reevaluation patient is alert and oriented x 4, no apparent distress, nontoxic-appearing, speaking full sentences. 05/11 06:47 Order name: Basic Metabolic Panel; Complete Time: 09:11 [facility] 05/11 06:47 Order name: CBC with Diff; Complete Time: 10: [facility] 05/11 06:47 Order name: Troponin HS; Complete Time: 09: [facility] 05/11 06:49 Order name: ABO/RH typing; Complete Time: : [facility] 05/11 06:49 Order name: Antibody Screen; Complete Time: : [facility] 05/11 09:31 Order name: Antibody Identification; Complete Time: : [facility] 05/11 09:38 Order name: Manual Differential; Complete Time: : [facility] 05/11 06:47 Order name: XRAY Chest (1 view); Complete Time: 07:56 [facility] 05/11 06:47 Order name: Cardiac monitoring; Complete Time: 07:08 [facility] 05/11 06:47 Order name: IV Saline Lock; Complete Time: 08:09 [facility] 05/11 06:47 Order name: Labs collected and sent; Complete Time: 08:09 [facility] 05/11 06:47 Order name: O2 Per Protocol; Complete Time: 07:08 [facility] 05/11 06:47 Order name: O2 Sat Monitoring; Complete Time: 07:08 [facility] Administered Medications: 09:50 Drug: Ondansetron IVP 4 mg IVP once; over 2 minutes Route: IVP; Site: left antecubital; rs5 Disposition Summary: 05/11/23 12:05 Discharge Ordered Notes: Location: Home ms3 Condition: Stable ms3 Diagnosis - Anemia, unspecified ms3 - Dysmenorrhea, unspecified ms3 - Other specified abnormal uterine and vaginal bleeding ms3 Followup: ms3 - With: Danika Tan MD - When: 1 - 2 days - Reason: Recheck today's complaints Discharge Instructions: - Discharge Summary Sheet ms3 - Anemia ms3 - Dysmenorrhea ms3 - Menorrhagia ms3 Forms: - Medication Reconciliation Form ms3 - Thank You Letter ms3 - Antibiotic Education ms3 - Prescription Opioid Use ms3 - Patient Portal Instructions ms3 - Leadership Thank You Letter ms3 Signatures: Dispatcher [employer] EDNE Zack Armendariz MD MD [facility] Ermias Adames RN RN jb4 Neeru Bayron, DO ms3 Phill Myles, RN RN rs5 Corrections: (The following items were deleted from the chart) 08:12 06:47 TYPE AND SCREEN+BB.LAB.BRZ ordered. EDMS EDMS 09:27 06:47 PACKED RBC LEUKORED+BB.LAB.BRZ ordered. EDNE EDMS 09:49 07:57 Constitutional: This is a well developed, well nourished patient who is awake, ms3 alert, and in no acute distress. Head/Face: Normocephalic, atraumatic. Neck: Trachea midline, no cervical lymphadenopathy. Supple, full range of motion without nuchal rigidity, or vertebral point tenderness. No Meningismus. Chest/axilla: Normal chest wall appearance and motion. Nontender with no deformity. Cardiovascular: Regular rate and rhythm with a normal S1 and S2. No gallops, murmurs, or rubs. Normal PMI, no JVD. No pulse deficits. Respiratory: Lungs have equal breath sounds bilaterally, clear to auscultation and percussion. No rales, rhonchi or wheezes noted. No increased work of breathing, no retractions or nasal flaring. Abdomen/GI: Soft, non-tender, with normal bowel sounds. No distension or tympany. No guarding or rebound. No evidence of tenderness throughout. Skin: Warm, dry with normal turgor. Normal color with no rashes, no lesions, and no evidence of cellulitis. MS/ Extremity: Pulses equal, no cyanosis. Neurovascular intact. Full, normal range of motion. ms3
--- NOTE | 2023-05-11 12:06 | ER ---
Nurse's Notes [facility] Name: Joyce Mera Age: 37 yrs Sex: Female : 1985 Arrival Date: 05/11/2023 Time: 06:36 Bed 8 Private MD: Diagnosis: Anemia, unspecified;Dysmenorrhea, unspecified;Other specified abnormal uterine and vaginal bleeding Presentation: 05/11 06:44 Chief complaint: Patient states: I am anemic and need a blood transfusion. I passed out jb4 in the lobby and fell out of the chair. Friend and/or Co-Worker states: When she fell she caught herself on her hands and knees. She did not hit her head. Coronavirus screen: At this time, the client does not indicate any symptoms associated with coronavirus-19. Ebola Screen: No symptoms or risks identified at this time. Initial Sepsis Screen: Does the patient meet any 2 criteria? No. Patient's initial sepsis screen is negative. Does the patient have a suspected source of infection? No. Patient's initial sepsis screen is negative. Risk Assessment: Do you want to hurt yourself or someone else? Patient reports no desire to harm self or others. Onset of symptoms was May 11, 2023. Transition of care: patient was not received from another setting of care. 06:44 Method Of Arrival: Wheelchair jb4 06:44 Acuity: ALICIA 2 jb4 Historical: - Allergies: 06:46 No Known Allergies; jb4 - PMHx: 06:46 Anemia; Anxiety; blood transfusion; chronic neck/nerve pain; Hypertension; jb4 - PSHx: 06:46 section; jb4 - Immunization history:: Adult Immunizations up to date. - Social history:: Smoking status: Patient denies any tobacco usage or history of. Screenin:56 [facility] ED Fall Risk Assessment (Adult) History of falling in the last 3 months, ld1 including since admission No falls in past 3 months (0 pts). Abuse screen: Denies threats or abuse. Denies injuries from another. Nutritional screening: No deficits noted. Tuberculosis screening: No symptoms or risk factors identified. Assessment: 07:56 General: Appears in no apparent distress. comfortable, Behavior is calm, cooperative, ld1 appropriate for age. Pain: Denies pain. Neuro: Level of Consciousness is awake, alert, obeys commands, Oriented to person, place, time, situation. Cardiovascular: Capillary refill < 3 seconds Patient's skin is warm and dry. Rhythm is sinus rhythm. Respiratory: Airway is patent Respiratory effort is even, unlabored. GI: Abdomen is round non-distended. : No signs and/or symptoms were reported regarding the genitourinary system. EENT: No signs and/or symptoms were reported regarding the EENT system. Derm: No signs and/or symptoms reported regarding the dermatologic system. Musculoskeletal: No signs and/or symptoms reported regarding the musculoskeletal system. 09:15 Reassessment: Patient appears in no apparent distress at this time. No changes from ld1 previously documented assessment. Patient and/or family updated on plan of care and expected duration. Pain level reassessed. 11:00 Reassessment: No changes from previously documented assessment. Patient and/or family ld1 updated on plan of care and expected duration. Pain level reassessed. Patient is alert, oriented x 3, equal unlabored respirations, skin warm/dry/pink. 12:00 Reassessment: Patient appears in no apparent distress at this time. No changes from ld1 previously documented assessment. Patient and/or family updated on plan of care and expected duration. Pain level reassessed. Patient is alert, oriented x 3, equal unlabored respirations, skin warm/dry/pink. Pt requesting to leave. Notified ERP. Vital Signs: 06:44 BP 135 / 86; Pulse 72; Resp 12; Pulse Ox 100% on R/A; jb4 07:56 BP 151 / 78; Pulse 93; Resp 18; Pulse Ox 99% on R/A; ld1 09:14 BP 148 / 87; Pulse 81; Resp 18; Pulse Ox 99% on R/A; ld1 11:00 BP 146 / 79; Pulse 84; Resp 18; Pulse Ox 100% on R/A; ld1 12:01 BP 141 / 82; Pulse 86; Resp 18; Pulse Ox 100% on R/A; ld1 ED Course: 06:37 Patient arrived in ED. eb 06:43 Zack Armendariz MD is Attending Physician. kdr 06:46 Triage completed. jb4 06:46 Arm band placed on. jb4 06:46 Initial lab(s) drawn, by me, sent to lab. Inserted saline lock: 18 gauge in right jb4 antecubital area, using aseptic technique. Blood collected. 07:08 XRAY Chest (1 view) In Process Unspecified. EDMS 07:09 Attending Physician role handed off by Zack Armendariz MD ms3 07:09 Bayron Siddiqi DO is Attending Physician. ms3 07:56 Patient has correct armband on for positive identification. Placed in gown. Bed in low ld1 position. Call light in reach. Side rails up X2. monitoring analyst on. Pulse ox on. NIBP on. Door closed. Noise minimized. Warm blanket given. 07:56 No provider procedures requiring assistance completed. ld1 07:57 Anais Siddiqi, RN is Primary Nurse. ld1 12:05 Danika Tan MD is Referral Physician. ms3 12:11 IV discontinued, intact, bleeding controlled, No redness/swelling at site. ld1 Administered Medications: 09:50 Drug: Ondansetron IVP 4 mg IVP once; over 2 minutes Route: IVP; Site: left antecubital; rs5 Medication: 07:56 VIS not applicable for this client. ld1 Outcome: 12:05 Discharge ordered by . ms3 12:11 Discharged to home ambulatory, ld1 12:11 Condition: stable 12:11 Discharge instructions given to patient, Instructed on discharge instructions, follow up and referral plans. Demonstrated understanding of instructions, follow-up care, 12:12 Patient left the ED. ld1 Signatures: Dispatcher [employer] EDMS Zack Armendariz MD MD kdr Bryson, James RN RN jb4 Erin Sheldon Bayron Siddiqi DO DO ms3 Anais Siddiqi, RN RN ld1 Phill Myles RN RN rs5
[2023-05-11 12:45] VITALS: O2SAT 100
[2023-05-11 12:58] VITALS: BP 141/82
== END ==
LOC: ER 06:36
DX: D64.9 Anemia, unspecified (principal); N93.9 Abnormal uterine and vaginal bleeding, unspecified; I10 Essential (primary) hypertension
CPT/HCPCS: 85025; 80048; 36415; 86900; 86850; 86870; 86901; 84484; 71045; J2405

== ENCOUNTER → 2023-07-07 | Emergency (ER) | payer BC ==
[~2023-07-07] MED LIST changes: +HYDROCODONE/APAP 5/325 MG TAB ONE; +NA CHLORIDE 0.9% 100 ML ONE; +ONDANSETRON 4 MG (ODT) TAB ONE; -ONDANSETRON 4 MG/2 ML VIAL ONE
[2023-07-07 23:11] LABS: Absolute Eosinophils 0.1 K/uL (0-0.5); Absolute Monocytes 0.3 K/uL (0.1-1.3); Basophils % 0.8 % (0-1.3); Eosinophils % 2.5 % (0-4.4); Hematocrit 18.2 % (36.0-45.0); Lymphocytes % 29.3 % (15.3-44.8); MCH 20.3 pg (27.0-35.0); MPV 8.3 fL (7.6-11.3); Monocytes % 8.4 % (3.3-12.3); Nucleated Red Blood Cells % 0.2 % (0-0); Platelets 253 thou/uL (152-406); RBC Red Blood Cell Count 2.61 M/uL (3.86-4.86); Red Cell Distribution Width 18.7 % (12.1-15.2)
[2023-07-07 23:14] LABS: Hemoglobin 5.3 g/dL (12.0-15.0)
[2023-07-07 23:22] LABS: Albumin 3.7 g/dL (3.4-5.0); Albumin/Globulin Ratio 1.1 (1.1-1.8); Anion Gap 6.8 mEq/L (5.0-15.0); Bilirubin Total 0.4 mg/dL (0.2-1.0); Globulin 3.3 g/dL (2.3-3.5); Potassium 3.8 mEq/L (3.5-5.1)
[2023-07-08 01:23] LABS: Blood Morphology Comment NOTED (NOT SEEN); Hypochromasia 1+; Microcytosis 1+; Platelet Estimate ADEQ; Polychromasia SLIGHT; White Blood Cell Scan OK (OK)
--- NOTE | 2023-07-08 07:16 | ER ---
Nurse's Notes [facility] Name: Joyce Mera Age: 37 yrs Sex: Female : 1985 Arrival Date: 07/07/2023 Time: 22:04 Bed External Waiting [facility] MD: Guy Vizcarra Diagnosis: Secondary dysmenorrhea;Anemia, unspecified;Leiomyoma of uterus, unspecified Presentation: 07/06 22:16 Chief complaint: Patient states: fatigue, back of neck pain, nauseated, and dizziness km8 for 3 days. Coronavirus screen: Client denies travel out of the [place] in the last 14 days. Ebola Screen: No symptoms or risks identified at this time. Initial Sepsis Screen: Does the patient meet any 2 criteria? No. Patient's initial sepsis screen is negative. Does the patient have a suspected source of infection? No. Patient's initial sepsis screen is negative. Risk Assessment: Do you want to hurt yourself or someone else? Patient reports no desire to harm self or others. Onset of symptoms was July 04, 2023. 22:16 Method Of Arrival: Ambulatory km8 22:16 Acuity: AILCIA 3 km8 Triage Assessment: 22:17 General: Appears in no apparent distress. uncomfortable, Behavior is cooperative, km8 appropriate for age. Pain: Complains of pain in base of the skull Pain currently is 7 out of 10 on a pain scale. Quality of pain is described as sharp. EENT: No signs and/or symptoms were reported regarding the EENT system. Neuro: Level of Consciousness is awake, alert, obeys commands, Oriented to person, place, time, situation. Cardiovascular: Denies chest pain, shortness of breath, Patient's skin is warm and dry. Respiratory: Airway is patent Respiratory effort is even, unlabored, Respiratory pattern is regular, symmetrical. GI: No signs and/or symptoms were reported involving the gastrointestinal system. : No signs and/or symptoms were reported regarding the genitourinary system. Derm: Skin is intact, is healthy with good turgor, Skin is dry, Skin is pale, Skin temperature is warm. Musculoskeletal: No signs and/or symptoms reported regarding the musculoskeletal system. Range of motion: intact in all extremities. [employer]: 22:17 LMP 06/29/2023, unknown km8 Historical: - Allergies: 22:17 No Known Allergies; km8 - Home Meds: 22:17 amlodipine oral once for Hypertension [Active]; gabapentin 300 mg Oral capsule 3 times km8 per day for Neuropathic Pain [Active]; Lexapro Oral [Active]; - PMHx: 22:17 Anemia; Anxiety; blood transfusion; chronic neck/nerve pain; Hypertension; km8 - PSHx: 22:17 section; km8 - Immunization history:: Client reports having NOT received the Covid vaccine. Flu vaccine is not up to date. - Social history:: Smoking status: Reported history of juuling and/or vaping. Patient/guardian denies using alcohol, street drugs. - Family history:: not pertinent. Screenin:20 [facility] Fall Risk Assessment (Adult) History of falling in the last 3 months, jb4 including since admission No falls in past 3 months (0 pts) Confusion or Disorientation No (0 pts) Intoxicated or Sedated No (0 pts) Impaired Gait No (0 pts) Mobility Assist Device Used No (0 pt) Altered Elimination No (0 pt) Score/Fall Risk Level 0 - 2 = Low Risk Oriented to surroundings, Maintained a safe environment. 23:35 Abuse screen: Denies threats or abuse. Nutritional screening: No deficits noted. jb4 Tuberculosis screening: No symptoms or risk factors identified. Assessment: 22:20 General: Appears in no apparent distress. comfortable, Behavior is calm, cooperative, jb4 appropriate for age. Pain: Complains of pain in headache, neck Pain does not radiate. Pain currently is 7 out of 10 on a pain scale. Neuro: Level of Consciousness is awake, alert, obeys commands, Oriented to person, place, time, situation. Cardiovascular: Patient's skin is warm and dry. Respiratory: Airway is patent Respiratory effort is even, unlabored, Respiratory pattern is regular, symmetrical. GI: No signs and/or symptoms were reported involving the gastrointestinal system. : No signs and/or symptoms were reported regarding the genitourinary system. EENT: No signs and/or symptoms were reported regarding the EENT system. Derm: Skin is intact, Skin is dry, Skin is pale, Skin temperature is warm. Musculoskeletal: Circulation, motion, and sensation intact. Range of motion: intact in all extremities. 23:33 Reassessment: Patient appears in no apparent distress at this time. Patient and/or jb4 family updated on plan of care and expected duration. Pain level reassessed. Patient is alert, oriented x 3, equal unlabored respirations, skin warm/dry/pink. 07/07 00:29 Reassessment: Patient and/or family updated on plan of care and expected duration. Pain tm6 level reassessed. Patient is alert, oriented x 3, equal unlabored respirations, skin warm/dry/pink. 01:39 Reassessment: Patient appears in no apparent distress at this time. Patient and/or jb4 family updated on plan of care and expected duration. Pain level reassessed. Patient is alert, oriented x 3, equal unlabored respirations, skin warm/dry/pink. 02:36 Reassessment: Patient appears in no apparent distress at this time. pt sleeping at this km8 time. 03:55 Reassessment: Patient appears in no apparent distress at this time. No changes from km8 previously documented assessment. 06:30 Reassessment: Patient appears in no apparent distress at this time. km8 07:30 Reassessment: discharge pending blood transfusion, blood being prepared by blood bank, iw Dr. Mera aware. 08:47 Reassessment: called blood bank, blood should be ready in approx 30-45 minutes. iw 10:18 Reassessment: pt not in room, called phone numbers on file, left VM, registration iw reports they were able to speak to daughter and she stated that pt was at home, when daughter was told that pt needs to come back to ER or the police will be sent to the house to remove IV daughter states that pt is not actually at home. 10:20 Reassessment: attempt to call daughter , no answer, left voice mail. Leatha from lab iw states blood will be held for 3 days if pt returns to ER blood will be readily available for pt. 10:42 Reassessment: PD notified by Erin ESPARZA tech, will attempt to estate planning counselor pt on need to iw return to ER for transfusion. Vital Signs: 07/06 22:16 BP 140 / 79; Pulse 72; Resp 16; Temp 98.1(TE); Pulse Ox 97% on R/A; Weight 77.11 kg km8 (R); Height 5 ft. 4 in. (R); Pain 7/10; 23:35 BP 131 / 84; Pulse 75; Resp 16; Pulse Ox 100% on R/A; jb4 07/07 00:28 BP 128 / 79; Pulse 70; Pulse Ox 100% on R/A; tm6 01:30 BP 158 / 109; Pulse 70; Resp 16; Pulse Ox 100% on R/A; jb4 02:36 BP 143 / 87; Pulse 57; Resp 16; Pulse Ox 98% on R/A; km8 03:00 BP 130 / 80; Pulse 61; Resp 16; Pulse Ox 98% on R/A; km8 03:30 BP 111 / 64; Pulse 65; Resp 16; Pulse Ox 97% on R/A; km8 04:00 BP 166 / 8; Pulse 70; Resp 16; Pulse Ox 97% on R/A; km8 05:00 BP 114 / 75; Pulse 63; Resp 16; Pulse Ox 95% on R/A; km8 06:00 BP 127 / 71; Pulse 56; Resp 16; Pulse Ox 97% on R/A; km8 07/06 22:16 Body Mass Index 29.18 (77.11 kg, 162.56 cm) [facility] 07/06 22:16 Pain Scale: Adult [facility] ED Course: 07/06 22:10 Patient arrived in ED. mr 22:11 Guy Vizcarra DO is Private Physician. mr 22:17 Peterson Lambert MD is Attending Physician. rt 22:17 Triage completed. km8 22:17 Arm band placed on right wrist. km8 22:45 Initial lab(s) drawn, by ok, sent to lab. Inserted saline lock: 20 gauge in right jb4 antecubital area, using aseptic technique. Blood collected. 22:57 XRAY C Spine Ap/lat In Process Unspecified. EDMS 23:14 Notified ED physician of a critical lab result(s). Hgb 5.3. kl 23:33 Ermias Adames, RN is Primary Nurse. jb4 23:35 Patient has correct armband on for positive identification. Bed in low position. Call jb4 light in reach. Side rails up X 1. Provided Education on: plan of care. 07/07 07:10 Attending Physician role handed off by Peterson Lambert MD anselmo 07:10 Shreyas Mera MD is Attending Physician. anselmo 07:14 Guy Vizcarra DO is Referral Physician. [facility] 07:29 Report given to REJI Conde. 8 10:47 called and spoke with patient/ she's at work currently she will come back after her eb shift to get her transfusion/ she says she's very upset with the previous shift/ "nobody every came to give me my results or tell me why i was still waiting, i asked the nurse three times and they just kept saying they would send someone in to talk to me and nobody ever came" /. Administered Medications: 07/06 23:02 Drug: HYDROcodone-acetaminophen PO 5 mg-325 mg 1 tabs PO once Route: PO; jb4 07/07 02:00 Follow up: Response: No adverse reaction; Pain is decreased km8 07/06 23:02 Drug: Ondansetron Oral Disintegrating Tablet Oral Disintegrating Tablet 4 mg PO once jb4 Route: PO; 07/07 02:00 Follow up: Response: No adverse reaction 8 Medication: 07/06 22:20 VIS not applicable for this client. jb4 Outcome: 07/07 07:16 Discharge ordered by . [facility] 10:48 Patient left the ED. iw Signatures: Dispatcher [employer] EDMS Irene Hercules RN RN kl Anderson, Corey, MD MD cha Rivera, Mary, Reg Reg mr Amaya Hines RN REJI Ermias Adames RN RN [facility] Erin Sheldon Ryan, MD MD rt Rachel Dunham RN RN km8 Vanessa Murrieta RN RN tm6 Corrections: (The following items were deleted from the chart) 07/06 23:35 22:20 BP 131 / 84; Pulse 75bpm; Resp 16bpm; Pulse Ox 100% RA; jb4 jb4 23:35 22:20 [facility] ED Fall Risk Assessment (Adult) History of falling in the last 3 months, jb4 including since admission No falls in past 3 months (0 pts) jb4
--- NOTE | 2023-07-08 07:17 | EDPHYS ---
Physician Documentation [facility] Name: Joyce Mera Age: 37 yrs Sex: Female : 1985 Arrival Date: 07/07/2023 Time: 22:04 Bed External Waiting Private MD: Zackery [facility] ED Physician Shreyas Mera HPI: 07/07 01:29 This 37 yrs old Female presents to ER via Ambulatory with complaints of Fatigue,neck rt pain, Anemia. 01:29 Patient presents to the ED with fatigue, consider prior episodes of symptomatic anemia. rt Patient states that she has menorrhagia, known fibroid, please currently working on getting an outpatient hysterectomy. States that her menstrual period has stopped, no active bleeding reports pain to the back of her neck, this is chronic in nature as well. Denies other acute complaints, symptoms are moderate in severity, no other aggravating alleviating factors.. [employer]: 07/06 22:17 LMP 06/29/2023, unknown km8 Historical: - Allergies: 22:17 No Known Allergies; km8 - Home Meds: 22:17 amlodipine oral once for Hypertension [Active]; gabapentin 300 mg Oral capsule 3 times km8 per day for Neuropathic Pain [Active]; Lexapro Oral [Active]; - PMHx: 22:17 Anemia; Anxiety; blood transfusion; chronic neck/nerve pain; Hypertension; km8 - PSHx: 22:17 section; km8 - Immunization history:: Client reports having NOT received the Covid vaccine. Flu vaccine is not up to date. - Social history:: Smoking status: Reported history of juuling and/or vaping. Patient/guardian denies using alcohol, street drugs. - Family history:: not pertinent. ROS: 07/07 01:29 Respiratory: Negative for shortness of breath, cough, wheezing, and pleuritic chest rt pain, Abdomen/GI: Negative for abdominal pain, nausea, vomiting, diarrhea, and constipation, Skin: Negative for injury, rash, and discoloration, Psych: Negative for depression, anxiety, suicide ideation, homicidal ideation, and hallucinations, Constitutional: Positive for fatigue, Negative for fever, Neck: Positive for pain with movement, pain at rest, Exam: :29 Constitutional: This is a well developed, well nourished patient who is awake, alert, rt and in no acute distress. Head/Face: Normocephalic, atraumatic. Chest/axilla: Normal chest wall appearance and motion. Nontender with no deformity. No lesions are appreciated. Cardiovascular: Regular rate and rhythm with a normal S1 and S2. No gallops, murmurs, or rubs. Normal PMI, no JVD. No pulse deficits. Respiratory: Lungs have equal breath sounds bilaterally, clear to auscultation and percussion. No rales, rhonchi or wheezes noted. No increased work of breathing, no retractions or nasal flaring. Abdomen/GI: Soft, non-tender, with normal bowel sounds. No distension or tympany. No guarding or rebound. No evidence of tenderness throughout. Skin: Warm, dry with normal turgor. Normal color with no rashes, no lesions, and no evidence of cellulitis. MS/ Extremity: Pulses equal, no cyanosis. Neurovascular intact. Full, normal range of motion. 01:29 Neck: Mild tenderness diffusely throughout the neck, no step-offs, Vital Signs: 07/06 22:16 BP 140 / 79; Pulse 72; Resp 16; Temp 98.1(TE); Pulse Ox 97% on R/A; Weight 77.11 kg km8 (R); Height 5 ft. 4 in. (R); Pain 7/10; 23:35 BP 131 / 84; Pulse 75; Resp 16; Pulse Ox 100% on R/A; jb4 07/07 00:28 BP 128 / 79; Pulse 70; Pulse Ox 100% on R/A; tm6 01:30 BP 158 / 109; Pulse 70; Resp 16; Pulse Ox 100% on R/A; jb4 02:36 BP 143 / 87; Pulse 57; Resp 16; Pulse Ox 98% on R/A; km8 03:00 BP 130 / 80; Pulse 61; Resp 16; Pulse Ox 98% on R/A; km8 03:30 BP 111 / 64; Pulse 65; Resp 16; Pulse Ox 97% on R/A; km8 04:00 BP 166 / 8; Pulse 70; Resp 16; Pulse Ox 97% on R/A; km8 05:00 BP 114 / 75; Pulse 63; Resp 16; Pulse Ox 95% on R/A; km8 06:00 BP 127 / 71; Pulse 56; Resp 16; Pulse Ox 97% on R/A; km8 07/06 22:16 Body Mass Index 29.18 (77.11 kg, 162.56 cm) 8 07/06 22:16 Pain Scale: Adult km8 MDM: 07/06 22:23 Patient medically screened. rt 07/07 07:17 Differential Diagnosis Symptomatic anemia. Data reviewed: vital signs, nurses notes, rt lab test result(s), radiologic studies. I considered the following discharge prescriptions or medication management in the emergency department Medications were administered in the Emergency Department. See MAR. Independent interpretation of the following test(s) in the Emergency Department X-Ray: My interpretation is No cervical fractures and interpretation of x-ray images. Care significantly affected by the following chronic conditions: Symptomatic anemia. Counseling: I had a detailed discussion with the patient and/or guardian regarding the historical points, exam findings, and any diagnostic results supporting the discharge/admit diagnosis, lab results, the need for outpatient follow up, to return to the emergency department if symptoms worsen or persist or if there are any questions or concerns that arise at home. 07/06 22:32 Order name: CBC with Diff; Complete Time: 03:07 rt 07/06 22:32 Order name: CMP; Complete Time: 03:07 rt 07/06 22:32 Order name: Type And Screen rt 07/06 22:32 Order name: Test, Serum; Complete Time: 03:07 rt 07/06 23:17 Order name: CBC Smear Scan; Complete Time: 03:07 EDNY 07/07 09:21 Order name: Sendout Antibody ID [facility] 07/06 22:32 Order name: XRAY C Spine Ap/lat rt 07/07 07:17 Order name: Transfuse anselmo Administered Medications: 07/06 23:02 Drug: HYDROcodone-acetaminophen PO 5 mg-325 mg 1 tabs PO once Route: PO; jb4 07/07 02:00 Follow up: Response: No adverse reaction; Pain is decreased 8 07/06 23:02 Drug: Ondansetron Oral Disintegrating Tablet Oral Disintegrating Tablet 4 mg PO once jb4 Route: PO; 07/07 02:00 Follow up: Response: No adverse reaction km8 Disposition Summary: 07/08/23 07:16 Discharge Ordered Notes: Location: Home anselmo Problem: new anselmo Symptoms: have improved anselmo Condition: Stable anselmo Diagnosis - Secondary dysmenorrhea anselmo - Anemia, unspecified anselmo - Leiomyoma of uterus, unspecified anselmo Followup: anselmo - With: Guy Vizcarra DO - When: 2 - 3 days - Reason: Recheck today's complaints, Continuance of care, Re-evaluation by your physician Discharge Instructions: - Anemia anselmo - Blood Transfusion, Adult anselmo - Iron-Rich Diet anselmo - Uterine Fibroids anselmo - Dysfunctional Uterine Bleeding anselmo - Uterine Fibroids, [id number] anselmo - Blood Transfusion, Adult, Care After, [id number] anselmo - Blood Transfusion, Adult, Care After anselmo - Discharge Summary Sheet jb4 Forms: - Medication Reconciliation Form [facility] - Thank You Letter anselmo - Antibiotic Education anselmo - Prescription Opioid Use anselmo - Patient Portal Instructions anselmo - Leadership Thank You Letter [facility] - Work release form jb4 Prescriptions: - Ferrous Sulfate 325 mg (65 mg Iron) Oral Tablet - take 1 tablet ORAL route every 8 hours; 90 tablet; Refills: 0, Product anselmo Selection Permitted Signatures: Dispatcher [employer] EDShreyas Torres MD MD cha Bryson, James, RN RN jb4 Peterson Lambert MD MD rt Rachel Dunham, REJI RN km8
[2023-07-08 11:03] VITALS: TEMP 98.1
[2023-07-08 11:34] VITALS: BP 127/71; O2SAT 97
--- NOTE | 2023-07-09 13:09 | RAD REPORT ---
EXAM DESCRIPTION: XR Cervical Spine, 2 or 3 Views CLINICAL HISTORY: The patient is 37 years old and is Female; PAIN TECHNIQUE: Frontal and lateral views of the cervical spine. COMPARISON: No relevant prior studies available. FINDINGS: VERTEBRAE: Unremarkable. No definite fracture. Normal alignment. DISC SPACES: No acute findings. No significant narrowing. SOFT TISSUES: Unremarkable. IMPRESSION: Normal cervical spine radiographs. Electronically signed by: Melissa Carr MD 07/07/2023 11:16 PM CDT Due to temporary technical issues with the PACS/Fluency reporting system, reports are being signed by the in house radiologist without review as a courtesy to ensure prompt reporting. The interpreting r adiologist is fully responsible for the content of the report.
== END ==
LOC: ER 22:04
DX: D64.9 Anemia, unspecified (principal); D25.9 Leiomyoma of uterus, unspecified; I10 Essential (primary) hypertension; Z28.310 Unvaccinated for COVID-19
CPT/HCPCS: 85025; 36415; 86900; 86850; 84703; 86902; 86870; 86901; 86920 ×2; 80053; 86922 ×2; 72040; Q0162; 99284

== ENCOUNTER → 2023-07-08 | Emergency (ER) | payer BC ==
[~2023-07-08] MED LIST changes: -HYDROCODONE/APAP 5/325 MG TAB ONE; -NA CHLORIDE 0.9% 100 ML ONE; +NA CHLORIDE 0.9% 250 ML ONE; -ONDANSETRON 4 MG (ODT) TAB ONE
[2023-07-08 17:33] LABS: Absolute Eosinophils 0.1 K/uL (0-0.5); Absolute Monocytes 0.3 K/uL (0.1-1.3); Basophils % 0.9 % (0-1.3); Eosinophils % 2.2 % (0-4.4); Hematocrit 17.8 % (36.0-45.0); Lymphocytes % 29.5 % (15.3-44.8); MCH 20.3 pg (27.0-35.0); MCHC 28.9 g/dL (32.0-36.0); MCV 70.1 fL (80-100); MPV 8.1 fL (7.6-11.3); Monocytes % 7.4 % (3.3-12.3); Nucleated Red Blood Cells % 0.1 % (0-0); Platelets 249 thou/uL (152-406); RBC Red Blood Cell Count 2.54 M/uL (3.86-4.86); Red Cell Distribution Width 18.1 % (12.1-15.2)
[2023-07-08 17:34] LABS: Hemoglobin 5.1 g/dL (12.0-15.0)
--- NOTE | 2023-07-08 17:55 | EDPHYS ---
Physician Documentation [facility] Name: Joyce Mera Age: 37 yrs Sex: Female : 1985 Arrival Date: 07/08/2023 Time: 16:56 Bed 13 Private MD: Zackery [facility]ly [facility] ED Physician Shreyas Mera HPI: 07/07 17:31 This 37 yrs old Female presents to ER via Ambulatory with complaints of Blood anselmo Transfusion. 17:31 here for blood transfusion. Onset: The symptoms/episode began/occurred 2 week(s) ago. anselmo Severity of symptoms: At their worst the symptoms were mild in the emergency department the symptoms are unchanged. The patient has experienced similar episodes in the past, multiple times. Historical: - Allergies: 17:09 No Known Allergies; nj1 - PMHx: 17:09 Anemia; Anxiety; blood transfusion; chronic neck/nerve pain; Hypertension; nj1 - PSHx: 17:09 section; nj1 - Immunization history:: Client reports having NOT received the Covid vaccine. - Social history:: Smoking status: Reported history of juuling and/or vaping. ROS: 17:32 Constitutional: Negative for fever, chills, and weight loss, Eyes: Negative for injury, anselmo pain, redness, and discharge, ENT: Negative for injury, pain, and discharge, Neck: Negative for injury, pain, and swelling, Cardiovascular: Negative for chest pain, palpitations, and edema, Respiratory: Negative for shortness of breath, cough, wheezing, and pleuritic chest pain, Abdomen/GI: Negative for abdominal pain, nausea, vomiting, diarrhea, and constipation, Back: Negative for injury and pain, : Negative for injury, bleeding, discharge, and swelling, MS/Extremity: Negative for injury and deformity, Skin: Negative for injury, rash, and discoloration, Neuro: Negative for headache, weakness, numbness, tingling, and seizure, Psych: Negative for depression, anxiety, suicide ideation, homicidal ideation, and hallucinations, Allergy/Immunology: Negative for hives, rash, and allergies, Endocrine: Negative for neck swelling, polydipsia, polyuria, polyphagia, and marked weight changes, Hematologic/Lymphatic: Negative for swollen nodes, abnormal bleeding, and unusual bruising, Exam: 17:32 Constitutional: This is a well developed, well nourished patient who is awake, alert, anselmo and in no acute distress. Head/Face: Normocephalic, atraumatic. Eyes: Pupils equal round and reactive to light, extra-ocular motions intact. Lids and lashes normal. Conjunctiva and sclera are non-icteric and not injected. Cornea within normal limits. Periorbital areas with no swelling, redness, or edema. ENT: Nares patent. No nasal discharge, no septal abnormalities noted. Tympanic membranes are normal and external auditory canals are clear. Oropharynx with no redness, swelling, or masses, exudates, or evidence of obstruction, uvula midline. Mucous membranes moist. Neck: Trachea midline, no thyromegaly or masses palpated, and no cervical lymphadenopathy. Supple, full range of motion without nuchal rigidity, or vertebral point tenderness. No Meningismus. Chest/axilla: Normal chest wall appearance and motion. Nontender with no deformity. No lesions are appreciated. Cardiovascular: Regular rate and rhythm with a normal S1 and S2. No gallops, murmurs, or rubs. Normal PMI, no JVD. No pulse deficits. Respiratory: Lungs have equal breath sounds bilaterally, clear to auscultation and percussion. No rales, rhonchi or wheezes noted. No increased work of breathing, no retractions or nasal flaring. Abdomen/GI: Soft, non-tender, with normal bowel sounds. No distension or tympany. No guarding or rebound. No evidence of tenderness throughout. Back: No spinal tenderness. No costovertebral tenderness. Full range of motion. Skin: Warm, dry with normal turgor. Normal color with no rashes, no lesions, and no evidence of cellulitis. MS/ Extremity: Pulses equal, no cyanosis. Neurovascular intact. Full, normal range of motion. Neuro: Awake and alert, GCS 15, oriented to person, place, time, and situation. Cranial nerves II-XII grossly intact. Motor strength 5/5 in all extremities. Sensory grossly intact. Cerebellar exam normal. Normal gait. Psych: Awake, alert, with orientation to person, place and time. Behavior, mood, and affect are within normal limits. 17:32 Musculoskeletal/extremity: ROM: no acute changes, intact in all extremities, Circulation is intact in all extremities. Sensation intact. Compartment Syndrome exam of affected extremity: is normal. DVT Exam: no pain, no swelling, no tenderness, negative Homans' sign noted on exam, no appreciated bluish discoloration, no erythema, no increased warmth, Vital Signs: 17:03 BP 140 / 84; Pulse 80; Resp 16; Temp 98.2(TE); Pulse Ox 100% on R/A; Weight 77.11 kg; nj1 Height 5 ft. 4 in. ; 18:00 BP 134 / 89; Pulse 80; Resp 18; Pulse Ox 100% on R/A; db 18:20 BP 133 / 93; Pulse 85; Resp 18; Temp 98.1; Pulse Ox 97% ; db 19:10 BP 158 / 91; Pulse 73; Resp 20; Temp 97.7; Pulse Ox 100% on R/A; yb 19:40 BP 135 / 89; Pulse 72; Resp 18; Temp 98.1; Pulse Ox 100% on R/A; yb 20:50 BP 174 / 97; Pulse 66; Resp 18; Temp 97.3(TE); Pulse Ox 100% ; yb 21:50 BP 147 / 87; Pulse 74; Resp 18; Temp 97.9; Pulse Ox 100% on R/A; yb 22:20 BP 148 / 94; Pulse 67; Resp 18; Temp 97.8; Pulse Ox 100% ; yb 23:26 BP 151 / 96; Pulse 79; Resp 18; Temp 98(TE); Pulse Ox 98% on R/A; yb 17:03 Body Mass Index 29.18 (77.11 kg, 162.56 cm) nj1 [place] Coma Score: 17:20 Eye Response: spontaneous(4). Motor Response: obeys commands(6). Verbal Response: db oriented(5). Total: 15. MDM: 16:59 Patient medically screened. [facility] 17:35 Data reviewed: vital signs, nurses notes, lab test result(s). Consideration of anselmo Admission/Observation Escalation of care including admission/observation considered. I considered the following discharge prescriptions or medication management in the emergency department Medications were administered in the Emergency Department. See MAR. Test considered but Not performed: X-ray: no cxr. Care significantly affected by the following chronic conditions: Hypertension, anemia, anxiety,hypertension, transfusions. 07/07 17:03 Order name: ABO/RH typing [facility] 07/07 17:03 Order name: Antibody Screen [facility] 07/07 17:01 Order name: Type And Screen [facility] 07/07 17:01 Order name: PRBC [facility] 07/07 17:01 Order name: CBC with Diff; Complete Time: 17:54 [facility] 07/07 17:01 Order name: Comprehensive Metabolic Panel [facility] 07/07 17:01 Order name: Transfuse; Complete Time: 18:46 anselmo Administered Medications: 17:20 Drug: NS 0.9% IV 1000 ml IV at 125 ml/hr continuous Route: IV; Rate: 125 ml/hr; Site: db right antecubital; 20:00 Follow up: Response: No adverse reaction; IV Intake: 1000ml yb 20:00 Follow up: Response: No adverse reaction; IV Status: Completed infusion; IV Intake: yb 1000ml Disposition Summary: 07/08/23 17:54 Discharge Ordered Notes: Location: Home anselmo Problem: new anselmo Symptoms: have improved anselmo Condition: Stable anselmo Diagnosis - Iron deficiency anemia secondary to blood loss (chronic) anselmo - Anemia, unspecified anselmo Followup: anselmo - With: Guy Vizcarra DO - When: 2 - 3 days - Reason: Recheck today's complaints, Continuance of care, Re-evaluation by your physician Followup: anselmo - With: Celia Rodrigues MD - When: 2 - 3 days - Reason: Recheck today's complaints, Re-evaluation by your physician Followup: anselmo - With: Danika Tan MD - When: 2 - 3 days - Reason: Recheck today's complaints, Re-evaluation by your physician Discharge Instructions: - Discharge Summary Sheet anselmo - Iron Deficiency Anemia, Adult anselmo - Anemia anselmo - Blood Transfusion, Adult anselmo - Blood Transfusion, Adult, [id number] anselmo - Iron Deficiency Anemia, Adult, Pdby-pj-Iteh anselmo - Blood Transfusion, Adult, Care After, Zmvn-er-[id number] anselmo - Blood Transfusion, Adult, Care After [facility] Forms: - Medication Reconciliation Form [facility] - Thank You Letter [facility] - Antibiotic Education anselmo - Prescription Opioid Use anselmo - Patient Portal Instructions anselmo - Leadership Thank You Letter anselmo - Work release form yb Prescriptions: - Ferrous Sulfate 325 mg (65 mg Iron) Oral Tablet - take 1 tablet ORAL route every 8 hours; 90 tablet; Refills: 0, Product anselmo Selection Permitted Signatures: Dispatcher [employer] EDMS Shreyas Mera MD MD cha Benton, Danielle, RN RN db Indigo Mathews RN RN nj1 Gemma Baeza RN yb
--- NOTE | 2023-07-08 17:55 | ER ---
Nurse's Notes [facility] Name: Joyce Mera Age: 37 yrs Sex: Female : 1985 Arrival Date: 07/08/2023 Time: 16:56 Bed 13 Private MD: Guy Vizcarra Diagnosis: Iron deficiency anemia secondary to blood loss (chronic);Anemia, unspecified Presentation: 07/07 17:03 Chief complaint: Patient states: Here for a blood transfusion. [facility] 17:03 Coronavirus screen: Vaccine status: Patient reports being unvaccinated. Ebola Screen: nj1 Patient denies travel to an Ebola-affected area in the 21 days before illness onset. Initial Sepsis Screen: Does the patient meet any 2 criteria? No. Patient's initial sepsis screen is negative. Does the patient have a suspected source of infection? No. Patient's initial sepsis screen is negative. Risk Assessment: Do you want to hurt yourself or someone else? Patient reports no desire to harm self or others. Onset of symptoms was June 2023. 17:03 Method Of Arrival: Ambulatory [facility] 17:03 Acuity: ALICIA 3 nj Historical: - Allergies: 17:09 No Known Allergies; nj1 - PMHx: 17:09 Anemia; Anxiety; blood transfusion; chronic neck/nerve pain; Hypertension; nj1 - PSHx: 17:09 section; nj1 - Immunization history:: Client reports having NOT received the Covid vaccine. - Social history:: Smoking status: Reported history of juuling and/or vaping. Screenin:20 [facility] ED Fall Risk Assessment (Adult) History of falling in the last 3 months, db including since admission No falls in past 3 months (0 pts) Confusion or Disorientation No (0 pts) Intoxicated or Sedated No (0 pts) Impaired Gait No (0 pts) Mobility Assist Device Used No (0 pt) Altered Elimination No (0 pt) Score/Fall Risk Level 0 - 2 = Low Risk Oriented to surroundings, Maintained a safe environment. Abuse screen: Denies threats or abuse. Denies injuries from another. Nutritional screening: No deficits noted. Tuberculosis screening: No symptoms or risk factors identified. Assessment: 17:20 Reassessment: Patient appears in no apparent distress at this time. Patient and/or db family updated on plan of care and expected duration. Pain level reassessed. Patient is alert, oriented x 3, equal unlabored respirations, skin warm/dry/pink. General: Appears in no apparent distress. comfortable, Behavior is calm, cooperative. Pain: Denies pain. Neuro: Level of Consciousness is awake, alert, obeys commands, Oriented to person, place, time, situation. Cardiovascular: No deficits noted. Respiratory: No deficits noted. Airway is patent Respiratory effort is even, unlabored, Respiratory pattern is regular, symmetrical. 18:00 Reassessment: PATIENT AMBULATORY TO RESTROOM. db 18:15 Reassessment: REQUEST FOR BLOOD SENT TO BLOOD BANK AND SIGNED. db 18:40 Reassessment: SEE BLOOD ADMIN FLOW SHEET. db 18:46 Reassessment: Patient appears in no apparent distress at this time. Patient and/or db family updated on plan of care and expected duration. Pain level reassessed. Patient is alert, oriented x 3, equal unlabored respirations, skin warm/dry/pink. 19:05 General: Appears comfortable, Behavior is calm, cooperative. Pain: Denies pain. Neuro: ha1 Level of Consciousness is awake, alert, obeys commands, Oriented to person, place, time, situation. Cardiovascular: Patient's skin is warm and dry. Respiratory: Airway is patent Respiratory effort is even, unlabored, Respiratory pattern is regular, symmetrical. GI: RECEIVING BLOOD TRANSFUSION. 19:10 Reassessment: DISCHARGE PENDING DUE TO BLOOD TRANSFUSION. ha1 20:20 Reassessment: Patient and/or family updated on plan of care and expected duration. Pain ha1 level reassessed. Patient is alert, oriented x 3, equal unlabored respirations, skin warm/dry/pink. FIRST UNIT OF BLOOD COMPLETED. NO ADVERSE REACTIONS. 21:20 Reassessment: Patient and/or family updated on plan of care and expected duration. Pain ha1 level reassessed. Patient is alert, oriented x 3, equal unlabored respirations, skin warm/dry/pink. 22:20 Reassessment: Patient and/or family updated on plan of care and expected duration. Pain yb level reassessed. Patient is alert, oriented x 3, equal unlabored respirations, skin warm/dry/pink. 23:00 Reassessment: Patient and/or family updated on plan of care and expected duration. Pain yb level reassessed. Patient is alert, oriented x 3, equal unlabored respirations, skin warm/dry/pink. 23:26 Reassessment: Completed second unit of blood, no adverse reactions noted. Vitals within yb range. Vital Signs: 17:03 BP 140 / 84; Pulse 80; Resp 16; Temp 98.2(TE); Pulse Ox 100% on R/A; Weight 77.11 kg; nj1 Height 5 ft. 4 in. ; 18:00 BP 134 / 89; Pulse 80; Resp 18; Pulse Ox 100% on R/A; db 18:20 BP 133 / 93; Pulse 85; Resp 18; Temp 98.1; Pulse Ox 97% ; db 19:10 BP 158 / 91; Pulse 73; Resp 20; Temp 97.7; Pulse Ox 100% on R/A; yb 19:40 BP 135 / 89; Pulse 72; Resp 18; Temp 98.1; Pulse Ox 100% on R/A; yb 20:50 BP 174 / 97; Pulse 66; Resp 18; Temp 97.3(TE); Pulse Ox 100% ; yb 21:50 BP 147 / 87; Pulse 74; Resp 18; Temp 97.9; Pulse Ox 100% on R/A; yb 22:20 BP 148 / 94; Pulse 67; Resp 18; Temp 97.8; Pulse Ox 100% ; yb 23:26 BP 151 / 96; Pulse 79; Resp 18; Temp 98(TE); Pulse Ox 98% on R/A; yb 17:03 Body Mass Index 29.18 (77.11 kg, 162.56 cm) nj1 [place] Coma Score: 17:20 Eye Response: spontaneous(4). Motor Response: obeys commands(6). Verbal Response: db oriented(5). Total: 15. ED Course: 16:57 Patient arrived in ED. mr 16:57 Guy Vizcarra, DO is Private Physician. mr 16:59 Shreyas Mera MD is Attending Physician. anselmo 17:03 Debby Oreilly, REJI is Primary Nurse. db 17:09 Triage completed. nj1 17:10 Arm band placed on. nj1 17:14 Warm blanket given. jg11 17:14 Client placed on continuous cardiac and pulse oximetry monitoring. NIBP monitoring jg11 applied. Pulse ox on. 17:14 Initial lab(s) drawn, by me, sent to lab. Inserted saline lock: 22 gauge in right jg11 antecubital area, using aseptic technique. Blood collected. 17:15 ABO/RH typing Sent. jg11 17:15 Antibody Screen Sent. jg11 17:15 CBC with Diff Sent. jg11 17:15 Comprehensive Metabolic Panel Sent. jg11 17:15 PRBC Sent. jg11 17:15 Type And Screen Sent. jg11 17:20 Consent for blood and/or blood product transfusion explained by staff, explained by db physician, signed by patient. 17:54 Guy Vizcarra DO is Referral Physician. [facility] 17:54 Celia Rodrigues MD is Referral Physician. [facility] 17:54 Danika Tan MD is Referral Physician. [facility] 18:15 PO fluids given. jg11 19:00 Report given to REJI WRAY. 19:09 Patient has correct armband on for positive identification. Bed in low position. Call db light in reach. Side rails up X 1. 20:11 Rosa Edwards, RN is Primary Nurse. [facility] 23:38 No provider procedures requiring assistance completed. IV discontinued, intact, yb bleeding controlled, No redness/swelling at site. Pressure dressing applied. 23:39 Provided Education on: Blood Transfusion, Follow up with OBGYN. yb Administered Medications: 17:20 Drug: NS 0.9% IV 1000 ml IV at 125 ml/hr continuous Route: IV; Rate: 125 ml/hr; Site: db right antecubital; 20:00 Follow up: Response: No adverse reaction; IV Intake: 1000ml 20:00 Follow up: Response: No adverse reaction; IV Status: Completed infusion; IV Intake: yb 1000ml Medication: 17:20 VIS not applicable for this client. 18:40 Blood products: PRBCs X 1 unit given. See transfusion record. db Intake: 20:00 IV: 1000ml; Total: 1000ml. yb Outcome: 17:54 Discharge ordered by . [facility] 23:38 Discharged to home ambulatory, with family, 23:38 Condition: stable 23:38 Discharge instructions given to patient, family, Instructed on discharge instructions, follow up and referral plans. medication usage, Demonstrated understanding of instructions, follow-up care, medications, Prescriptions given X 1, 23:40 Patient left the ED. yb Signatures: Shreyas Mera MD MD cha Rivera, Mary, Reg Reg mr Grace Rosa, RN RN ha1 Debby Oreilly RN RN db Indigo Mathews RN RN nj1 Marcellus Roberson1 Gemma Baeza RN RN yb Corrections: (The following items were deleted from the chart) 18:22 18:21 Reassessment: REQUEST FOR BLOOD SENT TO BLOOD BANK AND SIGNED [facility] [place] 23:59 20:00 Response: No adverse reaction; IV Intake: 1000ml yb yb 07/08 00:00 03 23:59 Response: No adverse reaction; IV Status: Completed infusion; IV Intake: yb 1000ml yb
[2023-07-08 18:08] LABS: Albumin 3.8 g/dL (3.4-5.0); Albumin/Globulin Ratio 1.1 (1.1-1.8); Anion Gap 9.4 mEq/L (5.0-15.0); Bilirubin Total 0.4 mg/dL (0.2-1.0); Globulin 3.6 g/dL (2.3-3.5); Potassium 3.4 mEq/L (3.5-5.1); Protein, Total 7.4 g/dL (6.4-8.2)
[2023-07-09 00:34] VITALS: BP 151/96; TEMP 98; O2SAT 98
== END ==
LOC: ER 16:56
DX: D50.0 Iron deficiency anemia secondary to blood loss (chronic) (principal); D64.9 Anemia, unspecified
CPT/HCPCS: 96361; 85025; 36415; 86900; 86850; 86901; 86920 ×2; 80053; 86922 ×2; 36430; 96360; 99285; P9016 ×2; J7050

== ENCOUNTER 2023-08-22 07:48 | Emergency (ER) | payer BC ==
--- NOTE | 2023-08-22 08:12 | ER ---
Nurse's Notes [facility] Name: Joyce Mera Age: 37 yrs Sex: Female : 1985 Arrival Date: 08/22/2023 Time: 07:48 Bed 20 Private MD: Guy Vizcarra Diagnosis: Historical: ED Course: 08/21 07:49 Patient arrived in ED. rg4 07:49 Guy Vizcarra DO is Private Physician. rg4 07:49 Patient Had to talk on her cell phone before going to room 20 for evaluation. ll1 07:51 Bayron Siddiqi DO is Attending Physician. ms3 08:00 Anais Siddiqi RN is Primary Nurse. ld1 Administered Medications: No medications were administered Outcome: 07:53 Condition: not in lobby or outside ll1 08:01 Condition: Not in lobby, outside, or restrooms. Called cell phone twice, went to voice ll1 mail 08:07 Eloped from waiting room, Time discovered patient gone: August 22, 2023 at 07:49 ll1 08:07 Condition: Not in lobby, restrooms, or outside. 08:11 Patient left the ED. ll1 Signatures: Candy Andrade rg4 Gurwinder Hercules RN RN ll1 Bayron Siddiqi DO DO ms3 Anais Siddiqi RN RN ld1 Corrections: (The following items were deleted from the chart) 07:57 07:50 Arm band placed on Patient placed in an exam room, on a stretcher, ll1 ll1 08:10 07:50 Allergies: No Known Allergies; ll1 ll1 08:10 07:50 PMHx: Anemia; ll1 ll1 08:10 07:50 PMHx: Anxiety; ll1 ll1 08:10 07:50 PMHx: blood transfusion; ll1 ll1 08:10 07:50 PMHx: chronic neck/nerve pain; ll1 ll1 08:10 07:50 PMHx: Hypertension; ll1 ll1 08:10 07:50 PSHx: section; ll1 ll1
== END 2023-08-22 08:11 | disposition left against medical advice (07) ==
LOC: ER 07:48
DX: Z02.9 Encounter for administrative examinations, unspecified (principal)

== ENCOUNTER 2023-09-21 00:51 | Emergency (ER) | payer BC, OTHER ==
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
[2023-09-21 06:17] VITALS: BP 140/92; TEMP 97.6; O2SAT 100
== END 2023-09-21 05:46 | disposition home or self-care (01) ==
LOC: ER 00:51
DX: F10.929 Alcohol use, unspecified with intoxication, unspecified (principal); V89.0XXA Person injured in unspecified motor-vehicle accident, nontraffic, initial encounter
CPT/HCPCS: 99283

== ENCOUNTER 2024-04-05 13:01 | Emergency (ER) | payer BC, OTHER ==
[2024-04-05 13:51] LABS: Specific Gravity 1.022 (1.005-1.030)
[2024-04-05 13:53] LABS: Specific Gravity 1.022 (1.005-1.030); Urine Bilirubin NEGATIVE (Negative); Urine Blood Negative (Negative); Urine Clarity Turbid (Clear); Urine Color Light-Yellow (Yellow); Urine Glucose NEGATIVE (Negative); Urine Ketones NEGATIVE (Negative); Urine Microscopic Reflex YN NO UMIC; Urine Nitrite NEGATIVE (Negative); Urine Protein NEGATIVE (Negative); Urine Urobilinogen Normal (Normal); Urine pH 6.5 (5.0-7.0)
[2024-04-05 13:57] LABS: Absolute Basophils 0.1 K/uL (0-0.5); Absolute Eosinophils 0.1 K/uL (0-0.5); Absolute Lymphocytes (CBC) 0.8 K/uL (0.7-4.9); Absolute Monocytes 0.2 K/uL (0.1-1.3); Absolute Neutrophil 3.1 K/uL (1.8-8.0); Basophils % 1.3 % (0-1.3); Eosinophils % 1.3 % (0-4.4); Hemoglobin 7.8 g/dL (12.0-15.0); Lymphocytes % 18.5 % (15.3-44.8); MCHC 30.2 g/dL (32.0-36.0); MCV 76.3 fL (80-100); MPV 7.8 fL (7.6-11.3); Monocytes % 5.6 % (3.3-12.3); Neutrophils % 73.3 % (41.7-73.7); Platelets 212 thou/uL (152-406); RBC Red Blood Cell Count 3.41 M/uL (3.86-4.86); Red Cell Distribution Width 24.6 % (12.1-15.2)
[2024-04-05 14:03] LABS: Anisocytosis 3+; Blood Morphology Comment NOTED (NOT SEEN); Platelet Estimate ADEQ; White Blood Cell Scan OK (OK)
[2024-04-05 14:04] LABS: Barbiturates NEGATIVE (NEGATIVE); Benzodiazepines NEGATIVE (NEGATIVE); Cocaine NEGATIVE (NEGATIVE); METHAMPHETAM NEGATIVE (NEGATIVE); Methadone NEGATIVE (NEGATIVE); Opiates NEGATIVE (NEGATIVE); Phencyclidine NEGATIVE (NEGATIVE); THC Cannibis NEGATIVE (NEGATIVE)
[2024-04-05 14:15] LABS: Albumin 3.5 g/dL (3.4-5.0); Albumin/Globulin Ratio 0.9 (1.1-1.8); Bilirubin Total 0.7 mg/dL (0.2-1.0); Globulin 3.7 g/dL (2.3-3.5); Protein, Total 7.2 g/dL (6.4-8.2); Troponin High Sensitivity 11.2 pg/mL (<58.9)
--- NOTE | 2024-04-05 14:28 | EDPHYS ---
Physician Documentation [facility] Name: Joyce Mera Age: 38 yrs Sex: Female : 1985 Arrival Date: 04/05/2024 Time: 13:01 Bed 19 Private MD: ED Physician Shreyas Mera HPI: 04/05 13:34 This 38 yrs old Female presents to ER via EMS with complaints of Chest Pain. anselmo 13:34 The patient or guardian reports chest pain that is located primarily in the anterior anselmo chest wall, bilaterally. The pain does not radiate. Associated signs and symptoms: The patient has no apparent associated signs or symptoms. The chest pain is described as aching. Duration: The patient or guardian reports multiple episodes, with no pattern. Modifying factors: The symptoms are alleviated by nothing. the symptoms are aggravated by nothing. Severity of pain: At its worst the pain was mild in the emergency department the pain has improved mildly. The patient has experienced similar episodes in the past, several times. 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 - Infectious Disease History:: Denies. - Social history:: Smoking status: Reported history of juuling and/or vaping. - Family history:: not pertinent. ROS: 13:34 Constitutional: Negative for fever, chills, and weight loss, Eyes: Negative for injury, anselmo pain, redness, and discharge, ENT: Negative for injury, pain, and discharge, Neck: Negative for injury, pain, and swelling, Respiratory: Negative for shortness of breath, cough, wheezing, and pleuritic chest pain, Abdomen/GI: Negative for abdominal pain, nausea, vomiting, diarrhea, and constipation, Back: Negative for injury and pain, : Negative for injury, bleeding, discharge, and swelling, MS/Extremity: Negative for injury and deformity, Skin: Negative for injury, rash, and discoloration, Neuro: Negative for headache, weakness, numbness, tingling, and seizure, Psych: Negative for depression, anxiety, suicide ideation, homicidal ideation, and hallucinations, Allergy/Immunology: Negative for hives, rash, and allergies, Endocrine: Negative for neck swelling, polydipsia, polyuria, polyphagia, and marked weight changes, Hematologic/Lymphatic: Negative for swollen nodes, abnormal bleeding, and unusual bruising, 13:34 Cardiovascular: Positive for chest pain, Exam: 13:34 Constitutional: This is a well developed, well nourished patient who is awake, alert, anselmo and in no acute distress. Head/Face: Normocephalic, atraumatic. Eyes: Pupils equal round and reactive to light, extra-ocular motions intact. Lids and lashes normal. Conjunctiva and sclera are non-icteric and not injected. Cornea within normal limits. Periorbital areas with no swelling, redness, or edema. ENT: Nares patent. No nasal discharge, no septal abnormalities noted. Tympanic membranes are normal and external auditory canals are clear. Oropharynx with no redness, swelling, or masses, exudates, or evidence of obstruction, uvula midline. Mucous membranes moist. Neck: Trachea midline, no thyromegaly or masses palpated, and no cervical lymphadenopathy. Supple, full range of motion without nuchal rigidity, or vertebral point tenderness. No Meningismus. Chest/axilla: Normal chest wall appearance and motion. Nontender with no deformity. No lesions are appreciated. Cardiovascular: Regular rate and rhythm with a normal S1 and S2. No gallops, murmurs, or rubs. Normal PMI, no JVD. No pulse deficits. Respiratory: Lungs have equal breath sounds bilaterally, clear to auscultation and percussion. No rales, rhonchi or wheezes noted. No increased work of breathing, no retractions or nasal flaring. Abdomen/GI: Soft, non-tender, with normal bowel sounds. No distension or tympany. No guarding or rebound. No evidence of tenderness throughout. Back: No spinal tenderness. No costovertebral tenderness. Full range of motion. Skin: Warm, dry with normal turgor. Normal color with no rashes, no lesions, and no evidence of cellulitis. MS/ Extremity: Pulses equal, no cyanosis. Neurovascular intact. Full, normal range of motion., bilateral aka Neuro: Awake and alert, GCS 15, oriented to person, place, time, and situation. Cranial nerves II-XII grossly intact. Motor strength 5/5 in all extremities. Sensory grossly intact. Cerebellar exam normal. Normal gait. Psych: Awake, alert, with orientation to person, place and time. Behavior, mood, and affect are within normal limits. 13:34 ECG was reviewed by the Attending Physician. 13:42 ECG was reviewed by the Attending Physician. [facility] Vital Signs: 13:09 BP 176 / 110; Pulse 80; Resp 17; Temp 98.4; Pulse Ox 100% ; Weight 81.65 kg; Height 5 me1 ft. 4 in. ; Pain 5/10; 14:00 BP 165 / 98; Pulse 80; Resp 19; Pulse Ox 99% on R/A; me1 13:09 Body Mass Index 30.90 (81.65 kg, 162.56 cm) de1 13:09 Pain Scale: Adult me1 MDM: 13:11 Medical Screening Exam initiated anselmo 13:36 HEART Score: History: Slightly Suspicious (0), ECG: Normal (0), Age: < or = 45 years anselmo (0), Risk Factors: 1 or 2 risk factors (1), [Hypertension] [Obesity] Troponin: < or = 1 x Normal Limit (0). GRANT Risk Score: TOTAL SCORE = 0. Data reviewed: vital signs, nurses notes, lab test result(s), EKG, radiologic studies, plain films. Consideration of Admission/Observation Escalation of care including admission/observation considered. I considered the following discharge prescriptions or medication management in the emergency department Medications were administered in the Emergency Department. See MAR. Independent interpretation of the following test(s) in the Emergency Department EKG: See my EKG interpretation above. Test considered but Not performed: CT: no ct pe. Historians other than the Patient: EMS: ems well informed. Care significantly affected by the following chronic conditions: Hypertension, Obesity, anemia. Counseling: I had a detailed discussion with the patient and/or guardian regarding the historical points, exam findings, and any diagnostic results supporting the discharge/admit diagnosis, lab results, radiology results, the need for outpatient follow up, for definitive care, a equipment specialist, a family practitioner. 04/05 13:12 Order name: CBC with Diff; Complete Time: 14:[address] [facility] 04/05 13:12 Order name: Comprehensive Metabolic Panel; Complete Time: 14:[address] [facility] 04/05 13:12 Order name: Urinalysis w/ reflexes; Complete Time: 14:[address] [facility] 04/05 13:12 Order name: PREGU; Complete Time: 14:[address] [facility] 04/05 13:12 Order name: UDS; Complete Time: 14:[address] [facility] 04/05 13:12 Order name: Troponin High Sensitivity; Complete Time: 14:[address] [facility] 04/05 14:03 Order name: CBC Smear Scan; Complete Time: 14:12 EDMS 04/05 13:12 Order name: Chest Single View XRAY [facility] 04/05 13:12 Order name: EKG; Complete Time: 13:[address] [facility] 04/05 13:12 Order name: EKG - Nurse/Tech; Complete Time: 13:[address] [facility] 04/05 14:12 Order name: Orthostatics; Complete Time: 14:[address] [facility] EC:42 Rate is 79 beats/min. Rhythm is regular. QRS Graham is Normal. [place] interval is normal. QRS anselmo interval is normal. QT interval is normal. No Q waves. T waves are Normal. No ST changes noted. Clinical impression: Normal ECG and No evidence of ischemia. Interpreted by me. Reviewed by me. Administered Medications: No medications were administered Disposition Summary: 04/05/24 14:27 Discharge Ordered Notes: Location: Home anselmo Problem: new anselmo Symptoms: have improved anselmo Condition: Stable anselmo Diagnosis - Essential (primary) hypertension anselmo - Anemia, unspecified anselmo - Iron deficiency anemia secondary to blood loss (chronic) anselmo - Leiomyoma of uterus, unspecified anselmo Followup: anselmo - With: Private Physician - When: 2 - 3 days - Reason: Recheck today's complaints, Continuance of care, Re-evaluation by your physician Followup: anselmo - With: Danika Tan MD - When: 2 - 3 days - Reason: Recheck today's complaints, Re-evaluation by your physician Followup: anselmo - With: Carlos Salazar MD - When: 2 - 3 days - Reason: Recheck today's complaints, Re-evaluation by your physician Discharge Instructions: - Discharge Summary Sheet anselmo - Anemia anselmo - Iron-Rich Diet anselmo - Hypertension, Adult anselmo - Hypertension, Adult, [id number] anselmo - How to Take Your Blood Pressure, [id number] anselmo - Managing Your Hypertension anselmo Forms: - Medication Reconciliation Form anselmo - Antibiotic Education anselmo - Prescription Opioid Use anselmo - Patient Portal Instructions anselmo - Leadership Thank You Letter anselmo Prescriptions: - Lotrel 5-10 mg Oral capsule - take 1 capsule ORAL route once; 20 capsule; Refills: 0, Product Selection [facility] Permitted - Ferrous Sulfate 325 mg (65 mg Iron) Oral tablet - take 1 tablet ORAL route 3 times per day; 60 tablet; Refills: 0, Product [facility] Selection Permitted Signatures: Dispatcher [employer] Shreyas Arellano MD MD cha Eddleman, Michelle, RN RN me1
--- NOTE | 2024-04-05 14:28 | ER ---
Nurse's Notes [facility] Name: Joyce Mera Age: 38 yrs Sex: Female : 1985 Arrival Date: 04/05/2024 Time: 13:01 Bed 19 Private MD: Diagnosis: Essential (primary) hypertension;Anemia, unspecified;Iron deficiency anemia secondary to blood loss (chronic);Leiomyoma of uterus, unspecified Presentation: 04/05 13:09 Chief complaint: Patient states: left sided chest pain that started about 2 hours ago me1 while paying some tickets at the [employer]. 10/23 radiating to under left breast and to left shoulder and arm. Reports she has had a cough for a few days. Coronavirus screen: Vaccine status: Patient reports being unvaccinated. Ebola Screen: No symptoms or risks identified at this time. Initial Sepsis Screen: Does the patient meet any 2 criteria? No. Patient's initial sepsis screen is negative. Does the patient have a suspected source of infection? No. Patient's initial sepsis screen is negative. Risk Assessment: Do you want to hurt yourself or someone else?. Risk Assessment: Do you want to hurt yourself or someone else? Patient reports no desire to harm self or others. Onset of symptoms was April 05, 2024 at 11:00. 13:09 Method Of Arrival: EMS: [facility] [place] 13:09 Acuity: ALICIA 3 me1 Triage Assessment: 13:12 General: Appears uncomfortable, well groomed, well developed, well nourished, Behavior me1 is calm, cooperative, appropriate for age. Pain: Complains of pain in anterior aspect of left upper chest Pain radiates to left clavicle and left breast and left arm Pain currently is 5 out of 10 on a pain scale. at worst was 7 out of 10 on a pain scale. Quality of pain is described as burning, sharp, Pain began suddenly, Is continuous. EENT: No signs and/or symptoms were reported regarding the EENT system. Neuro: Level of Consciousness is awake, alert, obeys commands, Oriented to person, place, time, situation, Appropriate for age. Cardiovascular: Patient's skin is warm and dry. Cardiovascular: Reports chest pain. Respiratory: Reports cough that is Airway is patent Respiratory effort is even, unlabored, Respiratory pattern is regular, symmetrical. GI: No signs and/or symptoms were reported involving the gastrointestinal system. : No signs and/or symptoms were reported regarding the genitourinary system. Derm: Skin is intact, is healthy with good turgor, Skin is pink, warm \T\ dry. Musculoskeletal: No signs and/or symptoms reported regarding the musculoskeletal system. 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 - Infectious Disease History:: Denies. - Social history:: Smoking status: Reported history of juuling and/or vaping. - Family history:: not pertinent. Screenin:09 [facility] ED Fall Risk Assessment (Adult) History of falling in the last 3 months, me1 including since admission No falls in past 3 months (0 pts) Confusion or Disorientation No (0 pts) Intoxicated or Sedated No (0 pts) Impaired Gait No (0 pts) Mobility Assist Device Used No (0 pt) Altered Elimination No (0 pt) Score/Fall Risk Level 0 - 2 = Low Risk Maintained a safe environment, Provided non-skid footwear, Hourly rounding (assess needs \T\ fall precautionary measures) done. Abuse screen: Denies threats or abuse. Nutritional screening: No deficits noted. Tuberculosis screening: No symptoms or risk factors identified. Assessment: 13:09 General: See triage assessment. wa1 Vital Signs: 13:09 BP 176 / 110; Pulse 80; Resp 17; Temp 98.4; Pulse Ox 100% ; Weight 81.65 kg; Height 5 me1 ft. 4 in. ; Pain 5/10; 14:00 BP 165 / 98; Pulse 80; Resp 19; Pulse Ox 99% on R/A; me1 13:09 Body Mass Index 30.90 (81.65 kg, 162.56 cm) me1 13:09 Pain Scale: Adult [facility] [place] ED Course: 13:08 Patient arrived in ED. me1 13:09 Patient has correct armband on for positive identification. Bed in low position. Call [facility] [place] [place] light in reach. Side rails up X2. Provided Education on: POC. Verbalized understanding.. Client placed on continuous cardiac and pulse oximetry monitoring. NIBP monitoring applied. color television console monitor on. Pulse ox on. NIBP on. 13:09 No provider procedures requiring assistance completed. Maintain EMS IV. Dressing me1 intact. Good blood return noted. Site clean \T\ dry. Gauge \T\ site: 18g LAC. Flushed with 10 mL NS. Patient maintains SpO2 saturation greater than 95% on room air. 13:11 Shreyas Mera MD is Attending Physician. [facility] 13:12 Triage completed. me1 13:12 Arm band placed on Patient placed in an exam room. me1 13:16 Phill Myles, RN is Primary Nurse. rs5 13:23 Jhoana Colon, RN is Primary Nurse. me1 13:37 UDS Sent. me1 13:37 PREGU Sent. me1 13:37 Urinalysis w/ reflexes Sent. me1 13:37 Urine collected: clean catch specimen, cloudy, EKG done, by ED staff, reviewed by Shreyas martin1 Ede GRADY. 13:51 Troponin High Sensitivity Sent. me1 13:51 Comprehensive Metabolic Panel Sent. me1 13:51 CBC with Diff Sent. me1 14:25 Danika Tan MD is Referral Physician. [facility] 14:25 Carlos Salazar MD is Referral Physician. [facility] 14:28 Chest Single View XRAY In Process Unspecified. EDFL 14:44 IV discontinued, intact, bleeding controlled, No redness/swelling at site. Pressure me1 dressing applied. Administered Medications: No medications were administered Medication: 13:09 VIS not applicable for this client. me1 Outcome: 14:27 Discharge ordered by . [facility] 14:50 Discharged to home ambulatory, [facility] [place] [place] 14:50 Condition: stable 14:50 Discharge instructions given to patient, Instructed on discharge instructions, follow up and referral plans. medication usage, Demonstrated understanding of instructions, follow-up care, medications, Prescriptions given X 2, 14:50 Patient left the ED. me1 Signatures: Dispatcher [employer] EDShreyas Torres MD MD cha Sotelo, Ricky, RN RN rs5 Jhoana Colon, REJI RN me1
--- NOTE | 2024-04-05 14:42 | RAD REPORT ---
EXAM: Chest Single View HISTORY: CHEST PAIN COMPARISON: 05/11/2023 FINDINGS: LUNGS/PLEURA: The lungs are clear. No pleural effusions or pneumothorax. No pulmonary edema. MEDIASTINUM: The mediastinal silhouette is within normal limits. CARDIAC: Apparent increase in size of the cardiopericardial silhouette. UPPER ABDOMEN: No significant abnormality. BONES: No acute fracture. LINES/TUBES/OTHER: N/A IMPRESSION: No definite evidence of acute cardiopulmonary disease. Apparent increase in size of the cardiopericar dial silhouette could be magnified by low lung volumes. If there is concern for pericardial effusion, echocardiography could further evaluate.
[2024-04-05 14:55] VITALS: TEMP 98.4
[2024-04-05 14:57] VITALS: BP 165/98; O2SAT 99
--- NOTE | 2024-04-06 13:06 | EKG ---
Test Date: 2024-04-05 Test Time: 13:34:08 Certified Ethical Hacker: MEASUREMENT RESULTS: Intervals: Rate: 79 MN: 132 QRSD: 108 QT: 402 QTc: 460 Tyrone: P: 53 MN: 132 QRS: 64 T: 58 INTERPRETIVE STATEMENTS: Normal sinus rhythm Normal ECG Compared to ECG 05/24/2023 23:57:48 No significant changes Electronically Signed On 04-06-24 13:04:03 MORNING SHOW NEWSCAST PRODUCER by Lobito Mathew
== END 2024-04-05 14:50 | disposition home or self-care (01) ==
LOC: ER 13:01
DX: R07.9 Chest pain, unspecified (principal); I10 Essential (primary) hypertension; D50.0 Iron deficiency anemia secondary to blood loss (chronic); D25.9 Leiomyoma of uterus, unspecified; F17.290 Nicotine dependence, other tobacco product, uncomplicated
CPT/HCPCS: 36415; 71045; 80053; 80307; 81003; 81025; 84484; 85025; 93005; 99284

== ENCOUNTER 2024-04-26 23:29 | Emergency (ER) | payer BC ==
[2024-04-26] MEDS ORDERED: METOCLOPRAMIDE 10 MG/2mL INJ ONE (23:53)
[2024-04-26] MEDS ORDERED: DIPHENHYDRAMINE 50 MG/ML VIAL ONE (23:53)
[2024-04-26] MEDS ORDERED: NA CHLORIDE 0.9% 100 ML ONE (23:53)
[2024-04-27 00:15] LABS: Absolute Eosinophils 0.1 K/uL (0-0.5); Absolute Lymphocytes (CBC) 1.5 K/uL (0.7-4.9); Absolute Monocytes 0.3 K/uL (0.1-1.3)
[2024-04-27 00:19] LABS: Absolute Neutrophil 2.5 K/uL (1.8-8.0); Basophils % 1.1 % (0-1.3); Eosinophils % 1.8 % (0-4.4); Hematocrit 25.6 % (36.0-45.0); Lymphocytes % 34.5 % (15.3-44.8); MCH 22.8 pg (27.0-35.0); MCHC 31.3 g/dL (32.0-36.0); MCV 72.9 fL (80-100); Monocytes % 6.1 % (3.3-12.3); Neutrophils % 56.5 % (41.7-73.7); Nucleated Red Blood Cells % 0.1 % (0-0); Platelets 222 thou/uL (152-406); RBC Red Blood Cell Count 3.52 M/uL (3.86-4.86); Red Cell Distribution Width 23.1 % (12.1-15.2)
[2024-04-27 00:22] LABS: Anion Gap 10.9 mEq/L (5.0-15.0); Potassium 3.9 mEq/L (3.5-5.1); Troponin High Sensitivity 5.3 pg/mL (<58.9)
--- NOTE | 2024-04-27 01:18 | RAD REPORT ---
EXAM DESCRIPTION: Chest Single View CLINICAL HISTORY: CHEST PAIN COMPARISON: None TECHNIQUE: 2 AP views of the chest. FINDINGS: Lung volumes adequate. Cardiac silhouette is normal in size. No pneumothorax. No large pleural effusion. No focal consolidation. No acute bony finding. IMPRESSION: No evidence of acute cardiopulmonary disease. Electronically signed by: Soraya Gray MD 04/27/2024 01:10 AM [facility] Z9 Due to temporary technical issues with the [employer] reporting system, reports are being alfredo d by the in-house radiologist without review as a courtesy to ensure prompt reporting the interpreting radiologist is fully responsible for the content of the report. Transcribed Date/Time: 04/27/2024 1:17 AM
--- NOTE | 2024-04-27 01:23 | ER ---
Nurse's Notes [facility] Name: Joyce Mera Age: 38 yrs Sex: Female : 1985 Arrival Date: 04/26/2024 Time: 23:29 Bed 2 Private MD: Diagnosis: Chest pain, unspecified Presentation: 04/26 23:29 Chief complaint: Patient states: chest pain after being arrested [place] this bm8 evening. 23:29 Coronavirus screen: At this time, the client does not indicate any symptoms associated bm8 with coronavirus-19. Ebola Screen: Patient negative for fever greater than or equal to 101.5 degrees Fahrenheit, and additional compatible Ebola Virus Disease symptoms Patient denies exposure to infectious person. Patient denies travel to an Ebola-affected area in the 21 days before illness onset. No symptoms or risks identified at this time. Initial Sepsis Screen: Does the patient meet any 2 criteria? No. Patient's initial sepsis screen is negative. Does the patient have a suspected source of infection? No. Patient's initial sepsis screen is negative. Risk Assessment: Do you want to hurt yourself or someone else? Patient reports no desire to harm self or others. Onset of symptoms is unknown. Care prior to arrival: Medication(s) given: aspirin 324 mg and nitro 0.4 sl IV initiated. 20 GA, in the right antecubital area. 23:29 Method Of Arrival: EMS: [facility] bm8 23:29 Acuity: ALICIA 3 bm8 Triage Assessment: 23:38 General: Appears in no apparent distress. uncomfortable, Behavior is cooperative, bm8 appropriate for age, anxious, Smells of alcohol, Reports chills for 0-12 hours. Pain: Complains of pain in left breast Pain currently is 7 out of 10 on a pain scale. Quality of pain is described as aching. EENT: No deficits noted. No signs and/or symptoms were reported regarding the EENT system. Neuro: No deficits noted. Level of Consciousness is awake, alert, obeys commands, Oriented to person, place, time, situation, Appropriate for age. Cardiovascular: Reports chest pain, Heart tones S1 S2 present Capillary refill < 3 seconds in bilateral fingers Patient's skin is warm and dry. Respiratory: Airway is patent Respiratory effort is even, unlabored, Respiratory pattern is regular, symmetrical, Breath sounds are clear bilaterally. GI: No signs and/or symptoms were reported involving the gastrointestinal system. : No signs and/or symptoms were reported regarding the genitourinary system. Derm: No signs and/or symptoms reported regarding the dermatologic system. Musculoskeletal: No signs and/or symptoms reported regarding the musculoskeletal system. ESCALATOR OPERATOR: 23:38 unknown bm8 Historical: - Allergies: 23:38 No Known Allergies; bm8 - Home Meds: 23:38 amlodipine oral once for Hypertension [Active]; gabapentin 300 mg Oral capsule 3 times bm8 per day for Neuropathic Pain [Active]; Lexapro Oral [Active]; - PMHx: 23:38 Anemia; Hypertensive disorder; bm8 - PSHx: 23:38 Unable to Obtain; bm8 - Immunization history:: Adult Immunizations up to date. - Infectious Disease History:: Denies. - Social history:: Smoking status: unknown Patient uses alcohol, street drugs. Screenin/12 01:00 [facility] ED Fall Risk Assessment (Adult) History of falling in the last 3 months, bm8 including since admission No falls in past 3 months (0 pts) Confusion or Disorientation No (0 pts) Intoxicated or Sedated No (0 pts) Impaired Gait No (0 pts) Mobility Assist Device Used No (0 pt) Altered Elimination No (0 pt) Score/Fall Risk Level 0 - 2 = Low Risk Oriented to surroundings, Maintained a safe environment, Educated pt \T\ family on fall prevention, incl call for assistance when getting out of bed, Assessed \T\ reinforced patient's understanding of fall precautions, Hourly rounding (assess needs \T\ fall precautionary measures) done, Used ambulatory aids as needed (educated on \T\ assisted with), Used gait belt as appropriate. Abuse screen: Denies threats or abuse. Nutritional screening: No deficits noted. Tuberculosis screening: No symptoms or risk factors identified. Assessment: 01:00 Reassessment: Patient appears in no apparent distress at this time. Patient and/or bm8 family updated on plan of care and expected duration. Pain level reassessed. Patient is alert, oriented x 3, equal unlabored respirations, skin warm/dry/pink. pt is resting with eyes closed breathing is even unlabored with symmetrical rise and fall of chest, Police at bedside. Patient denies pain at this time. Patient states feeling better. Patient states symptoms have improved. General: Appears in no apparent distress. comfortable. Pain: Pain does not radiate. Pain began 2 hours ago. Neuro: No deficits noted. Level of Consciousness is alert, obeys commands, Oriented to person, place, time, situation, Appropriate for age. Cardiovascular: Denies chest pain, Capillary refill < 3 seconds in bilateral fingers Patient's skin is warm and dry. Respiratory: Airway is patent Respiratory effort is even, unlabored, Respiratory pattern is regular, symmetrical. GI: No signs and/or symptoms were reported involving the gastrointestinal system. : No signs and/or symptoms were reported regarding the genitourinary system. EENT: No signs and/or symptoms were reported regarding the EENT system. Derm: No signs and/or symptoms reported regarding the dermatologic system. Musculoskeletal: No signs and/or symptoms reported regarding the musculoskeletal system. Vital Signs: 04/26 23:29 BP 136 / 51; Pulse 102; Resp 18; Temp 97.5; Pulse Ox 100% ; Weight 82.55 kg; Height 5 bm8 ft. 5 in. ; Pain 7/10; 04/27 01:00 BP 141 / 85; Pulse 104; Resp 17; Temp 97.5; Pulse Ox 99% ; Pain 0/10; bm8 01:33 BP 137 / 83; Pulse 105; Resp 16; Pulse Ox 100% on R/A; al5 04/26 23:29 Body Mass Index 30.29 (82.55 kg, 165.1 cm) bm8 04/26 23:29 Pain Scale: Adult bm8 04/27 01:00 Pain Scale: Adult bm8 [place] Coma Score: 01:00 Eye Response: spontaneous(4). Motor Response: obeys commands(6). Verbal Response: bm8 oriented(5). Total: 15. ED Course: 04/26 23:29 Patient arrived in ED. rv1 23:32 Gissel Villela FNP-C [facility]. kb 23:32 Gonzalo Lazo MD is Attending Physician. kb 23:36 Uriel Wang, REJI is Primary Nurse. bm8 23:38 Triage completed. bm8 23:38 Arm band placed on left wrist. bm8 04/27 00:00 XRAY Chest (1 view) In Process Unspecified. EDMS 01:00 Patient has correct armband on for positive identification. Placed in gown. Bed in low bm8 position. Call light in reach. Side rails up X 1. Provided Education on: post er care. Client placed on continuous cardiac and pulse oximetry monitoring. NIBP monitoring applied. school bus monitor on. Pulse ox on. NIBP on. 01:00 No provider procedures requiring assistance completed. Patient maintains SpO2 bm8 saturation greater than 95% on room air. 01:33 Maintain EMS IV. Dressing intact. Good blood return noted. Site clean \T\ dry. Gauge \T\ al 5 site: 20G RAC. 01:34 IV discontinued, intact, bleeding controlled, No redness/swelling at site. Pressure al5 dressing applied. Administered Medications: 04/26 23:56 Drug: metoCLOPramide IVP 10 mg IVP once; over 1 to 2 minutes Route: IVP; Site: right bm8 antecubital; 04/27 00:35 Follow up: Response: No adverse reaction bm8 04/26 23:56 Drug: diphenhydrAMINE IVP 25 mg IVP once Route: IVP; Site: right antecubital; bm8 04/27 00:35 Follow up: Response: No adverse reaction bm8 Medication: 01:35 VIS not applicable for this client. al5 Outcome: 01:23 Discharge ordered by . ec2 01:35 Discharged to Law Enforcement al5 01:35 Condition: good 01:35 Discharge instructions given to patient, police, Instructed on discharge instructions, follow up and referral plans. Demonstrated understanding of instructions, follow-up care, 01:36 Patient left the ED. al5 Signatures: Dispatcher [employer] EDGissel Ribera, JACQUELINE SWEENEY-[place] rv1 Gonzalo Lazo MD MD ec2 Uriel Wang, RN RN bm8 Roselia Jeffery, RN RN al5
--- NOTE | 2024-04-27 01:23 | EDPHYS ---
Physician Documentation [facility] Name: Joyce Mera Age: 38 yrs Sex: Female : 1985 Arrival Date: 04/26/2024 Time: 23:29 Bed 2 Private MD: ED Physician Gonzalo Lazo HPI: 04/26 23:59 This 38 yrs old Female presents to ER via EMS with complaints of Chest Pain. ec2 23:59 Patient arrives today for chest pain. Patient reports nausea and vomiting after having ec2 multiple alcoholic beverages tonight. Patient brought in by PD under custody.. STRATEGIES ANALYST: 23:38 unknown bm8 Historical: - Allergies: 23:38 No Known Allergies; bm8 - Home Meds: 23:38 amlodipine oral once for Hypertension [Active]; gabapentin 300 mg Oral capsule 3 times bm8 per day for Neuropathic Pain [Active]; Lexapro Oral [Active]; - PMHx: 23:38 Anemia; Hypertensive disorder; bm8 - PSHx: 23:38 Unable to Obtain; bm8 - Immunization history:: Adult Immunizations up to date. - Infectious Disease History:: Denies. - Social history:: Smoking status: unknown Patient uses alcohol, street drugs. ROS: 23:59 Constitutional: as per hpi ec2 Exam: 23:59 Constitutional: GEN: NAD Head: atraumatic Eyes: EOMI Ears: External ears are ec2 normal. CV: Tachycardia LUNGS: no respiratory distress ABD: non-distended SKIN: no evidence of rashes MSK: no evidence of trauma Vital Signs: 23:29 BP 136 / 51; Pulse 102; Resp 18; Temp 97.5; Pulse Ox 100% ; Weight 82.55 kg; Height 5 bm8 ft. 5 in. ; Pain 7/10; 04/27 01:00 BP 141 / 85; Pulse 104; Resp 17; Temp 97.5; Pulse Ox 99% ; Pain 0/10; bm8 01:33 BP 137 / 83; Pulse 105; Resp 16; Pulse Ox 100% on R/A; al5 04/26 23:29 Body Mass Index 30.29 (82.55 kg, 165.1 cm) bm8 04/26 23:29 Pain Scale: Adult bm8 04/27 01:00 Pain Scale: Adult bm8 [place] Coma Score: 01:00 Eye Response: spontaneous(4). Motor Response: obeys commands(6). Verbal Response: bm8 oriented(5). Total: 15. MDM: 04/26 23:32 Medical Screening Exam initiated kb 23:59 Data reviewed: vital signs, nurses notes. ED course: Patient arrives today for chest ec2 pain and nausea and vomiting. Examination yields slight tachycardia otherwise well-appearing nontoxic individuals otherwise in no acute distress. EKG obtained, dependently reviewed and interpreted by me, shows normal sinus rhythm, rate 95, no acute ST segment elevations, normals are nonactionable. Of note patient with known history of chronic anemia as well.. 04/27 00:49 ED course: Chest x-ray independently reviewed and interpreted by me, shows no acute ec2 intrathoracic process.. 01:23 ED course: On reassessment patient with improvement in symptoms, improvement in nausea ec2 and vomiting. Will discharge home. Return precautions given.. 04/26 23:38 Order name: Basic Metabolic Panel; Complete Time: 00:44 ec2 04/26 23:38 Order name: CBC with Diff ec2 04/26 23:38 Order name: Troponin HS; Complete Time: 00:44 ec2 04/26 23:38 Order name: Type And Screen; Complete Time: 00:46 ec2 04/26 23:38 Order name: XRAY Chest (1 view) ec2 04/26 23:38 Order name: EKG; Complete Time: 23:39 ec2 04/26 23:38 Order name: Cardiac monitoring; Complete Time: 23:56 ec2 04/26 23:38 Order name: EKG - Nurse/Tech; Complete Time: 23:56 ec2 04/26 23:38 Order name: IV Saline Lock; Complete Time: 23:56 ec2 04/26 23:38 Order name: Labs collected and sent; Complete Time: 23:56 ec2 04/26 23:38 Order name: O2 Per Protocol; Complete Time: 23:56 ec2 04/26 23:38 Order name: O2 Sat Monitoring; Complete Time: 23:56 ec2 Administered Medications: 04/26 23:56 Drug: metoCLOPramide IVP 10 mg IVP once; over 1 to 2 minutes Route: IVP; Site: right bm8 antecubital; 04/27 00:35 Follow up: Response: No adverse reaction bm8 04/26 23:56 Drug: diphenhydrAMINE IVP 25 mg IVP once Route: IVP; Site: right antecubital; bm8 04/27 00:35 Follow up: Response: No adverse reaction bm8 Disposition Summary: 04/27/24 01:23 Discharge Ordered Notes: Location: Home ec2 Condition: Stable ec2 Diagnosis - Chest pain, unspecified ec2 Followup: ec2 - With: Private Physician - When: - Reason: Re-evaluation by your physician Discharge Instructions: - Discharge Summary Sheet ec2 - Nonspecific Chest Pain, Adult, [id number] ec2 Forms: - Medication Reconciliation Form ec2 - Antibiotic Education ec2 - Prescription Opioid Use ec2 - Patient Portal Instructions ec2 - Leadership Thank You Letter ec2 Signatures: Dispatcher [employer] Gissel Lares, ZHARA-C MUTUEL MACHINE OPERATOR-Gonzalo Lomeli MD MD ec2 Uriel Wang RN RN bm8
[2024-04-27 01:43] LABS: Anisocytosis 1+; Blood Morphology Comment NOTED (NOT SEEN); Platelet Estimate ADEQ; White Blood Cell Scan OK (OK)
[2024-04-27 01:44] LABS: Hypochromasia 1+; Polychromasia SLIGHT
[2024-04-29 15:47] VITALS: BP 137/83; TEMP 97.5; O2SAT 100
--- NOTE | 2024-05-01 12:12 | EKG ---
Test Date: 2024-04-26 Test Time: 23:45:54 Motor Vehicle Light Assembler: SHE MEASUREMENT RESULTS: Intervals: Rate: 95 NV: 136 QRSD: 110 QT: 368 QTc: 462 [place]: P: 61 NV: 136 QRS: 82 T: 64 INTERPRETIVE STATEMENTS: Normal sinus rhythm Incomplete right bundle branch block Borderline ECG Compared to ECG 04/05/2024 13:34:08 Incomplete right bundle-branch block now present Electronically Signed On 05-01-24 12:09:01 CUSTOMER COMPLAINT CLERK by Lobito Mathew
== END 2024-04-27 01:36 | disposition home or self-care (01) ==
LOC: ER 23:29
DX: R07.9 Chest pain, unspecified (principal); I10 Essential (primary) hypertension; Z79.899 Other long term (current) drug therapy
CPT/HCPCS: 93005; 85025; 80048; 36415; 86900; 86850; 86901; 84484; 71045; 96375; 96374; 99285; J2765; J1200

== ENCOUNTER 2024-05-23 21:11 | Emergency (ER) | payer BC ==
[2024-05-23] MEDS ORDERED: ACETAMINOPHEN 500 MG TAB ONE (22:03)
[2024-05-23] MEDS ORDERED: NA CHLORIDE 0.9% 1,000 ML ONE (22:03)
[2024-05-23 22:11] LABS: PT Prothrombin Time 11.9 SECONDS (9.4-12.5); Protime INR 1.13
--- NOTE | 2024-05-23 22:20 | RAD REPORT ---
Procedure: Chest Single View HISTORY: Shortness of breath COMPARISON: April 2024 FINDINGS: The lungs appear clear of acute infiltrate. No significant pleural effusion noted. The heart is normal size. IMPRESSION: No acute abnormality is displayed.
[2024-05-23 22:22] LABS: ALT/SGPT 18 U/L (13-56); AST/SGOT 15 U/L (15-37); Albumin 3.8 g/dL (3.4-5.0); Alkaline Phosphatase 75 U/L (45-117); Anion Gap 5.8 mEq/L (5.0-15.0); BUN Blood Urea Nitrogen 14 mg/dL (7-18); Bicarbonate 27 mEq/L (21-32); Bilirubin Total 0.5 mg/dL (0.2-1.0); Globulin 3.7 g/dL (2.3-3.5); Glomerular Filtration Rate 112 ml/min (=/>90); Glucose Level 95 mg/dL (74-106); Magnesium 2.1 mg/dL (1.6-2.4); Potassium 3.8 mEq/L (3.5-5.1); Protein, Total 7.5 g/dL (6.4-8.2); Sodium Level 141 mEq/L (136-145); Troponin High Sensitivity 4.6 pg/mL (<58.9)
[2024-05-23 22:25] LABS: Bilirubin Direct < 0.2 mg/dL (0-0.2); Bilirubin Indirect, Calculated 0.3 mg/dL (0.2-0.8)
[2024-05-23 22:32] LABS: Absolute Basophils 0.1 K/uL (0-0.5); Absolute Eosinophils 0.1 K/uL (0-0.5); Absolute Lymphocytes (CBC) 1.2 K/uL (0.7-4.9); Absolute Monocytes 0.3 K/uL (0.1-1.3); Absolute Neutrophil 1.8 K/uL (1.8-8.0); Basophils % 1.6 % (0-1.3); Eosinophils % 2.2 % (0-4.4); Hematocrit 26.8 % (36.0-45.0); Hemoglobin 7.9 g/dL (12.0-15.0); Lymphocytes % 34.1 % (15.3-44.8); MCH 20.8 pg (27.0-35.0); MCHC 29.5 g/dL (32.0-36.0); MCV 70.7 fL (80-100); MPV 9.1 fL (7.6-11.3); Monocytes % 7.6 % (3.3-12.3); Neutrophils % 54.5 % (41.7-73.7); Platelets 194 thou/uL (152-406); Red Cell Distribution Width 20.4 % (12.1-15.2)
--- NOTE | 2024-05-24 00:33 | EDPHYS ---
Physician Documentation [facility] Name: Joyce Mera Age: 38 yrs Sex: Female : 1985 Arrival Date: 05/23/2024 Time: 21:11 Bed 10 Private MD: ED Physician Peterson Lambert HPI: 05/23 21:33 This 38 yrs old Female presents to ER via [employer] Enforcement with complaints of High Blood cp Pressure, Dizziness. 21:33 The patient presents with dizziness, lightheadedness. cp 21:33 Onset: The symptoms/episode began/occurred today. Context: occurred while the patient cp was in senior living. Associated signs and symptoms: Pertinent positives: chest pain, heavy menstrual bleeding times 2 days, Pertinent negatives: diaphoresis, focal weakness, syncope. Patient's baseline: Neuro: alert and fully oriented, Motor: no deficits, Ambulation: walks without assistance, Speech: normal. Patient reports history of anemia due to heavy menstrual bleeding that has required blood transfusions in the past. Missed recent appt with gynecology . Historical: - Allergies: 22:18 No Known Allergies; br2 - PMHx: 22:18 Anemia; Hypertensive disorder; br2 - Immunization history:: Adult Immunizations not up to date. - Infectious Disease History:: Denies. - Social history:: Smoking status: Reported history of juuling and/or vaping. Patient/guardian denies using alcohol, street drugs. ROS: 21:35 Eyes: Negative for injury, pain, redness, and discharge, cp 21:35 Constitutional: Negative for body aches, chills, fever, poor PO intake, 21:35 ENT: Negative for drainage from ear(s), ear pain, sore throat, difficulty swallowing, difficulty handling secretions, 21:35 Respiratory: Negative for cough, wheezing, 21:35 Abdomen/GI: Negative for vomiting, diarrhea, constipation, 21:35 Back: Negative for pain at rest, pain with movement, 21:35 Neuro: Positive for dizziness, Negative for altered mental status, syncope, near syncope, 21:35 All other systems are negative, 21:35 Cardiovascular: Positive for chest pain, Negative for edema, cp Exam: 21:38 ECG was reviewed by the Attending Physician. cp 21:40 Constitutional: The patient appears in no acute distress, alert, awake, cp non-diaphoretic, non-toxic, well developed, well nourished, overweight 21:40 Head/Face: Normocephalic, atraumatic. cp 21:40 Eyes: Periorbital structures: appear normal, Conjunctiva: normal, no exudate, no injection, Sclera: no appreciated abnormality, Lids and lashes: appear normal, bilaterally, 21:40 ENT: External ear(s): are unremarkable, Nose: is normal, Mouth: Lips: moist, Oral mucosa: pink and intact, moist, Posterior pharynx: Airway: no evidence of obstruction, patent, 21:40 Neck: ROM/movement: is normal, is supple, without pain, no range of motions limitations, 21:40 Chest/axilla: Inspection: normal, 21:40 Cardiovascular: Rate: normal, Rhythm: regular, Edema: is not appreciated, JVD: is not appreciated, 21:40 Respiratory: the patient does not display signs of respiratory distress, Respirations: normal, no use of accessory muscles, no retractions, labored breathing, is not present, Breath sounds: are clear throughout, no decreased breath sounds, no stridor, no wheezing, 21:40 Abdomen/GI: Inspection: abdomen appears normal, Bowel sounds: active, all quadrants, Palpation: soft, in all quadrants, mild abdominal tenderness, in the right lower quadrant and left lower quadrant, 21:40 Back: CVA tenderness, is absent, 21:40 Neuro: Orientation: to person, place \T\ time. Mentation: is normal, Motor: moves all fours, strength is normal, Gait: is steady, at a normal pace, without difficulty, Vital Signs: 21:15 BP 124 / 87; Pulse 75; Resp 12; Temp 97.2; Pulse Ox 98% on R/A; Weight 86.18 kg; Height br2 5 ft. 4 in. ; Pain 8/10; 22:00 BP 136 / 89; Pulse 76; Resp 16; Pulse Ox 99% ; me1 22:52 BP 131 / 86; Pulse 80; Resp 21; Pulse Ox 99% ; me1 23:47 BP 129 / 81; Pulse 79; Resp 16; Pulse Ox 100% ; me1 0208 00:30 BP 111 / 73; Pulse 96; Resp 18; Pulse Ox 100% ; br2 05/23 21:15 Body Mass Index 32.61 (86.18 kg, 162.56 cm) br2 05/23 21:15 Pain Scale: Adult br2 MDM: 05/23 21:22 Medical Screening Exam initiated cp 22:00 Differential diagnosis: cardiac arrhythmia, generalized weakness, hypovolemia, cp idiopathic dizziness, , anemia. 05/24 00:31 Data reviewed: vital signs, nurses notes, lab test result(s), EKG, radiologic studies, cp plain films, ultrasound, and as a result, I will discharge patient. 00:31 Independent interpretation of the following test(s) in the Emergency Department EKG: cp See my EKG interpretation above. Care significantly affected by the following chronic conditions: Hypertension. Counseling: I had a detailed discussion with the patient and/or guardian regarding the historical points, exam findings, and any diagnostic results supporting the discharge/admit diagnosis, lab results, radiology results, the need for outpatient follow up, an OB/Gyne specialist, to return to the emergency department if symptoms worsen or persist or if there are any questions or concerns that arise at home. Response to treatment: the patient's symptoms have mildly improved after treatment, and as a result, I will discharge patient. 05/23 21:27 Order name: Basic Metabolic Panel; Complete Time: 22:33 cp 05/23 22:33 Interpretation: Normal except: CL 112. cp 05/23 21:27 Order name: CBC with Diff cp 05/23 22:34 Interpretation: Normal except: WBC 3.40; RBC 3.80; HGB 7.9; HCT 26.8; MCV 70.7; MCH cp 20.8; MCHC 29.5; RDW 20.4; BASO% 1.6. 05/23 21:27 Order name: LFT's; Complete Time: 22:33 cp 05/23 22:34 Interpretation: Normal except: GLOB 3.7; A/G 1.0. cp 05/23 21:28 Order name: Magnesium; Complete Time: 22:33 cp 05/23 21:28 Order name: PT-INR; Complete Time: 22:33 cp 05/23 21:28 Order name: Troponin HS; Complete Time: 22:33 cp 05/23 21:28 Order name: Ptt, Activated; Complete Time: 22:33 cp 05/23 21: Order name: Test, Serum; Complete Time: 22:10 cp 05/23 22:10 Interpretation: Reviewed. cp 05/23 21:28 Order name: Type And Screen; Complete Time: 00:23 cp 05/23 21:28 Order name: XRAY Chest (1 view); Complete Time: 22:33 cp 05/23 22:35 Order name: US Transvaginal Study (Probe) cp 05/23 21:28 Order name: Cardiac monitoring; Complete Time: 21:55 cp 05/23 21:28 Order name: EKG - Nurse/Tech; Complete Time: 21:35 cp 05/23 21:28 Order name: IV Saline Lock; Complete Time: 21:35 cp 05/23 21:28 Order name: Labs collected and sent; Complete Time: 21:35 cp 05/23 21:28 Order name: O2 Per Protocol; Complete Time: 21:35 cp 05/23 21:28 Order name: O2 Sat Monitoring; Complete Time: 21:35 cp EC/07 21:38 Rate is 54 beats/min. Rhythm is regular. DE interval is normal. QRS interval is cp prolonged at 108 msec. QT interval is normal. T waves are Inverted in lead aVR. Interpreted by me. Reviewed by me. Administered Medications: 22:08 Drug: NS 0.9% IV 500 ml 500 ml IV at 1 bolus once; to be given as a bolus over 30 me1 minutes Volume: 500 ml; Route: IV; Rate: 1 bolus; Site: right antecubital; 23:47 Follow up: Response: No adverse reaction; IV Status: Completed infusion; IV Intake: me1 500ml 22:08 Drug: Acetaminophen PO 1000 mg PO once Route: PO; me1 22:51 Follow up: Response: No adverse reaction; Pain is decreased me1 Disposition: 05/24 00:58 Co-signature as Attending Physician, Peterson Lambert MD I reviewed the patient's care rt provided by the Advanced Practice Provider and agree with the diagnosis and treatment plan. Disposition Summary: 05/24/24 00:32 Discharge Ordered Notes: Problem: new cp Symptoms: have improved cp Condition: Stable cp Location: [employer](05/24/24 00:32) cp Diagnosis - Dizziness and giddiness cp - Iron deficiency anemia secondary to blood loss (chronic) cp Followup: cp - With: Private Physician - When: 2 - 3 days - Reason: Recheck today's complaints Discharge Instructions: - Discharge Summary Sheet cp - Iron Deficiency Anemia, Adult cp - Anemia cp - Iron-Rich Diet cp - Dizziness cp Forms: - Medication Reconciliation Form cp - Antibiotic Education cp - Prescription Opioid Use cp - Patient Portal Instructions cp - Leadership Thank You Letter cp Signatures: Dispatcher [employer] EDAZ Shreyas Schmitt PA PA cp Peterson Lambert MD MD rt Jhoana Colon RN RN me1 Bridgette Mukherjee RN RN br2 Corrections: (The following items were deleted from the chart) 05/23 21:28 21:28 Chest Single View+RAD.RAD.BRZ ordered. EDMS EDMS 21:29 21:29 TYPE AND SCREEN+BB.LAB.BRZ ordered. EDAZ EDMS 05/24 00:32 00:32 Home cp cp 05/25 00:08 21:35 Constitutional: Negative for body aches, chills, fever, poor PO intake, cp cp 05/25 00: 0208 21:35 Cardiovascular: Positive for chest pain, Negative for edema, cp cp 05/25 00:08 21:35 Respiratory: Negative for cough, wheezing, cp cp 05/25 00:22 0208 21:35 Abdomen/GI: Negative for vomiting, diarrhea, constipation, cp cp 05/25 00: 0208 21:35 Eyes: Negative for injury, pain, redness, and discharge, cp cp 05/25 00:22 0208 21:35 ENT: Negative for drainage from ear(s), ear pain, sore throat, difficulty cp swallowing, difficulty handling secretions, cp 05/25 00: 0208 21:35 Back: Negative for pain at rest, pain with movement, cp cp 05/25 00:08 21:35 Neuro: Positive for dizziness, Negative for altered mental status, syncope, cp near syncope, cp 05/25 00:08 21:35 All other systems are negative, cp cp
--- NOTE | 2024-05-24 00:33 | ER ---
Nurse's Notes [facility] Name: Joyce Mera Age: 38 yrs Sex: Female : 1985 Arrival Date: 05/23/2024 Time: 21:11 Bed 10 Private MD: Diagnosis: Dizziness and giddiness;Iron deficiency anemia secondary to blood loss (chronic) Presentation: 05/23 21:15 Chief complaint: Patient states: PT STATES SHE HAS HAD A HEAVY MENSTRUAL CYCLE AND IS br2 HAVING CP, DIZZY AND SOB. PT HAS A HX OF HEAVY CYCLES AND HAS NEEDED BLOOD TRANSFUSIONS IN THE PAST. Coronavirus screen: Client denies travel out of the [place] in the last 14 days. Ebola Screen: Patient denies exposure to infectious person. Initial Sepsis Screen: Does the patient meet any 2 criteria? No. Patient's initial sepsis screen is negative. Does the patient have a suspected source of infection? No. Patient's initial sepsis screen is negative. Risk Assessment: Do you want to hurt yourself or someone else? Patient reports no desire to harm self or others. Onset of symptoms was May 21, 2024. 21:15 Method Of Arrival: Law Enforcement: [place] [employer] br2 21:15 Acuity: ALICIA 3 br2 Historical: - Allergies: 22:18 No Known Allergies; br2 - PMHx: 22:18 Anemia; Hypertensive disorder; br2 - Immunization history:: Adult Immunizations not up to date. - Infectious Disease History:: Denies. - Social history:: Smoking status: Reported history of juuling and/or vaping. Patient/guardian denies using alcohol, street drugs. Screenin:30 [facility] ED Fall Risk Assessment (Adult) History of falling in the last 3 months, me1 including since admission No falls in past 3 months (0 pts) Confusion or Disorientation No (0 pts) Intoxicated or Sedated No (0 pts) Impaired Gait No (0 pts) Mobility Assist Device Used No (0 pt) Altered Elimination No (0 pt) Score/Fall Risk Level 0 - 2 = Low Risk Maintained a safe environment, Provided non-skid footwear, Hourly rounding (assess needs \T\ fall precautionary measures) done. Abuse screen: Denies threats or abuse. Nutritional screening: No deficits noted. Tuberculosis screening: No symptoms or risk factors identified. Assessment: 21:30 General: Appears in no apparent distress. well developed, well nourished, Behavior is me1 calm, cooperative, appropriate for age, Reports Headache, dizziness. States she is anemic due to heavy periods and is currently on her period. Hx blood transfusions. Pain: Complains of pain in head Pain does not radiate. Pain currently is 7 out of 10 on a pain scale. Quality of pain is described as aching, Pain began gradually, Is continuous. Neuro: Level of Consciousness is awake, alert, obeys commands, Oriented to person, place, time, situation, Appropriate for age. Neuro: Reports dizziness, headache. Cardiovascular: Patient's skin is warm and dry. Respiratory: Airway is patent Respiratory effort is even, unlabored, Respiratory pattern is regular, symmetrical. GI: No signs and/or symptoms were reported involving the gastrointestinal system. : Reports vaginal bleeding that is heavy flow. EENT: No signs and/or symptoms were reported regarding the EENT system. Derm: Skin is intact, is healthy with good turgor, Skin is pale. Musculoskeletal: No signs and/or symptoms reported regarding the musculoskeletal system. 05/24 00:30 Reassessment: Patient and/or family updated on plan of care and expected duration. Pain br2 level reassessed. Patient is alert, oriented x 3, equal unlabored respirations, skin warm/dry/pink. Patient states feeling better. Vital Signs: 05/23 21:15 BP 124 / 87; Pulse 75; Resp 12; Temp 97.2; Pulse Ox 98% on R/A; Weight 86.18 kg; Height br2 5 ft. 4 in. ; Pain 8/10; 22:00 BP 136 / 89; Pulse 76; Resp 16; Pulse Ox 99% ; me1 22:52 BP 131 / 86; Pulse 80; Resp 21; Pulse Ox 99% ; me1 23:47 BP 129 / 81; Pulse 79; Resp 16; Pulse Ox 100% ; me1 05/24 00:30 BP 111 / 73; Pulse 96; Resp 18; Pulse Ox 100% ; br2 05/23 21:15 Body Mass Index 32.61 (86.18 kg, 162.56 cm) br2 05/23 21:15 Pain Scale: Adult br2 ED Course: 05/23 21:13 Patient arrived in ED. jj6 21:14 Shreyas Schmitt PA is PHCP. cp 21:14 Peterson Lambert MD is Attending Physician. cp 21:21 Jhoana Colon, REJI is Primary Nurse. me1 21:30 No provider procedures requiring assistance completed. me1 21:30 Patient has correct armband on for positive identification. Bed in low position. Call me1 light in reach. Side rails up X2. Provided Education on: POC. Verbalized understanding.. Client placed on continuous cardiac and pulse oximetry monitoring. NIBP monitoring applied. property assessment monitor on. Pulse ox on. NIBP on. 21:35 EKG done, by ED staff, reviewed by Shreyas APARICIO. me1 21:55 Initial lab(s) drawn, by me, sent to lab. T\T\S collected, blood band applied to patient. me1 Inserted saline lock: 22 gauge in right antecubital area, using aseptic technique. 21:55 Type And Screen Sent. me1 21:55 Test, Serum Sent. me1 21:55 Ptt, Activated Sent. me1 21:55 CBC with Diff Sent. me1 21:55 Basic Metabolic Panel Sent. me1 21:55 LFT's Sent. me1 21:55 Magnesium Sent. me1 21:55 PT-INR Sent. me1 21:55 Troponin HS Sent. me1 22:04 XRAY Chest (1 view) In Process Unspecified. EDMS 22:18 Triage completed. br2 23:06 US Transvaginal Study (Probe) In Process Unspecified. EDMS 02/08 00:43 IV discontinued, intact, bleeding controlled, No redness/swelling at site. Pressure br2 dressing applied. Administered Medications: 0207 22:08 Drug: NS 0.9% IV 500 ml 500 ml IV at 1 bolus once; to be given as a bolus over 30 me1 minutes Volume: 500 ml; Route: IV; Rate: 1 bolus; Site: right antecubital; 23:47 Follow up: Response: No adverse reaction; IV Status: Completed infusion; IV Intake: me1 500ml 22:08 Drug: Acetaminophen PO 1000 mg PO once Route: PO; me1 22:51 Follow up: Response: No adverse reaction; Pain is decreased me1 Medication: 21:30 VIS not applicable for this client. me1 Intake: 23:47 IV: 500ml; Total: 500ml. me1 Outcome: 05/24 00:32 Discharge ordered by . rajinder 00:43 Discharged to Law Enforcement br2 00:43 Condition: stable 00:43 Discharge instructions given to patient, Instructed on discharge instructions, follow up and referral plans. Demonstrated understanding of instructions, follow-up care, 00:49 Patient left the ED. br2 Signatures: Dispatcher [employer] EDMS Shreyas Schmitt PA PA cp Jeffries, Jennifer jj6 Jhoana Colon RN RN me1 Bridgette Mukherjee RN RN br2
--- NOTE | 2024-05-24 00:47 | RAD REPORT ---
EXAM DESCRIPTION: Transvaginal Study Probe CLINICAL HISTORY: 38 years Female, VAGINAL BLEEDING COMPARISON: Pelvic ultrasound report 04/16/2023, and CT of the abdomen report 05/26/2022, images are currently unava ilable. TECHNIQUE: Grayscale, color-flow, and spectral Doppler imaging was obtained. Transabdominal and tra nsvaginal imaging was performed. FINDINGS: Uterus: 11.5 x 6.6 x 7.4 cm. Heterogeneous myometrial echotexture. Heterogeneous 3.4 x 3.1 x 3.2 cm intramural uterine fundal/body lesion, and heterogeneous 2.7 x 1.7 x 2.2 cm intramural lower uterine segment lesion, both with flow on color Doppler imaging, likely leiomyomas. Small anechoic ce rvical nabothian cyst. Endometrial stripe: 14.1 mm heterogeneous endometrial stripe. Ovaries not visualized, which may be obscured due to overlying bowel gas. No visualized adnexal mass or cyst. No free pelvic fluid. IMPRESSION: 1. Intramural uterine leiomyomas. 2. Heterogeneous 14.1 mm endometrial stripe, which can be seen with secretory endometrium. Please cor relate with phase of the menstrual cycle. 3. Nonvisualization of the ovaries. Electronically signed by: Asael Oro MD 05/24/2024 12:15 AM [facility] Due to temporary technical issues with the [employer]ACS/[employer] scribe reporting system, reports are being sign ed by the in-house radiologist without review as a courtesy to ensure prompt reporting the interpreting rad iologist is fully responsible for the content of the report. Transcribed Date/Time: 05/24/2024 12:46 AM
[2024-05-24 01:19] VITALS: TEMP 97.2
[2024-05-24 01:32] VITALS: O2SAT 100
[2024-05-24 01:33] VITALS: BP 111/73
[2024-05-24 03:20] LABS: Anisocytosis 1+; Blood Morphology Comment NOTED (NOT SEEN); Hypochromasia 1+; Platelet Estimate ADEQ; Polychromasia 1+; White Blood Cell Scan OK (OK)
--- NOTE | 2024-05-27 12:52 | EKG ---
Test Date: 2024-05-23 Test Time: 21:32:37 Assistant Associate Full Professor: MEASUREMENT RESULTS: Intervals: Rate: 54 VA: 142 QRSD: 108 QT: 440 QTc: 417 [place]: P: 53 VA: 142 QRS: 68 T: 63 INTERPRETIVE STATEMENTS: Sinus bradycardia Otherwise normal ECG Compared to ECG 04/26/2024 23:45:54 Sinus rhythm no longer present Incomplete right bundle-branch block no longer present Electronically Signed On 05-27-24 12:45:32 MAIL SERVICE COORDINATOR by Lobito Mathew
== END 2024-05-24 00:49 ==
LOC: ER 21:11
DX: D50.0 Iron deficiency anemia secondary to blood loss (chronic) (principal); I10 Essential (primary) hypertension
CPT/HCPCS: 96361; 93005; 85025; 80048; 36415; 86900; 83735; 86850; 84703; 85610; 86901; 80076; 85730; 84484; 71045; 76830; 96360; 99285; J7030

== ENCOUNTER 2024-07-01 21:30 | Emergency (ER) | payer BC ==
--- NOTE | 2024-07-02 00:39 | ER ---
Nurse's Notes [facility] Name: Joyce Mera Age: 38 yrs Sex: Female : 1985 Arrival Date: 07/01/2024 Time: 21:30 Bed DX3 Private MD: Diagnosis: Presentation: 07/01 22:04 Chief complaint: Patient states: c/o of shortness of breath. Feeling tired and weak. vc1 History of anemia. Coronavirus screen: Vaccine status: Patient reports being unvaccinated. Ebola Screen: Patient negative for fever greater than or equal to 101.5 degrees Fahrenheit, and additional compatible Ebola Virus Disease symptoms. No acute neurological deficit is noted. Initial Sepsis Screen: Does the patient meet any 2 criteria? No. Patient's initial sepsis screen is negative. Risk Assessment: Do you want to hurt yourself or someone else? Patient reports no desire to harm self or others. Onset of symptoms was June 28, 2024. 22:04 Method Of Arrival: Wheelchair vc1 22:04 Acuity: ALICIA 3 vc1 22:51 Note pt called from lobby. no response. provider notified. lg3 23:47 Note pt called from lobby. no response. provider notified. lg3 07/02 00:21 Note pt called from lobby. no response. provider notified. lg3 Historical: - Allergies: 07/01 22:06 No Known Allergies; vc1 - Home Meds: 22:06 amlodipine 10 mg oral tablet daily [Active]; gabapentin 600 mg oral tablet 3 times per vc1 day [Active]; - PMHx: 22:06 Anemia; Hypertensive disorder; vc1 - Immunization history:: Adult Immunizations up to date. - Infectious Disease History:: Denies. - Social history:: Smoking status: Reported history of juuling and/or vaping. Vital Signs: 22:04 BP 140 / 92; Pulse 88; Resp 18; Temp 98; Pulse Ox 100% ; Weight 88.45 kg; Height 5 ft. vc1 4 in. ; 22:04 Body Mass Index 33.47 (88.45 kg, 162.56 cm) vc1 ED Course: 21:45 Patient arrived in ED. jj6 21:47 Marguerite Baeza PA-C is PHCP. sb4 21:47 Dieter Jimenez MD is Attending Physician. sb4 22:06 Triage completed. vc1 22:10 Arm band placed on right wrist. vc1 Administered Medications: No medications were administered Outcome: 07/02 00:38 Patient left the ED. lg3 Signatures: Kristin Hart RN RN lg3 Deyanira Mendozaj6 Nimisha Waterman RN RN vc1 Marguerite Baeza, RASHI PACher sb4
[2024-07-02 08:52] VITALS: BP 140/92; TEMP 98; O2SAT 100
== END 2024-07-02 00:38 | disposition left against medical advice (07) ==
LOC: ER 21:30
DX: Z02.9 Encounter for administrative examinations, unspecified (principal)

== ENCOUNTER 2024-07-09 18:27 | Emergency (ER) | payer BC ==
[2024-07-09 19:25] LABS: Absolute Lymphocytes (CBC) 0.8 K/uL (0.7-4.9); Absolute Monocytes 0.3 K/uL (0.1-1.3); Absolute Neutrophil 2.1 K/uL (1.8-8.0); Basophils % 1.3 % (0-1.3); Eosinophils % 0.5 % (0-4.4); Hematocrit 27.1 % (36.0-45.0); Lymphocytes % 25.5 % (15.3-44.8); MCH 20.9 pg (27.0-35.0); MCV 69.6 fL (80-100); MPV 7.2 fL (7.6-11.3); Monocytes % 8.1 % (3.3-12.3); Neutrophils % 64.6 % (41.7-73.7); Nucleated Red Blood Cells % 0.2 % (0-0); Platelets 197 thou/uL (152-406); Red Cell Distribution Width 22.5 % (12.1-15.2)
[2024-07-09 19:31] LABS: Hemoglobin 8.5 g/dL (12.0-15.0)
[2024-07-09 19:33] LABS: Platelet Estimate ADEQ; White Blood Cell Scan OK (OK)
[2024-07-09 19:34] LABS: Anisocytosis 2+; Blood Morphology Comment NOTED (NOT SEEN); Hypochromasia 1+; Microcytosis 1+
[2024-07-09 19:40] LABS: ALT/SGPT 21 U/L (13-56); AST/SGOT 17 U/L (15-37); Albumin 4.3 g/dL (3.4-5.0); Alkaline Phosphatase 96 U/L (45-117); Anion Gap 10.3 mEq/L (5.0-15.0); BUN Blood Urea Nitrogen 18 mg/dL (7-18); Bicarbonate 25 mEq/L (21-32); Bilirubin Direct 0.3 mg/dL (0-0.2); Bilirubin Indirect, Calculated 0.9 mg/dL (0.2-0.8); Bilirubin Total 1.2 mg/dL (0.2-1.0); Globulin 4.4 g/dL (2.3-3.5); Glomerular Filtration Rate 66 ml/min (=/>90); Glucose Level 108 mg/dL (74-106); Magnesium 2.6 mg/dL (1.6-2.4); PTT, Activated Partial Thromb 24.4 SECONDS (27.2-37.4); Potassium 3.3 mEq/L (3.5-5.1); Protein, Total 8.7 g/dL (6.4-8.2); Protime INR 0.96; Sodium Level 135 mEq/L (136-145)
[2024-07-09 19:41] LABS: Troponin High Sensitivity < 3.0 pg/mL (<58.9)
[2024-07-09] MEDS ORDERED: ONDANSETRON 4 MG/2 ML VIAL ONE ×2 (19:48→21:17)
--- NOTE | 2024-07-09 19:57 | RAD REPORT ---
Procedure: Chest Single View HISTORY: Chest pain COMPARISON: May 2024 FINDINGS: The lungs appear clear of acute infiltrate. No significant pleural effusion noted. The heart is normal size. IMPRESSION: No acute abnormality is displayed.
[2024-07-09 20:01] LABS: Specific Gravity 1.024 (1.005-1.030)
[2024-07-09 20:02] LABS: Specific Gravity 1.024 (1.005-1.030); Urine Bacteria <20 /HPF (<20); Urine Bilirubin NEGATIVE (Negative); Urine Blood Negative (Negative); Urine Clarity Turbid (Clear); Urine Color Light-Yellow (Yellow); Urine Culture Reflex Order NOT NEEDED; Urine Glucose NEGATIVE (Negative); Urine Ketones NEGATIVE (Negative); Urine Microscopic Reflex YN ORDER UMIC; Urine Mucus Slight /HPF (None Seen); Urine Nitrite NEGATIVE (Negative); Urine Protein TRACE (Negative); Urine RBC <5 /HPF (None Seen); Urine Urobilinogen Normal (Normal); Urine WBC <5 /HPF (<5); Urine pH 6.5 (5.0-7.0)
[2024-07-09] MEDS ORDERED: NA CHLORIDE 0.9% 1,000 ML ONE (20:10)
[2024-07-09] MEDS ORDERED: KETOROLAC 30 MG/ML INJ ONE (21:17)
--- NOTE | 2024-07-09 22:06 | ER ---
Nurse's Notes [facility] Name: Joyce Mera Age: 38 yrs Sex: Female : 1985 Arrival Date: 07/09/2024 Time: 18:27 Bed 3 Private MD: Diagnosis: Chest pain, unspecified Presentation: 07/09 18:47 Chief complaint: Patient states: chest pain , SOB, dizziness since last night. iw Coronavirus screen: At this time, the client does not indicate any symptoms associated with coronavirus-19. Ebola Screen: No symptoms or risks identified at this time. Initial Sepsis Screen: Does the patient meet any 2 criteria? No. Patient's initial sepsis screen is negative. Does the patient have a suspected source of infection? No. Patient's initial sepsis screen is negative. Risk Assessment: Do you want to hurt yourself or someone else? Patient reports no desire to harm self or others. Onset of symptoms was July 09, 2024. 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 - Infectious Disease History:: Denies. - Social history:: Smoking status: Reported history of juuling and/or vaping. Screenin:05 [facility] ED Fall Risk Assessment (Adult) History of falling in the last 3 months, al5 including since admission No falls in past 3 months (0 pts) Confusion or Disorientation No (0 pts) Intoxicated or Sedated No (0 pts) Impaired Gait No (0 pts) Mobility Assist Device Used No (0 pt) Altered Elimination No (0 pt) Score/Fall Risk Level 0 - 2 = Low Risk Oriented to surroundings, Maintained a safe environment, Hourly rounding (assess needs \T\ fall precautionary measures) done. Abuse screen: Denies threats or abuse. Denies injuries from another. Nutritional screening: No deficits noted. Tuberculosis screening: No symptoms or risk factors identified. Assessment: 20:06 General: Appears in no apparent distress. uncomfortable, Behavior is calm, cooperative. al5 Pain: Complains of pain in chest Pain does not radiate. Pain began 1 day ago. Neuro: Level of Consciousness is awake, alert, obeys commands, Oriented to person, place, time, situation. Cardiovascular: Capillary refill < 3 seconds Patient's skin is warm and dry. Rhythm is sinus rhythm. Respiratory: Airway is patent Respiratory effort is even, unlabored, Respiratory pattern is regular, symmetrical. GI: Abdomen is flat, non-distended, Reports nausea. : No signs and/or symptoms were reported regarding the genitourinary system. EENT: No signs and/or symptoms were reported regarding the EENT system. Derm: Skin is intact, is healthy with good turgor, Skin is pink, warm \T\ dry. normal. Musculoskeletal: No signs and/or symptoms reported regarding the musculoskeletal system. 21:18 Reassessment: Patient appears in no apparent distress at this time. Patient and/or al5 family updated on plan of care and expected duration. Pain level reassessed. Patient is alert, oriented x 3, equal unlabored respirations, skin warm/dry/pink. chest pain relieved. nausea is not 100% gone but is better than initially. c/o headache, provider notified and medication ordered. 22:15 Reassessment: Patient appears in no apparent distress at this time. Patient and/or al5 family updated on plan of care and expected duration. Pain level reassessed. Patient is alert, oriented x 3, equal unlabored respirations, skin warm/dry/pink. Patient states feeling better. Patient states symptoms have improved. Vital Signs: 18:47 BP 138 / 99; Pulse 90; Resp 16; Temp 98.4; Pulse Ox 100% on R/A; iw 18:49 Weight 86.18 kg; Height 5 ft. 4 in. ; iw 19:57 BP 178 / 107 LA Supine (auto/reg); Pulse 67; Resp 16; Pulse Ox 100% ; cp4 19:59 BP 168 / 110 LA Sitting (auto/reg); Pulse 73; Resp 16; Pulse Ox 100% ; cp4 19:59 BP 146 / 103 LA Standing (auto/reg); Pulse 79; Resp 16; Pulse Ox 100% ; cp4 20:30 BP 164 / 101; Pulse 77; Resp 18; Pulse Ox 100% ; al5 21:00 BP 156 / 94; Pulse 75; Resp 17; Pulse Ox 100% ; al5 21:30 BP 153 / 93; Pulse 73; Resp 18; Pulse Ox 100% ; al5 22:17 BP 160 / 100; Pulse 76; Resp 17; Pulse Ox 100% ; al5 18:49 Body Mass Index 32.61 (86.18 kg, 162.56 cm) iw ED Course: 18:27 Patient arrived in ED. mr 18:28 Gissel Villela, JACQUELINE [facility]. kb 18:28 Gonzalo Lazo MD is Attending Physician. kb 18:48 Triage completed. iw 18:49 Arm band placed on. iw 19:16 Type And Screen Sent. kmf 19:16 Initial lab(s) drawn, by ED staff, sent to lab. Inserted saline lock: 20 gauge in right kmf antecubital area, using aseptic technique. 19:56 Chest Single View XRAY In Process Unspecified. EDMS 19:58 Milvia Hines MD is Attending Physician. kb 20:05 Roselia Jeffery RN is Primary Nurse. al5 20:06 Patient has correct armband on for positive identification. Bed in low position. Call al5 light in reach. Side rails up X 1. Provided Education on: wait time. Client placed on continuous cardiac and pulse oximetry monitoring. NIBP monitoring applied. site monitor on. 20:06 No provider procedures requiring assistance completed. Patient maintains SpO2 al5 saturation greater than 95% on room air. 22:21 IV discontinued, intact, bleeding controlled, No redness/swelling at site. Pressure al5 dressing applied. Administered Medications: 20:03 Drug: Ondansetron IVP 4 mg IVP once; over 2 minutes Route: IVP; Site: right antecubital;cp4 22:15 Follow up: Response: No adverse reaction; Nausea is decreased al5 20:13 Drug: NS 0.9% IV 1000 ml IV at 1000 ml once; to be given as a bolus over 60 minutes cp4 Route: IV; Rate: 1000 ml; Site: right antecubital; 22:21 Follow up: Response: No adverse reaction; IV Status: Completed infusion; IV Intake: al5 1000ml 21:22 Drug: Ondansetron IVP 4 mg IVP once; over 2 minutes Route: IVP; Site: right antecubital;al5 22:15 Follow up: Response: No adverse reaction; Nausea is decreased al5 21:22 Drug: Ketorolac IVP 15 mg IVP once Route: IVP; Site: right antecubital; al5 22:15 Follow up: Response: No adverse reaction; Pain is decreased al5 Medication: 20:06 VIS not applicable for this client. al5 Intake: 22:21 IV: 1000ml; Total: 1000ml. al5 Outcome: 22:05 Discharge ordered by MD. walter 22:21 Discharged to home ambulatory, al5 22:21 Condition: good 22:21 Discharge instructions given to patient, Instructed on discharge instructions, follow up and referral plans. Demonstrated understanding of instructions, follow-up care, 22:21 Patient left the ED. al5 Signatures: Dispatcher [employer] EDMS Gissel Villela, ZAHRA-C CARDIAC CATH LAB MANAGER-CkDalila Encinas, Reg Reg mr Amaya Hines, RN Leti Gomez 4 Lisette Ron [facility] Roselia Jeffery RN RN al5 Corrections: (The following items were deleted from the chart) 21:25 20:06 GI: No signs and/or symptoms were reported involving the gastrointestinal system. al5 al5
--- NOTE | 2024-07-09 22:06 | EDPHYS ---
Physician Documentation [facility] Name: Joyce Mera Age: 38 yrs Sex: Female : 1985 Arrival Date: 07/09/2024 Time: 18:27 Bed 3 Private MD: ED Physician Milvia Hines HPI: 07/09 18:50 This 38 yrs old Female presents to ER via Ambulatory with complaints of Chest Pain, kb Shortness Of Breath. 18:50 Pt is a 38 year old female who presents for chest pain and palpitations for 4.5 hours. kb States she has had shortness of breath as well. Also reports headache and dizziness that started last night. Reports nausea, vomiting. Denies diarrhea, cough, congestion. . 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 - Infectious Disease History:: Denies. - Social history:: Smoking status: Reported history of juuling and/or vaping. ROS: 18:51 Constitutional: As per HPI kb Exam: 20:09 Constitutional: This is a well developed, well nourished patient who is awake, alert, kb and in no acute distress. Head/Face: Normocephalic, atraumatic. Eyes: Pupils equal round and reactive to light, extra-ocular motions intact. Lids and lashes normal. Conjunctiva and sclera are non-icteric and not injected. Cornea within normal limits. Periorbital areas with no swelling, redness, or edema. ENT: Moist Mucous membranes Cardiovascular: Regular rate Respiratory: Respirations even and unlabored. No increased work of breathing. Talking in full sentences Abdomen/GI: Soft, non-tender. No distention Skin: Warm, dry with normal turgor. Normal color. MS/ Extremity: Pulses equal, no cyanosis. Neurovascular intact. Full, normal range of motion. Neuro: Awake and alert, GCS 15, oriented to person, place, time, and situation. 20:09 ECG was reviewed by the Attending Physician. Vital Signs: 18:47 BP 138 / 99; Pulse 90; Resp 16; Temp 98.4; Pulse Ox 100% on R/A; iw 18:49 Weight 86.18 kg; Height 5 ft. 4 in. ; iw 19:57 BP 178 / 107 LA Supine (auto/reg); Pulse 67; Resp 16; Pulse Ox 100% ; cp4 19:59 BP 168 / 110 LA Sitting (auto/reg); Pulse 73; Resp 16; Pulse Ox 100% ; cp4 19:59 BP 146 / 103 LA Standing (auto/reg); Pulse 79; Resp 16; Pulse Ox 100% ; cp4 20:30 BP 164 / 101; Pulse 77; Resp 18; Pulse Ox 100% ; al5 21:00 BP 156 / 94; Pulse 75; Resp 17; Pulse Ox 100% ; al5 21:30 BP 153 / 93; Pulse 73; Resp 18; Pulse Ox 100% ; al5 22:17 BP 160 / 100; Pulse 76; Resp 17; Pulse Ox 100% ; al5 18:49 Body Mass Index 32.61 (86.18 kg, 162.56 cm) iw MDM: 18:28 Medical Screening Exam initiated kb 22:04 Data reviewed: vital signs, nurses notes. kb 22:04 Differential diagnosis: PE, acute MT, arrhythmia, anemia, anxiety. Counseling: I had a kb detailed discussion with the patient and/or guardian regarding the historical points, exam findings, and any diagnostic results supporting the discharge/admit diagnosis, lab results, radiology results, the need for outpatient follow up, a family practitioner, to return to the emergency department if symptoms worsen or persist or if there are any questions or concerns that arise at home. ED course: Symptoms improved after treatment. 07/09 18:52 Order name: Basic Metabolic Panel; Complete Time: 19:48 kb 07/09 18:52 Order name: CBC with Diff; Complete Time: 19:40 kb 07/09 18:52 Order name: Hepatic Function; Complete Time: 19:48 kb 07/09 18:52 Order name: Magnesium; Complete Time: 19:48 kb 07/09 18:52 Order name: Test, Urine; Complete Time: 20:02 kb 07/09 18:52 Order name: Protime (+inr); Complete Time: 19:40 kb 07/09 18:52 Order name: Ptt, Activated; Complete Time: 19:40 kb 07/09 18:52 Order name: Troponin High Sensitivity; Complete Time: 19:48 kb 07/09 18:52 Order name: Urinalysis w/ reflexes; Complete Time: 20:03 kb 07/09 18:54 Order name: Type And Screen; Complete Time: 19:57 kb 07/09 19:34 Order name: CBC Smear Scan; Complete Time: 19:40 EDMS 07/09 19:56 Order name: D-Dimer; Complete Time: 20:09 kb 07/09 21:39 Order name: Troponin High Sensitivity; Complete Time: 22:04 cp4 07/09 18:52 Order name: Chest Single View XRAY; Complete Time: 20:02 kb 07/09 18:52 Order name: EKG; Complete Time: 18:53 kb 07/09 18:52 Order name: Cardiac monitoring; Complete Time: 20:05 kb 07/09 18:52 Order name: EKG - Nurse/Tech; Complete Time: 19:08 kb 07/09 18:52 Order name: IV Saline Lock; Complete Time: 19:16 kb 07/09 18:52 Order name: Labs collected and sent; Complete Time: 19:16 kb 07/09 18:52 Order name: NPO; Complete Time: 19:16 kb 07/09 18:52 Order name: O2 Per Protocol; Complete Time: 19:16 kb 07/09 18:52 Order name: O2 Sat Monitoring; Complete Time: 19:16 kb 07/09 18:52 Order name: Orthostatics; Complete Time: 20:04 kb EC:09 Rate is 61 beats/min. Rhythm is regular. QRS [place] is Normal. PA interval is normal at kb 132 msec. QRS interval is normal at 110 msec. QT interval is normal at 440 msec. Administered Medications: 20:03 Drug: Ondansetron IVP 4 mg IVP once; over 2 minutes Route: IVP; Site: right antecubital;cp4 22:15 Follow up: Response: No adverse reaction; Nausea is decreased al5 20:13 Drug: NS 0.9% IV 1000 ml IV at 1000 ml once; to be given as a bolus over 60 minutes cp4 Route: IV; Rate: 1000 ml; Site: right antecubital; 22:21 Follow up: Response: No adverse reaction; IV Status: Completed infusion; IV Intake: al5 1000ml 21:22 Drug: Ondansetron IVP 4 mg IVP once; over 2 minutes Route: IVP; Site: right antecubital;al5 22:15 Follow up: Response: No adverse reaction; Nausea is decreased al5 21:22 Drug: Ketorolac IVP 15 mg IVP once Route: IVP; Site: right antecubital; al5 22:15 Follow up: Response: No adverse reaction; Pain is decreased al5 Disposition Summary: 07/09/24 22:05 Discharge Ordered Notes: Location: Home kb Condition: Stable kb Diagnosis - Chest pain, unspecified kb Followup: kb - With: Emergency Department - When: As needed - Reason: Worsening of condition Followup: kb - With: Private Physician - When: 2 - 3 days - Reason: Recheck today's complaints, Continuance of care, Re-evaluation by your physician Discharge Instructions: - Discharge Summary Sheet kb - Nonspecific Chest Pain, Adult, [id number] kb Forms: - Work release form kb - Medication Reconciliation Form kb - Antibiotic Education kb - Prescription Opioid Use kb - Patient Portal Instructions kb - Leadership Thank You Letter kb Signatures: Dispatcher [employer] EDMS Gissel Villela, CAN LINE OPERATOR-C CAN LINE OPERATOR-Ckb Amaya Hines, RN Leti Gomez cp4 Roselia Jeffery RN RN al5 Corrections: (The following items were deleted from the chart) 18:53 18:53 BASIC METABOLIC PANEL+C.LAB.BRZ ordered. EDMS EDMS 18:53 18:53 CBC+H.LAB.BRZ ordered. EDMS EDMS 18:53 18:53 HEPATIC FUNCTION+C.LAB.BRZ ordered. EDMS EDMS 18:53 18:53 MAGNESIUM+C.LAB.BRZ ordered. EDMS EDMS 18:53 18:53 Test, Urine+UC.LAB.BRZ ordered. EDMS EDMS 18:53 18:53 PROTIME (+INR)+COAG.LAB.BRZ ordered. EDMS EDMS 18:53 18:53 PTT, ACTIVATED+COAG.LAB.BRZ ordered. EDMS EDMS 18:53 18:53 Troponin High Sensitivity+C.LAB.BRZ ordered. EDMS EDMS 18:53 18:53 Urinalysis+U.LAB.BRZ ordered. EDMS EDMS
[2024-07-09 23:15] VITALS: TEMP 98.4; O2SAT 100
[2024-07-09 23:23] VITALS: BP 160/100
--- NOTE | 2024-07-10 08:35 | EKG ---
Test Date: 2024-07-09 Test Time: 19:56:03 Skirt Trimmer: ELVIE MEASUREMENT RESULTS: Intervals: Rate: 61 [place]: 132 QRSD: 110 QT: 438 QTc: 440 [place]: P: 56 [place]: 132 QRS: 54 T: 66 INTERPRETIVE STATEMENTS: Normal sinus rhythm Normal ECG Compared to ECG 05/23/2024 21:32:37 Sinus bradycardia no longer present Electronically Signed On 07-10-24 08:34:58 CDT by Lobito Mathew
== END 2024-07-09 22:21 | disposition home or self-care (01) ==
LOC: ER 18:27
DX: R07.9 Chest pain, unspecified (principal); R06.02 Shortness of breath; R51.9 Headache, unspecified; I10 Essential (primary) hypertension
CPT/HCPCS: 85025; 81001; 80048; 36415; 86900; 83735; 86850; 81025; 85610; 86901; 85379; 80076; 85730; 84484 ×2; 71045; J2405 ×2; J7030; 93005

== ENCOUNTER 2024-07-20 20:06 | Emergency (ER) | payer BC ==
--- NOTE | 2024-07-20 20:30 | ER ---
Nurse's Notes [facility] Name: Joyce Mera Age: 38 yrs Sex: Female : 1985 Arrival Date: 07/20/2024 Time: 20: Bed IW1 Private MD: Diagnosis: Assessment: 07/20 20:28 Reassessment: Reassessment: Checked lobby, restroom, and parking lot, pt not seen. jb4 ED Course: 20:08 Patient arrived in ED. jj6 20:10 Shreyas Schmitt PA is PHCP. cp 20:10 Shreyas Mera MD is Attending Physician. cp 20:11 Patient's name was called from ER lobby. No response. jb4 20:28 Patient's name was called from ER lobby. No response. jb4 Administered Medications: No medications were administered Outcome: 20:29 Eloped from waiting room, before seeing physician Time discovered patient gone: July jb4 2024 at 20:11 20:29 Patient left the ED. jb4 Signatures: Shreyas Schmitt PA PA Ermias Lucas, RN RN jb4 Deyanira Mendoza jj6 Corrections: (The following items were deleted from the chart) 20:29 20:17 Reassessment: Ward jbWard
== END 2024-07-20 20:29 | disposition left against medical advice (07) ==
LOC: ER 20:06
DX: Z02.9 Encounter for administrative examinations, unspecified (principal)

== ENCOUNTER 2024-08-20 09:50 | Emergency (ER) | payer BC, OTHER ==
[2024-08-20] MEDS ORDERED: NA CHLORIDE 0.9% 1,000 ML ONE (10:40)
[2024-08-20] MEDS ORDERED: ONDANSETRON 4 MG/2 ML VIAL ONE ×2 (10:40→20:39)
[2024-08-20] MEDS ORDERED: FAMOTIDINE 20 MG/2 ML VIAL IV ONE (10:40)
[2024-08-20 10:47] LABS: Absolute Basophils 0.1 K/uL (0-0.5); Absolute Lymphocytes (CBC) 0.5 K/uL (0.7-4.9); Absolute Monocytes 0.2 K/uL (0.1-1.3); Absolute Neutrophil 2.9 K/uL (1.8-8.0); Basophils % 1.8 % (0-1.3); Eosinophils % 0.7 % (0-4.4); Hematocrit 22.2 % (36.0-45.0); Hemoglobin 6.7 g/dL (12.0-15.0); Lymphocytes % 14.4 % (15.3-44.8); MCH 20.5 pg (27.0-35.0); MCHC 30.3 g/dL (32.0-36.0); MCV 67.5 fL (80-100); MPV 7.1 fL (7.6-11.3); Monocytes % 5.1 % (3.3-12.3); Nucleated Red Blood Cells % 0.2 % (0-0); Platelets 318 thou/uL (152-406); RBC Red Blood Cell Count 3.29 M/uL (3.86-4.86); Red Cell Distribution Width 22.2 % (12.1-15.2)
[2024-08-20 10:54] LABS: Specific Gravity > 1.030 (1.005-1.030)
[2024-08-20 11:04] LABS: Specific Gravity > 1.030 (1.005-1.030); Sqamous Epithelial <5 /HPF (None Seen); Urine Bacteria None Seen /HPF (<20); Urine Bilirubin NEGATIVE (Negative); Urine Blood 3+ (OVER) (Negative); Urine Clarity Extremely Turbid (Clear); Urine Color Brown (Yellow); Urine Culture Reflex Order NOT NEEDED; Urine Glucose NEGATIVE (Negative); Urine Ketones NEGATIVE (Negative); Urine Microscopic Reflex YN ORDER UMIC; Urine Nitrite NEGATIVE (Negative); Urine Protein 2+ (Negative); Urine RBC >50 /HPF (None Seen); Urine Urobilinogen Normal (Normal); Urine Yeast (Budding) Few /HPF (None Seen)
[2024-08-20 11:06] LABS: Anion Gap 11.4 mEq/L (5.0-15.0); Bilirubin Total 0.9 mg/dL (0.2-1.0); Globulin 3.9 g/dL (2.3-3.5); Potassium 3.4 mEq/L (3.5-5.1); Protein, Total 7.9 g/dL (6.4-8.2); Troponin High Sensitivity 3.4 pg/mL (<58.9)
--- NOTE | 2024-08-20 12:49 | ER ---
Nurse's Notes [facility] Name: Joyce Mera Age: 38 yrs Sex: Female : 1985 Arrival Date: 08/20/2024 Time: 09:50 Bed 2 Private MD: Diagnosis: Abnormal uterine and vaginal bleeding, unspecified;Other specified abnormal uterine and vaginal bleeding;UTI/ Urinary tract infection, site not specified Presentation: 08/20 10:22 Chief complaint: Patient states: started her period on Sunday, bleeding heavy. me1 Abdominal cramping 01/23, BERRY 01/23, fatigue, SOB and nausea. Coronavirus screen: At this time, the client does not indicate any symptoms associated with coronavirus-19. Ebola Screen: No symptoms or risks identified at this time. Initial Sepsis Screen: Does the patient meet any 2 criteria? No. Patient's initial sepsis screen is negative. Does the patient have a suspected source of infection? No. Patient's initial sepsis screen is negative. Risk Assessment: Do you want to hurt yourself or someone else? Patient reports no desire to harm self or others. Onset of symptoms was August 18, 2024. 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 - Infectious Disease History:: Denies. - Social history:: Smoking status: Patient denies any tobacco usage or history of. Screenin:22 [facility] ED Fall Risk Assessment (Adult) History of falling in the last 3 months, ph including since admission No falls in past 3 months (0 pts) Confusion or Disorientation No (0 pts) Intoxicated or Sedated No (0 pts) Impaired Gait No (0 pts) Mobility Assist Device Used No (0 pt) Altered Elimination No (0 pt) Score/Fall Risk Level 0 - 2 = Low Risk Oriented to surroundings, Maintained a safe environment, Hourly rounding (assess needs \\T\\ fall precautionary measures) done. Abuse screen: Denies threats or abuse. Denies injuries from another. Nutritional screening: No deficits noted. Tuberculosis screening: No symptoms or risk factors identified. Assessment: 11:05 General: Appears in no apparent distress. Behavior is calm, cooperative. Pain: ph Complains of pain in abdomen. Neuro: Level of Consciousness is awake, alert, obeys commands, Oriented to person, place, time, situation. Cardiovascular: Denies lightheadedness, nausea, shortness of breath, Capillary refill < 3 seconds in bilateral fingers Patient's skin is warm and dry. Rhythm is regular. Respiratory: Reports shortness of breath Airway is patent Respiratory effort is even, unlabored, Breath sounds are clear bilaterally. GI: Reports lower abdominal pain, nausea. : Reports vaginal bleeding that is heavy flow. Derm: Skin is pale. 13:01 Reassessment: D/C pending blood transfusion x 2 units. ph 15:16 Reassessment: Patient appears in no apparent distress at this time. Patient and/or jb4 family updated on plan of care and expected duration. Pain level reassessed. Patient is alert, oriented x 3, equal unlabored respirations, skin warm/dry/pink. Pt requesting pain medications, ER physician notified, no new orders at this time. 17:00 Reassessment: Received blood from blood bank. ph 19:32 General: Pt see resting comfortably in the stretcher, respirations are even and kd3 unlabored, skin is warm and dry, pt is alert and oriented x 4. second unit of blood started. see paper charting. . 20:40 Reassessment: Pt family came to this nurse reporting "something is not right, she needs jb4 help." Pt noted to be tossing in bed reporting extreme lower back pain different from prior pain, SOB, Chest tightness and extreme nausea. Blood noted to be nearly done, transfusion stopped, REJI Angeles to the bedside for assistance. Dr. Mera notified received verbal order to " Give her something for pain, do an EKG and get her home." EKG obtained, Charge nurse notified of situation, DR. Jimenez made aware of situation, received orders for IV fluids, IV benadryl, and oral tylenol. See MAR for dosages. 20:50 General: blood transfusion complete. vss. kd3 22:35 Reassessment: Patient appears in no apparent distress at this time. Patient and/or jb4 family updated on plan of care and expected duration. Pain level reassessed. Patient is alert, oriented x 3, equal unlabored respirations, skin warm/dry/pink. Pt reports pain is much better but still feels it slightly in left lower back. Patient states feeling better. Patient states symptoms have improved. Vital Signs: 10:22 BP 152 / 92; Pulse 88; Resp 18; Temp 98.3; Pulse Ox 100% ; Weight 86.18 kg; Height 5 me1 ft. 4 in. ; Pain 10/10; 11:05 BP 143 / 97; Pulse 84; Resp 18; Pulse Ox 100% on R/A; ph 15:00 BP 154 / 106; Pulse 90; Resp 22; Pulse Ox 100% on R/A; jb4 16:00 BP 152 / 98; Pulse 78; Resp 18; Pulse Ox 99% on R/A; ph 17:00 BP 159 / 98; Pulse 81; Resp 18; Pulse Ox 99% on R/A; ph 18:00 BP 173 / 102; Pulse 75; Resp 18; Pulse Ox 98% on R/A; ph 19:34 BP 145 / 91; Pulse 75; Resp 18; Pulse Ox 100% on R/A; kd3 20:49 BP 142 / 97; Pulse 82; Resp 18; Pulse Ox 100% on R/A; kd3 21:58 BP 124 / 82; Pulse 85; Resp 19; Pulse Ox 100% on R/A; kd3 10:22 Body Mass Index 32.61 (86.18 kg, 162.56 cm) me1 10:22 Pain Scale: Adult de1 ED Course: 09:53 Patient arrived in ED. al6 09:57 Shreyas Mera MD is Attending Physician. anselmo 10:15 Jacquie Ochoa, REJI is Primary Nurse. ph 10:17 Arm band placed on Patient placed in an exam room, on a stretcher, on pulse oximetry. ph 10:22 Patient has correct armband on for positive identification. Bed in low position. Call ph light in reach. Side rails up X 1. Pulse ox on. NIBP on. Door closed. Noise minimized. Warm blanket given. Pillow given. 10:24 Triage completed. me1 10:47 Initial lab(s) drawn, by me, sent to lab. EKG done, by ED staff, reviewed by Shreyas Mera MD. Inserted saline lock: 20 gauge in right antecubital area, using aseptic technique. Blood collected. Flushed with 10 mL NS. 16:12 No provider procedures requiring assistance completed. ph 20:42 Attending Physician role handed off by Shreyas Mera MD sp4 20:42 Dieter Jimenez MD is Attending Physician. sp4 21:14 Chest Single View XRAY In Process Unspecified. EDMS 21:35 CT Abd/Pelvis - IV Contrast Only In Process Unspecified. EDMS 22:35 Provided Education on: discharge instrucitons.. jb4 22:35 IV discontinued, intact, bleeding controlled, No redness/swelling at site. Pressure jb4 dressing applied. Administered Medications: 22:42 Discontinued: ns 0.9% 500 ml 500 ml IV at 1 bolus once; to be given as a bolus over 30 jb4 minutes 11:01 Drug: Famotidine IVP 20 mg IVP once; dilute with 10 mL 0.9% NaCl; give over 2 minutes ph Route: IVP; Site: right antecubital; 11:01 Drug: Ondansetron IVP 4 mg IVP once; over 2 minutes Route: IVP; Site: right antecubital;ph 11:01 Drug: NS 0.9% IV 1000 ml IV at 1 bolus Per protocol; to be given as a bolus over 60 ph minutes Route: IV; Rate: 1 bolus; Site: right antecubital; 20:49 Drug: morphine IVP or IV 4 mg IVP once over 4 mins Route: IVP; Infused Over: 4 mins; kd3 Site: right antecubital; 20:49 Drug: Ondansetron IVP 4 mg IVP once; over 2 minutes Route: IVP; Site: right antecubital;kd3 20:49 Drug: Rocephin IV 1 grams IV at per protocol once; Given slow IV push per pharmacy kd3 instructions Route: IV; Rate: per protocol; Site: right antecubital; 20:57 Drug: Acetaminophen PO 1000 mg PO once Route: PO; jb4 22:00 Follow up: Response: No adverse reaction; Marked relief of symptoms jb4 20:58 Drug: Ciprofloxacin PO 500 mg PO once Route: PO; jb4 20:58 Drug: NS 0.9% IV 500 ml 500 ml IV at 1 bolus once; to be given as a bolus over 30 jb4 minutes Volume: 500 ml; Route: IV; Rate: 1 bolus; Site: right antecubital; 20:58 Drug: diphenhydrAMINE IVP 25 mg IVP once Route: IVP; Site: right antecubital; jb4 22:00 Follow up: Response: No adverse reaction; No change in condition jb4 21:20 Drug: Ativan IVP 2 mg IVP once Route: IVP; Site: right antecubital; jb4 22:00 Follow up: Response: No adverse reaction; Marked relief of symptoms; Anxiety decreased; jb4 RASS: Alert and Calm (0) 21:20 Drug: morphine IVP or IV 4 mg IVP once over 4 mins Route: IVP; Infused Over: 4 mins; jb4 Site: right antecubital; 22:00 Follow up: Response: No adverse reaction; Marked relief of symptoms; Pain is decreased; jb4 RASS: Alert and Calm (0) 22:13 Drug: MethylPrednisoLONE IVP 125 mg IVP once Route: IVP; Site: right antecubital; jb4 22:37 Follow up: Response: No adverse reaction jb4 22:14 Not Given (Patient Refused): ns 0.9% 500 ml 500 ml IV at 1 bolus once; to be given as a jb4 bolus over 30 minutes Medication: 11:06 VIS not applicable for this client. ph Outcome: 12:49 Discharge ordered by . anselmo 20:39 Discharge ordered by . anselmo 22:03 Discharge ordered by . sp4 22:35 Discharged to home ambulatory, with family, jb4 22:35 Condition: stable 22:35 Discharge instructions given to patient, family, Instructed on discharge instructions, follow up and referral plans. no drinking with medication, no driving heavy equipment, medication usage, Demonstrated understanding of instructions, follow-up care, medications, Prescriptions given X 4, 22:37 Patient left the ED. vc1 Signatures: Dispatcher [employer] EDShreyas Torres MD MD cha Hall, Patricia RN Ermias Calix ph, RN RN jb4 Charlotte Dotson RN RN kd3 Nimisha Waterman RN RN vc1 Dieter Jimenez MD MD sp4 Jhoana Colon RN RN de1 Violeta Birmingham al6 Corrections: (The following items were deleted from the chart) 15:16 15:16 Reassessment: Patient appears in no apparent distress at this time. Patient jb4 and/or family updated on plan of care and expected duration. Pain level reassessed. Patient is alert/active/playful, equal unlabored respirations, skin warm/dry/pink. jb4 15:17 15:16 Reassessment: Patient appears in no apparent distress at this time. Patient jb4 and/or family updated on plan of care and expected duration. Pain level reassessed. Patient is alert/active/playful, equal unlabored respirations, skin warm/dry/pink. jb4 21:07 15:16 Reassessment: Patient appears in no apparent distress at this time. Patient jb4 and/or family updated on plan of care and expected duration. Pain level reassessed. Patient is alert/active/playful, equal unlabored respirations, skin warm/dry/pink. Pt requesting pain medications, ER physician notified, no new orders at this time. jb4
--- NOTE | 2024-08-20 12:49 | EDPHYS ---
Physician Documentation [facility] Name: Joyce Mera Age: 38 yrs Sex: Female : 1985 Arrival Date: 08/20/2024 Time: 09:50 Bed 2 Private MD: ED Physician Dieter Jimenez HPI: 08/20 12:40 This 38 yrs old Female presents to ER via Wheelchair with complaints of anselmo Breathing Difficulty, Dizziness, Abdominal Pain. 12:40 The patient has shortness of breath at rest, with light activity. Onset: The anselmo symptoms/episode began/occurred 2 day(s) ago. Duration: The symptoms are continuous, and are steadily getting worse. The patient's shortness of breath is aggravated by exertion, light activity, is alleviated by rest, sitting up, application of supplemental oxygen. Associated signs and symptoms: Pertinent positives: dizziness, nausea. Severity of symptoms: At their worst the symptoms were moderate in the emergency department the symptoms are unchanged. The patient has experienced similar episodes in the past, multiple times. 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 - Infectious Disease History:: Denies. - Social history:: Smoking status: Patient denies any tobacco usage or history of. ROS: 12:41 Constitutional: Negative for fever, chills, and weight loss, Eyes: Negative for injury, anselmo pain, redness, and discharge, ENT: Negative for injury, pain, and discharge, Neck: Negative for injury, pain, and swelling, Cardiovascular: Negative for chest pain, palpitations, and edema, Respiratory: Negative for shortness of breath, cough, wheezing, and pleuritic chest pain, Abdomen/GI: Negative for abdominal pain, nausea, vomiting, diarrhea, and constipation, Back: Negative for injury and pain, MS/Extremity: Negative for injury and deformity, Skin: Negative for injury, rash, and discoloration, Psych: Negative for depression, anxiety, suicide ideation, homicidal ideation, and hallucinations, Allergy/Immunology: Negative for hives, rash, and allergies, Endocrine: Negative for neck swelling, polydipsia, polyuria, polyphagia, and marked weight changes, Hematologic/Lymphatic: Negative for swollen nodes, abnormal bleeding, and unusual bruising, 12:41 : Positive for vaginal bleeding, menstrual abnormality, 12:41 Neuro: Positive for gait disturbance, weakness, Exam: 12:41 Constitutional: This is a well developed, well nourished patient who is awake, alert, anselmo and in no acute distress. Head/Face: Normocephalic, atraumatic. Eyes: Pupils equal round and reactive to light, extra-ocular motions intact. Lids and lashes normal. Conjunctiva and sclera are non-icteric and not injected. Cornea within normal limits. Periorbital areas with no swelling, redness, or edema. ENT: Nares patent. No nasal discharge, no septal abnormalities noted. Tympanic membranes are normal and external auditory canals are clear. Oropharynx with no redness, swelling, or masses, exudates, or evidence of obstruction, uvula midline. Mucous membranes moist. Neck: Trachea midline, no thyromegaly or masses palpated, and no cervical lymphadenopathy. Supple, full range of motion without nuchal rigidity, or vertebral point tenderness. No Meningismus. Chest/axilla: Normal chest wall appearance and motion. Nontender with no deformity. No lesions are appreciated. Cardiovascular: Regular rate and rhythm with a normal S1 and S2. No gallops, murmurs, or rubs. Normal PMI, no JVD. No pulse deficits. Respiratory: Lungs have equal breath sounds bilaterally, clear to auscultation and percussion. No rales, rhonchi or wheezes noted. No increased work of breathing, no retractions or nasal flaring. Abdomen/GI: Soft, non-tender, with normal bowel sounds. No distension or tympany. No guarding or rebound. No evidence of tenderness throughout. Back: No spinal tenderness. No costovertebral tenderness. Full range of motion. Skin: Warm, dry with normal turgor. Normal color with no rashes, no lesions, and no evidence of cellulitis. MS/ Extremity: Pulses equal, no cyanosis. Neurovascular intact. Full, normal range of motion., bilateral aka Neuro: Awake and alert, GCS 15, oriented to person, place, time, and situation. Cranial nerves II-XII grossly intact. Motor strength 5/5 in all extremities. Sensory grossly intact. Cerebellar exam normal. Normal gait. 12:41 ECG was reviewed by the Attending Physician. 20:47 Repeat EKG 2040 normal sinus rhythm normal EKG rate 82, no ST elevation or sp4 depression, no ectopy, normal intervals, normal axis. Vital Signs: 10:22 BP 152 / 92; Pulse 88; Resp 18; Temp 98.3; Pulse Ox 100% ; Weight 86.18 kg; Height 5 me1 ft. 4 in. ; Pain 10/10; 11:05 BP 143 / 97; Pulse 84; Resp 18; Pulse Ox 100% on R/A; ph 15:00 BP 154 / 106; Pulse 90; Resp 22; Pulse Ox 100% on R/A; jb4 16:00 BP 152 / 98; Pulse 78; Resp 18; Pulse Ox 99% on R/A; ph 17:00 BP 159 / 98; Pulse 81; Resp 18; Pulse Ox 99% on R/A; ph 18:00 BP 173 / 102; Pulse 75; Resp 18; Pulse Ox 98% on R/A; ph 19:34 BP 145 / 91; Pulse 75; Resp 18; Pulse Ox 100% on R/A; kd3 20:49 BP 142 / 97; Pulse 82; Resp 18; Pulse Ox 100% on R/A; kd3 21:58 BP 124 / 82; Pulse 85; Resp 19; Pulse Ox 100% on R/A; kd3 10:22 Body Mass Index 32.61 (86.18 kg, 162.56 cm) me1 10:22 Pain Scale: Adult me1 MDM: 09:57 Medical Screening Exam initiated anselmo 12:43 Antibiotic administration: Not indicated. Differential diagnosis: cardiac arrhythmia, anselmo generalized weakness, GI bleed, idiopathic dizziness, near-syncope, , syncope, TIA, vertigo, jayjay / metro. Immunization status:. Data reviewed: vital signs, nurses notes, lab test result(s), EKG. Consideration of Admission/Observation Escalation of care including admission/observation considered. I considered the following discharge prescriptions or medication management in the emergency department Medications were administered in the Emergency Department. See MAR. Independent interpretation of the following test(s) in the Emergency Department EKG: See my EKG interpretation above. Test considered but Not performed: Ultrasound no vag usg. Care significantly affected by the following chronic conditions: Hypertension, Obesity, anemia, jayjay/metrorrhagia. Counseling: I had a detailed discussion with the patient and/or guardian regarding the historical points, exam findings, and any diagnostic results supporting the discharge/admit diagnosis, lab results, radiology results, the need for outpatient follow up, for definitive care, an OB/Gyne specialist. 22:02 ED course: COMPARISON: 05/26/22 FINDINGS: LOWER CHEST: No acute process identified.No sp4 significant pericardial effusion. UPPER GI: No significant abnormality. LIVER: No significant focal abnormality. GALLBLADDER/BILE DUCTS: No biliary ductal dilatation.? PANCREAS: No mass, ductal dilation, or ronny-pancreatic fluid. SPLEEN: Unremarkable. ADRENALS: No adrenal masses. KIDNEYS AND URETERS: No hydronephrosis.Low density and/or too small to characterize renal lesions which are statistically benign.No renal calculi.No ureteral calculi. ABDOMINAL AORTA AND OTHER VESSELS: Normal caliber aorta and IVC. PERITONEUM: No abnormal free fluid. No free air. LYMPH NODES: No pathologic lymphadenopathy. ABDOMINAL WALL: Small fat containing umbilical hernia. SMALL BOWEL/COLON: Small bowel has normal course and caliber. No colonic wall thickening or pericolonic inflammatory changes. Normal appendix. URINARY BLADDER: Under distended but grossly unremarkable. REPRODUCTIVE ORGANS: Fluid present within the vaginal canal. Uterine fibroids. MUSCULOSKELETAL: No acute or suspicious osseous abnormality. ADDITIONAL FINDINGS: None. IMPRESSION: No acute findings within the abdomen or pelvis. No appendicitis. Fibroid uterus. . 08/20 11:32 Order name: Type And Screen ph 08/20 09:59 Order name: CBC with Diff; Complete Time: 20:32 [facility] 08/20 09:59 Order name: CMP; Complete Time: 12:08 [facility] 08/20 09:59 Order name: Lipase; Complete Time: 12:08 [facility] 08/20 09:59 Order name: Test, Urine; Complete Time: 12:08 [facility] 08/20 09:59 Order name: Troponin HS; Complete Time: 12:08 [facility] 08/20 09:59 Order name: UA Rfx Henrry Cult if indicated; Complete Time: 12:08 [facility] 08/20 11:49 Order name: Bb Add On bd 08/20 12:03 Order name: Packed RBC Leukored [facility] 08/20 13:44 Order name: CBC Smear Scan; Complete Time: 20:32 [facility] 08/20 20:36 Order name: CT Abd/Pelvis - IV Contrast Only [facility] 08/20 20:51 Order name: Chest Single View XRAY; Complete Time: 21:26 [facility] 08/20 09:59 Order name: EKG; Complete Time: 09:59 [facility] 08/20 20:36 Order name: EKG; Complete Time: 20:36 [facility] 08/20 09:59 Order name: IV Saline Lock; Complete Time: 11:00 [facility] 08/20 09:59 Order name: Labs collected and sent; Complete Time: 11:00 [facility] 08/20 09:59 Order name: EKG - Nurse/Tech; Complete Time: 11:01 [facility] 08/20 12:08 Order name: Transfuse; Complete Time: 19:32 [facility] 08/20 20:36 Order name: EKG - Nurse/Tech; Complete Time: 20:58 [facility] EC:41 Rate is 76 beats/min. Rhythm is regular. QRS [place] is Normal. AR interval is normal. QT anselmo interval is normal. No Q waves. No ST changes noted. Clinical impression: Normal ECG and No evidence of ischemia. Interpreted by me. Reviewed by me. Administered Medications: 22:42 Discontinued: ns 0.9% 500 ml 500 ml IV at 1 bolus once; to be given as a bolus over 30 jb4 minutes 11:01 Drug: Famotidine IVP 20 mg IVP once; dilute with 10 mL 0.9% NaCl; give over 2 minutes ph Route: IVP; Site: right antecubital; 11:01 Drug: Ondansetron IVP 4 mg IVP once; over 2 minutes Route: IVP; Site: right antecubital;ph 11:01 Drug: NS 0.9% IV 1000 ml IV at 1 bolus Per protocol; to be given as a bolus over 60 ph minutes Route: IV; Rate: 1 bolus; Site: right antecubital; 20:49 Drug: morphine IVP or IV 4 mg IVP once over 4 mins Route: IVP; Infused Over: 4 mins; kd3 Site: right antecubital; 20:49 Drug: Ondansetron IVP 4 mg IVP once; over 2 minutes Route: IVP; Site: right antecubital;kd3 20:49 Drug: Rocephin IV 1 grams IV at per protocol once; Given slow IV push per pharmacy kd3 instructions Route: IV; Rate: per protocol; Site: right antecubital; 20:57 Drug: Acetaminophen PO 1000 mg PO once Route: PO; jb4 22:00 Follow up: Response: No adverse reaction; Marked relief of symptoms jb4 20:58 Drug: Ciprofloxacin PO 500 mg PO once Route: PO; jb4 20:58 Drug: NS 0.9% IV 500 ml 500 ml IV at 1 bolus once; to be given as a bolus over 30 jb4 minutes Volume: 500 ml; Route: IV; Rate: 1 bolus; Site: right antecubital; 20:58 Drug: diphenhydrAMINE IVP 25 mg IVP once Route: IVP; Site: right antecubital; jb4 22:00 Follow up: Response: No adverse reaction; No change in condition jb4 21:20 Drug: Ativan IVP 2 mg IVP once Route: IVP; Site: right antecubital; jb4 22:00 Follow up: Response: No adverse reaction; Marked relief of symptoms; Anxiety decreased; jb4 RASS: Alert and Calm (0) 21:20 Drug: morphine IVP or IV 4 mg IVP once over 4 mins Route: IVP; Infused Over: 4 mins; jb4 Site: right antecubital; 22:00 Follow up: Response: No adverse reaction; Marked relief of symptoms; Pain is decreased; jb4 RASS: Alert and Calm (0) 22:13 Drug: MethylPrednisoLONE IVP 125 mg IVP once Route: IVP; Site: right antecubital; jb4 22:37 Follow up: Response: No adverse reaction jb4 22:14 Not Given (Patient Refused): ns 0.9% 500 ml 500 ml IV at 1 bolus once; to be given as a jb4 bolus over 30 minutes Disposition Summary: 08/20/24 22:03 Discharge Ordered Notes: Location: Home(08/20/24 22:03) sp4 Problem: new(08/20/24 22:03) sp4 Symptoms: have improved(08/20/24 22:03) sp4 Condition: Stable(08/20/24 22:03) sp4 Diagnosis - Abnormal uterine and vaginal bleeding, unspecified(08/20/24 22:03) sp4 - Other specified abnormal uterine and vaginal bleeding(08/20/24 22:03) sp4 - UTI/ Urinary tract infection, site not specified(08/20/24 22:03) sp4 Followup: anselmo - With: Private Physician - When: 2 - 3 days - Reason: Recheck today's complaints, Continuance of care, Re-evaluation by your physician Discharge Instructions: - Discharge Summary Sheet anselmo - Abnormal Uterine Bleeding anselmo - Iron Deficiency Anemia, Adult anselmo - Anemia anselmo - Dysuria anselmo - Menorrhagia anselmo - Urinary Tract Infection, Adult anselmo - Urinary Tract Infection, Adult, [id number] anselmo - Menorrhagia, Qvxk-zy-Laeu anselmo - Abnormal Uterine Bleeding, Oyul-rh-Kyxc anselmo - Iron Deficiency Anemia, Adult, [id number]-[id number] anselmo Forms: - Work release form jb4 - Medication Reconciliation Form sp4 - Antibiotic Education sp4 - Prescription Opioid Use sp4 - Patient Portal Instructions sp4 - Leadership Thank You Letter sp4 Prescriptions: - Cipro 250 mg Oral Tablet - take 2 tablets ORAL route every 12 hours; 20 tablet; Refills: 0, Product anselmo Selection Permitted - Ferrous Sulfate 325 mg (65 mg Iron) Oral tablet - take 1 tablet ORAL route every 8 hours; 30 tablet; Refills: 0, Product anselmo Selection Permitted - tramadol 100 mg Oral tablet - take 1 tablet ORAL route every 8 hours as needed for pain; 30 tablet; Refills: sp4 0, Product Selection Permitted - promethazine 25 mg Oral tablet - take 1 tablet ORAL route every 8 hours As needed PRN nausea; 30 tablet; sp4 Refills: 0, Product Selection Permitted Signatures: Dispatcher [employer] Shreyas Arellano MD MD cha Hall, Patricia, RN RN ph Bryson, James RN RN jb4 Charlotte Dotson RN RN kd3 Dieter Jimenez MD MD sp4 Jhoana Colon RN RN me1 Corrections: (The following items were deleted from the chart) 20:38 12:49 Home anselmo anselmo 20:38 12:49 new anselmo anselmo 20:38 12:49 have improved anselmo anselmo 20:38 12:49 Stable anselmo anselmo 20:38 12:49 Abnormal uterine and vaginal bleeding, unspecified anselmo anselmo 20:38 12:49 Other specified abnormal uterine and vaginal bleeding anselmo anselmo 20:38 20:33 UTI/ Urinary tract infection, site not specified anselmo anselmo 20:39 20:39 Home anselmo anselmo 20:39 20:39 new anselmo anselmo 20:39 20:39 have improved anselmo anselmo 20: 20:39 Stable anselmo anselmo 20:39 20:39 Abnormal uterine and vaginal bleeding, unspecified anselmo anselmo 20:39 20:39 Other specified abnormal uterine and vaginal bleeding [facility] 20:51 20:51 Chest Single View+[email or web address].[email or web address] ordered. EDMS EDMS
[2024-08-20] MEDS ORDERED: ACETAMINOPHEN 500 MG TAB ONE ×2 (13:40→20:49)
[2024-08-20] MEDS ORDERED: NA CHLORIDE 0.9% 250 ML ONE (13:41)
[2024-08-20 13:52] LABS: Blood Morphology Comment NOTED (NOT SEEN); Platelet Estimate ADEQ; White Blood Cell Scan OK (OK)
[2024-08-20 13:53] LABS: Anisocytosis 2+; Hypochromasia 1+; Microcytosis 1+; Polychromasia SLIGHT
[2024-08-20] MEDS ORDERED: MORPHINE 4 MG/ML SYR ONE ×2 (20:39→21:18)
[2024-08-20] MEDS ORDERED: CEFTRIAXONE 1000 MG/VIAL ONE (20:39)
[2024-08-20] MEDS ORDERED: CIPROFLOXACIN HCL 500 MG TAB ONE (20:39)
[2024-08-20] MEDS ORDERED: DIPHENHYDRAMINE 50 MG/ML VIAL ONE (20:49)
[2024-08-20] MEDS ORDERED: NA CHLORIDE 0.9% 500 ML ONE ×2 (20:49→22:05)
--- NOTE | 2024-08-20 21:15 | RAD REPORT ---
EXAM: Chest Single View HISTORY: 38 years Female DYSPNEA COMPARISON: 07/09/2024 FINDINGS: LUNGS/PLEURA: The lungs are clear. No pleural effusions or pneumothorax. No pulmonary edema. CARDIAC/MEDIASTINUM: The cardiac silhouette is within normal limits. UPPER ABDOMEN: No significant abnormality. BONES: No acute abnormality. LINES/TUBES/OTHER: N/A IMPRESSION: No evidence of acute cardiopulmonary disease. No significant change from prior.
[2024-08-20] MEDS ORDERED: LORazepam 2 MG/ML VIAL ONE (21:18)
--- NOTE | 2024-08-20 21:45 | RAD REPORT ---
EXAMINATION: Abdomen Pelvis W Contrast CLINICAL INDICATION: Female, 38 years old.ABD PAIN TECHNIQUE: CT abdomen and pelvis was performed, after the administration of IV contrast, as per [facility] protocol. Axial, sagittal and coronal reconstructions were obtained. One or more of the following dose reduction techniques were used: Automated exposure control, adjustment of the mA and/o r kV according to patient size, and/or iterative reconstruction. Unless otherwise specified, incidental findings do not require dedicated imaging follow-up. [id number]. COMPARISON: 05/26/22 FINDINGS: LOWER CHEST: No acute process identified.No significant pericardial effusion. UPPER GI: No significant abnormality. LIVER: No significant focal abnormality. GALLBLADDER/BILE DUCTS: No biliary ductal dilatation.? PANCREAS: No mass, ductal dilation, or ronny-pancreatic fluid. SPLEEN: Unremarkable. ADRENALS: No adrenal masses. KIDNEYS AND URETERS: No hydronephrosis.Low density and/or too small to characterize renal lesions whi ch are statistically benign.No renal calculi.No ureteral calculi. ABDOMINAL AORTA AND OTHER VESSELS: Normal caliber aorta and IVC. PERITONEUM: No abnormal free fluid. No free air. LYMPH NODES: No pathologic lymphadenopathy. ABDOMINAL WALL: Small fat containing umbilical hernia. SMALL BOWEL/COLON: Small bowel has normal course and caliber. No colonic wall thickening or pericolon ic inflammatory changes.Normal appendix. URINARY BLADDER: Underdistended but grossly unremarkable. REPRODUCTIVE ORGANS: Fluid present within the vaginal canal. Uterine fibroids. MUSCULOSKELETAL: No acute or suspicious osseous abnormality. ADDITIONAL FINDINGS: None. IMPRESSION: No acute findings within the abdomen or pelvis. No appendicitis. Fibroid uterus.
[2024-08-20] MEDS ORDERED: METHYLPREDNISOLONE 125 MG INJ ONE (22:05)
[2024-08-20 23:20] VITALS: TEMP 98.3
[2024-08-20 23:28] VITALS: O2SAT 100
[2024-08-20 23:31] VITALS: BP 124/82
--- NOTE | 2024-08-21 11:39 | EKG ---
Test Date: 2024-08-20 Test Time: 20:40:02 Store Product Demonstrator: LELIA MEASUREMENT RESULTS: Intervals: Rate: 82 OR: 146 QRSD: 102 QT: 400 QTc: 467 [place]: P: 56 OR: 146 QRS: 80 T: 79 INTERPRETIVE STATEMENTS: Normal sinus rhythm Normal ECG Compared to ECG 07/09/2024 19:56:03 No significant changes Electronically Signed On 08-21-24 11:38:22 CDT by Lobito Mathew
--- NOTE | 2024-08-21 11:43 | EKG ---
Test Date: 2024-08-20 Test Time: 10:42:53 Superintendent Pipelines: PALMA MEASUREMENT RESULTS: Intervals: Rate: 76 ND: 140 QRSD: 110 QT: 410 QTc: 461 [place]: P: 44 ND: 140 QRS: 54 T: 52 INTERPRETIVE STATEMENTS: Normal sinus rhythm Normal ECG Compared to ECG 07/09/2024 19:56:03 No significant changes Electronically Signed On 08-21-24 11:40:14 CDT by Lobito Mathew
== END 2024-08-20 22:37 | disposition home or self-care (01) ==
LOC: ER 09:50
PROC: 30233N1 Transfusion of Nonautologous Red Blood Cells into Peripheral Vein, Percutaneous Approach (ICD-10-PCS; principal; 2024-08-20)
DX: N93.8 Other specified abnormal uterine and vaginal bleeding (principal); N39.0 Urinary tract infection, site not specified
CPT/HCPCS: 93005 ×2; 85025; 81001; 36415; 86900; 86850; 81025; 86901; 86920 ×2; 84484; 83690; 80053; 86922 ×2; 74177; 71045; 96375; 96374; 99285; 36430; Q9967; J1200; J2919; J2405 ×2; P9016 ×2; J7050; J7040 ×2; J7030; J0696